=== PATIENT | male | born 1960 | race Caucasian/White ===

== ENCOUNTER 2018-09-22 10:39 | Emergency (ER) | payer OTHER, MEDICARE ==
[2018-09-22 11:05] VITALS: BP 87/53
--- NOTE | 2018-09-22 12:47 | EDM.PDOC ---
ED HPI GENERAL MEDICAL PROBLEM - General Chief Complaint: Cardiovascular Problem Stated Complaint: FROM CLINIC DIZZY;LOW BLOOD PRESSURE Time Seen by Provider: 09/22/18 11:20 Source of Information: Reports: Patient, Family History Limitations: Reports: No Limitations - History of Present Illness INITIAL COMMENTS - FREE TEXT/NARRATIVE: 58-year-old male with chronic lower extremity edema and progressive weakness presented to clinic for follow-up and was found to be hypotensive so was sent to the emergency room. He does feel dizzy and lightheaded, has no energy. No pain. Intermittent visual disturbance of the left eye which is chronic. Onset: Gradual Associated Symptoms: Reports: Malaise, Weakness. Denies: Confusion, Chest Pain , Cough, Diaphoresis, Fever/Chills, Nausea/Vomiting Lower Back Pain Score (Numeric/FACES): 6 - Related Data Allergies Allergy/AdvReac Type Severity Reaction Status Date / Time amiodarone Allergy Burning Verified 09/22/18 11:03 insulin aspart [From Novolog] Allergy Rash Verified 09/22/18 11:03 tape Allergy Blisters Uncoded 04/15/16 16:24 Home Meds: Home Meds Nitroglycerin [Nitrostat] 0.4 mg SL ASDIRECTED 11/16/14 [History] Testosterone Cypionate 1.5 ml IM .[id number] 11/16/14 [History] Cyanocobalamin (Vitamin B12) [Vitamin B12] 1,000 mcg PO DAILY #100 tablet [Rx] Multivitamin [Multivitamins] 1 each PO BID #100 tab.chew 03/19/16 [Rx] Furosemide 1 tab PO DAILY 09/22/18 [History] Past Medical History Cardiovascular History: Reports: Angina, CAD, High Cholesterol, Hypertension, [place] , Stents Respiratory History: Reports: Sleep Apnea Gastrointestinal History: Reports: GERD Genitourinary History: Reports: Acute Renal Failure, Chronic Renal Insuffiency, Renal Disease Musculoskeletal History: Reports: Back Pain, Chronic, Fracture Endocrine/Metabolic History: Reports: Diabetes, Type II, IDDM, Obesity/BMI 30+ - Infectious Disease History Infectious Disease History: Reports: Chicken Pox, Measles, Mumps - Past Surgical History HEENT Surgical History: Reports: Adenoidectomy, Tonsillectomy Cardiovascular Surgical History: Reports: Coronary Artery Stent GI Surgical History: Reports: Bariatric Procedure, Cholecystectomy, Hernia Repair/Other Male Surgical History: Reports: Circumcision Musculoskeletal Surgical History: Reports: Other (See Below) Other Musculoskeletal Surgeries/Procedures:: kienbocks disease with wrist repair Social & Family History - Tobacco Use Smoking Status *Q: Heavy Tobacco Smoker Years of Tobacco use: 40 Packs/Tins Daily: 1 - Recreational Drug Use Recreational Drug Use: No ED ROS GENERAL - Review of Systems Review Of Systems: See Below Constitutional: Reports: Malaise. Denies: Fever, Chills HEENT: Reports: Vision Change (Some intermittent blurriness of the left eye) Respiratory: Denies: Shortness of Breath Cardiovascular: Reports: Other (Recent echocardiogram was reassuring). Denies: Chest Pain, Palpitations GI/Abdominal: Reports: No Symptoms Neurological: Reports: Weakness ED EXAM, GENERAL - Physical Exam Exam: See Below Exam Limited By: No Limitations General Appearance: Alert, No Apparent Distress Eye Exam: Bilateral Eye: EOMI, PERRL Respiratory/Chest: No Respiratory Distress, Lungs Clear Cardiovascular: Regular Rate, Rhythm. No: Extra Beats GI/Abdominal: Soft, Non-Tender Extremities: Other (Significant lower extremity edema proximal to the knees and distally. Bilaterally symmetric.) Psychiatric: Depressed Mood Skin Exam: Warm, Dry Course - Vital Signs Last Recorded V/S: Last Vital Signs Temp 92.8 F L 09/22/18 11:01 Pulse 61 09/22/18 11:01 Resp 14 09/22/18 11:01 BP 87/53 L 09/22/18 11:01 Pulse Ox 96 09/22/18 11:01 - Orders/Labs/Meds Labs: Laboratory Tests 09/22/18 09/22/18 09/22/18 Range/Units 11:40 11:40 12:25 WBC 6.1 (4.5-11.0) K/uL RBC 2.59 L (4.30-5.90) M/uL Hgb 9.2 L D (12.0-15.0) g/dL Hct 27.4 L (40.0-54.0) % MCV 106 H (80-98) fL MCH 36 H (27-31) pg MCHC 34 (32-36) % Plt Count 80 L (150-400) K/uL Neut % (Auto) 71 H (36-66) % Lymph % (Auto) 22 L (24-44) % [place] % (Auto) 7 H (2-6) % Eos % (Auto) 1 L (2-4) % Baso % (Auto) 0 (0-1) % Sodium 142 (140-148) mmol/L Potassium 3.9 (3.6-5.2) mmol/L Chloride 106 (100-108) mmol/L Carbon Dioxide 28 (21-32) mmol/L Anion Gap 7.6 (5.0-14.0) mmol/L BUN 41 H D (7-18) mg/dL Creatinine 1.3 (0.8-1.3) mg/dL Est Cr Clr Drug Dosing 48.36 mL/min Estimated GFR (MDRD) 57 L (>60) Glucose 60 L (74-106) mg/dL Calcium 8.6 (8.5-10.1) mg/dL Total Bilirubin 0.8 (0.2-1.0) mg/dL AST 57 H (15-37) U/L ALT 64 (12-78) U/L Alkaline Phosphatase 145 H D (46-116) U/L Total Protein 5.2 L (6.4-8.2) g/dL Albumin 2.6 L (3.4-5.0) g/dL Globulin 2.6 (2.3-3.5) g/dL Albumin/Globulin Ratio 1.0 L (1.2-2.2) Urine Color Yellow Urine Appearance Clear Urine pH 5.0 (4.5-8.0) Ur Specific [place] 1.010 (1.008-1.030) Urine Protein Trace (NEGATIVE) mg/dL Urine Glucose (UA) Normal (NEGATIVE) mg/dL Urine Ketones Negative (NEGATIVE) mg/dL Urine Occult Blood Negative (NEGATIVE) Urine Nitrite Negative (NEGAITVE) Urine Bilirubin Negative (NEGATIVE) Urine Urobilinogen Normal (NORMAL) mg/dL Ur Leukocyte Esterase Negative (NEGATIVE) Urine RBC Not seen (0-5) Urine WBC 0-5 (0-5) Ur Epithelial Cells Not seen Amorphous Sediment Moderate Urine Bacteria Not seen Urine Mucus Not seen - Re-Assessments/Exams Free Text/Narrative Re-Assessment/Exam: 09/22/18 12:46 CBC, CMP and UA were obtained. 09/22/18 13:03 CBC revealed a hemoglobin of 9.1, this is concerning as his hemoglobin was 11.8 in early July. The rest of his labs look relatively reassuring, his UA is negative and specific gravity is normal at 1.010. I don't think he is significantly dehydrated. His BUN is also elevated at 41 which is concerning for a GI bleed. I offered the patient hospitalization but he has an appointment with his primary doctor tomorrow and would like to discuss this with him. Departure - Departure Time of Disposition: 13:15 Disposition: Home, Self-Care 01 Condition: Fair Clinical Impression: Peripheral edema, Weakness Anemia Qualifiers: Anemia type: iron deficiency Iron deficiency anemia type: chronic blood loss Qualified Code(s): D50.0 - Iron deficiency anemia secondary to blood loss ( chronic) Instructions: Anemia Referrals: Sammy Vallejo MD [Primary Care Provider] - Forms: ED Department Discharge Care Plan Goals: Take lab results with to your appointment tomorrow, continue your medications as directed.
== END 2018-09-22 13:28 | disposition home or self-care (01) ==
LOC: JP.ED 10:39
DX: R60.0 Localized edema (principal); R53.1 Weakness; D50.0 Iron deficiency anemia secondary to blood loss (chronic); I12.9 Hypertensive chronic kidney disease with stage 1 through stage 4 chronic kidney disease, or unspecified chronic kidney disease; E11.22 Type 2 diabetes mellitus with diabetic chronic kidney disease; N18.9 Chronic kidney disease, unspecified; I25.10 Atherosclerotic heart disease of native coronary artery without angina pectoris; E78.00 Pure hypercholesterolemia, unspecified; I25.2 Old myocardial infarction; K21.9 Gastro-esophageal reflux disease without esophagitis; F17.210 Nicotine dependence, cigarettes, uncomplicated; Z88.8 Allergy status to other drugs, medicaments and biological substances; Z79.899 Other long term (current) drug therapy; Z95.5 Presence of coronary angioplasty implant and graft
CPT/HCPCS: 36415; 80053; 81001; 85025; 99283; 99284

== ENCOUNTER 2018-09-26 10:21 | Inpatient (IN) | payer OTHER, MEDICARE ==
[2018-09-26] MEDS ORDERED: Acetaminophen 650 MG Supp RECTAL PRN (11:11)
[2018-09-26] MEDS ORDERED: Dextrose 5%-Lactated Ringers 1,000 ML IV SCH (11:15)
[2018-09-26] MEDS: Furosemide 20 MG Tab PO SCH ×2 (14:04→14:08)
[2018-09-26] MEDS: Pantoprazole 40 MG Vial IV SCH ×2 (14:04→14:14)
[2018-09-26] MEDS ORDERED: Bisacodyl 5 MG Tab PO ONE ×2 (16:30→20:00)
[2018-09-26] MEDS ORDERED: Polyethylene Glycol 3350 Powder 238 GM Bot PO ONE (17:00)
[2018-09-26] MEDS: Dextrose 5%-Lactated Ringers 1,000 ML with MVI, Adult with Vitamin K 10 ML, Chromium/Co... IV SCH ×4 (21:47)
[2018-09-27] MEDS ORDERED: Propofol 200 MG/20 ML SDV ONE ×2 (07:06→09:04)
[2018-09-27] MEDS ORDERED: fentaNYL 100 MCG/2 ML SDV ONE (07:06)
[2018-09-27] MEDS ORDERED: Midazolam 1 MG/ML 2 ML SDV ONE (07:07)
[2018-09-27] MEDS ORDERED: Bupivacaine 0.5% 50 ML MDV ONE (07:24)
[2018-09-27] MEDS ORDERED: Lidocaine 1% with EPINEPHrine 1:100,000 50 ML MDV ONE (07:25)
[2018-09-27] MEDS ORDERED: Lactated Ringers 1,000 ML ONE (09:47)
[2018-09-27] MEDS: Dextrose 5%-Lactated Ringers 1,000 ML with MVI, Adult with Vitamin K 10 ML, Chromium/Co... IV SCH ×4 (11:43)
--- NOTE | 2018-09-27 12:14 | PCM.CONS ---
H&P History of Present Illness - General Date of Service: 09/27/18 Admit Problem/Dx: Admission Diagnosis/Problem Admission Diagnosis/Problem Hypotension Source of Information: Patient, Family, Provider History Limitations: Reports: Altered Mental Status (sleepy after anesthesia ) - History of Present Illness Initial Comments - Free Text/Narative: Galen was admitted to the hospital yesterday from the clinic with dehydration and malnourishment. I was asked to see him by Dr. Nicolas regarding newly diagnosed hypothyroidism. He is in the early recovery phase after having anesthesia for an EGD and colonoscopy and history is somewhat limited. He does report a downhill slide over the past couple of years but more impressively in the past couple of months. He has lost significant weight. Appetite has been good but anytime he eats he has significant diarrhea afterwards. He does not endorse abdominal pain. He has not had any fevers. He does not endorse shortness of breath or dyspnea with exertion. He does endorse significant fatigue and falls asleep multiple times per day. He thinks he's been sleeping much more than his normal. He fatigues quickly whenever he is trying to perform a task. He has not noticed any changes with his hair. He does have chronic lower extremity edema which is relatively stable. EGD this morning was fairly unremarkable and colonoscopy was incomplete as far as the prep was concerned but visualization was thought to be adequate and no acute findings were noted. He is receiving a unit of blood for hemoglobin of 8.5. He has multiple bottles of albumin ordered. TPN is going to be started through a Godfrey catheter that was placed today. Laboratory testing this morning revealed a TSH of nearly 40. He does not have a history of hypothyroidism. Buttock Pain Score (Numeric/FACES): 4 - Related Data Allergies/Adverse Reactions: Allergies Allergy/AdvReac Type Severity Reaction Status Date / Time amiodarone Allergy Burning Verified 09/22/18 11:03 insulin aspart [From Novolog] Allergy Rash Verified 09/22/18 11:03 tape Allergy Blisters Uncoded 04/15/16 16:24 Home Medications: Home Meds Nitroglycerin [Nitrostat] 0.4 mg SL ASDIRECTED 11/16/14 [History] Testosterone Cypionate 1.5 ml IM .[id number] 11/16/14 [History] Cyanocobalamin (Vitamin B12) [Vitamin B12] 1,000 mcg PO DAILY #100 tablet [Rx] Multivitamin [Multivitamins] 1 each PO BID #100 tab.chew 03/19/16 [Rx] Furosemide 0.5 tab PO DAILY 09/22/18 [History] Calcium Carbonate/Vitamin D3 [Calcium 500-Vit D3 600 Tablet] 1 tab PO BID [History] Folic Acid 1 mg PO DAILY 09/26/18 [History] Loperamide [Imodium] 2 mg PO QID 09/26/18 [History] Nitroglycerin [Nitrostat] 0.4 mg SL ASDIRECTED PRN 09/26/18 [History] Pantoprazole Sodium [Protonix] 40 mg PO DAILY 09/26/18 [History] Thiamine HCl [B-1] 100 mg PO DAILY 09/26/18 [History] Zinc Gluconate [Zinc] 15 mg PO DAILY 09/26/18 [History] Past Medical History Cardiovascular History: Reports: Angina, CAD, High Cholesterol, Hypertension, [place] , Stents Respiratory History: Reports: Sleep Apnea Other Respiratory History: sleep apnea resolved with weight loss Gastrointestinal History: Reports: GERD Other Gastrointestinal History: GERD resolved with bariatric surgery Genitourinary History: Reports: Acute Renal Failure, Chronic Renal Insuffiency, Renal Disease Musculoskeletal History: Reports: Back Pain, Chronic, Fracture Endocrine/Metabolic History: Reports: Diabetes, Type II, IDDM Other Endocrine/Metabolic History: diabetes resloved with bariatric surgery - Infectious Disease History Infectious Disease History: Reports: Chicken Pox, Measles, Mumps - Past Surgical History HEENT Surgical History: Reports: Adenoidectomy, Tonsillectomy Cardiovascular Surgical History: Reports: Coronary Artery Stent GI Surgical History: Reports: Bariatric Procedure, Cholecystectomy, Hernia Repair/Other Male Surgical History: Reports: Circumcision Musculoskeletal Surgical History: Reports: Other (See Below) Other Musculoskeletal Surgeries/Procedures:: 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 Social & Family History - Family History Family Medical History: Noncontributory - Tobacco Use Smoking Status *Q: Current Every Day Smoker Years of Tobacco use: 40 Packs/Tins Daily: 1 Used Tobacco, but Quit: No Second Hand Smoke Exposure: Yes - Caffeine Use Caffeine Use: Reports: Coffee, Energy Drinks, Soda, Tea - Alcohol Use Alcohol Use History: No - Recreational Drug Use Recreational Drug Use: No H&P Review of Systems - Review of Systems: Review Of Systems: See Below Free Text/Narrative: A complete 12 point review of systems was obtained. Pertinent positives and negatives are noted in the history of present illness. All other systems were reviewed and were negative except as noted. Exam - Exam Exam: See Below - Vital Signs Vital Signs: Last Vital Signs Temp 35.3 C 09/27/18 12:06 Pulse 50 L 09/27/18 12:06 Resp 22 H 09/27/18 12:06 BP 86/52 L 09/27/18 12:06 Pulse Ox 94 L 09/27/18 11:47 Weight: 55 kg - Exam Quality Assessment: Supplemental Oxygen General: Alert, Oriented, Cooperative, Lethargic HEENT: Conjunctiva Clear, Other (poor dentition ). No: Mucosa Moist & [place] (dry ), Scleral Icterus Neck: Supple, Trachea Midline. No: Lymphadenopathy Lungs: Clear to Auscultation, Normal Respiratory Effort Cardiovascular: Regular Rate, Regular Rhythm. No: Systolic Murmur GI/Abdominal Exam: Soft, Non-Tender, No Distention, Abnormal Bowel Sounds ( hypoactive) Extremities: Pedal Edema (pitting edema to midshin bilaterally ), Other (mild swelling both hands). No: Increased Warmth Skin: Warm, Dry Neuro Extensive - Mental Status: Alert, Slow Response to Commands Neuro Extensive - Motor, Sensory, Reflexes: CN II-XII Intact. No: Dysarthria, Tremor Psychiatric: Alert. No: Anxious - Patient Data Lab Results Last 24 hrs: Laboratory Results - last 24 hr 09/27/18 09/27/18 09/27/18 Range/Units 04:50 04:50 06:38 WBC 4.4 L (4.5-11.0) K/uL RBC 2.48 L (4.30-5.90) M/uL Hgb 8.7 L (12.0-15.0) g/dL Hct 26.2 L (40.0-54.0) % MCV 106 H (80-98) fL MCH 35 H (27-31) pg MCHC 33 (32-36) % Plt Count 57 L (150-400) K/uL Sodium 146 (140-148) mmol/L Potassium 3.6 (3.6-5.2) mmol/L Chloride 111 H (100-108) mmol/L Carbon Dioxide 30 (21-32) mmol/L Anion Gap 8.6 (5.0-14.0) mmol/L BUN 31 H (7-18) mg/dL Creatinine 1.0 (0.8-1.3) mg/dL Est Cr Clr Drug Dosing 62.64 mL/min Estimated GFR (MDRD) > 60 (>60) Glucose 76 (74-106) mg/dL Calcium 8.9 (8.5-10.1) mg/dL Phosphorus 2.5 (2.5-4.9) mg/dL Magnesium 1.9 (1.8-2.4) mg/dL Total Bilirubin 0.8 (0.2-1.0) mg/dL AST 44 H (15-37) U/L ALT 51 (12-78) U/L Alkaline Phosphatase 116 (46-116) U/L NT-Pro-B Natriuret Pep 276 H (5-125) pg/mL Total Protein 4.7 L (6.4-8.2) g/dL Albumin 2.5 L (3.4-5.0) g/dL Globulin 2.2 L (2.3-3.5) g/dL Albumin/Globulin Ratio 1.1 L (1.2-2.2) TSH, Ultra Sensitive 39.961 H (0.358-3.740) uIU/mL Blood Type Gel Antibody Screen Crossmatch 09/27/18 Range/Units 06:40 WBC (4.5-11.0) K/uL RBC (4.30-5.90) M/uL Hgb (12.0-15.0) g/dL Hct (40.0-54.0) % MCV (80-98) fL MCH (27-31) pg MCHC (32-36) % Plt Count (150-400) K/uL Sodium (140-148) mmol/L Potassium (3.6-5.2) mmol/L Chloride (100-108) mmol/L Carbon Dioxide (21-32) mmol/L Anion Gap (5.0-14.0) mmol/L BUN (7-18) mg/dL Creatinine (0.8-1.3) mg/dL Est Cr Clr Drug Dosing mL/min Estimated GFR (MDRD) (>60) Glucose (74-106) mg/dL Calcium (8.5-10.1) mg/dL Phosphorus (2.5-4.9) mg/dL Magnesium (1.8-2.4) mg/dL Total Bilirubin (0.2-1.0) mg/dL AST (15-37) U/L ALT (12-78) U/L Alkaline Phosphatase (46-116) U/L NT-Pro-B Natriuret Pep (5-125) pg/mL Total Protein (6.4-8.2) g/dL Albumin (3.4-5.0) g/dL Globulin (2.3-3.5) g/dL Albumin/Globulin Ratio (1.2-2.2) TSH, Ultra Sensitive (0.358-3.740) uIU/mL Blood Type O POSITIVE Gel Antibody Screen Negative Crossmatch See Detail Result Diagrams: 09/27/18 04:50 09/27/18 04:50 Imaging Impressions Last 24 hrs: CXR - images from Godfrey insertion personally reviewed - catheter tip appears to be in a good location. No obvious infiltrate. Consult PN Assessment/Plan POD#: 0 Procedures: Procedures ASSAY ALKALINE PHOSPHATASE (11/20/14) BILIRUBIN TOTAL (11/20/14) BLOOD TYPING SEROLOGIC ABO (09/26/15) BLOOD TYPING SEROLOGIC RH(D) (09/26/15) CHEST X-RAY 2VW FRONTAL&LATL (11/20/14) COMPLETE CBC AUTOMATED (11/20/14) COMPLETE CBC W/AUTO DIFF WBC (09/22/18) COMPREHEN METABOLIC PANEL (09/22/18) EMERGENCY DEPT VISIT (09/22/18) GLUCOSE BLOOD TEST (11/20/14) HYDRATION IV INFUSION INIT (04/15/16) LAP VENT/ABD HERNIA REPAIR (11/20/14) LAPAROSCOPIC CHOLECYSTECTOMY (11/20/14) POLYSOM ANY AGE 1-3> GISELLA (02/03/16) RBC ANTIBODY SCREEN (09/26/15) ROUTINE VENIPUNCTURE (09/22/18) THER/PROPH/DIAG IV INF ADDON (04/15/16) THER/PROPH/DIAG IV INF INIT (04/15/16) TTE W/DOPPLER COMPLETE (08/09/18) TX/PRO/DX INJ NEW DRUG ADDON (04/15/16) URINALYSIS AUTO W/SCOPE (09/22/18) (1) Acquired hypothyroidism SNOMED Code(s): 644789694 Code(s): E03.9 - HYPOTHYROIDISM, UNSPECIFIED Current Visit: Yes Problem List Initiated/Reviewed/Updated: Yes My Orders Last 24 Hours: My Active Orders 09/27/18 11:00 Levothyroxine [Synthroid] 100 mcg PO ACBREAKFAST 09/27/18 12:11 T4 FREE [CHEM] Routine 09/28/18 04:00 CRP [C-REACTIVE PROTEIN] [CHEM] Timed FERRITIN [CHEM] Timed VITAMIN B12 [CHEM] Timed Plan: ASSESSMENT AND PLAN - Acquired hypothyroidism - TSH is elevated at nearly 40 and T4 is low consistent with hypothyroid state. I think he would benefit from supplementation and will start at 1.6 mcg/kg which is roughly 100 g. -Initiate levothyroxine 100 mcg daily starting today -Recheck level in 4-6 weeks Dehydration and malnutrition - significant weight loss over the past couple of years. He does have a history of a duodenal switch. He has received IV fluids overnight. A Godfrey catheter has been placed to start TPN. Anemia is likely related to nutritional deficiencies. -Additional cares per surgical team Hypotension and bradycardia - still appears to have intravascular volume depletion. Probable contribution from his hypothyroidism. He is receiving albumin which will hopefully help his blood pressure and the blood transfusion should help as well. Stress dose steroids with hydrocortisone could be considered if he remains hypotensive and/or bradycardic. Kentrell Merino M.D. Requesting Provider: Dr Nicolas Date Consult Requested: 09/27/18 Reason for Consult: hypothyroidism Patient History Reviewed: Yes Admission H&P Reviewed: Yes Notified Requestor: No Time Spent (in minutes): 50
[2018-09-27] MEDS: Aspirin 81 MG Tab.EC PO SCH (12:24)
[2018-09-27] MEDS: Levothyroxine 100 MCG Tab PO SCH (12:26)
[2018-09-27] MEDS ORDERED: traMADol 50 MG Tab PO PRN (12:48)
[2018-09-27] MEDS: Pantoprazole 40 MG Vial IV SCH (13:00)
[2018-09-27] MEDS ORDERED: Acetaminophen 1,000 MG in Premix Bag 1 BAG IV ONE (13:00)
[2018-09-27] MEDS: Levofloxacin/Dextrose 5%-Water 500 MG in Premix Bag 1 BAG IV ONE ×2 (13:25→20:47)
[2018-09-27] MEDS: Clindamycin Phosphate 900 MG in Sodium Chloride 0.9% 100 ML IV ONE ×2 (13:26→20:47)
[2018-09-27] MEDS ORDERED: Sodium Chloride 0.9% 1,000 ML IV SCH (14:00)
[2018-09-27] MEDS: 1: AA 5%/Calcium/D15W/Lytes 1,000 ML with MVI, Adult with Vitamin K 10 ML, Chromium/Copp IV SCH ×3 (14:31)
[2018-09-27] MEDS: Furosemide 20 MG Tab PO SCH (15:03)
[2018-09-27] MEDS ORDERED: Benzocaine/Cetylpyridinium/Menthol Lozenge MUCMEM PRN (15:13)
[2018-09-27] MEDS ORDERED: Furosemide 20 MG/2 ML VIAL IV ONE (16:00)
[2018-09-27] MEDS ORDERED: Fat Emulsion 100 ML IV ONE (16:00)
[2018-09-27] MEDS ORDERED: Dextrose 5%-Lactated Ringers 1,000 ML IV SCH (17:15)
[2018-09-27] MEDS: Acetaminophen 325 MG Tab PO PRN ×2 (18:20→21:43)
[2018-09-27] MEDS: Clindamycin Phosphate 900 MG in Sodium Chloride 0.9% 100 ML IV SCH (21:44)
[2018-09-28] MEDS: 1: AA 5%/Calcium/D15W/Lytes 1,000 ML with MVI, Adult with Vitamin K 10 ML, Chromium/Copp IV SCH ×6 (03:13→15:06)
[2018-09-28] MEDS: Levothyroxine 100 MCG Tab PO SCH (07:28)
[2018-09-28] MEDS ORDERED: Levofloxacin/Dextrose 5%-Water 500 MG in Premix Bag 1 BAG IV SCH (08:00)
[2018-09-28] MEDS: Magnesium Sulfate/Water 2 GM in Premix Bag 1 BAG IV SCH ×3 (09:59→21:43)
[2018-09-28] MEDS: Aspirin 81 MG Tab.EC PO SCH (09:59)
--- NOTE | 2018-09-28 10:53 | PN ---
DATE OF SERVICE: 09/27/2018 The patient has been afebrile with stable vital signs. Overnight, heart rates running in the 40s to 50s, but with, otherwise, stable appearance. He underwent a colonoscopy and upper endoscopy today, which showed only some very mild redness in the medial prepyloric area related to some bile reflux from the pylorus, but otherwise gross exam was unremarkable. The patient did cough up some bile at the conclusion of the endoscopies, and he had aspirated somewhat, although it did not appear to be much. We did look in, with a gastroscope, the cavity of the stomach containing bile and could see the cords without any obvious bile into the area below the cords per se. We did start him on Levaquin and clindamycin empirically. Presently, in the recovery room, his O2 stats are in the 95% range. Basically, we had a difficult central line insertion due to his veins being quite small and tortuous, but we were able to eventually get a double-lumen Godfrey catheter via the right internal jugular vein approach and that should be a satisfactory access site. With hydration overnight, his hemoglobin did drop to 8.7, and we will give him 1 unit of packed RBCs today. Quite strikingly, his TSH was 39.96, so he is quite hypothyroid, which may explain a fair bit of what is going on here, and Dr. Merino will be consulted regarding that. Otherwise, we will begin some TPN today, give him 1 unit of packed RBCs and some additional albumin as well, and have Physical Therapy see the patient daily to help him with the rehabilitation phase. Eventually, the patient will likely need to have a revision of the duodenal switch to a more flexible configuration, but we will need him in a much more medically optimum position prior to that. Manfred Nicolas MD Job #: [id number]
--- NOTE | 2018-09-28 11:08 | PN ---
DATE OF SERVICE: 09/28/2018 The patient has been afebrile with stable vital signs. Heart rate is more up in the 70s today, which I think may be an effect of him overall improving in terms of his general status as well as possible thyroid status. He was started on Synthroid 100 mcg a day yesterday per Dr. Merino. Otherwise, oral intake remains fairly good. We will continue the TPN at 2 L a day and increase the amount of albumin as his serum albumin is 2.2 this morning. The magnesium is also low and that will be supplemented. His hemoglobin is 9.7. With his underlying cardiovascular status and general debility, we will give him 1 unit of packed RBCs as well. His electrolytes show a high chloride and CO2, so we will switch the normal saline to D5 half-normal saline, keep open, and make adjustments to the TPN and reduce the amount of acetate and chloride. Overall, at some point, the patient will likely need to have his duodenal switch revised to a more proximal status, but it would be much better to get him tuned up from a general medical and nutritional standpoint prior to that. Manfred Nicolas MD Job #: [id number]
[2018-09-28] MEDS: Dextrose 5%-0.45% NaCl 1,000 ML IV SCH (11:22)
[2018-09-28] MEDS: Clindamycin Phosphate 900 MG in Sodium Chloride 0.9% 100 ML IV SCH ×2 (11:23→21:42)
--- NOTE | 2018-09-28 11:51 | PCM.CONSN ---
- General Info Date of Service: 09/28/18 Subjective Update: no acute events overnight. He is still fairly lethargic today. Oral intake has not been great. He is waiting of pain all over. He continues to complain of feeling dizzy/woozy. Lower extremity edema is stable. Heart rate has improved today and is in the 60-70 range. Blood pressure has been in normal range today. Functional Status: Reports: Pain Controlled - Review of Systems General: Reports: Weakness, Fatigue HEENT: Reports: Sore Throat - Patient Data Vitals - Most Recent: Last Vital Signs Temp 37.5 C 09/28/18 11:21 Pulse 85 09/28/18 11:21 Resp 18 09/28/18 11:21 BP 137/78 09/28/18 11:21 Pulse Ox 89 L 09/28/18 11:21 Weight - Most Recent: 55 kg I&O - Last 24 Hours: Intake & Output 09/27/18 09/28/18 09/28/18 22:59 06:59 14:59 Intake Total 1383 1419 399 Output Total 2350 300 300 Balance -967 1119 99 Lab Results Last 24 Hours: Laboratory Results - last 24 hr 09/27/18 09/27/18 09/28/18 Range/Units 06:40 12:11 05:07 WBC 9.2 (4.5-11.0) K/uL RBC 2.97 L (4.30-5.90) M/uL Hgb 9.7 L (12.0-15.0) g/dL Hct 29.1 L (40.0-54.0) % MCV 98 (80-98) fL MCH 33 H (27-31) pg MCHC 33 (32-36) % Plt Count 49 L (150-400) K/uL Sodium (140-148) mmol/L Potassium (3.6-5.2) mmol/L Chloride (100-108) mmol/L Carbon Dioxide (21-32) mmol/L Anion Gap (5.0-14.0) mmol/L BUN (7-18) mg/dL Creatinine (0.8-1.3) mg/dL Est Cr Clr Drug Dosing mL/min Estimated GFR (MDRD) (>60) Glucose (74-106) mg/dL Calcium (8.5-10.1) mg/dL Phosphorus (2.5-4.9) mg/dL Magnesium (1.8-2.4) mg/dL Ferritin (8-388) ng/ml Total Bilirubin (0.2-1.0) mg/dL AST (15-37) U/L ALT (12-78) U/L Alkaline Phosphatase (46-116) U/L C-Reactive Protein (0.0-0.3) mg/dL NT-Pro-B Natriuret Pep (5-125) pg/mL Total Protein (6.4-8.2) g/dL Albumin (3.4-5.0) g/dL Globulin (2.3-3.5) g/dL Albumin/Globulin Ratio (1.2-2.2) Vitamin B12 (193-986) pg/ml Free T4 0.74 L (0.76-1.46) ng/dL Blood Type O POSITIVE Gel Antibody Screen Negative Crossmatch See Detail 09/28/18 Range/Units 05:07 WBC (4.5-11.0) K/uL RBC (4.30-5.90) M/uL Hgb (12.0-15.0) g/dL Hct (40.0-54.0) % MCV (80-98) fL MCH (27-31) pg MCHC (32-36) % Plt Count (150-400) K/uL Sodium 146 (140-148) mmol/L Potassium 3.9 (3.6-5.2) mmol/L Chloride 110 H (100-108) mmol/L Carbon Dioxide 33 H (21-32) mmol/L Anion Gap 6.9 (5.0-14.0) mmol/L BUN 23 H (7-18) mg/dL Creatinine 1.0 (0.8-1.3) mg/dL Est Cr Clr Drug Dosing 62.64 mL/min Estimated GFR (MDRD) > 60 (>60) Glucose 150 H (74-106) mg/dL Calcium 8.4 L (8.5-10.1) mg/dL Phosphorus 3.1 (2.5-4.9) mg/dL Magnesium 1.5 L (1.8-2.4) mg/dL Ferritin 792 H (8-388) ng/ml Total Bilirubin 0.8 (0.2-1.0) mg/dL AST 41 H (15-37) U/L ALT 39 (12-78) U/L Alkaline Phosphatase 104 (46-116) U/L C-Reactive Protein 2.48 H (0.0-0.3) mg/dL NT-Pro-B Natriuret Pep 205 H (5-125) pg/mL Total Protein 4.3 L (6.4-8.2) g/dL Albumin 2.2 L (3.4-5.0) g/dL Globulin 2.1 L (2.3-3.5) g/dL Albumin/Globulin Ratio 1.1 L (1.2-2.2) Vitamin B12 2419 H (193-986) pg/ml Free T4 (0.76-1.46) ng/dL Blood Type Gel Antibody Screen Crossmatch [place] Results Last 24 Hours: Microbiology 09/27/18 07:50 CLOtest - Final Stomach NEGATIVE CLOTEST Med Orders - Current: Current Medications Acetaminophen (Tylenol) 650 mg PO Q4H PRN PRN Reason: ANALGESIA/FEVER Last Admin: 09/27/18 21:43 Dose: 650 mg Acetaminophen (Tylenol) 650 mg RECTAL Q4H PRN PRN Reason: ANALGESIA/FEVER Aspirin (Halfprin) 81 mg PO DAILY [facility] Last Admin: 09/28/18 09:59 Dose: 81 mg Benzocaine/Menthol (Cepacol Sore Throat) 1 lozenge MUCMEM 6XDAY PRN PRN Reason: Sore Throat Last Admin: 09/27/18 15:32 Dose: 1 john Heparin Sodium (Porcine) (Heparin Lock Flush 100 Units/Ml) 250 units 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 Albumin Human (Albumin 25%) 25 gm in 100 mls @ 25 mls/hr IV Q24H [facility] Stop: 09/30/18 15:59 Last Admin: 09/27/18 12:26 Dose: 25 mls/hr Multivitamins/Minerals 10 ml/Chromium/Copper/Manganese/Seleni/Zn 1 ml/ Amino Ac/ Electrol/Dextrose/Calcium 1,011 mls @ 80 mls/hr IV .BY DURATION [facility] Stop: 09/28/18 14:59 Last Admin: 09/27/18 14:31 Dose: 80 mls/hr Amino Ac/Electrol/Dextrose/Calcium (Clinimix E 5/15) 1,000 mls @ 80 mls/hr IV .BY DURATION [facility] Stop: 09/28/18 14:59 Last Admin: 09/28/18 03:13 Dose: 80 mls/hr Sodium Chloride (Normal Saline) 1,000 mls @ 0 mls/hr IV ASDIRECTED [facility] Stop: 09/28/18 11:59 Last Admin: 09/27/18 16:36 Dose: 25 mls/hr Levofloxacin/Dextrose 500 mg/ (Premix) 100 mls @ 100 mls/hr IV Q24H [facility] Last Admin: 09/28/18 07:28 Dose: 100 mls/hr Clindamycin Phosphate 900 mg/ (Sodium Chloride) 106 mls @ 212 mls/hr IV Q12H [facility] Last Admin: 09/28/18 11:23 Dose: 212 mls/hr Dextrose/Sodium Chloride (Dextrose 5%-1/2 Ns) 1,000 mls @ 0 mls/hr IV ASDIRECTED [facility] Last Admin: 09/28/18 11:22 Dose: 25 mls/hr Magnesium Sulfate 2 gm/ Premix 50 mls @ 25 mls/hr IV Q6H [facility] Stop: 10/01/18 05:59 Last Admin: 09/28/18 09:59 Dose: 25 mls/hr Albumin Human (Albumin 25%) 25 gm in 100 mls @ 25 mls/hr IV Q24H [facility] Stop: 09/30/18 19:59 Multivitamins/Minerals 10 ml/Chromium/Copper/Manganese/Seleni/Zn 1 ml/ Amino Ac/ Electrol/Dextrose/Calcium 1,011 mls @ 80 mls/hr IV .BY DURATION [facility] Amino Ac/Electrol/Dextrose/Calcium (Clinimix E 5/15) 1,000 mls @ 80 mls/hr IV .BY DURATION [facility] Fat Emulsion Intravenous (Intralipid 20%) 100 mls @ 9 mls/hr IV ONETIME ONE Stop: 09/29/18 05:06 Levothyroxine Sodium (Synthroid) 100 mcg PO ACBREAKFAST [facility] Last Admin: 09/28/18 07:28 Dose: 100 mcg Pantoprazole Sodium (Protonix Iv) 40 mg IV Q24H [facility] Last Admin: 09/27/18 13:00 Dose: 40 mg Sodium Chloride (Saline Flush) 5 ml IV 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 Tramadol HCl (Ultram) 50 mg PO Q4H PRN PRN Reason: Pain Last Admin: 09/27/18 15:17 Dose: 50 mg Discontinued Medications Bupivacaine HCl (Marcaine 0.5%) Confirm Administered Dose 50 ml .ROUTE .STK-MED ONE Stop: 09/27/18 07:25 Last Admin: 09/27/18 09:39 Dose: 7 ml Fentanyl (Sublimaze) Confirm Administered Dose 100 mcg .ROUTE .STK-MED ONE Stop: 09/27/18 07:07 Furosemide (Lasix) 20 mg PO BIDDIURETIC ELYSE Last Admin: 09/27/18 15:03 Dose: Not Given Furosemide (Lasix) 20 mg IV ONETIME ONE Stop: 09/27/18 16:01 Last Admin: 09/27/18 15:08 Dose: 20 mg Heparin Sodium (Porcine) (Heparin Lock Flush 100 Units/Ml) Confirm Administered Dose 1,500 units .ROUTE .STK-MED ONE Stop: 09/27/18 07:26 Last Admin: 09/27/18 09:39 Dose: 1,500 units Dextrose/Lactated Ringer's (Dextrose 5%-Lactated Ringers) 1,000 mls @ 100 mls/ hr IV ASDIRECTED [facility] Stop: 09/26/18 20:59 Last Admin: 09/26/18 12:03 Dose: 100 mls/hr Albumin Human (Albumin 25%) 25 gm in 100 mls @ 25 mls/hr IV ONETIME ONE Stop: 09/26/18 20:59 Last Admin: 09/26/18 16:54 Dose: 25 mls/hr Multivitamins/Minerals 10 ml/Chromium/Copper/Manganese/Zinc 1 ml/ Thiamine HCl 100 mg/Dextrose/Lactated Ringer's 1,012 mls @ 100 mls/hr IV .Q10H8M [facility] Stop: 09/27/18 13:59 Last Admin: 09/27/18 11:43 Dose: 100 mls/hr Levofloxacin/Dextrose 500 mg/ (Premix) 100 mls @ 100 mls/hr IV ONETIME ONE Stop: 09/27/18 09:29 Last Admin: 09/27/18 20:47 Dose: Not Given Clindamycin Phosphate 900 mg/ (Sodium Chloride) 106 mls @ 212 mls/hr IV ONETIME ONE Stop: 09/27/18 09:59 Last Admin: 09/27/18 20:47 Dose: Not Given Lactated Ringer's (Ringers, Lactated) Confirm Administered Dose 1,000 mls @ as directed .ROUTE .STK-MED ONE Stop: 09/27/18 09:48 Fat Emulsion Intravenous (Intralipid 20%) 100 mls @ 8.3 mls/hr IV ONETIME ONE Stop: 09/28/18 04:02 Last Admin: 09/27/18 16:30 Dose: 8.3 mls/hr Acetaminophen 1,000 mg/ Premix 100 mls @ 400 mls/hr IV NOW ONE Stop: 09/27/18 13:14 Last Admin: 09/27/18 12:56 Dose: 400 mls/hr Lidocaine/Epinephrine (Xylocaine 1% With Epinephrine 1:100,000) Confirm Administered Dose 50 ml .ROUTE .STK-MED ONE Stop: 09/27/18 07:26 Last Admin: 09/27/18 09:40 Dose: 7 ml Midazolam HCl (Versed 1 Mg/Ml) Confirm Administered Dose 2 mg .ROUTE .STK-MED ONE Stop: 09/27/18 07:08 Polyethylene Glycol (Miralax) 238 gm PO ONETIME ONE Stop: 09/26/18 17:01 Last Admin: 09/26/18 16:54 Dose: 238 gram Propofol (Diprivan 20 Ml) Confirm Administered Dose 200 mg .ROUTE .STK-MED ONE Stop: 09/27/18 07:07 Propofol (Diprivan 20 Ml) Confirm Administered Dose 200 mg .ROUTE .STK-MED ONE Stop: 09/27/18 09:05 - Exam Quality Assessment: No: Supplemental Oxygen General: Alert, Oriented, Cooperative, No Acute Distress, Lethargic HEENT: Pupils Equal Neck: Supple Lungs: Clear to Auscultation, Normal Respiratory Effort Cardiovascular: Regular Rate, Regular Rhythm, No Murmurs GI/Abdominal Exam: Normal Bowel Sounds, Soft, Non-Tender, No Distention Extremities: Pedal Edema, Increased Warmth (both hands) Skin: Warm, Dry Psy/Mental Status: Alert, Normal Affect Consult PN Assessment/Plan POD#: 1 Procedures: Procedures ASSAY ALKALINE PHOSPHATASE (11/20/14) BILIRUBIN TOTAL (11/20/14) BLOOD TYPING SEROLOGIC ABO (09/26/15) BLOOD TYPING SEROLOGIC RH(D) (09/26/15) C DIFF AMPLIFIED PROBE (09/23/18) CHEST X-RAY 2VW FRONTAL&LATL (11/20/14) COMPLETE CBC AUTOMATED (11/20/14) COMPLETE CBC W/AUTO DIFF WBC (09/22/18) COMPREHEN METABOLIC PANEL (09/22/18) EMERGENCY DEPT VISIT (09/22/18) GLUCOSE BLOOD TEST (11/20/14) HYDRATION IV INFUSION INIT (04/15/16) LAP VENT/ABD HERNIA REPAIR (11/20/14) LAPAROSCOPIC CHOLECYSTECTOMY (11/20/14) OVA AND PARASITES SMEARS (09/23/18) POLYSOM ANY AGE 1-3> GISELLA (02/03/16) RBC ANTIBODY SCREEN (09/26/15) ROUTINE VENIPUNCTURE (09/22/18) SMEAR COMPLEX STAIN (09/23/18) THER/PROPH/DIAG IV INF ADDON (04/15/16) THER/PROPH/DIAG IV INF INIT (04/15/16) TTE W/DOPPLER COMPLETE (08/09/18) TX/PRO/DX INJ NEW DRUG ADDON (04/15/16) URINALYSIS AUTO W/SCOPE (09/22/18) (1) Acquired hypothyroidism SNOMED Code(s): 619324704 Code(s): E03.9 - HYPOTHYROIDISM, UNSPECIFIED Current Visit: Yes Problem List Initiated/Reviewed/Updated: Yes My Orders Last 24 Hours: My Active Orders 09/27/18 11:00 Levothyroxine [Synthroid] 100 mcg PO ACBREAKFAST Plan: ASSESSMENT AND PLAN - Acquired hypothyroidism - TSH is elevated at nearly 40 and T4 is low consistent with hypothyroid state. I think he would benefit from supplementation and will start at 1.6 mcg/kg which is roughly 100 g. -continue levothyroxin -Recheck level in 4-6 weeks Dizziness/wooziness - patient has decreased level of consciousness and has been significantly fatigued. He did have a prolonged period of hypotension. -Head CT Dehydration and malnutrition - significant weight loss over the past couple of years. He does have a history of a duodenal switch. He has received IV fluids overnight. A Whitney catheter has been placed to start TPN. Anemia is likely related to nutritional deficiencies. -Additional cares per surgical team Hypotension and bradycardia - blood pressure and heart rate have improved with cares provided in the hospital. Kentrell Merino M.D.
[2018-09-28] MEDS: Pantoprazole 40 MG Vial IV SCH (15:06)
[2018-09-28] MEDS ORDERED: Fat Emulsion 100 ML IV ONE (18:00)
[2018-09-28] MEDS: Acetaminophen 325 MG Tab PO PRN (18:39)
[2018-09-29] MEDS: 1: AA 5%/Calcium/D15W/Lytes 1,000 ML with MVI, Adult with Vitamin K 10 ML, Chromium/Copp IV SCH ×6 (03:37→16:05)
[2018-09-29] MEDS: Magnesium Sulfate/Water 2 GM in Premix Bag 1 BAG IV SCH ×4 (03:38→23:05)
[2018-09-29] MEDS ORDERED: Central Total Parenteral Nutrition Bag SCH (07:30)
[2018-09-29] MEDS: Albuterol/Ipratropium 3.0-0.5 MG/3 ML Neb Soln NEB SCH ×3 (07:37→19:53)
[2018-09-29] MEDS: Levothyroxine 100 MCG Tab PO SCH (07:48)
--- NOTE | 2018-09-29 07:59 | PN ---
DATE OF SERVICE: 09/29/2018 SUBJECTIVE: Oral intake was 530. Urine output 2525. Vital signs have been stable. REVIEW OF SYSTEMS: GENERAL: Continues to report weakness. Dizziness is about the same, maybe a little bit improved, he states. HEENT: Negative. NECK: Negative. HEART: No chest pain. LUNGS: He does have a cough. Occasionally states his room is as dry as safari. ABDOMEN: Bowel movement yesterday. Denies any pain. EXTREMITIES: Left nonedematous. NEUROLOGIC: Intact. Full range of motion. SKIN: Without rash. Remainder of review of systems negative for any pertinent positives and negatives. OBJECTIVE: GENERAL: Shun Griffith is a 58-year-old male. He is weak. VITAL SIGNS: TPR is 96.5, pulse 84, blood pressure 125/91, respirations 16. Some of these vital signs are from 09/28/2018 at 2154 and 09/29/2018 at 3:36. HEENT: Negative. NECK: Supple. HEART: Regular rate and rhythm. LUNGS: Revealed wheezing in the right middle lobe. He has fair air exchange in bases and rhonchi with coughing. ABDOMEN: Soft, nontender. EXTREMITIES: There is less peripheral edema noted. ASSESSMENT: 1. Hypothyroidism. 2. Dehydration. 3. Malnutrition, requiring TPN therapy. 4. Hypotension. 5. Bradycardia. 6. SP duodenal switch. 7. Unspecified surgical malabsorption. 8. Chronic diarrhea. 9. Vitamin B deficiency. 10.Vitamin D deficiency. 11.Chronic kidney disease. 12.Coronary artery disease. 13.Mixed hyperlipidemia. PLAN: 1. Stop clindamycin and Levaquin. 2. DuoNebs q.i.d. and p.r.n. 3. Continue same TPN rate and content. 4. Check CBC, CMP, and phos in a.m. 5. Good pulmonary toilet. 6. We will evaluate p.r.n. or in a.m. Kelly Parham PA-C /[id number]
--- NOTE | 2018-09-29 09:32 | CR ---
CHEST: Portable CLINICAL HISTORY:SOB COMPARISON:2006 FINDINGS: Portable technique limits resolution. Heart size is normal. There is some pulmonary vascular cephalization. This may be positional There is a right jugular central venous line in place in the superior vena cava. There is no evidence of pneumothorax. There is a 2 cm nodular density in the left the perihilar region.. There is blunting of the left costophrenic angle . Impression: Limited portable chest. Right jugular catheter is in the superior vena cava. There is no evidence of pneumothorax Vascular cephalization may be due to position or some pulmonary venous hypertension 2 cm nodular density in the left perihilar region. Pulmonary masses not excluded. 2 view chest is recommended when patient's condition allows
[2018-09-29] MEDS: Aspirin 81 MG Tab.EC PO SCH (09:51)
[2018-09-29] MEDS: Acetaminophen 325 MG Tab PO PRN ×2 (09:51→16:47)
[2018-09-29] MEDS: Pantoprazole 40 MG Vial IV SCH (14:31)
--- NOTE | 2018-09-29 17:36 | PCM.CONSN ---
- General Info Date of Service: 09/29/18 Subjective Update: There were no acute events overnight. Patient is feeling better today with less dizziness and improved energy. Appetite is better today. Strength is better today. No fevers overnight. Functional Status: Reports: Pain Controlled, Tolerating Diet - Review of Systems General: Reports: Weakness - Patient Data Vitals - Most Recent: Last Vital Signs Temp 35.8 C 09/29/18 16:00 Pulse 86 09/29/18 16:00 Resp 16 09/29/18 16:00 BP 142/71 H 09/29/18 16:00 Pulse Ox 88 L 09/29/18 16:00 Weight - Most Recent: 55 kg I&O - Last 24 Hours: Intake & Output 09/29/18 09/29/18 09/29/18 06:59 14:59 22:59 Intake Total 1242 870 Output Total 1250 700 Balance -8 170 Lab Results Last 24 Hours: Laboratory Results - last 24 hr 09/27/18 09/29/18 09/29/18 Range/Units 06:40 04:00 04:00 WBC 4.4 L (4.5-11.0) K/uL RBC 3.32 L (4.30-5.90) M/uL Hgb 10.5 L (12.0-15.0) g/dL Hct 31.4 L (40.0-54.0) % MCV 95 (80-98) fL MCH 32 H (27-31) pg MCHC 33 (32-36) % Plt Count 40 L (150-400) K/uL Sodium 144 (140-148) mmol/L Potassium 3.8 (3.6-5.2) mmol/L Chloride 107 (100-108) mmol/L Carbon Dioxide 34 H (21-32) mmol/L Anion Gap 6.8 (5.0-14.0) mmol/L BUN 21 H (7-18) mg/dL Creatinine 0.9 (0.8-1.3) mg/dL Est Cr Clr Drug Dosing 69.60 mL/min Estimated GFR (MDRD) > 60 (>60) Glucose 128 H (74-106) mg/dL Calcium 8.4 L (8.5-10.1) mg/dL Phosphorus 2.7 (2.5-4.9) mg/dL Magnesium 2.7 H (1.8-2.4) mg/dL Total Bilirubin 1.2 H (0.2-1.0) mg/dL AST 46 H (15-37) U/L ALT 35 (12-78) U/L Alkaline Phosphatase 100 (46-116) U/L NT-Pro-B Natriuret Pep 489 H (5-125) pg/mL Total Protein 4.5 L (6.4-8.2) g/dL Albumin 2.5 L (3.4-5.0) g/dL Globulin 2.0 L (2.3-3.5) g/dL Albumin/Globulin Ratio 1.3 (1.2-2.2) Crossmatch See Detail Med Orders - Current: Current Medications Acetaminophen (Tylenol) 650 mg PO Q4H PRN PRN Reason: ANALGESIA/FEVER Last Admin: 09/29/18 16:47 Dose: 650 mg Acetaminophen (Tylenol) 650 mg RECTAL Q4H PRN PRN Reason: ANALGESIA/FEVER Albuterol/Ipratropium (Duoneb 3.0-0.5 Mg/3 Ml) 3 ml NEB Q6H REPLACED BY [facility] Last Admin: 09/29/18 13:50 Dose: 3 ml Aspirin (Halfprin) 81 mg PO DAILY REPLACED BY [facility] Last Admin: 09/29/18 09:51 Dose: Not Given Benzocaine/Menthol (Cepacol Sore Throat) 1 lozenge MUCMEM 6XDAY PRN PRN Reason: Sore Throat Last Admin: 09/27/18 15:32 Dose: 1 john Heparin Sodium (Porcine) (Heparin Lock Flush 100 Units/Ml) 250 units 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 Albumin Human (Albumin 25%) 25 gm in 100 mls @ 25 mls/hr IV Q24H REPLACED BY [facility] Stop: 09/30/18 15:59 Last Admin: 09/29/18 12:22 Dose: 25 mls/hr Dextrose/Sodium Chloride (Dextrose 5%-1/2 Ns) 1,000 mls @ 0 mls/hr IV ASDIRECTED [facility] Last Admin: 09/28/18 11:22 Dose: 25 mls/hr Magnesium Sulfate 2 gm/ Premix 50 mls @ 25 mls/hr IV Q6H REPLACED BY [facility] Stop: 10/01/18 05:59 Last Admin: 09/29/18 16:05 Dose: 25 mls/hr Albumin Human (Albumin 25%) 25 gm in 100 mls @ 25 mls/hr IV Q24H REPLACED BY [facility] Stop: 09/30/18 19:59 Last Admin: 09/29/18 16:04 Dose: 25 mls/hr Multivitamins/Minerals 10 ml/Chromium/Copper/Manganese/Seleni/Zn 1 ml/ Amino Ac/ Electrol/Dextrose/Calcium 1,011 mls @ 80 mls/hr IV .BY DURATION REPLACED BY [facility] Last Admin: 09/29/18 16:05 Dose: 80 mls/hr Amino Ac/Electrol/Dextrose/Calcium (Clinimix E 5/15) 1,000 mls @ 80 mls/hr IV .BY DURATION REPLACED BY [facility] Last Admin: 09/29/18 03:37 Dose: 80 mls/hr Levothyroxine Sodium (Synthroid) 100 mcg PO ACBREAKFAST REPLACED BY [facility] Last Admin: 09/29/18 07:48 Dose: 100 mcg Pantoprazole Sodium (Protonix Iv) 40 mg IV Q24H REPLACED BY [facility] Last Admin: 09/29/18 14:31 Dose: 40 mg Sodium Chloride (Saline Flush) 5 ml IV 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 Tramadol HCl (Ultram) 50 mg PO Q4H PRN PRN Reason: Pain Last Admin: 09/27/18 15:17 Dose: 50 mg Discontinued Medications Bupivacaine HCl (Marcaine 0.5%) Confirm Administered Dose 50 ml .ROUTE .STK-MED ONE Stop: 09/27/18 07:25 Last Admin: 09/27/18 09:39 Dose: 7 ml Fentanyl (Sublimaze) Confirm Administered Dose 100 mcg .ROUTE .STK-MED ONE Stop: 09/27/18 07:07 Furosemide (Lasix) 20 mg PO BIDDIURETIC REPLACED BY [facility] Last Admin: 09/27/18 15:03 Dose: Not Given Furosemide (Lasix) 20 mg IV ONETIME ONE Stop: 09/27/18 16:01 Last Admin: 09/27/18 15:08 Dose: 20 mg Heparin Sodium (Porcine) (Heparin Lock Flush 100 Units/Ml) Confirm Administered Dose 1,500 units .ROUTE .STK-MED ONE Stop: 09/27/18 07:26 Last Admin: 09/27/18 09:39 Dose: 1,500 units Dextrose/Lactated Ringer's (Dextrose 5%-Lactated Ringers) 1,000 mls @ 100 mls/ hr IV ASDIRECTED REPLACED BY [facility] Stop: 09/26/18 20:59 Last Admin: 09/26/18 12:03 Dose: 100 mls/hr Albumin Human (Albumin 25%) 25 gm in 100 mls @ 25 mls/hr IV ONETIME ONE Stop: 09/26/18 20:59 Last Admin: 09/26/18 16:54 Dose: 25 mls/hr Multivitamins/Minerals 10 ml/Chromium/Copper/Manganese/Zinc 1 ml/ Thiamine HCl 100 mg/Dextrose/Lactated Ringer's 1,012 mls @ 100 mls/hr IV .Q10H8M REPLACED BY [facility] Stop: 09/27/18 13:59 Last Admin: 09/27/18 11:43 Dose: 100 mls/hr Levofloxacin/Dextrose 500 mg/ (Premix) 100 mls @ 100 mls/hr IV ONETIME ONE Stop: 09/27/18 09:29 Last Admin: 09/27/18 20:47 Dose: Not Given Clindamycin Phosphate 900 mg/ (Sodium Chloride) 106 mls @ 212 mls/hr IV ONETIME ONE Stop: 09/27/18 09:59 Last Admin: 09/27/18 20:47 Dose: Not Given Lactated Ringer's (Ringers, Lactated) Confirm Administered Dose 1,000 mls @ as directed .ROUTE .STK-MED ONE Stop: 09/27/18 09:48 Multivitamins/Minerals 10 ml/Chromium/Copper/Manganese/Seleni/Zn 1 ml/ Amino Ac/ Electrol/Dextrose/Calcium 1,011 mls @ 80 mls/hr IV .BY DURATION REPLACED BY [facility] Stop: 09/28/18 14:59 Last Admin: 09/27/18 14:31 Dose: 80 mls/hr Amino Ac/Electrol/Dextrose/Calcium (Clinimix E 5/15) 1,000 mls @ 80 mls/hr IV .BY DURATION REPLACED BY [facility] Stop: 09/28/18 14:59 Last Admin: 09/28/18 03:13 Dose: 80 mls/hr Fat Emulsion Intravenous (Intralipid 20%) 100 mls @ 8.3 mls/hr IV ONETIME ONE Stop: 09/28/18 04:02 Last Admin: 09/27/18 16:30 Dose: 8.3 mls/hr Sodium Chloride (Normal Saline) 1,000 mls @ 0 mls/hr IV ASDIRECTED REPLACED BY [facility] Stop: 09/28/18 11:59 Last Admin: 09/27/18 16:36 Dose: 25 mls/hr Acetaminophen 1,000 mg/ Premix 100 mls @ 400 mls/hr IV NOW ONE Stop: 09/27/18 13:14 Last Admin: 09/27/18 12:56 Dose: 400 mls/hr Levofloxacin/Dextrose 500 mg/ (Premix) 100 mls @ 100 mls/hr IV Q24H REPLACED BY [facility] Last Admin: 09/28/18 07:28 Dose: 100 mls/hr Clindamycin Phosphate 900 mg/ (Sodium Chloride) 106 mls @ 212 mls/hr IV Q12H REPLACED BY [facility] Last Admin: 09/28/18 21:42 Dose: 212 mls/hr Fat Emulsion Intravenous (Intralipid 20%) 100 mls @ 9 mls/hr IV ONETIME ONE Stop: 09/29/18 05:06 Last Admin: 09/28/18 17:39 Dose: 9 mls/hr Lidocaine/Epinephrine (Xylocaine 1% With Epinephrine 1:100,000) Confirm Administered Dose 50 ml .ROUTE .STK-MED ONE Stop: 09/27/18 07:26 Last Admin: 09/27/18 09:40 Dose: 7 ml Midazolam HCl (Versed 1 Mg/Ml) Confirm Administered Dose 2 mg .ROUTE .STK-MED ONE Stop: 09/27/18 07:08 Non-Formulary Medication (Total Parenteral Nutrition, Central) 1,000 ml .XX .Continue Order REPLACED BY [facility] Stop: 09/29/18 12:00 Polyethylene Glycol (Miralax) 238 gm PO ONETIME ONE Stop: 09/26/18 17:01 Last Admin: 09/26/18 16:54 Dose: 238 gram Propofol (Diprivan 20 Ml) Confirm Administered Dose 200 mg .ROUTE .STK-MED ONE Stop: 09/27/18 07:07 Propofol (Diprivan 20 Ml) Confirm Administered Dose 200 mg .ROUTE .STK-MED ONE Stop: 09/27/18 09:05 - Exam Quality Assessment: No: Supplemental Oxygen General: Alert, Oriented, Cooperative, No Acute Distress Lungs: Normal Respiratory Effort Cardiovascular: Regular Rate, Regular Rhythm GI/Abdominal Exam: Soft, No Distention Extremities: Other (Purplish discoloration on the face and arms) Skin: Warm, Dry Psy/Mental Status: Alert, Normal Affect Consult PN Assessment/Plan Procedures: Procedures ASSAY ALKALINE PHOSPHATASE (11/20/14) BILIRUBIN TOTAL (11/20/14) BLOOD TYPING SEROLOGIC ABO (09/26/15) BLOOD TYPING SEROLOGIC RH(D) (09/26/15) C DIFF AMPLIFIED PROBE (09/23/18) CHEST X-RAY 2VW FRONTAL&LATL (11/20/14) COMPLETE CBC AUTOMATED (11/20/14) COMPLETE CBC W/AUTO DIFF WBC (09/22/18) COMPREHEN METABOLIC PANEL (09/22/18) EMERGENCY DEPT VISIT (09/22/18) GLUCOSE BLOOD TEST (11/20/14) HYDRATION IV INFUSION INIT (04/15/16) LAP VENT/ABD HERNIA REPAIR (11/20/14) LAPAROSCOPIC CHOLECYSTECTOMY (11/20/14) OVA AND PARASITES SMEARS (09/23/18) POLYSOM ANY AGE 1-3> GISELLA (02/03/16) RBC ANTIBODY SCREEN (09/26/15) ROUTINE VENIPUNCTURE (09/22/18) SMEAR COMPLEX STAIN (09/23/18) THER/PROPH/DIAG IV INF ADDON (04/15/16) THER/PROPH/DIAG IV INF INIT (04/15/16) TTE W/DOPPLER COMPLETE (08/09/18) TX/PRO/DX INJ NEW DRUG ADDON (04/15/16) URINALYSIS AUTO W/SCOPE (09/22/18) (1) Acquired hypothyroidism SNOMED Code(s): 960982736 Code(s): E03.9 - HYPOTHYROIDISM, UNSPECIFIED Current Visit: Yes Problem List Initiated/Reviewed/Updated: Yes My Orders Last 24 Hours: My Active Orders 09/29/18 09:27 HEMATOPATH CONSULTATION, SMEAR Routine 09/29/18 11:29 SUDARSHAN Thompson [Antiembolic Hose] [OM.PC] Routine Plan: ASSESSMENT AND PLAN - Acquired hypothyroidism - TSH is elevated at nearly 40 and T4 is low consistent with hypothyroid state. I think he would benefit from supplementation and will start at 1.6 mcg/kg which is roughly 100 g. 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 Dizziness was acute on chronic and seems to be slowly getting better. -Physical therapy Thrombocytopenia - significant decline in platelets down to 40,000 today. No obvious cause at this time but may be dilution from all the IV fluids. Peripheral smear will be collected and sent for pathologist evaluation. No concerning medications on his list. May be contribution from nutritional deficiency as well. Dehydration and malnutrition - significant weight loss over the past couple of years. He does have a history of a duodenal switch. He has received IV fluids overnight. A Whitney catheter has been placed to start TPN. Anemia is likely related to nutritional deficiencies. -Additional cares per surgical team Hypotension and bradycardia - resolved. Kentrell Merino M.D.
[2018-09-29] MEDS ORDERED: Furosemide 40 MG/4 ML VIAL IVPUSH ONE (22:45)
[2018-09-29] MEDS: Albuterol/Ipratropium 3.0-0.5 MG/3 ML Neb Soln NEB PRN (23:03)
[2018-09-30] MEDS: Dextrose 5%-0.45% NaCl 1,000 ML IV SCH (02:01)
[2018-09-30] MEDS: Magnesium Sulfate/Water 2 GM in Premix Bag 1 BAG IV SCH ×4 (03:11→22:06)
[2018-09-30] MEDS: 1: AA 5%/Calcium/D15W/Lytes 1,000 ML with MVI, Adult with Vitamin K 10 ML, Chromium/Copp IV SCH ×6 (05:54→19:31)
[2018-09-30] MEDS: Albuterol/Ipratropium 3.0-0.5 MG/3 ML Neb Soln NEB SCH ×4 (07:31→22:06)
[2018-09-30] MEDS ORDERED: Central Total Parenteral Nutrition Bag SCH (07:45)
[2018-09-30] MEDS: Levothyroxine 100 MCG Tab PO SCH (07:56)
[2018-09-30] MEDS: Aspirin 81 MG Tab.EC PO SCH (08:05)
[2018-09-30] MEDS ORDERED: Furosemide 40 MG/4 ML VIAL IVPUSH ONE (08:10)
[2018-09-30] MEDS: Loperamide 2 MG Cap PO SCH ×3 (09:34→22:06)
[2018-09-30] MEDS: Acetaminophen 325 MG Tab PO PRN (09:48)
[2018-09-30] MEDS: Potassium Phosphates 15 MMOLE in Sodium Chloride 0.9% 100 ML IV SCH ×3 (09:50→14:32)
--- NOTE | 2018-09-30 10:02 | PN ---
DATE OF SERVICE: 09/30/2018 SUBJECTIVE: Cucas TPN has been running without difficulty. He did have an episode of shortness of breath around 11:00 p.m., he was given a nebulizer treatment and 40 mg of Lasix. His symptoms did resolve. Potassium this morning was 3.4, bilirubin is 1.5. Intake 970, he had 4 bowel movements. Urine output 3775. Shun reports he feels "tired" and denies any other associated signs and symptoms. No new symptoms. OBJECTIVE: GENERAL: Shun Griffith is a 58-year-old male, color pale, and continues to appear weak. VITAL SIGNS: TPR is 97.5, 97, 16, blood pressure 134/79, O2 by pulse oximetry is 100% on 1.5 O2. HEENT: Negative. NECK: Supple. HEART: Regular rate and rhythm. LUNGS: Remain to have rales in the right middle and lower lobes. ABDOMEN: Negative. EXTREMITIES: There is very minimal peripheral edema. ASSESSMENT: Hypothyroidism, dehydration, malnutrition requiring TPN therapy, hypotension, bradycardia, SP duodenal switch, unspecified surgical malabsorption, chronic diarrhea, and vitamin B deficiency. PLAN: 1. Rx K-Phos 45 millimoles IV today with minimal IV fluids. 2. Lasix 40 mg IV one time now. 3. Lasix 20 mg p.o. b.i.d. to start tomorrow, 10/01/2018. 4. Continue TPN, same content, but decrease rate to 60 mL/h. 5. Imodium 2 mg every 6 hours p.r.n. diarrhea. 6. Good pulmonary toilet. 7. We will evaluate p.r.n. or in a.m. Kelly Parham PA-C /[id number]
[2018-09-30] MEDS: Pantoprazole 40 MG Tab.CR PO SCH (10:39)
[2018-10-01] MEDS: Magnesium Sulfate/Water 2 GM in Premix Bag 1 BAG IV SCH (03:28)
[2018-10-01] MEDS: Loperamide 2 MG Cap PO SCH ×4 (06:22→22:01)
[2018-10-01] MEDS: Albuterol/Ipratropium 3.0-0.5 MG/3 ML Neb Soln NEB SCH ×4 (07:15→20:38)
[2018-10-01] MEDS: Levothyroxine 100 MCG Tab PO SCH (07:39)
[2018-10-01] MEDS: Pantoprazole 40 MG Tab.CR PO SCH (07:39)
[2018-10-01] MEDS: Furosemide 20 MG Tab PO SCH ×2 (07:39→14:04)
[2018-10-01] MEDS: Aspirin 81 MG Tab.EC PO SCH (09:36)
[2018-10-01] MEDS ORDERED: Furosemide 20 MG/2 ML VIAL IV ONE (10:00)
[2018-10-01] MEDS: 1: AA 5%/Calcium/D15W/Lytes 1,000 ML with MVI, Adult with Vitamin K 10 ML, Chromium/Copp IV SCH ×3 (13:24)
[2018-10-01] MEDS: Dextrose 5%-0.45% NaCl 1,000 ML IV SCH (15:04)
[2018-10-01] MEDS: Albuterol/Ipratropium 3.0-0.5 MG/3 ML Neb Soln NEB PRN (17:31)
[2018-10-01] MEDS ORDERED: Fat Emulsion 250 ML IV ONE (18:00)
[2018-10-01] MEDS ORDERED: Furosemide 20 MG/2 ML VIAL IVPUSH ONE (18:27)
[2018-10-01] MEDS ORDERED: Furosemide 40 MG/4 ML VIAL IVPUSH ONE (21:44)
--- NOTE | 2018-10-01 21:50 | PCM.PN ---
- General Info Date of Service: 10/01/18 Subjective Update: I was asked to see can this evening by Dr. Nicolas regarding progressive hypoxia and shortness of breath. This morning he was requiring 1.5 L of supplemental oxygen but as the day went on his supplemental oxygen requirement has increased to the point that he's in the upper 80s even on 5 L via nasal cannula. He feels mildly short of breath. He has not been doing much coughing except after nebulizer treatments. No complaints of chest pain. He has not had any fevers. Up until today he had been feeling like he is making good progress. Strength and appetite have been improving. Albumin is up to 2.6. Functional Status: Reports: Pain Controlled, Tolerating Diet - Review of Systems General: Reports: Weakness Pulmonary: Reports: Shortness of Breath - Patient Data Vitals - Most Recent: Last Vital Signs Temp 35.3 C 10/01/18 20:07 Pulse 84 10/01/18 20:07 Resp 16 10/01/18 20:07 BP 119/70 10/01/18 20:07 Pulse Ox 84 L 10/01/18 20:07 Weight - Most Recent: 55.157 kg I&O - Last 24 Hours: Intake & Output 10/01/18 10/01/18 10/01/18 06:59 14:59 22:59 Intake Total 1442 1388 1093 Output Total 550 350 200 Balance 892 1038 893 Lab Results Last 24 Hours: Laboratory Results - last 24 hr 10/01/18 10/01/18 Range/Units 04:00 04:00 WBC 4.3 L (4.5-11.0) K/uL RBC 2.99 L (4.30-5.90) M/uL Hgb 9.4 L (12.0-15.0) g/dL Hct 28.1 L (40.0-54.0) % MCV 94 (80-98) fL MCH 31 (27-31) pg MCHC 34 (32-36) % Plt Count 39 L (150-400) K/uL Sodium 144 (140-148) mmol/L Potassium 3.7 (3.6-5.2) mmol/L Chloride 105 (100-108) mmol/L Carbon Dioxide 34 H (21-32) mmol/L Anion Gap 8.7 (5.0-14.0) mmol/L BUN 26 H (7-18) mg/dL Creatinine 0.8 (0.8-1.3) mg/dL Est Cr Clr Drug Dosing 78.13 mL/min Estimated GFR (MDRD) > 60 (>60) Glucose 135 H (74-106) mg/dL Calcium 8.5 (8.5-10.1) mg/dL Phosphorus 4.3 (2.5-4.9) mg/dL Magnesium 3.3 H (1.8-2.4) mg/dL Total Bilirubin 1.4 H (0.2-1.0) mg/dL AST 60 H (15-37) U/L ALT 36 (12-78) U/L Alkaline Phosphatase 90 (46-116) U/L NT-Pro-B Natriuret Pep 700 H (5-125) pg/mL Total Protein 4.6 L (6.4-8.2) g/dL Albumin 2.6 L (3.4-5.0) g/dL Globulin 2.0 L (2.3-3.5) g/dL Albumin/Globulin Ratio 1.3 (1.2-2.2) Med Orders - Current: Current Medications Acetaminophen (Tylenol) 650 mg PO Q4H PRN PRN Reason: ANALGESIA/FEVER Last Admin: 09/30/18 09:48 Dose: 650 mg Acetaminophen (Tylenol) 650 mg RECTAL Q4H PRN PRN Reason: ANALGESIA/FEVER Albuterol/Ipratropium (Duoneb 3.0-0.5 Mg/3 Ml) 3 ml NEB Q2H PRN PRN Reason: shortness of breath Last Admin: 10/01/18 17:31 Dose: 3 ml Albuterol/Ipratropium (Duoneb 3.0-0.5 Mg/3 Ml) 3 ml NEB QIDRT [facility] Last Admin: 10/01/18 20:38 Dose: 3 ml Aspirin (Halfprin) 81 mg PO DAILY [facility] Last Admin: 10/01/18 09:36 Dose: 81 mg Benzocaine/Menthol (Cepacol Sore Throat) 1 lozenge MUCMEM 6XDAY PRN PRN Reason: Sore Throat Last Admin: 09/27/18 15:32 Dose: 1 john Furosemide (Lasix) 20 mg PO BIDDIURETIC [facility] Last Admin: 10/01/18 14:04 Dose: 20 mg Furosemide (Lasix) 40 mg IVPUSH ONETIME ONE Stop: 10/01/18 21:45 Heparin Sodium (Porcine) (Heparin Lock Flush 100 Units/Ml) 250 units 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 Last Admin: 10/01/18 13:24 Dose: 250 units Dextrose/Sodium Chloride (Dextrose 5%-1/2 Ns) 1,000 mls @ 0 mls/hr IV ASDIRECTED [facility] Last Admin: 10/01/18 15:04 Dose: 25 mls/hr Multivitamins/Minerals 10 ml/Chromium/Copper/Manganese/Seleni/Zn 1 ml/ Amino Ac/ Electrol/Dextrose/Calcium 1,011 mls @ 60 mls/hr IV .BY DURATION [facility] Last Admin: 09/30/18 19:31 Dose: 60 mls/hr Amino Ac/Electrol/Dextrose/Calcium (Clinimix E 5/15) 1,000 mls @ 60 mls/hr IV .BY DURATION [facility] Last Admin: 10/01/18 13:24 Dose: 60 mls/hr Albumin Human (Albumin 25%) 25 gm in 100 mls @ 25 mls/hr IV Q24H [facility] Stop: 10/03/18 15:59 Last Admin: 10/01/18 12:18 Dose: 25 mls/hr Albumin Human (Albumin 25%) 25 gm in 100 mls @ 25 mls/hr IV Q24H [facility] Stop: 10/03/18 19:59 Last Admin: 10/01/18 16:38 Dose: 25 mls/hr Fat Emulsion Intravenous (Intralipid 20%) 250 mls @ 21 mls/hr IV ONETIME ONE Stop: 10/02/18 05:54 Last Admin: 10/01/18 17:31 Dose: 21 mls/hr Fat Emulsion Intravenous (Intralipid 20%) 250 mls @ 21 mls/hr IV Q24H [facility] Levothyroxine Sodium (Synthroid) 100 mcg PO ACBREAKFAST [facility] Last Admin: 10/01/18 07:39 Dose: 100 mcg Loperamide HCl (Imodium) 2 mg PO QID [facility] Last Admin: 10/01/18 15:04 Dose: 2 mg Pantoprazole Sodium (Protonix) 40 mg PO ACBREAKFAST [facility] Last Admin: 10/01/18 07:39 Dose: 40 mg Sodium Chloride (Saline Flush) 5 ml IV 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 Tramadol HCl (Ultram) 50 mg PO Q4H PRN PRN Reason: Pain Last Admin: 09/27/18 15:17 Dose: 50 mg Discontinued Medications Albuterol/Ipratropium (Duoneb 3.0-0.5 Mg/3 Ml) 3 ml NEB Q6H [facility] Last Admin: 09/29/18 19:53 Dose: 3 ml Bupivacaine HCl (Marcaine 0.5%) Confirm Administered Dose 50 ml .ROUTE .STK-MED ONE Stop: 09/27/18 07:25 Last Admin: 09/27/18 09:39 Dose: 7 ml Fentanyl (Sublimaze) Confirm Administered Dose 100 mcg .ROUTE .STK-MED ONE Stop: 09/27/18 07:07 Furosemide (Lasix) 20 mg PO BIDDIURETIC [facility] Last Admin: 09/27/18 15:03 Dose: Not Given Furosemide (Lasix) 20 mg IV ONETIME ONE Stop: 09/27/18 16:01 Last Admin: 09/27/18 15:08 Dose: 20 mg Furosemide (Lasix) 40 mg IVPUSH ONETIME ONE Stop: 09/29/18 22:46 Last Admin: 09/29/18 23:04 Dose: 40 mg Furosemide (Lasix) 40 mg IVPUSH ONETIME ONE Stop: 09/30/18 08:11 Last Admin: 09/30/18 08:03 Dose: 40 mg Furosemide (Lasix) 20 mg IV ONETIME ONE Stop: 10/01/18 10:01 Last Admin: 10/01/18 09:36 Dose: 20 mg Furosemide (Lasix) 20 mg IVPUSH ONETIME ONE Stop: 10/01/18 18:28 Last Admin: 10/01/18 18:34 Dose: 20 mg Heparin Sodium (Porcine) (Heparin Lock Flush 100 Units/Ml) Confirm Administered Dose 1,500 units .ROUTE .STK-MED ONE Stop: 09/27/18 07:26 Last Admin: 09/27/18 09:39 Dose: 1,500 units Dextrose/Lactated Ringer's (Dextrose 5%-Lactated Ringers) 1,000 mls @ 100 mls/ hr IV ASDIRECTED [facility] Stop: 09/26/18 20:59 Last Admin: 09/26/18 12:03 Dose: 100 mls/hr Albumin Human (Albumin 25%) 25 gm in 100 mls @ 25 mls/hr IV ONETIME ONE Stop: 09/26/18 20:59 Last Admin: 09/26/18 16:54 Dose: 25 mls/hr Multivitamins/Minerals 10 ml/Chromium/Copper/Manganese/Zinc 1 ml/ Thiamine HCl 100 mg/Dextrose/Lactated Ringer's 1,012 mls @ 100 mls/hr IV .Q10H8M [facility] Stop: 09/27/18 13:59 Last Admin: 09/27/18 11:43 Dose: 100 mls/hr Levofloxacin/Dextrose 500 mg/ (Premix) 100 mls @ 100 mls/hr IV ONETIME ONE Stop: 09/27/18 09:29 Last Admin: 09/27/18 20:47 Dose: Not Given Clindamycin Phosphate 900 mg/ (Sodium Chloride) 106 mls @ 212 mls/hr IV ONETIME ONE Stop: 09/27/18 09:59 Last Admin: 09/27/18 20:47 Dose: Not Given Lactated Ringer's (Ringers, Lactated) Confirm Administered Dose 1,000 mls @ as directed .ROUTE .STK-MED ONE Stop: 09/27/18 09:48 Albumin Human (Albumin 25%) 25 gm in 100 mls @ 25 mls/hr IV Q24H [facility] Stop: 09/30/18 15:59 Last Admin: 09/30/18 12:10 Dose: 25 mls/hr Multivitamins/Minerals 10 ml/Chromium/Copper/Manganese/Seleni/Zn 1 ml/ Amino Ac/ Electrol/Dextrose/Calcium 1,011 mls @ 80 mls/hr IV .BY DURATION [facility] Stop: 09/28/18 14:59 Last Admin: 09/27/18 14:31 Dose: 80 mls/hr Amino Ac/Electrol/Dextrose/Calcium (Clinimix E 01/11) 1,000 mls @ 80 mls/hr IV .BY DURATION [facility] Stop: 09/28/18 14:59 Last Admin: 09/28/18 03:13 Dose: 80 mls/hr Fat Emulsion Intravenous (Intralipid 20%) 100 mls @ 8.3 mls/hr IV ONETIME ONE Stop: 09/28/18 04:02 Last Admin: 09/27/18 16:30 Dose: 8.3 mls/hr Sodium Chloride (Normal Saline) 1,000 mls @ 0 mls/hr IV ASDIRECTED [facility] Stop: 09/28/18 11:59 Last Admin: 09/27/18 16:36 Dose: 25 mls/hr Acetaminophen 1,000 mg/ Premix 100 mls @ 400 mls/hr IV NOW ONE Stop: 09/27/18 13:14 Last Admin: 09/27/18 12:56 Dose: 400 mls/hr Levofloxacin/Dextrose 500 mg/ (Premix) 100 mls @ 100 mls/hr IV Q24H [facility] Last Admin: 09/28/18 07:28 Dose: 100 mls/hr Clindamycin Phosphate 900 mg/ (Sodium Chloride) 106 mls @ 212 mls/hr IV Q12H [facility] Last Admin: 09/28/18 21:42 Dose: 212 mls/hr Magnesium Sulfate 2 gm/ Premix 50 mls @ 25 mls/hr IV Q6H [facility] Stop: 10/01/18 05:59 Last Admin: 10/01/18 03:28 Dose: 25 mls/hr Albumin Human (Albumin 25%) 25 gm in 100 mls @ 25 mls/hr IV Q24H [facility] Stop: 09/30/18 19:59 Last Admin: 09/30/18 16:39 Dose: 25 mls/hr Multivitamins/Minerals 10 ml/Chromium/Copper/Manganese/Seleni/Zn 1 ml/ Amino Ac/ Electrol/Dextrose/Calcium 1,011 mls @ 80 mls/hr IV .BY DURATION [facility] Stop: 09/30/18 17:15 Last Admin: 09/29/18 16:05 Dose: 80 mls/hr Amino Ac/Electrol/Dextrose/Calcium (Clinimix E 01/11) 1,000 mls @ 80 mls/hr IV .BY DURATION [facility] Stop: 09/30/18 17:15 Last Admin: 09/30/18 05:54 Dose: 80 mls/hr Fat Emulsion Intravenous (Intralipid 20%) 100 mls @ 9 mls/hr IV ONETIME ONE Stop: 09/29/18 05:06 Last Admin: 09/28/18 17:39 Dose: 9 mls/hr Potassium Phosphate 15 mmole/ (Sodium Chloride) 105 mls @ 50 mls/hr IV Q2H [facility] Stop: 09/30/18 15:59 Last Admin: 09/30/18 14:32 Dose: 50 mls/hr Lidocaine/Epinephrine (Xylocaine 1% With Epinephrine 1:100,000) Confirm Administered Dose 50 ml .ROUTE .STK-MED ONE Stop: 09/27/18 07:26 Last Admin: 09/27/18 09:40 Dose: 7 ml Midazolam HCl (Versed 1 Mg/Ml) Confirm Administered Dose 2 mg .ROUTE .STK-MED ONE Stop: 09/27/18 07:08 Non-Formulary Medication (Total Parenteral Nutrition, Central) 1,000 ml .XX .Continue Order [facility] Stop: 09/29/18 12:00 Non-Formulary Medication (Total Parenteral Nutrition, Central) 1,000 ml .XX .Continue Order [facility] Stop: 09/30/18 09:00 Pantoprazole Sodium (Protonix Iv) 40 mg IV Q24H [facility] Last Admin: 09/29/18 14:31 Dose: 40 mg Polyethylene Glycol (Miralax) 238 gm PO ONETIME ONE Stop: 09/26/18 17:01 Last Admin: 09/26/18 16:54 Dose: 238 gram Propofol (Diprivan 20 Ml) Confirm Administered Dose 200 mg .ROUTE .STK-MED ONE Stop: 09/27/18 07:07 Propofol (Diprivan 20 Ml) Confirm Administered Dose 200 mg .ROUTE .[facility]-MED ONE Stop: 09/27/18 09:05 - Exam Quality Assessment: Supplemental Oxygen General: Alert, Oriented, Cooperative, Mild Distress Neck: Supple, JVD (to the angle of the jaw at 45) Lungs: Crackles (diffuse especially mid lung zones posteriorly and upper lung zones anteriorly). No: Normal Respiratory Effort (increased work of breathing) , Wheezing Cardiovascular: Regular Rate, Regular Rhythm GI/Abdominal Exam: Soft, No Distention Extremities: Pedal Edema (pitting edema to just above the ankle bilaterally as well as mild dependent edema of both legs in the posterior thigh area). No: Increased Warmth Skin: Warm, Dry Psy/Mental Status: Alert, Normal Affect - Problem List & Annotations (1) Acquired hypothyroidism SNOMED Code(s): 576191107 Code(s): E03.9 - HYPOTHYROIDISM, UNSPECIFIED Status: Acute Current Visit : Yes - Problem List Review Problem List Initiated/Reviewed/Updated: Yes - My Orders Last 24 Hours: My Active Orders 10/01/18 21:04 Chest 2V [CR] Stat 10/01/18 21:44 Furosemide [Lasix] 40 mg IVPUSH ONETIME ONE 10/01/18 21:45 Insert Gibbons Catheter [Insert Urinary Catheter] [OM.PC] Q24H Urinary Catheter Assessment [RC] ASDIRECTED 10/02/18 05:00 Furosemide [Lasix] 40 mg IVPUSH ONETIME ONE - Plan Plan:: ASSESSMENT AND PLAN - Acute respiratory failure with hypoxia - symptoms include shortness of breath. Patient is currently requiring 5 L of supplemental oxygen. Chest x-ray suggested pulmonary edema with diffuse bilateral interstitial infiltrates. I suspect that with his medical improvement and improving albumin is vascular spaces reclaiming of fluid from the tissue space leading to congestion in the lungs. He has not had any fevers and he is not coughing so I don't believe this is pneumonia. -insert Gibbons catheter -Furosemide 40 mg now and again in 7 hours -minimize fluid intake beyond TPN Kentrell Merino MD
[2018-10-01] MEDS ORDERED: Lidocaine 2% Jelly 10 ML Urojet MUCMEM ONE (21:55)
[2018-10-01] MEDS: Acetaminophen 325 MG Tab PO PRN (22:01)
[2018-10-02] MEDS ORDERED: Morphine 4 MG/ML Syringe IVPUSH PRN (03:08)
[2018-10-02] MEDS ORDERED: Albuterol 0.083% 2.5 MG/3 ML Neb Soln NEB PRN (03:09)
[2018-10-02] MEDS: Sodium Chloride 0.9% 10 ML Syringe IV PRN ×2 (03:12→18:57)
--- NOTE | 2018-10-02 03:14 | PCM.SN ---
- Free Text/Narrative Note: 10/02 309 Since 10:00 last night when can was started on furosemide to help manage suspect pulmonary edema he has had a decline. Oxygen saturations have decreased in supplemental oxygen requirements have increased over the past few hours. He has experienced increased work of breathing. Arterial blood gases were obtained and showed significant hypoxia. He is being transferred to the intensive care unit and will be started on noninvasive ventilation. He remains alert and interactive despite the hypoxia. Once noninvasive ventilation is initiated we will reassess the situation and decide if intubation is necessary or not. 10/02 329 Sats now in the mid-90's with NIPPV. Pt resting comfortably. K+ low at 2.6. Potassium ordered. Next furosemide dose planned for 0500. Kentrell Merino MD
[2018-10-02] MEDS ORDERED: Potassium Chloride 20 MEQ, Lidocaine 1% 2 ML in Sodium Chloride 0.9% 100 ML IV SCH (03:30)
[2018-10-02] MEDS ORDERED: Potassium Chloride Riders 40 MEQ in Premix Bag 1 BAG IV ONE (03:31)
[2018-10-02] MEDS ORDERED: Potassium Chloride Riders 100 ML ONE (03:49)
[2018-10-02] MEDS ORDERED: Furosemide 40 MG/4 ML VIAL IVPUSH ONE (05:00)
[2018-10-02] MEDS: Loperamide 2 MG Cap PO SCH (05:13)
[2018-10-02] MEDS: 1: AA 5%/Calcium/D15W/Lytes 1,000 ML with MVI, Adult with Vitamin K 10 ML, Chromium/Copp IV SCH ×9 (06:34→22:48)
[2018-10-02] MEDS: Albuterol/Ipratropium 3.0-0.5 MG/3 ML Neb Soln NEB SCH ×4 (07:08→20:47)
[2018-10-02] MEDS: Levothyroxine 100 MCG Tab PO SCH (08:08)
[2018-10-02] MEDS: Pantoprazole 40 MG Tab.CR PO SCH (09:09)
[2018-10-02] MEDS: Aspirin 81 MG Tab.EC PO SCH (09:09)
--- NOTE | 2018-10-02 09:30 | PCM.CONSN ---
- General Info Date of Service: 10/02/18 Subjective Update: Galen was transferred to the intensive care unit last night and started on noninvasive ventilation after he had significant hypoxic respiratory failure that did not respond to nasal cannula or facemask. Oxygen saturations have been good with the noninvasive ventilation. Blood gases did not show any evidence for CO2 retention. Good response to diuresis but unfortunately we still are neutral with fluid balance because of significant IV fluid administration. He feels less short of breath today. Edema is a little better today. No complaints of chest pain or abdominal pain. Functional Status: Reports: Pain Controlled, Tolerating Diet - Review of Systems General: Reports: Weakness Pulmonary: Reports: Shortness of Breath - Patient Data Vitals - Most Recent: Last Vital Signs Temp 36.3 C 10/02/18 07:00 Pulse 89 10/02/18 07:08 Resp 25 H 10/02/18 07:00 BP 149/79 H 10/02/18 07:00 Pulse Ox 94 L 10/02/18 07:00 Weight - Most Recent: 52.345 kg I&O - Last 24 Hours: Intake & Output 10/01/18 10/02/18 10/02/18 22:59 06:59 14:59 Intake Total 1093 1451 Output Total 950 2150 Balance 143 -699 Lab Results Last 24 Hours: Laboratory Results - last 24 hr 10/02/18 10/02/18 10/02/18 Range/Units 02:30 02:40 02:40 WBC 4.9 (4.5-11.0) K/uL RBC 2.68 L (4.30-5.90) M/uL Hgb 8.6 L (12.0-15.0) g/dL Hct 25.4 L (40.0-54.0) % MCV 95 (80-98) fL MCH 32 H (27-31) pg MCHC 34 (32-36) % Plt Count 38 L (150-400) K/uL Puncture Site R brachial ABG pH 7.498 H (7.350-7.450) ABG pCO2 38.0 (35.0-42.0) mmHg ABG pO2 34.5 L* (75.0-100.0) mmHg ABG HCO3 29.3 H (22.0-26.0) mmol/L ABG Total CO2 27.4 H (23.0-27.0) mmol/L ABG O2 Saturation 61.5 L (95.0-98.0) % ABG O2 Content 7.3 L (15.0-23.0) %vol ABG Base Excess 5.9 mm/L ABG Hemoglobin 8.7 L (13.5-18.0) g/dL ABG Oxyhemoglobin 59.2 % ABG Carboxyhemoglobin 0.6 (0.0-1.6) % ABG Methemoglobin 3.2 % O2 Delivery Device Simple mask Oxygen Flow Rate 8 L Sodium 142 (140-148) mmol/L Potassium 2.6 L* (3.6-5.2) mmol/L Chloride 103 (100-108) mmol/L Carbon Dioxide 30 (21-32) mmol/L Anion Gap 11.6 (5.0-14.0) mmol/L BUN 30 H (7-18) mg/dL Creatinine 0.9 (0.8-1.3) mg/dL Est Cr Clr Drug Dosing 69.80 mL/min Estimated GFR (MDRD) > 60 (>60) Glucose 187 H (74-106) mg/dL Calcium 8.6 (8.5-10.1) mg/dL Phosphorus 4.0 (2.5-4.9) mg/dL Magnesium 2.4 (1.8-2.4) mg/dL Total Bilirubin 1.5 H (0.2-1.0) mg/dL AST 72 H (15-37) U/L ALT 37 (12-78) U/L Alkaline Phosphatase 84 (46-116) U/L NT-Pro-B Natriuret Pep 806 H (5-125) pg/mL Total Protein 4.9 L (6.4-8.2) g/dL Albumin 2.9 L (3.4-5.0) g/dL Globulin 2.0 L (2.3-3.5) g/dL Albumin/Globulin Ratio 1.5 (1.2-2.2) Blood Type Gel Antibody Screen Crossmatch 10/02/18 Range/Units 02:40 WBC (4.5-11.0) K/uL RBC (4.30-5.90) M/uL Hgb (12.0-15.0) g/dL Hct (40.0-54.0) % MCV (80-98) fL MCH (27-31) pg MCHC (32-36) % Plt Count (150-400) K/uL Puncture Site ABG pH (7.350-7.450) ABG pCO2 (35.0-42.0) mmHg ABG pO2 (75.0-100.0) mmHg ABG HCO3 (22.0-26.0) mmol/L ABG Total CO2 (23.0-27.0) mmol/L ABG O2 Saturation (95.0-98.0) % ABG O2 Content (15.0-23.0) %vol ABG Base Excess mm/L ABG Hemoglobin (13.5-18.0) g/dL ABG Oxyhemoglobin % ABG Carboxyhemoglobin (0.0-1.6) % ABG Methemoglobin % O2 Delivery Device Oxygen Flow Rate L Sodium (140-148) mmol/L Potassium (3.6-5.2) mmol/L Chloride (100-108) mmol/L Carbon Dioxide (21-32) mmol/L Anion Gap (5.0-14.0) mmol/L BUN (7-18) mg/dL Creatinine (0.8-1.3) mg/dL Est Cr Clr Drug Dosing mL/min Estimated GFR (MDRD) (>60) Glucose (74-106) mg/dL Calcium (8.5-10.1) mg/dL Phosphorus (2.5-4.9) mg/dL Magnesium (1.8-2.4) mg/dL Total Bilirubin (0.2-1.0) mg/dL AST (15-37) U/L ALT (12-78) U/L Alkaline Phosphatase (46-116) U/L NT-Pro-B Natriuret Pep (5-125) pg/mL Total Protein (6.4-8.2) g/dL Albumin (3.4-5.0) g/dL Globulin (2.3-3.5) g/dL Albumin/Globulin Ratio (1.2-2.2) Blood Type O POSITIVE Gel Antibody Screen Negative Crossmatch See Detail Med Orders - Current: Current Medications Acetaminophen (Tylenol) 650 mg PO Q4H PRN PRN Reason: ANALGESIA/FEVER Last Admin: 10/01/18 22:01 Dose: 650 mg Acetaminophen (Tylenol) 650 mg RECTAL Q4H PRN PRN Reason: ANALGESIA/FEVER Albuterol (Proventil Neb Soln) 2.5 mg NEB Q2H PRN PRN Reason: Shortness of Breath Albuterol/Ipratropium (Duoneb 3.0-0.5 Mg/3 Ml) 3 ml NEB QIDRT [facility] Last Admin: 10/02/18 07:08 Dose: 3 ml Aspirin (Halfprin) 81 mg PO DAILY [facility] Last Admin: 10/02/18 09:09 Dose: 81 mg Benzocaine/Menthol (Cepacol Sore Throat) 1 lozenge MUCMEM 6XDAY PRN PRN Reason: Sore Throat Last Admin: 09/27/18 15:32 Dose: 1 john Furosemide 20 mg/ Furosemide (40 mg) 60 mg IV Q8H [facility] Heparin Sodium (Porcine) (Heparin Lock Flush 100 Units/Ml) 250 units 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 Last Admin: 10/02/18 03:12 Dose: 250 units Multivitamins/Minerals 10 ml/Chromium/Copper/Manganese/Seleni/Zn 1 ml/ Amino Ac/ Electrol/Dextrose/Calcium 1,011 mls @ 60 mls/hr IV .BY DURATION [facility] Last Admin: 10/02/18 06:42 Dose: 60 mls/hr Amino Ac/Electrol/Dextrose/Calcium (Clinimix E 5/15) 1,000 mls @ 60 mls/hr IV .BY DURATION [facility] Last Admin: 10/01/18 13:24 Dose: 60 mls/hr Potassium Phosphate 22.5 mmole (/ Sodium Chloride) 107.5 mls @ 26 mls/hr IV Q4H [facility] Stop: 10/02/18 18:29 Levothyroxine Sodium (Synthroid) 100 mcg PO ACBREAKFAST [facility] Last Admin: 10/02/18 08:08 Dose: 100 mcg Loperamide HCl (Imodium) 2 mg PO QID PRN PRN Reason: DIARRHEA Lorazepam (Ativan) 0.5 mg IVPUSH Q4H PRN PRN Reason: Anxiety Morphine Sulfate (Morphine) 4 mg IVPUSH Q2H PRN PRN Reason: air hunger/chest tightness Pantoprazole Sodium (Protonix) 40 mg PO ACBREAKFAST ELYSE Last Admin: 10/02/18 09:09 Dose: 40 mg Sodium Chloride (Saline Flush) 5 ml IV 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 Last Admin: 10/02/18 03:12 Dose: 5 ml Tramadol HCl (Ultram) 50 mg PO Q4H PRN PRN Reason: Pain Last Admin: 09/27/18 15:17 Dose: 50 mg Discontinued Medications Albuterol/Ipratropium (Duoneb 3.0-0.5 Mg/3 Ml) 3 ml NEB Q6H ELYSE Last Admin: 09/29/18 19:53 Dose: 3 ml Albuterol/Ipratropium (Duoneb 3.0-0.5 Mg/3 Ml) 3 ml NEB Q2H PRN PRN Reason: shortness of breath Last Admin: 10/01/18 17:31 Dose: 3 ml Bupivacaine HCl (Marcaine 0.5%) Confirm Administered Dose 50 ml .ROUTE .STK-MED ONE Stop: 09/27/18 07:25 Last Admin: 09/27/18 09:39 Dose: 7 ml Fentanyl (Sublimaze) Confirm Administered Dose 100 mcg .ROUTE .STK-MED ONE Stop: 09/27/18 07:07 Furosemide (Lasix) 20 mg PO BIDDIURETIC ELYSE Last Admin: 09/27/18 15:03 Dose: Not Given Furosemide (Lasix) 20 mg IV ONETIME ONE Stop: 09/27/18 16:01 Last Admin: 09/27/18 15:08 Dose: 20 mg Furosemide (Lasix) 40 mg IVPUSH ONETIME ONE Stop: 09/29/18 22:46 Last Admin: 09/29/18 23:04 Dose: 40 mg Furosemide (Lasix) 40 mg IVPUSH ONETIME ONE Stop: 09/30/18 08:11 Last Admin: 09/30/18 08:03 Dose: 40 mg Furosemide (Lasix) 20 mg PO BIDDIURETIC ELYSE Last Admin: 10/01/18 14:04 Dose: 20 mg Furosemide (Lasix) 20 mg IV ONETIME ONE Stop: 10/01/18 10:01 Last Admin: 10/01/18 09:36 Dose: 20 mg Furosemide (Lasix) 20 mg IVPUSH ONETIME ONE Stop: 10/01/18 18:28 Last Admin: 10/01/18 18:34 Dose: 20 mg Furosemide (Lasix) 40 mg IVPUSH ONETIME ONE Stop: 10/01/18 21:45 Last Admin: 10/01/18 22:21 Dose: 40 mg Furosemide (Lasix) 40 mg IVPUSH ONETIME ONE Stop: 10/02/18 05:01 Last Admin: 10/02/18 05:13 Dose: 40 mg Heparin Sodium (Porcine) (Heparin Lock Flush 100 Units/Ml) Confirm Administered Dose 1,500 units .ROUTE .[facility] ONE Stop: 09/27/18 07:26 Last Admin: 09/27/18 09:39 Dose: 1,500 units Dextrose/Lactated Ringer's (Dextrose 5%-Lactated Ringers) 1,000 mls @ 100 mls/ hr IV ASDIRECTED [facility] Stop: 09/26/18 20:59 Last Admin: 09/26/18 12:03 Dose: 100 mls/hr Albumin Human (Albumin 25%) 25 gm in 100 mls @ 25 mls/hr IV ONETIME ONE Stop: 09/26/18 20:59 Last Admin: 09/26/18 16:54 Dose: 25 mls/hr Multivitamins/Minerals 10 ml/Chromium/Copper/Manganese/Zinc 1 ml/ Thiamine HCl 100 mg/Dextrose/Lactated Ringer's 1,012 mls @ 100 mls/hr IV .Q10H8M [facility] Stop: 09/27/18 13:59 Last Admin: 09/27/18 11:43 Dose: 100 mls/hr Levofloxacin/Dextrose 500 mg/ (Premix) 100 mls @ 100 mls/hr IV ONETIME ONE Stop: 09/27/18 09:29 Last Admin: 09/27/18 20:47 Dose: Not Given Clindamycin Phosphate 900 mg/ (Sodium Chloride) 106 mls @ 212 mls/hr IV ONETIME ONE Stop: 09/27/18 09:59 Last Admin: 09/27/18 20:47 Dose: Not Given Lactated Ringer's (Ringers, Lactated) Confirm Administered Dose 1,000 mls @ as directed .ROUTE .STK-MED ONE Stop: 09/27/18 09:48 Albumin Human (Albumin 25%) 25 gm in 100 mls @ 25 mls/hr IV Q24H [facility] Stop: 09/30/18 15:59 Last Admin: 09/30/18 12:10 Dose: 25 mls/hr Multivitamins/Minerals 10 ml/Chromium/Copper/Manganese/Seleni/Zn 1 ml/ Amino Ac/ Electrol/Dextrose/Calcium 1,011 mls @ 80 mls/hr IV .BY DURATION [facility] Stop: 09/28/18 14:59 Last Admin: 09/27/18 14:31 Dose: 80 mls/hr Amino Ac/Electrol/Dextrose/Calcium (Clinimix E 5/15) 1,000 mls @ 80 mls/hr IV .BY DURATION [facility] Stop: 09/28/18 14:59 Last Admin: 09/28/18 03:13 Dose: 80 mls/hr Fat Emulsion Intravenous (Intralipid 20%) 100 mls @ 8.3 mls/hr IV ONETIME ONE Stop: 09/28/18 04:02 Last Admin: 09/27/18 16:30 Dose: 8.3 mls/hr Sodium Chloride (Normal Saline) 1,000 mls @ 0 mls/hr IV ASDIRECTED [facility] Stop: 09/28/18 11:59 Last Admin: 09/27/18 16:36 Dose: 25 mls/hr Acetaminophen 1,000 mg/ Premix 100 mls @ 400 mls/hr IV NOW ONE Stop: 09/27/18 13:14 Last Admin: 09/27/18 12:56 Dose: 400 mls/hr Levofloxacin/Dextrose 500 mg/ (Premix) 100 mls @ 100 mls/hr IV Q24H [facility] Last Admin: 09/28/18 07:28 Dose: 100 mls/hr Clindamycin Phosphate 900 mg/ (Sodium Chloride) 106 mls @ 212 mls/hr IV Q12H [facility] Last Admin: 09/28/18 21:42 Dose: 212 mls/hr Dextrose/Sodium Chloride (Dextrose 5%-1/2 Ns) 1,000 mls @ 0 mls/hr IV ASDIRECTED [facility] Last Admin: 10/01/18 15:04 Dose: 25 mls/hr Magnesium Sulfate 2 gm/ Premix 50 mls @ 25 mls/hr IV Q6H [facility] Stop: 10/01/18 05:59 Last Admin: 10/01/18 03:28 Dose: 25 mls/hr Albumin Human (Albumin 25%) 25 gm in 100 mls @ 25 mls/hr IV Q24H [facility] Stop: 09/30/18 19:59 Last Admin: 09/30/18 16:39 Dose: 25 mls/hr Multivitamins/Minerals 10 ml/Chromium/Copper/Manganese/Seleni/Zn 1 ml/ Amino Ac/ Electrol/Dextrose/Calcium 1,011 mls @ 80 mls/hr IV .BY DURATION [facility] Stop: 09/30/18 17:15 Last Admin: 09/29/18 16:05 Dose: 80 mls/hr Amino Ac/Electrol/Dextrose/Calcium (Clinimix E 01/11) 1,000 mls @ 80 mls/hr IV .BY DURATION [facility] Stop: 09/30/18 17:15 Last Admin: 09/30/18 05:54 Dose: 80 mls/hr Fat Emulsion Intravenous (Intralipid 20%) 100 mls @ 9 mls/hr IV ONETIME ONE Stop: 09/29/18 05:06 Last Admin: 09/28/18 17:39 Dose: 9 mls/hr Potassium Phosphate 15 mmole/ (Sodium Chloride) 105 mls @ 50 mls/hr IV Q2H [facility] Stop: 09/30/18 15:59 Last Admin: 09/30/18 14:32 Dose: 50 mls/hr Albumin Human (Albumin 25%) 25 gm in 100 mls @ 25 mls/hr IV Q24H [facility] Stop: 10/03/18 15:59 Last Admin: 10/01/18 12:18 Dose: 25 mls/hr Albumin Human (Albumin 25%) 25 gm in 100 mls @ 25 mls/hr IV Q24H [facility] Stop: 10/03/18 19:59 Last Admin: 10/01/18 16:38 Dose: 25 mls/hr Fat Emulsion Intravenous (Intralipid 20%) 250 mls @ 21 mls/hr IV ONETIME ONE Stop: 10/02/18 05:54 Last Admin: 10/01/18 17:31 Dose: 21 mls/hr Fat Emulsion Intravenous (Intralipid 20%) 250 mls @ 21 mls/hr IV Q24H [facility] Potassium Chloride 20 meq/Lidocaine HCl 2 ml/ Sodium Chloride 112 mls @ 50 mls/ hr IV Q2H [facility] Stop: 10/02/18 07:29 Last Admin: 10/02/18 06:32 Dose: Not Given Potassium Chloride 40 meq/ (Premix) 100 mls @ 25 mls/hr IV ONETIME ONE Stop: 10/02/18 07:30 Last Admin: 10/02/18 03:50 Dose: 25 mls/hr Potassium Chloride (Kcl 40 Meq In Water 100 Ml) Confirm Administered Dose 100 mls @ as directed .ROUTE .STK-MED ONE Stop: 10/02/18 03:50 Last Admin: 10/02/18 04:03 Dose: Not Given Lidocaine HCl (Xylocaine 2% Jelly) 10 ml MUCMEM ONETIME ONE Stop: 10/01/18 21:56 Last Admin: 10/01/18 22:04 Dose: 10 ml Lidocaine/Epinephrine (Xylocaine 1% With Epinephrine 1:100,000) Confirm Administered Dose 50 ml .ROUTE .STK-MED ONE Stop: 09/27/18 07:26 Last Admin: 09/27/18 09:40 Dose: 7 ml Loperamide HCl (Imodium) 2 mg PO QID [facility] Last Admin: 10/02/18 05:13 Dose: 2 mg Midazolam HCl (Versed 1 Mg/Ml) Confirm Administered Dose 2 mg .ROUTE .STK-MED ONE Stop: 09/27/18 07:08 Non-Formulary Medication (Total Parenteral Nutrition, Central) 1,000 ml .XX .Continue Order [facility] Stop: 09/29/18 12:00 Non-Formulary Medication (Total Parenteral Nutrition, Central) 1,000 ml .XX .Continue Order [facility] Stop: 09/30/18 09:00 Pantoprazole Sodium (Protonix Iv) 40 mg IV Q24H [facility] Last Admin: 09/29/18 14:31 Dose: 40 mg Polyethylene Glycol (Miralax) 238 gm PO ONETIME ONE Stop: 09/26/18 17:01 Last Admin: 09/26/18 16:54 Dose: 238 gram Propofol (Diprivan 20 Ml) Confirm Administered Dose 200 mg .ROUTE .STK-MED ONE Stop: 09/27/18 07:07 Propofol (Diprivan 20 Ml) Confirm Administered Dose 200 mg .ROUTE .[facility] Stop: 09/27/18 09:05 - Exam Quality Assessment: Supplemental Oxygen, Urine Catheter General: Alert, Oriented, Cooperative, No Acute Distress, Other (has NIPPV mask on ) Neck: JVD Lungs: Crackles (diffuse gisselle lower half of lung zones). No: Normal Respiratory Effort (mild increased work of breathing ), Wheezing Cardiovascular: Regular Rate, Regular Rhythm GI/Abdominal Exam: Soft, No Distention Extremities: Pedal Edema (both feet to above the ankle). No: Increased Warmth Skin: Warm, Dry Psy/Mental Status: Alert, Normal Affect Consult PN Assessment/Plan Procedures: Procedures ASSAY ALKALINE PHOSPHATASE (11/20/14) BILIRUBIN TOTAL (11/20/14) BLOOD TYPING SEROLOGIC ABO (09/26/15) BLOOD TYPING SEROLOGIC RH(D) (09/26/15) C DIFF AMPLIFIED PROBE (09/23/18) CHEST X-RAY 2VW FRONTAL&LATL (11/20/14) COMPLETE CBC AUTOMATED (11/20/14) COMPLETE CBC W/AUTO DIFF WBC (09/22/18) COMPREHEN METABOLIC PANEL (09/22/18) EMERGENCY DEPT VISIT (09/22/18) GLUCOSE BLOOD TEST (11/20/14) HYDRATION IV INFUSION INIT (04/15/16) LAP VENT/ABD HERNIA REPAIR (11/20/14) LAPAROSCOPIC CHOLECYSTECTOMY (11/20/14) OVA AND PARASITES SMEARS (09/23/18) POLYSOM ANY AGE 1-3> GISELLA (02/03/16) RBC ANTIBODY SCREEN (09/26/15) ROUTINE VENIPUNCTURE (09/22/18) SMEAR COMPLEX STAIN (09/23/18) THER/PROPH/DIAG IV INF ADDON (04/15/16) THER/PROPH/DIAG IV INF INIT (04/15/16) TTE W/DOPPLER COMPLETE (08/09/18) TX/PRO/DX INJ NEW DRUG ADDON (04/15/16) URINALYSIS AUTO W/SCOPE (09/22/18) (1) Acquired hypothyroidism SNOMED Code(s): 085588118 Code(s): E03.9 - HYPOTHYROIDISM, UNSPECIFIED Current Visit: Yes Problem List Initiated/Reviewed/Updated: Yes My Orders Last 24 Hours: My Active Orders 10/01/18 21:04 Chest 2V [CR] Stat 10/01/18 21:45 Insert Gibbons Catheter [Insert Urinary Catheter] [OM.PC] Q24H Urinary Catheter Assessment [RC] ASDIRECTED 10/02/18 03:00 Transfer Patient (Change bed) [ADT] Routine BIPAP Adult [RT BiPAP/CPAP] [RC] ASDIRECTED 10/02/18 03:08 LORazepam [Ativan] 0.5 mg IVPUSH Q4H PRN Morphine 4 mg IVPUSH Q2H PRN 10/02/18 03:09 Albuterol [Proventil Neb Soln] 2.5 mg NEB Q2H PRN 10/02/18 03:10 RT Aerosol Therapy [RC] ASDIRECTED 10/02/18 03:15 Cardiac Monitoring [RC] Q6H Pulse Oximetry [RC] ASDIRECTED 10/02/18 07:00 Chest wo Cont [CT] Routine 10/02/18 15:00 Furosemide [Lasix] 60 mg IV Q8H 10/02/18 19:00 POTASSIUM,K [CHEM] Timed Plan: ASSESSMENT AND PLAN - Acute respiratory failure with hypoxia - appears to be secondary to volume overload with pulmonary edema. I suspect that his vascular space reclaimed fluids that had leaked into the tissues as his nutritional status and overall status have improved. Good response to diuresis but net neutral fluid balance with significant fluid administration. -Minimize IV fluids -Furosemide 60 mg every 8 hours -Gibbons catheter placed for intake and output monitoring -Daily labs Hypokalemia - significant hypokalemia noted this morning. He is receiving some supplementation and will be receiving additional throughout the day. -Recheck potassium tonight and in the morning -Continue supplementation as ordered Acquired hypothyroidism - TSH is elevated at nearly 40 and T4 is low consistent with hypothyroid state. He has been started on supplementation. 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 Dizziness was acute on chronic and seems to be slowly getting better. -Physical therapy Thrombocytopenia - significant decline in platelets down to around 40,000. No obvious cause at this time but may be dilution from all the IV fluids. Peripheral smear will be collected and sent for pathologist evaluation. No concerning medications on his list. May be contribution from nutritional deficiency as well. -Peripheral smear pending Dehydration and malnutrition - significant weight loss over the past couple of years. He does have a history of a duodenal switch. He has received IV fluids overnight. A Whitney catheter has been placed and he has been receiving TPN. Anemia is likely related to nutritional deficiencies. Diet has been improving steadily. -Additional cares per surgical team Hypotension and bradycardia - resolved. Kentrell Merino M.D.
[2018-10-02] MEDS: Potassium Phosphates 22.5 MMOLE in Sodium Chloride 0.9% 100 ML IV SCH ×2 (10:15→14:34)
[2018-10-02] MEDS: Furosemide 20 MG Tab PO SCH (10:25)
[2018-10-02] MEDS ORDERED: Furosemide 40 MG/4 ML VIAL IVPUSH SCH (15:00)
[2018-10-02] MEDS ORDERED: Fat Emulsion 250 ML IV SCH (18:00)
[2018-10-03] MEDS: 1: AA 5%/Calcium/D15W/Lytes 1,000 ML with MVI, Adult with Vitamin K 10 ML, Chromium/Copp IV SCH ×3 (05:34)
[2018-10-03] MEDS: Albuterol/Ipratropium 3.0-0.5 MG/3 ML Neb Soln NEB SCH ×4 (07:20→20:56)
[2018-10-03] MEDS: Linezolid 600 MG in Premix Bag 1 BAG IV SCH ×2 (08:07→20:56)
[2018-10-03] MEDS ORDERED: Potassium Chloride Riders 40 MEQ in Premix Bag 1 BAG IV ONE (09:00)
[2018-10-03] MEDS: Aspirin 81 MG Tab.EC PO SCH ×2 (09:11→09:21)
[2018-10-03] MEDS: Levothyroxine 100 MCG Tab PO SCH (09:11)
[2018-10-03] MEDS: Pantoprazole 40 MG Tab.CR PO SCH (09:11)
--- NOTE | 2018-10-03 09:17 | PN ---
DATE OF SERVICE: 10/01/2018 The patient has been afebrile with stable vital signs. Oral intake has been around a liter, and he has had 3 bowel movements which have become a little bit more formed. We will continue the TPN today at 60 mL/h to up the amount of fat he is getting as well. Hemoglobin is 9.4 this morning, so we will type and cross and potentially transfuse the patient tomorrow, depending on what his hemoglobin looks like at that time. His BNP is up a little bit today, and we will give him some additional IV Lasix today as well and then continue the albumin 50 grams a day. Getting the albumin level up will be helpful with regard to his absorption of water and nutrients via the small bowel. Manfred Nicolas MD Job #: [id number]
--- NOTE | 2018-10-03 10:21 | PCM.PN ---
- General Info Date of Service: 10/03/18 Subjective Update: Mr. Griffith is a 58-year-old gentleman who was admitted for malnutrition and to initiate TPN. His developed some fluid overload with hypoxia and has been treated with noninvasive positive pressure ventilation over the past few days as well as diuretic therapy. He is diuresed well, and feels less short of breath. Continues to require supplemental oxygen and use of noninvasive positive pressure ventilation. Functional Status: Reports: Pain Controlled - Review of Systems General: Reports: Weakness. Denies: Fever, Chills Pulmonary: Reports: Shortness of Breath. Denies: Pleuritic Chest Pain, Cough, Sputum, Hemoptysis, Wheezing Cardiovascular: Reports: Dyspnea on Exertion. Denies: Chest Pain, Palpitations , Edema Gastrointestinal: Reports: No Symptoms - Patient Data Vitals - Most Recent: Last Vital Signs Temp 97.4 F 10/03/18 07:00 Pulse 78 10/03/18 09:00 Resp 21 H 10/03/18 09:00 BP 145/75 H 10/03/18 09:00 Pulse Ox 95 10/03/18 09:00 Weight - Most Recent: 115 lb 6.4 oz I&O - Last 24 Hours: Intake & Output 10/02/18 10/03/18 10/03/18 22:59 06:59 14:59 Intake Total 607 993 Output Total 1000 2425 Balance -393 -1432 Lab Results Last 24 Hours: Laboratory Results - last 24 hr 10/02/18 10/03/18 10/03/18 Range/Units 18:58 04:19 04:19 WBC 3.8 L (4.5-11.0) K/uL RBC 3.08 L (4.30-5.90) M/uL Hgb 9.5 L (12.0-15.0) g/dL Hct 28.6 L (40.0-54.0) % MCV 93 (80-98) fL MCH 31 (27-31) pg MCHC 33 (32-36) % Plt Count 56 L (150-400) K/uL Puncture Site ABG pH (7.350-7.450) ABG pCO2 (35.0-42.0) mmHg ABG pO2 (75.0-100.0) mmHg ABG HCO3 (22.0-26.0) mmol/L ABG Total CO2 (23.0-27.0) mmol/L ABG O2 Saturation (95.0-98.0) % ABG O2 Content (15.0-23.0) %vol ABG Base Excess mm/L ABG Hemoglobin (13.5-18.0) g/dL ABG Oxyhemoglobin % ABG Carboxyhemoglobin (0.0-1.6) % ABG Methemoglobin % O2 Delivery Device Oxygen Flow Rate L Sodium 143 (140-148) mmol/L Potassium 3.8 3.5 L (3.6-5.2) mmol/L Chloride 102 (100-108) mmol/L Carbon Dioxide 33 H (21-32) mmol/L Anion Gap 11.5 (5.0-14.0) mmol/L BUN 35 H (7-18) mg/dL Creatinine 1.0 (0.8-1.3) mg/dL Est Cr Clr Drug Dosing 59.61 mL/min Estimated GFR (MDRD) > 60 (>60) Glucose 115 H (74-106) mg/dL Calcium 8.4 L (8.5-10.1) mg/dL Phosphorus 4.9 (2.5-4.9) mg/dL Magnesium 1.8 D (1.8-2.4) mg/dL Total Bilirubin 2.0 H (0.2-1.0) mg/dL AST 140 H D (15-37) U/L ALT 57 (12-78) U/L Alkaline Phosphatase 107 (46-116) U/L NT-Pro-B Natriuret Pep 1215 H (5-125) pg/mL Total Protein 5.1 L (6.4-8.2) g/dL Albumin 2.7 L (3.4-5.0) g/dL Globulin 2.4 (2.3-3.5) g/dL Albumin/Globulin Ratio 1.1 L (1.2-2.2) 10/03/18 Range/Units 04:19 WBC (4.5-11.0) K/uL RBC (4.30-5.90) M/uL Hgb (12.0-15.0) g/dL Hct (40.0-54.0) % MCV (80-98) fL MCH (27-31) pg MCHC (32-36) % Plt Count (150-400) K/uL Puncture Site R brachial ABG pH 7.521 H (7.350-7.450) ABG pCO2 39.9 (35.0-42.0) mmHg ABG pO2 98.0 (75.0-100.0) mmHg ABG HCO3 32.4 H (22.0-26.0) mmol/L ABG Total CO2 29.6 H (23.0-27.0) mmol/L ABG O2 Saturation 94.2 L (95.0-98.0) % ABG O2 Content 12.6 L (15.0-23.0) %vol ABG Base Excess 8.9 mm/L ABG Hemoglobin 9.9 L (13.5-18.0) g/dL ABG Oxyhemoglobin 90.1 % ABG Carboxyhemoglobin 0.1 (0.0-1.6) % ABG Methemoglobin 4.2 % O2 Delivery Device Bipap Oxygen Flow Rate L Sodium (140-148) mmol/L Potassium (3.6-5.2) mmol/L Chloride (100-108) mmol/L Carbon Dioxide (21-32) mmol/L Anion Gap (5.0-14.0) mmol/L BUN (7-18) mg/dL Creatinine (0.8-1.3) mg/dL Est Cr Clr Drug Dosing mL/min Estimated GFR (MDRD) (>60) Glucose (74-106) mg/dL Calcium (8.5-10.1) mg/dL Phosphorus (2.5-4.9) mg/dL Magnesium (1.8-2.4) mg/dL Total Bilirubin (0.2-1.0) mg/dL AST (15-37) U/L ALT (12-78) U/L Alkaline Phosphatase (46-116) U/L NT-Pro-B Natriuret Pep (5-125) pg/mL Total Protein (6.4-8.2) g/dL Albumin (3.4-5.0) g/dL Globulin (2.3-3.5) g/dL Albumin/Globulin Ratio (1.2-2.2) [place] Results Last 24 Hours: Microbiology 10/03/18 04:10 Gram Stain - Final Sputum - Expectorated Med Orders - Current: Current Medications Acetaminophen (Tylenol) 650 mg PO Q4H PRN PRN Reason: ANALGESIA/FEVER Last Admin: 10/01/18 22:01 Dose: 650 mg Acetaminophen (Tylenol) 650 mg RECTAL Q4H PRN PRN Reason: ANALGESIA/FEVER Albuterol (Proventil Neb Soln) 2.5 mg NEB Q2H PRN PRN Reason: Shortness of Breath Albuterol/Ipratropium (Duoneb 3.0-0.5 Mg/3 Ml) 3 ml NEB QIDRT [facility] Last Admin: 10/03/18 07:20 Dose: 3 ml Aspirin (Halfprin) 81 mg PO DAILY [facility] Last Admin: 10/03/18 09:21 Dose: Not Given Benzocaine/Menthol (Cepacol Sore Throat) 1 lozenge MUCMEM 6XDAY PRN PRN Reason: Sore Throat Last Admin: 09/27/18 15:32 Dose: 1 john Furosemide 20 mg/ Furosemide (40 mg) 60 mg IV Q8H [facility] Last Admin: 10/03/18 09:11 Dose: 60 mg Heparin Sodium (Porcine) (Heparin Lock Flush 100 Units/Ml) 250 units 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 Last Admin: 10/02/18 14:24 Dose: 250 units Multivitamins/Minerals 10 ml/Chromium/Copper/Manganese/Seleni/Zn 1 ml/ Amino Ac/ Electrol/Dextrose/Calcium 1,011 mls @ 40 mls/hr IV .BY DURATION [facility] Stop: 10/03/18 23:30 Last Admin: 10/03/18 05:34 Dose: 40 mls/hr Amino Ac/Electrol/Dextrose/Calcium (Clinimix E 15) 1,000 mls @ 40 mls/hr IV .BY DURATION [facility] Stop: 10/03/18 23:30 Potassium Chloride 40 meq/ (Premix) 100 mls @ 25 mls/hr IV ONETIME ONE Stop: 10/03/18 12:59 Last Admin: 10/03/18 08:20 Dose: 25 mls/hr Linezolid 600 mg/ Premix 300 mls @ 300 mls/hr IV Q12H [facility] Last Admin: 10/03/18 08:07 Dose: 300 mls/hr Multivitamins/Minerals 10 ml/Chromium/Copper/Manganese/Seleni/Zn 1 ml/ Amino Ac/ Electrol/Dextrose/Calcium 1,011 mls @ 40 mls/hr IV .BY DURATION [facility] Amino Ac/Electrol/Dextrose/Calcium (Clinimix E 01/11) 1,000 mls @ 40 mls/hr IV .BY DURATION [facility] Levothyroxine Sodium (Synthroid) 100 mcg PO ACBREAKFAST [facility] Last Admin: 10/03/18 09:11 Dose: 100 mcg Loperamide HCl (Imodium) 2 mg PO QID PRN PRN Reason: DIARRHEA Lorazepam (Ativan) 0.5 mg IVPUSH Q4H PRN PRN Reason: Anxiety Morphine Sulfate (Morphine) 4 mg IVPUSH Q2H PRN PRN Reason: air hunger/chest tightness Pantoprazole Sodium (Protonix) 40 mg PO ACBREAKFAST [facility] Last Admin: 10/03/18 09:11 Dose: 40 mg Sodium Chloride (Saline Flush) 5 ml IV 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 Last Admin: 10/02/18 18:57 Dose: 5 ml Tramadol HCl (Ultram) 50 mg PO Q4H PRN PRN Reason: Pain Last Admin: 09/27/18 15:17 Dose: 50 mg Discontinued Medications Albuterol/Ipratropium (Duoneb 3.0-0.5 Mg/3 Ml) 3 ml NEB Q6H [facility] Last Admin: 09/29/18 19:53 Dose: 3 ml Albuterol/Ipratropium (Duoneb 3.0-0.5 Mg/3 Ml) 3 ml NEB Q2H PRN PRN Reason: shortness of breath Last Admin: 10/01/18 17:31 Dose: 3 ml Bupivacaine HCl (Marcaine 0.5%) Confirm Administered Dose 50 ml .ROUTE .STK-MED ONE Stop: 09/27/18 07:25 Last Admin: 09/27/18 09:39 Dose: 7 ml Fentanyl (Sublimaze) Confirm Administered Dose 100 mcg .ROUTE .STK-MED ONE Stop: 09/27/18 07:07 Furosemide (Lasix) 20 mg PO BIDDIURETIC [facility] Last Admin: 09/27/18 15:03 Dose: Not Given Furosemide (Lasix) 20 mg IV ONETIME ONE Stop: 09/27/18 16:01 Last Admin: 09/27/18 15:08 Dose: 20 mg Furosemide (Lasix) 40 mg IVPUSH ONETIME ONE Stop: 09/29/18 22:46 Last Admin: 09/29/18 23:04 Dose: 40 mg Furosemide (Lasix) 40 mg IVPUSH ONETIME ONE Stop: 09/30/18 08:11 Last Admin: 09/30/18 08:03 Dose: 40 mg Furosemide (Lasix) 20 mg PO BIDDIURETIC [facility] Last Admin: 10/02/18 10:25 Dose: Not Given Furosemide (Lasix) 20 mg IV ONETIME ONE Stop: 10/01/18 10:01 Last Admin: 10/01/18 09:36 Dose: 20 mg Furosemide (Lasix) 20 mg IVPUSH ONETIME ONE Stop: 10/01/18 18:28 Last Admin: 10/01/18 18:34 Dose: 20 mg Furosemide (Lasix) 40 mg IVPUSH ONETIME ONE Stop: 10/01/18 21:45 Last Admin: 10/01/18 22:21 Dose: 40 mg Furosemide (Lasix) 40 mg IVPUSH ONETIME ONE Stop: 10/02/18 05:01 Last Admin: 10/02/18 05:13 Dose: 40 mg Heparin Sodium (Porcine) (Heparin Lock Flush 100 Units/Ml) Confirm Administered Dose 1,500 units .ROUTE .STK-MED ONE Stop: 09/27/18 07:26 Last Admin: 09/27/18 09:39 Dose: 1,500 units Dextrose/Lactated Ringer's (Dextrose 5%-Lactated Ringers) 1,000 mls @ 100 mls/ hr IV ASDIRECTED [facility] Stop: 09/26/18 20:59 Last Admin: 09/26/18 12:03 Dose: 100 mls/hr Albumin Human (Albumin 25%) 25 gm in 100 mls @ 25 mls/hr IV ONETIME ONE Stop: 09/26/18 20:59 Last Admin: 09/26/18 16:54 Dose: 25 mls/hr Multivitamins/Minerals 10 ml/Chromium/Copper/Manganese/Zinc 1 ml/ Thiamine HCl 100 mg/Dextrose/Lactated Ringer's 1,012 mls @ 100 mls/hr IV .Q10H8M [facility] Stop: 09/27/18 13:59 Last Admin: 09/27/18 11:43 Dose: 100 mls/hr Levofloxacin/Dextrose 500 mg/ (Premix) 100 mls @ 100 mls/hr IV ONETIME ONE Stop: 09/27/18 09:29 Last Admin: 09/27/18 20:47 Dose: Not Given Clindamycin Phosphate 900 mg/ (Sodium Chloride) 106 mls @ 212 mls/hr IV ONETIME ONE Stop: 09/27/18 09:59 Last Admin: 09/27/18 20:47 Dose: Not Given Lactated Ringer's (Ringers, Lactated) Confirm Administered Dose 1,000 mls @ as directed .ROUTE .STK-MED ONE Stop: 09/27/18 09:48 Albumin Human (Albumin 25%) 25 gm in 100 mls @ 25 mls/hr IV Q24H [facility] Stop: 09/30/18 15:59 Last Admin: 09/30/18 12:10 Dose: 25 mls/hr Multivitamins/Minerals 10 ml/Chromium/Copper/Manganese/Seleni/Zn 1 ml/ Amino Ac/ Electrol/Dextrose/Calcium 1,011 mls @ 80 mls/hr IV .BY DURATION [facility] Stop: 09/28/18 14:59 Last Admin: 09/27/18 14:31 Dose: 80 mls/hr Amino Ac/Electrol/Dextrose/Calcium (Clinimix E 5/15) 1,000 mls @ 80 mls/hr IV .BY DURATION [facility] Stop: 09/28/18 14:59 Last Admin: 09/28/18 03:13 Dose: 80 mls/hr Fat Emulsion Intravenous (Intralipid 20%) 100 mls @ 8.3 mls/hr IV ONETIME ONE Stop: 09/28/18 04:02 Last Admin: 09/27/18 16:30 Dose: 8.3 mls/hr Sodium Chloride (Normal Saline) 1,000 mls @ 0 mls/hr IV ASDIRECTED [facility] Stop: 09/28/18 11:59 Last Admin: 09/27/18 16:36 Dose: 25 mls/hr Acetaminophen 1,000 mg/ Premix 100 mls @ 400 mls/hr IV NOW ONE Stop: 09/27/18 13:14 Last Admin: 09/27/18 12:56 Dose: 400 mls/hr Levofloxacin/Dextrose 500 mg/ (Premix) 100 mls @ 100 mls/hr IV Q24H [facility] Last Admin: 09/28/18 07:28 Dose: 100 mls/hr Clindamycin Phosphate 900 mg/ (Sodium Chloride) 106 mls @ 212 mls/hr IV Q12H [facility] Last Admin: 09/28/18 21:42 Dose: 212 mls/hr Dextrose/Sodium Chloride (Dextrose 5%-1/2 Ns) 1,000 mls @ 0 mls/hr IV ASDIRECTED [facility] Last Admin: 10/01/18 15:04 Dose: 25 mls/hr Magnesium Sulfate 2 gm/ Premix 50 mls @ 25 mls/hr IV Q6H [facility] Stop: 10/01/18 05:59 Last Admin: 10/01/18 03:28 Dose: 25 mls/hr Albumin Human (Albumin 25%) 25 gm in 100 mls @ 25 mls/hr IV Q24H [facility] Stop: 09/30/18 19:59 Last Admin: 09/30/18 16:39 Dose: 25 mls/hr Multivitamins/Minerals 10 ml/Chromium/Copper/Manganese/Seleni/Zn 1 ml/ Amino Ac/ Electrol/Dextrose/Calcium 1,011 mls @ 80 mls/hr IV .BY DURATION [facility] Stop: 09/30/18 17:15 Last Admin: 09/29/18 16:05 Dose: 80 mls/hr Amino Ac/Electrol/Dextrose/Calcium (Clinimix E 5/15) 1,000 mls @ 80 mls/hr IV .BY DURATION [facility] Stop: 09/30/18 17:15 Last Admin: 09/30/18 05:54 Dose: 80 mls/hr Fat Emulsion Intravenous (Intralipid 20%) 100 mls @ 9 mls/hr IV ONETIME ONE Stop: 09/29/18 05:06 Last Admin: 09/28/18 17:39 Dose: 9 mls/hr Potassium Phosphate 15 mmole/ (Sodium Chloride) 105 mls @ 50 mls/hr IV Q2H [facility] Stop: 09/30/18 15:59 Last Admin: 09/30/18 14:32 Dose: 50 mls/hr Multivitamins/Minerals 10 ml/Chromium/Copper/Manganese/Seleni/Zn 1 ml/ Amino Ac/ Electrol/Dextrose/Calcium 1,011 mls @ 60 mls/hr IV .BY DURATION [facility] Stop: 10/02/18 20:00 Last Infusion: 10/02/18 09:00 Dose: 40 mls/hr Amino Ac/Electrol/Dextrose/Calcium (Clinimix E 01/11) 1,000 mls @ 60 mls/hr IV .BY DURATION [facility] Stop: 10/02/18 20:00 Last Admin: 10/01/18 13:24 Dose: 60 mls/hr Albumin Human (Albumin 25%) 25 gm in 100 mls @ 25 mls/hr IV Q24H [facility] Stop: 10/03/18 15:59 Last Admin: 10/01/18 12:18 Dose: 25 mls/hr Albumin Human (Albumin 25%) 25 gm in 100 mls @ 25 mls/hr IV Q24H [facility] Stop: 10/03/18 19:59 Last Admin: 10/01/18 16:38 Dose: 25 mls/hr Fat Emulsion Intravenous (Intralipid 20%) 250 mls @ 21 mls/hr IV ONETIME ONE Stop: 10/02/18 05:54 Last Admin: 10/01/18 17:31 Dose: 21 mls/hr Fat Emulsion Intravenous (Intralipid 20%) 250 mls @ 21 mls/hr IV Q24H [facility] Potassium Chloride 20 meq/Lidocaine HCl 2 ml/ Sodium Chloride 112 mls @ 50 mls/ hr IV Q2H [facility] Stop: 10/02/18 07:29 Last Admin: 10/02/18 06:32 Dose: Not Given Potassium Chloride 40 meq/ (Premix) 100 mls @ 25 mls/hr IV ONETIME ONE Stop: 10/02/18 07:30 Last Admin: 10/02/18 03:50 Dose: 25 mls/hr Potassium Chloride (Kcl 40 Meq In Water 100 Ml) Confirm Administered Dose 100 mls @ as directed .ROUTE .STK-MED ONE Stop: 10/02/18 03:50 Last Admin: 10/02/18 04:03 Dose: Not Given Potassium Phosphate 22.5 mmole (/ Sodium Chloride) 107.5 mls @ 26 mls/hr IV Q4H [facility] Stop: 10/02/18 18:29 Last Admin: 10/02/18 14:34 Dose: 26 mls/hr Lidocaine HCl (Xylocaine 2% Jelly) 10 ml MUCMEM ONETIME ONE Stop: 10/01/18 21:56 Last Admin: 10/01/18 22:04 Dose: 10 ml Lidocaine/Epinephrine (Xylocaine 1% With Epinephrine 1:100,000) Confirm Administered Dose 50 ml .ROUTE .STK-MED ONE Stop: 09/27/18 07:26 Last Admin: 09/27/18 09:40 Dose: 7 ml Loperamide HCl (Imodium) 2 mg PO QID [facility] Last Admin: 10/02/18 05:13 Dose: 2 mg Midazolam HCl (Versed 1 Mg/Ml) Confirm Administered Dose 2 mg .ROUTE .STK-MED ONE Stop: 09/27/18 07:08 Non-Formulary Medication (Total Parenteral Nutrition, Central) 1,000 ml .XX .Continue Order [facility] Stop: 09/29/18 12:00 Non-Formulary Medication (Total Parenteral Nutrition, Central) 1,000 ml .XX .Continue Order [facility] Stop: 09/30/18 09:00 Pantoprazole Sodium (Protonix Iv) 40 mg IV Q24H [facility] Last Admin: 09/29/18 14:31 Dose: 40 mg Polyethylene Glycol (Miralax) 238 gm PO ONETIME ONE Stop: 09/26/18 17:01 Last Admin: 09/26/18 16:54 Dose: 238 gram Propofol (Diprivan 20 Ml) Confirm Administered Dose 200 mg .ROUTE .STK-MED ONE Stop: 09/27/18 07:07 Propofol (Diprivan 20 Ml) Confirm Administered Dose 200 mg .ROUTE .K-MED ONE Stop: 09/27/18 09:05 - Exam Quality Assessment: Supplemental Oxygen, Urine Catheter, DVT Prophylaxis General: Alert, Oriented, Cooperative, Mild Distress Lungs: Decreased Breath Sounds, Rales. No: Rhonchi, Wheezing Cardiovascular: Regular Rate, Regular Rhythm, No Murmurs GI/Abdominal Exam: Soft, Non-Tender, No Organomegaly, No Distention Extremities: Non-Tender - Problem List Review Problem List Initiated/Reviewed/Updated: Yes - My Orders Last 24 Hours: My Active Orders 10/03/18 10:13 Echo Comp wo Cont [US] Urgent 10/04/18 05:00 Chest 1V Frontal [CR] Timed - Plan Plan:: ASSESSMENT AND PLAN - Acute respiratory failure with hypoxia - grossly improved since yesterday, subjectively less short of breath but continues to require supplemental oxygen and noninvasive positive pressure ventilation. -Echocardiogram to assess left ventricular function -insert Gibbons catheter -Furosemide 60 mg q8hr -minimize fluid intake beyond TPN
--- NOTE | 2018-10-03 11:26 | OR ---
DATE OF PROCEDURE: 09/27/2018 PREOPERATIVE DIAGNOSES: 1. Anemia. 2. Indication for central venous access. POSTOPERATIVE DIAGNOSES: 1. Anemia associated with. a. Minimal bowel gastritis in prepyloric area. b. Normal colonoscopic examination. 2. Indication for central venous access. OPERATIVE PROCEDURES: 1. Esophagogastroduodenoscopy with antral biopsies for CLOtest (43683). 2. Flexible colonoscopy (39681). 3. Insertion of double-lumen Godfrey catheter via right internal jugular vein approach (66342). ANESTHESIA: Local plus IV sedation. INDICATION FOR PROCEDURE: This 58-year-old male is presenting with fairly profound malnutrition with indications for central venous access to begin administering TPN. He was also noted to be somewhat anemic and is to undergo an upper and lower endoscopy to rule out a GI bleeding source. Potential risks of the procedure including bleeding, infection, aspiration of GI content, pneumohemothorax, or vascular injury with insertion of the Godfrey catheter were all reviewed, and the patient wishes to proceed. DETAILS OF PROCEDURE: The patient was taken to the operating room and placed in a left lateral decubitus position. IV sedation was administered, after which the upper GI endoscope was passed orally through the length of the esophagus, into the stomach, from there through the pyloric sphincter and stomach through the duodenal ileostomy with the patient being status post previous duodenal switch. The only abnormality noted here was some very mild redness within the prepyloric area related to some bile reflux. There was no blood or bleeding site seen on the upper GI examination of the anastomosis. The duodenal ileostomies were widely patent, and the overall dimensions of the sleeve gastrectomy portion of the duodenal switch remained satisfactory. Biopsies were obtained from the prepyloric area and sent for CLOtest for H. pylori. Minimal bleeding from the biopsy site was seen and upper GI endoscope removed. Of note, the scope was reinserted after the colonoscopy as the patient, at that point, had coughed up some bile, and we wanted to empty the stomach more completely prior to placing the Godfrey catheter. The patient did not appear to have any aspiration episodes in terms of the food getting into lung however. The colonoscope was then inserted after initial digital rectal exam was performed, which was unremarkable. The colonoscope was passed to the level of the cecum. The prep was quite good with there only being a small amount of liquid stool present. No abnormalities were noted on the colonoscopy, the scope was withdrawn and the above findings were reconfirmed. The patient, after having the gastroscope once again reinserted to empty out the stomach, was placed in a supine position. The upper chest and neck areas were prepped and draped sequentially. Then, the left and right subclavian veins were accessed after those areas were anesthetized with 1% lidocaine. In each case, a guidewire could be passed into the subclavian vein, but could not be passed beyond what would be the subclavian-jugular junction on the right side and the subclavian-innominate vein junction on the left side. Attention was taken to the left internal jugular vein, which was visualized by ultrasound. This was quite tiny and, while the vein was unable to cannulate, we were unable to pass a guidewire through that location either. Following then, the right internal jugular vein was identified and cannulated, and a wire was then able to be passed through that vein and into the superior vena cava. Some additional local was then injected along the course of the Godfrey catheter insertion site, which would be roughly four fingerbreadths below the clavicle on the right side, and the jugular vein puncture site on that side. Godfrey catheter was then tunneled between those two areas, and the catheter then deployed over introducer and peel-away catheter, leaving the double-lumen Godfrey catheter tip in the area of the superior vena cava and right atrial junction. At that point, the skin puncture site was closed with a 4-0 Vicryl subdermal stitch and a Steri-Strip, and the Godfrey catheter itself affixed to the skin with 3-0 nylon stitch. The area was radiologically examined and no complications were noted. The patient was taken to the recovery room in a satisfactory condition. Manfred Nicolas MD Job #: [id number]
--- NOTE | 2018-10-03 13:47 | PN ---
DATE OF SERVICE: 10/02/2018 Overnight, the patient developed quite a bit in the way of respiratory distress and diffuse infiltrative pattern, which may be some fluid overload versus more of an ARDS-type picture. It is unclear what is underlying the change in his status, and we will have Dr. Merino continue to try to sort that out. At any rate, he is presently on BiPAP with 100% FiO2 and does have O2 sats now in the 94% range. He does drop quite rapidly when he takes off the BiPAP, however. CT scan of his chest will probably need to be held off until we are able to improve the respiratory status, i.e., getting off the BiPAP. At any rate, the patient's potassium is fairly low as one would expect following the active diuresis over the last 24 hours. He did get some KCl earlier. We will give him some additional K-Phos today. Otherwise, continue the TPN. I think we will hold the albumin and lipids for now and then try to check his sputum Gram stain, C and S. The patient presently is not on antibiotics. We will leave that issue up to Dr. Merino. Manfred Nicolas MD Job #: [id number]
--- NOTE | 2018-10-03 13:48 | PN ---
DATE OF SERVICE: 10/03/2018 The patient has been afebrile with stable vital signs. He still remains on BiPAP, range drops into the 60% range when he goes off that quite quickly. He did have a net diuresis of 3400 mL over the last 24 hours, but the BNP continues to be somewhat higher. We were able to get a sputum Gram stain, which showed some gram-positive cocci. We will get him on some Zyvox pending [employer] reports on that. Otherwise, continue the TPN and minimal IV fluid. His potassium is marginally low, we will supplement that today. As discussed with Dr. Merino, we will try to minimize the amount of IV piggyback volumes, which should be able to be accommodated by means of the central line. Otherwise, continue to manage the patient with the assistance of the hospitalist. Manfred Nicolas MD /[id number]
[2018-10-03] MEDS: Piperacillin/Tazobactam/Dext 3.375 GM in Premix Bag 1 BAG IV SCH ×2 (16:36→22:20)
[2018-10-03] MEDS: Lactobacillus Rhamnosus GG (Probiotic) Cap PO SCH ×2 (16:37→20:56)
[2018-10-03] MEDS: Levofloxacin/Dextrose 5%-Water 750 MG in Premix Bag 1 BAG IV SCH (16:41)
[2018-10-03 20:07] LABS: BANDS 4 % (Not Estab.); BASO (ABSOLUTE) 0.1 x10E3/uL (0.0-0.2); BASOS 2 % (Not Estab.); COMMENTS/RECOMMENDATIONS Note: (.); EOS 0 % (Not Estab.); HEMATOCRIT 29.6 % (37.5-51.0); HEMOGLOBIN 10.7 g/dL (13.0-17.7); IMMATURE CELLS Note (.); LYMPHS 14 % (Not Estab.); LYMPHS (ABSOLUTE) 0.6 x10E3/uL (0.7-3.1); MCH 32.5 pg (26.6-33.0); MCHC 36.1 g/dL (31.5-35.7); MCV 90 fL (79-97); MONOCYTES 0 % (Not Estab.); NEUTROPHILS 80 % (Not Estab.); NEUTROPHILS (ABSOLUTE) 3.8 x10E3/uL (1.4-7.0); NRBC 1 % (0 - 0); PLATELETS 31 x10E3/uL (150-379); PLTS Note: (.); RBC 3.29 x10E6/uL (4.14-5.80); RBC Note: (.); RDW 22.7 % (12.3-15.4); WBC 4.5 x10E3/uL (3.4-10.8); WBC Note: (.)
[2018-10-03] MEDS: Furosemide 40 MG/4 ML VIAL IV SCH (20:56)
[2018-10-04] MEDS: Piperacillin/Tazobactam/Dext 3.375 GM in Premix Bag 1 BAG IV SCH ×4 (03:07→21:16)
[2018-10-04] MEDS: Furosemide 40 MG/4 ML VIAL IV SCH ×3 (04:56→20:22)
[2018-10-04] MEDS ORDERED: 1: AA 5%/Calcium/D15W/Lytes 1,000 ML with MVI, Adult with Vitamin K 10 ML, Chromium/Copp IV SCH ×3 (05:00)
[2018-10-04] MEDS: Linezolid 600 MG in Premix Bag 1 BAG IV SCH ×2 (07:51→19:39)
[2018-10-04] MEDS: Albuterol/Ipratropium 3.0-0.5 MG/3 ML Neb Soln NEB SCH ×4 (08:12→20:22)
[2018-10-04] MEDS: Levothyroxine 100 MCG Tab PO SCH (09:28)
[2018-10-04] MEDS: Pantoprazole 40 MG Tab.CR PO SCH (09:28)
[2018-10-04] MEDS: Lactobacillus Rhamnosus GG (Probiotic) Cap PO SCH ×2 (09:28→20:22)
[2018-10-04] MEDS: Potassium Phosphates 22.5 MMOLE in Sodium Chloride 0.9% 100 ML IV SCH ×2 (10:20→13:34)
[2018-10-04] MEDS: Aspirin 81 MG Tab.EC PO SCH (10:20)
--- NOTE | 2018-10-04 10:20 | PCM.PN ---
- General Info Date of Service: 10/04/18 Subjective Update: Mr. Nacho Mccabe he feels modestly improved today was slightly decreased level of dyspnea. Continues to require noninvasive positive pressure ventilation to maintain adequate oxygenation. Saturations dropped quickly if he goes off of the BiPAP but improved fairly quickly when he goes back on. Vital signs have been stable and he is remained afebrile. Chest x-ray continues to show bilateral patchy infiltrates. - Review of Systems General: Reports: Weakness. Denies: Fever, Chills Pulmonary: Reports: Shortness of Breath. Denies: Pleuritic Chest Pain, Cough, Sputum, Hemoptysis, Wheezing Cardiovascular: Reports: Dyspnea on Exertion. Denies: Chest Pain, Palpitations , Orthopnea, PND, Edema Gastrointestinal: Reports: No Symptoms - Patient Data Vitals - Most Recent: Last Vital Signs Temp 96.9 F 10/04/18 05:00 Pulse 73 10/04/18 09:00 Resp 20 10/04/18 09:00 BP 144/71 H 10/04/18 09:00 Pulse Ox 100 10/04/18 09:00 Weight - Most Recent: 106 lb I&O - Last 24 Hours: Intake & Output 10/03/18 10/04/18 10/04/18 22:59 06:59 14:59 Intake Total 1440 1620 Output Total 1075 1825 Balance 365 -205 Lab Results Last 24 Hours: Laboratory Results - last 24 hr 09/29/18 10/04/18 10/04/18 Range/Units 09:27 04:25 04:25 WBC 3.4 L (4.5-11.0) K/uL WBC (Send Out) 4.5 (3.4-10.8) x10E3/uL RBC 2.94 L (4.30-5.90) M/uL RBC (Send Out) 3.29 L (4.14-5.80) x10E6/uL Hgb 9.3 L (12.0-15.0) g/dL Hgb (Send Out) 10.7 L (13.0-17.7) g/dL Hct 27.2 L (40.0-54.0) % Hct (Send Out) 29.6 L (37.5-51.0) % MCV 93 (80-98) fL MCV (Send Out) 90 (79-97) fL MCH 32 H (27-31) pg MCH (Send Out) 32.5 (26.6-33.0) pg MCHC 34 (32-36) % MCHC (Send Out) 36.1 H (31.5-35.7) g/dL Red Cell Dist (Send Out) 22.7 H (12.3-15.4) % Plt Count 60 L (150-400) K/uL Plt Count (Send Out) 31 L (150-379) x10E3/uL Diff Scan Note: (.) Immature Gran % TNP Neutrophils % Send Out 80 (Not Estab.) % Band Neutrophils % 4 (Not Estab.) % Lymphocytes % (Send Out) 14 (Not Estab.) % Monocytes % (Send Out) 0 (Not Estab.) % Eosinophils % Send Out 0 (Not Estab.) % Basophils % (Send Out) 2 (Not Estab.) % Metamyelocytes % TNP Myelocytes % TNP Promyelocytes % TNP Blast Cells % TNP Megakaryocytes % TNP Other Cells % TNP Immature Gran # TNP Neutrophils # (Send Out) 3.8 (1.4-7.0) x10E3/uL Lymphocytes # (Send Out) 0.6 L (0.7-3.1) x10E3/uL Monocytes #(Send Out) 0.0 L (0.1-0.9) x10E3/uL Eosinophils # Send Out 0.0 (0.0-0.4) x10E3/uL Basophils # (Send Out) 0.1 (0.0-0.2) x10E3/uL Nucleated RBCs Send Out 1 H (0 - 0) % Immature Cells Send Out Note (.) Platelet Morphology Note: (.) RBC Morphology Note: (.) Peripher Smr Path Cons Note: (.) Smear Path Review Comment (.) Hematology Comments TNP Puncture Site R brachial ABG pH 7.513 H (7.350-7.450) ABG pCO2 41.9 (35.0-42.0) mmHg ABG pO2 51.9 L (75.0-100.0) mmHg ABG HCO3 33.4 H (22.0-26.0) mmol/L ABG Total CO2 30.6 H (23.0-27.0) mmol/L ABG O2 Saturation 83.5 L (95.0-98.0) % ABG O2 Content 11.1 L (15.0-23.0) %vol ABG Base Excess 9.7 mm/L ABG Hemoglobin 9.8 L (13.5-18.0) g/dL ABG Oxyhemoglobin 80.7 % ABG Carboxyhemoglobin -0.3 L (0.0-1.6) % ABG Methemoglobin 3.7 % O2 Delivery Device Bipap Oxygen Flow Rate L Sodium (140-148) mmol/L Potassium (3.6-5.2) mmol/L Chloride (100-108) mmol/L Carbon Dioxide (21-32) mmol/L Anion Gap (5.0-14.0) mmol/L BUN (7-18) mg/dL Creatinine (0.8-1.3) mg/dL Est Cr Clr Drug Dosing mL/min Estimated GFR (MDRD) (>60) Glucose (74-106) mg/dL Calcium (8.5-10.1) mg/dL Phosphorus (2.5-4.9) mg/dL Magnesium (1.8-2.4) mg/dL Total Bilirubin (0.2-1.0) mg/dL AST (15-37) U/L ALT (12-78) U/L Alkaline Phosphatase (46-116) U/L NT-Pro-B Natriuret Pep (5-125) pg/mL Total Protein (6.4-8.2) g/dL Albumin (3.4-5.0) g/dL Globulin (2.3-3.5) g/dL Albumin/Globulin Ratio (1.2-2.2) 10/04/18 Range/Units 04:25 WBC (4.5-11.0) K/uL WBC (Send Out) (3.4-10.8) x10E3/uL RBC (4.30-5.90) M/uL RBC (Send Out) (4.14-5.80) x10E6/uL Hgb (12.0-15.0) g/dL Hgb (Send Out) (13.0-17.7) g/dL Hct (40.0-54.0) % Hct (Send Out) (37.5-51.0) % MCV (80-98) fL MCV (Send Out) (79-97) fL MCH (27-31) pg MCH (Send Out) (26.6-33.0) pg MCHC (32-36) % MCHC (Send Out) (31.5-35.7) g/dL Red Cell Dist (Send Out) (12.3-15.4) % Plt Count (150-400) K/uL Plt Count (Send Out) (150-379) x10E3/uL Diff Scan (.) Immature Gran % Neutrophils % Send Out (Not Estab.) % Band Neutrophils % (Not Estab.) % Lymphocytes % (Send Out) (Not Estab.) % Monocytes % (Send Out) (Not Estab.) % Eosinophils % Send Out (Not Estab.) % Basophils % (Send Out) (Not Estab.) % Metamyelocytes % Myelocytes % Promyelocytes % Blast Cells % Megakaryocytes % Other Cells % Immature Gran # Neutrophils # (Send Out) (1.4-7.0) x10E3/uL Lymphocytes # (Send Out) (0.7-3.1) x10E3/uL Monocytes #(Send Out) (0.1-0.9) x10E3/uL Eosinophils # Send Out (0.0-0.4) x10E3/uL Basophils # (Send Out) (0.0-0.2) x10E3/uL Nucleated RBCs Send Out (0 - 0) % Immature Cells Send Out (.) Platelet Morphology (.) RBC Morphology (.) Peripher Smr Path Cons (.) Smear Path Review (.) Hematology Comments Puncture Site ABG pH (7.350-7.450) ABG pCO2 (35.0-42.0) mmHg ABG pO2 (75.0-100.0) mmHg ABG HCO3 (22.0-26.0) mmol/L ABG Total CO2 (23.0-27.0) mmol/L ABG O2 Saturation (95.0-98.0) % ABG O2 Content (15.0-23.0) %vol ABG Base Excess mm/L ABG Hemoglobin (13.5-18.0) g/dL ABG Oxyhemoglobin % ABG Carboxyhemoglobin (0.0-1.6) % ABG Methemoglobin % O2 Delivery Device Oxygen Flow Rate L Sodium 140 (140-148) mmol/L Potassium 3.1 L (3.6-5.2) mmol/L Chloride 101 (100-108) mmol/L Carbon Dioxide 32 (21-32) mmol/L Anion Gap 10.1 (5.0-14.0) mmol/L BUN 38 H (7-18) mg/dL Creatinine 1.0 (0.8-1.3) mg/dL Est Cr Clr Drug Dosing 59.61 mL/min Estimated GFR (MDRD) > 60 (>60) Glucose 120 H (74-106) mg/dL Calcium 9.5 (8.5-10.1) mg/dL Phosphorus 3.5 (2.5-4.9) mg/dL Magnesium 1.9 (1.8-2.4) mg/dL Total Bilirubin 2.7 H (0.2-1.0) mg/dL AST 173 H (15-37) U/L ALT 63 (12-78) U/L Alkaline Phosphatase 106 (46-116) U/L NT-Pro-B Natriuret Pep 759 H (5-125) pg/mL Total Protein 5.1 L (6.4-8.2) g/dL Albumin 2.5 L (3.4-5.0) g/dL Globulin 2.6 (2.3-3.5) g/dL Albumin/Globulin Ratio 1.0 L (1.2-2.2) [place] Results Last 24 Hours: Microbiology 10/03/18 04:10 Gram Stain - Final Sputum - Expectorated Respiratory Culture - Preliminary Med Orders - Current: Current Medications Acetaminophen (Tylenol) 650 mg PO Q4H PRN PRN Reason: ANALGESIA/FEVER Last Admin: 10/01/18 22:01 Dose: 650 mg Acetaminophen (Tylenol) 650 mg RECTAL Q4H PRN PRN Reason: ANALGESIA/FEVER Albuterol (Proventil Neb Soln) 2.5 mg NEB Q2H PRN PRN Reason: Shortness of Breath Albuterol/Ipratropium (Duoneb 3.0-0.5 Mg/3 Ml) 3 ml NEB QIDRT [facility] Last Admin: 10/04/18 08:12 Dose: 3 ml Aspirin (Halfprin) 81 mg PO DAILY [facility] Last Admin: 10/03/18 09:21 Dose: Not Given Benzocaine/Menthol (Cepacol Sore Throat) 1 lozenge MUCMEM 6XDAY PRN PRN Reason: Sore Throat Last Admin: 09/27/18 15:32 Dose: 1 john Furosemide (Lasix) 40 mg IV Q8H [facility] Last Admin: 10/04/18 04:56 Dose: 40 mg Heparin Sodium (Porcine) (Heparin Lock Flush 100 Units/Ml) 250 units 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 Last Admin: 10/02/18 14:24 Dose: 250 units Linezolid 600 mg/ Premix 300 mls @ 300 mls/hr IV Q12H [facility] Last Admin: 10/04/18 07:51 Dose: 300 mls/hr Multivitamins/Minerals 10 ml/Chromium/Copper/Manganese/Seleni/Zn 1 ml/ Amino Ac/ Electrol/Dextrose/Calcium 1,011 mls @ 40 mls/hr IV .BY DURATION [facility] Last Admin: 10/04/18 04:56 Dose: 40 mls/hr Amino Ac/Electrol/Dextrose/Calcium (Clinimix E /15) 1,000 mls @ 40 mls/hr IV .BY DURATION [facility] Piperacillin/Tazobactam/ (Dextrose 3.375 gm/ Premix) 50 mls @ 100 mls/hr IV Q6H [facility] Last Admin: 10/04/18 09:30 Dose: 100 mls/hr Levofloxacin/Dextrose 750 mg/ (Premix) 150 mls @ 100 mls/hr IV Q24H [facility] Last Admin: 10/03/18 16:41 Dose: 100 mls/hr Potassium Phosphate 22.5 mmole (/ Sodium Chloride) 107.5 mls @ 27 mls/hr IV Q4H [facility] Stop: 10/04/18 17:59 Lactobacillus Rhamnosus (Culturelle) 1 cap PO BID [facility] Last Admin: 10/04/18 09:28 Dose: 1 cap Levothyroxine Sodium (Synthroid) 100 mcg PO ACBREAKFAST [facility] Last Admin: 10/04/18 09:28 Dose: 100 mcg Loperamide HCl (Imodium) 2 mg PO QID PRN PRN Reason: DIARRHEA Lorazepam (Ativan) 0.5 mg IVPUSH Q4H PRN PRN Reason: Anxiety Morphine Sulfate (Morphine) 4 mg IVPUSH Q2H PRN PRN Reason: air hunger/chest tightness Pantoprazole Sodium (Protonix) 40 mg PO ACBREAKFAST [facility] Last Admin: 10/04/18 09:28 Dose: 40 mg Sodium Chloride (Saline Flush) 5 ml IV 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 Last Admin: 10/02/18 18:57 Dose: 5 ml Tramadol HCl (Ultram) 50 mg PO Q4H PRN PRN Reason: Pain Last Admin: 09/27/18 15:17 Dose: 50 mg Discontinued Medications Albuterol/Ipratropium (Duoneb 3.0-0.5 Mg/3 Ml) 3 ml NEB Q6H [facility] Last Admin: 09/29/18 19:53 Dose: 3 ml Albuterol/Ipratropium (Duoneb 3.0-0.5 Mg/3 Ml) 3 ml NEB Q2H PRN PRN Reason: shortness of breath Last Admin: 10/01/18 17:31 Dose: 3 ml Bupivacaine HCl (Marcaine 0.5%) Confirm Administered Dose 50 ml .ROUTE .STK-MED ONE Stop: 09/27/18 07:25 Last Admin: 09/27/18 09:39 Dose: 7 ml Fentanyl (Sublimaze) Confirm Administered Dose 100 mcg .ROUTE .STK-MED ONE Stop: 09/27/18 07:07 Furosemide (Lasix) 20 mg PO BIDDIURETIC [facility] Last Admin: 09/27/18 15:03 Dose: Not Given Furosemide (Lasix) 20 mg IV ONETIME ONE Stop: 09/27/18 16:01 Last Admin: 09/27/18 15:08 Dose: 20 mg Furosemide (Lasix) 40 mg IVPUSH ONETIME ONE Stop: 09/29/18 22:46 Last Admin: 09/29/18 23:04 Dose: 40 mg Furosemide (Lasix) 40 mg IVPUSH ONETIME ONE Stop: 09/30/18 08:11 Last Admin: 09/30/18 08:03 Dose: 40 mg Furosemide (Lasix) 20 mg PO BIDDIURETIC [facility] Last Admin: 10/02/18 10:25 Dose: Not Given Furosemide (Lasix) 20 mg IV ONETIME ONE Stop: 10/01/18 10:01 Last Admin: 10/01/18 09:36 Dose: 20 mg Furosemide (Lasix) 20 mg IVPUSH ONETIME ONE Stop: 10/01/18 18:28 Last Admin: 10/01/18 18:34 Dose: 20 mg Furosemide (Lasix) 40 mg IVPUSH ONETIME ONE Stop: 10/01/18 21:45 Last Admin: 10/01/18 22:21 Dose: 40 mg Furosemide (Lasix) 40 mg IVPUSH ONETIME ONE Stop: 10/02/18 05:01 Last Admin: 10/02/18 05:13 Dose: 40 mg Furosemide 20 mg/ Furosemide (40 mg) 60 mg IV Q8H [facility] Last Admin: 10/03/18 09:11 Dose: 60 mg Heparin Sodium (Porcine) (Heparin Lock Flush 100 Units/Ml) Confirm Administered Dose 1,500 units .ROUTE .STK-MED ONE Stop: 09/27/18 07:26 Last Admin: 09/27/18 09:39 Dose: 1,500 units Dextrose/Lactated Ringer's (Dextrose 5%-Lactated Ringers) 1,000 mls @ 100 mls/ hr IV ASDIRECTED [facility] Stop: 09/26/18 20:59 Last Admin: 09/26/18 12:03 Dose: 100 mls/hr Albumin Human (Albumin 25%) 25 gm in 100 mls @ 25 mls/hr IV ONETIME ONE Stop: 09/26/18 20:59 Last Admin: 09/26/18 16:54 Dose: 25 mls/hr Multivitamins/Minerals 10 ml/Chromium/Copper/Manganese/Zinc 1 ml/ Thiamine HCl 100 mg/Dextrose/Lactated Ringer's 1,012 mls @ 100 mls/hr IV .Q10H8M [facility] Stop: 09/27/18 13:59 Last Admin: 09/27/18 11:43 Dose: 100 mls/hr Levofloxacin/Dextrose 500 mg/ (Premix) 100 mls @ 100 mls/hr IV ONETIME ONE Stop: 09/27/18 09:29 Last Admin: 09/27/18 20:47 Dose: Not Given Clindamycin Phosphate 900 mg/ (Sodium Chloride) 106 mls @ 212 mls/hr IV ONETIME ONE Stop: 09/27/18 09:59 Last Admin: 09/27/18 20:47 Dose: Not Given Lactated Ringer's (Ringers, Lactated) Confirm Administered Dose 1,000 mls @ as directed .ROUTE .STK-MED ONE Stop: 09/27/18 09:48 Albumin Human (Albumin 25%) 25 gm in 100 mls @ 25 mls/hr IV Q24H [facility] Stop: 09/30/18 15:59 Last Admin: 09/30/18 12:10 Dose: 25 mls/hr Multivitamins/Minerals 10 ml/Chromium/Copper/Manganese/Seleni/Zn 1 ml/ Amino Ac/ Electrol/Dextrose/Calcium 1,011 mls @ 80 mls/hr IV .BY DURATION [facility] Stop: 09/28/18 14:59 Last Admin: 09/27/18 14:31 Dose: 80 mls/hr Amino Ac/Electrol/Dextrose/Calcium (Clinimix E 5/15) 1,000 mls @ 80 mls/hr IV .BY DURATION [facility] Stop: 09/28/18 14:59 Last Admin: 09/28/18 03:13 Dose: 80 mls/hr Fat Emulsion Intravenous (Intralipid 20%) 100 mls @ 8.3 mls/hr IV ONETIME ONE Stop: 09/28/18 04:02 Last Admin: 09/27/18 16:30 Dose: 8.3 mls/hr Sodium Chloride (Normal Saline) 1,000 mls @ 0 mls/hr IV ASDIRECTED [facility] Stop: 09/28/18 11:59 Last Admin: 09/27/18 16:36 Dose: 25 mls/hr Acetaminophen 1,000 mg/ Premix 100 mls @ 400 mls/hr IV NOW ONE Stop: 09/27/18 13:14 Last Admin: 09/27/18 12:56 Dose: 400 mls/hr Levofloxacin/Dextrose 500 mg/ (Premix) 100 mls @ 100 mls/hr IV Q24H [facility] Last Admin: 09/28/18 07:28 Dose: 100 mls/hr Clindamycin Phosphate 900 mg/ (Sodium Chloride) 106 mls @ 212 mls/hr IV Q12H [facility] Last Admin: 09/28/18 21:42 Dose: 212 mls/hr Dextrose/Sodium Chloride (Dextrose 5%-1/2 Ns) 1,000 mls @ 0 mls/hr IV ASDIRECTED [facility] Last Admin: 10/01/18 15:04 Dose: 25 mls/hr Magnesium Sulfate 2 gm/ Premix 50 mls @ 25 mls/hr IV Q6H [facility] Stop: 10/01/18 05:59 Last Admin: 10/01/18 03:28 Dose: 25 mls/hr Albumin Human (Albumin 25%) 25 gm in 100 mls @ 25 mls/hr IV Q24H [facility] Stop: 09/30/18 19:59 Last Admin: 09/30/18 16:39 Dose: 25 mls/hr Multivitamins/Minerals 10 ml/Chromium/Copper/Manganese/Seleni/Zn 1 ml/ Amino Ac/ Electrol/Dextrose/Calcium 1,011 mls @ 80 mls/hr IV .BY DURATION [facility] Stop: 09/30/18 17:15 Last Admin: 09/29/18 16:05 Dose: 80 mls/hr Amino Ac/Electrol/Dextrose/Calcium (Clinimix E 5/15) 1,000 mls @ 80 mls/hr IV .BY DURATION [facility] Stop: 09/30/18 17:15 Last Admin: 09/30/18 05:54 Dose: 80 mls/hr Fat Emulsion Intravenous (Intralipid 20%) 100 mls @ 9 mls/hr IV ONETIME ONE Stop: 09/29/18 05:06 Last Admin: 09/28/18 17:39 Dose: 9 mls/hr Potassium Phosphate 15 mmole/ (Sodium Chloride) 105 mls @ 50 mls/hr IV Q2H [facility] Stop: 09/30/18 15:59 Last Admin: 09/30/18 14:32 Dose: 50 mls/hr Multivitamins/Minerals 10 ml/Chromium/Copper/Manganese/Seleni/Zn 1 ml/ Amino Ac/ Electrol/Dextrose/Calcium 1,011 mls @ 60 mls/hr IV .BY DURATION [facility] Stop: 10/02/18 20:00 Last Infusion: 10/02/18 09:00 Dose: 40 mls/hr Amino Ac/Electrol/Dextrose/Calcium (Clinimix E 5/15) 1,000 mls @ 60 mls/hr IV .BY DURATION [facility] Stop: 10/02/18 20:00 Last Admin: 10/01/18 13:24 Dose: 60 mls/hr Albumin Human (Albumin 25%) 25 gm in 100 mls @ 25 mls/hr IV Q24H [facility] Stop: 10/03/18 15:59 Last Admin: 10/01/18 12:18 Dose: 25 mls/hr Albumin Human (Albumin 25%) 25 gm in 100 mls @ 25 mls/hr IV Q24H [facility] Stop: 10/03/18 19:59 Last Admin: 10/01/18 16:38 Dose: 25 mls/hr Fat Emulsion Intravenous (Intralipid 20%) 250 mls @ 21 mls/hr IV ONETIME ONE Stop: 10/02/18 05:54 Last Admin: 10/01/18 17:31 Dose: 21 mls/hr Fat Emulsion Intravenous (Intralipid 20%) 250 mls @ 21 mls/hr IV Q24H [facility] Potassium Chloride 20 meq/Lidocaine HCl 2 ml/ Sodium Chloride 112 mls @ 50 mls/ hr IV Q2H [facility] Stop: 10/02/18 07:29 Last Admin: 10/02/18 06:32 Dose: Not Given Potassium Chloride 40 meq/ (Premix) 100 mls @ 25 mls/hr IV ONETIME ONE Stop: 10/02/18 07:30 Last Admin: 10/02/18 03:50 Dose: 25 mls/hr Potassium Chloride (Kcl 40 Meq In Water 100 Ml) Confirm Administered Dose 100 mls @ as directed .ROUTE .STK-MED ONE Stop: 10/02/18 03:50 Last Admin: 10/02/18 04:03 Dose: Not Given Potassium Phosphate 22.5 mmole (/ Sodium Chloride) 107.5 mls @ 26 mls/hr IV Q4H [facility] Stop: 10/02/18 18:29 Last Admin: 10/02/18 14:34 Dose: 26 mls/hr Multivitamins/Minerals 10 ml/Chromium/Copper/Manganese/Seleni/Zn 1 ml/ Amino Ac/ Electrol/Dextrose/Calcium 1,011 mls @ 40 mls/hr IV .BY DURATION [facility] Stop: 10/03/18 23:30 Last Admin: 10/03/18 05:34 Dose: 40 mls/hr Amino Ac/Electrol/Dextrose/Calcium (Clinimix E 5/15) 1,000 mls @ 40 mls/hr IV .BY DURATION [facility] Stop: 10/03/18 23:30 Potassium Chloride 40 meq/ (Premix) 100 mls @ 25 mls/hr IV ONETIME ONE Stop: 10/03/18 12:59 Last Admin: 10/03/18 08:20 Dose: 25 mls/hr Lidocaine HCl (Xylocaine 2% Jelly) 10 ml MUCMEM ONETIME ONE Stop: 10/01/18 21:56 Last Admin: 10/01/18 22:04 Dose: 10 ml Lidocaine/Epinephrine (Xylocaine 1% With Epinephrine 1:100,000) Confirm Administered Dose 50 ml .ROUTE .STK-MED ONE Stop: 09/27/18 07:26 Last Admin: 09/27/18 09:40 Dose: 7 ml Loperamide HCl (Imodium) 2 mg PO QID [facility] Last Admin: 10/02/18 05:13 Dose: 2 mg Midazolam HCl (Versed 1 Mg/Ml) Confirm Administered Dose 2 mg .ROUTE .STK-MED ONE Stop: 09/27/18 07:08 Non-Formulary Medication (Total Parenteral Nutrition, Central) 1,000 ml .XX .Continue Order [facility] Stop: 09/29/18 12:00 Non-Formulary Medication (Total Parenteral Nutrition, Central) 1,000 ml .XX .Continue Order [facility] Stop: 09/30/18 09:00 Pantoprazole Sodium (Protonix Iv) 40 mg IV Q24H [facility] Last Admin: 09/29/18 14:31 Dose: 40 mg Polyethylene Glycol (Miralax) 238 gm PO ONETIME ONE Stop: 09/26/18 17:01 Last Admin: 09/26/18 16:54 Dose: 238 gram Propofol (Diprivan 20 Ml) Confirm Administered Dose 200 mg .ROUTE .STK-MED ONE Stop: 09/27/18 07:07 Propofol (Diprivan 20 Ml) Confirm Administered Dose 200 mg .ROUTE .STK-MED ONE Stop: 09/27/18 09:05 - Exam Quality Assessment: Supplemental Oxygen (Noninvasive positive pressure ventilation), Central Line/PICC, Urine Catheter, DVT Prophylaxis General: Alert, Oriented, Cooperative, Mild Distress Lungs: Decreased Breath Sounds, Rales. No: Rhonchi, Wheezing Cardiovascular: Regular Rate, Regular Rhythm, No Murmurs GI/Abdominal Exam: Soft, Non-Tender, No Organomegaly, No Distention Back Exam: Normal Inspection, Full Range of Motion Extremities: Non-Tender, No Pedal Edema Skin: Warm, Dry - Problem List Review Problem List Initiated/Reviewed/Updated: Yes - My Orders Last 24 Hours: My Active Orders 10/03/18 10:13 Echo Comp wo Cont [US] Urgent 10/03/18 15:00 Lactobacillus Rhamnosus GG [Culturelle] 1 cap PO BID Levofloxacin/Dextrose 5%-Water [Levaquin in D5W 750 MG/150 ML] 750 mg Premix Bag 1 bag IV Q24H 10/03/18 16:00 Piperacillin/Tazobactam/Dext [Zosyn in Dextrose Iso-Osmotic 3.375 GM] 3.375 gm Premix Bag 1 bag IV Q6H 10/03/18 21:00 Furosemide [Lasix] 40 mg IV Q8H - Plan Plan:: ASSESSMENT AND PLAN - ARDS/Acute respiratory failure with hypoxia - grossly improved since yesterday, subjectively less short of breath but continues to require supplemental oxygen and noninvasive positive pressure ventilation. Echocardiogram showed adequate left ventricular function and moderate mitral regurgitation. -insert Gibbons catheter -Furosemide 40 mg daily -Noninvasive positive pressure ventilation -Continue broad-spectrum antibiotic coverage with Zyvox, Zosyn, and levofloxacin pending culture results -minimize fluid intake beyond TPN
[2018-10-04] MEDS: Levofloxacin/Dextrose 5%-Water 750 MG in Premix Bag 1 BAG IV SCH (15:22)
[2018-10-05] MEDS: Piperacillin/Tazobactam/Dext 3.375 GM in Premix Bag 1 BAG IV SCH ×4 (04:02→22:14)
[2018-10-05] MEDS: Furosemide 40 MG/4 ML VIAL IV SCH (04:02)
[2018-10-05] MEDS ORDERED: 1: AA 5%/Calcium/D15W/Lytes 1,000 ML with MVI, Adult with Vitamin K 10 ML, Chromium/Copp IV SCH ×6 (05:00→22:00)
[2018-10-05] MEDS: Albuterol/Ipratropium 3.0-0.5 MG/3 ML Neb Soln NEB SCH ×4 (07:35→21:01)
[2018-10-05] MEDS: Levothyroxine 100 MCG Tab PO SCH (07:58)
[2018-10-05] MEDS: Pantoprazole 40 MG Tab.CR PO SCH (07:58)
[2018-10-05] MEDS ORDERED: Potassium Chloride 20 MEQ in Premix Bag 1 BAG IV ONE (08:00)
[2018-10-05] MEDS: Linezolid 600 MG in Premix Bag 1 BAG IV SCH ×2 (08:08→20:05)
[2018-10-05] MEDS: Lactobacillus Rhamnosus GG (Probiotic) Cap PO SCH ×2 (09:39→21:01)
[2018-10-05] MEDS: Aspirin 81 MG Tab.EC PO SCH (09:39)
[2018-10-05] MEDS: Loratadine 10 MG Tab.DIS PO SCH (09:39)
[2018-10-05] MEDS ORDERED: Potassium Chloride Riders 40 MEQ in Premix Bag 1 BAG IV ONE ×2 (10:00→20:00)
--- NOTE | 2018-10-05 10:15 | PCM.PN ---
- General Info Date of Service: 10/05/18 Subjective Update: Mr. Griffith is continued to slowly improve and reports less symptoms of shortness of breath today compared to yesterday. He is otherwise been stable over the last 24 hours with no significant temperature elevation and good vital signs. Chest x-ray this morning does show modest clearing of the bilateral infiltrates. Functional Status: Reports: Urinating - Review of Systems General: Reports: Weakness. Denies: Fever, Chills Pulmonary: Reports: Shortness of Breath. Denies: Pleuritic Chest Pain, Cough, Sputum, Hemoptysis, Wheezing Cardiovascular: Reports: Dyspnea on Exertion. Denies: Chest Pain, Palpitations , Orthopnea, PND, Edema Gastrointestinal: Reports: No Symptoms - Patient Data Vitals - Most Recent: Last Vital Signs Temp 97 F 10/05/18 08:00 Pulse 80 10/05/18 08:00 Resp 16 10/05/18 08:00 BP 112/55 L 10/05/18 08:00 Pulse Ox 95 10/05/18 08:00 Weight - Most Recent: 106 lb I&O - Last 24 Hours: Intake & Output 10/04/18 10/05/18 10/05/18 22:59 06:59 14:59 Intake Total 1484 1002 350 Output Total 2125 1300 530 Balance -641 298 180 Lab Results Last 24 Hours: Laboratory Results - last 24 hr 10/05/18 10/05/18 10/05/18 Range/Units 03:35 03:36 03:36 WBC 2.5 L (4.5-11.0) K/uL RBC 3.01 L (4.30-5.90) M/uL Hgb 9.0 L (12.0-15.0) g/dL Hct 27.7 L (40.0-54.0) % MCV 92 (80-98) fL MCH 30 (27-31) pg MCHC 33 (32-36) % Plt Count 65 L (150-400) K/uL Puncture Site Rt radial ABG pH 7.602 H* (7.350-7.450) ABG pCO2 34.2 L (35.0-42.0) mmHg ABG pO2 104.0 H (75.0-100.0) mmHg ABG HCO3 33.9 H (22.0-26.0) mmol/L ABG Total CO2 30.8 H (23.0-27.0) mmol/L ABG O2 Saturation 95.4 (95.0-98.0) % ABG O2 Content 12.1 L (15.0-23.0) %vol ABG Base Excess 11.3 mm/L ABG Hemoglobin 9.3 L (13.5-18.0) g/dL ABG Oxyhemoglobin 90.7 % ABG Carboxyhemoglobin 1.1 (0.0-1.6) % ABG Methemoglobin 3.8 % Bob Test Pass O2 Delivery Device Bipap Oxygen Flow Rate L Sodium 139 L (140-148) mmol/L Potassium 2.8 L* (3.6-5.2) mmol/L Chloride 98 L (100-108) mmol/L Carbon Dioxide 37 H (21-32) mmol/L Anion Gap 6.8 (5.0-14.0) mmol/L BUN 35 H (7-18) mg/dL Creatinine 1.0 (0.8-1.3) mg/dL Est Cr Clr Drug Dosing 54.76 mL/min Estimated GFR (MDRD) > 60 (>60) Glucose 92 (74-106) mg/dL Calcium 8.6 (8.5-10.1) mg/dL Phosphorus 4.0 (2.5-4.9) mg/dL Magnesium 1.7 L (1.8-2.4) mg/dL Total Bilirubin 2.4 H (0.2-1.0) mg/dL AST 160 H (15-37) U/L ALT 57 (12-78) U/L Alkaline Phosphatase 108 (46-116) U/L NT-Pro-B Natriuret Pep 515 H (5-125) pg/mL Total Protein 4.8 L (6.4-8.2) g/dL Albumin 2.2 L (3.4-5.0) g/dL Globulin 2.6 (2.3-3.5) g/dL Albumin/Globulin Ratio 0.9 L (1.2-2.2) [place] Results Last 24 Hours: Microbiology 10/03/18 04:10 Gram Stain - Final Sputum - Expectorated Respiratory Culture - Preliminary NORMAL RESPIRATORY LEIDA 1 DAY Med Orders - Current: Current Medications Acetaminophen (Tylenol) 650 mg PO Q4H PRN PRN Reason: ANALGESIA/FEVER Last Admin: 10/01/18 22:01 Dose: 650 mg Acetaminophen (Tylenol) 650 mg RECTAL Q4H PRN PRN Reason: ANALGESIA/FEVER Acetazolamide (Diamox) 250 mg IVPUSH Q6H [facility] Stop: 10/05/18 22:01 Albuterol (Proventil Neb Soln) 2.5 mg NEB Q2H PRN PRN Reason: Shortness of Breath Albuterol/Ipratropium (Duoneb 3.0-0.5 Mg/3 Ml) 3 ml NEB QIDRT [facility] Last Admin: 10/05/18 07:35 Dose: 3 ml Aspirin (Halfprin) 81 mg PO DAILY [facility] Last Admin: 10/05/18 09:39 Dose: 81 mg Benzocaine/Menthol (Cepacol Sore Throat) 1 lozenge MUCMEM 6XDAY PRN PRN Reason: Sore Throat Last Admin: 09/27/18 15:32 Dose: 1 john Furosemide (Lasix) 40 mg IV DAILY [facility] Heparin Sodium (Porcine) (Heparin Lock Flush 100 Units/Ml) 250 units 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 Last Admin: 10/02/18 14:24 Dose: 250 units Linezolid 600 mg/ Premix 300 mls @ 300 mls/hr IV Q12H [facility] Last Admin: 10/05/18 08:08 Dose: 300 mls/hr Piperacillin/Tazobactam/ (Dextrose 3.375 gm/ Premix) 50 mls @ 100 mls/hr IV Q6H [facility] Last Admin: 10/05/18 09:45 Dose: 100 mls/hr Levofloxacin/Dextrose 750 mg/ (Premix) 150 mls @ 100 mls/hr IV Q24H [facility] Last Admin: 10/04/18 15:22 Dose: 100 mls/hr Multivitamins/Minerals 10 ml/Chromium/Copper/Manganese/Seleni/Zn 1 ml/ Amino Ac/ Electrol/Dextrose/Calcium 1,011 mls @ 40 mls/hr IV .BY DURATION [facility] Stop: 10/05/18 21:59 Last Admin: 10/05/18 04:44 Dose: 40 mls/hr Amino Ac/Electrol/Dextrose/Calcium (Clinimix E 5/15) 1,000 mls @ 40 mls/hr IV .BY DURATION [facility] Stop: 10/05/18 21:59 Potassium Chloride 40 meq/ (Premix) 100 mls @ 25 mls/hr IV ONETIME ONE Stop: 10/05/18 13:59 Magnesium Sulfate 2 gm/ Premix 50 mls @ 25 mls/hr IV Q6H [facility] Stop: 10/07/18 05:59 Multivitamins/Minerals 10 ml/Chromium/Copper/Manganese/Seleni/Zn 1 ml/ Amino Ac/ Electrol/Dextrose/Calcium 1,011 mls @ 60 mls/hr IV .BY DURATION [facility] Amino Ac/Electrol/Dextrose/Calcium (Clinimix E 5/15) 1,000 mls @ 60 mls/hr IV .BY DURATION [facility] Potassium Chloride 40 meq/ (Premix) 100 mls @ 25 mls/hr IV ONETIME ONE Stop: 10/05/18 23:59 Lactobacillus Rhamnosus (Culturelle) 1 cap PO BID [facility] Last Admin: 10/05/18 09:39 Dose: 1 cap Levothyroxine Sodium (Synthroid) 100 mcg PO ACBREAKFAST [facility] Last Admin: 10/05/18 07:58 Dose: 100 mcg Loperamide HCl (Imodium) 2 mg PO QID PRN PRN Reason: DIARRHEA Loratadine (Claritin Reditabs) 10 mg PO DAILY [facility] Last Admin: 10/05/18 09:39 Dose: 10 mg Lorazepam (Ativan) 0.5 mg IVPUSH Q4H PRN PRN Reason: Anxiety Morphine Sulfate (Morphine) 4 mg IVPUSH Q2H PRN PRN Reason: air hunger/chest tightness Pantoprazole Sodium (Protonix) 40 mg PO ACBREAKFAST [facility] Last Admin: 10/05/18 07:58 Dose: 40 mg Sodium Chloride (Saline Flush) 5 ml IV 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 Last Admin: 10/02/18 18:57 Dose: 5 ml Tramadol HCl (Ultram) 50 mg PO Q4H PRN PRN Reason: Pain Last Admin: 09/27/18 15:17 Dose: 50 mg Discontinued Medications Albuterol/Ipratropium (Duoneb 3.0-0.5 Mg/3 Ml) 3 ml NEB Q6H [facility] Last Admin: 09/29/18 19:53 Dose: 3 ml Albuterol/Ipratropium (Duoneb 3.0-0.5 Mg/3 Ml) 3 ml NEB Q2H PRN PRN Reason: shortness of breath Last Admin: 10/01/18 17:31 Dose: 3 ml Bupivacaine HCl (Marcaine 0.5%) Confirm Administered Dose 50 ml .ROUTE .STK-MED ONE Stop: 09/27/18 07:25 Last Admin: 09/27/18 09:39 Dose: 7 ml Fentanyl (Sublimaze) Confirm Administered Dose 100 mcg .ROUTE .STK-MED ONE Stop: 09/27/18 07:07 Furosemide (Lasix) 20 mg PO BIDDIURETIC [facility] Last Admin: 09/27/18 15:03 Dose: Not Given Furosemide (Lasix) 20 mg IV ONETIME ONE Stop: 09/27/18 16:01 Last Admin: 09/27/18 15:08 Dose: 20 mg Furosemide (Lasix) 40 mg IVPUSH ONETIME ONE Stop: 09/29/18 22:46 Last Admin: 09/29/18 23:04 Dose: 40 mg Furosemide (Lasix) 40 mg IVPUSH ONETIME ONE Stop: 09/30/18 08:11 Last Admin: 09/30/18 08:03 Dose: 40 mg Furosemide (Lasix) 20 mg PO BIDDIURETIC [facility] Last Admin: 10/02/18 10:25 Dose: Not Given Furosemide (Lasix) 20 mg IV ONETIME ONE Stop: 10/01/18 10:01 Last Admin: 10/01/18 09:36 Dose: 20 mg Furosemide (Lasix) 20 mg IVPUSH ONETIME ONE Stop: 10/01/18 18:28 Last Admin: 10/01/18 18:34 Dose: 20 mg Furosemide (Lasix) 40 mg IVPUSH ONETIME ONE Stop: 10/01/18 21:45 Last Admin: 10/01/18 22:21 Dose: 40 mg Furosemide (Lasix) 40 mg IVPUSH ONETIME ONE Stop: 10/02/18 05:01 Last Admin: 10/02/18 05:13 Dose: 40 mg Furosemide 20 mg/ Furosemide (40 mg) 60 mg IV Q8H [facility] Last Admin: 10/03/18 09:11 Dose: 60 mg Furosemide (Lasix) 40 mg IV Q8H [facility] Last Admin: 10/05/18 04:02 Dose: 40 mg Heparin Sodium (Porcine) (Heparin Lock Flush 100 Units/Ml) Confirm Administered Dose 1,500 units .ROUTE .[facility] ONE Stop: 09/27/18 07:26 Last Admin: 09/27/18 09:39 Dose: 1,500 units Dextrose/Lactated Ringer's (Dextrose 5%-Lactated Ringers) 1,000 mls @ 100 mls/ hr IV ASDIRECTED [facility] Stop: 09/26/18 20:59 Last Admin: 09/26/18 12:03 Dose: 100 mls/hr Albumin Human (Albumin 25%) 25 gm in 100 mls @ 25 mls/hr IV ONETIME ONE Stop: 09/26/18 20:59 Last Admin: 09/26/18 16:54 Dose: 25 mls/hr Multivitamins/Minerals 10 ml/Chromium/Copper/Manganese/Zinc 1 ml/ Thiamine HCl 100 mg/Dextrose/Lactated Ringer's 1,012 mls @ 100 mls/hr IV .Q10H8M [facility] Stop: 09/27/18 13:59 Last Admin: 09/27/18 11:43 Dose: 100 mls/hr Levofloxacin/Dextrose 500 mg/ (Premix) 100 mls @ 100 mls/hr IV ONETIME ONE Stop: 09/27/18 09:29 Last Admin: 09/27/18 20:47 Dose: Not Given Clindamycin Phosphate 900 mg/ (Sodium Chloride) 106 mls @ 212 mls/hr IV ONETIME ONE Stop: 09/27/18 09:59 Last Admin: 09/27/18 20:47 Dose: Not Given Lactated Ringer's (Ringers, Lactated) Confirm Administered Dose 1,000 mls @ as directed .ROUTE .[facility] ONE Stop: 09/27/18 09:48 Albumin Human (Albumin 25%) 25 gm in 100 mls @ 25 mls/hr IV Q24H [facility] Stop: 09/30/18 15:59 Last Admin: 09/30/18 12:10 Dose: 25 mls/hr Multivitamins/Minerals 10 ml/Chromium/Copper/Manganese/Seleni/Zn 1 ml/ Amino Ac/ Electrol/Dextrose/Calcium 1,011 mls @ 80 mls/hr IV .BY DURATION [facility] Stop: 09/28/18 14:59 Last Admin: 09/27/18 14:31 Dose: 80 mls/hr Amino Ac/Electrol/Dextrose/Calcium (Clinimix E 5/15) 1,000 mls @ 80 mls/hr IV .BY DURATION [facility] Stop: 09/28/18 14:59 Last Admin: 09/28/18 03:13 Dose: 80 mls/hr Fat Emulsion Intravenous (Intralipid 20%) 100 mls @ 8.3 mls/hr IV ONETIME ONE Stop: 09/28/18 04:02 Last Admin: 09/27/18 16:30 Dose: 8.3 mls/hr Sodium Chloride (Normal Saline) 1,000 mls @ 0 mls/hr IV ASDIRECTED [facility] Stop: 09/28/18 11:59 Last Admin: 09/27/18 16:36 Dose: 25 mls/hr Acetaminophen 1,000 mg/ Premix 100 mls @ 400 mls/hr IV NOW ONE Stop: 09/27/18 13:14 Last Admin: 09/27/18 12:56 Dose: 400 mls/hr Levofloxacin/Dextrose 500 mg/ (Premix) 100 mls @ 100 mls/hr IV Q24H [facility] Last Admin: 09/28/18 07:28 Dose: 100 mls/hr Clindamycin Phosphate 900 mg/ (Sodium Chloride) 106 mls @ 212 mls/hr IV Q12H [facility] Last Admin: 09/28/18 21:42 Dose: 212 mls/hr Dextrose/Sodium Chloride (Dextrose 5%-1/2 Ns) 1,000 mls @ 0 mls/hr IV ASDIRECTED [facility] Last Admin: 10/01/18 15:04 Dose: 25 mls/hr Magnesium Sulfate 2 gm/ Premix 50 mls @ 25 mls/hr IV Q6H [facility] Stop: 10/01/18 05:59 Last Admin: 10/01/18 03:28 Dose: 25 mls/hr Albumin Human (Albumin 25%) 25 gm in 100 mls @ 25 mls/hr IV Q24H [facility] Stop: 09/30/18 19:59 Last Admin: 09/30/18 16:39 Dose: 25 mls/hr Multivitamins/Minerals 10 ml/Chromium/Copper/Manganese/Seleni/Zn 1 ml/ Amino Ac/ Electrol/Dextrose/Calcium 1,011 mls @ 80 mls/hr IV .BY DURATION [facility] Stop: 09/30/18 17:15 Last Admin: 09/29/18 16:05 Dose: 80 mls/hr Amino Ac/Electrol/Dextrose/Calcium (Clinimix E 5/15) 1,000 mls @ 80 mls/hr IV .BY DURATION [facility] Stop: 09/30/18 17:15 Last Admin: 09/30/18 05:54 Dose: 80 mls/hr Fat Emulsion Intravenous (Intralipid 20%) 100 mls @ 9 mls/hr IV ONETIME ONE Stop: 09/29/18 05:06 Last Admin: 09/28/18 17:39 Dose: 9 mls/hr Potassium Phosphate 15 mmole/ (Sodium Chloride) 105 mls @ 50 mls/hr IV Q2H [facility] Stop: 09/30/18 15:59 Last Admin: 09/30/18 14:32 Dose: 50 mls/hr Multivitamins/Minerals 10 ml/Chromium/Copper/Manganese/Seleni/Zn 1 ml/ Amino Ac/ Electrol/Dextrose/Calcium 1,011 mls @ 60 mls/hr IV .BY DURATION [facility] Stop: 10/02/18 20:00 Last Infusion: 10/02/18 09:00 Dose: 40 mls/hr Amino Ac/Electrol/Dextrose/Calcium (Clinimix E 5/15) 1,000 mls @ 60 mls/hr IV .BY DURATION [facility] Stop: 10/02/18 20:00 Last Admin: 10/01/18 13:24 Dose: 60 mls/hr Albumin Human (Albumin 25%) 25 gm in 100 mls @ 25 mls/hr IV Q24H [facility] Stop: 10/03/18 15:59 Last Admin: 10/01/18 12:18 Dose: 25 mls/hr Albumin Human (Albumin 25%) 25 gm in 100 mls @ 25 mls/hr IV Q24H [facility] Stop: 10/03/18 19:59 Last Admin: 10/01/18 16:38 Dose: 25 mls/hr Fat Emulsion Intravenous (Intralipid 20%) 250 mls @ 21 mls/hr IV ONETIME ONE Stop: 10/02/18 05:54 Last Admin: 10/01/18 17:31 Dose: 21 mls/hr Fat Emulsion Intravenous (Intralipid 20%) 250 mls @ 21 mls/hr IV Q24H [facility] Potassium Chloride 20 meq/Lidocaine HCl 2 ml/ Sodium Chloride 112 mls @ 50 mls/ hr IV Q2H [facility] Stop: 10/02/18 07:29 Last Admin: 10/02/18 06:32 Dose: Not Given Potassium Chloride 40 meq/ (Premix) 100 mls @ 25 mls/hr IV ONETIME ONE Stop: 10/02/18 07:30 Last Admin: 10/02/18 03:50 Dose: 25 mls/hr Potassium Chloride (Kcl 40 Meq In Water 100 Ml) Confirm Administered Dose 100 mls @ as directed .ROUTE .STK-MED ONE Stop: 10/02/18 03:50 Last Admin: 10/02/18 04:03 Dose: Not Given Potassium Phosphate 22.5 mmole (/ Sodium Chloride) 107.5 mls @ 26 mls/hr IV Q4H [facility] Stop: 10/02/18 18:29 Last Admin: 10/02/18 14:34 Dose: 26 mls/hr Multivitamins/Minerals 10 ml/Chromium/Copper/Manganese/Seleni/Zn 1 ml/ Amino Ac/ Electrol/Dextrose/Calcium 1,011 mls @ 40 mls/hr IV .BY DURATION [facility] Stop: 10/03/18 23:30 Last Admin: 10/03/18 05:34 Dose: 40 mls/hr Amino Ac/Electrol/Dextrose/Calcium (Clinimix E 5/15) 1,000 mls @ 40 mls/hr IV .BY DURATION [facility] Stop: 10/03/18 23:30 Potassium Chloride 40 meq/ (Premix) 100 mls @ 25 mls/hr IV ONETIME ONE Stop: 10/03/18 12:59 Last Admin: 10/03/18 08:20 Dose: 25 mls/hr Multivitamins/Minerals 10 ml/Chromium/Copper/Manganese/Seleni/Zn 1 ml/ Amino Ac/ Electrol/Dextrose/Calcium 1,011 mls @ 40 mls/hr IV .BY DURATION [facility] Last Admin: 10/04/18 04:56 Dose: 40 mls/hr Amino Ac/Electrol/Dextrose/Calcium (Clinimix E 5/15) 1,000 mls @ 40 mls/hr IV .BY DURATION [facility] Potassium Phosphate 22.5 mmole (/ Sodium Chloride) 107.5 mls @ 27 mls/hr IV Q4H [facility] Stop: 10/04/18 17:59 Last Admin: 10/04/18 13:34 Dose: 27 mls/hr Potassium Chloride 20 meq/ (Premix) 100 mls @ 50 mls/hr IV ONETIME ONE Stop: 10/05/18 09:59 Last Admin: 10/05/18 08:01 Dose: 50 mls/hr Lidocaine HCl (Xylocaine 2% Jelly) 10 ml MUCMEM ONETIME ONE Stop: 10/01/18 21:56 Last Admin: 10/01/18 22:04 Dose: 10 ml Lidocaine/Epinephrine (Xylocaine 1% With Epinephrine 1:100,000) Confirm Administered Dose 50 ml .ROUTE .STK-MED ONE Stop: 09/27/18 07:26 Last Admin: 09/27/18 09:40 Dose: 7 ml Loperamide HCl (Imodium) 2 mg PO QID [facility] Last Admin: 10/02/18 05:13 Dose: 2 mg Midazolam HCl (Versed 1 Mg/Ml) Confirm Administered Dose 2 mg .ROUTE .STK-MED ONE Stop: 09/27/18 07:08 Non-Formulary Medication (Total Parenteral Nutrition, Central) 1,000 ml .XX .Continue Order [facility] Stop: 09/29/18 12:00 Non-Formulary Medication (Total Parenteral Nutrition, Central) 1,000 ml .XX .Continue Order [facility] Stop: 09/30/18 09:00 Pantoprazole Sodium (Protonix Iv) 40 mg IV Q24H [facility] Last Admin: 09/29/18 14:31 Dose: 40 mg Polyethylene Glycol (Miralax) 238 gm PO ONETIME ONE Stop: 09/26/18 17:01 Last Admin: 09/26/18 16:54 Dose: 238 gram Propofol (Diprivan 20 Ml) Confirm Administered Dose 200 mg .ROUTE .STK-MED ONE Stop: 09/27/18 07:07 Propofol (Diprivan 20 Ml) Confirm Administered Dose 200 mg .ROUTE .STK-MED ONE Stop: 09/27/18 09:05 - Exam Quality Assessment: Supplemental Oxygen (Noninvasive positive pressure ventilation), Urine Catheter, DVT Prophylaxis General: Alert, Oriented, Cooperative, Mild Distress Lungs: Clear to Auscultation, Normal Respiratory Effort, Decreased Breath Sounds. No: Wheezing Cardiovascular: Regular Rate, Regular Rhythm, No Murmurs GI/Abdominal Exam: Soft, Non-Tender, No Organomegaly, No Distention Back Exam: Normal Inspection, Full Range of Motion Extremities: Non-Tender, No Pedal Edema - Problem List Review Problem List Initiated/Reviewed/Updated: Yes - My Orders Last 24 Hours: My Active Orders 10/05/18 10:00 acetaZOLAMIDE [Diamox] 250 mg IVPUSH Q6H 10/05/18 20:00 Potassium Chloride Riders [KCL 40 MEQ in Water 100 ML] 40 meq Premix Bag 1 bag IV ONETIME 10/06/18 09:00 Furosemide [Lasix] 40 mg IV DAILY - Plan Plan:: ASSESSMENT AND PLAN - ARDS/Acute respiratory failure with hypoxia - further modest improvement in shortness of breath over the last 24 hours. Chest x-ray also shows improvement -insert Gibbons catheter -Furosemide 40 mg daily -Noninvasive positive pressure ventilation -Continue broad-spectrum antibiotic coverage with Zyvox, Zosyn, and levofloxacin pending culture results -minimize fluid intake beyond TPN
[2018-10-05] MEDS: Magnesium Sulfate/Water 2 GM in Premix Bag 1 BAG IV SCH ×3 (10:16→22:14)
[2018-10-05] MEDS: acetaZOLAMIDE 500 MG Vial IVPUSH SCH ×3 (10:16→22:12)
[2018-10-05] MEDS: Fluticasone Propionate Nasal Spray 16 GM Bottle NASBOTH SCH (11:12)
[2018-10-05] MEDS: Levofloxacin/Dextrose 5%-Water 750 MG in Premix Bag 1 BAG IV SCH (14:47)
[2018-10-06] MEDS: Piperacillin/Tazobactam/Dext 3.375 GM in Premix Bag 1 BAG IV SCH ×4 (03:22→22:11)
[2018-10-06] MEDS: Magnesium Sulfate/Water 2 GM in Premix Bag 1 BAG IV SCH ×4 (03:22→21:43)
--- NOTE | 2018-10-06 04:51 | CRLCR ---
HISTORY: Respiratory failure. COMPARISON: From yesterday FINDINGS: A portable erect AP view of the chest was obtained at 0406 hours. There is no change in moderate diffuse interstitial pulmonary edema, CHF versus ARDS. There is increased patchy density in the left lung base, with new blurring of the left hemidiaphragm, atelectasis versus pneumonia. Again seen is a right internal jugular central line with its tip in satisfactory position in the superior vena cava. There is no sign of pneumothorax on the right. The heart remains normal in size. The mediastinum is normal in appearance. The osseous structures are normal in appearance for the patient`s age. IMPRESSION: Stable moderate interstitial pulmonary edema, CHF versus ARDS. Increasing mild patchy left basilar infiltrate, atelectasis versus pneumonia. Dictated by William Alarcon MD @ Oct 06 2018 4:47AM Signed by Dr. William Alarcon @ Oct 06 2018 4:49AM
[2018-10-06] MEDS: Albuterol/Ipratropium 3.0-0.5 MG/3 ML Neb Soln NEB SCH ×4 (07:24→21:43)
[2018-10-06] MEDS: Potassium Phosphates 20 MMOLE in Sodium Chloride 0.9% 100 ML IV SCH ×3 (07:53→15:19)
[2018-10-06] MEDS: Pantoprazole 40 MG Tab.CR PO SCH (07:54)
[2018-10-06] MEDS: Linezolid 600 MG in Premix Bag 1 BAG IV SCH ×2 (07:54→21:43)
[2018-10-06] MEDS: Levothyroxine 100 MCG Tab PO SCH (07:54)
[2018-10-06] MEDS: Aspirin 81 MG Tab.EC PO SCH (08:06)
[2018-10-06] MEDS: Loratadine 10 MG Tab.DIS PO SCH (08:06)
[2018-10-06] MEDS: Lactobacillus Rhamnosus GG (Probiotic) Cap PO SCH ×2 (08:06→21:46)
[2018-10-06] MEDS: Fluticasone Propionate Nasal Spray 16 GM Bottle NASBOTH SCH (08:06)
[2018-10-06] MEDS ORDERED: Furosemide 40 MG/4 ML VIAL IV SCH (09:00)
[2018-10-06] MEDS: acetaZOLAMIDE 500 MG Vial IVPUSH SCH ×2 (09:55→21:46)
[2018-10-06] MEDS ORDERED: Potassium Chloride 20 MEQ Tab.ER PO ONE ×3 (10:00→21:00)
--- NOTE | 2018-10-06 11:01 | PCM.PN ---
- General Info Date of Service: 10/06/18 Subjective Update: Mr. Griffith is noted further improvement in his shortness of breath over the last 24 hours. Chest x-ray again today show some modest clearing of bilateral infiltrates/fluid. He has remained hemodynamically stable with no significant temperature elevations. FiO2 is been tapered further, continues to require use of noninvasive positive pressure ventilation. Functional Status: Reports: Pain Controlled - Review of Systems General: Reports: Weakness. Denies: Fever, Chills Pulmonary: Reports: No Symptoms Cardiovascular: Reports: No Symptoms Gastrointestinal: Reports: No Symptoms - Patient Data Vitals - Most Recent: Last Vital Signs Temp 98.4 F 10/06/18 08:00 Pulse 64 10/06/18 10:38 Resp 21 H 10/06/18 09:46 BP 90/44 L 10/06/18 09:46 Pulse Ox 94 L 10/06/18 10:38 Weight - Most Recent: 104 lb 11.2 oz I&O - Last 24 Hours: Intake & Output 10/05/18 10/06/18 10/06/18 22:59 06:59 14:59 Intake Total 1305 1561 Output Total 565 1425 Balance 740 136 Lab Results Last 24 Hours: Laboratory Results - last 24 hr 10/02/18 10/06/18 10/06/18 Range/Units 02:40 04:50 04:50 WBC 3.3 L (4.5-11.0) K/uL RBC 2.76 L (4.30-5.90) M/uL Hgb 8.4 L (12.0-15.0) g/dL Hct 26.0 L (40.0-54.0) % MCV 94 (80-98) fL MCH 30 (27-31) pg MCHC 32 (32-36) % Plt Count 62 L (150-400) K/uL Sodium 139 L (140-148) mmol/L Potassium 2.9 L* (3.6-5.2) mmol/L Chloride 102 (100-108) mmol/L Carbon Dioxide 31 (21-32) mmol/L Anion Gap 8.9 (5.0-14.0) mmol/L BUN 38 H (7-18) mg/dL Creatinine 1.0 (0.8-1.3) mg/dL Est Cr Clr Drug Dosing TNP Estimated GFR (MDRD) > 60 (>60) Glucose 98 (74-106) mg/dL Calcium 8.4 L (8.5-10.1) mg/dL Phosphorus 3.4 (2.5-4.9) mg/dL Total Bilirubin 1.7 H (0.2-1.0) mg/dL AST 149 H (15-37) U/L ALT 53 (12-78) U/L Alkaline Phosphatase 134 H (46-116) U/L NT-Pro-B Natriuret Pep 238 H (5-125) pg/mL Total Protein 4.4 L (6.4-8.2) g/dL Albumin 2.0 L (3.4-5.0) g/dL Globulin 2.4 (2.3-3.5) g/dL Albumin/Globulin Ratio 0.8 L (1.2-2.2) Crossmatch See Detail [facility] Results Last 24 Hours: Microbiology 10/03/18 04:10 Gram Stain - Final Sputum - Expectorated Respiratory Culture - Preliminary NORMAL RESPIRATORY LEIDA 1 DAY Med Orders - Current: Current Medications Acetaminophen (Tylenol) 650 mg PO Q4H PRN PRN Reason: ANALGESIA/FEVER Last Admin: 10/01/18 22:01 Dose: 650 mg Acetaminophen (Tylenol) 650 mg RECTAL Q4H PRN PRN Reason: ANALGESIA/FEVER Acetazolamide (Diamox) 250 mg IVPUSH Q12H [facility] Stop: 10/06/18 22:01 Last Admin: 10/06/18 09:55 Dose: 250 mg Albuterol (Proventil Neb Soln) 2.5 mg NEB Q2H PRN PRN Reason: Shortness of Breath Albuterol/Ipratropium (Duoneb 3.0-0.5 Mg/3 Ml) 3 ml NEB QIDRT [facility] Last Admin: 10/06/18 10:36 Dose: 3 ml Aspirin (Halfprin) 81 mg PO DAILY [facility] Last Admin: 10/06/18 08:06 Dose: 81 mg Benzocaine/Menthol (Cepacol Sore Throat) 1 lozenge MUCMEM 6XDAY PRN PRN Reason: Sore Throat Last Admin: 09/27/18 15:32 Dose: 1 john Fluticasone Propionate (Flonase) 0 gm NASBOTH DAILY [facility] Last Admin: 10/06/18 08:06 Dose: 1 spray Furosemide (Lasix) 40 mg IV DAILY [facility] Last Admin: 10/06/18 09:37 Dose: 40 mg Heparin Sodium (Porcine) (Heparin Lock Flush 100 Units/Ml) 250 units 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 Last Admin: 10/02/18 14:24 Dose: 250 units Linezolid 600 mg/ Premix 300 mls @ 300 mls/hr IV Q12H [facility] Last Admin: 10/06/18 07:54 Dose: 300 mls/hr Piperacillin/Tazobactam/ (Dextrose 3.375 gm/ Premix) 50 mls @ 100 mls/hr IV Q6H [facility] Last Admin: 10/06/18 09:22 Dose: 100 mls/hr Levofloxacin/Dextrose 750 mg/ (Premix) 150 mls @ 100 mls/hr IV Q24H [facility] Last Admin: 10/05/18 14:47 Dose: 100 mls/hr Magnesium Sulfate 2 gm/ Premix 50 mls @ 25 mls/hr IV Q6H [facility] Stop: 10/07/18 05:59 Last Admin: 10/06/18 09:23 Dose: 25 mls/hr Multivitamins/Minerals 10 ml/Chromium/Copper/Manganese/Seleni/Zn 1 ml/ Amino Ac/ Electrol/Dextrose/Calcium 1,011 mls @ 60 mls/hr IV .BY DURATION [facility] Stop: 10/06/18 13:55 Amino Ac/Electrol/Dextrose/Calcium (Clinimix E 5/15) 1,000 mls @ 60 mls/hr IV .BY DURATION [facility] Stop: 10/06/18 13:55 Last Admin: 10/06/18 00:34 Dose: 60 mls/hr Potassium Phosphate 20 mmole/ (Sodium Chloride) 106.6667 mls @ 35 mls/hr IV Q3H [facility] Stop: 10/06/18 16:59 Last Admin: 10/06/18 07:53 Dose: 35 mls/hr Multivitamins/Minerals 10 ml/Chromium/Copper/Manganese/Seleni/Zn 1 ml/ Amino Ac/ Electrol/Dextrose/Calcium 1,011 mls @ 60 mls/hr IV .BY DURATION [facility] Amino Ac/Electrol/Dextrose/Calcium (Clinimix E 5/15) 1,000 mls @ 60 mls/hr IV .BY DURATION [facility] Lactobacillus Rhamnosus (Culturelle) 1 cap PO BID [facility] Last Admin: 10/06/18 08:06 Dose: 1 cap Levothyroxine Sodium (Synthroid) 100 mcg PO ACBREAKFAST [facility] Last Admin: 10/06/18 07:54 Dose: 100 mcg Loperamide HCl (Imodium) 2 mg PO QID PRN PRN Reason: DIARRHEA Loratadine (Claritin Reditabs) 10 mg PO DAILY [facility] Last Admin: 10/06/18 08:06 Dose: 10 mg Lorazepam (Ativan) 0.5 mg IVPUSH Q4H PRN PRN Reason: Anxiety Morphine Sulfate (Morphine) 4 mg IVPUSH Q2H PRN PRN Reason: air hunger/chest tightness Pantoprazole Sodium (Protonix) 40 mg PO ACBREAKFAST [facility] Last Admin: 10/06/18 07:54 Dose: 40 mg Sodium Chloride (Saline Flush) 5 ml IV 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 Last Admin: 10/02/18 18:57 Dose: 5 ml Tramadol HCl (Ultram) 50 mg PO Q4H PRN PRN Reason: Pain Last Admin: 09/27/18 15:17 Dose: 50 mg Discontinued Medications Acetazolamide (Diamox) 250 mg IVPUSH Q6H [facility] Stop: 10/05/18 22:01 Last Admin: 10/05/18 22:12 Dose: 250 mg Albuterol/Ipratropium (Duoneb 3.0-0.5 Mg/3 Ml) 3 ml NEB Q6H [facility] Last Admin: 09/29/18 19:53 Dose: 3 ml Albuterol/Ipratropium (Duoneb 3.0-0.5 Mg/3 Ml) 3 ml NEB Q2H PRN PRN Reason: shortness of breath Last Admin: 10/01/18 17:31 Dose: 3 ml Bupivacaine HCl (Marcaine 0.5%) Confirm Administered Dose 50 ml .ROUTE .STK-MED ONE Stop: 09/27/18 07:25 Last Admin: 09/27/18 09:39 Dose: 7 ml Fentanyl (Sublimaze) Confirm Administered Dose 100 mcg .ROUTE .STK-MED ONE Stop: 09/27/18 07:07 Furosemide (Lasix) 20 mg PO BIDDIURETIC [facility] Last Admin: 09/27/18 15:03 Dose: Not Given Furosemide (Lasix) 20 mg IV ONETIME ONE Stop: 09/27/18 16:01 Last Admin: 09/27/18 15:08 Dose: 20 mg Furosemide (Lasix) 40 mg IVPUSH ONETIME ONE Stop: 09/29/18 22:46 Last Admin: 09/29/18 23:04 Dose: 40 mg Furosemide (Lasix) 40 mg IVPUSH ONETIME ONE Stop: 09/30/18 08:11 Last Admin: 09/30/18 08:03 Dose: 40 mg Furosemide (Lasix) 20 mg PO BIDDIURETIC ELYSE Last Admin: 10/02/18 10:25 Dose: Not Given Furosemide (Lasix) 20 mg IV ONETIME ONE Stop: 10/01/18 10:01 Last Admin: 10/01/18 09:36 Dose: 20 mg Furosemide (Lasix) 20 mg IVPUSH ONETIME ONE Stop: 10/01/18 18:28 Last Admin: 10/01/18 18:34 Dose: 20 mg Furosemide (Lasix) 40 mg IVPUSH ONETIME ONE Stop: 10/01/18 21:45 Last Admin: 10/01/18 22:21 Dose: 40 mg Furosemide (Lasix) 40 mg IVPUSH ONETIME ONE Stop: 10/02/18 05:01 Last Admin: 10/02/18 05:13 Dose: 40 mg Furosemide 20 mg/ Furosemide (40 mg) 60 mg IV Q8H [facility] Last Admin: 10/03/18 09:11 Dose: 60 mg Furosemide (Lasix) 40 mg IV Q8H [facility] Last Admin: 10/05/18 04:02 Dose: 40 mg Heparin Sodium (Porcine) (Heparin Lock Flush 100 Units/Ml) Confirm Administered Dose 1,500 units .ROUTE .STK-MED ONE Stop: 09/27/18 07:26 Last Admin: 09/27/18 09:39 Dose: 1,500 units Dextrose/Lactated Ringer's (Dextrose 5%-Lactated Ringers) 1,000 mls @ 100 mls/ hr IV ASDIRECTED [facility] Stop: 09/26/18 20:59 Last Admin: 09/26/18 12:03 Dose: 100 mls/hr Albumin Human (Albumin 25%) 25 gm in 100 mls @ 25 mls/hr IV ONETIME ONE Stop: 09/26/18 20:59 Last Admin: 09/26/18 16:54 Dose: 25 mls/hr Multivitamins/Minerals 10 ml/Chromium/Copper/Manganese/Zinc 1 ml/ Thiamine HCl 100 mg/Dextrose/Lactated Ringer's 1,012 mls @ 100 mls/hr IV .Q10H8M [facility] Stop: 09/27/18 13:59 Last Admin: 09/27/18 11:43 Dose: 100 mls/hr Levofloxacin/Dextrose 500 mg/ (Premix) 100 mls @ 100 mls/hr IV ONETIME ONE Stop: 09/27/18 09:29 Last Admin: 09/27/18 20:47 Dose: Not Given Clindamycin Phosphate 900 mg/ (Sodium Chloride) 106 mls @ 212 mls/hr IV ONETIME ONE Stop: 09/27/18 09:59 Last Admin: 09/27/18 20:47 Dose: Not Given Lactated Ringer's (Ringers, Lactated) Confirm Administered Dose 1,000 mls @ as directed .ROUTE .[facility]-MED ONE Stop: 09/27/18 09:48 Albumin Human (Albumin 25%) 25 gm in 100 mls @ 25 mls/hr IV Q24H [facility] Stop: 09/30/18 15:59 Last Admin: 09/30/18 12:10 Dose: 25 mls/hr Multivitamins/Minerals 10 ml/Chromium/Copper/Manganese/Seleni/Zn 1 ml/ Amino Ac/ Electrol/Dextrose/Calcium 1,011 mls @ 80 mls/hr IV .BY DURATION [facility] Stop: 09/28/18 14:59 Last Admin: 09/27/18 14:31 Dose: 80 mls/hr Amino Ac/Electrol/Dextrose/Calcium (Clinimix E 5/15) 1,000 mls @ 80 mls/hr IV .BY DURATION [facility] Stop: 09/28/18 14:59 Last Admin: 09/28/18 03:13 Dose: 80 mls/hr Fat Emulsion Intravenous (Intralipid 20%) 100 mls @ 8.3 mls/hr IV ONETIME ONE Stop: 09/28/18 04:02 Last Admin: 09/27/18 16:30 Dose: 8.3 mls/hr Sodium Chloride (Normal Saline) 1,000 mls @ 0 mls/hr IV ASDIRECTED [facility] Stop: 09/28/18 11:59 Last Admin: 09/27/18 16:36 Dose: 25 mls/hr Acetaminophen 1,000 mg/ Premix 100 mls @ 400 mls/hr IV NOW ONE Stop: 09/27/18 13:14 Last Admin: 09/27/18 12:56 Dose: 400 mls/hr Levofloxacin/Dextrose 500 mg/ (Premix) 100 mls @ 100 mls/hr IV Q24H [facility] Last Admin: 09/28/18 07:28 Dose: 100 mls/hr Clindamycin Phosphate 900 mg/ (Sodium Chloride) 106 mls @ 212 mls/hr IV Q12H [facility] Last Admin: 09/28/18 21:42 Dose: 212 mls/hr Dextrose/Sodium Chloride (Dextrose 5%-1/2 Ns) 1,000 mls @ 0 mls/hr IV ASDIRECTED [facility] Last Admin: 10/01/18 15:04 Dose: 25 mls/hr Magnesium Sulfate 2 gm/ Premix 50 mls @ 25 mls/hr IV Q6H [facility] Stop: 10/01/18 05:59 Last Admin: 10/01/18 03:28 Dose: 25 mls/hr Albumin Human (Albumin 25%) 25 gm in 100 mls @ 25 mls/hr IV Q24H [facility] Stop: 09/30/18 19:59 Last Admin: 09/30/18 16:39 Dose: 25 mls/hr Multivitamins/Minerals 10 ml/Chromium/Copper/Manganese/Seleni/Zn 1 ml/ Amino Ac/ Electrol/Dextrose/Calcium 1,011 mls @ 80 mls/hr IV .BY DURATION [facility] Stop: 09/30/18 17:15 Last Admin: 09/29/18 16:05 Dose: 80 mls/hr Amino Ac/Electrol/Dextrose/Calcium (Clinimix E 5/15) 1,000 mls @ 80 mls/hr IV .BY DURATION [facility] Stop: 09/30/18 17:15 Last Admin: 09/30/18 05:54 Dose: 80 mls/hr Fat Emulsion Intravenous (Intralipid 20%) 100 mls @ 9 mls/hr IV ONETIME ONE Stop: 09/29/18 05:06 Last Admin: 09/28/18 17:39 Dose: 9 mls/hr Potassium Phosphate 15 mmole/ (Sodium Chloride) 105 mls @ 50 mls/hr IV Q2H [facility] Stop: 09/30/18 15:59 Last Admin: 09/30/18 14:32 Dose: 50 mls/hr Multivitamins/Minerals 10 ml/Chromium/Copper/Manganese/Seleni/Zn 1 ml/ Amino Ac/ Electrol/Dextrose/Calcium 1,011 mls @ 60 mls/hr IV .BY DURATION [facility] Stop: 10/02/18 20:00 Last Infusion: 10/02/18 09:00 Dose: 40 mls/hr Amino Ac/Electrol/Dextrose/Calcium (Clinimix E 01/11) 1,000 mls @ 60 mls/hr IV .BY DURATION [facility] Stop: 10/02/18 20:00 Last Admin: 10/01/18 13:24 Dose: 60 mls/hr Albumin Human (Albumin 25%) 25 gm in 100 mls @ 25 mls/hr IV Q24H [facility] Stop: 10/03/18 15:59 Last Admin: 10/01/18 12:18 Dose: 25 mls/hr Albumin Human (Albumin 25%) 25 gm in 100 mls @ 25 mls/hr IV Q24H [facility] Stop: 10/03/18 19:59 Last Admin: 10/01/18 16:38 Dose: 25 mls/hr Fat Emulsion Intravenous (Intralipid 20%) 250 mls @ 21 mls/hr IV ONETIME ONE Stop: 10/02/18 05:54 Last Admin: 10/01/18 17:31 Dose: 21 mls/hr Fat Emulsion Intravenous (Intralipid 20%) 250 mls @ 21 mls/hr IV Q24H [facility] Potassium Chloride 20 meq/Lidocaine HCl 2 ml/ Sodium Chloride 112 mls @ 50 mls/ hr IV Q2H [facility] Stop: 10/02/18 07:29 Last Admin: 10/02/18 06:32 Dose: Not Given Potassium Chloride 40 meq/ (Premix) 100 mls @ 25 mls/hr IV ONETIME ONE Stop: 10/02/18 07:30 Last Admin: 10/02/18 03:50 Dose: 25 mls/hr Potassium Chloride (Kcl 40 Meq In Water 100 Ml) Confirm Administered Dose 100 mls @ as directed .ROUTE .STK-MED ONE Stop: 10/02/18 03:50 Last Admin: 10/02/18 04:03 Dose: Not Given Potassium Phosphate 22.5 mmole (/ Sodium Chloride) 107.5 mls @ 26 mls/hr IV Q4H [facility] Stop: 10/02/18 18:29 Last Admin: 10/02/18 14:34 Dose: 26 mls/hr Multivitamins/Minerals 10 ml/Chromium/Copper/Manganese/Seleni/Zn 1 ml/ Amino Ac/ Electrol/Dextrose/Calcium 1,011 mls @ 40 mls/hr IV .BY DURATION [facility] Stop: 10/03/18 23:30 Last Admin: 10/03/18 05:34 Dose: 40 mls/hr Amino Ac/Electrol/Dextrose/Calcium (Clinimix E 5/15) 1,000 mls @ 40 mls/hr IV .BY DURATION [facility] Stop: 10/03/18 23:30 Potassium Chloride 40 meq/ (Premix) 100 mls @ 25 mls/hr IV ONETIME ONE Stop: 10/03/18 12:59 Last Admin: 10/03/18 08:20 Dose: 25 mls/hr Multivitamins/Minerals 10 ml/Chromium/Copper/Manganese/Seleni/Zn 1 ml/ Amino Ac/ Electrol/Dextrose/Calcium 1,011 mls @ 40 mls/hr IV .BY DURATION [facility] Last Admin: 10/04/18 04:56 Dose: 40 mls/hr Amino Ac/Electrol/Dextrose/Calcium (Clinimix E 5/15) 1,000 mls @ 40 mls/hr IV .BY DURATION [facility] Potassium Phosphate 22.5 mmole (/ Sodium Chloride) 107.5 mls @ 27 mls/hr IV Q4H [facility] Stop: 10/04/18 17:59 Last Admin: 10/04/18 13:34 Dose: 27 mls/hr Multivitamins/Minerals 10 ml/Chromium/Copper/Manganese/Seleni/Zn 1 ml/ Amino Ac/ Electrol/Dextrose/Calcium 1,011 mls @ 40 mls/hr IV .BY DURATION [facility] Stop: 10/05/18 21:59 Last Admin: 10/05/18 04:44 Dose: 40 mls/hr Amino Ac/Electrol/Dextrose/Calcium (Clinimix E /15) 1,000 mls @ 40 mls/hr IV .BY DURATION [facility] Stop: 10/05/18 21:59 Potassium Chloride 20 meq/ (Premix) 100 mls @ 50 mls/hr IV ONETIME ONE Stop: 10/05/18 09:59 Last Admin: 10/05/18 08:01 Dose: 50 mls/hr Potassium Chloride 40 meq/ (Premix) 100 mls @ 25 mls/hr IV ONETIME ONE Stop: 10/05/18 13:59 Last Admin: 10/05/18 10:16 Dose: 25 mls/hr Potassium Chloride 40 meq/ (Premix) 100 mls @ 25 mls/hr IV ONETIME ONE Stop: 10/05/18 23:59 Last Admin: 10/05/18 20:05 Dose: 25 mls/hr Lidocaine HCl (Xylocaine 2% Jelly) 10 ml MUCMEM ONETIME ONE Stop: 10/01/18 21:56 Last Admin: 10/01/18 22:04 Dose: 10 ml Lidocaine/Epinephrine (Xylocaine 1% With Epinephrine 1:100,000) Confirm Administered Dose 50 ml .ROUTE .STK-MED ONE Stop: 09/27/18 07:26 Last Admin: 09/27/18 09:40 Dose: 7 ml Loperamide HCl (Imodium) 2 mg PO QID [facility] Last Admin: 10/02/18 05:13 Dose: 2 mg Midazolam HCl (Versed 1 Mg/Ml) Confirm Administered Dose 2 mg .ROUTE .STK-MED ONE Stop: 09/27/18 07:08 Non-Formulary Medication (Total Parenteral Nutrition, Central) 1,000 ml .XX .Continue Order [facility] Stop: 09/29/18 12:00 Non-Formulary Medication (Total Parenteral Nutrition, Central) 1,000 ml .XX .Continue Order [facility] Stop: 09/30/18 09:00 Pantoprazole Sodium (Protonix Iv) 40 mg IV Q24H [facility] Last Admin: 09/29/18 14:31 Dose: 40 mg Polyethylene Glycol (Miralax) 238 gm PO ONETIME ONE Stop: 09/26/18 17:01 Last Admin: 09/26/18 16:54 Dose: 238 gram Potassium Chloride (Klor-Con M20) 40 meq PO ONETIME ONE Stop: 10/06/18 10:01 Last Admin: 10/06/18 09:55 Dose: 40 meq Propofol (Diprivan 20 Ml) Confirm Administered Dose 200 mg .ROUTE .STK-MED ONE Stop: 09/27/18 07:07 Propofol (Diprivan 20 Ml) Confirm Administered Dose 200 mg .ROUTE .STK-MED ONE Stop: 09/27/18 09:05 - Exam Quality Assessment: Supplemental Oxygen (Noninvasive positive pressure ventilation), Urine Catheter, DVT Prophylaxis General: Alert, Oriented, Cooperative, Mild Distress Lungs: Clear to Auscultation, Normal Respiratory Effort, Decreased Breath Sounds. No: Wheezing Cardiovascular: Regular Rate, Regular Rhythm, No Murmurs GI/Abdominal Exam: Soft, Non-Tender, No Organomegaly, No Distention Extremities: Non-Tender, No Pedal Edema - Problem List Review Problem List Initiated/Reviewed/Updated: Yes - My Orders Last 24 Hours: My Active Orders 10/05/18 10:30 Fluticasone Propionate [Flonase] See Dose Instructions NASBOTH DAILY 10/06/18 09:00 Furosemide [Lasix] 40 mg IV DAILY 10/06/18 10:00 acetaZOLAMIDE [Diamox] 250 mg IVPUSH Q12H 10/06/18 17:00 POTASSIUM,K [CHEM] Stat - Plan Plan:: ASSESSMENT AND PLAN - ARDS/Acute respiratory failure with hypoxia - further modest improvement in shortness of breath over the last 24 hours. Chest x-ray also shows improvement -Discontinue Gibbons catheter -Furosemide 20 mg daily -Noninvasive positive pressure ventilation -Continue broad-spectrum antibiotic coverage with Zyvox, Zosyn, and levofloxacin pending culture results -minimize fluid intake beyond TPN
[2018-10-06] MEDS: Levofloxacin/Dextrose 5%-Water 750 MG in Premix Bag 1 BAG IV SCH (15:19)
[2018-10-06] MEDS: 1: AA 5%/Calcium/D15W/Lytes 1,000 ML with MVI, Adult with Vitamin K 10 ML, Chromium/Copp IV SCH ×3 (16:55)
[2018-10-06] MEDS: LORazepam 2 MG/ML SDV IVPUSH PRN (21:53)
[2018-10-06] MEDS: Loperamide 2 MG Cap PO PRN (21:53)
[2018-10-07] MEDS: Piperacillin/Tazobactam/Dext 3.375 GM in Premix Bag 1 BAG IV SCH (04:13)
[2018-10-07] MEDS: LORazepam 2 MG/ML SDV IVPUSH PRN (04:13)
[2018-10-07] MEDS: Magnesium Sulfate/Water 2 GM in Premix Bag 1 BAG IV SCH (04:14)
[2018-10-07] MEDS: Albuterol/Ipratropium 3.0-0.5 MG/3 ML Neb Soln NEB SCH ×4 (07:14→21:25)
[2018-10-07] MEDS: Potassium Phosphates 20 MMOLE in Sodium Chloride 0.9% 100 ML IV SCH ×3 (07:59→14:29)
[2018-10-07] MEDS: Linezolid 600 MG in Premix Bag 1 BAG IV SCH (08:06)
[2018-10-07] MEDS: Pantoprazole 40 MG Tab.CR PO SCH (08:09)
[2018-10-07] MEDS: Aspirin 81 MG Tab.EC PO SCH (08:09)
[2018-10-07] MEDS: Lactobacillus Rhamnosus GG (Probiotic) Cap PO SCH ×3 (08:09→22:37)
[2018-10-07] MEDS: Levothyroxine 100 MCG Tab PO SCH (08:09)
[2018-10-07] MEDS: Loratadine 10 MG Tab.DIS PO SCH (08:09)
[2018-10-07] MEDS ORDERED: Potassium Chloride 20 MEQ Tab.ER PO ONE ×2 (08:45→12:00)
[2018-10-07] MEDS ORDERED: Furosemide 20 MG/2 ML VIAL IV SCH (09:00)
[2018-10-07] MEDS: 1: AA 5%/Calcium/D15W/Lytes 1,000 ML with MVI, Adult with Vitamin K 10 ML, Chromium/Copp IV SCH ×3 (10:18)
[2018-10-07] MEDS ORDERED: Haloperidol Lactate 5 MG/ML SDV IVPUSH PRN (10:47)
--- NOTE | 2018-10-07 10:55 | PCM.PN ---
- General Info Date of Service: 10/07/18 Subjective Update: Mr. Griffith has been stable from a respiratory standpoint since yesterday. During the night he has developed an agitated delirium with increased confusion and mild agitation. Because of confusion and he is unable to provide information concerning symptoms or review systems this morning. Vital signs have been stable and he has remained afebrile. Tolerating slow decrease in FiO2 with noninvasive positive pressure ventilation. - Patient Data Vitals - Most Recent: Last Vital Signs Temp 96.9 F 10/07/18 08:00 Pulse 56 L 10/07/18 10:45 Resp 15 10/07/18 10:00 BP 116/63 10/07/18 10:00 Pulse Ox 99 10/07/18 10:00 Weight - Most Recent: 107 lb 14.4 oz I&O - Last 24 Hours: Intake & Output 10/06/18 10/07/18 10/07/18 22:59 06:59 14:59 Intake Total 800 1620 Output Total 900 600 Balance -100 -600 1620 Lab Results Last 24 Hours: Laboratory Results - last 24 hr 10/06/18 10/07/18 10/07/18 Range/Units 16:50 04:20 04:20 WBC 3.1 L (4.5-11.0) K/uL RBC 2.71 L (4.30-5.90) M/uL Hgb 8.2 L (12.0-15.0) g/dL Hct 25.7 L (40.0-54.0) % MCV 95 (80-98) fL MCH 30 (27-31) pg MCHC 32 (32-36) % Plt Count 52 L (150-400) K/uL Sodium 141 (140-148) mmol/L Potassium 3.4 L 3.0 L (3.6-5.2) mmol/L Chloride 106 (100-108) mmol/L Carbon Dioxide 29 (21-32) mmol/L Anion Gap 9.0 (5.0-14.0) mmol/L BUN 39 H (7-18) mg/dL Creatinine 0.9 (0.8-1.3) mg/dL Est Cr Clr Drug Dosing 60.10 mL/min Estimated GFR (MDRD) > 60 (>60) Glucose 124 H (74-106) mg/dL Calcium 8.0 L (8.5-10.1) mg/dL Phosphorus 5.1 H (2.5-4.9) mg/dL Magnesium 3.6 H (1.8-2.4) mg/dL Total Bilirubin 1.2 H (0.2-1.0) mg/dL AST 126 H (15-37) U/L ALT 57 (12-78) U/L Alkaline Phosphatase 165 H (46-116) U/L Total Protein 4.5 L (6.4-8.2) g/dL Albumin 2.0 L (3.4-5.0) g/dL Globulin 2.5 (2.3-3.5) g/dL Albumin/Globulin Ratio 0.8 L (1.2-2.2) Blood Type Gel Antibody Screen Crossmatch 10/07/18 Range/Units 06:28 WBC (4.5-11.0) K/uL RBC (4.30-5.90) M/uL Hgb (12.0-15.0) g/dL Hct (40.0-54.0) % MCV (80-98) fL MCH (27-31) pg MCHC (32-36) % Plt Count (150-400) K/uL Sodium (140-148) mmol/L Potassium (3.6-5.2) mmol/L Chloride (100-108) mmol/L Carbon Dioxide (21-32) mmol/L Anion Gap (5.0-14.0) mmol/L BUN (7-18) mg/dL Creatinine (0.8-1.3) mg/dL Est Cr Clr Drug Dosing mL/min Estimated GFR (MDRD) (>60) Glucose (74-106) mg/dL Calcium (8.5-10.1) mg/dL Phosphorus (2.5-4.9) mg/dL Magnesium (1.8-2.4) mg/dL Total Bilirubin (0.2-1.0) mg/dL AST (15-37) U/L ALT (12-78) U/L Alkaline Phosphatase (46-116) U/L Total Protein (6.4-8.2) g/dL Albumin (3.4-5.0) g/dL Globulin (2.3-3.5) g/dL Albumin/Globulin Ratio (1.2-2.2) Blood Type O POSITIVE Gel Antibody Screen Negative Crossmatch See Detail [facility] Results Last 24 Hours: Microbiology 10/03/18 04:10 Gram Stain - Final Sputum - Expectorated Respiratory Culture - Final NORMAL RESPIRATORY LEIDA 2 DAYS Med Orders - Current: Current Medications Acetaminophen (Tylenol) 650 mg PO Q4H PRN PRN Reason: ANALGESIA/FEVER Last Admin: 10/01/18 22:01 Dose: 650 mg Acetaminophen (Tylenol) 650 mg RECTAL Q4H PRN PRN Reason: ANALGESIA/FEVER Albuterol (Proventil Neb Soln) 2.5 mg NEB Q2H PRN PRN Reason: Shortness of Breath Albuterol/Ipratropium (Duoneb 3.0-0.5 Mg/3 Ml) 3 ml NEB QIDRT [facility] Last Admin: 10/07/18 10:45 Dose: 3 ml Aspirin (Halfprin) 81 mg PO DAILY [facility] Last Admin: 10/07/18 08:09 Dose: 81 mg Benzocaine/Menthol (Cepacol Sore Throat) 1 lozenge MUCMEM 6XDAY PRN PRN Reason: Sore Throat Last Admin: 09/27/18 15:32 Dose: 1 john Divalproex Sodium (Divalproex Sodium) 250 mg PO BIDMEALS [facility] Fluticasone Propionate (Flonase) 0 gm NASBOTH DAILY [facility] Last Admin: 10/06/18 08:06 Dose: 1 spray Haloperidol Lactate (Haldol) 1 mg IVPUSH Q2H PRN PRN Reason: Agitation Heparin Sodium (Porcine) (Heparin Lock Flush 100 Units/Ml) 250 units 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 Last Admin: 10/02/18 14:24 Dose: 250 units Levofloxacin/Dextrose 750 mg/ (Premix) 150 mls @ 100 mls/hr IV Q24H [facility] Last Admin: 10/06/18 15:19 Dose: 100 mls/hr Multivitamins/Minerals 10 ml/Chromium/Copper/Manganese/Seleni/Zn 1 ml/ Amino Ac/ Electrol/Dextrose/Calcium 1,011 mls @ 60 mls/hr IV .BY DURATION [facility] Last Admin: 10/06/18 16:55 Dose: 60 mls/hr Amino Ac/Electrol/Dextrose/Calcium (Clinimix E 01/11) 1,000 mls @ 60 mls/hr IV .BY DURATION [facility] Last Admin: 10/07/18 10:18 Dose: 60 mls/hr Potassium Phosphate 20 mmole/ (Sodium Chloride) 106.6667 mls @ 36 mls/hr IV Q3H [facility] Stop: 10/07/18 17:58 Last Admin: 10/07/18 07:59 Dose: 36 mls/hr Lactobacillus Rhamnosus (Culturelle) 1 cap PO BID [facility] Last Admin: 10/07/18 08:09 Dose: 1 cap Levothyroxine Sodium (Synthroid) 100 mcg PO ACBREAKFAST [facility] Last Admin: 10/07/18 08:09 Dose: 100 mcg Loperamide HCl (Imodium) 2 mg PO QID PRN PRN Reason: DIARRHEA Last Admin: 10/06/18 21:53 Dose: 2 mg Loratadine (Claritin Reditabs) 10 mg PO DAILY [facility] Last Admin: 10/07/18 08:09 Dose: 10 mg Melatonin (Melatonin) 9 mg PO BEDTIME [facility] Morphine Sulfate (Morphine) 4 mg IVPUSH Q2H PRN PRN Reason: air hunger/chest tightness Pantoprazole Sodium (Protonix) 40 mg PO ACBREAKFAST [facility] Last Admin: 10/07/18 08:09 Dose: 40 mg Potassium Chloride (Klor-Con M20) 40 meq PO ONETIME ONE Stop: 10/07/18 12:01 Sodium Chloride (Saline Flush) 5 ml IV 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 Last Admin: 10/02/18 18:57 Dose: 5 ml Tramadol HCl (Ultram) 50 mg PO Q4H PRN PRN Reason: Pain Last Admin: 09/27/18 15:17 Dose: 50 mg Discontinued Medications Acetazolamide (Diamox) 250 mg IVPUSH Q6H [facility] Stop: 10/05/18 22:01 Last Admin: 10/05/18 22:12 Dose: 250 mg Acetazolamide (Diamox) 250 mg IVPUSH Q12H [facility] Stop: 10/06/18 22:01 Last Admin: 10/06/18 21:46 Dose: 250 mg Albuterol/Ipratropium (Duoneb 3.0-0.5 Mg/3 Ml) 3 ml NEB Q6H [facility] Last Admin: 09/29/18 19:53 Dose: 3 ml Albuterol/Ipratropium (Duoneb 3.0-0.5 Mg/3 Ml) 3 ml NEB Q2H PRN PRN Reason: shortness of breath Last Admin: 10/01/18 17:31 Dose: 3 ml Bupivacaine HCl (Marcaine 0.5%) Confirm Administered Dose 50 ml .ROUTE .STK-MED ONE Stop: 09/27/18 07:25 Last Admin: 09/27/18 09:39 Dose: 7 ml Fentanyl (Sublimaze) Confirm Administered Dose 100 mcg .ROUTE .STK-MED ONE Stop: 09/27/18 07:07 Furosemide (Lasix) 20 mg PO BIDDIURETIC [facility] Last Admin: 09/27/18 15:03 Dose: Not Given Furosemide (Lasix) 20 mg IV ONETIME ONE Stop: 09/27/18 16:01 Last Admin: 09/27/18 15:08 Dose: 20 mg Furosemide (Lasix) 40 mg IVPUSH ONETIME ONE Stop: 09/29/18 22:46 Last Admin: 09/29/18 23:04 Dose: 40 mg Furosemide (Lasix) 40 mg IVPUSH ONETIME ONE Stop: 09/30/18 08:11 Last Admin: 09/30/18 08:03 Dose: 40 mg Furosemide (Lasix) 20 mg PO BIDDIURETIC [facility] Last Admin: 10/02/18 10:25 Dose: Not Given Furosemide (Lasix) 20 mg IV ONETIME ONE Stop: 10/01/18 10:01 Last Admin: 10/01/18 09:36 Dose: 20 mg Furosemide (Lasix) 20 mg IVPUSH ONETIME ONE Stop: 10/01/18 18:28 Last Admin: 10/01/18 18:34 Dose: 20 mg Furosemide (Lasix) 40 mg IVPUSH ONETIME ONE Stop: 10/01/18 21:45 Last Admin: 10/01/18 22:21 Dose: 40 mg Furosemide (Lasix) 40 mg IVPUSH ONETIME ONE Stop: 10/02/18 05:01 Last Admin: 10/02/18 05:13 Dose: 40 mg Furosemide 20 mg/ Furosemide (40 mg) 60 mg IV Q8H [facility] Last Admin: 10/03/18 09:11 Dose: 60 mg Furosemide (Lasix) 40 mg IV Q8H [facility] Last Admin: 10/05/18 04:02 Dose: 40 mg Furosemide (Lasix) 40 mg IV DAILY [facility] Last Admin: 10/06/18 09:37 Dose: 40 mg Furosemide (Lasix) 20 mg IV DAILY [facility] Heparin Sodium (Porcine) (Heparin Lock Flush 100 Units/Ml) Confirm Administered Dose 1,500 units .ROUTE .STK-MED ONE Stop: 09/27/18 07:26 Last Admin: 09/27/18 09:39 Dose: 1,500 units Dextrose/Lactated Ringer's (Dextrose 5%-Lactated Ringers) 1,000 mls @ 100 mls/ hr IV ASDIRECTED [facility] Stop: 09/26/18 20:59 Last Admin: 09/26/18 12:03 Dose: 100 mls/hr Albumin Human (Albumin 25%) 25 gm in 100 mls @ 25 mls/hr IV ONETIME ONE Stop: 09/26/18 20:59 Last Admin: 09/26/18 16:54 Dose: 25 mls/hr Multivitamins/Minerals 10 ml/Chromium/Copper/Manganese/Zinc 1 ml/ Thiamine HCl 100 mg/Dextrose/Lactated Ringer's 1,012 mls @ 100 mls/hr IV .Q10H8M [facility] Stop: 09/27/18 13:59 Last Admin: 09/27/18 11:43 Dose: 100 mls/hr Levofloxacin/Dextrose 500 mg/ (Premix) 100 mls @ 100 mls/hr IV ONETIME ONE Stop: 09/27/18 09:29 Last Admin: 09/27/18 20:47 Dose: Not Given Clindamycin Phosphate 900 mg/ (Sodium Chloride) 106 mls @ 212 mls/hr IV ONETIME ONE Stop: 09/27/18 09:59 Last Admin: 09/27/18 20:47 Dose: Not Given Lactated Ringer's (Ringers, Lactated) Confirm Administered Dose 1,000 mls @ as directed .ROUTE .ST-MED ONE Stop: 09/27/18 09:48 Albumin Human (Albumin 25%) 25 gm in 100 mls @ 25 mls/hr IV Q24H [facility] Stop: 09/30/18 15:59 Last Admin: 09/30/18 12:10 Dose: 25 mls/hr Multivitamins/Minerals 10 ml/Chromium/Copper/Manganese/Seleni/Zn 1 ml/ Amino Ac/ Electrol/Dextrose/Calcium 1,011 mls @ 80 mls/hr IV .BY DURATION [facility] Stop: 09/28/18 14:59 Last Admin: 09/27/18 14:31 Dose: 80 mls/hr Amino Ac/Electrol/Dextrose/Calcium (Clinimix E 5/15) 1,000 mls @ 80 mls/hr IV .BY DURATION [facility] Stop: 09/28/18 14:59 Last Admin: 09/28/18 03:13 Dose: 80 mls/hr Fat Emulsion Intravenous (Intralipid 20%) 100 mls @ 8.3 mls/hr IV ONETIME ONE Stop: 09/28/18 04:02 Last Admin: 09/27/18 16:30 Dose: 8.3 mls/hr Sodium Chloride (Normal Saline) 1,000 mls @ 0 mls/hr IV ASDIRECTED [facility] Stop: 09/28/18 11:59 Last Admin: 09/27/18 16:36 Dose: 25 mls/hr Acetaminophen 1,000 mg/ Premix 100 mls @ 400 mls/hr IV NOW ONE Stop: 09/27/18 13:14 Last Admin: 09/27/18 12:56 Dose: 400 mls/hr Levofloxacin/Dextrose 500 mg/ (Premix) 100 mls @ 100 mls/hr IV Q24H [facility] Last Admin: 09/28/18 07:28 Dose: 100 mls/hr Clindamycin Phosphate 900 mg/ (Sodium Chloride) 106 mls @ 212 mls/hr IV Q12H [facility] Last Admin: 09/28/18 21:42 Dose: 212 mls/hr Dextrose/Sodium Chloride (Dextrose 5%-1/2 Ns) 1,000 mls @ 0 mls/hr IV ASDIRECTED [facility] Last Admin: 10/01/18 15:04 Dose: 25 mls/hr Magnesium Sulfate 2 gm/ Premix 50 mls @ 25 mls/hr IV Q6H [facility] Stop: 10/01/18 05:59 Last Admin: 10/01/18 03:28 Dose: 25 mls/hr Albumin Human (Albumin 25%) 25 gm in 100 mls @ 25 mls/hr IV Q24H [facility] Stop: 09/30/18 19:59 Last Admin: 09/30/18 16:39 Dose: 25 mls/hr Multivitamins/Minerals 10 ml/Chromium/Copper/Manganese/Seleni/Zn 1 ml/ Amino Ac/ Electrol/Dextrose/Calcium 1,011 mls @ 80 mls/hr IV .BY DURATION [facility] Stop: 09/30/18 17:15 Last Admin: 09/29/18 16:05 Dose: 80 mls/hr Amino Ac/Electrol/Dextrose/Calcium (Clinimix E 5/15) 1,000 mls @ 80 mls/hr IV .BY DURATION [facility] Stop: 09/30/18 17:15 Last Admin: 09/30/18 05:54 Dose: 80 mls/hr Fat Emulsion Intravenous (Intralipid 20%) 100 mls @ 9 mls/hr IV ONETIME ONE Stop: 09/29/18 05:06 Last Admin: 09/28/18 17:39 Dose: 9 mls/hr Potassium Phosphate 15 mmole/ (Sodium Chloride) 105 mls @ 50 mls/hr IV Q2H [facility] Stop: 09/30/18 15:59 Last Admin: 09/30/18 14:32 Dose: 50 mls/hr Multivitamins/Minerals 10 ml/Chromium/Copper/Manganese/Seleni/Zn 1 ml/ Amino Ac/ Electrol/Dextrose/Calcium 1,011 mls @ 60 mls/hr IV .BY DURATION [facility] Stop: 10/02/18 20:00 Last Infusion: 10/02/18 09:00 Dose: 40 mls/hr Amino Ac/Electrol/Dextrose/Calcium (Clinimix E 5/15) 1,000 mls @ 60 mls/hr IV .BY DURATION [facility] Stop: 10/02/18 20:00 Last Admin: 10/01/18 13:24 Dose: 60 mls/hr Albumin Human (Albumin 25%) 25 gm in 100 mls @ 25 mls/hr IV Q24H [facility] Stop: 10/03/18 15:59 Last Admin: 10/01/18 12:18 Dose: 25 mls/hr Albumin Human (Albumin 25%) 25 gm in 100 mls @ 25 mls/hr IV Q24H [facility] Stop: 10/03/18 19:59 Last Admin: 10/01/18 16:38 Dose: 25 mls/hr Fat Emulsion Intravenous (Intralipid 20%) 250 mls @ 21 mls/hr IV ONETIME ONE Stop: 10/02/18 05:54 Last Admin: 10/01/18 17:31 Dose: 21 mls/hr Fat Emulsion Intravenous (Intralipid 20%) 250 mls @ 21 mls/hr IV Q24H [facility] Potassium Chloride 20 meq/Lidocaine HCl 2 ml/ Sodium Chloride 112 mls @ 50 mls/ hr IV Q2H [facility] Stop: 10/02/18 07:29 Last Admin: 10/02/18 06:32 Dose: Not Given Potassium Chloride 40 meq/ (Premix) 100 mls @ 25 mls/hr IV ONETIME ONE Stop: 10/02/18 07:30 Last Admin: 10/02/18 03:50 Dose: 25 mls/hr Potassium Chloride (Kcl 40 Meq In Water 100 Ml) Confirm Administered Dose 100 mls @ as directed .ROUTE .STK-MED ONE Stop: 10/02/18 03:50 Last Admin: 10/02/18 04:03 Dose: Not Given Potassium Phosphate 22.5 mmole (/ Sodium Chloride) 107.5 mls @ 26 mls/hr IV Q4H [facility] Stop: 10/02/18 18:29 Last Admin: 10/02/18 14:34 Dose: 26 mls/hr Multivitamins/Minerals 10 ml/Chromium/Copper/Manganese/Seleni/Zn 1 ml/ Amino Ac/ Electrol/Dextrose/Calcium 1,011 mls @ 40 mls/hr IV .BY DURATION [facility] Stop: 10/03/18 23:30 Last Admin: 10/03/18 05:34 Dose: 40 mls/hr Amino Ac/Electrol/Dextrose/Calcium (Clinimix E 01/11) 1,000 mls @ 40 mls/hr IV .BY DURATION [facility] Stop: 10/03/18 23:30 Potassium Chloride 40 meq/ (Premix) 100 mls @ 25 mls/hr IV ONETIME ONE Stop: 10/03/18 12:59 Last Admin: 10/03/18 08:20 Dose: 25 mls/hr Linezolid 600 mg/ Premix 300 mls @ 300 mls/hr IV Q12H [facility] Last Admin: 10/07/18 08:06 Dose: 300 mls/hr Multivitamins/Minerals 10 ml/Chromium/Copper/Manganese/Seleni/Zn 1 ml/ Amino Ac/ Electrol/Dextrose/Calcium 1,011 mls @ 40 mls/hr IV .BY DURATION [facility] Last Admin: 10/04/18 04:56 Dose: 40 mls/hr Amino Ac/Electrol/Dextrose/Calcium (Clinimix E 5/15) 1,000 mls @ 40 mls/hr IV .BY DURATION [facility] Piperacillin/Tazobactam/ (Dextrose 3.375 gm/ Premix) 50 mls @ 100 mls/hr IV Q6H [facility] Last Admin: 10/07/18 04:13 Dose: 100 mls/hr Potassium Phosphate 22.5 mmole (/ Sodium Chloride) 107.5 mls @ 27 mls/hr IV Q4H [facility] Stop: 10/04/18 17:59 Last Admin: 10/04/18 13:34 Dose: 27 mls/hr Multivitamins/Minerals 10 ml/Chromium/Copper/Manganese/Seleni/Zn 1 ml/ Amino Ac/ Electrol/Dextrose/Calcium 1,011 mls @ 40 mls/hr IV .BY DURATION [facility] Stop: 10/05/18 21:59 Last Admin: 10/05/18 04:44 Dose: 40 mls/hr Amino Ac/Electrol/Dextrose/Calcium (Clinimix E 01/11) 1,000 mls @ 40 mls/hr IV .BY DURATION [facility] Stop: 10/05/18 21:59 Potassium Chloride 20 meq/ (Premix) 100 mls @ 50 mls/hr IV ONETIME ONE Stop: 10/05/18 09:59 Last Admin: 10/05/18 08:01 Dose: 50 mls/hr Potassium Chloride 40 meq/ (Premix) 100 mls @ 25 mls/hr IV ONETIME ONE Stop: 10/05/18 13:59 Last Admin: 10/05/18 10:16 Dose: 25 mls/hr Magnesium Sulfate 2 gm/ Premix 50 mls @ 25 mls/hr IV Q6H [facility] Stop: 10/07/18 05:59 Last Admin: 10/07/18 04:14 Dose: 25 mls/hr Multivitamins/Minerals 10 ml/Chromium/Copper/Manganese/Seleni/Zn 1 ml/ Amino Ac/ Electrol/Dextrose/Calcium 1,011 mls @ 60 mls/hr IV .BY DURATION [facility] Stop: 10/06/18 13:55 Amino Ac/Electrol/Dextrose/Calcium (Clinimix E 01/11) 1,000 mls @ 60 mls/hr IV .BY DURATION [facility] Stop: 10/06/18 13:55 Last Admin: 10/06/18 00:34 Dose: 60 mls/hr Potassium Chloride 40 meq/ (Premix) 100 mls @ 25 mls/hr IV ONETIME ONE Stop: 10/05/18 23:59 Last Admin: 10/05/18 20:05 Dose: 25 mls/hr Potassium Phosphate 20 mmole/ (Sodium Chloride) 106.6667 mls @ 35 mls/hr IV Q3H [facility] Stop: 10/06/18 16:59 Last Admin: 10/06/18 15:19 Dose: 35 mls/hr Lidocaine HCl (Xylocaine 2% Jelly) 10 ml MUCMEM ONETIME ONE Stop: 10/01/18 21:56 Last Admin: 10/01/18 22:04 Dose: 10 ml Lidocaine/Epinephrine (Xylocaine 1% With Epinephrine 1:100,000) Confirm Administered Dose 50 ml .ROUTE .STK-MED ONE Stop: 09/27/18 07:26 Last Admin: 09/27/18 09:40 Dose: 7 ml Loperamide HCl (Imodium) 2 mg PO QID [facility] Last Admin: 10/02/18 05:13 Dose: 2 mg Lorazepam (Ativan) 0.5 mg IVPUSH Q4H PRN PRN Reason: Anxiety Last Admin: 10/07/18 04:13 Dose: 0.5 mg Midazolam HCl (Versed 1 Mg/Ml) Confirm Administered Dose 2 mg .ROUTE .STK-MED ONE Stop: 09/27/18 07:08 Non-Formulary Medication (Total Parenteral Nutrition, Central) 1,000 ml .XX .Continue Order [facility] Stop: 09/29/18 12:00 Non-Formulary Medication (Total Parenteral Nutrition, Central) 1,000 ml .XX .Continue Order [facility] Stop: 09/30/18 09:00 Pantoprazole Sodium (Protonix Iv) 40 mg IV Q24H [facility] Last Admin: 09/29/18 14:31 Dose: 40 mg Polyethylene Glycol (Miralax) 238 gm PO ONETIME ONE Stop: 09/26/18 17:01 Last Admin: 09/26/18 16:54 Dose: 238 gram Potassium Chloride (Klor-Con M20) 40 meq PO ONETIME ONE Stop: 10/06/18 10:01 Last Admin: 10/06/18 09:55 Dose: 40 meq Potassium Chloride (Klor-Con M20) 40 meq PO ONETIME ONE Stop: 10/06/18 17:46 Last Admin: 10/06/18 21:46 Dose: Not Given Potassium Chloride (Klor-Con M20) 40 meq PO ONETIME ONE Stop: 10/06/18 21:01 Last Admin: 10/06/18 21:46 Dose: 40 meq Potassium Chloride (Klor-Con M20) 40 meq PO ONETIME ONE Stop: 10/07/18 08:46 Last Admin: 10/07/18 09:00 Dose: 40 meq Propofol (Diprivan 20 Ml) Confirm Administered Dose 200 mg .ROUTE .STK-MED ONE Stop: 09/27/18 07:07 Propofol (Diprivan 20 Ml) Confirm Administered Dose 200 mg .ROUTE .STK-MED ONE Stop: 09/27/18 09:05 - Exam Quality Assessment: Supplemental Oxygen (BiPAP), Central Line/PICC, Urine Catheter, DVT Prophylaxis General: Alert, Oriented, Cooperative, Moderate Distress Lungs: Normal Respiratory Effort, Decreased Breath Sounds, Rales. No: Crackles , Rhonchi Cardiovascular: Regular Rate, Regular Rhythm, No Murmurs GI/Abdominal Exam: Soft, Non-Tender, No Organomegaly, No Distention Extremities: Non-Tender, No Pedal Edema - Problem List Review Problem List Initiated/Reviewed/Updated: Yes - My Orders Last 24 Hours: My Active Orders 10/06/18 11:05 Consult to Physical Therapy [PT Evaluation and Treatment] [CONS] Routine 10/07/18 10:47 Haloperidol Lactate [Haldol] 1 mg IVPUSH Q2H PRN 10/07/18 10:48 Chest 1V Frontal [CR] Urgent 10/07/18 12:00 Potassium Chloride [Klor-Con M20] 40 meq PO ONETIME ONE 10/07/18 17:00 POTASSIUM,K [CHEM] Stat Divalproex Sodium 250 mg PO BIDMEALS 10/07/18 21:00 Melatonin 9 mg PO BEDTIME 10/08/18 05:00 Chest 1V Frontal [CR] Timed - Plan Plan:: ASSESSMENT AND PLAN - ARDS/Acute respiratory failure with hypoxia - further modest improvement in shortness of breath over the last 24 hours, will tapering down on FiO2 with further improvement in breathing -Hold furosemide -Noninvasive positive pressure ventilation -Continue broad-spectrum antibiotic coverage with Zyvox, Zosyn, and levofloxacin pending culture results -minimize fluid intake beyond TPN Urinary retention-unable to tolerate removal of Gibbons catheter with significant urinary retention -Replace Gibbons catheter -Flomax 0.4 mg by mouth daily Delirium with mild agitation-likely component of ICU psychosis and sleep deprivation -Discontinue lorazepam -Melatonin 9 mg by mouth daily at bedtime -Depakote 250 mg by mouth twice a day -Haldol 1 mg IV every 2 hours as needed for agitation
[2018-10-07] MEDS ORDERED: Lidocaine 2% Jelly 10 ML Urojet MUCMEM ONE (11:30)
[2018-10-07] MEDS: Tamsulosin 0.4 MG Cap.ER PO SCH (11:48)
--- NOTE | 2018-10-07 12:05 | CRLCR ---
Indication: Respiratory failure Technique: Chest 1 view Comparison: October 06, 2008 Findings/Impression: Cardiovascular and mediastinum: Central line is unchanged. Heart size remains normal. Lungs and pleural space: Persistent ARDS pattern with prominent bilateral ill-defined infiltrates. These appear unchanged in the left lung and slightly worsened in the right lung. No effusion and no pneumothorax. Bones and soft tissues: No acute findings. Dictated by Brett Werner MD @ Oct 07 2018 12:02PM Signed by Dr. Brett Werner @ Oct 07 2018 12:03PM
[2018-10-07] MEDS: Fluticasone Propionate Nasal Spray 16 GM Bottle NASBOTH SCH (13:48)
[2018-10-07] MEDS: Levofloxacin/Dextrose 5%-Water 750 MG in Premix Bag 1 BAG IV SCH (14:29)
[2018-10-07] MEDS: Divalproex Sodium Delayed-Release 250 MG Tab.CR PO SCH (17:20)
[2018-10-07] MEDS: Sodium Chloride 0.9% 10 ML Syringe IV PRN (21:02)
[2018-10-07] MEDS: Acetaminophen 325 MG Tab PO PRN (21:25)
[2018-10-07] MEDS: Melatonin 3 MG Tab PO SCH ×2 (21:26→22:37)
[2018-10-08] MEDS: Melatonin 3 MG Tab PO SCH ×2 (00:25→22:32)
[2018-10-08] MEDS: 1: AA 5%/Calcium/D15W/Lytes 1,000 ML with MVI, Adult with Vitamin K 10 ML, Chromium/Copp IV SCH ×6 (03:02→19:49)
--- NOTE | 2018-10-08 05:29 | CRLCR ---
HISTORY: Follow up ARDS. COMPARISON: From yesterday FINDINGS: A portable erect AP view of the chest was obtained at 0502 hours. There is increasing moderate interstitial infiltrate in the left upper lobe which is probably due worsening of ARDS, although pneumonia cannot be excluded. There has been no change in moderate interstitial pulmonary edema throughout the rest of the chest, consistent with ARDS. There is no change in mild consolidation of the left lung base consistent with atelectasis. There appears to be a new small left pleural effusion. Again seen is a right internal jugular central line with its tip in satisfactory position in the superior vena cava. There is no sign of pneumothorax on the right. The heart remains normal in size. The mediastinum is normal in appearance. The osseous structures are normal in appearance for the patient`s age. IMPRESSION: Worsening moderate interstitial infiltrate in the left upper lobe, probably worsening ARDS, although cannot exclude pneumonia. No change in moderate interstitial pulmonary edema throughout the rest of the chest from ARDS. No change in mild patchy left basilar consolidation, consistent with atelectasis. New small left pleural effusion. Dictated by William Alarcon MD @ Oct 08 2018 5:24AM Signed by Dr. William Alarcon @ Oct 08 2018 5:27AM
[2018-10-08] MEDS: Sodium Chloride 0.9% 10 ML Syringe IV PRN (05:46)
[2018-10-08] MEDS: Albuterol/Ipratropium 3.0-0.5 MG/3 ML Neb Soln NEB SCH ×4 (07:21→22:32)
[2018-10-08] MEDS: Tamsulosin 0.4 MG Cap.ER PO SCH (09:10)
[2018-10-08] MEDS: Lactobacillus Rhamnosus GG (Probiotic) Cap PO SCH ×2 (09:11→22:21)
[2018-10-08] MEDS: Levothyroxine 100 MCG Tab PO SCH (09:11)
[2018-10-08] MEDS: Divalproex Sodium Delayed-Release 250 MG Tab.CR PO SCH (09:11)
[2018-10-08] MEDS: Aspirin 81 MG Tab.EC PO SCH (09:14)
[2018-10-08] MEDS: Loratadine 10 MG Tab.DIS PO SCH (09:14)
[2018-10-08] MEDS: Pantoprazole 40 MG Tab.CR PO SCH (09:14)
[2018-10-08] MEDS: Fluticasone Propionate Nasal Spray 16 GM Bottle NASBOTH SCH (09:15)
[2018-10-08] MEDS ORDERED: Sodium Chloride 0.9% 10 ML Syringe FLUSH ONE (09:50)
[2018-10-08] MEDS ORDERED: Sodium Chloride 0.9% 80 ML IV ONE (09:50)
[2018-10-08] MEDS ORDERED: Iopamidol 755 Mg/ML 100 ML Bottle IV SCH (10:00)
[2018-10-08] MEDS ORDERED: Furosemide 20 MG/2 ML VIAL IVPUSH ONE (10:09)
--- NOTE | 2018-10-08 10:18 | PCM.PN ---
- General Info Date of Service: 10/08/18 Subjective Update: Mr. Griffith has shown further modest improvement over last 24 hours with decrease in his FiO2 to 45%. Continues to require noninvasive positive pressure ventilation to maintain adequate oxygenation. He is more clear mentally with no further delirium or agitation. Chest x-ray shows stable ARDS pattern, increased infiltrate left lung. Functional Status: Reports: Pain Controlled - Review of Systems General: Reports: Weakness. Denies: Fever, Chills Pulmonary: Reports: Shortness of Breath. Denies: Pleuritic Chest Pain, Cough, Sputum, Hemoptysis, Wheezing Cardiovascular: Reports: Dyspnea on Exertion. Denies: Chest Pain, Palpitations , Orthopnea, PND, Edema Gastrointestinal: Reports: No Symptoms Neurological: Reports: Weakness. Denies: Confusion - Patient Data Vitals - Most Recent: Last Vital Signs Temp 97.6 F 10/08/18 02:00 Pulse 70 10/08/18 07:22 Resp 14 10/08/18 04:00 BP 99/55 L 10/08/18 04:00 Pulse Ox 95 10/08/18 07:22 Weight - Most Recent: 107 lb 14.4 oz I&O - Last 24 Hours: Intake & Output 10/07/18 10/08/18 10/08/18 22:59 06:59 14:59 Intake Total 1342 634 Output Total 425 750 Balance 917 -116 Lab Results Last 24 Hours: Laboratory Results - last 24 hr 10/07/18 10/08/18 10/08/18 Range/Units 17:30 05:50 05:50 WBC 3.4 L (4.5-11.0) K/uL RBC 2.59 L (4.30-5.90) M/uL Hgb 7.7 L (12.0-15.0) g/dL Hct 24.0 L (40.0-54.0) % MCV 93 (80-98) fL MCH 30 (27-31) pg MCHC 32 (32-36) % Plt Count 60 L (150-400) K/uL Sodium 145 (140-148) mmol/L Potassium 4.0 3.6 (3.6-5.2) mmol/L Chloride 112 H (100-108) mmol/L Carbon Dioxide 26 (21-32) mmol/L Anion Gap 10.6 (5.0-14.0) mmol/L BUN 40 H (7-18) mg/dL Creatinine 0.9 (0.8-1.3) mg/dL Est Cr Clr Drug Dosing 61.93 mL/min Estimated GFR (MDRD) > 60 (>60) Glucose 86 (74-106) mg/dL Calcium 8.0 L (8.5-10.1) mg/dL Phosphorus 4.9 (2.5-4.9) mg/dL Magnesium 3.0 H (1.8-2.4) mg/dL Total Bilirubin 1.0 (0.2-1.0) mg/dL AST 92 H (15-37) U/L ALT 44 (12-78) U/L Alkaline Phosphatase 174 H (46-116) U/L Total Protein 4.3 L (6.4-8.2) g/dL Albumin 1.8 L (3.4-5.0) g/dL Globulin 2.5 (2.3-3.5) g/dL Albumin/Globulin Ratio 0.7 L (1.2-2.2) [place] Results Last 24 Hours: Microbiology 10/03/18 04:10 Gram Stain - Final Sputum - Expectorated Respiratory Culture - Final NORMAL RESPIRATORY LEIDA 2 DAYS Med Orders - Current: Current Medications Acetaminophen (Tylenol) 650 mg PO Q4H PRN PRN Reason: ANALGESIA/FEVER Last Admin: 10/07/18 21:25 Dose: 650 mg Acetaminophen (Tylenol) 650 mg RECTAL Q4H PRN PRN Reason: ANALGESIA/FEVER Albuterol (Proventil Neb Soln) 2.5 mg NEB Q2H PRN PRN Reason: Shortness of Breath Albuterol/Ipratropium (Duoneb 3.0-0.5 Mg/3 Ml) 3 ml NEB QIDRT [facility] Last Admin: 10/08/18 07:21 Dose: 3 ml Aspirin (Halfprin) 81 mg PO DAILY [facility] Last Admin: 10/08/18 09:14 Dose: 81 mg Benzocaine/Menthol (Cepacol Sore Throat) 1 lozenge MUCMEM 6XDAY PRN PRN Reason: Sore Throat Last Admin: 09/27/18 15:32 Dose: 1 john Fluticasone Propionate (Flonase) 0 gm NASBOTH DAILY [facility] Last Admin: 10/08/18 09:15 Dose: 2 spray Furosemide (Lasix) 20 mg IVPUSH NOW ONE Stop: 10/08/18 10:10 Haloperidol Lactate (Haldol) 1 mg IVPUSH Q2H PRN PRN Reason: Agitation Heparin Sodium (Porcine) (Heparin Lock Flush 100 Units/Ml) 250 units 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 Last Admin: 10/08/18 05:46 Dose: 250 units Levofloxacin/Dextrose 750 mg/ (Premix) 150 mls @ 100 mls/hr IV Q24H [facility] Last Admin: 10/07/18 14:29 Dose: 100 mls/hr Multivitamins/Minerals 10 ml/Chromium/Copper/Manganese/Seleni/Zn 1 ml/ Amino Ac/ Electrol/Dextrose/Calcium 1,011 mls @ 60 mls/hr IV .BY DURATION [facility] Last Admin: 10/08/18 03:02 Dose: 60 mls/hr Amino Ac/Electrol/Dextrose/Calcium (Clinimix E 5/15) 1,000 mls @ 60 mls/hr IV .BY DURATION [facility] Last Admin: 10/07/18 10:18 Dose: 60 mls/hr Linezolid 600 mg/ Premix 300 mls @ 300 mls/hr IV Q12H [facility] Meropenem 1 gm/ Sodium (Chloride) 100 mls @ 200 mls/hr IV Q8H [facility] Iopamidol (Isovue-370 (76%)) 52 ml IV . DIRECTED [facility] Stop: 10/08/18 11:00 Lactobacillus Rhamnosus (Culturelle) 1 cap PO BID [facility] Last Admin: 10/08/18 09:11 Dose: 1 cap Levothyroxine Sodium (Synthroid) 100 mcg PO ACBREAKFAST [facility] Last Admin: 10/08/18 09:11 Dose: 100 mcg Loperamide HCl (Imodium) 2 mg PO QID PRN PRN Reason: DIARRHEA Last Admin: 10/06/18 21:53 Dose: 2 mg Loratadine (Claritin Reditabs) 10 mg PO DAILY [facility] Last Admin: 10/08/18 09:14 Dose: 10 mg Melatonin (Melatonin) 9 mg PO BEDTIME [facility] Last Admin: 10/08/18 00:25 Dose: 9 mg Morphine Sulfate (Morphine) 4 mg IVPUSH Q2H PRN PRN Reason: air hunger/chest tightness Pantoprazole Sodium (Protonix) 40 mg PO ACBREAKFAST [facility] Last Admin: 10/08/18 09:14 Dose: 40 mg Sodium Chloride (Saline Flush) 5 ml IV 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 Last Admin: 10/08/18 05:46 Dose: 5 ml Tamsulosin HCl (Flomax) 0.4 mg PO DAILY [facility] Last Admin: 10/08/18 09:10 Dose: 0.4 mg Discontinued Medications Acetazolamide (Diamox) 250 mg IVPUSH Q6H [facility] Stop: 10/05/18 22:01 Last Admin: 10/05/18 22:12 Dose: 250 mg Acetazolamide (Diamox) 250 mg IVPUSH Q12H [facility] Stop: 10/06/18 22:01 Last Admin: 10/06/18 21:46 Dose: 250 mg Albuterol/Ipratropium (Duoneb 3.0-0.5 Mg/3 Ml) 3 ml NEB Q6H [facility] Last Admin: 09/29/18 19:53 Dose: 3 ml Albuterol/Ipratropium (Duoneb 3.0-0.5 Mg/3 Ml) 3 ml NEB Q2H PRN PRN Reason: shortness of breath Last Admin: 10/01/18 17:31 Dose: 3 ml Bupivacaine HCl (Marcaine 0.5%) Confirm Administered Dose 50 ml .ROUTE .STK-MED ONE Stop: 09/27/18 07:25 Last Admin: 09/27/18 09:39 Dose: 7 ml Divalproex Sodium (Divalproex Sodium) 250 mg PO BIDMEALS [facility] Last Admin: 10/08/18 09:11 Dose: 250 mg Fentanyl (Sublimaze) Confirm Administered Dose 100 mcg .ROUTE .STK-MED ONE Stop: 09/27/18 07:07 Furosemide (Lasix) 20 mg PO BIDDIURETIC [facility] Last Admin: 09/27/18 15:03 Dose: Not Given Furosemide (Lasix) 20 mg IV ONETIME ONE Stop: 09/27/18 16:01 Last Admin: 09/27/18 15:08 Dose: 20 mg Furosemide (Lasix) 40 mg IVPUSH ONETIME ONE Stop: 09/29/18 22:46 Last Admin: 09/29/18 23:04 Dose: 40 mg Furosemide (Lasix) 40 mg IVPUSH ONETIME ONE Stop: 09/30/18 08:11 Last Admin: 09/30/18 08:03 Dose: 40 mg Furosemide (Lasix) 20 mg PO BIDDIURETIC [facility] Last Admin: 10/02/18 10:25 Dose: Not Given Furosemide (Lasix) 20 mg IV ONETIME ONE Stop: 10/01/18 10:01 Last Admin: 10/01/18 09:36 Dose: 20 mg Furosemide (Lasix) 20 mg IVPUSH ONETIME ONE Stop: 10/01/18 18:28 Last Admin: 10/01/18 18:34 Dose: 20 mg Furosemide (Lasix) 40 mg IVPUSH ONETIME ONE Stop: 10/01/18 21:45 Last Admin: 10/01/18 22:21 Dose: 40 mg Furosemide (Lasix) 40 mg IVPUSH ONETIME ONE Stop: 10/02/18 05:01 Last Admin: 10/02/18 05:13 Dose: 40 mg Furosemide 20 mg/ Furosemide (40 mg) 60 mg IV Q8H [facility] Last Admin: 10/03/18 09:11 Dose: 60 mg Furosemide (Lasix) 40 mg IV Q8H [facility] Last Admin: 10/05/18 04:02 Dose: 40 mg Furosemide (Lasix) 40 mg IV DAILY [facility] Last Admin: 10/06/18 09:37 Dose: 40 mg Furosemide (Lasix) 20 mg IV DAILY [facility] Heparin Sodium (Porcine) (Heparin Lock Flush 100 Units/Ml) Confirm Administered Dose 1,500 units .ROUTE .STK-MED ONE Stop: 09/27/18 07:26 Last Admin: 09/27/18 09:39 Dose: 1,500 units Dextrose/Lactated Ringer's (Dextrose 5%-Lactated Ringers) 1,000 mls @ 100 mls/ hr IV ASDIRECTED [facility] Stop: 09/26/18 20:59 Last Admin: 09/26/18 12:03 Dose: 100 mls/hr Albumin Human (Albumin 25%) 25 gm in 100 mls @ 25 mls/hr IV ONETIME ONE Stop: 09/26/18 20:59 Last Admin: 09/26/18 16:54 Dose: 25 mls/hr Multivitamins/Minerals 10 ml/Chromium/Copper/Manganese/Zinc 1 ml/ Thiamine HCl 100 mg/Dextrose/Lactated Ringer's 1,012 mls @ 100 mls/hr IV .Q10H8M [facility] Stop: 09/27/18 13:59 Last Admin: 09/27/18 11:43 Dose: 100 mls/hr Levofloxacin/Dextrose 500 mg/ (Premix) 100 mls @ 100 mls/hr IV ONETIME ONE Stop: 09/27/18 09:29 Last Admin: 09/27/18 20:47 Dose: Not Given Clindamycin Phosphate 900 mg/ (Sodium Chloride) 106 mls @ 212 mls/hr IV ONETIME ONE Stop: 09/27/18 09:59 Last Admin: 09/27/18 20:47 Dose: Not Given Lactated Ringer's (Ringers, Lactated) Confirm Administered Dose 1,000 mls @ as directed .ROUTE .STK-MED ONE Stop: 09/27/18 09:48 Albumin Human (Albumin 25%) 25 gm in 100 mls @ 25 mls/hr IV Q24H [facility] Stop: 09/30/18 15:59 Last Admin: 09/30/18 12:10 Dose: 25 mls/hr Multivitamins/Minerals 10 ml/Chromium/Copper/Manganese/Seleni/Zn 1 ml/ Amino Ac/ Electrol/Dextrose/Calcium 1,011 mls @ 80 mls/hr IV .BY DURATION [facility] Stop: 09/28/18 14:59 Last Admin: 09/27/18 14:31 Dose: 80 mls/hr Amino Ac/Electrol/Dextrose/Calcium (Clinimix E 5/15) 1,000 mls @ 80 mls/hr IV .BY DURATION [facility] Stop: 09/28/18 14:59 Last Admin: 09/28/18 03:13 Dose: 80 mls/hr Fat Emulsion Intravenous (Intralipid 20%) 100 mls @ 8.3 mls/hr IV ONETIME ONE Stop: 09/28/18 04:02 Last Admin: 09/27/18 16:30 Dose: 8.3 mls/hr Sodium Chloride (Normal Saline) 1,000 mls @ 0 mls/hr IV ASDIRECTED [facility] Stop: 09/28/18 11:59 Last Admin: 09/27/18 16:36 Dose: 25 mls/hr Acetaminophen 1,000 mg/ Premix 100 mls @ 400 mls/hr IV NOW ONE Stop: 09/27/18 13:14 Last Admin: 09/27/18 12:56 Dose: 400 mls/hr Levofloxacin/Dextrose 500 mg/ (Premix) 100 mls @ 100 mls/hr IV Q24H [facility] Last Admin: 09/28/18 07:28 Dose: 100 mls/hr Clindamycin Phosphate 900 mg/ (Sodium Chloride) 106 mls @ 212 mls/hr IV Q12H [facility] Last Admin: 09/28/18 21:42 Dose: 212 mls/hr Dextrose/Sodium Chloride (Dextrose 5%-1/2 Ns) 1,000 mls @ 0 mls/hr IV ASDIRECTED [facility] Last Admin: 10/01/18 15:04 Dose: 25 mls/hr Magnesium Sulfate 2 gm/ Premix 50 mls @ 25 mls/hr IV Q6H [facility] Stop: 10/01/18 05:59 Last Admin: 10/01/18 03:28 Dose: 25 mls/hr Albumin Human (Albumin 25%) 25 gm in 100 mls @ 25 mls/hr IV Q24H [facility] Stop: 09/30/18 19:59 Last Admin: 09/30/18 16:39 Dose: 25 mls/hr Multivitamins/Minerals 10 ml/Chromium/Copper/Manganese/Seleni/Zn 1 ml/ Amino Ac/ Electrol/Dextrose/Calcium 1,011 mls @ 80 mls/hr IV .BY DURATION [facility] Stop: 09/30/18 17:15 Last Admin: 09/29/18 16:05 Dose: 80 mls/hr Amino Ac/Electrol/Dextrose/Calcium (Clinimix E 515) 1,000 mls @ 80 mls/hr IV .BY DURATION [facility] Stop: 09/30/18 17:15 Last Admin: 09/30/18 05:54 Dose: 80 mls/hr Fat Emulsion Intravenous (Intralipid 20%) 100 mls @ 9 mls/hr IV ONETIME ONE Stop: 09/29/18 05:06 Last Admin: 09/28/18 17:39 Dose: 9 mls/hr Potassium Phosphate 15 mmole/ (Sodium Chloride) 105 mls @ 50 mls/hr IV Q2H [facility] Stop: 09/30/18 15:59 Last Admin: 09/30/18 14:32 Dose: 50 mls/hr Multivitamins/Minerals 10 ml/Chromium/Copper/Manganese/Seleni/Zn 1 ml/ Amino Ac/ Electrol/Dextrose/Calcium 1,011 mls @ 60 mls/hr IV .BY DURATION [facility] Stop: 10/02/18 20:00 Last Infusion: 10/02/18 09:00 Dose: 40 mls/hr Amino Ac/Electrol/Dextrose/Calcium (Clinimix E 15) 1,000 mls @ 60 mls/hr IV .BY DURATION [facility] Stop: 10/02/18 20:00 Last Admin: 10/01/18 13:24 Dose: 60 mls/hr Albumin Human (Albumin 25%) 25 gm in 100 mls @ 25 mls/hr IV Q24H [facility] Stop: 10/03/18 15:59 Last Admin: 10/01/18 12:18 Dose: 25 mls/hr Albumin Human (Albumin 25%) 25 gm in 100 mls @ 25 mls/hr IV Q24H [facility] Stop: 10/03/18 19:59 Last Admin: 10/01/18 16:38 Dose: 25 mls/hr Fat Emulsion Intravenous (Intralipid 20%) 250 mls @ 21 mls/hr IV ONETIME ONE Stop: 10/02/18 05:54 Last Admin: 10/01/18 17:31 Dose: 21 mls/hr Fat Emulsion Intravenous (Intralipid 20%) 250 mls @ 21 mls/hr IV Q24H [facility] Potassium Chloride 20 meq/Lidocaine HCl 2 ml/ Sodium Chloride 112 mls @ 50 mls/ hr IV Q2H [facility] Stop: 10/02/18 07:29 Last Admin: 10/02/18 06:32 Dose: Not Given Potassium Chloride 40 meq/ (Premix) 100 mls @ 25 mls/hr IV ONETIME ONE Stop: 10/02/18 07:30 Last Admin: 10/02/18 03:50 Dose: 25 mls/hr Potassium Chloride (Kcl 40 Meq In Water 100 Ml) Confirm Administered Dose 100 mls @ as directed .ROUTE .STK-MED ONE Stop: 10/02/18 03:50 Last Admin: 10/02/18 04:03 Dose: Not Given Potassium Phosphate 22.5 mmole (/ Sodium Chloride) 107.5 mls @ 26 mls/hr IV Q4H [facility] Stop: 10/02/18 18:29 Last Admin: 10/02/18 14:34 Dose: 26 mls/hr Multivitamins/Minerals 10 ml/Chromium/Copper/Manganese/Seleni/Zn 1 ml/ Amino Ac/ Electrol/Dextrose/Calcium 1,011 mls @ 40 mls/hr IV .BY DURATION [facility] Stop: 10/03/18 23:30 Last Admin: 10/03/18 05:34 Dose: 40 mls/hr Amino Ac/Electrol/Dextrose/Calcium (Clinimix E 5/15) 1,000 mls @ 40 mls/hr IV .BY DURATION [facility] Stop: 10/03/18 23:30 Potassium Chloride 40 meq/ (Premix) 100 mls @ 25 mls/hr IV ONETIME ONE Stop: 10/03/18 12:59 Last Admin: 10/03/18 08:20 Dose: 25 mls/hr Linezolid 600 mg/ Premix 300 mls @ 300 mls/hr IV Q12H [facility] Last Admin: 10/07/18 08:06 Dose: 300 mls/hr Multivitamins/Minerals 10 ml/Chromium/Copper/Manganese/Seleni/Zn 1 ml/ Amino Ac/ Electrol/Dextrose/Calcium 1,011 mls @ 40 mls/hr IV .BY DURATION [facility] Last Admin: 10/04/18 04:56 Dose: 40 mls/hr Amino Ac/Electrol/Dextrose/Calcium (Clinimix E 5/15) 1,000 mls @ 40 mls/hr IV .BY DURATION [facility] Piperacillin/Tazobactam/ (Dextrose 3.375 gm/ Premix) 50 mls @ 100 mls/hr IV Q6H [facility] Last Admin: 10/07/18 04:13 Dose: 100 mls/hr Potassium Phosphate 22.5 mmole (/ Sodium Chloride) 107.5 mls @ 27 mls/hr IV Q4H [facility] Stop: 10/04/18 17:59 Last Admin: 10/04/18 13:34 Dose: 27 mls/hr Multivitamins/Minerals 10 ml/Chromium/Copper/Manganese/Seleni/Zn 1 ml/ Amino Ac/ Electrol/Dextrose/Calcium 1,011 mls @ 40 mls/hr IV .BY DURATION [facility] Stop: 10/05/18 21:59 Last Admin: 10/05/18 04:44 Dose: 40 mls/hr Amino Ac/Electrol/Dextrose/Calcium (Clinimix E 5/15) 1,000 mls @ 40 mls/hr IV .BY DURATION [facility] Stop: 10/05/18 21:59 Potassium Chloride 20 meq/ (Premix) 100 mls @ 50 mls/hr IV ONETIME ONE Stop: 10/05/18 09:59 Last Admin: 10/05/18 08:01 Dose: 50 mls/hr Potassium Chloride 40 meq/ (Premix) 100 mls @ 25 mls/hr IV ONETIME ONE Stop: 10/05/18 13:59 Last Admin: 10/05/18 10:16 Dose: 25 mls/hr Magnesium Sulfate 2 gm/ Premix 50 mls @ 25 mls/hr IV Q6H [facility] Stop: 10/07/18 05:59 Last Admin: 10/07/18 04:14 Dose: 25 mls/hr Multivitamins/Minerals 10 ml/Chromium/Copper/Manganese/Seleni/Zn 1 ml/ Amino Ac/ Electrol/Dextrose/Calcium 1,011 mls @ 60 mls/hr IV .BY DURATION [facility] Stop: 10/06/18 13:55 Amino Ac/Electrol/Dextrose/Calcium (Clinimix E 5/15) 1,000 mls @ 60 mls/hr IV .BY DURATION [facility] Stop: 10/06/18 13:55 Last Admin: 10/06/18 00:34 Dose: 60 mls/hr Potassium Chloride 40 meq/ (Premix) 100 mls @ 25 mls/hr IV ONETIME ONE Stop: 10/05/18 23:59 Last Admin: 10/05/18 20:05 Dose: 25 mls/hr Potassium Phosphate 20 mmole/ (Sodium Chloride) 106.6667 mls @ 35 mls/hr IV Q3H [facility] Stop: 10/06/18 16:59 Last Admin: 10/06/18 15:19 Dose: 35 mls/hr Potassium Phosphate 20 mmole/ (Sodium Chloride) 106.6667 mls @ 36 mls/hr IV Q3H [facility] Stop: 10/07/18 17:58 Last Admin: 10/07/18 14:29 Dose: 36 mls/hr Sodium Chloride (Normal Saline) 80 mls @ 3.5 mls/sec IV ONETIME ONE Stop: 10/08/18 09:51 Lidocaine HCl (Xylocaine 2% Jelly) 10 ml MUCMEM ONETIME ONE Stop: 10/01/18 21:56 Last Admin: 10/01/18 22:04 Dose: 10 ml Lidocaine HCl (Xylocaine 2% Jelly) 10 ml MUCMEM ONETIME ONE Stop: 10/07/18 11:31 Last Admin: 10/07/18 13:49 Dose: 10 ml Lidocaine/Epinephrine (Xylocaine 1% With Epinephrine 1:100,000) Confirm Administered Dose 50 ml .ROUTE .STK-MED ONE Stop: 09/27/18 07:26 Last Admin: 09/27/18 09:40 Dose: 7 ml Loperamide HCl (Imodium) 2 mg PO QID [facility] Last Admin: 10/02/18 05:13 Dose: 2 mg Lorazepam (Ativan) 0.5 mg IVPUSH Q4H PRN PRN Reason: Anxiety Last Admin: 10/07/18 04:13 Dose: 0.5 mg Midazolam HCl (Versed 1 Mg/Ml) Confirm Administered Dose 2 mg .ROUTE .STK-MED ONE Stop: 09/27/18 07:08 Non-Formulary Medication (Total Parenteral Nutrition, Central) 1,000 ml .XX .Continue Order [facility] Stop: 09/29/18 12:00 Non-Formulary Medication (Total Parenteral Nutrition, Central) 1,000 ml .XX .Continue Order [facility] Stop: 09/30/18 09:00 Pantoprazole Sodium (Protonix Iv) 40 mg IV Q24H [facility] Last Admin: 09/29/18 14:31 Dose: 40 mg Polyethylene Glycol (Miralax) 238 gm PO ONETIME ONE Stop: 09/26/18 17:01 Last Admin: 09/26/18 16:54 Dose: 238 gram Potassium Chloride (Klor-Con M20) 40 meq PO ONETIME ONE Stop: 10/06/18 10:01 Last Admin: 10/06/18 09:55 Dose: 40 meq Potassium Chloride (Klor-Con M20) 40 meq PO ONETIME ONE Stop: 10/06/18 17:46 Last Admin: 10/06/18 21:46 Dose: Not Given Potassium Chloride (Klor-Con M20) 40 meq PO ONETIME ONE Stop: 10/06/18 21:01 Last Admin: 10/06/18 21:46 Dose: 40 meq Potassium Chloride (Klor-Con M20) 40 meq PO ONETIME ONE Stop: 10/07/18 08:46 Last Admin: 10/07/18 09:00 Dose: 40 meq Potassium Chloride (Klor-Con M20) 40 meq PO ONETIME ONE Stop: 10/07/18 12:01 Last Admin: 10/07/18 11:48 Dose: 40 meq Propofol (Diprivan 20 Ml) Confirm Administered Dose 200 mg .ROUTE .STK-MED ONE Stop: 09/27/18 07:07 Propofol (Diprivan 20 Ml) Confirm Administered Dose 200 mg .ROUTE .STK-MED ONE Stop: 09/27/18 09:05 Sodium Chloride (Saline Flush) 10 ml FLUSH ONETIME ONE Stop: 10/08/18 09:51 Tramadol HCl (Ultram) 50 mg PO Q4H PRN PRN Reason: Pain Last Admin: 09/27/18 15:17 Dose: 50 mg - Exam Quality Assessment: Supplemental Oxygen (Noninvasive positive pressure ventilation), Central Line/PICC, Urine Catheter, DVT Prophylaxis General: Alert, Oriented, Cooperative, Moderate Distress Lungs: Decreased Breath Sounds, Rales Cardiovascular: Regular Rate, Regular Rhythm, No Murmurs GI/Abdominal Exam: Soft, Non-Tender, No Organomegaly, No Distention Extremities: Non-Tender, No Pedal Edema Skin: Warm, Dry, Intact - Problem List Review Problem List Initiated/Reviewed/Updated: Yes - My Orders Last 24 Hours: My Active Orders 10/07/18 10:47 Haloperidol Lactate [Haldol] 1 mg IVPUSH Q2H PRN 10/07/18 11:00 Tamsulosin [Flomax] 0.4 mg PO DAILY 10/07/18 11:45 Insert Gibbons Catheter [Insert Urinary Catheter] [OM.PC] Q24H 10/07/18 21:00 Melatonin 9 mg PO BEDTIME 10/08/18 09:31 Ang Chest [CT] Stat 10/08/18 09:45 Linezolid [Zyvox] 600 mg Premix Bag 1 bag IV Q12H Meropenem [Merrem] 1 gm Sodium Chloride 0.9% [Normal Saline] 100 ml IV Q8H 10/08/18 10:09 Furosemide [Lasix] 20 mg IVPUSH NOW ONE Transfuse Red Blood Cells [COMM] Urgent 10/09/18 05:00 Chest 1V Frontal [CR] Timed - Plan Plan:: ASSESSMENT AND PLAN - ARDS/Acute respiratory failure with hypoxia - FiO2 has been decreased down to 45 % over the last 24 hours. He remains very compromised and continues to require noninvasive positive pressure ventilation. Chest x-ray shows stable pattern of ARDS/fluid in the lungs. Increased density left lung infiltrate. Sputum culture remains negative -Furosemide-20 mg IV today -Noninvasive positive pressure ventilation -Continue broad-spectrum antibiotic coverage with Zyvox, meropenum, and levofloxacin pending culture results -minimize fluid intake beyond TPN Urinary retention-unable to tolerate removal of Gibbons catheter, with significant urinary retention -Replace Gibbons catheter -Flomax 0.4 mg by mouth daily Delirium with mild agitation-l resolved -Discontinue lorazepam -Melatonin 9 mg by mouth daily at bedtime -Haldol 1 mg IV every 2 hours as needed for agitation Pancytopenia-white blood cell count and platelet counts remained low but stable , hemoglobin down to 7.7 -Transfuse 1 unit of red blood cells -Recheck hemoglobin later today and again in a.m.
[2018-10-08] MEDS: Meropenem 1 GM in Sodium Chloride 0.9% 100 ML IV SCH ×2 (10:29→19:05)
[2018-10-08] MEDS: Linezolid 600 MG in Premix Bag 1 BAG IV SCH ×2 (10:29→22:32)
--- NOTE | 2018-10-08 11:06 | CRLCT ---
INDICATION: Hypoxia and ARDS. TECHNIQUE : CT scan of the chest. CTA PE protocol. IV contrast. FINDINGS: Pulmonary arteries:No pulmonary artery filling defects. Heart/mediastinum:No adenopathy. The aorta is normal in caliber. Coronary calcifications. Small pericardial effusion at the base of the pericardium. Lungs and pleura:Septal thickening and alveolar opacities. Bilateral symmetric moderate to large pleural effusions. Patchy areas of more dense airspace disease or consolidation with air bronchograms left upper and lower lobes. Some background centrilobular emphysema in the upper lobes. No discrete pulmonary mass lesion. 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 IMPRESSION: 1. No signs for acute pulmonary embolus. 2. Extensive pleural effusions septal thickening suggesting fluid overload. This could be from capillary leak syndrome 3rd space fluid as well as congestive heart failure or renal insufficiency. 3. Emphysema. Focal areas of airspace disease could represent superimposed pneumonia. 4. Small pericardial effusion. 5. No pneumothorax. Please note that all CT scans at this facility use dose modulation, iterative reconstruction, and/or weight-based dosing when appropriate to reduce radiation dose to as low as reasonably achievable. Dictated by Dragan Gil MD @ Oct 08 2018 10:59AM Signed by Dr. Dragan Gil @ Oct 08 2018 11:05AM
[2018-10-08] MEDS: Levofloxacin/Dextrose 5%-Water 750 MG in Premix Bag 1 BAG IV SCH (16:08)
[2018-10-08] MEDS: Furosemide 40 MG/4 ML VIAL IVPUSH SCH (17:43)
[2018-10-08] MEDS: Acetaminophen 325 MG Tab PO PRN (22:32)
[2018-10-09] MEDS: Meropenem 1 GM in Sodium Chloride 0.9% 100 ML IV SCH (02:33)
[2018-10-09] MEDS: Furosemide 40 MG/4 ML VIAL IVPUSH SCH ×3 (02:33→17:51)
--- NOTE | 2018-10-09 05:54 | CRLCR ---
HISTORY: Follow-up ARDS and infiltrate. COMPARISON: CT of the chest from yesterday and plain film of the chest from yesterday. FINDINGS: A portable supine AP view of the chest was obtained at 0513 hours. The previously seen mild left pleural effusion is no longer evident in the left lung base. There is slight worsening of moderate interstitial infiltrate in the right midlung with decreased prominence of the interstitial infiltrate in the left mid and upper lungs, consistent with shifting atelectasis versus pulmonary edema. There is new rounded density in the left mid-inferior chest which may represent a fissural pseudotumor. There continues to be moderate diffuse interstitial pulmonary edema and moderate vascular engorgement, consistent with CHF versus ARDS. Again seen is a right internal jugular central line with its tip in satisfactory position in the superior vena cava. There is no sign of pneumothorax on the right. The heart remains normal in size. The mediastinum is normal in appearance. The osseous structures are normal in appearance for the patient`s age. IMPRESSION: Resolution of previously seen left basilar pleural effusion, with new rounded density in the left mid-lower lung, possibly a fissural pseudotumor from effusion. Shifting of infiltrates, becoming slightly worsen the right midlung and improved in the left mid and upper lungs., Shifting atelectasis versus pulmonary edema. No change in moderate diffuse interstitial pulmonary edema consistent with CHF versus ARDS. Dictated by William Alarcon MD @ Oct 09 2018 5:49AM Signed by Dr. William Alarcon @ Oct 09 2018 5:54AM
[2018-10-09] MEDS: Albuterol/Ipratropium 3.0-0.5 MG/3 ML Neb Soln NEB SCH ×4 (07:14→21:33)
[2018-10-09] MEDS: Levothyroxine 100 MCG Tab PO SCH (08:38)
[2018-10-09] MEDS: Pantoprazole 40 MG Tab.CR PO SCH (08:38)
[2018-10-09] MEDS: Loratadine 10 MG Tab.DIS PO SCH (08:38)
[2018-10-09] MEDS: Tamsulosin 0.4 MG Cap.ER PO SCH (08:38)
[2018-10-09] MEDS: Lactobacillus Rhamnosus GG (Probiotic) Cap PO SCH ×2 (08:43→21:33)
[2018-10-09] MEDS: Fluticasone Propionate Nasal Spray 16 GM Bottle NASBOTH SCH (08:43)
[2018-10-09] MEDS: Aspirin 81 MG Tab.EC PO SCH (08:44)
[2018-10-09] MEDS ORDERED: Potassium Chloride 20 MEQ Tab.ER PO ONE ×3 (09:00→17:00)
[2018-10-09] MEDS ORDERED: Potassium Chloride Riders 40 MEQ in Premix Bag 1 BAG IV ONE (09:30)
--- NOTE | 2018-10-09 09:51 | PCM.PN ---
- General Info Date of Service: 10/09/18 Subjective Update: Mr. Griffith is shown significant improvement in his respiratory status over the last 24 hours with more aggressive diuresis. He had become somewhat intolerant abuse of BiPAP and even mask with nonrebreather. He has been on nasal cannula 6 L/m via nasal cannula and maintaining adequate saturations. He agrees to try the BiPAP again while sleeping. Chest x-ray did not show significant improvement despite his medical improvement. Vital signs have remained stable and he has been afebrile. Functional Status: Reports: Tolerating Diet - Review of Systems General: Reports: Weakness. Denies: Fever, Chills Pulmonary: Reports: Shortness of Breath. Denies: Pleuritic Chest Pain, Cough, Sputum, Hemoptysis, Wheezing Cardiovascular: Reports: Dyspnea on Exertion. Denies: Chest Pain, Palpitations , Orthopnea, PND, Edema Gastrointestinal: Reports: No Symptoms - Patient Data Vitals - Most Recent: Last Vital Signs Temp 97.2 F 10/09/18 02:00 Pulse 75 10/09/18 08:00 Resp 20 10/09/18 08:00 BP 131/71 10/09/18 08:00 Pulse Ox 90 L 10/09/18 08:00 Weight - Most Recent: 107 lb 14.4 oz I&O - Last 24 Hours: Intake & Output 10/08/18 10/09/18 10/09/18 22:59 06:59 14:59 Intake Total 1280 1055 Output Total 2150 1550 Balance -870 -495 Lab Results Last 24 Hours: Laboratory Results - last 24 hr 10/07/18 10/08/18 10/08/18 Range/Units 06:28 14:44 16:59 WBC (4.5-11.0) K/uL RBC (4.30-5.90) M/uL Hgb 9.6 L (12.0-15.0) g/dL Hct (40.0-54.0) % MCV (80-98) fL MCH (27-31) pg MCHC (32-36) % Plt Count (150-400) K/uL Puncture Site Lt radial ABG pH 7.397 (7.350-7.450) ABG pCO2 35.5 (35.0-42.0) mmHg ABG pO2 72.0 L (75.0-100.0) mmHg ABG HCO3 21.4 L (22.0-26.0) mmol/L ABG Total CO2 20.1 L (23.0-27.0) mmol/L ABG O2 Saturation 91.0 L (95.0-98.0) % ABG O2 Content 11.7 L (15.0-23.0) %vol ABG Base Excess -2.5 mm/L ABG Hemoglobin 9.4 L (13.5-18.0) g/dL ABG Oxyhemoglobin 88.2 % ABG Carboxyhemoglobin -0.2 L (0.0-1.6) % ABG Methemoglobin 3.3 % Bob Test Pass O2 Delivery Device Non rebr mask Oxygen Flow Rate 7 L Sodium (140-148) mmol/L Potassium (3.6-5.2) mmol/L Chloride (100-108) mmol/L Carbon Dioxide (21-32) mmol/L Anion Gap (5.0-14.0) mmol/L BUN (7-18) mg/dL Creatinine (0.8-1.3) mg/dL Est Cr Clr Drug Dosing mL/min Estimated GFR (MDRD) (>60) Glucose (74-106) mg/dL Calcium (8.5-10.1) mg/dL Phosphorus (2.5-4.9) mg/dL Magnesium (1.8-2.4) mg/dL Total Bilirubin (0.2-1.0) mg/dL AST (15-37) U/L ALT (12-78) U/L Alkaline Phosphatase (46-116) U/L Total Protein (6.4-8.2) g/dL Albumin (3.4-5.0) g/dL Globulin (2.3-3.5) g/dL Albumin/Globulin Ratio (1.2-2.2) Blood Type O POSITIVE Gel Antibody Screen Negative Crossmatch See Detail 10/09/18 10/09/18 Range/Units 04:00 04:00 WBC 3.2 L (4.5-11.0) K/uL RBC 3.26 L (4.30-5.90) M/uL Hgb 9.8 L (12.0-15.0) g/dL Hct 28.9 L (40.0-54.0) % MCV 89 (80-98) fL MCH 30 (27-31) pg MCHC 34 (32-36) % Plt Count 69 L (150-400) K/uL Puncture Site ABG pH (7.350-7.450) ABG pCO2 (35.0-42.0) mmHg ABG pO2 (75.0-100.0) mmHg ABG HCO3 (22.0-26.0) mmol/L ABG Total CO2 (23.0-27.0) mmol/L ABG O2 Saturation (95.0-98.0) % ABG O2 Content (15.0-23.0) %vol ABG Base Excess mm/L ABG Hemoglobin (13.5-18.0) g/dL ABG Oxyhemoglobin % ABG Carboxyhemoglobin (0.0-1.6) % ABG Methemoglobin % Bob Test O2 Delivery Device Oxygen Flow Rate L Sodium 144 (140-148) mmol/L Potassium 3.1 L (3.6-5.2) mmol/L Chloride 110 H (100-108) mmol/L Carbon Dioxide 27 (21-32) mmol/L Anion Gap 10.1 (5.0-14.0) mmol/L BUN 40 H (7-18) mg/dL Creatinine 1.0 (0.8-1.3) mg/dL Est Cr Clr Drug Dosing 55.74 mL/min Estimated GFR (MDRD) > 60 (>60) Glucose 134 H (74-106) mg/dL Calcium 8.3 L (8.5-10.1) mg/dL Phosphorus 4.3 (2.5-4.9) mg/dL Magnesium 2.1 (1.8-2.4) mg/dL Total Bilirubin 1.2 H (0.2-1.0) mg/dL AST 85 H (15-37) U/L ALT 46 (12-78) U/L Alkaline Phosphatase 228 H (46-116) U/L Total Protein 4.8 L (6.4-8.2) g/dL Albumin 1.8 L (3.4-5.0) g/dL Globulin 3.0 (2.3-3.5) g/dL Albumin/Globulin Ratio 0.6 L (1.2-2.2) Blood Type Gel Antibody Screen Crossmatch Med Orders - Current: Current Medications Acetaminophen (Tylenol) 650 mg PO Q4H PRN PRN Reason: ANALGESIA/FEVER Last Admin: 10/08/18 22:32 Dose: 650 mg Acetaminophen (Tylenol) 650 mg RECTAL Q4H PRN PRN Reason: ANALGESIA/FEVER Albuterol (Proventil Neb Soln) 2.5 mg NEB Q2H PRN PRN Reason: Shortness of Breath Albuterol/Ipratropium (Duoneb 3.0-0.5 Mg/3 Ml) 3 ml NEB QIDRT [facility] Last Admin: 10/09/18 07:14 Dose: 3 ml Aspirin (Halfprin) 81 mg PO DAILY [facility] Last Admin: 10/09/18 08:44 Dose: 81 mg Benzocaine/Menthol (Cepacol Sore Throat) 1 lozenge MUCMEM 6XDAY PRN PRN Reason: Sore Throat Last Admin: 09/27/18 15:32 Dose: 1 john Fluticasone Propionate (Flonase) 0 gm NASBOTH DAILY [facility] Last Admin: 10/09/18 08:43 Dose: 2 spray Furosemide (Lasix) 40 mg IVPUSH Q8H [facility] Last Admin: 10/09/18 02:33 Dose: 40 mg Haloperidol Lactate (Haldol) 1 mg IVPUSH Q2H PRN PRN Reason: Agitation Heparin Sodium (Porcine) (Heparin Lock Flush 100 Units/Ml) 250 units 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 Last Admin: 10/08/18 17:46 Dose: 250 units Levofloxacin/Dextrose 750 mg/ (Premix) 150 mls @ 100 mls/hr IV Q24H [facility] Last Admin: 10/08/18 16:08 Dose: 100 mls/hr Multivitamins/Minerals 10 ml/Chromium/Copper/Manganese/Seleni/Zn 1 ml/ Amino Ac/ Electrol/Dextrose/Calcium 1,011 mls @ 60 mls/hr IV .BY DURATION [facility] Last Admin: 10/08/18 03:02 Dose: 60 mls/hr Amino Ac/Electrol/Dextrose/Calcium (Clinimix E 5/15) 1,000 mls @ 60 mls/hr IV .BY DURATION [facility] Last Admin: 10/08/18 19:49 Dose: 60 mls/hr Linezolid 600 mg/ Premix 300 mls @ 300 mls/hr IV Q12H [facility] Last Admin: 10/08/18 22:32 Dose: 300 mls/hr Meropenem 1 gm/ Sodium (Chloride) 50 mls @ 100 mls/hr IV Q8H [facility] Potassium Chloride 40 meq/ (Premix) 100 mls @ 25 mls/hr IV ONETIME ONE Stop: 10/09/18 13:29 Lactobacillus Rhamnosus (Culturelle) 1 cap PO BID [facility] Last Admin: 10/09/18 08:43 Dose: Not Given Levothyroxine Sodium (Synthroid) 100 mcg PO ACBREAKFAST [facility] Last Admin: 10/09/18 08:38 Dose: 100 mcg Loperamide HCl (Imodium) 2 mg PO QID PRN PRN Reason: DIARRHEA Last Admin: 10/06/18 21:53 Dose: 2 mg Loratadine (Claritin Reditabs) 10 mg PO DAILY [facility] Last Admin: 10/09/18 08:38 Dose: 10 mg Melatonin (Melatonin) 9 mg PO BEDTIME [facility] Last Admin: 10/08/18 22:32 Dose: 9 mg Morphine Sulfate (Morphine) 4 mg IVPUSH Q2H PRN PRN Reason: air hunger/chest tightness Pantoprazole Sodium (Protonix) 40 mg PO ACBREAKFAST [facility] Last Admin: 10/09/18 08:38 Dose: 40 mg Potassium Chloride (Klor-Con M20) 40 meq PO ONETIME ONE Stop: 10/09/18 12:01 Potassium Chloride (Klor-Con M20) 40 meq PO ONETIME ONE Stop: 10/09/18 17:01 Sodium Chloride (Saline Flush) 5 ml IV 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 Last Admin: 10/08/18 05:46 Dose: 5 ml Tamsulosin HCl (Flomax) 0.4 mg PO DAILY [facility] Last Admin: 10/09/18 08:38 Dose: 0.4 mg Discontinued Medications Acetazolamide (Diamox) 250 mg IVPUSH Q6H [facility] Stop: 10/05/18 22:01 Last Admin: 10/05/18 22:12 Dose: 250 mg Acetazolamide (Diamox) 250 mg IVPUSH Q12H [facility] Stop: 10/06/18 22:01 Last Admin: 10/06/18 21:46 Dose: 250 mg Albuterol/Ipratropium (Duoneb 3.0-0.5 Mg/3 Ml) 3 ml NEB Q6H [facility] Last Admin: 09/29/18 19:53 Dose: 3 ml Albuterol/Ipratropium (Duoneb 3.0-0.5 Mg/3 Ml) 3 ml NEB Q2H PRN PRN Reason: shortness of breath Last Admin: 10/01/18 17:31 Dose: 3 ml Bupivacaine HCl (Marcaine 0.5%) Confirm Administered Dose 50 ml .ROUTE .STK-MED ONE Stop: 09/27/18 07:25 Last Admin: 09/27/18 09:39 Dose: 7 ml Divalproex Sodium (Divalproex Sodium) 250 mg PO BIDMEALS [facility] Last Admin: 10/08/18 09:11 Dose: 250 mg Fentanyl (Sublimaze) Confirm Administered Dose 100 mcg .ROUTE .STK-MED ONE Stop: 09/27/18 07:07 Furosemide (Lasix) 20 mg PO BIDDIURETIC [facility] Last Admin: 09/27/18 15:03 Dose: Not Given Furosemide (Lasix) 20 mg IV ONETIME ONE Stop: 09/27/18 16:01 Last Admin: 09/27/18 15:08 Dose: 20 mg Furosemide (Lasix) 40 mg IVPUSH ONETIME ONE Stop: 09/29/18 22:46 Last Admin: 09/29/18 23:04 Dose: 40 mg Furosemide (Lasix) 40 mg IVPUSH ONETIME ONE Stop: 09/30/18 08:11 Last Admin: 09/30/18 08:03 Dose: 40 mg Furosemide (Lasix) 20 mg PO BIDDIURETIC [facility] Last Admin: 10/02/18 10:25 Dose: Not Given Furosemide (Lasix) 20 mg IV ONETIME ONE Stop: 10/01/18 10:01 Last Admin: 10/01/18 09:36 Dose: 20 mg Furosemide (Lasix) 20 mg IVPUSH ONETIME ONE Stop: 10/01/18 18:28 Last Admin: 10/01/18 18:34 Dose: 20 mg Furosemide (Lasix) 40 mg IVPUSH ONETIME ONE Stop: 10/01/18 21:45 Last Admin: 10/01/18 22:21 Dose: 40 mg Furosemide (Lasix) 40 mg IVPUSH ONETIME ONE Stop: 10/02/18 05:01 Last Admin: 10/02/18 05:13 Dose: 40 mg Furosemide 20 mg/ Furosemide (40 mg) 60 mg IV Q8H [facility] Last Admin: 10/03/18 09:11 Dose: 60 mg Furosemide (Lasix) 40 mg IV Q8H [facility] Last Admin: 10/05/18 04:02 Dose: 40 mg Furosemide (Lasix) 40 mg IV DAILY [facility] Last Admin: 10/06/18 09:37 Dose: 40 mg Furosemide (Lasix) 20 mg IV DAILY [facility] Furosemide (Lasix) 20 mg IVPUSH NOW ONE Stop: 10/08/18 10:10 Last Admin: 10/08/18 10:40 Dose: 20 mg Heparin Sodium (Porcine) (Heparin Lock Flush 100 Units/Ml) Confirm Administered Dose 1,500 units .ROUTE .STK-MED ONE Stop: 09/27/18 07:26 Last Admin: 09/27/18 09:39 Dose: 1,500 units Dextrose/Lactated Ringer's (Dextrose 5%-Lactated Ringers) 1,000 mls @ 100 mls/ hr IV ASDIRECTED [facility] Stop: 09/26/18 20:59 Last Admin: 09/26/18 12:03 Dose: 100 mls/hr Albumin Human (Albumin 25%) 25 gm in 100 mls @ 25 mls/hr IV ONETIME ONE Stop: 09/26/18 20:59 Last Admin: 09/26/18 16:54 Dose: 25 mls/hr Multivitamins/Minerals 10 ml/Chromium/Copper/Manganese/Zinc 1 ml/ Thiamine HCl 100 mg/Dextrose/Lactated Ringer's 1,012 mls @ 100 mls/hr IV .Q10H8M [facility] Stop: 09/27/18 13:59 Last Admin: 09/27/18 11:43 Dose: 100 mls/hr Levofloxacin/Dextrose 500 mg/ (Premix) 100 mls @ 100 mls/hr IV ONETIME ONE Stop: 09/27/18 09:29 Last Admin: 09/27/18 20:47 Dose: Not Given Clindamycin Phosphate 900 mg/ (Sodium Chloride) 106 mls @ 212 mls/hr IV ONETIME ONE Stop: 09/27/18 09:59 Last Admin: 09/27/18 20:47 Dose: Not Given Lactated Ringer's (Ringers, Lactated) Confirm Administered Dose 1,000 mls @ as directed .ROUTE .STK-MED ONE Stop: 09/27/18 09:48 Albumin Human (Albumin 25%) 25 gm in 100 mls @ 25 mls/hr IV Q24H [facility] Stop: 09/30/18 15:59 Last Admin: 09/30/18 12:10 Dose: 25 mls/hr Multivitamins/Minerals 10 ml/Chromium/Copper/Manganese/Seleni/Zn 1 ml/ Amino Ac/ Electrol/Dextrose/Calcium 1,011 mls @ 80 mls/hr IV .BY DURATION [facility] Stop: 09/28/18 14:59 Last Admin: 09/27/18 14:31 Dose: 80 mls/hr Amino Ac/Electrol/Dextrose/Calcium (Clinimix E 5/15) 1,000 mls @ 80 mls/hr IV .BY DURATION [facility] Stop: 09/28/18 14:59 Last Admin: 09/28/18 03:13 Dose: 80 mls/hr Fat Emulsion Intravenous (Intralipid 20%) 100 mls @ 8.3 mls/hr IV ONETIME ONE Stop: 09/28/18 04:02 Last Admin: 09/27/18 16:30 Dose: 8.3 mls/hr Sodium Chloride (Normal Saline) 1,000 mls @ 0 mls/hr IV ASDIRECTED [facility] Stop: 09/28/18 11:59 Last Admin: 09/27/18 16:36 Dose: 25 mls/hr Acetaminophen 1,000 mg/ Premix 100 mls @ 400 mls/hr IV NOW ONE Stop: 09/27/18 13:14 Last Admin: 09/27/18 12:56 Dose: 400 mls/hr Levofloxacin/Dextrose 500 mg/ (Premix) 100 mls @ 100 mls/hr IV Q24H [facility] Last Admin: 09/28/18 07:28 Dose: 100 mls/hr Clindamycin Phosphate 900 mg/ (Sodium Chloride) 106 mls @ 212 mls/hr IV Q12H [facility] Last Admin: 09/28/18 21:42 Dose: 212 mls/hr Dextrose/Sodium Chloride (Dextrose 5%-1/2 Ns) 1,000 mls @ 0 mls/hr IV ASDIRECTED [facility] Last Admin: 10/01/18 15:04 Dose: 25 mls/hr Magnesium Sulfate 2 gm/ Premix 50 mls @ 25 mls/hr IV Q6H [facility] Stop: 10/01/18 05:59 Last Admin: 10/01/18 03:28 Dose: 25 mls/hr Albumin Human (Albumin 25%) 25 gm in 100 mls @ 25 mls/hr IV Q24H [facility] Stop: 09/30/18 19:59 Last Admin: 09/30/18 16:39 Dose: 25 mls/hr Multivitamins/Minerals 10 ml/Chromium/Copper/Manganese/Seleni/Zn 1 ml/ Amino Ac/ Electrol/Dextrose/Calcium 1,011 mls @ 80 mls/hr IV .BY DURATION [facility] Stop: 09/30/18 17:15 Last Admin: 09/29/18 16:05 Dose: 80 mls/hr Amino Ac/Electrol/Dextrose/Calcium (Clinimix E 5/15) 1,000 mls @ 80 mls/hr IV .BY DURATION [facility] Stop: 09/30/18 17:15 Last Admin: 09/30/18 05:54 Dose: 80 mls/hr Fat Emulsion Intravenous (Intralipid 20%) 100 mls @ 9 mls/hr IV ONETIME ONE Stop: 09/29/18 05:06 Last Admin: 09/28/18 17:39 Dose: 9 mls/hr Potassium Phosphate 15 mmole/ (Sodium Chloride) 105 mls @ 50 mls/hr IV Q2H [facility] Stop: 09/30/18 15:59 Last Admin: 09/30/18 14:32 Dose: 50 mls/hr Multivitamins/Minerals 10 ml/Chromium/Copper/Manganese/Seleni/Zn 1 ml/ Amino Ac/ Electrol/Dextrose/Calcium 1,011 mls @ 60 mls/hr IV .BY DURATION [facility] Stop: 10/02/18 20:00 Last Infusion: 10/02/18 09:00 Dose: 40 mls/hr Amino Ac/Electrol/Dextrose/Calcium (Clinimix E 5/15) 1,000 mls @ 60 mls/hr IV .BY DURATION [facility] Stop: 10/02/18 20:00 Last Admin: 10/01/18 13:24 Dose: 60 mls/hr Albumin Human (Albumin 25%) 25 gm in 100 mls @ 25 mls/hr IV Q24H [facility] Stop: 10/03/18 15:59 Last Admin: 10/01/18 12:18 Dose: 25 mls/hr Albumin Human (Albumin 25%) 25 gm in 100 mls @ 25 mls/hr IV Q24H [facility] Stop: 10/03/18 19:59 Last Admin: 10/01/18 16:38 Dose: 25 mls/hr Fat Emulsion Intravenous (Intralipid 20%) 250 mls @ 21 mls/hr IV ONETIME ONE Stop: 10/02/18 05:54 Last Admin: 10/01/18 17:31 Dose: 21 mls/hr Fat Emulsion Intravenous (Intralipid 20%) 250 mls @ 21 mls/hr IV Q24H [facility] Potassium Chloride 20 meq/Lidocaine HCl 2 ml/ Sodium Chloride 112 mls @ 50 mls/ hr IV Q2H [facility] Stop: 10/02/18 07:29 Last Admin: 10/02/18 06:32 Dose: Not Given Potassium Chloride 40 meq/ (Premix) 100 mls @ 25 mls/hr IV ONETIME ONE Stop: 10/02/18 07:30 Last Admin: 10/02/18 03:50 Dose: 25 mls/hr Potassium Chloride (Kcl 40 Meq In Water 100 Ml) Confirm Administered Dose 100 mls @ as directed .ROUTE .STK-MED ONE Stop: 10/02/18 03:50 Last Admin: 10/02/18 04:03 Dose: Not Given Potassium Phosphate 22.5 mmole (/ Sodium Chloride) 107.5 mls @ 26 mls/hr IV Q4H [facility] Stop: 10/02/18 18:29 Last Admin: 10/02/18 14:34 Dose: 26 mls/hr Multivitamins/Minerals 10 ml/Chromium/Copper/Manganese/Seleni/Zn 1 ml/ Amino Ac/ Electrol/Dextrose/Calcium 1,011 mls @ 40 mls/hr IV .BY DURATION [facility] Stop: 10/03/18 23:30 Last Admin: 10/03/18 05:34 Dose: 40 mls/hr Amino Ac/Electrol/Dextrose/Calcium (Clinimix E 15) 1,000 mls @ 40 mls/hr IV .BY DURATION [facility] Stop: 10/03/18 23:30 Potassium Chloride 40 meq/ (Premix) 100 mls @ 25 mls/hr IV ONETIME ONE Stop: 10/03/18 12:59 Last Admin: 10/03/18 08:20 Dose: 25 mls/hr Linezolid 600 mg/ Premix 300 mls @ 300 mls/hr IV Q12H [facility] Last Admin: 10/07/18 08:06 Dose: 300 mls/hr Multivitamins/Minerals 10 ml/Chromium/Copper/Manganese/Seleni/Zn 1 ml/ Amino Ac/ Electrol/Dextrose/Calcium 1,011 mls @ 40 mls/hr IV .BY DURATION [facility] Last Admin: 10/04/18 04:56 Dose: 40 mls/hr Amino Ac/Electrol/Dextrose/Calcium (Clinimix E 5/15) 1,000 mls @ 40 mls/hr IV .BY DURATION [facility] Piperacillin/Tazobactam/ (Dextrose 3.375 gm/ Premix) 50 mls @ 100 mls/hr IV Q6H [facility] Last Admin: 10/07/18 04:13 Dose: 100 mls/hr Potassium Phosphate 22.5 mmole (/ Sodium Chloride) 107.5 mls @ 27 mls/hr IV Q4H [facility] Stop: 10/04/18 17:59 Last Admin: 10/04/18 13:34 Dose: 27 mls/hr Multivitamins/Minerals 10 ml/Chromium/Copper/Manganese/Seleni/Zn 1 ml/ Amino Ac/ Electrol/Dextrose/Calcium 1,011 mls @ 40 mls/hr IV .BY DURATION [facility] Stop: 10/05/18 21:59 Last Admin: 10/05/18 04:44 Dose: 40 mls/hr Amino Ac/Electrol/Dextrose/Calcium (Clinimix E 5/15) 1,000 mls @ 40 mls/hr IV .BY DURATION [facility] Stop: 10/05/18 21:59 Potassium Chloride 20 meq/ (Premix) 100 mls @ 50 mls/hr IV ONETIME ONE Stop: 10/05/18 09:59 Last Admin: 10/05/18 08:01 Dose: 50 mls/hr Potassium Chloride 40 meq/ (Premix) 100 mls @ 25 mls/hr IV ONETIME ONE Stop: 10/05/18 13:59 Last Admin: 10/05/18 10:16 Dose: 25 mls/hr Magnesium Sulfate 2 gm/ Premix 50 mls @ 25 mls/hr IV Q6H [facility] Stop: 10/07/18 05:59 Last Admin: 10/07/18 04:14 Dose: 25 mls/hr Multivitamins/Minerals 10 ml/Chromium/Copper/Manganese/Seleni/Zn 1 ml/ Amino Ac/ Electrol/Dextrose/Calcium 1,011 mls @ 60 mls/hr IV .BY DURATION [facility] Stop: 10/06/18 13:55 Amino Ac/Electrol/Dextrose/Calcium (Clinimix E 01/11) 1,000 mls @ 60 mls/hr IV .BY DURATION [facility] Stop: 10/06/18 13:55 Last Admin: 10/06/18 00:34 Dose: 60 mls/hr Potassium Chloride 40 meq/ (Premix) 100 mls @ 25 mls/hr IV ONETIME ONE Stop: 10/05/18 23:59 Last Admin: 10/05/18 20:05 Dose: 25 mls/hr Potassium Phosphate 20 mmole/ (Sodium Chloride) 106.6667 mls @ 35 mls/hr IV Q3H [facility] Stop: 10/06/18 16:59 Last Admin: 10/06/18 15:19 Dose: 35 mls/hr Potassium Phosphate 20 mmole/ (Sodium Chloride) 106.6667 mls @ 36 mls/hr IV Q3H [facility] Stop: 10/07/18 17:58 Last Admin: 10/07/18 14:29 Dose: 36 mls/hr Meropenem 1 gm/ Sodium (Chloride) 100 mls @ 200 mls/hr IV Q8H [facility] Last Admin: 10/09/18 02:33 Dose: 200 mls/hr Sodium Chloride (Normal Saline) 80 mls @ 3.5 mls/sec IV ONETIME ONE Stop: 10/08/18 09:51 Last Admin: 10/08/18 10:43 Dose: 4 mls/sec Iopamidol (Isovue-370 (76%)) 52 ml IV . DIRECTED [facility] Stop: 10/08/18 11:00 Last Admin: 10/08/18 10:44 Dose: 52 ml Lidocaine HCl (Xylocaine 2% Jelly) 10 ml MUCMEM ONETIME ONE Stop: 10/01/18 21:56 Last Admin: 10/01/18 22:04 Dose: 10 ml Lidocaine HCl (Xylocaine 2% Jelly) 10 ml MUCMEM ONETIME ONE Stop: 10/07/18 11:31 Last Admin: 10/07/18 13:49 Dose: 10 ml Lidocaine/Epinephrine (Xylocaine 1% With Epinephrine 1:100,000) Confirm Administered Dose 50 ml .ROUTE .STK-MED ONE Stop: 09/27/18 07:26 Last Admin: 09/27/18 09:40 Dose: 7 ml Loperamide HCl (Imodium) 2 mg PO QID [facility] Last Admin: 10/02/18 05:13 Dose: 2 mg Lorazepam (Ativan) 0.5 mg IVPUSH Q4H PRN PRN Reason: Anxiety Last Admin: 10/07/18 04:13 Dose: 0.5 mg Midazolam HCl (Versed 1 Mg/Ml) Confirm Administered Dose 2 mg .ROUTE .STK-MED ONE Stop: 09/27/18 07:08 Non-Formulary Medication (Total Parenteral Nutrition, Central) 1,000 ml .XX .Continue Order [facility] Stop: 09/29/18 12:00 Non-Formulary Medication (Total Parenteral Nutrition, Central) 1,000 ml .XX .Continue Order [facility] Stop: 09/30/18 09:00 Pantoprazole Sodium (Protonix Iv) 40 mg IV Q24H [facility] Last Admin: 09/29/18 14:31 Dose: 40 mg Polyethylene Glycol (Miralax) 238 gm PO ONETIME ONE Stop: 09/26/18 17:01 Last Admin: 09/26/18 16:54 Dose: 238 gram Potassium Chloride (Klor-Con M20) 40 meq PO ONETIME ONE Stop: 10/06/18 10:01 Last Admin: 10/06/18 09:55 Dose: 40 meq Potassium Chloride (Klor-Con M20) 40 meq PO ONETIME ONE Stop: 10/06/18 17:46 Last Admin: 10/06/18 21:46 Dose: Not Given Potassium Chloride (Klor-Con M20) 40 meq PO ONETIME ONE Stop: 10/06/18 21:01 Last Admin: 10/06/18 21:46 Dose: 40 meq Potassium Chloride (Klor-Con M20) 40 meq PO ONETIME ONE Stop: 10/07/18 08:46 Last Admin: 10/07/18 09:00 Dose: 40 meq Potassium Chloride (Klor-Con M20) 40 meq PO ONETIME ONE Stop: 10/07/18 12:01 Last Admin: 10/07/18 11:48 Dose: 40 meq Potassium Chloride (Klor-Con M20) 40 meq PO ONETIME ONE Stop: 10/09/18 09:01 Last Admin: 10/09/18 09:07 Dose: 40 meq Propofol (Diprivan 20 Ml) Confirm Administered Dose 200 mg .ROUTE .STK-MED ONE Stop: 09/27/18 07:07 Propofol (Diprivan 20 Ml) Confirm Administered Dose 200 mg .ROUTE .STK-MED ONE Stop: 09/27/18 09:05 Sodium Chloride (Saline Flush) 10 ml FLUSH ONETIME ONE Stop: 10/08/18 09:51 Last Admin: 10/08/18 10:44 Dose: 10 ml Tramadol HCl (Ultram) 50 mg PO Q4H PRN PRN Reason: Pain Last Admin: 09/27/18 15:17 Dose: 50 mg - Exam Quality Assessment: Supplemental Oxygen, Central Line/PICC, Urine Catheter, DVT Prophylaxis General: Alert, Oriented, Cooperative, Mild Distress Lungs: Clear to Auscultation, Normal Respiratory Effort Cardiovascular: Regular Rate, Regular Rhythm, No Murmurs GI/Abdominal Exam: Soft, Non-Tender, No Organomegaly, No Distention Extremities: Non-Tender, No Pedal Edema - Problem List Review Problem List Initiated/Reviewed/Updated: Yes - My Orders Last 24 Hours: My Active Orders 10/08/18 10:00 Linezolid [Zyvox] 600 mg Premix Bag 1 bag IV Q12H 10/08/18 10:09 Transfuse Red Blood Cells [COMM] Urgent 10/08/18 18:00 Furosemide [Lasix] 40 mg IVPUSH Q8H 10/09/18 09:30 Potassium Chloride Riders [KCL 40 MEQ in Water 100 ML] 40 meq Premix Bag 1 bag IV ONETIME 10/09/18 11:00 Meropenem [Merrem] 1 gm Sodium Chloride 0.9% [Normal Saline] 50 ml IV Q8H 10/09/18 12:00 Potassium Chloride [Klor-Con M20] 40 meq PO ONETIME ONE 10/09/18 17:00 Potassium Chloride [Klor-Con M20] 40 meq PO ONETIME ONE - Plan Plan:: ASSESSMENT AND PLAN - ARDS/Acute respiratory failure with hypoxia -respiratory status has significantly improved over the past 24 hours, this morning has tolerated nasal cannula at 6 L/m and was able to eat a full breakfast -Furosemide-40 mg IV q8hrs, reassess in a.m. -Noninvasive positive pressure ventilation, continue to use while sleeping -Discontinue antibiotic therapy -minimize fluid intake beyond TPN Urinary retention-unable to tolerate removal of Gibbons catheter, with significant urinary retention -We attempt to remove Gibbons catheter in the next day or 2 -Flomax 0.4 mg by mouth daily Delirium with mild agitation- resolved -Melatonin 9 mg by mouth daily at bedtime -Haldol 1 mg IV every 2 hours as needed for agitation Pancytopenia-white blood cell count and platelet counts remained low but stable , hemoglobin improve following transfusion of one unit of red blood cells. Peripheral smear obtained on 26 September shows evidence of pancytopenia but no specific cause. May be nutritional in nature or underlying bone marrow pathology. -Consider bone marrow biopsy for further evaluation, when he becomes more stable.
--- NOTE | 2018-10-09 10:01 | PN ---
DATE OF SERVICE: 10/09/2018 The patient has been afebrile with stable vital signs. The mentation is roughly status quo. He did receive 1 unit of packed RBCs yesterday and hemoglobin this morning is 9.6. Otherwise, he is presently on FiO2 of 45%. CT scan was obtained, which showed a pattern consistent with ARDS, and we will continue the TPN and supportive therapy along with Dr. Chou . Manfred Nicolas MD /[id number]
--- NOTE | 2018-10-09 11:00 | PN ---
DATE OF SERVICE: 10/04/2018 The patient is clinically gradually improving a little bit from a Pulmonary standpoint. He still desats into the 70s when he is off the BiPAP, but does recover more quickly and is requiring not quite as much in the way of FiO2. Levaquin was added to the antibiotic mix yesterday. The C and S report on the sputum is still pending, and we will continue the Zyvox until we see what is going on with the gram-positive cocci in terms of sensitivity. Otherwise, we will continue the TPN at 1 L a day rate and continue to work with pulmonary toilet. We may need to bump the TPN up a little bit higher if oral intake does not resume in the next day or so. Manfred Nicolas MD /[id number]
--- NOTE | 2018-10-09 11:36 | PN ---
DATE OF SERVICE: 10/05/2018 The patient has remained afebrile with stable vital signs. He is quite with his pCO2 being low likely related to his ongoing ARDS. On examination, he is a little bit better. Oral intake remains relatively minimal, and we will bump his TPN up to 60 mL/h. Otherwise, potassium and magnesium are marginally low. Those will be supplemented with minimal IV fluid, and otherwise we will continue with the present antibiotics and ongoing care with the assistance of Dr. Chou. Manfred Nicolas MD /[id number]
[2018-10-09] MEDS ORDERED: Potassium Phosphates 15 MMOLE in Sodium Chloride 0.9% 100 ML IV SCH (14:00)
[2018-10-09] MEDS: 1: AA 5%/Calcium/D15W/Lytes 1,000 ML with MVI, Adult with Vitamin K 10 ML, Chromium/Copp IV SCH ×3 (15:06)
[2018-10-09] MEDS: Melatonin 3 MG Tab PO SCH (21:33)
[2018-10-10] MEDS: Furosemide 40 MG/4 ML VIAL IVPUSH SCH ×3 (02:08→17:36)
--- NOTE | 2018-10-10 02:45 | CRLCR ---
HISTORY: Follow up edema/ARDS COMPARISON: From yesterday FINDINGS: A portable erect AP view of the chest was obtained at 0226 hours. There is no change in moderate interstitial pulmonary edema with a decrease in moderate vascular engorgement, findings of improvement in CHF versus ARDS. The previously seen mild linear density in the right lung base has resolved. Again seen is a right internal jugular central line with its tip in satisfactory position in the superior vena cava. There is no sign of pneumothorax on the right. The heart remains normal in size. The mediastinum is normal in appearance. The osseous structures are normal in appearance for the patient`s age. IMPRESSION: Stable moderate interstitial pulmonary edema with improvement in moderate vascular engorgement, consistent with improvement in moderate CHF versus ARDS. Resolution of mild linear left basilar atelectasis. Dictated by William Alarcon MD @ Oct 10 2018 2:42AM Signed by Dr. William Alarcon @ Oct 10 2018 2:45AM
[2018-10-10] MEDS: Albuterol/Ipratropium 3.0-0.5 MG/3 ML Neb Soln NEB SCH ×4 (07:11→21:34)
[2018-10-10] MEDS: Pantoprazole 40 MG Tab.CR PO SCH (08:17)
[2018-10-10] MEDS: Levothyroxine 100 MCG Tab PO SCH (08:17)
[2018-10-10] MEDS: 1: AA 5%/Calcium/D15W/Lytes 1,000 ML with MVI, Adult with Vitamin K 10 ML, Chromium/Copp IV SCH ×3 (08:18)
[2018-10-10] MEDS: Aspirin 81 MG Tab.EC PO SCH (10:03)
[2018-10-10] MEDS: Lactobacillus Rhamnosus GG (Probiotic) Cap PO SCH ×2 (10:04→21:34)
[2018-10-10] MEDS: Fluticasone Propionate Nasal Spray 16 GM Bottle NASBOTH SCH (10:04)
[2018-10-10] MEDS: Loratadine 10 MG Tab.DIS PO SCH (10:04)
[2018-10-10] MEDS: Tamsulosin 0.4 MG Cap.ER PO SCH (10:04)
[2018-10-10] MEDS ORDERED: Sodium Chloride 0.65% Nasal Spray 45 ML Bottle NAS PRN (10:06)
--- NOTE | 2018-10-10 10:06 | PCM.PN ---
- General Info Date of Service: 10/10/18 Subjective Update: There were no acute events overnight. Patient did use the noninvasive ventilation while he was sleeping. He continues to be very sleepy. He seems inattentive. He has been constantly blinking/squinting his eyes. He does okay with yes or no questions but has difficulty responding to more complex questions. He has had very little to eat or drink since yesterday morning. Thyroid testing this morning showed significant improvement in his TSH with supplementation. Head CT showed left posterior parietal stroke. Functional Status: Reports: Pain Controlled - Review of Systems General: Reports: Weakness. Denies: Fever Neurological: Reports: Confusion - Patient Data Vitals - Most Recent: Last Vital Signs Temp 37.4 C 10/10/18 08:00 Pulse 83 10/10/18 08:00 Resp 12 10/10/18 08:00 BP 124/70 10/10/18 08:00 Pulse Ox 100 10/10/18 08:00 Weight - Most Recent: 45.677 kg I&O - Last 24 Hours: Intake & Output 10/09/18 10/10/18 10/10/18 22:59 06:59 14:59 Intake Total 624 690 Output Total 1120 1100 Balance -496 -410 Lab Results Last 24 Hours: Laboratory Results - last 24 hr 10/10/18 10/10/18 Range/Units 04:35 04:35 WBC 3.2 L (4.5-11.0) K/uL RBC 3.41 L (4.30-5.90) M/uL Hgb 10.3 L (12.0-15.0) g/dL Hct 30.6 L (40.0-54.0) % MCV 90 (80-98) fL MCH 30 (27-31) pg MCHC 34 (32-36) % Plt Count 97 L (150-400) K/uL Sodium 148 (140-148) mmol/L Potassium 3.6 (3.6-5.2) mmol/L Chloride 114 H (100-108) mmol/L Carbon Dioxide 27 (21-32) mmol/L Anion Gap 10.6 (5.0-14.0) mmol/L BUN 49 H (7-18) mg/dL Creatinine 0.9 (0.8-1.3) mg/dL Est Cr Clr Drug Dosing 57.80 mL/min Estimated GFR (MDRD) > 60 (>60) Glucose 152 H (74-106) mg/dL Calcium 8.7 (8.5-10.1) mg/dL Phosphorus 3.7 (2.5-4.9) mg/dL Magnesium 2.0 (1.8-2.4) mg/dL Total Bilirubin 1.4 H (0.2-1.0) mg/dL AST 88 H (15-37) U/L ALT 58 (12-78) U/L Alkaline Phosphatase 236 H (46-116) U/L NT-Pro-B Natriuret Pep 187 H (5-125) pg/mL Total Protein 5.3 L (6.4-8.2) g/dL Albumin 2.0 L (3.4-5.0) g/dL Globulin 3.3 (2.3-3.5) g/dL Albumin/Globulin Ratio 0.6 L (1.2-2.2) Med Orders - Current: Current Medications Acetaminophen (Tylenol) 650 mg PO Q4H PRN PRN Reason: ANALGESIA/FEVER Last Admin: 10/08/18 22:32 Dose: 650 mg Acetaminophen (Tylenol) 650 mg RECTAL Q4H PRN PRN Reason: ANALGESIA/FEVER Albuterol (Proventil Neb Soln) 2.5 mg NEB Q2H PRN PRN Reason: Shortness of Breath Last Admin: 10/10/18 00:10 Dose: 2.5 mg Albuterol/Ipratropium (Duoneb 3.0-0.5 Mg/3 Ml) 3 ml NEB QIDRT [facility] Last Admin: 10/10/18 07:11 Dose: 3 ml Aspirin (Halfprin) 81 mg PO DAILY [facility] Last Admin: 10/10/18 10:03 Dose: 81 mg Benzocaine/Menthol (Cepacol Sore Throat) 1 lozenge MUCMEM 6XDAY PRN PRN Reason: Sore Throat Last Admin: 09/27/18 15:32 Dose: 1 john Fluticasone Propionate (Flonase) 0 gm NASBOTH DAILY [facility] Last Admin: 10/10/18 10:04 Dose: 2 spray Furosemide (Lasix) 40 mg IVPUSH Q8H [facility] Last Admin: 10/10/18 10:05 Dose: 40 mg Haloperidol Lactate (Haldol) 1 mg IVPUSH Q2H PRN PRN Reason: Agitation Heparin Sodium (Porcine) (Heparin Lock Flush 100 Units/Ml) 250 units 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 Last Admin: 10/09/18 10:20 Dose: 250 units Multivitamins/Minerals 10 ml/Chromium/Copper/Manganese/Seleni/Zn 1 ml/ Amino Ac/ Electrol/Dextrose/Calcium 1,011 mls @ 60 mls/hr IV .BY DURATION [facility] Stop: 10/10/18 19:00 Last Admin: 10/09/18 15:06 Dose: 60 mls/hr Amino Ac/Electrol/Dextrose/Calcium (Clinimix E 5/15) 1,000 mls @ 60 mls/hr IV .BY DURATION [facility] Stop: 10/10/18 19:00 Last Admin: 10/10/18 08:18 Dose: 60 mls/hr Potassium Phosphate 22.5 mmole (/ Sodium Chloride) 107.5 mls @ 26 mls/hr IV Q4H [facility] Stop: 10/10/18 17:29 Multivitamins/Minerals 10 ml/Chromium/Copper/Manganese/Seleni/Zn 1 ml/ Amino Ac/ Electrol/Dextrose/Calcium 1,011 mls @ 60 mls/hr IV .BY DURATION [facility] Amino Ac/Electrol/Dextrose/Calcium (Clinimix E 5/15) 1,000 mls @ 60 mls/hr IV .BY DURATION [facility] Lactobacillus Rhamnosus (Culturelle) 1 cap PO BID [facility] Last Admin: 10/10/18 10:04 Dose: 1 cap Levothyroxine Sodium (Synthroid) 100 mcg PO ACBREAKFAST [facility] Last Admin: 10/10/18 08:17 Dose: 100 mcg Loperamide HCl (Imodium) 2 mg PO QID PRN PRN Reason: DIARRHEA Last Admin: 10/06/18 21:53 Dose: 2 mg Loratadine (Claritin Reditabs) 10 mg PO DAILY [facility] Last Admin: 10/10/18 10:04 Dose: 10 mg Morphine Sulfate (Morphine) 4 mg IVPUSH Q2H PRN PRN Reason: air hunger/chest tightness Pantoprazole Sodium (Protonix) 40 mg PO ACBREAKFAST [facility] Last Admin: 10/10/18 08:17 Dose: 40 mg Sodium Chloride (Saline Flush) 5 ml IV 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 Last Admin: 10/08/18 05:46 Dose: 5 ml Tamsulosin HCl (Flomax) 0.4 mg PO DAILY [facility] Last Admin: 10/10/18 10:04 Dose: 0.4 mg Discontinued Medications Acetazolamide (Diamox) 250 mg IVPUSH Q6H [facility] Stop: 10/05/18 22:01 Last Admin: 10/05/18 22:12 Dose: 250 mg Acetazolamide (Diamox) 250 mg IVPUSH Q12H [facility] Stop: 10/06/18 22:01 Last Admin: 10/06/18 21:46 Dose: 250 mg Albuterol/Ipratropium (Duoneb 3.0-0.5 Mg/3 Ml) 3 ml NEB Q6H [facility] Last Admin: 09/29/18 19:53 Dose: 3 ml Albuterol/Ipratropium (Duoneb 3.0-0.5 Mg/3 Ml) 3 ml NEB Q2H PRN PRN Reason: shortness of breath Last Admin: 10/01/18 17:31 Dose: 3 ml Bupivacaine HCl (Marcaine 0.5%) Confirm Administered Dose 50 ml .ROUTE .STK-MED ONE Stop: 09/27/18 07:25 Last Admin: 09/27/18 09:39 Dose: 7 ml Divalproex Sodium (Divalproex Sodium) 250 mg PO BIDMEALS [facility] Last Admin: 10/08/18 09:11 Dose: 250 mg Fentanyl (Sublimaze) Confirm Administered Dose 100 mcg .ROUTE .STK-MED ONE Stop: 09/27/18 07:07 Furosemide (Lasix) 20 mg PO BIDDIURETIC [facility] Last Admin: 09/27/18 15:03 Dose: Not Given Furosemide (Lasix) 20 mg IV ONETIME ONE Stop: 09/27/18 16:01 Last Admin: 09/27/18 15:08 Dose: 20 mg Furosemide (Lasix) 40 mg IVPUSH ONETIME ONE Stop: 09/29/18 22:46 Last Admin: 09/29/18 23:04 Dose: 40 mg Furosemide (Lasix) 40 mg IVPUSH ONETIME ONE Stop: 09/30/18 08:11 Last Admin: 09/30/18 08:03 Dose: 40 mg Furosemide (Lasix) 20 mg PO BIDDIURETIC [facility] Last Admin: 10/02/18 10:25 Dose: Not Given Furosemide (Lasix) 20 mg IV ONETIME ONE Stop: 10/01/18 10:01 Last Admin: 10/01/18 09:36 Dose: 20 mg Furosemide (Lasix) 20 mg IVPUSH ONETIME ONE Stop: 10/01/18 18:28 Last Admin: 10/01/18 18:34 Dose: 20 mg Furosemide (Lasix) 40 mg IVPUSH ONETIME ONE Stop: 10/01/18 21:45 Last Admin: 10/01/18 22:21 Dose: 40 mg Furosemide (Lasix) 40 mg IVPUSH ONETIME ONE Stop: 10/02/18 05:01 Last Admin: 10/02/18 05:13 Dose: 40 mg Furosemide 20 mg/ Furosemide (40 mg) 60 mg IV Q8H [facility] Last Admin: 10/03/18 09:11 Dose: 60 mg Furosemide (Lasix) 40 mg IV Q8H [facility] Last Admin: 10/05/18 04:02 Dose: 40 mg Furosemide (Lasix) 40 mg IV DAILY [facility] Last Admin: 10/06/18 09:37 Dose: 40 mg Furosemide (Lasix) 20 mg IV DAILY [facility] Furosemide (Lasix) 20 mg IVPUSH NOW ONE Stop: 10/08/18 10:10 Last Admin: 10/08/18 10:40 Dose: 20 mg Heparin Sodium (Porcine) (Heparin Lock Flush 100 Units/Ml) Confirm Administered Dose 1,500 units .ROUTE .STK-MED ONE Stop: 09/27/18 07:26 Last Admin: 09/27/18 09:39 Dose: 1,500 units Dextrose/Lactated Ringer's (Dextrose 5%-Lactated Ringers) 1,000 mls @ 100 mls/ hr IV ASDIRECTED [facility] Stop: 09/26/18 20:59 Last Admin: 09/26/18 12:03 Dose: 100 mls/hr Albumin Human (Albumin 25%) 25 gm in 100 mls @ 25 mls/hr IV ONETIME ONE Stop: 09/26/18 20:59 Last Admin: 09/26/18 16:54 Dose: 25 mls/hr Multivitamins/Minerals 10 ml/Chromium/Copper/Manganese/Zinc 1 ml/ Thiamine HCl 100 mg/Dextrose/Lactated Ringer's 1,012 mls @ 100 mls/hr IV .Q10H8M [facility] Stop: 09/27/18 13:59 Last Admin: 09/27/18 11:43 Dose: 100 mls/hr Levofloxacin/Dextrose 500 mg/ (Premix) 100 mls @ 100 mls/hr IV ONETIME ONE Stop: 09/27/18 09:29 Last Admin: 09/27/18 20:47 Dose: Not Given Clindamycin Phosphate 900 mg/ (Sodium Chloride) 106 mls @ 212 mls/hr IV ONETIME ONE Stop: 09/27/18 09:59 Last Admin: 09/27/18 20:47 Dose: Not Given Lactated Ringer's (Ringers, Lactated) Confirm Administered Dose 1,000 mls @ as directed .ROUTE .STK-MED ONE Stop: 09/27/18 09:48 Albumin Human (Albumin 25%) 25 gm in 100 mls @ 25 mls/hr IV Q24H [facility] Stop: 09/30/18 15:59 Last Admin: 09/30/18 12:10 Dose: 25 mls/hr Multivitamins/Minerals 10 ml/Chromium/Copper/Manganese/Seleni/Zn 1 ml/ Amino Ac/ Electrol/Dextrose/Calcium 1,011 mls @ 80 mls/hr IV .BY DURATION [facility] Stop: 09/28/18 14:59 Last Admin: 09/27/18 14:31 Dose: 80 mls/hr Amino Ac/Electrol/Dextrose/Calcium (Clinimix E 5/15) 1,000 mls @ 80 mls/hr IV .BY DURATION [facility] Stop: 09/28/18 14:59 Last Admin: 09/28/18 03:13 Dose: 80 mls/hr Fat Emulsion Intravenous (Intralipid 20%) 100 mls @ 8.3 mls/hr IV ONETIME ONE Stop: 09/28/18 04:02 Last Admin: 09/27/18 16:30 Dose: 8.3 mls/hr Sodium Chloride (Normal Saline) 1,000 mls @ 0 mls/hr IV ASDIRECTED [facility] Stop: 09/28/18 11:59 Last Admin: 09/27/18 16:36 Dose: 25 mls/hr Acetaminophen 1,000 mg/ Premix 100 mls @ 400 mls/hr IV NOW ONE Stop: 09/27/18 13:14 Last Admin: 09/27/18 12:56 Dose: 400 mls/hr Levofloxacin/Dextrose 500 mg/ (Premix) 100 mls @ 100 mls/hr IV Q24H [facility] Last Admin: 09/28/18 07:28 Dose: 100 mls/hr Clindamycin Phosphate 900 mg/ (Sodium Chloride) 106 mls @ 212 mls/hr IV Q12H [facility] Last Admin: 09/28/18 21:42 Dose: 212 mls/hr Dextrose/Sodium Chloride (Dextrose 5%-1/2 Ns) 1,000 mls @ 0 mls/hr IV ASDIRECTED [facility] Last Admin: 10/01/18 15:04 Dose: 25 mls/hr Magnesium Sulfate 2 gm/ Premix 50 mls @ 25 mls/hr IV Q6H [facility] Stop: 10/01/18 05:59 Last Admin: 10/01/18 03:28 Dose: 25 mls/hr Albumin Human (Albumin 25%) 25 gm in 100 mls @ 25 mls/hr IV Q24H [facility] Stop: 09/30/18 19:59 Last Admin: 09/30/18 16:39 Dose: 25 mls/hr Multivitamins/Minerals 10 ml/Chromium/Copper/Manganese/Seleni/Zn 1 ml/ Amino Ac/ Electrol/Dextrose/Calcium 1,011 mls @ 80 mls/hr IV .BY DURATION [facility] Stop: 09/30/18 17:15 Last Admin: 09/29/18 16:05 Dose: 80 mls/hr Amino Ac/Electrol/Dextrose/Calcium (Clinimix E 515) 1,000 mls @ 80 mls/hr IV .BY DURATION [facility] Stop: 09/30/18 17:15 Last Admin: 09/30/18 05:54 Dose: 80 mls/hr Fat Emulsion Intravenous (Intralipid 20%) 100 mls @ 9 mls/hr IV ONETIME ONE Stop: 09/29/18 05:06 Last Admin: 09/28/18 17:39 Dose: 9 mls/hr Potassium Phosphate 15 mmole/ (Sodium Chloride) 105 mls @ 50 mls/hr IV Q2H [facility] Stop: 09/30/18 15:59 Last Admin: 09/30/18 14:32 Dose: 50 mls/hr Multivitamins/Minerals 10 ml/Chromium/Copper/Manganese/Seleni/Zn 1 ml/ Amino Ac/ Electrol/Dextrose/Calcium 1,011 mls @ 60 mls/hr IV .BY DURATION [facility] Stop: 10/02/18 20:00 Last Infusion: 10/02/18 09:00 Dose: 40 mls/hr Amino Ac/Electrol/Dextrose/Calcium (Clinimix E 15) 1,000 mls @ 60 mls/hr IV .BY DURATION [facility] Stop: 10/02/18 20:00 Last Admin: 10/01/18 13:24 Dose: 60 mls/hr Albumin Human (Albumin 25%) 25 gm in 100 mls @ 25 mls/hr IV Q24H [facility] Stop: 10/03/18 15:59 Last Admin: 10/01/18 12:18 Dose: 25 mls/hr Albumin Human (Albumin 25%) 25 gm in 100 mls @ 25 mls/hr IV Q24H [facility] Stop: 10/03/18 19:59 Last Admin: 10/01/18 16:38 Dose: 25 mls/hr Fat Emulsion Intravenous (Intralipid 20%) 250 mls @ 21 mls/hr IV ONETIME ONE Stop: 10/02/18 05:54 Last Admin: 10/01/18 17:31 Dose: 21 mls/hr Fat Emulsion Intravenous (Intralipid 20%) 250 mls @ 21 mls/hr IV Q24H [facility] Potassium Chloride 20 meq/Lidocaine HCl 2 ml/ Sodium Chloride 112 mls @ 50 mls/ hr IV Q2H [facility] Stop: 10/02/18 07:29 Last Admin: 10/02/18 06:32 Dose: Not Given Potassium Chloride 40 meq/ (Premix) 100 mls @ 25 mls/hr IV ONETIME ONE Stop: 10/02/18 07:30 Last Admin: 10/02/18 03:50 Dose: 25 mls/hr Potassium Chloride (Kcl 40 Meq In Water 100 Ml) Confirm Administered Dose 100 mls @ as directed .ROUTE .STK-MED ONE Stop: 10/02/18 03:50 Last Admin: 10/02/18 04:03 Dose: Not Given Potassium Phosphate 22.5 mmole (/ Sodium Chloride) 107.5 mls @ 26 mls/hr IV Q4H [facility] Stop: 10/02/18 18:29 Last Admin: 10/02/18 14:34 Dose: 26 mls/hr Multivitamins/Minerals 10 ml/Chromium/Copper/Manganese/Seleni/Zn 1 ml/ Amino Ac/ Electrol/Dextrose/Calcium 1,011 mls @ 40 mls/hr IV .BY DURATION [facility] Stop: 10/03/18 23:30 Last Admin: 10/03/18 05:34 Dose: 40 mls/hr Amino Ac/Electrol/Dextrose/Calcium (Clinimix E 5/15) 1,000 mls @ 40 mls/hr IV .BY DURATION [facility] Stop: 10/03/18 23:30 Potassium Chloride 40 meq/ (Premix) 100 mls @ 25 mls/hr IV ONETIME ONE Stop: 10/03/18 12:59 Last Admin: 10/03/18 08:20 Dose: 25 mls/hr Linezolid 600 mg/ Premix 300 mls @ 300 mls/hr IV Q12H [facility] Last Admin: 10/07/18 08:06 Dose: 300 mls/hr Multivitamins/Minerals 10 ml/Chromium/Copper/Manganese/Seleni/Zn 1 ml/ Amino Ac/ Electrol/Dextrose/Calcium 1,011 mls @ 40 mls/hr IV .BY DURATION [facility] Last Admin: 10/04/18 04:56 Dose: 40 mls/hr Amino Ac/Electrol/Dextrose/Calcium (Clinimix E 5/15) 1,000 mls @ 40 mls/hr IV .BY DURATION [facility] Piperacillin/Tazobactam/ (Dextrose 3.375 gm/ Premix) 50 mls @ 100 mls/hr IV Q6H [facility] Last Admin: 10/07/18 04:13 Dose: 100 mls/hr Levofloxacin/Dextrose 750 mg/ (Premix) 150 mls @ 100 mls/hr IV Q24H [facility] Last Admin: 10/08/18 16:08 Dose: 100 mls/hr Potassium Phosphate 22.5 mmole (/ Sodium Chloride) 107.5 mls @ 27 mls/hr IV Q4H [facility] Stop: 10/04/18 17:59 Last Admin: 10/04/18 13:34 Dose: 27 mls/hr Multivitamins/Minerals 10 ml/Chromium/Copper/Manganese/Seleni/Zn 1 ml/ Amino Ac/ Electrol/Dextrose/Calcium 1,011 mls @ 40 mls/hr IV .BY DURATION [facility] Stop: 10/05/18 21:59 Last Admin: 10/05/18 04:44 Dose: 40 mls/hr Amino Ac/Electrol/Dextrose/Calcium (Clinimix E 5/15) 1,000 mls @ 40 mls/hr IV .BY DURATION [facility] Stop: 10/05/18 21:59 Potassium Chloride 20 meq/ (Premix) 100 mls @ 50 mls/hr IV ONETIME ONE Stop: 10/05/18 09:59 Last Admin: 10/05/18 08:01 Dose: 50 mls/hr Potassium Chloride 40 meq/ (Premix) 100 mls @ 25 mls/hr IV ONETIME ONE Stop: 10/05/18 13:59 Last Admin: 10/05/18 10:16 Dose: 25 mls/hr Magnesium Sulfate 2 gm/ Premix 50 mls @ 25 mls/hr IV Q6H [facility] Stop: 10/07/18 05:59 Last Admin: 10/07/18 04:14 Dose: 25 mls/hr Multivitamins/Minerals 10 ml/Chromium/Copper/Manganese/Seleni/Zn 1 ml/ Amino Ac/ Electrol/Dextrose/Calcium 1,011 mls @ 60 mls/hr IV .BY DURATION [facility] Stop: 10/06/18 13:55 Amino Ac/Electrol/Dextrose/Calcium (Clinimix E 5/15) 1,000 mls @ 60 mls/hr IV .BY DURATION [facility] Stop: 10/06/18 13:55 Last Admin: 10/06/18 00:34 Dose: 60 mls/hr Potassium Chloride 40 meq/ (Premix) 100 mls @ 25 mls/hr IV ONETIME ONE Stop: 10/05/18 23:59 Last Admin: 10/05/18 20:05 Dose: 25 mls/hr Potassium Phosphate 20 mmole/ (Sodium Chloride) 106.6667 mls @ 35 mls/hr IV Q3H [facility] Stop: 10/06/18 16:59 Last Admin: 10/06/18 15:19 Dose: 35 mls/hr Potassium Phosphate 20 mmole/ (Sodium Chloride) 106.6667 mls @ 36 mls/hr IV Q3H [facility] Stop: 10/07/18 17:58 Last Admin: 10/07/18 14:29 Dose: 36 mls/hr Linezolid 600 mg/ Premix 300 mls @ 300 mls/hr IV Q12H [facility] Last Admin: 10/08/18 22:32 Dose: 300 mls/hr Meropenem 1 gm/ Sodium (Chloride) 100 mls @ 200 mls/hr IV Q8H [facility] Last Admin: 10/09/18 02:33 Dose: 200 mls/hr Sodium Chloride (Normal Saline) 80 mls @ 3.5 mls/sec IV ONETIME ONE Stop: 10/08/18 09:51 Last Admin: 10/08/18 10:43 Dose: 4 mls/sec Meropenem 1 gm/ Sodium (Chloride) 50 mls @ 100 mls/hr IV Q8H [facility] Potassium Chloride 40 meq/ (Premix) 100 mls @ 25 mls/hr IV ONETIME ONE Stop: 10/09/18 13:29 Last Admin: 10/09/18 10:08 Dose: 25 mls/hr Iopamidol (Isovue-370 (76%)) 52 ml IV . DIRECTED [facility] Stop: 10/08/18 11:00 Last Admin: 10/08/18 10:44 Dose: 52 ml Lidocaine HCl (Xylocaine 2% Jelly) 10 ml MUCMEM ONETIME ONE Stop: 10/01/18 21:56 Last Admin: 10/01/18 22:04 Dose: 10 ml Lidocaine HCl (Xylocaine 2% Jelly) 10 ml MUCMEM ONETIME ONE Stop: 10/07/18 11:31 Last Admin: 10/07/18 13:49 Dose: 10 ml Lidocaine/Epinephrine (Xylocaine 1% With Epinephrine 1:100,000) Confirm Administered Dose 50 ml .ROUTE .STK-MED ONE Stop: 09/27/18 07:26 Last Admin: 09/27/18 09:40 Dose: 7 ml Loperamide HCl (Imodium) 2 mg PO QID [facility] Last Admin: 10/02/18 05:13 Dose: 2 mg Lorazepam (Ativan) 0.5 mg IVPUSH Q4H PRN PRN Reason: Anxiety Last Admin: 10/07/18 04:13 Dose: 0.5 mg Melatonin (Melatonin) 9 mg PO BEDTIME [facility] Last Admin: 10/09/18 21:33 Dose: Not Given Midazolam HCl (Versed 1 Mg/Ml) Confirm Administered Dose 2 mg .ROUTE .STK-MED ONE Stop: 09/27/18 07:08 Non-Formulary Medication (Total Parenteral Nutrition, Central) 1,000 ml .XX .Continue Order [facility] Stop: 09/29/18 12:00 Non-Formulary Medication (Total Parenteral Nutrition, Central) 1,000 ml .XX .Continue Order [facility] Stop: 09/30/18 09:00 Pantoprazole Sodium (Protonix Iv) 40 mg IV Q24H [facility] Last Admin: 09/29/18 14:31 Dose: 40 mg Polyethylene Glycol (Miralax) 238 gm PO ONETIME ONE Stop: 09/26/18 17:01 Last Admin: 09/26/18 16:54 Dose: 238 gram Potassium Chloride (Klor-Con M20) 40 meq PO ONETIME ONE Stop: 10/06/18 10:01 Last Admin: 10/06/18 09:55 Dose: 40 meq Potassium Chloride (Klor-Con M20) 40 meq PO ONETIME ONE Stop: 10/06/18 17:46 Last Admin: 10/06/18 21:46 Dose: Not Given Potassium Chloride (Klor-Con M20) 40 meq PO ONETIME ONE Stop: 10/06/18 21:01 Last Admin: 10/06/18 21:46 Dose: 40 meq Potassium Chloride (Klor-Con M20) 40 meq PO ONETIME ONE Stop: 10/07/18 08:46 Last Admin: 10/07/18 09:00 Dose: 40 meq Potassium Chloride (Klor-Con M20) 40 meq PO ONETIME ONE Stop: 10/07/18 12:01 Last Admin: 10/07/18 11:48 Dose: 40 meq Potassium Chloride (Klor-Con M20) 40 meq PO ONETIME ONE Stop: 10/09/18 09:01 Last Admin: 10/09/18 09:07 Dose: 40 meq Potassium Chloride (Klor-Con M20) 40 meq PO ONETIME ONE Stop: 10/09/18 12:01 Last Admin: 10/09/18 12:54 Dose: 40 meq Potassium Chloride (Klor-Con M20) 40 meq PO ONETIME ONE Stop: 10/09/18 17:01 Last Admin: 10/09/18 19:34 Dose: Not Given Propofol (Diprivan 20 Ml) Confirm Administered Dose 200 mg .ROUTE .STK-MED ONE Stop: 09/27/18 07:07 Propofol (Diprivan 20 Ml) Confirm Administered Dose 200 mg .ROUTE .STK-MED ONE Stop: 09/27/18 09:05 Sodium Chloride (Saline Flush) 10 ml FLUSH ONETIME ONE Stop: 10/08/18 09:51 Last Admin: 10/08/18 10:44 Dose: 10 ml Tramadol HCl (Ultram) 50 mg PO Q4H PRN PRN Reason: Pain Last Admin: 09/27/18 15:17 Dose: 50 mg - Exam Quality Assessment: Supplemental Oxygen General: Alert, Cooperative, No Acute Distress HEENT: Pupils Equal Neck: Supple, Trachea Midline. No: Lymphadenopathy Lungs: Normal Respiratory Effort, Crackles (few mid lung zone anteriorly ) Cardiovascular: Regular Rate, Regular Rhythm, No Murmurs GI/Abdominal Exam: Normal Bowel Sounds, Soft, Non-Tender, No Distention Extremities: No Pedal Edema. No: Increased Warmth Skin: Warm, Dry Psy/Mental Status: Alert. No: Anxious, Agitated - Problem List & Annotations (1) Acquired hypothyroidism SNOMED Code(s): 341967618 Code(s): E03.9 - HYPOTHYROIDISM, UNSPECIFIED Status: Acute Current Visit : Yes - Problem List Review Problem List Initiated/Reviewed/Updated: Yes - My Orders Last 24 Hours: My Active Orders 10/10/18 09:27 PT Evaluation and Treatment [CONS] Routine 10/10/18 10:02 CULTURE RESPIRATORY + SMEAR [RM] Routine UA W/MICROSCOPIC [URIN] Routine 10/10/18 10:03 T4 FREE [CHEM] Routine TSH ULTRASENSITIVE [CHEM] Urgent 10/10/18 10:04 Head wo Cont [CT] Routine 10/11/18 04:00 C-REACTIVE PROTEIN [CHEM] Timed ESR [SEDIMENTATION RATE MANUAL] [HEME] Timed - Plan Plan:: ASSESSMENT AND PLAN - ARDS/Acute respiratory failure with hypoxia -slow but steady improvement in respiratory status. Still significant hypoxia without supplemental oxygen. Utilizing NIPPV at night. Kidney function tolerating the diuresis well. -Furosemide-40 mg IV q8hrs, reassess in a.m. -Noninvasive positive pressure ventilation, continue to use while sleeping -minimize fluid intake beyond TPN Acute left parietal stroke - exact timing of the stroke is not clear but likely in the last few days. This could explain his apparent visual difficulties as well as his inattentiveness and apathy. I suspect this is thrombotic. There has been no evidence for atrial fibrillation making embolic much lower on the list. -MRI and MRA -Continue aspirin, and clopidogrel -Start statin -Occupational therapy Urinary retention - unable to tolerate removal of Gibbons catheter because of urinary retention. -We attempt to remove Gibbons catheter in the next day or 2 -Flomax 0.4 mg by mouth daily Hypoactive Delirium with mild agitation - no evidence for infection. I suspect this is related to his CVA. -Melatonin 9 mg by mouth daily at bedtime -Haldol 1 mg IV every 2 hours as needed for agitation Pancytopenia - white blood cell count and platelet counts remained low but stable, hemoglobin did improve following transfusion of one unit of red blood cells. Peripheral smear obtained on 26 September shows evidence of pancytopenia but no specific cause. May be nutritional in nature or underlying bone marrow pathology. -Consider bone marrow biopsy for further evaluation, when he becomes more stable Kentrell Merino M.D.
[2018-10-10] MEDS: Potassium Phosphates 22.5 MMOLE in Sodium Chloride 0.9% 100 ML IV SCH ×2 (10:10→14:30)
--- NOTE | 2018-10-10 10:59 | CT ---
Head wo Cont CLINICAL HISTORY: Confusion COMPARISON: 09/28/2018 TECHNIQUE: Transverse scans were obtained from the base of the skull through the vertex without IV contrast on a multislice, multidetector CT scanner. Auto dosage reduction and iterative reconstruction techniques employed. FINDINGS: There is a 2.0 x 2.6 cm hypodense focus in the left posterior parietal region crossing the phillips-white matter junction. There is no evidence to suggest hemorrhage. There is no mass effect or extra-axial collection IMPRESSION: Hypodense focus in the left posterior parietal lobe most suggestive of acute or subacute ischemic infarct. No evidence of hemorrhage or mass effect Atrophic changes
[2018-10-10] MEDS ORDERED: Clopidogrel 75 MG Tab PO ONE (15:12)
[2018-10-10] MEDS: atorvaSTATin 20 MG Tab PO SCH (21:34)
[2018-10-11] MEDS ORDERED: 1: AA 5%/Calcium/D15W/Lytes 1,000 ML with MVI, Adult with Vitamin K 10 ML, Chromium/Copp IV SCH ×3 (00:30)
[2018-10-11] MEDS: Furosemide 40 MG/4 ML VIAL IVPUSH SCH (03:33)
[2018-10-11] MEDS: Albuterol/Ipratropium 3.0-0.5 MG/3 ML Neb Soln NEB SCH ×4 (07:36→21:41)
--- NOTE | 2018-10-11 08:04 | PN ---
DATE OF SERVICE: 10/10/2018 The patient has been afebrile with stable vital signs. For most of the last 36 hours, he has been on nasal cannula oxygen, rather than BiPAP. He was on a BiPAP for part of the night. Overnight, he has been little bit more depressed and not accepting care to any extent. We will have Dr. Merino address that today. Otherwise, his potassium and phosphate are marginally low, and these will be supplemented, continue with the TPN, and otherwise care to go along with the hospitalist. Manfred Nicolas MD /[id number]
[2018-10-11] MEDS ORDERED: [UNRECOGNIZED DRUG - OTHER] IV SCH ×3 (08:30)
[2018-10-11] MEDS ORDERED: MVI IV SCH ×3 (08:30)
[2018-10-11] MEDS ORDERED: AMINO ACIDS IV SCH ×3 (08:30)
[2018-10-11] MEDS ORDERED: DEXTROSE 15% IV SCH ×3 (08:30)
[2018-10-11] MEDS ORDERED: CHROMIUM IV SCH ×3 (08:30)
[2018-10-11] MEDS ORDERED: VITAMIN K IV SCH ×3 (08:30)
--- NOTE | 2018-10-11 08:55 | PCM.PN ---
- General Info Date of Service: 10/11/18 Subjective Update: There were no acute events overnight and the patient was doing fairly well when I saw him this morning. Vision difficulties from yesterday were improving but not resolved. Speech was significantly improved. Appetite had been improving. He was off supplemental oxygen at the time that I saw him. He did not complain of any abdominal pain. Later in the morning he had an episode where he was trying to get out of bed and suddenly became very rigid and looked to the left. He quit breathing and his oxygen saturations quickly dropped. He was helped back into bed and started on a nonrebreather facemask. He was connected back to the telemetry monitoring and noted to be in either a coarse atrial fibrillation or an atrial flutter. The rigid portion of the episode lasted about 40 seconds and after that he seemed to relax. He has slowly woke up following the event but is confused. Chest x-ray was clear, blood gases were normal and EKG showed a sinus rhythm with no ischemia. Functional Status: Reports: Pain Controlled, Tolerating Diet - Review of Systems General: Reports: Weakness. Denies: Fever HEENT: Reports: Visual Changes - Patient Data Vitals - Most Recent: Last Vital Signs Temp 37.0 C 10/11/18 07:22 Pulse 79 10/11/18 07:36 Resp 16 10/11/18 07:22 BP 145/76 H 10/11/18 07:22 Pulse Ox 96 10/11/18 07:36 Weight - Most Recent: 45.677 kg I&O - Last 24 Hours: Intake & Output 10/10/18 10/11/18 10/11/18 22:59 06:59 14:59 Intake Total 1064 770 Output Total 1350 1650 Balance -286 -880 Lab Results Last 24 Hours: Laboratory Results - last 24 hr 10/07/18 10/10/18 10/10/18 Range/Units 06:28 10:03 11:34 WBC (4.5-11.0) K/uL RBC (4.30-5.90) M/uL Hgb (12.0-15.0) g/dL Hct (40.0-54.0) % MCV (80-98) fL MCH (27-31) pg MCHC (32-36) % Plt Count (150-400) K/uL ESR (0-20) mm/hr Sodium (140-148) mmol/L Potassium (3.6-5.2) mmol/L Chloride (100-108) mmol/L Carbon Dioxide (21-32) mmol/L Anion Gap (5.0-14.0) mmol/L BUN (7-18) mg/dL Creatinine (0.8-1.3) mg/dL Est Cr Clr Drug Dosing mL/min Estimated GFR (MDRD) (>60) Glucose (74-106) mg/dL Calcium (8.5-10.1) mg/dL Magnesium (1.8-2.4) mg/dL Total Bilirubin (0.2-1.0) mg/dL AST (15-37) U/L ALT (12-78) U/L Alkaline Phosphatase (46-116) U/L C-Reactive Protein (0.0-0.3) mg/dL NT-Pro-B Natriuret Pep (5-125) pg/mL Total Protein (6.4-8.2) g/dL Albumin (3.4-5.0) g/dL Globulin (2.3-3.5) g/dL Albumin/Globulin Ratio (1.2-2.2) Free T4 1.04 (0.76-1.46) ng/dL TSH, Ultra Sensitive 5.787 H (0.358-3.740) uIU/mL Urine Color Yellow Urine Appearance Clear Urine pH 6.0 (4.5-8.0) Ur Specific [place] 1.010 (1.008-1.030) Urine Protein Trace (NEGATIVE) mg/dL Urine Glucose (UA) Normal (NEGATIVE) mg/dL Urine Ketones Negative (NEGATIVE) mg/dL Urine Occult Blood Trace (NEGATIVE) Urine Nitrite Negative (NEGAITVE) Urine Bilirubin Negative (NEGATIVE) Urine Urobilinogen Normal (NORMAL) mg/dL Ur Leukocyte Esterase Negative (NEGATIVE) Urine RBC 0-5 (0-5) Urine WBC 0-5 (0-5) Ur Epithelial Cells Few Amorphous Sediment Not seen Urine Bacteria Few Urine Mucus Not seen Crossmatch See Detail 10/11/18 10/11/18 Range/Units 03:25 03:25 WBC 3.0 L (4.5-11.0) K/uL RBC 3.29 L (4.30-5.90) M/uL Hgb 9.7 L (12.0-15.0) g/dL Hct 29.4 L (40.0-54.0) % MCV 89 (80-98) fL MCH 30 (27-31) pg MCHC 33 (32-36) % Plt Count 125 L (150-400) K/uL ESR 48 H (0-20) mm/hr Sodium 152 H (140-148) mmol/L Potassium 3.6 (3.6-5.2) mmol/L Chloride 115 H (100-108) mmol/L Carbon Dioxide 28 (21-32) mmol/L Anion Gap 12.6 (5.0-14.0) mmol/L BUN 48 H (7-18) mg/dL Creatinine 0.9 (0.8-1.3) mg/dL Est Cr Clr Drug Dosing 57.80 mL/min Estimated GFR (MDRD) > 60 (>60) Glucose 151 H (74-106) mg/dL Calcium 8.5 (8.5-10.1) mg/dL Magnesium 2.2 (1.8-2.4) mg/dL Total Bilirubin 1.5 H (0.2-1.0) mg/dL AST 104 H (15-37) U/L ALT 78 (12-78) U/L Alkaline Phosphatase 221 H (46-116) U/L C-Reactive Protein 7.93 H (0.0-0.3) mg/dL NT-Pro-B Natriuret Pep 233 H (5-125) pg/mL Total Protein 5.2 L (6.4-8.2) g/dL Albumin 1.9 L (3.4-5.0) g/dL Globulin 3.3 (2.3-3.5) g/dL Albumin/Globulin Ratio 0.6 L (1.2-2.2) Free T4 (0.76-1.46) ng/dL TSH, Ultra Sensitive (0.358-3.740) uIU/mL Urine Color Urine Appearance Urine pH (4.5-8.0) Ur Specific [place] (1.008-1.030) Urine Protein (NEGATIVE) mg/dL Urine Glucose (UA) (NEGATIVE) mg/dL Urine Ketones (NEGATIVE) mg/dL Urine Occult Blood (NEGATIVE) Urine Nitrite (NEGAITVE) Urine Bilirubin (NEGATIVE) Urine Urobilinogen (NORMAL) mg/dL Ur Leukocyte Esterase (NEGATIVE) Urine RBC (0-5) Urine WBC (0-5) Ur Epithelial Cells Amorphous Sediment Urine Bacteria Urine Mucus Crossmatch Med Orders - Current: Current Medications Acetaminophen (Tylenol) 650 mg PO Q4H PRN PRN Reason: ANALGESIA/FEVER Last Admin: 10/08/18 22:32 Dose: 650 mg Acetaminophen (Tylenol) 650 mg RECTAL Q4H PRN PRN Reason: ANALGESIA/FEVER Albuterol (Proventil Neb Soln) 2.5 mg NEB Q2H PRN PRN Reason: Shortness of Breath Last Admin: 10/10/18 00:10 Dose: 2.5 mg Albuterol/Ipratropium (Duoneb 3.0-0.5 Mg/3 Ml) 3 ml NEB QIDRT [facility] Last Admin: 10/11/18 07:36 Dose: 3 ml Aspirin (Halfprin) 81 mg PO DAILY [facility] Last Admin: 10/10/18 10:03 Dose: 81 mg Atorvastatin Calcium (Lipitor) 20 mg PO BEDTIME [facility] Last Admin: 10/10/18 21:34 Dose: 20 mg Benzocaine/Menthol (Cepacol Sore Throat) 1 lozenge MUCMEM 6XDAY PRN PRN Reason: Sore Throat Last Admin: 09/27/18 15:32 Dose: 1 john Clopidogrel Bisulfate (Plavix) 75 mg PO DAILY [facility] Fluticasone Propionate (Flonase) 0 gm NASBOTH DAILY [facility] Last Admin: 10/10/18 10:04 Dose: 2 spray Furosemide (Lasix) 40 mg IVPUSH Q8H [facility] Last Admin: 10/11/18 03:33 Dose: 40 mg Haloperidol Lactate (Haldol) 1 mg IVPUSH Q2H PRN PRN Reason: Agitation Heparin Sodium (Porcine) (Heparin Lock Flush 100 Units/Ml) 250 units 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 Last Admin: 10/11/18 03:43 Dose: 250 units Multivitamins/Minerals 10 ml/Chromium/Copper/Manganese/Seleni/Zn 1 ml/ Amino Acids/Dextrose 2,011 mls @ 82 mls/hr IV .BY DURATION [facility] Last Admin: 10/11/18 08:19 Dose: 82 mls/hr Amino Acids/Dextrose (Clinimix 5/15) 2,000 mls @ 100 mls/hr IV .BY DURATION [facility] Fat Emulsion Intravenous (Intralipid 20%) 100 mls @ 8.3 mls/hr IV ONETIME ONE Stop: 10/12/18 04:02 Lactobacillus Rhamnosus (Culturelle) 1 cap PO BID [facility] Last Admin: 10/10/18 21:34 Dose: 1 cap Levothyroxine Sodium (Synthroid) 100 mcg PO ACBREAKFAST [facility] Last Admin: 10/10/18 08:17 Dose: 100 mcg Loperamide HCl (Imodium) 2 mg PO QID PRN PRN Reason: DIARRHEA Last Admin: 10/06/18 21:53 Dose: 2 mg Loratadine (Claritin Reditabs) 10 mg PO DAILY [facility] Last Admin: 10/10/18 10:04 Dose: 10 mg Morphine Sulfate (Morphine) 4 mg IVPUSH Q2H PRN PRN Reason: air hunger/chest tightness Pantoprazole Sodium (Protonix) 40 mg PO ACBREAKFAST [facility] Last Admin: 10/10/18 08:17 Dose: 40 mg Sodium Chloride (Saline Flush) 5 ml IV 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 Last Admin: 10/08/18 05:46 Dose: 5 ml Sodium Chloride ([place] Nasal [place]) 0 ml ARABELLA Q2H PRN PRN Reason: nasal congestion Tamsulosin HCl (Flomax) 0.4 mg PO DAILY [facility] Last Admin: 10/10/18 10:04 Dose: 0.4 mg Discontinued Medications Acetazolamide (Diamox) 250 mg IVPUSH Q6H [facility] Stop: 10/05/18 22:01 Last Admin: 10/05/18 22:12 Dose: 250 mg Acetazolamide (Diamox) 250 mg IVPUSH Q12H [facility] Stop: 10/06/18 22:01 Last Admin: 10/06/18 21:46 Dose: 250 mg Albuterol/Ipratropium (Duoneb 3.0-0.5 Mg/3 Ml) 3 ml NEB Q6H [facility] Last Admin: 09/29/18 19:53 Dose: 3 ml Albuterol/Ipratropium (Duoneb 3.0-0.5 Mg/3 Ml) 3 ml NEB Q2H PRN PRN Reason: shortness of breath Last Admin: 10/01/18 17:31 Dose: 3 ml Bupivacaine HCl (Marcaine 0.5%) Confirm Administered Dose 50 ml .ROUTE .STK-MED ONE Stop: 09/27/18 07:25 Last Admin: 09/27/18 09:39 Dose: 7 ml Clopidogrel Bisulfate (Plavix) 75 mg PO ONETIME ONE Stop: 10/10/18 15:13 Last Admin: 10/10/18 15:58 Dose: 75 mg Divalproex Sodium (Divalproex Sodium) 250 mg PO BIDMEALS [facility] Last Admin: 10/08/18 09:11 Dose: 250 mg Fentanyl (Sublimaze) Confirm Administered Dose 100 mcg .ROUTE .STK-MED ONE Stop: 09/27/18 07:07 Furosemide (Lasix) 20 mg PO BIDDIURETIC [facility] Last Admin: 09/27/18 15:03 Dose: Not Given Furosemide (Lasix) 20 mg IV ONETIME ONE Stop: 09/27/18 16:01 Last Admin: 09/27/18 15:08 Dose: 20 mg Furosemide (Lasix) 40 mg IVPUSH ONETIME ONE Stop: 09/29/18 22:46 Last Admin: 09/29/18 23:04 Dose: 40 mg Furosemide (Lasix) 40 mg IVPUSH ONETIME ONE Stop: 09/30/18 08:11 Last Admin: 09/30/18 08:03 Dose: 40 mg Furosemide (Lasix) 20 mg PO BIDDIURETIC [facility]SE Last Admin: 10/02/18 10:25 Dose: Not Given Furosemide (Lasix) 20 mg IV ONETIME ONE Stop: 10/01/18 10:01 Last Admin: 10/01/18 09:36 Dose: 20 mg Furosemide (Lasix) 20 mg IVPUSH ONETIME ONE Stop: 10/01/18 18:28 Last Admin: 10/01/18 18:34 Dose: 20 mg Furosemide (Lasix) 40 mg IVPUSH ONETIME ONE Stop: 10/01/18 21:45 Last Admin: 10/01/18 22:21 Dose: 40 mg Furosemide (Lasix) 40 mg IVPUSH ONETIME ONE Stop: 10/02/18 05:01 Last Admin: 10/02/18 05:13 Dose: 40 mg Furosemide 20 mg/ Furosemide (40 mg) 60 mg IV Q8H [facility] Last Admin: 10/03/18 09:11 Dose: 60 mg Furosemide (Lasix) 40 mg IV Q8H [facility] Last Admin: 10/05/18 04:02 Dose: 40 mg Furosemide (Lasix) 40 mg IV DAILY [facility] Last Admin: 10/06/18 09:37 Dose: 40 mg Furosemide (Lasix) 20 mg IV DAILY [facility] Furosemide (Lasix) 20 mg IVPUSH NOW ONE Stop: 10/08/18 10:10 Last Admin: 10/08/18 10:40 Dose: 20 mg Heparin Sodium (Porcine) (Heparin Lock Flush 100 Units/Ml) Confirm Administered Dose 1,500 units .ROUTE .STK-MED ONE Stop: 09/27/18 07:26 Last Admin: 09/27/18 09:39 Dose: 1,500 units Dextrose/Lactated Ringer's (Dextrose 5%-Lactated Ringers) 1,000 mls @ 100 mls/ hr IV ASDIRECTED [facility] Stop: 09/26/18 20:59 Last Admin: 09/26/18 12:03 Dose: 100 mls/hr Albumin Human (Albumin 25%) 25 gm in 100 mls @ 25 mls/hr IV ONETIME ONE Stop: 09/26/18 20:59 Last Admin: 09/26/18 16:54 Dose: 25 mls/hr Multivitamins/Minerals 10 ml/Chromium/Copper/Manganese/Zinc 1 ml/ Thiamine HCl 100 mg/Dextrose/Lactated Ringer's 1,012 mls @ 100 mls/hr IV .Q10H8M [facility] Stop: 09/27/18 13:59 Last Admin: 09/27/18 11:43 Dose: 100 mls/hr Levofloxacin/Dextrose 500 mg/ (Premix) 100 mls @ 100 mls/hr IV ONETIME ONE Stop: 09/27/18 09:29 Last Admin: 09/27/18 20:47 Dose: Not Given Clindamycin Phosphate 900 mg/ (Sodium Chloride) 106 mls @ 212 mls/hr IV ONETIME ONE Stop: 09/27/18 09:59 Last Admin: 09/27/18 20:47 Dose: Not Given Lactated Ringer's (Ringers, Lactated) Confirm Administered Dose 1,000 mls @ as directed .ROUTE .STK-MED ONE Stop: 09/27/18 09:48 Albumin Human (Albumin 25%) 25 gm in 100 mls @ 25 mls/hr IV Q24H [facility] Stop: 09/30/18 15:59 Last Admin: 09/30/18 12:10 Dose: 25 mls/hr Multivitamins/Minerals 10 ml/Chromium/Copper/Manganese/Seleni/Zn 1 ml/ Amino Ac/ Electrol/Dextrose/Calcium 1,011 mls @ 80 mls/hr IV .BY DURATION [facility] Stop: 09/28/18 14:59 Last Admin: 09/27/18 14:31 Dose: 80 mls/hr Amino Ac/Electrol/Dextrose/Calcium (Clinimix E 5/15) 1,000 mls @ 80 mls/hr IV .BY DURATION [facility] Stop: 09/28/18 14:59 Last Admin: 09/28/18 03:13 Dose: 80 mls/hr Fat Emulsion Intravenous (Intralipid 20%) 100 mls @ 8.3 mls/hr IV ONETIME ONE Stop: 09/28/18 04:02 Last Admin: 09/27/18 16:30 Dose: 8.3 mls/hr Sodium Chloride (Normal Saline) 1,000 mls @ 0 mls/hr IV ASDIRECTED [facility] Stop: 09/28/18 11:59 Last Admin: 09/27/18 16:36 Dose: 25 mls/hr Acetaminophen 1,000 mg/ Premix 100 mls @ 400 mls/hr IV NOW ONE Stop: 09/27/18 13:14 Last Admin: 09/27/18 12:56 Dose: 400 mls/hr Levofloxacin/Dextrose 500 mg/ (Premix) 100 mls @ 100 mls/hr IV Q24H [facility] Last Admin: 09/28/18 07:28 Dose: 100 mls/hr Clindamycin Phosphate 900 mg/ (Sodium Chloride) 106 mls @ 212 mls/hr IV Q12H [facility] Last Admin: 09/28/18 21:42 Dose: 212 mls/hr Dextrose/Sodium Chloride (Dextrose 5%-1/2 Ns) 1,000 mls @ 0 mls/hr IV ASDIRECTED [facility] Last Admin: 10/01/18 15:04 Dose: 25 mls/hr Magnesium Sulfate 2 gm/ Premix 50 mls @ 25 mls/hr IV Q6H [facility] Stop: 10/01/18 05:59 Last Admin: 10/01/18 03:28 Dose: 25 mls/hr Albumin Human (Albumin 25%) 25 gm in 100 mls @ 25 mls/hr IV Q24H [facility] Stop: 09/30/18 19:59 Last Admin: 09/30/18 16:39 Dose: 25 mls/hr Multivitamins/Minerals 10 ml/Chromium/Copper/Manganese/Seleni/Zn 1 ml/ Amino Ac/ Electrol/Dextrose/Calcium 1,011 mls @ 80 mls/hr IV .BY DURATION [facility] Stop: 09/30/18 17:15 Last Admin: 09/29/18 16:05 Dose: 80 mls/hr Amino Ac/Electrol/Dextrose/Calcium (Clinimix E 5/15) 1,000 mls @ 80 mls/hr IV .BY DURATION [facility] Stop: 09/30/18 17:15 Last Admin: 09/30/18 05:54 Dose: 80 mls/hr Fat Emulsion Intravenous (Intralipid 20%) 100 mls @ 9 mls/hr IV ONETIME ONE Stop: 09/29/18 05:06 Last Admin: 09/28/18 17:39 Dose: 9 mls/hr Potassium Phosphate 15 mmole/ (Sodium Chloride) 105 mls @ 50 mls/hr IV Q2H [facility] Stop: 09/30/18 15:59 Last Admin: 09/30/18 14:32 Dose: 50 mls/hr Multivitamins/Minerals 10 ml/Chromium/Copper/Manganese/Seleni/Zn 1 ml/ Amino Ac/ Electrol/Dextrose/Calcium 1,011 mls @ 60 mls/hr IV .BY DURATION [facility] Stop: 10/02/18 20:00 Last Infusion: 10/02/18 09:00 Dose: 40 mls/hr Amino Ac/Electrol/Dextrose/Calcium (Clinimix E 5/15) 1,000 mls @ 60 mls/hr IV .BY DURATION [facility] Stop: 10/02/18 20:00 Last Admin: 10/01/18 13:24 Dose: 60 mls/hr Albumin Human (Albumin 25%) 25 gm in 100 mls @ 25 mls/hr IV Q24H [facility] Stop: 10/03/18 15:59 Last Admin: 10/01/18 12:18 Dose: 25 mls/hr Albumin Human (Albumin 25%) 25 gm in 100 mls @ 25 mls/hr IV Q24H [facility] Stop: 10/03/18 19:59 Last Admin: 10/01/18 16:38 Dose: 25 mls/hr Fat Emulsion Intravenous (Intralipid 20%) 250 mls @ 21 mls/hr IV ONETIME ONE Stop: 10/02/18 05:54 Last Admin: 10/01/18 17:31 Dose: 21 mls/hr Fat Emulsion Intravenous (Intralipid 20%) 250 mls @ 21 mls/hr IV Q24H [facility] Potassium Chloride 20 meq/Lidocaine HCl 2 ml/ Sodium Chloride 112 mls @ 50 mls/ hr IV Q2H [facility] Stop: 10/02/18 07:29 Last Admin: 10/02/18 06:32 Dose: Not Given Potassium Chloride 40 meq/ (Premix) 100 mls @ 25 mls/hr IV ONETIME ONE Stop: 10/02/18 07:30 Last Admin: 10/02/18 03:50 Dose: 25 mls/hr Potassium Chloride (Kcl 40 Meq In Water 100 Ml) Confirm Administered Dose 100 mls @ as directed .ROUTE .STK-MED ONE Stop: 10/02/18 03:50 Last Admin: 10/02/18 04:03 Dose: Not Given Potassium Phosphate 22.5 mmole (/ Sodium Chloride) 107.5 mls @ 26 mls/hr IV Q4H [facility] Stop: 10/02/18 18:29 Last Admin: 10/02/18 14:34 Dose: 26 mls/hr Multivitamins/Minerals 10 ml/Chromium/Copper/Manganese/Seleni/Zn 1 ml/ Amino Ac/ Electrol/Dextrose/Calcium 1,011 mls @ 40 mls/hr IV .BY DURATION [facility] Stop: 10/03/18 23:30 Last Admin: 10/03/18 05:34 Dose: 40 mls/hr Amino Ac/Electrol/Dextrose/Calcium (Clinimix E 01/11) 1,000 mls @ 40 mls/hr IV .BY DURATION [facility] Stop: 10/03/18 23:30 Potassium Chloride 40 meq/ (Premix) 100 mls @ 25 mls/hr IV ONETIME ONE Stop: 10/03/18 12:59 Last Admin: 10/03/18 08:20 Dose: 25 mls/hr Linezolid 600 mg/ Premix 300 mls @ 300 mls/hr IV Q12H [facility] Last Admin: 10/07/18 08:06 Dose: 300 mls/hr Multivitamins/Minerals 10 ml/Chromium/Copper/Manganese/Seleni/Zn 1 ml/ Amino Ac/ Electrol/Dextrose/Calcium 1,011 mls @ 40 mls/hr IV .BY DURATION [facility] Last Admin: 10/04/18 04:56 Dose: 40 mls/hr Amino Ac/Electrol/Dextrose/Calcium (Clinimix E 5/15) 1,000 mls @ 40 mls/hr IV .BY DURATION [facility] Piperacillin/Tazobactam/ (Dextrose 3.375 gm/ Premix) 50 mls @ 100 mls/hr IV Q6H [facility] Last Admin: 10/07/18 04:13 Dose: 100 mls/hr Levofloxacin/Dextrose 750 mg/ (Premix) 150 mls @ 100 mls/hr IV Q24H [facility] Last Admin: 10/08/18 16:08 Dose: 100 mls/hr Potassium Phosphate 22.5 mmole (/ Sodium Chloride) 107.5 mls @ 27 mls/hr IV Q4H [facility] Stop: 10/04/18 17:59 Last Admin: 10/04/18 13:34 Dose: 27 mls/hr Multivitamins/Minerals 10 ml/Chromium/Copper/Manganese/Seleni/Zn 1 ml/ Amino Ac/ Electrol/Dextrose/Calcium 1,011 mls @ 40 mls/hr IV .BY DURATION [facility] Stop: 10/05/18 21:59 Last Admin: 10/05/18 04:44 Dose: 40 mls/hr Amino Ac/Electrol/Dextrose/Calcium (Clinimix E 5/15) 1,000 mls @ 40 mls/hr IV .BY DURATION [facility] Stop: 10/05/18 21:59 Potassium Chloride 20 meq/ (Premix) 100 mls @ 50 mls/hr IV ONETIME ONE Stop: 10/05/18 09:59 Last Admin: 10/05/18 08:01 Dose: 50 mls/hr Potassium Chloride 40 meq/ (Premix) 100 mls @ 25 mls/hr IV ONETIME ONE Stop: 10/05/18 13:59 Last Admin: 02/06/19 10:16 Dose: 25 mls/hr Magnesium Sulfate 2 gm/ Premix 50 mls @ 25 mls/hr IV Q6H [facility] Stop: 10/07/18 05:59 Last Admin: 10/07/18 04:14 Dose: 25 mls/hr Multivitamins/Minerals 10 ml/Chromium/Copper/Manganese/Seleni/Zn 1 ml/ Amino Ac/ Electrol/Dextrose/Calcium 1,011 mls @ 60 mls/hr IV .BY DURATION [facility] Stop: 10/06/18 13:55 Amino Ac/Electrol/Dextrose/Calcium (Clinimix E 5/15) 1,000 mls @ 60 mls/hr IV .BY DURATION [facility] Stop: 10/06/18 13:55 Last Admin: 10/06/18 00:34 Dose: 60 mls/hr Potassium Chloride 40 meq/ (Premix) 100 mls @ 25 mls/hr IV ONETIME ONE Stop: 10/05/18 23:59 Last Admin: 10/05/18 20:05 Dose: 25 mls/hr Potassium Phosphate 20 mmole/ (Sodium Chloride) 106.6667 mls @ 35 mls/hr IV Q3H [facility] Stop: 10/06/18 16:59 Last Admin: 10/06/18 15:19 Dose: 35 mls/hr Multivitamins/Minerals 10 ml/Chromium/Copper/Manganese/Seleni/Zn 1 ml/ Amino Ac/ Electrol/Dextrose/Calcium 1,011 mls @ 60 mls/hr IV .BY DURATION [facility] Stop: 10/10/18 19:00 Last Admin: 10/09/18 15:06 Dose: 60 mls/hr Amino Ac/Electrol/Dextrose/Calcium (Clinimix E 5/15) 1,000 mls @ 60 mls/hr IV .BY DURATION [facility] Stop: 10/10/18 19:00 Last Admin: 10/10/18 08:18 Dose: 60 mls/hr Potassium Phosphate 20 mmole/ (Sodium Chloride) 106.6667 mls @ 36 mls/hr IV Q3H [facility] Stop: 10/07/18 17:58 Last Admin: 10/07/18 14:29 Dose: 36 mls/hr Linezolid 600 mg/ Premix 300 mls @ 300 mls/hr IV Q12H [facility] Last Admin: 10/08/18 22:32 Dose: 300 mls/hr Meropenem 1 gm/ Sodium (Chloride) 100 mls @ 200 mls/hr IV Q8H [facility] Last Admin: 10/09/18 02:33 Dose: 200 mls/hr Sodium Chloride (Normal Saline) 80 mls @ 3.5 mls/sec IV ONETIME ONE Stop: 10/08/18 09:51 Last Admin: 10/08/18 10:43 Dose: 4 mls/sec Meropenem 1 gm/ Sodium (Chloride) 50 mls @ 100 mls/hr IV Q8H [facility] Potassium Chloride 40 meq/ (Premix) 100 mls @ 25 mls/hr IV ONETIME ONE Stop: 10/09/18 13:29 Last Admin: 10/09/18 10:08 Dose: 25 mls/hr Potassium Phosphate 22.5 mmole (/ Sodium Chloride) 107.5 mls @ 26 mls/hr IV Q4H [facility] Stop: 10/10/18 17:29 Last Admin: 10/10/18 14:30 Dose: 26 mls/hr Multivitamins/Minerals 10 ml/Chromium/Copper/Manganese/Seleni/Zn 1 ml/ Amino Ac/ Electrol/Dextrose/Calcium 1,011 mls @ 60 mls/hr IV .BY DURATION [facility] Last Admin: 10/11/18 02:07 Dose: 60 mls/hr Amino Ac/Electrol/Dextrose/Calcium (Clinimix E 5/15) 1,000 mls @ 60 mls/hr IV .BY DURATION [facility] Iopamidol (Isovue-370 (76%)) 52 ml IV . DIRECTED [facility] Stop: 10/08/18 11:00 Last Admin: 10/08/18 10:44 Dose: 52 ml Lidocaine HCl (Xylocaine 2% Jelly) 10 ml MUCMEM ONETIME ONE Stop: 10/01/18 21:56 Last Admin: 10/01/18 22:04 Dose: 10 ml Lidocaine HCl (Xylocaine 2% Jelly) 10 ml MUCM[facility] ONETIME ONE Stop: 10/07/18 11:31 Last Admin: 10/07/18 13:49 Dose: 10 ml Lidocaine/Epinephrine (Xylocaine 1% With Epinephrine 1:100,000) Confirm Administered Dose 50 ml .ROUTE .STK-MED ONE Stop: 09/27/18 07:26 Last Admin: 09/27/18 09:40 Dose: 7 ml Loperamide HCl (Imodium) 2 mg PO QID [facility] Last Admin: 10/02/18 05:13 Dose: 2 mg Lorazepam (Ativan) 0.5 mg IVPUSH Q4H PRN PRN Reason: Anxiety Last Admin: 10/07/18 04:13 Dose: 0.5 mg Melatonin (Melatonin) 9 mg PO BEDTIME [facility] Last Admin: 10/09/18 21:33 Dose: Not Given Midazolam HCl (Versed 1 Mg/Ml) Confirm Administered Dose 2 mg .ROUTE .STK-MED ONE Stop: 09/27/18 07:08 Non-Formulary Medication (Total Parenteral Nutrition, Central) 1,000 ml .XX .Continue Order [facility] Stop: 09/29/18 12:00 Non-Formulary Medication (Total Parenteral Nutrition, Central) 1,000 ml .XX .Continue Order [facility] Stop: 09/30/18 09:00 Pantoprazole Sodium (Protonix Iv) 40 mg IV Q24H [facility] Last Admin: 09/29/18 14:31 Dose: 40 mg Polyethylene Glycol (Miralax) 238 gm PO ONETIME ONE Stop: 09/26/18 17:01 Last Admin: 09/26/18 16:54 Dose: 238 gram Potassium Chloride (Klor-Con M20) 40 meq PO ONETIME ONE Stop: 10/06/18 10:01 Last Admin: 10/06/18 09:55 Dose: 40 meq Potassium Chloride (Klor-Con M20) 40 meq PO ONETIME ONE Stop: 10/06/18 17:46 Last Admin: 10/06/18 21:46 Dose: Not Given Potassium Chloride (Klor-Con M20) 40 meq PO ONETIME ONE Stop: 10/06/18 21:01 Last Admin: 10/06/18 21:46 Dose: 40 meq Potassium Chloride (Klor-Con M20) 40 meq PO ONETIME ONE Stop: 10/07/18 08:46 Last Admin: 10/07/18 09:00 Dose: 40 meq Potassium Chloride (Klor-Con M20) 40 meq PO ONETIME ONE Stop: 10/07/18 12:01 Last Admin: 10/07/18 11:48 Dose: 40 meq Potassium Chloride (Klor-Con M20) 40 meq PO ONETIME ONE Stop: 10/09/18 09:01 Last Admin: 10/09/18 09:07 Dose: 40 meq Potassium Chloride (Klor-Con M20) 40 meq PO ONETIME ONE Stop: 10/09/18 12:01 Last Admin: 10/09/18 12:54 Dose: 40 meq Potassium Chloride (Klor-Con M20) 40 meq PO ONETIME ONE Stop: 10/09/18 17:01 Last Admin: 10/09/18 19:34 Dose: Not Given Propofol (Diprivan 20 Ml) Confirm Administered Dose 200 mg .ROUTE .STK-MED ONE Stop: 09/27/18 07:07 Propofol (Diprivan 20 Ml) Confirm Administered Dose 200 mg .ROUTE .STK-MED ONE Stop: 09/27/18 09:05 Sodium Chloride (Saline Flush) 10 ml FLUSH ONETIME ONE Stop: 10/08/18 09:51 Last Admin: 10/08/18 10:44 Dose: 10 ml Tramadol HCl (Ultram) 50 mg PO Q4H PRN PRN Reason: Pain Last Admin: 09/27/18 15:17 Dose: 50 mg - Exam Quality Assessment: No: Supplemental Oxygen General: Alert, Oriented, Cooperative, No Acute Distress HEENT: Pupils Reactive. No: Scleral Icterus Neck: Supple Lungs: Normal Respiratory Effort, Crackles (few both bases) Cardiovascular: Regular Rate, Regular Rhythm GI/Abdominal Exam: Soft, No Distention Extremities: No Pedal Edema. No: Increased Warmth Skin: Warm, Dry Psy/Mental Status: Alert, Normal Affect - Problem List & Annotations (1) Acquired hypothyroidism SNOMED Code(s): 401158796 Code(s): E03.9 - HYPOTHYROIDISM, UNSPECIFIED Status: Acute Current Visit : Yes (2) Seizure as late effect of cerebrovascular accident (CVA) SNOMED Code(s): 532784346327753 Code(s): I69.398 - OTHER SEQUELAE OF CEREBRAL INFARCTION; R56.9 - UNSPECIFIED CONVULSIONS Status: Suspected Current Visit: Yes (3) Cerebrovascular accident (CVA) involving left cerebral hemisphere SNOMED Code(s): 166367113 Code(s): I63.9 - CEREBRAL INFARCTION, UNSPECIFIED Status: Acute Current Visit: Yes - Problem List Review Problem List Initiated/Reviewed/Updated: Yes - My Orders Last 24 Hours: My Active Orders 10/10/18 09:27 PT Evaluation and Treatment [CONS] Routine 10/10/18 10:06 Sodium Chloride 0.65% [[place] Nasal [place]] 0 ml ARABELLA Q2H PRN 10/10/18 21:00 atorvaSTATin [Lipitor] 20 mg PO BEDTIME 10/11/18 07:00 Ang Head wo Cont [MR] Routine Brain wo Cont [MR] Routine 10/11/18 09:00 Clopidogrel [Plavix] 75 mg PO DAILY - Plan Plan:: ASSESSMENT AND PLAN - ARDS/Acute respiratory failure with hypoxia -slow but steady improvement in respiratory status and he is off supplemental oxygen as as of this morning but now back on after his unresponsive episode. Chest x-ray is nearly clear at this point. -Discontinue diuresis, reassessed daily -Supplement oxygen as needed -Noninvasive positive pressure ventilation, continue to use while sleeping -minimize fluid intake beyond TPN Acute left parietal stroke - exact timing of the stroke is not clear but likely in the last few days. This could explain his apparent visual difficulties as well as his inattentiveness and apathy. I suspect this is thrombotic. We were unable to complete an MRI today because of his unresponsive episode. -MRI and MRA -Continue aspirin, and clopidogrel -Start statin -Occupational therapy Probable seizure - episode of rigidity and unresponsiveness with what appears to be a postictal period. Likely related to recent CVA. -Start IV Keppra Urinary retention - unable to tolerate removal of Gibbons catheter because of urinary retention. -We attempt to remove Gibbons catheter in the next day or 2 -Flomax 0.4 mg by mouth daily Hypoactive Delirium with mild agitation - no evidence for infection. I suspect this is related to his CVA and he was doing much better this morning prior to his probable seizure. -Melatonin 9 mg by mouth daily at bedtime Pancytopenia - white blood cell count and platelet counts remained low but stable, hemoglobin did improve following transfusion of one unit of red blood cells. Peripheral smear obtained on 26 September shows evidence of pancytopenia but no specific cause. May be nutritional in nature or underlying bone marrow pathology. -Consider bone marrow biopsy for further evaluation, when he becomes more stable Kentrell Merino M.D.
[2018-10-11] MEDS: Tamsulosin 0.4 MG Cap.ER PO SCH (09:35)
[2018-10-11] MEDS: Pantoprazole 40 MG Tab.CR PO SCH (09:35)
[2018-10-11] MEDS: Loratadine 10 MG Tab.DIS PO SCH (09:35)
[2018-10-11] MEDS: Aspirin 81 MG Tab.EC PO SCH (09:35)
[2018-10-11] MEDS: Clopidogrel 75 MG Tab PO SCH (09:35)
[2018-10-11] MEDS: Lactobacillus Rhamnosus GG (Probiotic) Cap PO SCH ×2 (09:35→21:41)
[2018-10-11] MEDS: Levothyroxine 100 MCG Tab PO SCH (09:36)
[2018-10-11] MEDS: Loperamide 2 MG Cap PO PRN (09:46)
--- NOTE | 2018-10-11 12:23 | CRLCR ---
INDICATION: Hypoxia. COMPARISON: Portable chest dated 10/10/2018. TECHNIQUE: Portable AP erect chest performed at 11:45 a.m. FINDINGS: As compared to yesterday`s exam there has been an a slight decrease in the pulmonary vascular congestion. There are still residual central peribronchial ground-glass opacities. The heart currently is within the upper range of normal. The internal venous jugular catheter remains in stable position. There is no evidence of pneumothorax. IMPRESSION: Partial clearance of interstitial pulmonary edema. Dictated by Jason Jacobo MD @ 10/11/2018 12:22:43 PM Dictated by: Jason Jacobo MD @ 10/11/2018 12:23:05 (Electronically Signed)
[2018-10-11] MEDS: levETIRAcetam 500 MG in Sodium Chloride 0.9% 100 ML IV SCH (12:30)
[2018-10-11] MEDS: Fluticasone Propionate Nasal Spray 16 GM Bottle NASBOTH SCH (14:34)
[2018-10-11] MEDS ORDERED: Fat Emulsion 100 ML IV ONE (16:00)
[2018-10-11] MEDS: atorvaSTATin 20 MG Tab PO SCH (21:41)
[2018-10-12] MEDS: levETIRAcetam 500 MG in Sodium Chloride 0.9% 100 ML IV SCH ×2 (00:29→11:14)
[2018-10-12] MEDS: Haloperidol Lactate 5 MG/ML SDV IVPUSH PRN (03:34)
[2018-10-12] MEDS: Albuterol/Ipratropium 3.0-0.5 MG/3 ML Neb Soln NEB SCH ×4 (07:02→21:15)
[2018-10-12] MEDS: Levothyroxine 100 MCG Tab PO SCH (07:47)
[2018-10-12] MEDS: Pantoprazole 40 MG Tab.CR PO SCH (07:48)
[2018-10-12] MEDS: WATER IV SCH ×6 (08:43→16:36)
[2018-10-12] MEDS: POTASSIUM PHOSPHATES IV SCH ×6 (08:43→16:36)
[2018-10-12] MEDS: DEXTROSE IV SCH ×6 (08:43→16:36)
[2018-10-12] MEDS: Lactobacillus Rhamnosus GG (Probiotic) Cap PO SCH ×2 (08:43→21:14)
[2018-10-12] MEDS: Clopidogrel 75 MG Tab PO SCH (08:44)
[2018-10-12] MEDS: Tamsulosin 0.4 MG Cap.ER PO SCH (08:44)
[2018-10-12] MEDS: Loratadine 10 MG Tab.DIS PO SCH (08:44)
[2018-10-12] MEDS: Aspirin 81 MG Tab.EC PO SCH (08:44)
--- NOTE | 2018-10-12 08:58 | PCM.PN ---
- General Info Date of Service: 10/12/18 Subjective Update: There were no acute changes overnight. The patient did have some agitation which responded very well to 1 small dose of Haldol. Respiratory status has improved and he is off supplemental oxygen this morning. He is much more alert and interactive and doing well like yesterday morning before the presumed seizure. He is not complaining of abdominal pain. He has not had breakfast yet but does feel hungry and did drink some chocolate milk. No fevers. Functional Status: Reports: Pain Controlled, Tolerating Diet - Review of Systems General: Reports: Weakness Psychiatric: Reports: Agitation - Patient Data Vitals - Most Recent: Last Vital Signs Temp 36.1 C 10/12/18 08:00 Pulse 70 10/12/18 08:00 Resp 17 10/12/18 08:00 BP 146/75 H 10/12/18 08:00 Pulse Ox 91 L 10/12/18 08:00 Weight - Most Recent: 45.677 kg I&O - Last 24 Hours: Intake & Output 10/11/18 10/12/18 10/12/18 22:59 06:59 14:59 Intake Total 738 1055 340 Output Total 550 800 Balance 188 255 340 Lab Results Last 24 Hours: Laboratory Results - last 24 hr 10/11/18 10/12/18 10/12/18 Range/Units 11:40 04:36 04:36 WBC 4.1 L (4.5-11.0) K/uL RBC 3.17 L (4.30-5.90) M/uL Hgb 9.6 L (12.0-15.0) g/dL Hct 29.2 L (40.0-54.0) % MCV 92 (80-98) fL MCH 30 (27-31) pg MCHC 33 (32-36) % Plt Count 138 L (150-400) K/uL Puncture Site Lt brachial ABG pH 7.409 (7.350-7.450) ABG pCO2 40.6 (35.0-42.0) mmHg ABG pO2 160.0 H (75.0-100.0) mmHg ABG HCO3 25.1 (22.0-26.0) mmol/L ABG Total CO2 23.2 (23.0-27.0) mmol/L ABG O2 Saturation 96.8 (95.0-98.0) % ABG O2 Content 14.1 L (15.0-23.0) %vol ABG Base Excess 1.0 mm/L ABG Hemoglobin 10.4 L (13.5-18.0) g/dL ABG Oxyhemoglobin 94.3 % ABG Carboxyhemoglobin 0.1 (0.0-1.6) % ABG Methemoglobin 2.5 % Bob Test Not performed O2 Delivery Device Bipap Oxygen Flow Rate L Sodium 153 H (140-148) mmol/L Potassium 3.7 (3.6-5.2) mmol/L Chloride 117 H (100-108) mmol/L Carbon Dioxide 31 (21-32) mmol/L Anion Gap 8.7 (5.0-14.0) mmol/L BUN 46 H (7-18) mg/dL Creatinine 0.8 (0.8-1.3) mg/dL Est Cr Clr Drug Dosing 65.03 mL/min Estimated GFR (MDRD) > 60 (>60) Glucose 178 H (74-106) mg/dL Calcium 8.7 (8.5-10.1) mg/dL Phosphorus 1.9 L (2.5-4.9) mg/dL Magnesium 2.0 (1.8-2.4) mg/dL Total Bilirubin 1.3 H (0.2-1.0) mg/dL AST 79 H (15-37) U/L ALT 82 H (12-78) U/L Alkaline Phosphatase 214 H (46-116) U/L NT-Pro-B Natriuret Pep 165 H (5-125) pg/mL Total Protein 5.1 L (6.4-8.2) g/dL Albumin 2.1 L (3.4-5.0) g/dL Globulin 3.0 (2.3-3.5) g/dL Albumin/Globulin Ratio 0.7 L (1.2-2.2) TSH, Ultra Sensitive (0.358-3.740) uIU/mL 10/12/18 Range/Units 05:00 WBC (4.5-11.0) K/uL RBC (4.30-5.90) M/uL Hgb (12.0-15.0) g/dL Hct (40.0-54.0) % MCV (80-98) fL MCH (27-31) pg MCHC (32-36) % Plt Count (150-400) K/uL Puncture Site ABG pH (7.350-7.450) ABG pCO2 (35.0-42.0) mmHg ABG pO2 (75.0-100.0) mmHg ABG HCO3 (22.0-26.0) mmol/L ABG Total CO2 (23.0-27.0) mmol/L ABG O2 Saturation (95.0-98.0) % ABG O2 Content (15.0-23.0) %vol ABG Base Excess mm/L ABG Hemoglobin (13.5-18.0) g/dL ABG Oxyhemoglobin % ABG Carboxyhemoglobin (0.0-1.6) % ABG Methemoglobin % Bob Test O2 Delivery Device Oxygen Flow Rate L Sodium (140-148) mmol/L Potassium (3.6-5.2) mmol/L Chloride (100-108) mmol/L Carbon Dioxide (21-32) mmol/L Anion Gap (5.0-14.0) mmol/L BUN (7-18) mg/dL Creatinine (0.8-1.3) mg/dL Est Cr Clr Drug Dosing mL/min Estimated GFR (MDRD) (>60) Glucose (74-106) mg/dL Calcium (8.5-10.1) mg/dL Phosphorus (2.5-4.9) mg/dL Magnesium (1.8-2.4) mg/dL Total Bilirubin (0.2-1.0) mg/dL AST (15-37) U/L ALT (12-78) U/L Alkaline Phosphatase (46-116) U/L NT-Pro-B Natriuret Pep (5-125) pg/mL Total Protein (6.4-8.2) g/dL Albumin (3.4-5.0) g/dL Globulin (2.3-3.5) g/dL Albumin/Globulin Ratio (1.2-2.2) TSH, Ultra Sensitive 4.842 H (0.358-3.740) uIU/mL Med Orders - Current: Current Medications Acetaminophen (Tylenol) 650 mg PO Q4H PRN PRN Reason: ANALGESIA/FEVER Last Admin: 10/08/18 22:32 Dose: 650 mg Acetaminophen (Tylenol) 650 mg RECTAL Q4H PRN PRN Reason: ANALGESIA/FEVER Albuterol (Proventil Neb Soln) 2.5 mg NEB Q2H PRN PRN Reason: Shortness of Breath Last Admin: 10/10/18 00:10 Dose: 2.5 mg Albuterol/Ipratropium (Duoneb 3.0-0.5 Mg/3 Ml) 3 ml NEB QIDRT [facility] Last Admin: 10/12/18 07:02 Dose: 3 ml Aspirin (Halfprin) 81 mg PO DAILY [facility] Last Admin: 10/12/18 08:44 Dose: 81 mg Atorvastatin Calcium (Lipitor) 20 mg PO BEDTIME [facility] Last Admin: 10/11/18 21:41 Dose: 20 mg Benzocaine/Menthol (Cepacol Sore Throat) 1 lozenge MUCMEM 6XDAY PRN PRN Reason: Sore Throat Last Admin: 09/27/18 15:32 Dose: 1 john Clopidogrel Bisulfate (Plavix) 75 mg PO DAILY [facility] Last Admin: 10/12/18 08:44 Dose: 75 mg Fluticasone Propionate (Flonase) 0 gm NASBOTH DAILY [facility] Last Admin: 10/11/18 14:34 Dose: Not Given Haloperidol Lactate (Haldol) 1 mg IVPUSH Q2H PRN PRN Reason: Agitation Last Admin: 10/12/18 03:34 Dose: 1 mg Heparin Sodium (Porcine) (Heparin Lock Flush 100 Units/Ml) 250 units 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 Last Admin: 10/11/18 14:57 Dose: 250 units Levetiracetam 500 mg/ Sodium (Chloride) 105 mls @ 400 mls/hr IV Q12H [facility] Stop: 10/12/18 14:00 Last Admin: 10/12/18 00:29 Dose: 400 mls/hr Multivitamins/Minerals 10 ml/Chromium/Copper/Manganese/Seleni/Zn 1 ml/ Amino Acids/Dextrose 2,011 mls @ 82 mls/hr IV .BY DURATION [facility] Amino Acids/Dextrose (Clinimix 5/15) 2,000 mls @ 80 mls/hr IV .BY DURATION [facility] Potassium Phosphate 20 mmole/ (Dextrose/Water) 106.6667 mls @ 35 mls/hr IV Q3H [facility] Stop: 10/12/18 17:59 Last Admin: 10/12/18 08:43 Dose: 35 mls/hr Lactobacillus Rhamnosus (Culturelle) 1 cap PO BID [facility] Last Admin: 10/12/18 08:43 Dose: 1 cap Levothyroxine Sodium (Synthroid) 100 mcg PO ACBREAKFAST [facility] Last Admin: 10/12/18 07:47 Dose: 100 mcg Loperamide HCl (Imodium) 2 mg PO QID PRN PRN Reason: DIARRHEA Last Admin: 10/11/18 09:46 Dose: 2 mg Loratadine (Claritin Reditabs) 10 mg PO DAILY [facility] Last Admin: 10/12/18 08:44 Dose: 10 mg Morphine Sulfate (Morphine) 4 mg IVPUSH Q2H PRN PRN Reason: air hunger/chest tightness Pantoprazole Sodium (Protonix) 40 mg PO ACBREAKFAST [facility] Last Admin: 10/12/18 07:48 Dose: 40 mg Sodium Chloride (Saline Flush) 5 ml IV 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0-0.5 Mg/3 Ml) 3 ml NEB Q6H [facility] Last Admin: 09/29/18 19:53 Dose: 3 ml Albuterol/Ipratropium (Duoneb 3.0-0.5 Mg/3 Ml) 3 ml NEB Q2H PRN PRN Reason: shortness of breath Last Admin: 10/01/18 17:31 Dose: 3 ml Bupivacaine HCl (Marcaine 0.5%) Confirm Administered Dose 50 ml .ROUTE .STK-MED ONE Stop: 09/27/18 07:25 Last Admin: 09/27/18 09:39 Dose: 7 ml Clopidogrel Bisulfate (Plavix) 75 mg PO ONETIME ONE Stop: 10/10/18 15:13 Last Admin: 10/10/18 15:58 Dose: 75 mg Divalproex Sodium (Divalproex Sodium) 250 mg PO BIDMEALS [facility] Last Admin: 10/08/18 09:11 Dose: 250 mg Fentanyl (Sublimaze) Confirm Administered Dose 100 mcg .ROUTE .STK-MED ONE Stop: 09/27/18 07:07 Furosemide (Lasix) 20 mg PO BIDDIURETIC [facility] Last Admin: 09/27/18 15:03 Dose: Not Given Furosemide (Lasix) 20 mg IV ONETIME ONE Stop: 09/27/18 16:01 Last Admin: 09/27/18 15:08 Dose: 20 mg Furosemide (Lasix) 40 mg IVPUSH ONETIME ONE Stop: 09/29/18 22:46 Last Admin: 09/29/18 23:04 Dose: 40 mg Furosemide (Lasix) 40 mg IVPUSH ONETIME ONE Stop: 09/30/18 08:11 Last Admin: 09/30/18 08:03 Dose: 40 mg Furosemide (Lasix) 20 mg PO BIDDIURETIC [facility] Last Admin: 10/02/18 10:25 Dose: Not Given Furosemide (Lasix) 20 mg IV ONETIME ONE Stop: 10/01/18 10:01 Last Admin: 10/01/18 09:36 Dose: 20 mg Furosemide (Lasix) 20 mg IVPUSH ONETIME ONE Stop: 10/01/18 18:28 Last Admin: 10/01/18 18:34 Dose: 20 mg Furosemide (Lasix) 40 mg IVPUSH ONETIME ONE Stop: 10/01/18 21:45 Last Admin: 10/01/18 22:21 Dose: 40 mg Furosemide (Lasix) 40 mg IVPUSH ONETIME ONE Stop: 10/02/18 05:01 Last Admin: 10/02/18 05:13 Dose: 40 mg Furosemide 20 mg/ Furosemide (40 mg) 60 mg IV Q8H [facility] Last Admin: 10/03/18 09:11 Dose: 60 mg Furosemide (Lasix) 40 mg IV Q8H [facility] Last Admin: 10/05/18 04:02 Dose: 40 mg Furosemide (Lasix) 40 mg IV DAILY [facility] Last Admin: 10/06/18 09:37 Dose: 40 mg Furosemide (Lasix) 20 mg IV DAILY [facility] Furosemide (Lasix) 20 mg IVPUSH NOW ONE Stop: 10/08/18 10:10 Last Admin: 10/08/18 10:40 Dose: 20 mg Furosemide (Lasix) 40 mg IVPUSH Q8H [facility] Last Admin: 10/11/18 03:33 Dose: 40 mg Haloperidol Lactate (Haldol) 1 mg IVPUSH Q2H PRN PRN Reason: Agitation Heparin Sodium (Porcine) (Heparin Lock Flush 100 Units/Ml) Confirm Administered Dose 1,500 units .ROUTE .STK-MED ONE Stop: 09/27/18 07:26 Last Admin: 09/27/18 09:39 Dose: 1,500 units Dextrose/Lactated Ringer's (Dextrose 5%-Lactated Ringers) 1,000 mls @ 100 mls/ hr IV ASDIRECTED [facility] Stop: 09/26/18 20:59 Last Admin: 09/26/18 12:03 Dose: 100 mls/hr Albumin Human (Albumin 25%) 25 gm in 100 mls @ 25 mls/hr IV ONETIME ONE Stop: 09/26/18 20:59 Last Admin: 09/26/18 16:54 Dose: 25 mls/hr Multivitamins/Minerals 10 ml/Chromium/Copper/Manganese/Zinc 1 ml/ Thiamine HCl 100 mg/Dextrose/Lactated Ringer's 1,012 mls @ 100 mls/hr IV .Q10H8M [facility] Stop: 09/27/18 13:59 Last Admin: 09/27/18 11:43 Dose: 100 mls/hr Levofloxacin/Dextrose 500 mg/ (Premix) 100 mls @ 100 mls/hr IV ONETIME ONE Stop: 09/27/18 09:29 Last Admin: 09/27/18 20:47 Dose: Not Given Clindamycin Phosphate 900 mg/ (Sodium Chloride) 106 mls @ 212 mls/hr IV ONETIME ONE Stop: 09/27/18 09:59 Last Admin: 09/27/18 20:47 Dose: Not Given Lactated Ringer's (Ringers, Lactated) Confirm Administered Dose 1,000 mls @ as directed .ROUTE .STK-MED ONE Stop: 09/27/18 09:48 Albumin Human (Albumin 25%) 25 gm in 100 mls @ 25 mls/hr IV Q24H [facility] Stop: 09/30/18 15:59 Last Admin: 09/30/18 12:10 Dose: 25 mls/hr Multivitamins/Minerals 10 ml/Chromium/Copper/Manganese/Seleni/Zn 1 ml/ Amino Ac/ Electrol/Dextrose/Calcium 1,011 mls @ 80 mls/hr IV .BY DURATION [facility] Stop: 09/28/18 14:59 Last Admin: 09/27/18 14:31 Dose: 80 mls/hr Amino Ac/Electrol/Dextrose/Calcium (Clinimix E 5/15) 1,000 mls @ 80 mls/hr IV .BY DURATION [facility] Stop: 09/28/18 14:59 Last Admin: 09/28/18 03:13 Dose: 80 mls/hr Fat Emulsion Intravenous (Intralipid 20%) 100 mls @ 8.3 mls/hr IV ONETIME ONE Stop: 09/28/18 04:02 Last Admin: 09/27/18 16:30 Dose: 8.3 mls/hr Sodium Chloride (Normal Saline) 1,000 mls @ 0 mls/hr IV ASDIRECTED [facility] Stop: 09/28/18 11:59 Last Admin: 09/27/18 16:36 Dose: 25 mls/hr Acetaminophen 1,000 mg/ Premix 100 mls @ 400 mls/hr IV NOW ONE Stop: 09/27/18 13:14 Last Admin: 09/27/18 12:56 Dose: 400 mls/hr Levofloxacin/Dextrose 500 mg/ (Premix) 100 mls @ 100 mls/hr IV Q24H [facility] Last Admin: 09/28/18 07:28 Dose: 100 mls/hr Clindamycin Phosphate 900 mg/ (Sodium Chloride) 106 mls @ 212 mls/hr IV Q12H [facility] Last Admin: 09/28/18 21:42 Dose: 212 mls/hr Dextrose/Sodium Chloride (Dextrose 5%-1/2 Ns) 1,000 mls @ 0 mls/hr IV ASDIRECTED [facility] Last Admin: 10/01/18 15:04 Dose: 25 mls/hr Magnesium Sulfate 2 gm/ Premix 50 mls @ 25 mls/hr IV Q6H [facility] Stop: 10/01/18 05:59 Last Admin: 10/01/18 03:28 Dose: 25 mls/hr Albumin Human (Albumin 25%) 25 gm in 100 mls @ 25 mls/hr IV Q24H [facility] Stop: 09/30/18 19:59 Last Admin: 09/30/18 16:39 Dose: 25 mls/hr Multivitamins/Minerals 10 ml/Chromium/Copper/Manganese/Seleni/Zn 1 ml/ Amino Ac/ Electrol/Dextrose/Calcium 1,011 mls @ 80 mls/hr IV .BY DURATION [facility] Stop: 09/30/18 17:15 Last Admin: 09/29/18 16:05 Dose: 80 mls/hr Amino Ac/Electrol/Dextrose/Calcium (Clinimix E 5/15) 1,000 mls @ 80 mls/hr IV .BY DURATION [facility] Stop: 09/30/18 17:15 Last Admin: 09/30/18 05:54 Dose: 80 mls/hr Fat Emulsion Intravenous (Intralipid 20%) 100 mls @ 9 mls/hr IV ONETIME ONE Stop: 09/29/18 05:06 Last Admin: 09/28/18 17:39 Dose: 9 mls/hr Potassium Phosphate 15 mmole/ (Sodium Chloride) 105 mls @ 50 mls/hr IV Q2H [facility] Stop: 09/30/18 15:59 Last Admin: 09/30/18 14:32 Dose: 50 mls/hr Multivitamins/Minerals 10 ml/Chromium/Copper/Manganese/Seleni/Zn 1 ml/ Amino Ac/ Electrol/Dextrose/Calcium 1,011 mls @ 60 mls/hr IV .BY DURATION [facility] Stop: 10/02/18 20:00 Last Infusion: 10/02/18 09:00 Dose: 40 mls/hr Amino Ac/Electrol/Dextrose/Calcium (Clinimix E 5/15) 1,000 mls @ 60 mls/hr IV .BY DURATION [facility] Stop: 10/02/18 20:00 Last Admin: 10/01/18 13:24 Dose: 60 mls/hr Albumin Human (Albumin 25%) 25 gm in 100 mls @ 25 mls/hr IV Q24H [facility] Stop: 10/03/18 15:59 Last Admin: 10/01/18 12:18 Dose: 25 mls/hr Albumin Human (Albumin 25%) 25 gm in 100 mls @ 25 mls/hr IV Q24H [facility] Stop: 10/03/18 19:59 Last Admin: 10/01/18 16:38 Dose: 25 mls/hr Fat Emulsion Intravenous (Intralipid 20%) 250 mls @ 21 mls/hr IV ONETIME ONE Stop: 10/02/18 05:54 Last Admin: 10/01/18 17:31 Dose: 21 mls/hr Fat Emulsion Intravenous (Intralipid 20%) 250 mls @ 21 mls/hr IV Q24H [facility] Potassium Chloride 20 meq/Lidocaine HCl 2 ml/ Sodium Chloride 112 mls @ 50 mls/ hr IV Q2H [facility] Stop: 10/02/18 07:29 Last Admin: 10/02/18 06:32 Dose: Not Given Potassium Chloride 40 meq/ (Premix) 100 mls @ 25 mls/hr IV ONETIME ONE Stop: 10/02/18 07:30 Last Admin: 10/02/18 03:50 Dose: 25 mls/hr Potassium Chloride (Kcl 40 Meq In Water 100 Ml) Confirm Administered Dose 100 mls @ as directed .ROUTE .STK-MED ONE Stop: 10/02/18 03:50 Last Admin: 10/02/18 04:03 Dose: Not Given Potassium Phosphate 22.5 mmole (/ Sodium Chloride) 107.5 mls @ 26 mls/hr IV Q4H [facility] Stop: 10/02/18 18:29 Last Admin: 10/02/18 14:34 Dose: 26 mls/hr Multivitamins/Minerals 10 ml/Chromium/Copper/Manganese/Seleni/Zn 1 ml/ Amino Ac/ Electrol/Dextrose/Calcium 1,011 mls @ 40 mls/hr IV .BY DURATION [facility] Stop: 10/03/18 23:30 Last Admin: 10/03/18 05:34 Dose: 40 mls/hr Amino Ac/Electrol/Dextrose/Calcium (Clinimix E 15) 1,000 mls @ 40 mls/hr IV .BY DURATION [facility] Stop: 10/03/18 23:30 Potassium Chloride 40 meq/ (Premix) 100 mls @ 25 mls/hr IV ONETIME ONE Stop: 10/03/18 12:59 Last Admin: 10/03/18 08:20 Dose: 25 mls/hr Linezolid 600 mg/ Premix 300 mls @ 300 mls/hr IV Q12H [facility] Last Admin: 10/07/18 08:06 Dose: 300 mls/hr Multivitamins/Minerals 10 ml/Chromium/Copper/Manganese/Seleni/Zn 1 ml/ Amino Ac/ Electrol/Dextrose/Calcium 1,011 mls @ 40 mls/hr IV .BY DURATION [facility] Last Admin: 10/04/18 04:56 Dose: 40 mls/hr Amino Ac/Electrol/Dextrose/Calcium (Clinimix E 5/15) 1,000 mls @ 40 mls/hr IV .BY DURATION [facility] Piperacillin/Tazobactam/ (Dextrose 3.375 gm/ Premix) 50 mls @ 100 mls/hr IV Q6H [facility] Last Admin: 10/07/18 04:13 Dose: 100 mls/hr Levofloxacin/Dextrose 750 mg/ (Premix) 150 mls @ 100 mls/hr IV Q24H [facility] Last Admin: 10/08/18 16:08 Dose: 100 mls/hr Potassium Phosphate 22.5 mmole (/ Sodium Chloride) 107.5 mls @ 27 mls/hr IV Q4H [facility] Stop: 10/04/18 17:59 Last Admin: 10/04/18 13:34 Dose: 27 mls/hr Multivitamins/Minerals 10 ml/Chromium/Copper/Manganese/Seleni/Zn 1 ml/ Amino Ac/ Electrol/Dextrose/Calcium 1,011 mls @ 40 mls/hr IV .BY DURATION [facility] Stop: 10/05/18 21:59 Last Admin: 10/05/18 04:44 Dose: 40 mls/hr Amino Ac/Electrol/Dextrose/Calcium (Clinimix E 5/15) 1,000 mls @ 40 mls/hr IV .BY DURATION [facility] Stop: 10/05/18 21:59 Potassium Chloride 20 meq/ (Premix) 100 mls @ 50 mls/hr IV ONETIME ONE Stop: 10/05/18 09:59 Last Admin: 10/05/18 08:01 Dose: 50 mls/hr Potassium Chloride 40 meq/ (Premix) 100 mls @ 25 mls/hr IV ONETIME ONE Stop: 10/05/18 13:59 Last Admin: 10/05/18 10:16 Dose: 25 mls/hr Magnesium Sulfate 2 gm/ Premix 50 mls @ 25 mls/hr IV Q6H [facility] Stop: 10/07/18 05:59 Last Admin: 10/07/18 04:14 Dose: 25 mls/hr Multivitamins/Minerals 10 ml/Chromium/Copper/Manganese/Seleni/Zn 1 ml/ Amino Ac/ Electrol/Dextrose/Calcium 1,011 mls @ 60 mls/hr IV .BY DURATION [facility] Stop: 10/06/18 13:55 Amino Ac/Electrol/Dextrose/Calcium (Clinimix E 5/15) 1,000 mls @ 60 mls/hr IV .BY DURATION [facility] Stop: 10/06/18 13:55 Last Admin: 10/06/18 00:34 Dose: 60 mls/hr Potassium Chloride 40 meq/ (Premix) 100 mls @ 25 mls/hr IV ONETIME ONE Stop: 10/05/18 23:59 Last Admin: 10/05/18 20:05 Dose: 25 mls/hr Potassium Phosphate 20 mmole/ (Sodium Chloride) 106.6667 mls @ 35 mls/hr IV Q3H [facility] Stop: 10/06/18 16:59 Last Admin: 10/06/18 15:19 Dose: 35 mls/hr Multivitamins/Minerals 10 ml/Chromium/Copper/Manganese/Seleni/Zn 1 ml/ Amino Ac/ Electrol/Dextrose/Calcium 1,011 mls @ 60 mls/hr IV .BY DURATION [facility] Stop: 10/10/18 19:00 Last Admin: 10/09/18 15:06 Dose: 60 mls/hr Amino Ac/Electrol/Dextrose/Calcium (Clinimix E 5/15) 1,000 mls @ 60 mls/hr IV .BY DURATION [facility] Stop: 10/10/18 19:00 Last Admin: 10/10/18 08:18 Dose: 60 mls/hr Potassium Phosphate 20 mmole/ (Sodium Chloride) 106.6667 mls @ 36 mls/hr IV Q3H [facility] Stop: 10/07/18 17:58 Last Admin: 10/07/18 14:29 Dose: 36 mls/hr Linezolid 600 mg/ Premix 300 mls @ 300 mls/hr IV Q12H [facility] Last Admin: 10/08/18 22:32 Dose: 300 mls/hr Meropenem 1 gm/ Sodium (Chloride) 100 mls @ 200 mls/hr IV Q8H [facility] Last Admin: 10/09/18 02:33 Dose: 200 mls/hr Sodium Chloride (Normal Saline) 80 mls @ 3.5 mls/sec IV ONETIME ONE Stop: 10/08/18 09:51 Last Admin: 10/08/18 10:43 Dose: 4 mls/sec Meropenem 1 gm/ Sodium (Chloride) 50 mls @ 100 mls/hr IV Q8H [facility] Potassium Chloride 40 meq/ (Premix) 100 mls @ 25 mls/hr IV ONETIME ONE Stop: 10/09/18 13:29 Last Admin: 10/09/18 10:08 Dose: 25 mls/hr Potassium Phosphate 22.5 mmole (/ Sodium Chloride) 107.5 mls @ 26 mls/hr IV Q4H [facility] Stop: 10/10/18 17:29 Last Admin: 10/10/18 14:30 Dose: 26 mls/hr Multivitamins/Minerals 10 ml/Chromium/Copper/Manganese/Seleni/Zn 1 ml/ Amino Ac/ Electrol/Dextrose/Calcium 1,011 mls @ 60 mls/hr IV .BY DURATION [facility] Last Admin: 10/11/18 02:07 Dose: 60 mls/hr Amino Ac/Electrol/Dextrose/Calcium (Clinimix E 5/15) 1,000 mls @ 60 mls/hr IV .BY DURATION [facility] Multivitamins/Minerals 10 ml/Chromium/Copper/Manganese/Seleni/Zn 1 ml/ Amino Acids/Dextrose 2,011 mls @ 82 mls/hr IV .BY DURATION [facility] Last Admin: 10/11/18 08:19 Dose: 82 mls/hr Amino Acids/Dextrose (Clinimix 5/15) 2,000 mls @ 100 mls/hr IV .BY DURATION [facility] Fat Emulsion Intravenous (Intralipid 20%) 100 mls @ 8.3 mls/hr IV ONETIME ONE Stop: 10/12/18 04:02 Last Admin: 10/11/18 15:15 Dose: 8.3 mls/hr Iopamidol (Isovue-370 (76%)) 52 ml IV . DIRECTED [facility] Stop: 10/08/18 11:00 Last Admin: 10/08/18 10:44 Dose: 52 ml Lidocaine HCl (Xylocaine 2% Jelly) 10 ml MUCMEM ONETIME ONE Stop: 10/01/18 21:56 Last Admin: 10/01/18 22:04 Dose: 10 ml Lidocaine HCl (Xylocaine 2% Jelly) 10 ml MUCMEM ONETIME ONE Stop: 10/07/18 11:31 Last Admin: 10/07/18 13:49 Dose: 10 ml Lidocaine/Epinephrine (Xylocaine 1% With Epinephrine 1:100,000) Confirm Administered Dose 50 ml .ROUTE .STK-MED ONE Stop: 09/27/18 07:26 Last Admin: 09/27/18 09:40 Dose: 7 ml Loperamide HCl (Imodium) 2 mg PO QID [facility] Last Admin: 10/02/18 05:13 Dose: 2 mg Lorazepam (Ativan) 0.5 mg IVPUSH Q4H PRN PRN Reason: Anxiety Last Admin: 10/07/18 04:13 Dose: 0.5 mg Melatonin (Melatonin) 9 mg PO BEDTIME [facility] Last Admin: 10/09/18 21:33 Dose: Not Given Midazolam HCl (Versed 1 Mg/Ml) Confirm Administered Dose 2 mg .ROUTE .STK-MED ONE Stop: 09/27/18 07:08 Non-Formulary Medication (Total Parenteral Nutrition, Central) 1,000 ml .XX .Continue Order [facility] Stop: 09/29/18 12:00 Non-Formulary Medication (Total Parenteral Nutrition, Central) 1,000 ml .XX .Continue Order [facility] Stop: 09/30/18 09:00 Pantoprazole Sodium (Protonix Iv) 40 mg IV Q24H [facility] Last Admin: 09/29/18 14:31 Dose: 40 mg Polyethylene Glycol (Miralax) 238 gm PO ONETIME ONE Stop: 09/26/18 17:01 Last Admin: 09/26/18 16:54 Dose: 238 gram Potassium Chloride (Klor-Con M20) 40 meq PO ONETIME ONE Stop: 10/06/18 10:01 Last Admin: 10/06/18 09:55 Dose: 40 meq Potassium Chloride (Klor-Con M20) 40 meq PO ONETIME ONE Stop: 10/06/18 17:46 Last Admin: 10/06/18 21:46 Dose: Not Given Potassium Chloride (Klor-Con M20) 40 meq PO ONETIME ONE Stop: 10/06/18 21:01 Last Admin: 10/06/18 21:46 Dose: 40 meq Potassium Chloride (Klor-Con M20) 40 meq PO ONETIME ONE Stop: 10/07/18 08:46 Last Admin: 10/07/18 09:00 Dose: 40 meq Potassium Chloride (Klor-Con M20) 40 meq PO ONETIME ONE Stop: 10/07/18 12:01 Last Admin: 10/07/18 11:48 Dose: 40 meq Potassium Chloride (Klor-Con M20) 40 meq PO ONETIME ONE Stop: 10/09/18 09:01 Last Admin: 10/09/18 09:07 Dose: 40 meq Potassium Chloride (Klor-Con M20) 40 meq PO ONETIME ONE Stop: 10/09/18 12:01 Last Admin: 10/09/18 12:54 Dose: 40 meq Potassium Chloride (Klor-Con M20) 40 meq PO ONETIME ONE Stop: 10/09/18 17:01 Last Admin: 10/09/18 19:34 Dose: Not Given Propofol (Diprivan 20 Ml) Confirm Administered Dose 200 mg .ROUTE .STK-MED ONE Stop: 09/27/18 07:07 Propofol (Diprivan 20 Ml) Confirm Administered Dose 200 mg .ROUTE .STK-MED ONE Stop: 09/27/18 09:05 Sodium Chloride (Saline Flush) 10 ml FLUSH ONETIME ONE Stop: 10/08/18 09:51 Last Admin: 10/08/18 10:44 Dose: 10 ml Tramadol HCl (Ultram) 50 mg PO Q4H PRN PRN Reason: Pain Last Admin: 09/27/18 15:17 Dose: 50 mg - Exam Quality Assessment: No: Supplemental Oxygen General: Alert, Oriented, Cooperative, No Acute Distress HEENT: Pupils Equal Lungs: Normal Respiratory Effort, Crackles (few right lower lung ) Cardiovascular: Regular Rate, Regular Rhythm GI/Abdominal Exam: Soft, No Distention Extremities: No Pedal Edema. No: Increased Warmth Skin: Warm, Dry Psy/Mental Status: Alert, Normal Affect - Problem List & Annotations (1) Acquired hypothyroidism SNOMED Code(s): 527047627 Code(s): E03.9 - HYPOTHYROIDISM, UNSPECIFIED Status: Acute Current Visit : Yes (2) Seizure as late effect of cerebrovascular accident (CVA) SNOMED Code(s): 615178020648602 Code(s): I69.398 - OTHER SEQUELAE OF CEREBRAL INFARCTION; R56.9 - UNSPECIFIED CONVULSIONS Status: Suspected Current Visit: Yes (3) Cerebrovascular accident (CVA) involving left cerebral hemisphere SNOMED Code(s): 247178997 Code(s): I63.9 - CEREBRAL INFARCTION, UNSPECIFIED Status: Acute Current Visit: Yes - Problem List Review Problem List Initiated/Reviewed/Updated: Yes - My Orders Last 24 Hours: My Active Orders 10/11/18 09:00 Clopidogrel [Plavix] 75 mg PO DAILY 10/11/18 10:26 OT Evaluation and Treatment [CONS] Routine 10/11/18 11:41 EKG Documentation Completion [RC] ASDIRECTED EKG 12 Lead [EK] Urgent 10/11/18 12:00 levETIRAcetam [Keppra] 500 mg Sodium Chloride 0.9% [Normal Saline] 100 ml IV Q12H 10/11/18 14:00 Resuscitation Status Routine 10/12/18 03:24 Haloperidol Lactate [Haldol] 1 mg IVPUSH Q2H PRN 10/12/18 10:00 Ang Head wo Cont [MR] Routine Brain wo Cont [MR] Routine 10/12/18 21:00 levETIRAcetam [Keppra] 500 mg PO BID - Plan Plan:: ASSESSMENT AND PLAN - ARDS/Acute respiratory failure with hypoxia - slow but steady improvement in respiratory status though he did decline yesterday afternoon at the time of the presumed seizure. He is off supplemental oxygen again this morning. -Discontinue diuresis, reassessed daily -Supplement oxygen as needed -minimize fluid intake beyond TPN Acute left parietal stroke - exact timing of the stroke is not clear but likely in the last few days. This could explain his apparent visual difficulties as well as his inattentiveness and apathy. I suspect this is thrombotic. We will attempt MRI and MRA again today. -MRI and MRA -Continue aspirin, and clopidogrel -Continue statin -Occupational therapy Probable seizure - episode of rigidity and unresponsiveness 10/11. Tolerated initiation of Keppra and seems to be doing well today. -Continue Keppra, transition to oral Urinary retention - unable to tolerate removal of Gibbons catheter because of urinary retention. -We attempt to remove Gibbons catheter after he has been stable for 24 hours or more hopefully tomorrow -Flomax 0.4 mg by mouth daily Hypoactive Delirium with mild agitation - no evidence for infection. I suspect this is related to his CVA and he was doing better again today. -Melatonin 9 mg by mouth daily at bedtime Pancytopenia - white blood cell count and platelet counts remained low but stable, hemoglobin did improve following transfusion of one unit of red blood cells. Peripheral smear obtained on 26 September shows evidence of pancytopenia but no specific cause. May be nutritional in nature or underlying bone marrow pathology. -Consider bone marrow biopsy for further evaluation, when he becomes more stable Kentrell Merino M.D.
[2018-10-12] MEDS: Fluticasone Propionate Nasal Spray 16 GM Bottle NASBOTH SCH (09:18)
[2018-10-12] MEDS: CHROMIUM IV SCH ×3 (09:35)
[2018-10-12] MEDS: AMINO ACIDS IV SCH ×3 (09:35)
[2018-10-12] MEDS: DEXTROSE 15% IV SCH ×3 (09:35)
[2018-10-12] MEDS: VITAMIN K IV SCH ×3 (09:35)
[2018-10-12] MEDS: [UNRECOGNIZED DRUG - OTHER] IV SCH ×3 (09:35)
[2018-10-12] MEDS: MVI IV SCH ×3 (09:35)
[2018-10-12] MEDS: Loperamide 2 MG Cap PO PRN ×2 (14:07→17:51)
--- NOTE | 2018-10-12 14:39 | CRLMR ---
Indication: Parietal stroke. Technique: MRI Head: Performed without IV contrast MRA Head: Performed without IV contrast. Comparison: CT head 10/10/2018. Findings: MRI Head: There is a 45 mm band of restricted cortical diffusion, T2 signal change and mild mass effect is noted in the left posterior temporoparietal region, corresponding to the low-attenuation lesion noted in this area on 10/10/2018. Numerous smaller foci of restricted diffusion are seen in the cortex and white matter of the left cerebral hemisphere. These are all compatible with recent infarcts in the left MCA distribution. A moderately large chronic cortical infarct is present in the left cerebellum. No evidence for acute infarction involving the right cerebral hemisphere or the infratentorial brain. No evidence for recent or remote hemorrhage. No global mass effect. No ventricular obstruction. Baseline mild small vessel ischemic changes. Grossly normal flow voids are maintained in the directly imaged intracranial vascular structures. The craniovertebral junction is unremarkable, with a patent foramen magnum. Extensive fluid or membrane thickening in both petrous temporal bones. There is slight membrane thickening in the ethmoid paranasal sinuses. MRA Head: There is a paucity of patent left MCA branches relative to the right. No other occlusion/filling defect or acquired arterial stenosis identified. The right posterior cerebral artery receives this time of blood supply from the right internal carotid artery across a patent posterior communicating artery, a congenital variation. No aneurysm or vascular malformation seen. Impression: MRI Head: 1. Multiple recent infarcts in the left MCA distribution, including a 45 mm infarct in the left posterior temporal parietal region. 2. Moderate-sized chronic infarct in the left cerebellum. 3. Background minimal small vessel ischemic changes. MRA Head: 1. Reduced visualization of patent branches in the left MCA distribution. 2. 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 Dictated by Carlos Alberto Ruano MD @ Oct 12 2018 2:36PM Signed by Dr. Carlos Alberto Ruano @ Oct 12 2018 2:37PM
--- NOTE | 2018-10-12 14:39 | CRLMR ---
Indication: Parietal stroke. Technique: MRI Head: Performed without IV contrast MRA Head: Performed without IV contrast. Comparison: CT head 10/10/2018. Findings: MRI Head: There is a 45 mm band of restricted cortical diffusion, T2 signal change and mild mass effect is noted in the left posterior temporoparietal region, corresponding to the low-attenuation lesion noted in this area on 10/10/2018. Numerous smaller foci of restricted diffusion are seen in the cortex and white matter of the left cerebral hemisphere. These are all compatible with recent infarcts in the left MCA distribution. A moderately large chronic cortical infarct is present in the left cerebellum. No evidence for acute infarction involving the right cerebral hemisphere or the infratentorial brain. No evidence for recent or remote hemorrhage. No global mass effect. No ventricular obstruction. Baseline mild small vessel ischemic changes. Grossly normal flow voids are maintained in the directly imaged intracranial vascular structures. The craniovertebral junction is unremarkable, with a patent foramen magnum. Extensive fluid or membrane thickening in both petrous temporal bones. There is slight membrane thickening in the ethmoid paranasal sinuses. MRA Head: There is a paucity of patent left MCA branches relative to the right. No other occlusion/filling defect or acquired arterial stenosis identified. The right posterior cerebral artery receives this time of blood supply from the right internal carotid artery across a patent posterior communicating artery, a congenital variation. No aneurysm or vascular malformation seen. Impression: MRI Head: 1. Multiple recent infarcts in the left MCA distribution, including a 45 mm infarct in the left posterior temporal parietal region. 2. Moderate-sized chronic infarct in the left cerebellum. 3. Background minimal small vessel ischemic changes. MRA Head: 1. Reduced visualization of patent branches in the left MCA distribution. 2. 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 Dictated by Carlos Alberto Ruano MD @ Oct 12 2018 2:17PM Signed by Dr. Carlos Alberto Ruano @ Oct 12 2018 2:36PM
[2018-10-12] MEDS: Fat Emulsion 100 ML IV SCH (15:54)
[2018-10-12] MEDS: levETIRAcetam 250 MG Tab PO SCH (21:13)
[2018-10-12] MEDS: atorvaSTATin 20 MG Tab PO SCH (21:14)
[2018-10-13] MEDS: Haloperidol Lactate 5 MG/ML SDV IVPUSH PRN (03:38)
[2018-10-13] MEDS: Albuterol/Ipratropium 3.0-0.5 MG/3 ML Neb Soln NEB SCH ×4 (07:15→21:09)
[2018-10-13] MEDS: Pantoprazole 40 MG Tab.CR PO SCH (08:17)
[2018-10-13] MEDS: Levothyroxine 100 MCG Tab PO SCH (08:17)
[2018-10-13] MEDS: POTASSIUM PHOSPHATES IV SCH ×6 (08:44→14:24)
[2018-10-13] MEDS: DEXTROSE IV SCH ×6 (08:44→14:24)
[2018-10-13] MEDS: WATER IV SCH ×6 (08:44→14:24)
[2018-10-13] MEDS: Clopidogrel 75 MG Tab PO SCH (08:47)
[2018-10-13] MEDS: Loratadine 10 MG Tab.DIS PO SCH (08:49)
[2018-10-13] MEDS: Lactobacillus Rhamnosus GG (Probiotic) Cap PO SCH ×2 (08:49→21:08)
[2018-10-13] MEDS: Fluticasone Propionate Nasal Spray 16 GM Bottle NASBOTH SCH (08:50)
[2018-10-13] MEDS: Tamsulosin 0.4 MG Cap.ER PO SCH (08:50)
[2018-10-13] MEDS: levETIRAcetam 250 MG Tab PO SCH ×2 (08:51→21:08)
[2018-10-13] MEDS: Aspirin 81 MG Tab.EC PO SCH (08:51)
--- NOTE | 2018-10-13 08:59 | PCM.PN ---
- General Info Date of Service: 10/13/18 Subjective Update: There were no acute events overnight. Patient did not have any recurrence of seizure activity and did not have any difficulties with agitation. He was able to walk approximately 100 feet this morning but was short of breath and slightly hypoxic after his return. He does not report any abdominal pain. There has been no melena or hematochezia. Hemoglobin down to 8.9 today and 1 unit of packed red blood cells has been ordered by the surgical team. Appetite seems to be slowly picking up. Functional Status: Reports: Pain Controlled, Tolerating Diet - Review of Systems General: Reports: Weakness Psychiatric: Denies: Agitation - Patient Data Vitals - Most Recent: Last Vital Signs Temp 36.1 C 10/13/18 08:30 Pulse 91 10/13/18 08:30 Resp 15 10/13/18 08:30 BP 116/64 10/13/18 08:30 Pulse Ox 95 10/13/18 08:00 Weight - Most Recent: 45.178 kg I&O - Last 24 Hours: Intake & Output 10/12/18 10/13/18 10/13/18 22:59 06:59 14:59 Intake Total 1137 1120 0 Output Total 125 800 Balance 1012 320 0 Lab Results Last 24 Hours: Laboratory Results - last 24 hr 10/13/18 10/13/18 10/13/18 Range/Units 04:00 04:00 04:00 WBC 3.9 L (4.5-11.0) K/uL RBC 2.99 L (4.30-5.90) M/uL Hgb 8.9 L (12.0-15.0) g/dL Hct 27.7 L (40.0-54.0) % MCV 93 (80-98) fL MCH 30 (27-31) pg MCHC 32 (32-36) % Plt Count 143 L (150-400) K/uL Add Manual Diff Yes Neutrophils % (Manual) 66 (36-66) % Band Neutrophils % 8 (5-11) % Lymphocytes % (Manual) 15 L (24-44) % Monocytes % (Manual) 10 H (2-6) % Eosinophils % (Manual) 1 L (2-4) % Sodium 151 H (140-148) mmol/L Potassium 4.2 (3.6-5.2) mmol/L Chloride 112 H (100-108) mmol/L Carbon Dioxide 27 (21-32) mmol/L Anion Gap 16.2 H (5.0-14.0) mmol/L BUN 37 H (7-18) mg/dL Creatinine 0.7 L (0.8-1.3) mg/dL Est Cr Clr Drug Dosing 74.32 mL/min Estimated GFR (MDRD) > 60 (>60) Glucose 209 H (74-106) mg/dL Calcium 8.6 (8.5-10.1) mg/dL Phosphorus 2.9 (2.5-4.9) mg/dL Magnesium 1.8 (1.8-2.4) mg/dL Total Bilirubin 1.1 H (0.2-1.0) mg/dL AST 86 H (15-37) U/L ALT 88 H (12-78) U/L Alkaline Phosphatase 214 H (46-116) U/L Total Protein 4.9 L (6.4-8.2) g/dL Albumin 2.0 L (3.4-5.0) g/dL Globulin 2.9 (2.3-3.5) g/dL Albumin/Globulin Ratio 0.7 L (1.2-2.2) Blood Type O POSITIVE Gel Antibody Screen Negative Crossmatch See Detail Med Orders - Current: Current Medications Acetaminophen (Tylenol) 650 mg PO Q4H PRN PRN Reason: ANALGESIA/FEVER Last Admin: 10/08/18 22:32 Dose: 650 mg Acetaminophen (Tylenol) 650 mg RECTAL Q4H PRN PRN Reason: ANALGESIA/FEVER Albuterol (Proventil Neb Soln) 2.5 mg NEB Q2H PRN PRN Reason: Shortness of Breath Last Admin: 10/10/18 00:10 Dose: 2.5 mg Albuterol/Ipratropium (Duoneb 3.0-0.5 Mg/3 Ml) 3 ml NEB QIDRT [facility] Last Admin: 10/13/18 07:15 Dose: 3 ml Aspirin (Halfprin) 81 mg PO DAILY [facility] Last Admin: 10/13/18 08:51 Dose: 81 mg Atorvastatin Calcium (Lipitor) 20 mg PO BEDTIME [facility] Last Admin: 10/12/18 21:14 Dose: 20 mg Benzocaine/Menthol (Cepacol Sore Throat) 1 lozenge MUCMEM 6XDAY PRN PRN Reason: Sore Throat Last Admin: 09/27/18 15:32 Dose: 1 john Clopidogrel Bisulfate (Plavix) 75 mg PO DAILY [facility] Last Admin: 10/13/18 08:47 Dose: 75 mg Fluticasone Propionate (Flonase) 0 gm NASBOTH DAILY [facility] Last Admin: 10/13/18 08:50 Dose: Not Given Haloperidol Lactate (Haldol) 1 mg IVPUSH Q2H PRN PRN Reason: Agitation Last Admin: 10/13/18 03:38 Dose: 1 mg Heparin Sodium (Porcine) (Heparin Lock Flush 100 Units/Ml) 250 units 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 Last Admin: 10/13/18 04:03 Dose: 250 units Multivitamins/Minerals 10 ml/Chromium/Copper/Manganese/Seleni/Zn 1 ml/ Amino Acids/Dextrose 2,011 mls @ 82 mls/hr IV .BY DURATION [facility] Last Admin: 10/12/18 09:35 Dose: 82 mls/hr Amino Acids/Dextrose (Clinimix 5/15) 2,000 mls @ 82 mls/hr IV .BY DURATION [facility] Fat Emulsion Intravenous (Intralipid 20%) 100 mls @ 8.3 mls/hr IV Q24H [facility] Last Admin: 10/12/18 15:54 Dose: 8.3 mls/hr Potassium Phosphate 15 mmole/ (Dextrose/Water) 105 mls @ 35 mls/hr IV Q3H [facility] Stop: 10/13/18 16:59 Last Admin: 10/13/18 08:44 Dose: 35 mls/hr Lactobacillus Rhamnosus (Culturelle) 1 cap PO BID [facility] Last Admin: 10/13/18 08:49 Dose: 1 cap Levetiracetam (Keppra) 500 mg PO BID [facility] Last Admin: 10/13/18 08:51 Dose: 500 mg Levothyroxine Sodium (Synthroid) 100 mcg PO ACBREAKFAST [facility] Last Admin: 10/13/18 08:17 Dose: 100 mcg Loperamide HCl (Imodium) 2 mg PO QID PRN PRN Reason: DIARRHEA Last Admin: 10/12/18 17:51 Dose: 2 mg Loratadine (Claritin Reditabs) 10 mg PO DAILY [facility] Last Admin: 10/13/18 08:49 Dose: 10 mg Morphine Sulfate (Morphine) 4 mg IVPUSH Q2H PRN PRN Reason: air hunger/chest tightness Pantoprazole Sodium (Protonix) 40 mg PO ACBREAKFAST [facility] Last Admin: 10/13/18 08:17 Dose: 40 mg Sodium Chloride (Saline Flush) 5 ml IV 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 Last Admin: 10/08/18 05:46 Dose: 5 ml Sodium Chloride ([place] Nasal Hersey) 0 ml ARABELLA Q2H PRN PRN Reason: nasal congestion Tamsulosin HCl (Flomax) 0.4 mg PO DAILY [facility] Last Admin: 10/13/18 08:50 Dose: 0.4 mg Discontinued Medications Acetazolamide (Diamox) 250 mg IVPUSH Q6H [facility] Stop: 10/05/18 22:01 Last Admin: 10/05/18 22:12 Dose: 250 mg Acetazolamide (Diamox) 250 mg IVPUSH Q12H [facility] Stop: 10/06/18 22:01 Last Admin: 10/06/18 21:46 Dose: 250 mg Albuterol/Ipratropium (Duoneb 3.0-0.5 Mg/3 Ml) 3 ml NEB Q6H [facility] Last Admin: 09/29/18 19:53 Dose: 3 ml Albuterol/Ipratropium (Duoneb 3.0-0.5 Mg/3 Ml) 3 ml NEB Q2H PRN PRN Reason: shortness of breath Last Admin: 10/01/18 17:31 Dose: 3 ml Bupivacaine HCl (Marcaine 0.5%) Confirm Administered Dose 50 ml .ROUTE .STK-MED ONE Stop: 09/27/18 07:25 Last Admin: 09/27/18 09:39 Dose: 7 ml Clopidogrel Bisulfate (Plavix) 75 mg PO ONETIME ONE Stop: 10/10/18 15:13 Last Admin: 10/10/18 15:58 Dose: 75 mg Divalproex Sodium (Divalproex Sodium) 250 mg PO BIDMEALS [facility] Last Admin: 10/08/18 09:11 Dose: 250 mg Fentanyl (Sublimaze) Confirm Administered Dose 100 mcg .ROUTE .STK-MED ONE Stop: 09/27/18 07:07 Furosemide (Lasix) 20 mg PO BIDDIURETIC [facility] Last Admin: 09/27/18 15:03 Dose: Not Given Furosemide (Lasix) 20 mg IV ONETIME ONE Stop: 09/27/18 16:01 Last Admin: 09/27/18 15:08 Dose: 20 mg Furosemide (Lasix) 40 mg IVPUSH ONETIME ONE Stop: 09/29/18 22:46 Last Admin: 09/29/18 23:04 Dose: 40 mg Furosemide (Lasix) 40 mg IVPUSH ONETIME ONE Stop: 09/30/18 08:11 Last Admin: 09/30/18 08:03 Dose: 40 mg Furosemide (Lasix) 20 mg PO BIDDIURETIC ELYSE Last Admin: 10/02/18 10:25 Dose: Not Given Furosemide (Lasix) 20 mg IV ONETIME ONE Stop: 10/01/18 10:01 Last Admin: 10/01/18 09:36 Dose: 20 mg Furosemide (Lasix) 20 mg IVPUSH ONETIME ONE Stop: 10/01/18 18:28 Last Admin: 10/01/18 18:34 Dose: 20 mg Furosemide (Lasix) 40 mg IVPUSH ONETIME ONE Stop: 10/01/18 21:45 Last Admin: 10/01/18 22:21 Dose: 40 mg Furosemide (Lasix) 40 mg IVPUSH ONETIME ONE Stop: 10/02/18 05:01 Last Admin: 10/02/18 05:13 Dose: 40 mg Furosemide 20 mg/ Furosemide (40 mg) 60 mg IV Q8H [facility] Last Admin: 10/03/18 09:11 Dose: 60 mg Furosemide (Lasix) 40 mg IV Q8H [facility] Last Admin: 10/05/18 04:02 Dose: 40 mg Furosemide (Lasix) 40 mg IV DAILY [facility] Last Admin: 10/06/18 09:37 Dose: 40 mg Furosemide (Lasix) 20 mg IV DAILY [facility] Furosemide (Lasix) 20 mg IVPUSH NOW ONE Stop: 10/08/18 10:10 Last Admin: 10/08/18 10:40 Dose: 20 mg Furosemide (Lasix) 40 mg IVPUSH Q8H [facility] Last Admin: 10/11/18 03:33 Dose: 40 mg Furosemide (Lasix) 20 mg IVPUSH ONETIME ONE Stop: 10/13/18 11:01 Haloperidol Lactate (Haldol) 1 mg IVPUSH Q2H PRN PRN Reason: Agitation Heparin Sodium (Porcine) (Heparin Lock Flush 100 Units/Ml) Confirm Administered Dose 1,500 units .ROUTE .[facility]-MED ONE Stop: 09/27/18 07:26 Last Admin: 09/27/18 09:39 Dose: 1,500 units Dextrose/Lactated Ringer's (Dextrose 5%-Lactated Ringers) 1,000 mls @ 100 mls/ hr IV ASDIRECTED [facility] Stop: 09/26/18 20:59 Last Admin: 09/26/18 12:03 Dose: 100 mls/hr Albumin Human (Albumin 25%) 25 gm in 100 mls @ 25 mls/hr IV ONETIME ONE Stop: 09/26/18 20:59 Last Admin: 09/26/18 16:54 Dose: 25 mls/hr Multivitamins/Minerals 10 ml/Chromium/Copper/Manganese/Zinc 1 ml/ Thiamine HCl 100 mg/Dextrose/Lactated Ringer's 1,012 mls @ 100 mls/hr IV .Q10H8M [facility] Stop: 09/27/18 13:59 Last Admin: 09/27/18 11:43 Dose: 100 mls/hr Levofloxacin/Dextrose 500 mg/ (Premix) 100 mls @ 100 mls/hr IV ONETIME ONE Stop: 09/27/18 09:29 Last Admin: 09/27/18 20:47 Dose: Not Given Clindamycin Phosphate 900 mg/ (Sodium Chloride) 106 mls @ 212 mls/hr IV ONETIME ONE Stop: 09/27/18 09:59 Last Admin: 09/27/18 20:47 Dose: Not Given Lactated Ringer's (Ringers, Lactated) Confirm Administered Dose 1,000 mls @ as directed .ROUTE .ST-MED ONE Stop: 09/27/18 09:48 Albumin Human (Albumin 25%) 25 gm in 100 mls @ 25 mls/hr IV Q24H [facility] Stop: 09/30/18 15:59 Last Admin: 09/30/18 12:10 Dose: 25 mls/hr Multivitamins/Minerals 10 ml/Chromium/Copper/Manganese/Seleni/Zn 1 ml/ Amino Ac/ Electrol/Dextrose/Calcium 1,011 mls @ 80 mls/hr IV .BY DURATION [facility] Stop: 09/28/18 14:59 Last Admin: 09/27/18 14:31 Dose: 80 mls/hr Amino Ac/Electrol/Dextrose/Calcium (Clinimix E 5/15) 1,000 mls @ 80 mls/hr IV .BY DURATION [facility] Stop: 09/28/18 14:59 Last Admin: 09/28/18 03:13 Dose: 80 mls/hr Fat Emulsion Intravenous (Intralipid 20%) 100 mls @ 8.3 mls/hr IV ONETIME ONE Stop: 09/28/18 04:02 Last Admin: 09/27/18 16:30 Dose: 8.3 mls/hr Sodium Chloride (Normal Saline) 1,000 mls @ 0 mls/hr IV ASDIRECTED [facility] Stop: 09/28/18 11:59 Last Admin: 09/27/18 16:36 Dose: 25 mls/hr Acetaminophen 1,000 mg/ Premix 100 mls @ 400 mls/hr IV NOW ONE Stop: 09/27/18 13:14 Last Admin: 09/27/18 12:56 Dose: 400 mls/hr Levofloxacin/Dextrose 500 mg/ (Premix) 100 mls @ 100 mls/hr IV Q24H [facility] Last Admin: 09/28/18 07:28 Dose: 100 mls/hr Clindamycin Phosphate 900 mg/ (Sodium Chloride) 106 mls @ 212 mls/hr IV Q12H [facility] Last Admin: 09/28/18 21:42 Dose: 212 mls/hr Dextrose/Sodium Chloride (Dextrose 5%-1/2 Ns) 1,000 mls @ 0 mls/hr IV ASDIRECTED [facility] Last Admin: 10/01/18 15:04 Dose: 25 mls/hr Magnesium Sulfate 2 gm/ Premix 50 mls @ 25 mls/hr IV Q6H [facility] Stop: 10/01/18 05:59 Last Admin: 10/01/18 03:28 Dose: 25 mls/hr Albumin Human (Albumin 25%) 25 gm in 100 mls @ 25 mls/hr IV Q24H [facility] Stop: 09/30/18 19:59 Last Admin: 09/30/18 16:39 Dose: 25 mls/hr Multivitamins/Minerals 10 ml/Chromium/Copper/Manganese/Seleni/Zn 1 ml/ Amino Ac/ Electrol/Dextrose/Calcium 1,011 mls @ 80 mls/hr IV .BY DURATION [facility] Stop: 09/30/18 17:15 Last Admin: 09/29/18 16:05 Dose: 80 mls/hr Amino Ac/Electrol/Dextrose/Calcium (Clinimix E 5/15) 1,000 mls @ 80 mls/hr IV .BY DURATION [facility] Stop: 09/30/18 17:15 Last Admin: 09/30/18 05:54 Dose: 80 mls/hr Fat Emulsion Intravenous (Intralipid 20%) 100 mls @ 9 mls/hr IV ONETIME ONE Stop: 09/29/18 05:06 Last Admin: 09/28/18 17:39 Dose: 9 mls/hr Potassium Phosphate 15 mmole/ (Sodium Chloride) 105 mls @ 50 mls/hr IV Q2H [facility] Stop: 09/30/18 15:59 Last Admin: 09/30/18 14:32 Dose: 50 mls/hr Multivitamins/Minerals 10 ml/Chromium/Copper/Manganese/Seleni/Zn 1 ml/ Amino Ac/ Electrol/Dextrose/Calcium 1,011 mls @ 60 mls/hr IV .BY DURATION [facility] Stop: 10/02/18 20:00 Last Infusion: 10/02/18 09:00 Dose: 40 mls/hr Amino Ac/Electrol/Dextrose/Calcium (Clinimix E 5/15) 1,000 mls @ 60 mls/hr IV .BY DURATION [facility] Stop: 10/02/18 20:00 Last Admin: 10/01/18 13:24 Dose: 60 mls/hr Albumin Human (Albumin 25%) 25 gm in 100 mls @ 25 mls/hr IV Q24H [facility] Stop: 10/03/18 15:59 Last Admin: 10/01/18 12:18 Dose: 25 mls/hr Albumin Human (Albumin 25%) 25 gm in 100 mls @ 25 mls/hr IV Q24H [facility] Stop: 10/03/18 19:59 Last Admin: 10/01/18 16:38 Dose: 25 mls/hr Fat Emulsion Intravenous (Intralipid 20%) 250 mls @ 21 mls/hr IV ONETIME ONE Stop: 10/02/18 05:54 Last Admin: 10/01/18 17:31 Dose: 21 mls/hr Fat Emulsion Intravenous (Intralipid 20%) 250 mls @ 21 mls/hr IV Q24H [facility] Potassium Chloride 20 meq/Lidocaine HCl 2 ml/ Sodium Chloride 112 mls @ 50 mls/ hr IV Q2H [facility] Stop: 10/02/18 07:29 Last Admin: 10/02/18 06:32 Dose: Not Given Potassium Chloride 40 meq/ (Premix) 100 mls @ 25 mls/hr IV ONETIME ONE Stop: 10/02/18 07:30 Last Admin: 10/02/18 03:50 Dose: 25 mls/hr Potassium Chloride (Kcl 40 Meq In Water 100 Ml) Confirm Administered Dose 100 mls @ as directed .ROUTE .STK-MED ONE Stop: 10/02/18 03:50 Last Admin: 10/02/18 04:03 Dose: Not Given Potassium Phosphate 22.5 mmole (/ Sodium Chloride) 107.5 mls @ 26 mls/hr IV Q4H [facility] Stop: 10/02/18 18:29 Last Admin: 10/02/18 14:34 Dose: 26 mls/hr Multivitamins/Minerals 10 ml/Chromium/Copper/Manganese/Seleni/Zn 1 ml/ Amino Ac/ Electrol/Dextrose/Calcium 1,011 mls @ 40 mls/hr IV .BY DURATION [facility] Stop: 10/03/18 23:30 Last Admin: 10/03/18 05:34 Dose: 40 mls/hr Amino Ac/Electrol/Dextrose/Calcium (Clinimix E 5/15) 1,000 mls @ 40 mls/hr IV .BY DURATION [facility] Stop: 10/03/18 23:30 Potassium Chloride 40 meq/ (Premix) 100 mls @ 25 mls/hr IV ONETIME ONE Stop: 10/03/18 12:59 Last Admin: 10/03/18 08:20 Dose: 25 mls/hr Linezolid 600 mg/ Premix 300 mls @ 300 mls/hr IV Q12H [facility] Last Admin: 10/07/18 08:06 Dose: 300 mls/hr Multivitamins/Minerals 10 ml/Chromium/Copper/Manganese/Seleni/Zn 1 ml/ Amino Ac/ Electrol/Dextrose/Calcium 1,011 mls @ 40 mls/hr IV .BY DURATION [facility] Last Admin: 10/04/18 04:56 Dose: 40 mls/hr Amino Ac/Electrol/Dextrose/Calcium (Clinimix E 5/15) 1,000 mls @ 40 mls/hr IV .BY DURATION [facility] Piperacillin/Tazobactam/ (Dextrose 3.375 gm/ Premix) 50 mls @ 100 mls/hr IV Q6H [facility] Last Admin: 10/07/18 04:13 Dose: 100 mls/hr Levofloxacin/Dextrose 750 mg/ (Premix) 150 mls @ 100 mls/hr IV Q24H [facility] Last Admin: 10/08/18 16:08 Dose: 100 mls/hr Potassium Phosphate 22.5 mmole (/ Sodium Chloride) 107.5 mls @ 27 mls/hr IV Q4H [facility] Stop: 10/04/18 17:59 Last Admin: 10/04/18 13:34 Dose: 27 mls/hr Multivitamins/Minerals 10 ml/Chromium/Copper/Manganese/Seleni/Zn 1 ml/ Amino Ac/ Electrol/Dextrose/Calcium 1,011 mls @ 40 mls/hr IV .BY DURATION [facility] Stop: 10/05/18 21:59 Last Admin: 10/05/18 04:44 Dose: 40 mls/hr Amino Ac/Electrol/Dextrose/Calcium (Clinimix E 5/15) 1,000 mls @ 40 mls/hr IV .BY DURATION [facility] Stop: 10/05/18 21:59 Potassium Chloride 20 meq/ (Premix) 100 mls @ 50 mls/hr IV ONETIME ONE Stop: 10/05/18 09:59 Last Admin: 10/05/18 08:01 Dose: 50 mls/hr Potassium Chloride 40 meq/ (Premix) 100 mls @ 25 mls/hr IV ONETIME ONE Stop: 10/05/18 13:59 Last Admin: 10/05/18 10:16 Dose: 25 mls/hr Magnesium Sulfate 2 gm/ Premix 50 mls @ 25 mls/hr IV Q6H [facility] Stop: 10/07/18 05:59 Last Admin: 10/07/18 04:14 Dose: 25 mls/hr Multivitamins/Minerals 10 ml/Chromium/Copper/Manganese/Seleni/Zn 1 ml/ Amino Ac/ Electrol/Dextrose/Calcium 1,011 mls @ 60 mls/hr IV .BY DURATION [facility] Stop: 10/06/18 13:55 Amino Ac/Electrol/Dextrose/Calcium (Clinimix E 5/15) 1,000 mls @ 60 mls/hr IV .BY DURATION [facility] Stop: 10/06/18 13:55 Last Admin: 10/06/18 00:34 Dose: 60 mls/hr Potassium Chloride 40 meq/ (Premix) 100 mls @ 25 mls/hr IV ONETIME ONE Stop: 10/05/18 23:59 Last Admin: 10/05/18 20:05 Dose: 25 mls/hr Potassium Phosphate 20 mmole/ (Sodium Chloride) 106.6667 mls @ 35 mls/hr IV Q3H [facility] Stop: 10/06/18 16:59 Last Admin: 10/06/18 15:19 Dose: 35 mls/hr Multivitamins/Minerals 10 ml/Chromium/Copper/Manganese/Seleni/Zn 1 ml/ Amino Ac/ Electrol/Dextrose/Calcium 1,011 mls @ 60 mls/hr IV .BY DURATION [facility] Stop: 10/10/18 19:00 Last Admin: 10/09/18 15:06 Dose: 60 mls/hr Amino Ac/Electrol/Dextrose/Calcium (Clinimix E 5/15) 1,000 mls @ 60 mls/hr IV .BY DURATION [facility] Stop: 10/10/18 19:00 Last Admin: 10/10/18 08:18 Dose: 60 mls/hr Potassium Phosphate 20 mmole/ (Sodium Chloride) 106.6667 mls @ 36 mls/hr IV Q3H [facility] Stop: 10/07/18 17:58 Last Admin: 10/07/18 14:29 Dose: 36 mls/hr Linezolid 600 mg/ Premix 300 mls @ 300 mls/hr IV Q12H [facility] Last Admin: 10/08/18 22:32 Dose: 300 mls/hr Meropenem 1 gm/ Sodium (Chloride) 100 mls @ 200 mls/hr IV Q8H [facility] Last Admin: 10/09/18 02:33 Dose: 200 mls/hr Sodium Chloride (Normal Saline) 80 mls @ 3.5 mls/sec IV ONETIME ONE Stop: 10/08/18 09:51 Last Admin: 10/08/18 10:43 Dose: 4 mls/sec Meropenem 1 gm/ Sodium (Chloride) 50 mls @ 100 mls/hr IV Q8H [facility] Potassium Chloride 40 meq/ (Premix) 100 mls @ 25 mls/hr IV ONETIME ONE Stop: 10/09/18 13:29 Last Admin: 10/09/18 10:08 Dose: 25 mls/hr Potassium Phosphate 22.5 mmole (/ Sodium Chloride) 107.5 mls @ 26 mls/hr IV Q4H [facility] Stop: 10/10/18 17:29 Last Admin: 10/10/18 14:30 Dose: 26 mls/hr Multivitamins/Minerals 10 ml/Chromium/Copper/Manganese/Seleni/Zn 1 ml/ Amino Ac/ Electrol/Dextrose/Calcium 1,011 mls @ 60 mls/hr IV .BY DURATION [facility] Last Admin: 10/11/18 02:07 Dose: 60 mls/hr Amino Ac/Electrol/Dextrose/Calcium (Clinimix E 5/15) 1,000 mls @ 60 mls/hr IV .BY DURATION [facility] Multivitamins/Minerals 10 ml/Chromium/Copper/Manganese/Seleni/Zn 1 ml/ Amino Acids/Dextrose 2,011 mls @ 82 mls/hr IV .BY DURATION [facility] Last Admin: 10/11/18 08:19 Dose: 82 mls/hr Amino Acids/Dextrose (Clinimix 5/15) 2,000 mls @ 100 mls/hr IV .BY DURATION [facility] Fat Emulsion Intravenous (Intralipid 20%) 100 mls @ 8.3 mls/hr IV ONETIME ONE Stop: 10/12/18 04:02 Last Admin: 10/11/18 15:15 Dose: 8.3 mls/hr Levetiracetam 500 mg/ Sodium (Chloride) 105 mls @ 400 mls/hr IV Q12H [facility] Stop: 10/12/18 14:00 Last Admin: 10/12/18 11:14 Dose: 400 mls/hr Potassium Phosphate 20 mmole/ (Dextrose/Water) 106.6667 mls @ 35 mls/hr IV Q3H [facility] Stop: 10/12/18 17:59 Last Admin: 10/12/18 16:36 Dose: 35 mls/hr Iopamidol (Isovue-370 (76%)) 52 ml IV . DIRECTED [facility] Stop: 10/08/18 11:00 Last Admin: 10/08/18 10:44 Dose: 52 ml Lidocaine HCl (Xylocaine 2% Jelly) 10 ml MUCMEM ONETIME ONE Stop: 10/01/18 21:56 Last Admin: 10/01/18 22:04 Dose: 10 ml Lidocaine HCl (Xylocaine 2% Jelly) 10 ml MUCMEM ONETIME ONE Stop: 10/07/18 11:31 Last Admin: 10/07/18 13:49 Dose: 10 ml Lidocaine/Epinephrine (Xylocaine 1% With Epinephrine 1:100,000) Confirm Administered Dose 50 ml .ROUTE .STK-MED ONE Stop: 09/27/18 07:26 Last Admin: 09/27/18 09:40 Dose: 7 ml Loperamide HCl (Imodium) 2 mg PO QID [facility] Last Admin: 10/02/18 05:13 Dose: 2 mg Lorazepam (Ativan) 0.5 mg IVPUSH Q4H PRN PRN Reason: Anxiety Last Admin: 10/07/18 04:13 Dose: 0.5 mg Melatonin (Melatonin) 9 mg PO BEDTIME [facility] Last Admin: 10/09/18 21:33 Dose: Not Given Midazolam HCl (Versed 1 Mg/Ml) Confirm Administered Dose 2 mg .ROUTE .STK-MED ONE Stop: 09/27/18 07:08 Non-Formulary Medication (Total Parenteral Nutrition, Central) 1,000 ml .XX .Continue Order [facility] Stop: 09/29/18 12:00 Non-Formulary Medication (Total Parenteral Nutrition, Central) 1,000 ml .XX .Continue Order [facility] Stop: 09/30/18 09:00 Pantoprazole Sodium (Protonix Iv) 40 mg IV Q24H [facility] Last Admin: 09/29/18 14:31 Dose: 40 mg Polyethylene Glycol (Miralax) 238 gm PO ONETIME ONE Stop: 09/26/18 17:01 Last Admin: 09/26/18 16:54 Dose: 238 gram Potassium Chloride (Klor-Con M20) 40 meq PO ONETIME ONE Stop: 10/06/18 10:01 Last Admin: 10/06/18 09:55 Dose: 40 meq Potassium Chloride (Klor-Con M20) 40 meq PO ONETIME ONE Stop: 10/06/18 17:46 Last Admin: 10/06/18 21:46 Dose: Not Given Potassium Chloride (Klor-Con M20) 40 meq PO ONETIME ONE Stop: 10/06/18 21:01 Last Admin: 10/06/18 21:46 Dose: 40 meq Potassium Chloride (Klor-Con M20) 40 meq PO ONETIME ONE Stop: 10/07/18 08:46 Last Admin: 10/07/18 09:00 Dose: 40 meq Potassium Chloride (Klor-Con M20) 40 meq PO ONETIME ONE Stop: 10/07/18 12:01 Last Admin: 10/07/18 11:48 Dose: 40 meq Potassium Chloride (Klor-Con M20) 40 meq PO ONETIME ONE Stop: 10/09/18 09:01 Last Admin: 10/09/18 09:07 Dose: 40 meq Potassium Chloride (Klor-Con M20) 40 meq PO ONETIME ONE Stop: 10/09/18 12:01 Last Admin: 10/09/18 12:54 Dose: 40 meq Potassium Chloride (Klor-Con M20) 40 meq PO ONETIME ONE Stop: 10/09/18 17:01 Last Admin: 10/09/18 19:34 Dose: Not Given Propofol (Diprivan 20 Ml) Confirm Administered Dose 200 mg .ROUTE .STK-MED ONE Stop: 09/27/18 07:07 Propofol (Diprivan 20 Ml) Confirm Administered Dose 200 mg .ROUTE .STK-MED ONE Stop: 09/27/18 09:05 Sodium Chloride (Saline Flush) 10 ml FLUSH ONETIME ONE Stop: 10/08/18 09:51 Last Admin: 10/08/18 10:44 Dose: 10 ml Tramadol HCl (Ultram) 50 mg PO Q4H PRN PRN Reason: Pain Last Admin: 09/27/18 15:17 Dose: 50 mg - Exam Quality Assessment: No: Supplemental Oxygen General: Alert, Oriented, Cooperative, No Acute Distress HEENT: Pupils Equal Neck: Supple Lungs: Normal Respiratory Effort, Crackles (moderate both lower lungs) Cardiovascular: Regular Rate, Regular Rhythm GI/Abdominal Exam: Soft, No Distention Extremities: Pedal Edema (trace bilateral ankle edema ). No: Increased Warmth Skin: Warm, Dry Psy/Mental Status: Alert, Normal Affect - Problem List & Annotations (1) Acquired hypothyroidism SNOMED Code(s): 448071124 Code(s): E03.9 - HYPOTHYROIDISM, UNSPECIFIED Status: Acute Current Visit : Yes (2) Seizure as late effect of cerebrovascular accident (CVA) SNOMED Code(s): 587183648142734 Code(s): I69.398 - OTHER SEQUELAE OF CEREBRAL INFARCTION; R56.9 - UNSPECIFIED CONVULSIONS Status: Suspected Current Visit: Yes (3) Cerebrovascular accident (CVA) involving left cerebral hemisphere SNOMED Code(s): 203099756 Code(s): I63.9 - CEREBRAL INFARCTION, UNSPECIFIED Status: Acute Current Visit: Yes - Problem List Review Problem List Initiated/Reviewed/Updated: Yes - My Orders Last 24 Hours: My Active Orders 10/12/18 21:00 levETIRAcetam [Keppra] 500 mg PO BID 10/13/18 11:00 Furosemide [Lasix] 40 mg IVPUSH ONETIME ONE 10/13/18 19:00 Furosemide [Lasix] 40 mg IVPUSH ONETIME ONE - Plan Plan:: ASSESSMENT AND PLAN - ARDS/Acute respiratory failure with hypoxia - he has been off oxygen but his weight is now up about 3 pounds in the past 24 hours and he has increasing crackles on pulmonary examination. I'm concerned that he may be returning to volume overload status and will need aggressive diuresis. He is also receiving a unit of blood which will further expand his volume and could lead to worsening of his respiratory status -Furosemide 2 doses today and reassess in the morning -Supplement oxygen as needed -minimize fluid intake beyond TPN -I would recommend a goal level for transfusion of a hemoglobin less than 8 Acute left parietal stroke - exact timing of the stroke is not clear but likely in the last few days. This could explain his apparent visual difficulties as well as his inattentiveness and apathy. I suspect this is thrombotic based on imaging and discussion with the radiologist. -Continue aspirin, and clopidogrel -Continue statin -Occupational therapy Probable seizure - episode of rigidity and unresponsiveness 10/11. Tolerated initiation of Keppra and has not had a recurrent episode. -Continue Keppra, transitioned to oral Urinary retention - unable to tolerate removal of Gibbons catheter because of urinary retention. -We attempt to remove Gibbons catheter after he has been stable for 24 hours or more hopefully tomorrow -Flomax 0.4 mg by mouth daily Hypoactive Delirium with mild agitation - no evidence for infection. I suspect this is related to his CVA and he has done well for the past 2 days. -Melatonin 9 mg by mouth daily at bedtime Pancytopenia - white blood cell count and platelet counts remained low but stable, hemoglobin did improve following transfusion of one unit of red blood cells. Peripheral smear obtained on 26 September shows evidence of pancytopenia but no specific cause. May be nutritional in nature or underlying bone marrow pathology. -Consider bone marrow biopsy for further evaluation, when he becomes more stable Kentrell Merino M.D.
[2018-10-13] MEDS: [UNRECOGNIZED DRUG - OTHER] IV SCH ×3 (10:16)
[2018-10-13] MEDS: VITAMIN K IV SCH ×3 (10:16)
[2018-10-13] MEDS: CHROMIUM IV SCH ×3 (10:16)
[2018-10-13] MEDS: MVI IV SCH ×3 (10:16)
[2018-10-13] MEDS: DEXTROSE 15% IV SCH ×3 (10:16)
[2018-10-13] MEDS: AMINO ACIDS IV SCH ×3 (10:16)
[2018-10-13] MEDS ORDERED: Furosemide 20 MG/2 ML VIAL IVPUSH ONE ×2 (11:00)
[2018-10-13] MEDS: Fat Emulsion 100 ML IV SCH (16:36)
[2018-10-13] MEDS: Loperamide 2 MG Cap PO PRN (18:09)
[2018-10-13] MEDS ORDERED: Furosemide 40 MG/4 ML VIAL IVPUSH ONE (19:00)
[2018-10-13] MEDS: atorvaSTATin 20 MG Tab PO SCH (21:08)
[2018-10-14] MEDS: Albuterol/Ipratropium 3.0-0.5 MG/3 ML Neb Soln NEB SCH ×4 (07:11→20:20)
[2018-10-14] MEDS: Levothyroxine 100 MCG Tab PO SCH (07:40)
[2018-10-14] MEDS: Pantoprazole 40 MG Tab.CR PO SCH (07:40)
[2018-10-14] MEDS: Loperamide 2 MG Cap PO PRN ×3 (07:44→16:42)
[2018-10-14] MEDS: Loratadine 10 MG Tab.DIS PO SCH (08:17)
[2018-10-14] MEDS: Tamsulosin 0.4 MG Cap.ER PO SCH (08:18)
[2018-10-14] MEDS: Lactobacillus Rhamnosus GG (Probiotic) Cap PO SCH ×2 (08:18→20:19)
[2018-10-14] MEDS: Fluticasone Propionate Nasal Spray 16 GM Bottle NASBOTH SCH (08:18)
[2018-10-14] MEDS: levETIRAcetam 250 MG Tab PO SCH ×2 (08:19→20:19)
[2018-10-14] MEDS: Aspirin 81 MG Tab.EC PO SCH (08:19)
[2018-10-14] MEDS: Clopidogrel 75 MG Tab PO SCH (08:19)
[2018-10-14] MEDS: [UNRECOGNIZED DRUG - OTHER] IV SCH ×3 (09:48)
[2018-10-14] MEDS: AMINO ACIDS IV SCH ×3 (09:48)
[2018-10-14] MEDS: CHROMIUM IV SCH ×3 (09:48)
[2018-10-14] MEDS: DEXTROSE 15% IV SCH ×3 (09:48)
[2018-10-14] MEDS: MVI IV SCH ×3 (09:48)
[2018-10-14] MEDS: VITAMIN K IV SCH ×3 (09:48)
--- NOTE | 2018-10-14 10:13 | PCM.PN ---
- General Info Date of Service: 10/14/18 Subjective Update: Mr. Griffith has been stable since yesterday, starting to eat small amounts, still does have some loose stools. Activity level improving he is been able to walk short distances. Currently off of all supplemental oxygen. Functional Status: Reports: Ambulating, Urinating - Review of Systems General: Reports: Weakness. Denies: Fever, Chills Pulmonary: Reports: No Symptoms Cardiovascular: Reports: No Symptoms Gastrointestinal: Reports: Diarrhea. Denies: Abdominal Pain, Constipation, Difficulty Swallowing, Hematochezia, Melena, Nausea, Vomiting - Patient Data Vitals - Most Recent: Last Vital Signs Temp 98.6 F 10/14/18 07:41 Pulse 114 H 10/14/18 07:41 Resp 28 H 10/14/18 07:41 BP 123/60 10/14/18 07:41 Pulse Ox 91 L 10/14/18 07:41 Weight - Most Recent: 100 lb I&O - Last 24 Hours: Intake & Output 10/13/18 10/14/18 10/14/18 22:59 06:59 14:59 Intake Total 1657 1339 Output Total 401 1550 Balance 1256 -211 Lab Results Last 24 Hours: Laboratory Results - last 24 hr 10/13/18 10/14/18 10/14/18 Range/Units 04:00 04:33 04:33 WBC 4.7 (4.5-11.0) K/uL RBC 3.40 L (4.30-5.90) M/uL Hgb 10.0 L (12.0-15.0) g/dL Hct 30.7 L (40.0-54.0) % MCV 90 (80-98) fL MCH 29 (27-31) pg MCHC 33 (32-36) % Plt Count 154 (150-400) K/uL Add Manual Diff Yes Neutrophils % (Manual) 75 H (36-66) % Band Neutrophils % 2 L (5-11) % Lymphocytes % (Manual) 12 L (24-44) % Monocytes % (Manual) 7 H (2-6) % Eosinophils % (Manual) 4 (2-4) % Poikilocytosis Marked H Anisocytosis Marked H Sodium 142 (140-148) mmol/L Potassium 4.6 (3.6-5.2) mmol/L Chloride 110 H (100-108) mmol/L Carbon Dioxide 28 (21-32) mmol/L Anion Gap 8.6 (5.0-14.0) mmol/L BUN 38 H (7-18) mg/dL Creatinine 0.7 L (0.8-1.3) mg/dL Est Cr Clr Drug Dosing 73.50 mL/min Estimated GFR (MDRD) > 60 (>60) Glucose 246 H (74-106) mg/dL Calcium 8.1 L (8.5-10.1) mg/dL Phosphorus 3.5 (2.5-4.9) mg/dL Magnesium 1.8 (1.8-2.4) mg/dL Total Bilirubin 1.0 (0.2-1.0) mg/dL AST 108 H (15-37) U/L ALT 120 H (12-78) U/L Alkaline Phosphatase 228 H (46-116) U/L Total Protein 5.0 L (6.4-8.2) g/dL Albumin 1.9 L (3.4-5.0) g/dL Globulin 3.1 (2.3-3.5) g/dL Albumin/Globulin Ratio 0.6 L (1.2-2.2) Crossmatch See Detail Med Orders - Current: Current Medications Acetaminophen (Tylenol) 650 mg PO Q4H PRN PRN Reason: ANALGESIA/FEVER Last Admin: 10/08/18 22:32 Dose: 650 mg Acetaminophen (Tylenol) 650 mg RECTAL Q4H PRN PRN Reason: ANALGESIA/FEVER Albuterol (Proventil Neb Soln) 2.5 mg NEB Q2H PRN PRN Reason: Shortness of Breath Last Admin: 10/10/18 00:10 Dose: 2.5 mg Albuterol/Ipratropium (Duoneb 3.0-0.5 Mg/3 Ml) 3 ml NEB QIDRT [facility] Last Admin: 10/14/18 07:11 Dose: 3 ml Aspirin (Halfprin) 81 mg PO DAILY [facility] Last Admin: 10/14/18 08:19 Dose: 81 mg Atorvastatin Calcium (Lipitor) 20 mg PO BEDTIME [facility] Last Admin: 10/13/18 21:08 Dose: 20 mg Benzocaine/Menthol (Cepacol Sore Throat) 1 lozenge MUCMEM 6XDAY PRN PRN Reason: Sore Throat Last Admin: 09/27/18 15:32 Dose: 1 john Clopidogrel Bisulfate (Plavix) 75 mg PO DAILY [facility] Last Admin: 10/14/18 08:19 Dose: 75 mg Fluticasone Propionate (Flonase) 0 gm NASBOTH DAILY [facility] Last Admin: 10/14/18 08:18 Dose: 1 spray Haloperidol Lactate (Haldol) 1 mg IVPUSH Q2H PRN PRN Reason: Agitation Last Admin: 10/13/18 03:38 Dose: 1 mg Heparin Sodium (Porcine) (Heparin Lock Flush 100 Units/Ml) 250 units 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 Last Admin: 10/13/18 04:03 Dose: 250 units Multivitamins/Minerals 10 ml/Chromium/Copper/Manganese/Seleni/Zn 1 ml/ Amino Acids/Dextrose 2,011 mls @ 82 mls/hr IV .BY DURATION [facility] Last Admin: 10/14/18 09:48 Dose: 82 mls/hr Amino Acids/Dextrose (Clinimix 5/15) 2,000 mls @ 82 mls/hr IV .BY DURATION [facility] Fat Emulsion Intravenous (Intralipid 20%) 100 mls @ 8.3 mls/hr IV Q24H [facility] Last Admin: 10/13/18 16:36 Dose: 8.3 mls/hr Lactobacillus Rhamnosus (Culturelle) 1 cap PO BID [facility] Last Admin: 10/14/18 08:18 Dose: 1 cap Levetiracetam (Keppra) 500 mg PO BID [facility] Last Admin: 10/14/18 08:19 Dose: 500 mg Levothyroxine Sodium (Synthroid) 100 mcg PO ACBREAKFAST [facility] Last Admin: 10/14/18 07:40 Dose: 100 mcg Loperamide HCl (Imodium) 2 mg PO QID PRN PRN Reason: DIARRHEA Last Admin: 10/14/18 07:44 Dose: 2 mg Loratadine (Claritin Reditabs) 10 mg PO DAILY [facility] Last Admin: 10/14/18 08:17 Dose: 10 mg Melatonin (Melatonin) 9 mg PO BEDTIME [facility] Morphine Sulfate (Morphine) 4 mg IVPUSH Q2H PRN PRN Reason: air hunger/chest tightness Pantoprazole Sodium (Protonix) 40 mg PO ACBREAKFAST [facility] Last Admin: 10/14/18 07:40 Dose: 40 mg Sodium Chloride (Saline Flush) 5 ml IV 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 Last Admin: 10/08/18 05:46 Dose: 5 ml Sodium Chloride ([place] Nasal [place]) 0 ml ARABELLA Q2H PRN PRN Reason: nasal congestion Tamsulosin HCl (Flomax) 0.4 mg PO DAILY [facility] Last Admin: 10/14/18 08:18 Dose: 0.4 mg Discontinued Medications Acetazolamide (Diamox) 250 mg IVPUSH Q6H [facility] Stop: 10/05/18 22:01 Last Admin: 10/05/18 22:12 Dose: 250 mg Acetazolamide (Diamox) 250 mg IVPUSH Q12H [facility] Stop: 10/06/18 22:01 Last Admin: 10/06/18 21:46 Dose: 250 mg Albuterol/Ipratropium (Duoneb 3.0-0.5 Mg/3 Ml) 3 ml NEB Q6H [facility] Last Admin: 09/29/18 19:53 Dose: 3 ml Albuterol/Ipratropium (Duoneb 3.0-0.5 Mg/3 Ml) 3 ml NEB Q2H PRN PRN Reason: shortness of breath Last Admin: 10/01/18 17:31 Dose: 3 ml Bupivacaine HCl (Marcaine 0.5%) Confirm Administered Dose 50 ml .ROUTE .STK-MED ONE Stop: 09/27/18 07:25 Last Admin: 09/27/18 09:39 Dose: 7 ml Clopidogrel Bisulfate (Plavix) 75 mg PO ONETIME ONE Stop: 10/10/18 15:13 Last Admin: 10/10/18 15:58 Dose: 75 mg Divalproex Sodium (Divalproex Sodium) 250 mg PO BIDMEALS [facility] Last Admin: 10/08/18 09:11 Dose: 250 mg Fentanyl (Sublimaze) Confirm Administered Dose 100 mcg .ROUTE .STK-MED ONE Stop: 09/27/18 07:07 Furosemide (Lasix) 20 mg PO BIDDIURETIC [facility] Last Admin: 09/27/18 15:03 Dose: Not Given Furosemide (Lasix) 20 mg IV ONETIME ONE Stop: 09/27/18 16:01 Last Admin: 09/27/18 15:08 Dose: 20 mg Furosemide (Lasix) 40 mg IVPUSH ONETIME ONE Stop: 09/29/18 22:46 Last Admin: 09/29/18 23:04 Dose: 40 mg Furosemide (Lasix) 40 mg IVPUSH ONETIME ONE Stop: 09/30/18 08:11 Last Admin: 09/30/18 08:03 Dose: 40 mg Furosemide (Lasix) 20 mg PO BIDDIURETIC [facility] Last Admin: 10/02/18 10:25 Dose: Not Given Furosemide (Lasix) 20 mg IV ONETIME ONE Stop: 10/01/18 10:01 Last Admin: 10/01/18 09:36 Dose: 20 mg Furosemide (Lasix) 20 mg IVPUSH ONETIME ONE Stop: 10/01/18 18:28 Last Admin: 10/01/18 18:34 Dose: 20 mg Furosemide (Lasix) 40 mg IVPUSH ONETIME ONE Stop: 10/01/18 21:45 Last Admin: 10/01/18 22:21 Dose: 40 mg Furosemide (Lasix) 40 mg IVPUSH ONETIME ONE Stop: 10/02/18 05:01 Last Admin: 10/02/18 05:13 Dose: 40 mg Furosemide 20 mg/ Furosemide (40 mg) 60 mg IV Q8H [facility] Last Admin: 10/03/18 09:11 Dose: 60 mg Furosemide (Lasix) 40 mg IV Q8H [facility] Last Admin: 10/05/18 04:02 Dose: 40 mg Furosemide (Lasix) 40 mg IV DAILY [facility] Last Admin: 10/06/18 09:37 Dose: 40 mg Furosemide (Lasix) 20 mg IV DAILY [facility] Furosemide (Lasix) 20 mg IVPUSH NOW ONE Stop: 10/08/18 10:10 Last Admin: 10/08/18 10:40 Dose: 20 mg Furosemide (Lasix) 40 mg IVPUSH Q8H [facility] Last Admin: 10/11/18 03:33 Dose: 40 mg Furosemide (Lasix) 20 mg IVPUSH ONETIME ONE Stop: 10/13/18 11:01 Furosemide (Lasix) 40 mg IVPUSH ONETIME ONE Stop: 10/13/18 19:01 Last Admin: 10/13/18 18:27 Dose: 40 mg Furosemide (Lasix) 40 mg IVPUSH ONETIME ONE Stop: 10/13/18 11:01 Last Admin: 10/13/18 10:15 Dose: 40 mg Haloperidol Lactate (Haldol) 1 mg IVPUSH Q2H PRN PRN Reason: Agitation Heparin Sodium (Porcine) (Heparin Lock Flush 100 Units/Ml) Confirm Administered Dose 1,500 units .ROUTE .STK-MED ONE Stop: 09/27/18 07:26 Last Admin: 09/27/18 09:39 Dose: 1,500 units Dextrose/Lactated Ringer's (Dextrose 5%-Lactated Ringers) 1,000 mls @ 100 mls/ hr IV ASDIRECTED [facility] Stop: 09/26/18 20:59 Last Admin: 09/26/18 12:03 Dose: 100 mls/hr Albumin Human (Albumin 25%) 25 gm in 100 mls @ 25 mls/hr IV ONETIME ONE Stop: 09/26/18 20:59 Last Admin: 09/26/18 16:54 Dose: 25 mls/hr Multivitamins/Minerals 10 ml/Chromium/Copper/Manganese/Zinc 1 ml/ Thiamine HCl 100 mg/Dextrose/Lactated Ringer's 1,012 mls @ 100 mls/hr IV .Q10H8M [facility] Stop: 09/27/18 13:59 Last Admin: 09/27/18 11:43 Dose: 100 mls/hr Levofloxacin/Dextrose 500 mg/ (Premix) 100 mls @ 100 mls/hr IV ONETIME ONE Stop: 09/27/18 09:29 Last Admin: 09/27/18 20:47 Dose: Not Given Clindamycin Phosphate 900 mg/ (Sodium Chloride) 106 mls @ 212 mls/hr IV ONETIME ONE Stop: 09/27/18 09:59 Last Admin: 09/27/18 20:47 Dose: Not Given Lactated Ringer's (Ringers, Lactated) Confirm Administered Dose 1,000 mls @ as directed .ROUTE .ST-MED ONE Stop: 09/27/18 09:48 Albumin Human (Albumin 25%) 25 gm in 100 mls @ 25 mls/hr IV Q24H [facility] Stop: 09/30/18 15:59 Last Admin: 09/30/18 12:10 Dose: 25 mls/hr Multivitamins/Minerals 10 ml/Chromium/Copper/Manganese/Seleni/Zn 1 ml/ Amino Ac/ Electrol/Dextrose/Calcium 1,011 mls @ 80 mls/hr IV .BY DURATION [facility] Stop: 09/28/18 14:59 Last Admin: 09/27/18 14:31 Dose: 80 mls/hr Amino Ac/Electrol/Dextrose/Calcium (Clinimix E 5/15) 1,000 mls @ 80 mls/hr IV .BY DURATION [facility] Stop: 09/28/18 14:59 Last Admin: 09/28/18 03:13 Dose: 80 mls/hr Fat Emulsion Intravenous (Intralipid 20%) 100 mls @ 8.3 mls/hr IV ONETIME ONE Stop: 09/28/18 04:02 Last Admin: 09/27/18 16:30 Dose: 8.3 mls/hr Sodium Chloride (Normal Saline) 1,000 mls @ 0 mls/hr IV ASDIRECTED [facility] Stop: 09/28/18 11:59 Last Admin: 09/27/18 16:36 Dose: 25 mls/hr Acetaminophen 1,000 mg/ Premix 100 mls @ 400 mls/hr IV NOW ONE Stop: 09/27/18 13:14 Last Admin: 09/27/18 12:56 Dose: 400 mls/hr Levofloxacin/Dextrose 500 mg/ (Premix) 100 mls @ 100 mls/hr IV Q24H [facility] Last Admin: 09/28/18 07:28 Dose: 100 mls/hr Clindamycin Phosphate 900 mg/ (Sodium Chloride) 106 mls @ 212 mls/hr IV Q12H [facility] Last Admin: 09/28/18 21:42 Dose: 212 mls/hr Dextrose/Sodium Chloride (Dextrose 5%-1/2 Ns) 1,000 mls @ 0 mls/hr IV ASDIRECTED [facility] Last Admin: 10/01/18 15:04 Dose: 25 mls/hr Magnesium Sulfate 2 gm/ Premix 50 mls @ 25 mls/hr IV Q6H [facility] Stop: 10/01/18 05:59 Last Admin: 10/01/18 03:28 Dose: 25 mls/hr Albumin Human (Albumin 25%) 25 gm in 100 mls @ 25 mls/hr IV Q24H [facility] Stop: 09/30/18 19:59 Last Admin: 09/30/18 16:39 Dose: 25 mls/hr Multivitamins/Minerals 10 ml/Chromium/Copper/Manganese/Seleni/Zn 1 ml/ Amino Ac/ Electrol/Dextrose/Calcium 1,011 mls @ 80 mls/hr IV .BY DURATION [facility] Stop: 09/30/18 17:15 Last Admin: 09/29/18 16:05 Dose: 80 mls/hr Amino Ac/Electrol/Dextrose/Calcium (Clinimix E 5/15) 1,000 mls @ 80 mls/hr IV .BY DURATION [facility] Stop: 09/30/18 17:15 Last Admin: 09/30/18 05:54 Dose: 80 mls/hr Fat Emulsion Intravenous (Intralipid 20%) 100 mls @ 9 mls/hr IV ONETIME ONE Stop: 09/29/18 05:06 Last Admin: 09/28/18 17:39 Dose: 9 mls/hr Potassium Phosphate 15 mmole/ (Sodium Chloride) 105 mls @ 50 mls/hr IV Q2H [facility] Stop: 09/30/18 15:59 Last Admin: 09/30/18 14:32 Dose: 50 mls/hr Multivitamins/Minerals 10 ml/Chromium/Copper/Manganese/Seleni/Zn 1 ml/ Amino Ac/ Electrol/Dextrose/Calcium 1,011 mls @ 60 mls/hr IV .BY DURATION [facility] Stop: 10/02/18 20:00 Last Infusion: 10/02/18 09:00 Dose: 40 mls/hr Amino Ac/Electrol/Dextrose/Calcium (Clinimix E 5/15) 1,000 mls @ 60 mls/hr IV .BY DURATION [facility] Stop: 10/02/18 20:00 Last Admin: 10/01/18 13:24 Dose: 60 mls/hr Albumin Human (Albumin 25%) 25 gm in 100 mls @ 25 mls/hr IV Q24H [facility] Stop: 10/03/18 15:59 Last Admin: 10/01/18 12:18 Dose: 25 mls/hr Albumin Human (Albumin 25%) 25 gm in 100 mls @ 25 mls/hr IV Q24H [facility] Stop: 10/03/18 19:59 Last Admin: 10/01/18 16:38 Dose: 25 mls/hr Fat Emulsion Intravenous (Intralipid 20%) 250 mls @ 21 mls/hr IV ONETIME ONE Stop: 10/02/18 05:54 Last Admin: 10/01/18 17:31 Dose: 21 mls/hr Fat Emulsion Intravenous (Intralipid 20%) 250 mls @ 21 mls/hr IV Q24H [facility] Potassium Chloride 20 meq/Lidocaine HCl 2 ml/ Sodium Chloride 112 mls @ 50 mls/ hr IV Q2H [facility] Stop: 10/02/18 07:29 Last Admin: 10/02/18 06:32 Dose: Not Given Potassium Chloride 40 meq/ (Premix) 100 mls @ 25 mls/hr IV ONETIME ONE Stop: 10/02/18 07:30 Last Admin: 10/02/18 03:50 Dose: 25 mls/hr Potassium Chloride (Kcl 40 Meq In Water 100 Ml) Confirm Administered Dose 100 mls @ as directed .ROUTE .STK-MED ONE Stop: 10/02/18 03:50 Last Admin: 10/02/18 04:03 Dose: Not Given Potassium Phosphate 22.5 mmole (/ Sodium Chloride) 107.5 mls @ 26 mls/hr IV Q4H [facility] Stop: 10/02/18 18:29 Last Admin: 10/02/18 14:34 Dose: 26 mls/hr Multivitamins/Minerals 10 ml/Chromium/Copper/Manganese/Seleni/Zn 1 ml/ Amino Ac/ Electrol/Dextrose/Calcium 1,011 mls @ 40 mls/hr IV .BY DURATION [facility] Stop: 10/03/18 23:30 Last Admin: 10/03/18 05:34 Dose: 40 mls/hr Amino Ac/Electrol/Dextrose/Calcium (Clinimix E 5/15) 1,000 mls @ 40 mls/hr IV .BY DURATION [facility] Stop: 10/03/18 23:30 Potassium Chloride 40 meq/ (Premix) 100 mls @ 25 mls/hr IV ONETIME ONE Stop: 10/03/18 12:59 Last Admin: 10/03/18 08:20 Dose: 25 mls/hr Linezolid 600 mg/ Premix 300 mls @ 300 mls/hr IV Q12H [facility] Last Admin: 10/07/18 08:06 Dose: 300 mls/hr Multivitamins/Minerals 10 ml/Chromium/Copper/Manganese/Seleni/Zn 1 ml/ Amino Ac/ Electrol/Dextrose/Calcium 1,011 mls @ 40 mls/hr IV .BY DURATION [facility] Last Admin: 10/04/18 04:56 Dose: 40 mls/hr Amino Ac/Electrol/Dextrose/Calcium (Clinimix E 5/15) 1,000 mls @ 40 mls/hr IV .BY DURATION [facility] Piperacillin/Tazobactam/ (Dextrose 3.375 gm/ Premix) 50 mls @ 100 mls/hr IV Q6H [facility] Last Admin: 10/07/18 04:13 Dose: 100 mls/hr Levofloxacin/Dextrose 750 mg/ (Premix) 150 mls @ 100 mls/hr IV Q24H [facility] Last Admin: 10/08/18 16:08 Dose: 100 mls/hr Potassium Phosphate 22.5 mmole (/ Sodium Chloride) 107.5 mls @ 27 mls/hr IV Q4H [facility] Stop: 10/04/18 17:59 Last Admin: 10/04/18 13:34 Dose: 27 mls/hr Multivitamins/Minerals 10 ml/Chromium/Copper/Manganese/Seleni/Zn 1 ml/ Amino Ac/ Electrol/Dextrose/Calcium 1,011 mls @ 40 mls/hr IV .BY DURATION [facility] Stop: 10/05/18 21:59 Last Admin: 10/05/18 04:44 Dose: 40 mls/hr Amino Ac/Electrol/Dextrose/Calcium (Clinimix E 5/15) 1,000 mls @ 40 mls/hr IV .BY DURATION [facility] Stop: 10/05/18 21:59 Potassium Chloride 20 meq/ (Premix) 100 mls @ 50 mls/hr IV ONETIME ONE Stop: 10/05/18 09:59 Last Admin: 10/05/18 08:01 Dose: 50 mls/hr Potassium Chloride 40 meq/ (Premix) 100 mls @ 25 mls/hr IV ONETIME ONE Stop: 10/05/18 13:59 Last Admin: 10/05/18 10:16 Dose: 25 mls/hr Magnesium Sulfate 2 gm/ Premix 50 mls @ 25 mls/hr IV Q6H [facility] Stop: 10/07/18 05:59 Last Admin: 10/07/18 04:14 Dose: 25 mls/hr Multivitamins/Minerals 10 ml/Chromium/Copper/Manganese/Seleni/Zn 1 ml/ Amino Ac/ Electrol/Dextrose/Calcium 1,011 mls @ 60 mls/hr IV .BY DURATION [facility] Stop: 10/06/18 13:55 Amino Ac/Electrol/Dextrose/Calcium (Clinimix E 5/15) 1,000 mls @ 60 mls/hr IV .BY DURATION [facility] Stop: 10/06/18 13:55 Last Admin: 10/06/18 00:34 Dose: 60 mls/hr Potassium Chloride 40 meq/ (Premix) 100 mls @ 25 mls/hr IV ONETIME ONE Stop: 10/05/18 23:59 Last Admin: 10/05/18 20:05 Dose: 25 mls/hr Potassium Phosphate 20 mmole/ (Sodium Chloride) 106.6667 mls @ 35 mls/hr IV Q3H [facility] Stop: 10/06/18 16:59 Last Admin: 10/06/18 15:19 Dose: 35 mls/hr Multivitamins/Minerals 10 ml/Chromium/Copper/Manganese/Seleni/Zn 1 ml/ Amino Ac/ Electrol/Dextrose/Calcium 1,011 mls @ 60 mls/hr IV .BY DURATION [facility] Stop: 10/10/18 19:00 Last Admin: 10/09/18 15:06 Dose: 60 mls/hr Amino Ac/Electrol/Dextrose/Calcium (Clinimix E 5/15) 1,000 mls @ 60 mls/hr IV .BY DURATION [facility] Stop: 10/10/18 19:00 Last Admin: 10/10/18 08:18 Dose: 60 mls/hr Potassium Phosphate 20 mmole/ (Sodium Chloride) 106.6667 mls @ 36 mls/hr IV Q3H [facility] Stop: 10/07/18 17:58 Last Admin: 10/07/18 14:29 Dose: 36 mls/hr Linezolid 600 mg/ Premix 300 mls @ 300 mls/hr IV Q12H [facility] Last Admin: 10/08/18 22:32 Dose: 300 mls/hr Meropenem 1 gm/ Sodium (Chloride) 100 mls @ 200 mls/hr IV Q8H [facility] Last Admin: 10/09/18 02:33 Dose: 200 mls/hr Sodium Chloride (Normal Saline) 80 mls @ 3.5 mls/sec IV ONETIME ONE Stop: 10/08/18 09:51 Last Admin: 10/08/18 10:43 Dose: 4 mls/sec Meropenem 1 gm/ Sodium (Chloride) 50 mls @ 100 mls/hr IV Q8H [facility] Potassium Chloride 40 meq/ (Premix) 100 mls @ 25 mls/hr IV ONETIME ONE Stop: 10/09/18 13:29 Last Admin: 10/09/18 10:08 Dose: 25 mls/hr Potassium Phosphate 22.5 mmole (/ Sodium Chloride) 107.5 mls @ 26 mls/hr IV Q4H [facility] Stop: 10/10/18 17:29 Last Admin: 10/10/18 14:30 Dose: 26 mls/hr Multivitamins/Minerals 10 ml/Chromium/Copper/Manganese/Seleni/Zn 1 ml/ Amino Ac/ Electrol/Dextrose/Calcium 1,011 mls @ 60 mls/hr IV .BY DURATION [facility] Last Admin: 10/11/18 02:07 Dose: 60 mls/hr Amino Ac/Electrol/Dextrose/Calcium (Clinimix E 5/15) 1,000 mls @ 60 mls/hr IV .BY DURATION [facility] Multivitamins/Minerals 10 ml/Chromium/Copper/Manganese/Seleni/Zn 1 ml/ Amino Acids/Dextrose 2,011 mls @ 82 mls/hr IV .BY DURATION [facility] Last Admin: 10/11/18 08:19 Dose: 82 mls/hr Amino Acids/Dextrose (Clinimix 5/15) 2,000 mls @ 100 mls/hr IV .BY DURATION [facility] Fat Emulsion Intravenous (Intralipid 20%) 100 mls @ 8.3 mls/hr IV ONETIME ONE Stop: 10/12/18 04:02 Last Admin: 10/11/18 15:15 Dose: 8.3 mls/hr Levetiracetam 500 mg/ Sodium (Chloride) 105 mls @ 400 mls/hr IV Q12H [facility] Stop: 10/12/18 14:00 Last Admin: 10/12/18 11:14 Dose: 400 mls/hr Potassium Phosphate 20 mmole/ (Dextrose/Water) 106.6667 mls @ 35 mls/hr IV Q3H [facility] Stop: 10/12/18 17:59 Last Admin: 10/12/18 16:36 Dose: 35 mls/hr Potassium Phosphate 15 mmole/ (Dextrose/Water) 105 mls @ 35 mls/hr IV Q3H [facility] Stop: 10/13/18 16:59 Last Admin: 10/13/18 14:24 Dose: 35 mls/hr Iopamidol (Isovue-370 (76%)) 52 ml IV . DIRECTED [facility] Stop: 10/08/18 11:00 Last Admin: 10/08/18 10:44 Dose: 52 ml Lidocaine HCl (Xylocaine 2% Jelly) 10 ml MUCMEM ONETIME ONE Stop: 10/01/18 21:56 Last Admin: 10/01/18 22:04 Dose: 10 ml Lidocaine HCl (Xylocaine 2% Jelly) 10 ml MUCMEM ONETIME ONE Stop: 10/07/18 11:31 Last Admin: 10/07/18 13:49 Dose: 10 ml Lidocaine/Epinephrine (Xylocaine 1% With Epinephrine 1:100,000) Confirm Administered Dose 50 ml .ROUTE .STK-MED ONE Stop: 09/27/18 07:26 Last Admin: 09/27/18 09:40 Dose: 7 ml Loperamide HCl (Imodium) 2 mg PO QID [facility] Last Admin: 10/02/18 05:13 Dose: 2 mg Lorazepam (Ativan) 0.5 mg IVPUSH Q4H PRN PRN Reason: Anxiety Last Admin: 10/07/18 04:13 Dose: 0.5 mg Melatonin (Melatonin) 9 mg PO BEDTIME [facility] Last Admin: 10/09/18 21:33 Dose: Not Given Midazolam HCl (Versed 1 Mg/Ml) Confirm Administered Dose 2 mg .ROUTE .STK-MED ONE Stop: 09/27/18 07:08 Non-Formulary Medication (Total Parenteral Nutrition, Central) 1,000 ml .XX .Continue Order [facility] Stop: 09/29/18 12:00 Non-Formulary Medication (Total Parenteral Nutrition, Central) 1,000 ml .XX .Continue Order [facility] Stop: 09/30/18 09:00 Pantoprazole Sodium (Protonix Iv) 40 mg IV Q24H [facility] Last Admin: 09/29/18 14:31 Dose: 40 mg Polyethylene Glycol (Miralax) 238 gm PO ONETIME ONE Stop: 09/26/18 17:01 Last Admin: 09/26/18 16:54 Dose: 238 gram Potassium Chloride (Klor-Con M20) 40 meq PO ONETIME ONE Stop: 10/06/18 10:01 Last Admin: 10/06/18 09:55 Dose: 40 meq Potassium Chloride (Klor-Con M20) 40 meq PO ONETIME ONE Stop: 10/06/18 17:46 Last Admin: 10/06/18 21:46 Dose: Not Given Potassium Chloride (Klor-Con M20) 40 meq PO ONETIME ONE Stop: 10/06/18 21:01 Last Admin: 10/06/18 21:46 Dose: 40 meq Potassium Chloride (Klor-Con M20) 40 meq PO ONETIME ONE Stop: 10/07/18 08:46 Last Admin: 10/07/18 09:00 Dose: 40 meq Potassium Chloride (Klor-Con M20) 40 meq PO ONETIME ONE Stop: 10/07/18 12:01 Last Admin: 10/07/18 11:48 Dose: 40 meq Potassium Chloride (Klor-Con M20) 40 meq PO ONETIME ONE Stop: 10/09/18 09:01 Last Admin: 10/09/18 09:07 Dose: 40 meq Potassium Chloride (Klor-Con M20) 40 meq PO ONETIME ONE Stop: 10/09/18 12:01 Last Admin: 10/09/18 12:54 Dose: 40 meq Potassium Chloride (Klor-Con M20) 40 meq PO ONETIME ONE Stop: 10/09/18 17:01 Last Admin: 10/09/18 19:34 Dose: Not Given Propofol (Diprivan 20 Ml) Confirm Administered Dose 200 mg .ROUTE .STK-MED ONE Stop: 09/27/18 07:07 Propofol (Diprivan 20 Ml) Confirm Administered Dose 200 mg .ROUTE .STK-MED ONE Stop: 09/27/18 09:05 Sodium Chloride (Saline Flush) 10 ml FLUSH ONETIME ONE Stop: 10/08/18 09:51 Last Admin: 10/08/18 10:44 Dose: 10 ml Tramadol HCl (Ultram) 50 mg PO Q4H PRN PRN Reason: Pain Last Admin: 09/27/18 15:17 Dose: 50 mg - Exam Quality Assessment: Central Line/PICC, Urine Catheter, DVT Prophylaxis. No: Supplemental Oxygen General: Alert, Oriented, Cooperative, Mild Distress Lungs: Clear to Auscultation, Normal Respiratory Effort Cardiovascular: Regular Rate, Regular Rhythm, No Murmurs GI/Abdominal Exam: Soft, Non-Tender, No Organomegaly, No Distention Extremities: Non-Tender, No Pedal Edema - Problem List Review Problem List Initiated/Reviewed/Updated: Yes - My Orders Last 24 Hours: My Active Orders 10/14/18 21:00 Melatonin 9 mg PO BEDTIME 10/15/18 05:00 CBC WITH AUTO DIFF [HEME] Timed COMPREHENSIVE METABOLIC PN,CMP [CHEM] Timed MAGNESIUM [CHEM] Timed - Plan Plan:: ASSESSMENT AND PLAN - ARDS/Acute respiratory failure with hypoxia - respiratory status stable over the past 24 hours with diuresis -Furosemide 20 mg IV today -Supplement oxygen as needed -minimize fluid intake beyond TPN -I would recommend a goal level for transfusion of a hemoglobin less than 8 Acute left parietal stroke - minimal residual symptoms -Continue aspirin, and clopidogrel -Continue statin -Occupational therapy Probable seizure - episode of rigidity and unresponsiveness 10/11. Tolerated initiation of Keppra and has not had a recurrent episode. -Continue Keppra, transitioned to oral Urinary retention - unable to tolerate removal of Gibbons catheter because of urinary retention. -We attempt to remove Gibbons catheter after he has been stable for a bit longer -Flomax 0.4 mg by mouth daily Hypoactive Delirium with mild agitation - no evidence for infection. I suspect this is related to his CVA and he has done well for the past 2 days. -Melatonin 9 mg by mouth daily at bedtime Pancytopenia - white blood cell count and platelet counts remained low but stable, hemoglobin did improve following transfusion of one unit of red blood cells. Peripheral smear obtained on 26 September shows evidence of pancytopenia but no specific cause. May be nutritional in nature or underlying bone marrow pathology. -Consider bone marrow biopsy for further evaluation, when he becomes more stable
[2018-10-14] MEDS ORDERED: Furosemide 20 MG/2 ML VIAL IVPUSH ONE (10:30)
[2018-10-14] MEDS: Fat Emulsion 100 ML IV SCH (15:17)
[2018-10-14] MEDS: atorvaSTATin 20 MG Tab PO SCH (20:20)
[2018-10-14] MEDS: Melatonin 3 MG Tab PO SCH (20:20)
[2018-10-15] MEDS: Levothyroxine 100 MCG Tab PO SCH (07:13)
[2018-10-15] MEDS: Pantoprazole 40 MG Tab.CR PO SCH (07:13)
[2018-10-15] MEDS: Albuterol/Ipratropium 3.0-0.5 MG/3 ML Neb Soln NEB SCH ×4 (07:36→20:47)
[2018-10-15] MEDS ORDERED: Central Total Parenteral Nutrition Bag SCH (08:00)
[2018-10-15] MEDS: Lactobacillus Rhamnosus GG (Probiotic) Cap PO SCH ×2 (08:03→20:41)
[2018-10-15] MEDS: Clopidogrel 75 MG Tab PO SCH (08:03)
[2018-10-15] MEDS: levETIRAcetam 250 MG Tab PO SCH ×2 (08:03→20:41)
[2018-10-15] MEDS: Loratadine 10 MG Tab.DIS PO SCH (08:04)
[2018-10-15] MEDS: Fluticasone Propionate Nasal Spray 16 GM Bottle NASBOTH SCH (08:04)
[2018-10-15] MEDS: Aspirin 81 MG Tab.EC PO SCH (08:04)
[2018-10-15] MEDS: Tamsulosin 0.4 MG Cap.ER PO SCH (08:04)
[2018-10-15] MEDS: Loperamide 2 MG Cap PO PRN (08:38)
[2018-10-15] MEDS: AMINO ACIDS IV SCH ×3 (09:25)
[2018-10-15] MEDS: DEXTROSE 15% IV SCH ×3 (09:25)
[2018-10-15] MEDS: [UNRECOGNIZED DRUG - OTHER] IV SCH ×3 (09:25)
[2018-10-15] MEDS: MVI IV SCH ×3 (09:25)
[2018-10-15] MEDS: VITAMIN K IV SCH ×3 (09:25)
[2018-10-15] MEDS: CHROMIUM IV SCH ×3 (09:25)
[2018-10-15] MEDS ORDERED: Atropine/Diphenoxylate 0.025-2.5 MG Tab PO PRN (10:50)
--- NOTE | 2018-10-15 10:59 | PCM.PN ---
- General Info Date of Service: 10/15/18 Subjective Update: Mr. Griffith has been stable since yesterday, activity level slowly increasing. Continues to experience orthostatic hypotension with lower blood pressures on sitting or standing. Currently on no blood pressure lowering medications. He otherwise has been fairly stable from a respiratory standpoint and has remained afebrile. - Review of Systems General: Reports: Weakness. Denies: Fever, Chills Pulmonary: Reports: Shortness of Breath. Denies: Pleuritic Chest Pain, Cough, Sputum, Hemoptysis, Wheezing Cardiovascular: Reports: Dyspnea on Exertion. Denies: Chest Pain, Palpitations , Orthopnea, PND, Edema Gastrointestinal: Reports: No Symptoms - Patient Data Vitals - Most Recent: Last Vital Signs Temp 98.5 F 10/15/18 07:53 Pulse 69 10/15/18 10:00 Resp 18 10/15/18 10:00 BP 75/55 L 10/15/18 10:00 Pulse Ox 97 10/15/18 10:00 Weight - Most Recent: 100 lb I&O - Last 24 Hours: Intake & Output 10/14/18 10/15/18 10/15/18 22:59 06:59 14:59 Intake Total 990 1341 360 Output Total 250 450 Balance 740 891 360 Lab Results Last 24 Hours: Laboratory Results - last 24 hr 10/15/18 10/15/18 Range/Units 04:43 04:43 WBC 5.9 (4.5-11.0) K/uL RBC 3.28 L (4.30-5.90) M/uL Hgb 9.7 L (12.0-15.0) g/dL Hct 30.1 L (40.0-54.0) % MCV 92 (80-98) fL MCH 30 (27-31) pg MCHC 32 (32-36) % Plt Count 163 (150-400) K/uL Add Manual Diff Yes Neutrophils % (Manual) 83 H (36-66) % Band Neutrophils % 1 L (5-11) % Lymphocytes % (Manual) 12 L (24-44) % Monocytes % (Manual) 4 (2-6) % Poikilocytosis Marked H Anisocytosis Marked H Sodium 141 (140-148) mmol/L Potassium 4.8 (3.6-5.2) mmol/L Chloride 110 H (100-108) mmol/L Carbon Dioxide 25 (21-32) mmol/L Anion Gap 10.8 (5.0-14.0) mmol/L BUN 44 H (7-18) mg/dL Creatinine 0.7 L (0.8-1.3) mg/dL Est Cr Clr Drug Dosing 73.80 mL/min Estimated GFR (MDRD) > 60 (>60) Glucose 263 H (74-106) mg/dL Calcium 8.3 L (8.5-10.1) mg/dL Magnesium 1.9 (1.8-2.4) mg/dL Total Bilirubin 0.9 (0.2-1.0) mg/dL AST 92 H (15-37) U/L ALT 129 H (12-78) U/L Alkaline Phosphatase 224 H (46-116) U/L Total Protein 5.0 L (6.4-8.2) g/dL Albumin 1.9 L (3.4-5.0) g/dL Globulin 3.1 (2.3-3.5) g/dL Albumin/Globulin Ratio 0.6 L (1.2-2.2) Med Orders - Current: Current Medications Acetaminophen (Tylenol) 650 mg PO Q4H PRN PRN Reason: ANALGESIA/FEVER Last Admin: 10/08/18 22:32 Dose: 650 mg Acetaminophen (Tylenol) 650 mg RECTAL Q4H PRN PRN Reason: ANALGESIA/FEVER Albuterol (Proventil Neb Soln) 2.5 mg NEB Q2H PRN PRN Reason: Shortness of Breath Last Admin: 10/10/18 00:10 Dose: 2.5 mg Albuterol/Ipratropium (Duoneb 3.0-0.5 Mg/3 Ml) 3 ml NEB QIDRT [facility] Last Admin: 10/15/18 07:36 Dose: Not Given Aspirin (Halfprin) 81 mg PO DAILY [facility] Last Admin: 10/15/18 08:04 Dose: 81 mg Atorvastatin Calcium (Lipitor) 20 mg PO BEDTIME [facility] Last Admin: 10/14/18 20:20 Dose: 20 mg Benzocaine/Menthol (Cepacol Sore Throat) 1 lozenge MUCMEM 6XDAY PRN PRN Reason: Sore Throat Last Admin: 09/27/18 15:32 Dose: 1 john Clopidogrel Bisulfate (Plavix) 75 mg PO DAILY [facility] Last Admin: 10/15/18 08:03 Dose: 75 mg Diphenoxylate HCl/Atropine (Lomotil 0.025-2.5 Mg) 1 tab PO QID PRN PRN Reason: Diarrhea Fluticasone Propionate (Flonase) 0 gm NASBOTH DAILY [facility] Last Admin: 10/15/18 08:04 Dose: 1 spray Furosemide (Lasix) 40 mg IVPUSH NOW ONE Stop: 10/15/18 11:01 Haloperidol Lactate (Haldol) 1 mg IVPUSH Q2H PRN PRN Reason: Agitation Last Admin: 10/13/18 03:38 Dose: 1 mg Heparin Sodium (Porcine) (Heparin Lock Flush 100 Units/Ml) 250 units 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 Last Admin: 10/15/18 04:34 Dose: 250 units Multivitamins/Minerals 10 ml/Chromium/Copper/Manganese/Seleni/Zn 1 ml/ Amino Acids/Dextrose 2,011 mls @ 82 mls/hr IV .BY DURATION [facility] Last Admin: 10/15/18 09:25 Dose: 82 mls/hr Amino Acids/Dextrose (Clinimix 5/15) 2,000 mls @ 82 mls/hr IV .BY DURATION [facility] Fat Emulsion Intravenous (Intralipid 20%) 100 mls @ 8.3 mls/hr IV Q24H [facility] Last Admin: 10/14/18 15:17 Dose: 8.3 mls/hr Lactobacillus Rhamnosus (Culturelle) 1 cap PO BID [facility] Last Admin: 10/15/18 08:03 Dose: 1 cap Levetiracetam (Keppra) 500 mg PO BID [facility] Last Admin: 10/15/18 08:03 Dose: 500 mg Levothyroxine Sodium (Synthroid) 100 mcg PO ACBREAKFAST [facility] Last Admin: 10/15/18 07:13 Dose: 100 mcg Loratadine (Claritin Reditabs) 10 mg PO DAILY [facility] Last Admin: 10/15/18 08:04 Dose: 10 mg Melatonin (Melatonin) 9 mg PO BEDTIME [facility] Last Admin: 10/14/18 20:20 Dose: 9 mg Morphine Sulfate (Morphine) 4 mg IVPUSH Q2H PRN PRN Reason: air hunger/chest tightness Pantoprazole Sodium (Protonix) 40 mg PO ACBREAKFAST [facility] Last Admin: 10/15/18 07:13 Dose: 40 mg Sodium Chloride (Saline Flush) 5 ml IV 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 Last Admin: 10/08/18 05:46 Dose: 5 ml Sodium Chloride (Darke Nasal [place]) 0 ml ARABELLA Q2H PRN PRN Reason: nasal congestion Tamsulosin HCl (Flomax) 0.4 mg PO DAILY [facility] Last Admin: 10/15/18 08:04 Dose: 0.4 mg Discontinued Medications Acetazolamide (Diamox) 250 mg IVPUSH Q6H [facility] Stop: 10/05/18 22:01 Last Admin: 10/05/18 22:12 Dose: 250 mg Acetazolamide (Diamox) 250 mg IVPUSH Q12H [facility] Stop: 10/06/18 22:01 Last Admin: 10/06/18 21:46 Dose: 250 mg Albuterol/Ipratropium (Duoneb 3.0-0.5 Mg/3 Ml) 3 ml NEB Q6H [facility] Last Admin: 09/29/18 19:53 Dose: 3 ml Albuterol/Ipratropium (Duoneb 3.0-0.5 Mg/3 Ml) 3 ml NEB Q2H PRN PRN Reason: shortness of breath Last Admin: 10/01/18 17:31 Dose: 3 ml Bupivacaine HCl (Marcaine 0.5%) Confirm Administered Dose 50 ml .ROUTE .STK-MED ONE Stop: 09/27/18 07:25 Last Admin: 09/27/18 09:39 Dose: 7 ml Clopidogrel Bisulfate (Plavix) 75 mg PO ONETIME ONE Stop: 10/10/18 15:13 Last Admin: 10/10/18 15:58 Dose: 75 mg Divalproex Sodium (Divalproex Sodium) 250 mg PO BIDMEALS [facility] Last Admin: 10/08/18 09:11 Dose: 250 mg Fentanyl (Sublimaze) Confirm Administered Dose 100 mcg .ROUTE .STK-MED ONE Stop: 09/27/18 07:07 Furosemide (Lasix) 20 mg PO BIDDIURETIC [facility] Last Admin: 09/27/18 15:03 Dose: Not Given Furosemide (Lasix) 20 mg IV ONETIME ONE Stop: 09/27/18 16:01 Last Admin: 09/27/18 15:08 Dose: 20 mg Furosemide (Lasix) 40 mg IVPUSH ONETIME ONE Stop: 09/29/18 22:46 Last Admin: 09/29/18 23:04 Dose: 40 mg Furosemide (Lasix) 40 mg IVPUSH ONETIME ONE Stop: 09/30/18 08:11 Last Admin: 09/30/18 08:03 Dose: 40 mg Furosemide (Lasix) 20 mg PO BIDDIURETIC [facility] Last Admin: 10/02/18 10:25 Dose: Not Given Furosemide (Lasix) 20 mg IV ONETIME ONE Stop: 10/01/18 10:01 Last Admin: 10/01/18 09:36 Dose: 20 mg Furosemide (Lasix) 20 mg IVPUSH ONETIME ONE Stop: 10/01/18 18:28 Last Admin: 10/01/18 18:34 Dose: 20 mg Furosemide (Lasix) 40 mg IVPUSH ONETIME ONE Stop: 10/01/18 21:45 Last Admin: 10/01/18 22:21 Dose: 40 mg Furosemide (Lasix) 40 mg IVPUSH ONETIME ONE Stop: 10/02/18 05:01 Last Admin: 10/02/18 05:13 Dose: 40 mg Furosemide 20 mg/ Furosemide (40 mg) 60 mg IV Q8H [facility] Last Admin: 10/03/18 09:11 Dose: 60 mg Furosemide (Lasix) 40 mg IV Q8H [facility] Last Admin: 10/05/18 04:02 Dose: 40 mg Furosemide (Lasix) 40 mg IV DAILY [facility] Last Admin: 10/06/18 09:37 Dose: 40 mg Furosemide (Lasix) 20 mg IV DAILY [facility] Furosemide (Lasix) 20 mg IVPUSH NOW ONE Stop: 10/08/18 10:10 Last Admin: 10/08/18 10:40 Dose: 20 mg Furosemide (Lasix) 40 mg IVPUSH Q8H [facility] Last Admin: 10/11/18 03:33 Dose: 40 mg Furosemide (Lasix) 20 mg IVPUSH ONETIME ONE Stop: 10/13/18 11:01 Furosemide (Lasix) 40 mg IVPUSH ONETIME ONE Stop: 10/13/18 19:01 Last Admin: 10/13/18 18:27 Dose: 40 mg Furosemide (Lasix) 40 mg IVPUSH ONETIME ONE Stop: 10/13/18 11:01 Last Admin: 10/13/18 10:15 Dose: 40 mg Furosemide (Lasix) 20 mg IVPUSH NOW ONE Stop: 10/14/18 10:31 Last Admin: 10/14/18 10:20 Dose: 20 mg Haloperidol Lactate (Haldol) 1 mg IVPUSH Q2H PRN PRN Reason: Agitation Heparin Sodium (Porcine) (Heparin Lock Flush 100 Units/Ml) Confirm Administered Dose 1,500 units .ROUTE .STK-MED ONE Stop: 09/27/18 07:26 Last Admin: 09/27/18 09:39 Dose: 1,500 units Dextrose/Lactated Ringer's (Dextrose 5%-Lactated Ringers) 1,000 mls @ 100 mls/ hr IV ASDIRECTED [facility] Stop: 09/26/18 20:59 Last Admin: 09/26/18 12:03 Dose: 100 mls/hr Albumin Human (Albumin 25%) 25 gm in 100 mls @ 25 mls/hr IV ONETIME ONE Stop: 09/26/18 20:59 Last Admin: 09/26/18 16:54 Dose: 25 mls/hr Multivitamins/Minerals 10 ml/Chromium/Copper/Manganese/Zinc 1 ml/ Thiamine HCl 100 mg/Dextrose/Lactated Ringer's 1,012 mls @ 100 mls/hr IV .Q10H8M [facility] Stop: 09/27/18 13:59 Last Admin: 09/27/18 11:43 Dose: 100 mls/hr Levofloxacin/Dextrose 500 mg/ (Premix) 100 mls @ 100 mls/hr IV ONETIME ONE Stop: 09/27/18 09:29 Last Admin: 09/27/18 20:47 Dose: Not Given Clindamycin Phosphate 900 mg/ (Sodium Chloride) 106 mls @ 212 mls/hr IV ONETIME ONE Stop: 09/27/18 09:59 Last Admin: 09/27/18 20:47 Dose: Not Given Lactated Ringer's (Ringers, Lactated) Confirm Administered Dose 1,000 mls @ as directed .ROUTE .STK-MED ONE Stop: 09/27/18 09:48 Albumin Human (Albumin 25%) 25 gm in 100 mls @ 25 mls/hr IV Q24H [facility] Stop: 09/30/18 15:59 Last Admin: 09/30/18 12:10 Dose: 25 mls/hr Multivitamins/Minerals 10 ml/Chromium/Copper/Manganese/Seleni/Zn 1 ml/ Amino Ac/ Electrol/Dextrose/Calcium 1,011 mls @ 80 mls/hr IV .BY DURATION [facility] Stop: 09/28/18 14:59 Last Admin: 09/27/18 14:31 Dose: 80 mls/hr Amino Ac/Electrol/Dextrose/Calcium (Clinimix E 5/15) 1,000 mls @ 80 mls/hr IV .BY DURATION [facility] Stop: 09/28/18 14:59 Last Admin: 09/28/18 03:13 Dose: 80 mls/hr Fat Emulsion Intravenous (Intralipid 20%) 100 mls @ 8.3 mls/hr IV ONETIME ONE Stop: 09/28/18 04:02 Last Admin: 09/27/18 16:30 Dose: 8.3 mls/hr Sodium Chloride (Normal Saline) 1,000 mls @ 0 mls/hr IV ASDIRECTED [facility] Stop: 09/28/18 11:59 Last Admin: 09/27/18 16:36 Dose: 25 mls/hr Acetaminophen 1,000 mg/ Premix 100 mls @ 400 mls/hr IV NOW ONE Stop: 09/27/18 13:14 Last Admin: 09/27/18 12:56 Dose: 400 mls/hr Levofloxacin/Dextrose 500 mg/ (Premix) 100 mls @ 100 mls/hr IV Q24H [facility] Last Admin: 09/28/18 07:28 Dose: 100 mls/hr Clindamycin Phosphate 900 mg/ (Sodium Chloride) 106 mls @ 212 mls/hr IV Q12H [facility] Last Admin: 09/28/18 21:42 Dose: 212 mls/hr Dextrose/Sodium Chloride (Dextrose 5%-1/2 Ns) 1,000 mls @ 0 mls/hr IV ASDIRECTED [facility] Last Admin: 10/01/18 15:04 Dose: 25 mls/hr Magnesium Sulfate 2 gm/ Premix 50 mls @ 25 mls/hr IV Q6H [facility] Stop: 10/01/18 05:59 Last Admin: 10/01/18 03:28 Dose: 25 mls/hr Albumin Human (Albumin 25%) 25 gm in 100 mls @ 25 mls/hr IV Q24H [facility] Stop: 09/30/18 19:59 Last Admin: 09/30/18 16:39 Dose: 25 mls/hr Multivitamins/Minerals 10 ml/Chromium/Copper/Manganese/Seleni/Zn 1 ml/ Amino Ac/ Electrol/Dextrose/Calcium 1,011 mls @ 80 mls/hr IV .BY DURATION [facility] Stop: 09/30/18 17:15 Last Admin: 09/29/18 16:05 Dose: 80 mls/hr Amino Ac/Electrol/Dextrose/Calcium (Clinimix E 5/15) 1,000 mls @ 80 mls/hr IV .BY DURATION [facility] Stop: 09/30/18 17:15 Last Admin: 09/30/18 05:54 Dose: 80 mls/hr Fat Emulsion Intravenous (Intralipid 20%) 100 mls @ 9 mls/hr IV ONETIME ONE Stop: 09/29/18 05:06 Last Admin: 09/28/18 17:39 Dose: 9 mls/hr Potassium Phosphate 15 mmole/ (Sodium Chloride) 105 mls @ 50 mls/hr IV Q2H [facility] Stop: 09/30/18 15:59 Last Admin: 09/30/18 14:32 Dose: 50 mls/hr Multivitamins/Minerals 10 ml/Chromium/Copper/Manganese/Seleni/Zn 1 ml/ Amino Ac/ Electrol/Dextrose/Calcium 1,011 mls @ 60 mls/hr IV .BY DURATION [facility] Stop: 10/02/18 20:00 Last Infusion: 10/02/18 09:00 Dose: 40 mls/hr Amino Ac/Electrol/Dextrose/Calcium (Clinimix E 5/15) 1,000 mls @ 60 mls/hr IV .BY DURATION [facility] Stop: 10/02/18 20:00 Last Admin: 10/01/18 13:24 Dose: 60 mls/hr Albumin Human (Albumin 25%) 25 gm in 100 mls @ 25 mls/hr IV Q24H [facility] Stop: 10/03/18 15:59 Last Admin: 10/01/18 12:18 Dose: 25 mls/hr Albumin Human (Albumin 25%) 25 gm in 100 mls @ 25 mls/hr IV Q24H [facility] Stop: 10/03/18 19:59 Last Admin: 10/01/18 16:38 Dose: 25 mls/hr Fat Emulsion Intravenous (Intralipid 20%) 250 mls @ 21 mls/hr IV ONETIME ONE Stop: 10/02/18 05:54 Last Admin: 10/01/18 17:31 Dose: 21 mls/hr Fat Emulsion Intravenous (Intralipid 20%) 250 mls @ 21 mls/hr IV Q24H [facility] Potassium Chloride 20 meq/Lidocaine HCl 2 ml/ Sodium Chloride 112 mls @ 50 mls/ hr IV Q2H [facility] Stop: 10/02/18 07:29 Last Admin: 10/02/18 06:32 Dose: Not Given Potassium Chloride 40 meq/ (Premix) 100 mls @ 25 mls/hr IV ONETIME ONE Stop: 10/02/18 07:30 Last Admin: 10/02/18 03:50 Dose: 25 mls/hr Potassium Chloride (Kcl 40 Meq In Water 100 Ml) Confirm Administered Dose 100 mls @ as directed .ROUTE .STK-MED ONE Stop: 10/02/18 03:50 Last Admin: 10/02/18 04:03 Dose: Not Given Potassium Phosphate 22.5 mmole (/ Sodium Chloride) 107.5 mls @ 26 mls/hr IV Q4H [facility] Stop: 10/02/18 18:29 Last Admin: 10/02/18 14:34 Dose: 26 mls/hr Multivitamins/Minerals 10 ml/Chromium/Copper/Manganese/Seleni/Zn 1 ml/ Amino Ac/ Electrol/Dextrose/Calcium 1,011 mls @ 40 mls/hr IV .BY DURATION [facility] Stop: 10/03/18 23:30 Last Admin: 10/03/18 05:34 Dose: 40 mls/hr Amino Ac/Electrol/Dextrose/Calcium (Clinimix E 5/15) 1,000 mls @ 40 mls/hr IV .BY DURATION [facility] Stop: 10/03/18 23:30 Potassium Chloride 40 meq/ (Premix) 100 mls @ 25 mls/hr IV ONETIME ONE Stop: 10/03/18 12:59 Last Admin: 10/03/18 08:20 Dose: 25 mls/hr Linezolid 600 mg/ Premix 300 mls @ 300 mls/hr IV Q12H [facility] Last Admin: 10/07/18 08:06 Dose: 300 mls/hr Multivitamins/Minerals 10 ml/Chromium/Copper/Manganese/Seleni/Zn 1 ml/ Amino Ac/ Electrol/Dextrose/Calcium 1,011 mls @ 40 mls/hr IV .BY DURATION [facility] Last Admin: 10/04/18 04:56 Dose: 40 mls/hr Amino Ac/Electrol/Dextrose/Calcium (Clinimix E 5/15) 1,000 mls @ 40 mls/hr IV .BY DURATION [facility] Piperacillin/Tazobactam/ (Dextrose 3.375 gm/ Premix) 50 mls @ 100 mls/hr IV Q6H [facility] Last Admin: 10/07/18 04:13 Dose: 100 mls/hr Levofloxacin/Dextrose 750 mg/ (Premix) 150 mls @ 100 mls/hr IV Q24H [facility] Last Admin: 10/08/18 16:08 Dose: 100 mls/hr Potassium Phosphate 22.5 mmole (/ Sodium Chloride) 107.5 mls @ 27 mls/hr IV Q4H [facility] Stop: 10/04/18 17:59 Last Admin: 10/04/18 13:34 Dose: 27 mls/hr Multivitamins/Minerals 10 ml/Chromium/Copper/Manganese/Seleni/Zn 1 ml/ Amino Ac/ Electrol/Dextrose/Calcium 1,011 mls @ 40 mls/hr IV .BY DURATION [facility] Stop: 10/05/18 21:59 Last Admin: 10/05/18 04:44 Dose: 40 mls/hr Amino Ac/Electrol/Dextrose/Calcium (Clinimix E 5/15) 1,000 mls @ 40 mls/hr IV .BY DURATION [facility] Stop: 10/05/18 21:59 Potassium Chloride 20 meq/ (Premix) 100 mls @ 50 mls/hr IV ONETIME ONE Stop: 10/05/18 09:59 Last Admin: 10/05/18 08:01 Dose: 50 mls/hr Potassium Chloride 40 meq/ (Premix) 100 mls @ 25 mls/hr IV ONETIME ONE Stop: 10/05/18 13:59 Last Admin: 10/05/18 10:16 Dose: 25 mls/hr Magnesium Sulfate 2 gm/ Premix 50 mls @ 25 mls/hr IV Q6H [facility] Stop: 10/07/18 05:59 Last Admin: 10/07/18 04:14 Dose: 25 mls/hr Multivitamins/Minerals 10 ml/Chromium/Copper/Manganese/Seleni/Zn 1 ml/ Amino Ac/ Electrol/Dextrose/Calcium 1,011 mls @ 60 mls/hr IV .BY DURATION [facility] Stop: 10/06/18 13:55 Amino Ac/Electrol/Dextrose/Calcium (Clinimix E 5/15) 1,000 mls @ 60 mls/hr IV .BY DURATION [facility] Stop: 10/06/18 13:55 Last Admin: 10/06/18 00:34 Dose: 60 mls/hr Potassium Chloride 40 meq/ (Premix) 100 mls @ 25 mls/hr IV ONETIME ONE Stop: 10/05/18 23:59 Last Admin: 10/05/18 20:05 Dose: 25 mls/hr Potassium Phosphate 20 mmole/ (Sodium Chloride) 106.6667 mls @ 35 mls/hr IV Q3H [facility] Stop: 10/06/18 16:59 Last Admin: 10/06/18 15:19 Dose: 35 mls/hr Multivitamins/Minerals 10 ml/Chromium/Copper/Manganese/Seleni/Zn 1 ml/ Amino Ac/ Electrol/Dextrose/Calcium 1,011 mls @ 60 mls/hr IV .BY DURATION [facility] Stop: 10/10/18 19:00 Last Admin: 10/09/18 15:06 Dose: 60 mls/hr Amino Ac/Electrol/Dextrose/Calcium (Clinimix E 5/15) 1,000 mls @ 60 mls/hr IV .BY DURATION [facility] Stop: 10/10/18 19:00 Last Admin: 10/10/18 08:18 Dose: 60 mls/hr Potassium Phosphate 20 mmole/ (Sodium Chloride) 106.6667 mls @ 36 mls/hr IV Q3H [facility] Stop: 10/07/18 17:58 Last Admin: 10/07/18 14:29 Dose: 36 mls/hr Linezolid 600 mg/ Premix 300 mls @ 300 mls/hr IV Q12H [facility] Last Admin: 10/08/18 22:32 Dose: 300 mls/hr Meropenem 1 gm/ Sodium (Chloride) 100 mls @ 200 mls/hr IV Q8H [facility] Last Admin: 10/09/18 02:33 Dose: 200 mls/hr Sodium Chloride (Normal Saline) 80 mls @ 3.5 mls/sec IV ONETIME ONE Stop: 10/08/18 09:51 Last Admin: 10/08/18 10:43 Dose: 4 mls/sec Meropenem 1 gm/ Sodium (Chloride) 50 mls @ 100 mls/hr IV Q8H [facility] Potassium Chloride 40 meq/ (Premix) 100 mls @ 25 mls/hr IV ONETIME ONE Stop: 10/09/18 13:29 Last Admin: 10/09/18 10:08 Dose: 25 mls/hr Potassium Phosphate 22.5 mmole (/ Sodium Chloride) 107.5 mls @ 26 mls/hr IV Q4H [facility] Stop: 10/10/18 17:29 Last Admin: 10/10/18 14:30 Dose: 26 mls/hr Multivitamins/Minerals 10 ml/Chromium/Copper/Manganese/Seleni/Zn 1 ml/ Amino Ac/ Electrol/Dextrose/Calcium 1,011 mls @ 60 mls/hr IV .BY DURATION [facility] Last Admin: 10/11/18 02:07 Dose: 60 mls/hr Amino Ac/Electrol/Dextrose/Calcium (Clinimix E 5/15) 1,000 mls @ 60 mls/hr IV .BY DURATION [facility] Multivitamins/Minerals 10 ml/Chromium/Copper/Manganese/Seleni/Zn 1 ml/ Amino Acids/Dextrose 2,011 mls @ 82 mls/hr IV .BY DURATION [facility] Last Admin: 10/11/18 08:19 Dose: 82 mls/hr Amino Acids/Dextrose (Clinimix 5/15) 2,000 mls @ 100 mls/hr IV .BY DURATION [facility] Fat Emulsion Intravenous (Intralipid 20%) 100 mls @ 8.3 mls/hr IV ONETIME ONE Stop: 10/12/18 04:02 Last Admin: 10/11/18 15:15 Dose: 8.3 mls/hr Levetiracetam 500 mg/ Sodium (Chloride) 105 mls @ 400 mls/hr IV Q12H [facility] Stop: 10/12/18 14:00 Last Admin: 10/12/18 11:14 Dose: 400 mls/hr Potassium Phosphate 20 mmole/ (Dextrose/Water) 106.6667 mls @ 35 mls/hr IV Q3H [facility] Stop: 10/12/18 17:59 Last Admin: 10/12/18 16:36 Dose: 35 mls/hr Potassium Phosphate 15 mmole/ (Dextrose/Water) 105 mls @ 35 mls/hr IV Q3H [facility] Stop: 10/13/18 16:59 Last Admin: 10/13/18 14:24 Dose: 35 mls/hr Iopamidol (Isovue-370 (76%)) 52 ml IV . DIRECTED [facility] Stop: 10/08/18 11:00 Last Admin: 10/08/18 10:44 Dose: 52 ml Lidocaine HCl (Xylocaine 2% Jelly) 10 ml MUCMEM ONETIME ONE Stop: 10/01/18 21:56 Last Admin: 10/01/18 22:04 Dose: 10 ml Lidocaine HCl (Xylocaine 2% Jelly) 10 ml MUCMEM ONETIME ONE Stop: 10/07/18 11:31 Last Admin: 10/07/18 13:49 Dose: 10 ml Lidocaine/Epinephrine (Xylocaine 1% With Epinephrine 1:100,000) Confirm Administered Dose 50 ml .ROUTE .STK-MED ONE Stop: 09/27/18 07:26 Last Admin: 09/27/18 09:40 Dose: 7 ml Loperamide HCl (Imodium) 2 mg PO QID [facility] Last Admin: 10/02/18 05:13 Dose: 2 mg Loperamide HCl (Imodium) 2 mg PO QID PRN PRN Reason: DIARRHEA Last Admin: 10/15/18 08:38 Dose: 2 mg Lorazepam (Ativan) 0.5 mg IVPUSH Q4H PRN PRN Reason: Anxiety Last Admin: 10/07/18 04:13 Dose: 0.5 mg Melatonin (Melatonin) 9 mg PO BEDTIME [facility] Last Admin: 10/09/18 21:33 Dose: Not Given Midazolam HCl (Versed 1 Mg/Ml) Confirm Administered Dose 2 mg .ROUTE .STK-MED ONE Stop: 09/27/18 07:08 Non-Formulary Medication (Total Parenteral Nutrition, Central) 1,000 ml .XX .Continue Order [facility] Stop: 09/29/18 12:00 Non-Formulary Medication (Total Parenteral Nutrition, Central) 1,000 ml .XX .Continue Order [facility] Stop: 09/30/18 09:00 Non-Formulary Medication (Total Parenteral Nutrition, Central) 1,000 ml .XX .Continue Order [facility] Stop: 10/15/18 10:00 Pantoprazole Sodium (Protonix Iv) 40 mg IV Q24H [facility] Last Admin: 09/29/18 14:31 Dose: 40 mg Polyethylene Glycol (Miralax) 238 gm PO ONETIME ONE Stop: 09/26/18 17:01 Last Admin: 09/26/18 16:54 Dose: 238 gram Potassium Chloride (Klor-Con M20) 40 meq PO ONETIME ONE Stop: 10/06/18 10:01 Last Admin: 10/06/18 09:55 Dose: 40 meq Potassium Chloride (Klor-Con M20) 40 meq PO ONETIME ONE Stop: 10/06/18 17:46 Last Admin: 10/06/18 21:46 Dose: Not Given Potassium Chloride (Klor-Con M20) 40 meq PO ONETIME ONE Stop: 10/06/18 21:01 Last Admin: 10/06/18 21:46 Dose: 40 meq Potassium Chloride (Klor-Con M20) 40 meq PO ONETIME ONE Stop: 10/07/18 08:46 Last Admin: 10/07/18 09:00 Dose: 40 meq Potassium Chloride (Klor-Con M20) 40 meq PO ONETIME ONE Stop: 10/07/18 12:01 Last Admin: 10/07/18 11:48 Dose: 40 meq Potassium Chloride (Klor-Con M20) 40 meq PO ONETIME ONE Stop: 10/09/18 09:01 Last Admin: 10/09/18 09:07 Dose: 40 meq Potassium Chloride (Klor-Con M20) 40 meq PO ONETIME ONE Stop: 10/09/18 12:01 Last Admin: 10/09/18 12:54 Dose: 40 meq Potassium Chloride (Klor-Con M20) 40 meq PO ONETIME ONE Stop: 10/09/18 17:01 Last Admin: 10/09/18 19:34 Dose: Not Given Propofol (Diprivan 20 Ml) Confirm Administered Dose 200 mg .ROUTE .STK-MED ONE Stop: 09/27/18 07:07 Propofol (Diprivan 20 Ml) Confirm Administered Dose 200 mg .ROUTE .STK-MED ONE Stop: 09/27/18 09:05 Sodium Chloride (Saline Flush) 10 ml FLUSH ONETIME ONE Stop: 10/08/18 09:51 Last Admin: 10/08/18 10:44 Dose: 10 ml Tramadol HCl (Ultram) 50 mg PO Q4H PRN PRN Reason: Pain Last Admin: 09/27/18 15:17 Dose: 50 mg - Exam Quality Assessment: Central Line/PICC, Urine Catheter, DVT Prophylaxis General: Alert, Oriented, Cooperative, Mild Distress Lungs: Clear to Auscultation, Normal Respiratory Effort Cardiovascular: Regular Rate, Regular Rhythm, No Murmurs GI/Abdominal Exam: Soft, Non-Tender, No Organomegaly, No Distention Extremities: Non-Tender, No Pedal Edema - Problem List Review Problem List Initiated/Reviewed/Updated: Yes - My Orders Last 24 Hours: My Active Orders 10/14/18 21:00 Melatonin 9 mg PO BEDTIME 10/15/18 10:48 Patient Status [ADT] Routine Cardiac Monitoring [RC] .As Directed 10/15/18 10:49 Furosemide [Lasix] 40 mg IVPUSH NOW ONE 10/15/18 10:50 Atropine/Diphenoxylate [Lomotil 0.025-2.5 MG] 1 tab PO QID PRN 10/15/18 10:51 Communication Order [RC] ASDIRECTED - Plan Plan:: ASSESSMENT AND PLAN - ARDS/Acute respiratory failure with hypoxia - respiratory status stable over the past 24 hours with diuresis -Furosemide 40 mg IV today -Supplement oxygen as needed -minimize fluid intake beyond TPN -I would recommend a goal level for transfusion of a hemoglobin less than 8 Orthostatic hypotension-significant drop in blood pressure was sitting, more marked with standing. -High sodium diet -Head of bed elevated at 45 at all times -Thigh high support hose -Consider addition of medical therapy Acute left parietal stroke - minimal residual symptoms -Continue aspirin, and clopidogrel -Continue statin -Occupational therapy Probable seizure - episode of rigidity and unresponsiveness 10/11. Tolerated initiation of Keppra and has not had a recurrent episode. -Continue Keppra, transitioned to oral Urinary retention - unable to tolerate removal of Gibbons catheter because of urinary retention. -We attempt to remove Gibbons catheter after he has been stable for a bit longer -Flomax 0.4 mg by mouth daily -Proscar 5 mg by mouth daily Hypoactive Delirium with mild agitation - no evidence for infection. I suspect this is related to his CVA and he has done well for the past 2 days. -Melatonin 9 mg by mouth daily at bedtime Pancytopenia - white blood cell count and platelets are now within normal range , likely nutritional. Persistent anemia likely chronic related to underlying health problems.
[2018-10-15] MEDS ORDERED: Furosemide 40 MG/4 ML VIAL IVPUSH ONE (11:00)
[2018-10-15] MEDS: Finasteride 5 MG Tab PO SCH (11:34)
[2018-10-15] MEDS: Fat Emulsion 100 ML IV SCH (17:09)
[2018-10-15] MEDS: atorvaSTATin 20 MG Tab PO SCH (20:42)
[2018-10-15] MEDS: Melatonin 3 MG Tab PO SCH (20:42)
[2018-10-16] MEDS: Albuterol/Ipratropium 3.0-0.5 MG/3 ML Neb Soln NEB SCH ×4 (07:18→20:56)
[2018-10-16] MEDS ORDERED: Central Total Parenteral Nutrition Bag SCH (08:00)
[2018-10-16] MEDS: Levothyroxine 100 MCG Tab PO SCH (08:23)
[2018-10-16] MEDS: Pantoprazole 40 MG Tab.CR PO SCH (08:23)
[2018-10-16] MEDS: Lactobacillus Rhamnosus GG (Probiotic) Cap PO SCH ×2 (08:24→20:43)
[2018-10-16] MEDS: Loratadine 10 MG Tab.DIS PO SCH (08:24)
[2018-10-16] MEDS: Finasteride 5 MG Tab PO SCH (08:25)
[2018-10-16] MEDS: Aspirin 81 MG Tab.EC PO SCH (08:25)
[2018-10-16] MEDS: Tamsulosin 0.4 MG Cap.ER PO SCH (08:25)
[2018-10-16] MEDS: Clopidogrel 75 MG Tab PO SCH (08:25)
[2018-10-16] MEDS: Fluticasone Propionate Nasal Spray 16 GM Bottle NASBOTH SCH (08:25)
[2018-10-16] MEDS: levETIRAcetam 250 MG Tab PO SCH ×2 (08:25→20:43)
[2018-10-16] MEDS: MVI IV SCH ×3 (09:46)
[2018-10-16] MEDS: DEXTROSE 15% IV SCH ×3 (09:46)
[2018-10-16] MEDS: VITAMIN K IV SCH ×3 (09:46)
[2018-10-16] MEDS: CHROMIUM IV SCH ×3 (09:46)
[2018-10-16] MEDS: [UNRECOGNIZED DRUG - OTHER] IV SCH ×3 (09:46)
[2018-10-16] MEDS: AMINO ACIDS IV SCH ×3 (09:46)
--- NOTE | 2018-10-16 10:18 | PN ---
DATE OF SERVICE: 10/16/2018 HISTORY OF PRESENT ILLNESS: Shun states he remains to be weak, but is feeling better. Oral intake was 720. He is eating 20% to 50% of his meals. Gibbons catheter remains in, he had 2750 out. This will be addressed by hospitalist. He has no other questions or concerns today. OBJECTIVE: GENERAL: Keshav Griffith is a 58-year-old male. He appears weak, but quite talkative. VITAL SIGNS: TPR is 96.6, 62, 16, blood pressure 94/56. HEENT: Negative. NECK: Supple. HEART: Regular rate and rhythm. LUNGS: Revealed decreased breath sounds. ABDOMEN: Negative. EXTREMITIES: Peripheral edema, no change. SKIN: Multiple bruises are noted. ASSESSMENT: Malnutrition, TPN therapy, SP duodenal switch, unspecified surgical malabsorption, B12 deficiency, orthostatic hypotension. PLAN: 1. Continue same TPN rate and content. Check CBC, CMP, mag, phos, and BNP in a.m. 2. Good pulmonary toilet. 3. We will evaluate p.r.n. or in a.m. Kelly Parham PA-C /[id number]
--- NOTE | 2018-10-16 10:28 | PN ---
DATE OF SERVICE: 10/15/2018 SUBJECTIVE: Shun has been afebrile. Oral intake 1200. Yesterday, he ate no breakfast, lunch or dinner. He did eat a bedtime snack. TPN is running at 82 mL per hour and last bowel movement was on 10/14/2018. He states he is weak, but he is excited to move up to [address] and to get out of ICU. REVIEW OF SYSTEMS: Remainder of review of systems is negative for any pertinent positives and negatives. OBJECTIVE: GENERAL: Shun Griffith is a 58-year-old male. He is alert and orientated, remains to be weak. VITAL SIGNS: TPR is 98.5, 74, 17, blood pressure 105/58. HEENT: Negative. NECK: Supple. HEART: Regular rate and rhythm. LUNGS: Clear. ABDOMEN: Negative. EXTREMITIES: Negative. SKIN: Bruised. ASSESSMENT: Malnutrition, TPN therapy. PLAN: Continue same TPN rate and content. Check labs. We will evaluate p.r.n. or in a.m. Kelly Parham PA-C /[id number]
--- NOTE | 2018-10-16 11:08 | PCM.PN ---
- General Info Date of Service: 10/16/18 Subjective Update: Mr. Griffith has been stable since yesterday, no recurrent temperature elevations, blood pressures better with sitting and standing. Denies significant shortness of breath, oxygenation adequate on room air. Functional Status: Reports: Tolerating Diet, Ambulating, Urinating - Review of Systems General: Reports: Weakness. Denies: Fever, Chills Pulmonary: Reports: No Symptoms Cardiovascular: Reports: No Symptoms Gastrointestinal: Reports: Decreased Appetite, Diarrhea. Denies: Abdominal Pain , Difficulty Swallowing, Hematochezia, Melena, Nausea, Vomiting - Patient Data Vitals - Most Recent: Last Vital Signs Temp 96.6 F 10/16/18 07:39 Pulse 62 10/16/18 07:39 Resp 16 10/16/18 07:39 BP 94/56 L 10/16/18 07:39 Pulse Ox 97 10/16/18 07:39 Weight - Most Recent: 100 lb I&O - Last 24 Hours: Intake & Output 10/15/18 10/16/18 10/16/18 22:59 06:59 14:59 Intake Total 288 1175 Output Total 850 650 Balance -562 525 Lab Results Last 24 Hours: Laboratory Results - last 24 hr 10/16/18 10/16/18 Range/Units 04:53 04:53 WBC 5.9 (4.5-11.0) K/uL RBC 3.27 L (4.30-5.90) M/uL Hgb 9.7 L (12.0-15.0) g/dL Hct 29.9 L (40.0-54.0) % MCV 91 (80-98) fL MCH 30 (27-31) pg MCHC 32 (32-36) % Plt Count 177 (150-400) K/uL Sodium 136 L (140-148) mmol/L Potassium 5.0 (3.6-5.2) mmol/L Chloride 105 (100-108) mmol/L Carbon Dioxide 26 (21-32) mmol/L Anion Gap 10.0 (5.0-14.0) mmol/L BUN 43 H (7-18) mg/dL Creatinine 0.7 L (0.8-1.3) mg/dL Est Cr Clr Drug Dosing 73.80 mL/min Estimated GFR (MDRD) > 60 (>60) Glucose 278 H (74-106) mg/dL Calcium 8.4 L (8.5-10.1) mg/dL Phosphorus 3.1 (2.5-4.9) mg/dL Magnesium 1.8 (1.8-2.4) mg/dL Total Bilirubin 0.8 (0.2-1.0) mg/dL AST 149 H (15-37) U/L ALT 160 H (12-78) U/L Alkaline Phosphatase 239 H (46-116) U/L NT-Pro-B Natriuret Pep 71 (5-125) pg/mL Total Protein 4.8 L (6.4-8.2) g/dL Albumin 1.9 L (3.4-5.0) g/dL Globulin 2.9 (2.3-3.5) g/dL Albumin/Globulin Ratio 0.7 L (1.2-2.2) Med Orders - Current: Current Medications Acetaminophen (Tylenol) 650 mg PO Q4H PRN PRN Reason: ANALGESIA/FEVER Last Admin: 10/08/18 22:32 Dose: 650 mg Acetaminophen (Tylenol) 650 mg RECTAL Q4H PRN PRN Reason: ANALGESIA/FEVER Albuterol (Proventil Neb Soln) 2.5 mg NEB Q2H PRN PRN Reason: Shortness of Breath Last Admin: 10/10/18 00:10 Dose: 2.5 mg Albuterol/Ipratropium (Duoneb 3.0-0.5 Mg/3 Ml) 3 ml NEB QIDRT [facility] Last Admin: 10/16/18 07:18 Dose: 3 ml Aspirin (Halfprin) 81 mg PO DAILY [facility] Last Admin: 10/16/18 08:25 Dose: 81 mg Atorvastatin Calcium (Lipitor) 20 mg PO BEDTIME [facility] Last Admin: 10/15/18 20:42 Dose: 20 mg Benzocaine/Menthol (Cepacol Sore Throat) 1 lozenge MUCMEM 6XDAY PRN PRN Reason: Sore Throat Last Admin: 09/27/18 15:32 Dose: 1 john Clopidogrel Bisulfate (Plavix) 75 mg PO DAILY [facility] Last Admin: 10/16/18 08:25 Dose: 75 mg Diphenoxylate HCl/Atropine (Lomotil 0.025-2.5 Mg) 1 tab PO QID PRN PRN Reason: Diarrhea Last Admin: 10/15/18 20:53 Dose: 1 tab Finasteride (Proscar) 5 mg PO DAILY [facility] Last Admin: 10/16/18 08:25 Dose: 5 mg Fluticasone Propionate (Flonase) 0 gm NASBOTH DAILY [facility] Last Admin: 10/16/18 08:25 Dose: 1 spray Haloperidol Lactate (Haldol) 1 mg IVPUSH Q2H PRN PRN Reason: Agitation Last Admin: 10/13/18 03:38 Dose: 1 mg Heparin Sodium (Porcine) (Heparin Lock Flush 100 Units/Ml) 250 units 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 Last Admin: 10/16/18 04:49 Dose: 250 units Multivitamins/Minerals 10 ml/Chromium/Copper/Manganese/Seleni/Zn 1 ml/ Amino Acids/Dextrose 2,011 mls @ 82 mls/hr IV .BY DURATION [facility] Last Admin: 10/16/18 09:46 Dose: 82 mls/hr Amino Acids/Dextrose (Clinimix 5/15) 2,000 mls @ 82 mls/hr IV .BY DURATION [facility] Fat Emulsion Intravenous (Intralipid 20%) 100 mls @ 8.3 mls/hr IV Q24H [facility] Last Admin: 10/15/18 17:09 Dose: 8.3 mls/hr Lactobacillus Rhamnosus (Culturelle) 1 cap PO BID [facility] Last Admin: 10/16/18 08:24 Dose: 1 cap Levetiracetam (Keppra) 500 mg PO BID [facility] Last Admin: 10/16/18 08:25 Dose: 500 mg Levothyroxine Sodium (Synthroid) 100 mcg PO ACBREAKFAST [facility] Last Admin: 10/16/18 08:23 Dose: 100 mcg Loratadine (Claritin Reditabs) 10 mg PO DAILY [facility] Last Admin: 10/16/18 08:24 Dose: 10 mg Melatonin (Melatonin) 9 mg PO BEDTIME [facility] Last Admin: 10/15/18 20:42 Dose: 9 mg Morphine Sulfate (Morphine) 4 mg IVPUSH Q2H PRN PRN Reason: air hunger/chest tightness Non-Formulary Medication (Total Parenteral Nutrition, Central) 1,000 ml .XX .Continue Order [facility] Stop: 10/16/18 12:00 Pantoprazole Sodium (Protonix) 40 mg PO ACBREAKFAST [facility] Last Admin: 10/16/18 08:23 Dose: 40 mg Sodium Chloride (Saline Flush) 5 ml IV 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 Last Admin: 10/08/18 05:46 Dose: 5 ml Sodium Chloride ([place] Nasal [place]) 0 ml ARABELLA Q2H PRN PRN Reason: nasal congestion Tamsulosin HCl (Flomax) 0.4 mg PO DAILY [facility] Last Admin: 10/16/18 08:25 Dose: 0.4 mg Discontinued Medications Acetazolamide (Diamox) 250 mg IVPUSH Q6H [facility] Stop: 10/05/18 22:01 Last Admin: 10/05/18 22:12 Dose: 250 mg Acetazolamide (Diamox) 250 mg IVPUSH Q12H [facility] Stop: 10/06/18 22:01 Last Admin: 10/06/18 21:46 Dose: 250 mg Albuterol/Ipratropium (Duoneb 3.0-0.5 Mg/3 Ml) 3 ml NEB Q6H [facility] Last Admin: 09/29/18 19:53 Dose: 3 ml Albuterol/Ipratropium (Duoneb 3.0-0.5 Mg/3 Ml) 3 ml NEB Q2H PRN PRN Reason: shortness of breath Last Admin: 10/01/18 17:31 Dose: 3 ml Bupivacaine HCl (Marcaine 0.5%) Confirm Administered Dose 50 ml .ROUTE .STK-MED ONE Stop: 09/27/18 07:25 Last Admin: 09/27/18 09:39 Dose: 7 ml Clopidogrel Bisulfate (Plavix) 75 mg PO ONETIME ONE Stop: 10/10/18 15:13 Last Admin: 10/10/18 15:58 Dose: 75 mg Divalproex Sodium (Divalproex Sodium) 250 mg PO BIDMEALS [facility] Last Admin: 10/08/18 09:11 Dose: 250 mg Fentanyl (Sublimaze) Confirm Administered Dose 100 mcg .ROUTE .STK-MED ONE Stop: 09/27/18 07:07 Furosemide (Lasix) 20 mg PO BIDDIURETIC [facility] Last Admin: 09/27/18 15:03 Dose: Not Given Furosemide (Lasix) 20 mg IV ONETIME ONE Stop: 09/27/18 16:01 Last Admin: 09/27/18 15:08 Dose: 20 mg Furosemide (Lasix) 40 mg IVPUSH ONETIME ONE Stop: 09/29/18 22:46 Last Admin: 09/29/18 23:04 Dose: 40 mg Furosemide (Lasix) 40 mg IVPUSH ONETIME ONE Stop: 09/30/18 08:11 Last Admin: 09/30/18 08:03 Dose: 40 mg Furosemide (Lasix) 20 mg PO BIDDIURETIC [facility] Last Admin: 10/02/18 10:25 Dose: Not Given Furosemide (Lasix) 20 mg IV ONETIME ONE Stop: 10/01/18 10:01 Last Admin: 10/01/18 09:36 Dose: 20 mg Furosemide (Lasix) 20 mg IVPUSH ONETIME ONE Stop: 10/01/18 18:28 Last Admin: 10/01/18 18:34 Dose: 20 mg Furosemide (Lasix) 40 mg IVPUSH ONETIME ONE Stop: 10/01/18 21:45 Last Admin: 10/01/18 22:21 Dose: 40 mg Furosemide (Lasix) 40 mg IVPUSH ONETIME ONE Stop: 10/02/18 05:01 Last Admin: 10/02/18 05:13 Dose: 40 mg Furosemide 20 mg/ Furosemide (40 mg) 60 mg IV Q8H [facility] Last Admin: 10/03/18 09:11 Dose: 60 mg Furosemide (Lasix) 40 mg IV Q8H [facility] Last Admin: 10/05/18 04:02 Dose: 40 mg Furosemide (Lasix) 40 mg IV DAILY [facility] Last Admin: 10/06/18 09:37 Dose: 40 mg Furosemide (Lasix) 20 mg IV DAILY [facility] Furosemide (Lasix) 20 mg IVPUSH NOW ONE Stop: 10/08/18 10:10 Last Admin: 10/08/18 10:40 Dose: 20 mg Furosemide (Lasix) 40 mg IVPUSH Q8H [facility] Last Admin: 10/11/18 03:33 Dose: 40 mg Furosemide (Lasix) 20 mg IVPUSH ONETIME ONE Stop: 10/13/18 11:01 Furosemide (Lasix) 40 mg IVPUSH ONETIME ONE Stop: 10/13/18 19:01 Last Admin: 10/13/18 18:27 Dose: 40 mg Furosemide (Lasix) 40 mg IVPUSH ONETIME ONE Stop: 10/13/18 11:01 Last Admin: 10/13/18 10:15 Dose: 40 mg Furosemide (Lasix) 20 mg IVPUSH NOW ONE Stop: 10/14/18 10:31 Last Admin: 10/14/18 10:20 Dose: 20 mg Furosemide (Lasix) 40 mg IVPUSH NOW ONE Stop: 10/15/18 11:01 Last Admin: 10/15/18 11:34 Dose: 40 mg Haloperidol Lactate (Haldol) 1 mg IVPUSH Q2H PRN PRN Reason: Agitation Heparin Sodium (Porcine) (Heparin Lock Flush 100 Units/Ml) Confirm Administered Dose 1,500 units .ROUTE .STK-MED ONE Stop: 09/27/18 07:26 Last Admin: 09/27/18 09:39 Dose: 1,500 units Dextrose/Lactated Ringer's (Dextrose 5%-Lactated Ringers) 1,000 mls @ 100 mls/ hr IV ASDIRECTED [facility] Stop: 09/26/18 20:59 Last Admin: 09/26/18 12:03 Dose: 100 mls/hr Albumin Human (Albumin 25%) 25 gm in 100 mls @ 25 mls/hr IV ONETIME ONE Stop: 09/26/18 20:59 Last Admin: 09/26/18 16:54 Dose: 25 mls/hr Multivitamins/Minerals 10 ml/Chromium/Copper/Manganese/Zinc 1 ml/ Thiamine HCl 100 mg/Dextrose/Lactated Ringer's 1,012 mls @ 100 mls/hr IV .Q10H8M [facility] Stop: 09/27/18 13:59 Last Admin: 09/27/18 11:43 Dose: 100 mls/hr Levofloxacin/Dextrose 500 mg/ (Premix) 100 mls @ 100 mls/hr IV ONETIME ONE Stop: 09/27/18 09:29 Last Admin: 09/27/18 20:47 Dose: Not Given Clindamycin Phosphate 900 mg/ (Sodium Chloride) 106 mls @ 212 mls/hr IV ONETIME ONE Stop: 09/27/18 09:59 Last Admin: 09/27/18 20:47 Dose: Not Given Lactated Ringer's (Ringers, Lactated) Confirm Administered Dose 1,000 mls @ as directed .ROUTE .STK-MED ONE Stop: 09/27/18 09:48 Albumin Human (Albumin 25%) 25 gm in 100 mls @ 25 mls/hr IV Q24H [facility] Stop: 09/30/18 15:59 Last Admin: 09/30/18 12:10 Dose: 25 mls/hr Multivitamins/Minerals 10 ml/Chromium/Copper/Manganese/Seleni/Zn 1 ml/ Amino Ac/ Electrol/Dextrose/Calcium 1,011 mls @ 80 mls/hr IV .BY DURATION [facility] Stop: 09/28/18 14:59 Last Admin: 09/27/18 14:31 Dose: 80 mls/hr Amino Ac/Electrol/Dextrose/Calcium (Clinimix E 5/15) 1,000 mls @ 80 mls/hr IV .BY DURATION [facility] Stop: 09/28/18 14:59 Last Admin: 09/28/18 03:13 Dose: 80 mls/hr Fat Emulsion Intravenous (Intralipid 20%) 100 mls @ 8.3 mls/hr IV ONETIME ONE Stop: 09/28/18 04:02 Last Admin: 09/27/18 16:30 Dose: 8.3 mls/hr Sodium Chloride (Normal Saline) 1,000 mls @ 0 mls/hr IV ASDIRECTED [facility] Stop: 09/28/18 11:59 Last Admin: 09/27/18 16:36 Dose: 25 mls/hr Acetaminophen 1,000 mg/ Premix 100 mls @ 400 mls/hr IV NOW ONE Stop: 09/27/18 13:14 Last Admin: 09/27/18 12:56 Dose: 400 mls/hr Levofloxacin/Dextrose 500 mg/ (Premix) 100 mls @ 100 mls/hr IV Q24H [facility] Last Admin: 09/28/18 07:28 Dose: 100 mls/hr Clindamycin Phosphate 900 mg/ (Sodium Chloride) 106 mls @ 212 mls/hr IV Q12H [facility] Last Admin: 09/28/18 21:42 Dose: 212 mls/hr Dextrose/Sodium Chloride (Dextrose 5%-1/2 Ns) 1,000 mls @ 0 mls/hr IV ASDIRECTED [facility] Last Admin: 10/01/18 15:04 Dose: 25 mls/hr Magnesium Sulfate 2 gm/ Premix 50 mls @ 25 mls/hr IV Q6H [facility] Stop: 10/01/18 05:59 Last Admin: 10/01/18 03:28 Dose: 25 mls/hr Albumin Human (Albumin 25%) 25 gm in 100 mls @ 25 mls/hr IV Q24H [facility] Stop: 09/30/18 19:59 Last Admin: 09/30/18 16:39 Dose: 25 mls/hr Multivitamins/Minerals 10 ml/Chromium/Copper/Manganese/Seleni/Zn 1 ml/ Amino Ac/ Electrol/Dextrose/Calcium 1,011 mls @ 80 mls/hr IV .BY DURATION [facility] Stop: 09/30/18 17:15 Last Admin: 09/29/18 16:05 Dose: 80 mls/hr Amino Ac/Electrol/Dextrose/Calcium (Clinimix E 5/15) 1,000 mls @ 80 mls/hr IV .BY DURATION [facility] Stop: 09/30/18 17:15 Last Admin: 09/30/18 05:54 Dose: 80 mls/hr Fat Emulsion Intravenous (Intralipid 20%) 100 mls @ 9 mls/hr IV ONETIME ONE Stop: 09/29/18 05:06 Last Admin: 09/28/18 17:39 Dose: 9 mls/hr Potassium Phosphate 15 mmole/ (Sodium Chloride) 105 mls @ 50 mls/hr IV Q2H [facility] Stop: 09/30/18 15:59 Last Admin: 09/30/18 14:32 Dose: 50 mls/hr Multivitamins/Minerals 10 ml/Chromium/Copper/Manganese/Seleni/Zn 1 ml/ Amino Ac/ Electrol/Dextrose/Calcium 1,011 mls @ 60 mls/hr IV .BY DURATION [facility] Stop: 10/02/18 20:00 Last Infusion: 10/02/18 09:00 Dose: 40 mls/hr Amino Ac/Electrol/Dextrose/Calcium (Clinimix E 5/15) 1,000 mls @ 60 mls/hr IV .BY DURATION [facility] Stop: 10/02/18 20:00 Last Admin: 10/01/18 13:24 Dose: 60 mls/hr Albumin Human (Albumin 25%) 25 gm in 100 mls @ 25 mls/hr IV Q24H [facility] Stop: 10/03/18 15:59 Last Admin: 10/01/18 12:18 Dose: 25 mls/hr Albumin Human (Albumin 25%) 25 gm in 100 mls @ 25 mls/hr IV Q24H [facility] Stop: 10/03/18 19:59 Last Admin: 10/01/18 16:38 Dose: 25 mls/hr Fat Emulsion Intravenous (Intralipid 20%) 250 mls @ 21 mls/hr IV ONETIME ONE Stop: 10/02/18 05:54 Last Admin: 10/01/18 17:31 Dose: 21 mls/hr Fat Emulsion Intravenous (Intralipid 20%) 250 mls @ 21 mls/hr IV Q24H [facility] Potassium Chloride 20 meq/Lidocaine HCl 2 ml/ Sodium Chloride 112 mls @ 50 mls/ hr IV Q2H [facility] Stop: 10/02/18 07:29 Last Admin: 10/02/18 06:32 Dose: Not Given Potassium Chloride 40 meq/ (Premix) 100 mls @ 25 mls/hr IV ONETIME ONE Stop: 10/02/18 07:30 Last Admin: 10/02/18 03:50 Dose: 25 mls/hr Potassium Chloride (Kcl 40 Meq In Water 100 Ml) Confirm Administered Dose 100 mls @ as directed .ROUTE .STK-MED ONE Stop: 10/02/18 03:50 Last Admin: 10/02/18 04:03 Dose: Not Given Potassium Phosphate 22.5 mmole (/ Sodium Chloride) 107.5 mls @ 26 mls/hr IV Q4H [facility] Stop: 10/02/18 18:29 Last Admin: 10/02/18 14:34 Dose: 26 mls/hr Multivitamins/Minerals 10 ml/Chromium/Copper/Manganese/Seleni/Zn 1 ml/ Amino Ac/ Electrol/Dextrose/Calcium 1,011 mls @ 40 mls/hr IV .BY DURATION [facility] Stop: 10/03/18 23:30 Last Admin: 10/03/18 05:34 Dose: 40 mls/hr Amino Ac/Electrol/Dextrose/Calcium (Clinimix E 01/11) 1,000 mls @ 40 mls/hr IV .BY DURATION [facility] Stop: 10/03/18 23:30 Potassium Chloride 40 meq/ (Premix) 100 mls @ 25 mls/hr IV ONETIME ONE Stop: 10/03/18 12:59 Last Admin: 10/03/18 08:20 Dose: 25 mls/hr Linezolid 600 mg/ Premix 300 mls @ 300 mls/hr IV Q12H [facility] Last Admin: 10/07/18 08:06 Dose: 300 mls/hr Multivitamins/Minerals 10 ml/Chromium/Copper/Manganese/Seleni/Zn 1 ml/ Amino Ac/ Electrol/Dextrose/Calcium 1,011 mls @ 40 mls/hr IV .BY DURATION [facility] Last Admin: 10/04/18 04:56 Dose: 40 mls/hr Amino Ac/Electrol/Dextrose/Calcium (Clinimix E 5/15) 1,000 mls @ 40 mls/hr IV .BY DURATION [facility] Piperacillin/Tazobactam/ (Dextrose 3.375 gm/ Premix) 50 mls @ 100 mls/hr IV Q6H [facility] Last Admin: 10/07/18 04:13 Dose: 100 mls/hr Levofloxacin/Dextrose 750 mg/ (Premix) 150 mls @ 100 mls/hr IV Q24H [facility] Last Admin: 10/08/18 16:08 Dose: 100 mls/hr Potassium Phosphate 22.5 mmole (/ Sodium Chloride) 107.5 mls @ 27 mls/hr IV Q4H [facility] Stop: 10/04/18 17:59 Last Admin: 10/04/18 13:34 Dose: 27 mls/hr Multivitamins/Minerals 10 ml/Chromium/Copper/Manganese/Seleni/Zn 1 ml/ Amino Ac/ Electrol/Dextrose/Calcium 1,011 mls @ 40 mls/hr IV .BY DURATION [facility] Stop: 10/05/18 21:59 Last Admin: 10/05/18 04:44 Dose: 40 mls/hr Amino Ac/Electrol/Dextrose/Calcium (Clinimix E 5/15) 1,000 mls @ 40 mls/hr IV .BY DURATION [facility] Stop: 10/05/18 21:59 Potassium Chloride 20 meq/ (Premix) 100 mls @ 50 mls/hr IV ONETIME ONE Stop: 10/05/18 09:59 Last Admin: 10/05/18 08:01 Dose: 50 mls/hr Potassium Chloride 40 meq/ (Premix) 100 mls @ 25 mls/hr IV ONETIME ONE Stop: 10/05/18 13:59 Last Admin: 10/05/18 10:16 Dose: 25 mls/hr Magnesium Sulfate 2 gm/ Premix 50 mls @ 25 mls/hr IV Q6H [facility] Stop: 10/07/18 05:59 Last Admin: 10/07/18 04:14 Dose: 25 mls/hr Multivitamins/Minerals 10 ml/Chromium/Copper/Manganese/Seleni/Zn 1 ml/ Amino Ac/ Electrol/Dextrose/Calcium 1,011 mls @ 60 mls/hr IV .BY DURATION [facility] Stop: 10/06/18 13:55 Amino Ac/Electrol/Dextrose/Calcium (Clinimix E 5/15) 1,000 mls @ 60 mls/hr IV .BY DURATION [facility] Stop: 10/06/18 13:55 Last Admin: 10/06/18 00:34 Dose: 60 mls/hr Potassium Chloride 40 meq/ (Premix) 100 mls @ 25 mls/hr IV ONETIME ONE Stop: 10/05/18 23:59 Last Admin: 10/05/18 20:05 Dose: 25 mls/hr Potassium Phosphate 20 mmole/ (Sodium Chloride) 106.6667 mls @ 35 mls/hr IV Q3H [facility] Stop: 10/06/18 16:59 Last Admin: 10/06/18 15:19 Dose: 35 mls/hr Multivitamins/Minerals 10 ml/Chromium/Copper/Manganese/Seleni/Zn 1 ml/ Amino Ac/ Electrol/Dextrose/Calcium 1,011 mls @ 60 mls/hr IV .BY DURATION [facility] Stop: 10/10/18 19:00 Last Admin: 10/09/18 15:06 Dose: 60 mls/hr Amino Ac/Electrol/Dextrose/Calcium (Clinimix E 5/15) 1,000 mls @ 60 mls/hr IV .BY DURATION [facility] Stop: 10/10/18 19:00 Last Admin: 10/10/18 08:18 Dose: 60 mls/hr Potassium Phosphate 20 mmole/ (Sodium Chloride) 106.6667 mls @ 36 mls/hr IV Q3H [facility] Stop: 10/07/18 17:58 Last Admin: 10/07/18 14:29 Dose: 36 mls/hr Linezolid 600 mg/ Premix 300 mls @ 300 mls/hr IV Q12H [facility] Last Admin: 10/08/18 22:32 Dose: 300 mls/hr Meropenem 1 gm/ Sodium (Chloride) 100 mls @ 200 mls/hr IV Q8H [facility] Last Admin: 10/09/18 02:33 Dose: 200 mls/hr Sodium Chloride (Normal Saline) 80 mls @ 3.5 mls/sec IV ONETIME ONE Stop: 10/08/18 09:51 Last Admin: 10/08/18 10:43 Dose: 4 mls/sec Meropenem 1 gm/ Sodium (Chloride) 50 mls @ 100 mls/hr IV Q8H [facility] Potassium Chloride 40 meq/ (Premix) 100 mls @ 25 mls/hr IV ONETIME ONE Stop: 10/09/18 13:29 Last Admin: 10/09/18 10:08 Dose: 25 mls/hr Potassium Phosphate 22.5 mmole (/ Sodium Chloride) 107.5 mls @ 26 mls/hr IV Q4H [facility] Stop: 10/10/18 17:29 Last Admin: 10/10/18 14:30 Dose: 26 mls/hr Multivitamins/Minerals 10 ml/Chromium/Copper/Manganese/Seleni/Zn 1 ml/ Amino Ac/ Electrol/Dextrose/Calcium 1,011 mls @ 60 mls/hr IV .BY DURATION [facility] Last Admin: 10/11/18 02:07 Dose: 60 mls/hr Amino Ac/Electrol/Dextrose/Calcium (Clinimix E 5/15) 1,000 mls @ 60 mls/hr IV .BY DURATION [facility] Multivitamins/Minerals 10 ml/Chromium/Copper/Manganese/Seleni/Zn 1 ml/ Amino Acids/Dextrose 2,011 mls @ 82 mls/hr IV .BY DURATION [facility] Last Admin: 10/11/18 08:19 Dose: 82 mls/hr Amino Acids/Dextrose (Clinimix 5/15) 2,000 mls @ 100 mls/hr IV .BY DURATION [facility] Fat Emulsion Intravenous (Intralipid 20%) 100 mls @ 8.3 mls/hr IV ONETIME ONE Stop: 10/12/18 04:02 Last Admin: 10/11/18 15:15 Dose: 8.3 mls/hr Levetiracetam 500 mg/ Sodium (Chloride) 105 mls @ 400 mls/hr IV Q12H [facility] Stop: 10/12/18 14:00 Last Admin: 10/12/18 11:14 Dose: 400 mls/hr Potassium Phosphate 20 mmole/ (Dextrose/Water) 106.6667 mls @ 35 mls/hr IV Q3H [facility] Stop: 10/12/18 17:59 Last Admin: 10/12/18 16:36 Dose: 35 mls/hr Potassium Phosphate 15 mmole/ (Dextrose/Water) 105 mls @ 35 mls/hr IV Q3H [facility] Stop: 10/13/18 16:59 Last Admin: 10/13/18 14:24 Dose: 35 mls/hr Iopamidol (Isovue-370 (76%)) 52 ml IV . DIRECTED [facility] Stop: 10/08/18 11:00 Last Admin: 10/08/18 10:44 Dose: 52 ml Lidocaine HCl (Xylocaine 2% Jelly) 10 ml MUCMEM ONETIME ONE Stop: 10/01/18 21:56 Last Admin: 10/01/18 22:04 Dose: 10 ml Lidocaine HCl (Xylocaine 2% Jelly) 10 ml MUCMEM ONETIME ONE Stop: 10/07/18 11:31 Last Admin: 10/07/18 13:49 Dose: 10 ml Lidocaine/Epinephrine (Xylocaine 1% With Epinephrine 1:100,000) Confirm Administered Dose 50 ml .ROUTE .STK-MED ONE Stop: 09/27/18 07:26 Last Admin: 09/27/18 09:40 Dose: 7 ml Loperamide HCl (Imodium) 2 mg PO QID [facility] Last Admin: 10/02/18 05:13 Dose: 2 mg Loperamide HCl (Imodium) 2 mg PO QID PRN PRN Reason: DIARRHEA Last Admin: 10/15/18 08:38 Dose: 2 mg Lorazepam (Ativan) 0.5 mg IVPUSH Q4H PRN PRN Reason: Anxiety Last Admin: 10/07/18 04:13 Dose: 0.5 mg Melatonin (Melatonin) 9 mg PO BEDTIME [facility] Last Admin: 10/09/18 21:33 Dose: Not Given Midazolam HCl (Versed 1 Mg/Ml) Confirm Administered Dose 2 mg .ROUTE .STK-MED ONE Stop: 09/27/18 07:08 Non-Formulary Medication (Total Parenteral Nutrition, Central) 1,000 ml .XX .Continue Order [facility] Stop: 09/29/18 12:00 Non-Formulary Medication (Total Parenteral Nutrition, Central) 1,000 ml .XX .Continue Order [facility] Stop: 09/30/18 09:00 Non-Formulary Medication (Total Parenteral Nutrition, Central) 1,000 ml .XX .Continue Order [facility] Stop: 10/15/18 10:00 Pantoprazole Sodium (Protonix Iv) 40 mg IV Q24H [facility] Last Admin: 09/29/18 14:31 Dose: 40 mg Polyethylene Glycol (Miralax) 238 gm PO ONETIME ONE Stop: 09/26/18 17:01 Last Admin: 09/26/18 16:54 Dose: 238 gram Potassium Chloride (Klor-Con M20) 40 meq PO ONETIME ONE Stop: 10/06/18 10:01 Last Admin: 10/06/18 09:55 Dose: 40 meq Potassium Chloride (Klor-Con M20) 40 meq PO ONETIME ONE Stop: 10/06/18 17:46 Last Admin: 10/06/18 21:46 Dose: Not Given Potassium Chloride (Klor-Con M20) 40 meq PO ONETIME ONE Stop: 10/06/18 21:01 Last Admin: 10/06/18 21:46 Dose: 40 meq Potassium Chloride (Klor-Con M20) 40 meq PO ONETIME ONE Stop: 10/07/18 08:46 Last Admin: 10/07/18 09:00 Dose: 40 meq Potassium Chloride (Klor-Con M20) 40 meq PO ONETIME ONE Stop: 10/07/18 12:01 Last Admin: 10/07/18 11:48 Dose: 40 meq Potassium Chloride (Klor-Con M20) 40 meq PO ONETIME ONE Stop: 10/09/18 09:01 Last Admin: 10/09/18 09:07 Dose: 40 meq Potassium Chloride (Klor-Con M20) 40 meq PO ONETIME ONE Stop: 10/09/18 12:01 Last Admin: 10/09/18 12:54 Dose: 40 meq Potassium Chloride (Klor-Con M20) 40 meq PO ONETIME ONE Stop: 10/09/18 17:01 Last Admin: 10/09/18 19:34 Dose: Not Given Propofol (Diprivan 20 Ml) Confirm Administered Dose 200 mg .ROUTE .STK-MED ONE Stop: 09/27/18 07:07 Propofol (Diprivan 20 Ml) Confirm Administered Dose 200 mg .ROUTE .STK-MED ONE Stop: 09/27/18 09:05 Sodium Chloride (Saline Flush) 10 ml FLUSH ONETIME ONE Stop: 10/08/18 09:51 Last Admin: 10/08/18 10:44 Dose: 10 ml Tramadol HCl (Ultram) 50 mg PO Q4H PRN PRN Reason: Pain Last Admin: 09/27/18 15:17 Dose: 50 mg - Exam Quality Assessment: Central Line/PICC, Urine Catheter, DVT Prophylaxis. No: Supplemental Oxygen General: Alert, Oriented, Cooperative, No Acute Distress Lungs: Clear to Auscultation, Normal Respiratory Effort Cardiovascular: Regular Rate, Regular Rhythm, No Murmurs GI/Abdominal Exam: Soft, Non-Tender, No Organomegaly, No Distention Extremities: Non-Tender, No Pedal Edema - Problem List Review Problem List Initiated/Reviewed/Updated: Yes - My Orders Last 24 Hours: My Active Orders 10/15/18 10:48 Patient Status [ADT] Routine 10/15/18 10:50 Atropine/Diphenoxylate [Lomotil 0.025-2.5 MG] 1 tab PO QID PRN 10/15/18 10:51 Communication Order [RC] ASDIRECTED 10/15/18 11:00 Finasteride [Proscar] 5 mg PO DAILY 10/16/18 11:03 Remove Gibbons Catheter [Urinary Catheter Removal] [RC] Per Unit Routine 10/16/18 11:04 Discontinue Telemetry Monitoring [Cardiac Monitoring Discontinue] [RC] Click to Edit - Plan Plan:: ASSESSMENT AND PLAN - ARDS/Acute respiratory failure with hypoxia - respiratory status stable, early on room air -Hold furosemide today -Supplement oxygen as needed -minimize fluid intake beyond TPN -goal level for transfusion of a hemoglobin less than 8 Orthostatic hypotension-blood pressures improved over the last 24 hours -High sodium diet -Head of bed elevated at 45 at all times -Thigh high support hose -Consider addition of medical therapy Acute left parietal stroke - minimal residual symptoms -Continue aspirin, and clopidogrel -Continue statin -Occupational therapy Probable seizure - episode of rigidity and unresponsiveness 10/11. Tolerated initiation of Keppra and has not had a recurrent episode. -Continue Keppra, transitioned to oral Urinary retention -Trial of catheter removal today -Flomax 0.4 mg by mouth daily -Proscar 5 mg by mouth daily Hypoactive Delirium with mild agitation - no evidence for infection. I suspect this is related to his CVA and he has done well for the past 2 days. -Melatonin 9 mg by mouth daily at bedtime Pancytopenia - white blood cell count and platelets are now within normal range , likely nutritional. Persistent anemia likely chronic related to underlying health problems.
[2018-10-16] MEDS: Fat Emulsion 100 ML IV SCH (17:00)
[2018-10-16] MEDS: Acetaminophen 325 MG Tab PO PRN (20:18)
[2018-10-16] MEDS: Melatonin 3 MG Tab PO SCH (20:44)
[2018-10-16] MEDS: atorvaSTATin 20 MG Tab PO SCH (20:45)
[2018-10-17] MEDS: Albuterol/Ipratropium 3.0-0.5 MG/3 ML Neb Soln NEB SCH ×4 (07:18→21:38)
[2018-10-17] MEDS: Levothyroxine 100 MCG Tab PO SCH (07:35)
[2018-10-17] MEDS: Pantoprazole 40 MG Tab.CR PO SCH (07:36)
[2018-10-17] MEDS ORDERED: Central Total Parenteral Nutrition Bag SCH (07:45)
[2018-10-17] MEDS: Tamsulosin 0.4 MG Cap.ER PO SCH (08:43)
[2018-10-17] MEDS: Clopidogrel 75 MG Tab PO SCH (08:43)
[2018-10-17] MEDS: Aspirin 81 MG Tab.EC PO SCH (08:43)
[2018-10-17] MEDS: Loratadine 10 MG Tab.DIS PO SCH (08:43)
[2018-10-17] MEDS: Magnesium Sulfate/Water 2 GM in Premix Bag 1 BAG IV SCH ×3 (08:43→21:16)
[2018-10-17] MEDS: Finasteride 5 MG Tab PO SCH (08:43)
[2018-10-17] MEDS: levETIRAcetam 250 MG Tab PO SCH ×2 (08:43→21:32)
[2018-10-17] MEDS: Acetaminophen 325 MG Tab PO PRN (08:43)
[2018-10-17] MEDS: Lactobacillus Rhamnosus GG (Probiotic) Cap PO SCH ×2 (08:43→21:33)
[2018-10-17] MEDS: Fluticasone Propionate Nasal Spray 16 GM Bottle NASBOTH SCH (08:46)
[2018-10-17] MEDS ORDERED: MVI IV SCH ×9 (09:30→09:45)
[2018-10-17] MEDS ORDERED: [UNRECOGNIZED DRUG - OTHER] IV SCH ×9 (09:30→09:45)
[2018-10-17] MEDS ORDERED: VITAMIN K IV SCH ×9 (09:30→09:45)
[2018-10-17] MEDS ORDERED: DEXTROSE 15% IV SCH ×9 (09:30→09:45)
[2018-10-17] MEDS ORDERED: AMINO ACIDS IV SCH ×9 (09:30→09:45)
[2018-10-17] MEDS ORDERED: CHROMIUM IV SCH ×9 (09:30→09:45)
[2018-10-17] MEDS ORDERED: Atropine/Diphenoxylate 0.025-2.5 MG Tab PO PRN (09:58)
[2018-10-17] MEDS ORDERED: Furosemide 40 MG/4 ML VIAL IVPUSH ONE (10:15)
--- NOTE | 2018-10-17 10:30 | PCM.PN ---
- General Info Date of Service: 10/17/18 Subjective Update: Mr. Griffith has been stable since yesterday, slow increase in strength and activity. Slowly improving as far as oral intake, diarrhea has improved with use of Lomotil. Functional Status: Reports: Tolerating Diet, Ambulating, Urinating - Review of Systems General: Reports: Weakness. Denies: Fever, Chills Pulmonary: Reports: No Symptoms Cardiovascular: Reports: No Symptoms Gastrointestinal: Reports: Decreased Appetite, Diarrhea. Denies: Abdominal Pain , Difficulty Swallowing, Hematochezia, Melena, Nausea, Vomiting - Patient Data Vitals - Most Recent: Last Vital Signs Temp 92.5 F L 10/17/18 07:00 Pulse 62 10/17/18 07:16 Resp 18 10/17/18 07:00 BP 93/57 L 10/17/18 07:00 Pulse Ox 97 10/17/18 07:00 Weight - Most Recent: 98 lb 12.8 oz I&O - Last 24 Hours: Intake & Output 10/16/18 10/17/18 10/17/18 22:59 06:59 14:59 Intake Total 240 2050 160 Output Total 400 300 600 Balance -160 1750 -440 Lab Results Last 24 Hours: Laboratory Results - last 24 hr 10/13/18 10/17/18 10/17/18 Range/Units 04:00 04:36 04:36 WBC 7.2 (4.5-11.0) K/uL RBC 3.29 L (4.30-5.90) M/uL Hgb 9.7 L (12.0-15.0) g/dL Hct 30.3 L (40.0-54.0) % MCV 92 (80-98) fL MCH 30 (27-31) pg MCHC 32 (32-36) % Plt Count 193 (150-400) K/uL Sodium 135 L (140-148) mmol/L Potassium 5.3 H (3.6-5.2) mmol/L Chloride 106 (100-108) mmol/L Carbon Dioxide 25 (21-32) mmol/L Anion Gap 9.3 (5.0-14.0) mmol/L BUN 43 H (7-18) mg/dL Creatinine 0.7 L (0.8-1.3) mg/dL Est Cr Clr Drug Dosing 72.91 mL/min Estimated GFR (MDRD) > 60 (>60) Glucose 288 H (74-106) mg/dL Calcium 8.4 L (8.5-10.1) mg/dL Phosphorus 3.3 (2.5-4.9) mg/dL Magnesium 1.6 L (1.8-2.4) mg/dL Total Bilirubin 0.7 (0.2-1.0) mg/dL AST 71 H (15-37) U/L ALT 142 H (12-78) U/L Alkaline Phosphatase 235 H (46-116) U/L NT-Pro-B Natriuret Pep 69 (5-125) pg/mL Total Protein 4.9 L (6.4-8.2) g/dL Albumin 1.8 L (3.4-5.0) g/dL Globulin 3.1 (2.3-3.5) g/dL Albumin/Globulin Ratio 0.6 L (1.2-2.2) Crossmatch See Detail Med Orders - Current: Current Medications Acetaminophen (Tylenol) 650 mg PO Q4H PRN PRN Reason: ANALGESIA/FEVER Last Admin: 10/17/18 08:43 Dose: 650 mg Acetaminophen (Tylenol) 650 mg RECTAL Q4H PRN PRN Reason: ANALGESIA/FEVER Albuterol (Proventil Neb Soln) 2.5 mg NEB Q2H PRN PRN Reason: Shortness of Breath Last Admin: 10/10/18 00:10 Dose: 2.5 mg Albuterol/Ipratropium (Duoneb 3.0-0.5 Mg/3 Ml) 3 ml NEB QIDRT [facility] Last Admin: 10/17/18 07:18 Dose: 3 ml Aspirin (Halfprin) 81 mg PO DAILY [facility] Last Admin: 10/17/18 08:43 Dose: 81 mg Atorvastatin Calcium (Lipitor) 20 mg PO BEDTIME [facility] Last Admin: 10/16/18 20:45 Dose: 20 mg Benzocaine/Menthol (Cepacol Sore Throat) 1 lozenge MUCMEM 6XDAY PRN PRN Reason: Sore Throat Last Admin: 09/27/18 15:32 Dose: 1 john Clopidogrel Bisulfate (Plavix) 75 mg PO DAILY [facility] Last Admin: 10/17/18 08:43 Dose: 75 mg Diphenoxylate HCl/Atropine (Lomotil 0.025-2.5 Mg) 1 tab PO BID [facility] Diphenoxylate HCl/Atropine (Lomotil 0.025-2.5 Mg) 1 tab PO Q6H PRN PRN Reason: Diarrhea Finasteride (Proscar) 5 mg PO DAILY [facility] Last Admin: 10/17/18 08:43 Dose: 5 mg Fluticasone Propionate (Flonase) 0 gm NASBOTH DAILY [facility] Last Admin: 10/17/18 08:46 Dose: 2 spray Haloperidol Lactate (Haldol) 1 mg IVPUSH Q2H PRN PRN Reason: Agitation Last Admin: 10/13/18 03:38 Dose: 1 mg Heparin Sodium (Porcine) (Heparin Lock Flush 100 Units/Ml) 250 units 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 Last Admin: 10/16/18 04:49 Dose: 250 units Fat Emulsion Intravenous (Intralipid 20%) 100 mls @ 8.3 mls/hr IV Q24H [facility] Last Admin: 10/16/18 17:00 Dose: 8.3 mls/hr Magnesium Sulfate 2 gm/ Premix 50 mls @ 25 mls/hr IV Q6H [facility] Stop: 10/20/18 03:59 Last Admin: 10/17/18 08:43 Dose: 25 mls/hr Multivitamins/Minerals 10 ml/Chromium/Copper/Manganese/Seleni/Zn 1 ml/ Amino Acids/Dextrose 1,011 mls @ 40 mls/hr IV .BY DURATION [facility] Amino Acids/Dextrose (Clinimix 5/15) 1,000 mls @ 40 mls/hr IV .BY DURATION [facility] Lactobacillus Rhamnosus (Culturelle) 1 cap PO BID [facility] Last Admin: 10/17/18 08:43 Dose: 1 cap Levetiracetam (Keppra) 500 mg PO BID [facility] Last Admin: 10/17/18 08:43 Dose: 500 mg Levothyroxine Sodium (Synthroid) 100 mcg PO ACBREAKFAST [facility] Last Admin: 10/17/18 07:35 Dose: 100 mcg Loratadine (Claritin Reditabs) 10 mg PO DAILY [facility] Last Admin: 10/17/18 08:43 Dose: 10 mg Melatonin (Melatonin) 9 mg PO BEDTIME [facility] Last Admin: 10/16/18 20:44 Dose: 9 mg Morphine Sulfate (Morphine) 4 mg IVPUSH Q2H PRN PRN Reason: air hunger/chest tightness Non-Formulary Medication (Total Parenteral Nutrition, Central) 1,000 ml .XX .Continue Order [facility] Stop: 10/17/18 12:00 Pantoprazole Sodium (Protonix) 40 mg PO ACBREAKFAST [facility] Last Admin: 10/17/18 07:36 Dose: 40 mg Sodium Chloride (Saline Flush) 5 ml IV 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 Last Admin: 10/08/18 05:46 Dose: 5 ml Sodium Chloride ([place] Nasal [place]) 0 ml ARABELLA Q2H PRN PRN Reason: nasal congestion Tamsulosin HCl (Flomax) 0.4 mg PO DAILY [facility] Last Admin: 10/17/18 08:43 Dose: 0.4 mg Discontinued Medications Acetazolamide (Diamox) 250 mg IVPUSH Q6H [facility] Stop: 10/05/18 22:01 Last Admin: 10/05/18 22:12 Dose: 250 mg Acetazolamide (Diamox) 250 mg IVPUSH Q12H [facility] Stop: 10/06/18 22:01 Last Admin: 10/06/18 21:46 Dose: 250 mg Albuterol/Ipratropium (Duoneb 3.0-0.5 Mg/3 Ml) 3 ml NEB Q6H [facility] Last Admin: 09/29/18 19:53 Dose: 3 ml Albuterol/Ipratropium (Duoneb 3.0-0.5 Mg/3 Ml) 3 ml NEB Q2H PRN PRN Reason: shortness of breath Last Admin: 10/01/18 17:31 Dose: 3 ml Bupivacaine HCl (Marcaine 0.5%) Confirm Administered Dose 50 ml .ROUTE .STK-MED ONE Stop: 09/27/18 07:25 Last Admin: 09/27/18 09:39 Dose: 7 ml Clopidogrel Bisulfate (Plavix) 75 mg PO ONETIME ONE Stop: 10/10/18 15:13 Last Admin: 10/10/18 15:58 Dose: 75 mg Diphenoxylate HCl/Atropine (Lomotil 0.025-2.5 Mg) 1 tab PO QID PRN PRN Reason: Diarrhea Last Admin: 10/15/18 20:53 Dose: 1 tab Divalproex Sodium (Divalproex Sodium) 250 mg PO BIDMEALS [facility]SE Last Admin: 10/08/18 09:11 Dose: 250 mg Fentanyl (Sublimaze) Confirm Administered Dose 100 mcg .ROUTE .STK-MED ONE Stop: 09/27/18 07:07 Furosemide (Lasix) 20 mg PO BIDDIURETIC [facility]YSE Last Admin: 09/27/18 15:03 Dose: Not Given Furosemide (Lasix) 20 mg IV ONETIME ONE Stop: 09/27/18 16:01 Last Admin: 09/27/18 15:08 Dose: 20 mg Furosemide (Lasix) 40 mg IVPUSH ONETIME ONE Stop: 09/29/18 22:46 Last Admin: 09/29/18 23:04 Dose: 40 mg Furosemide (Lasix) 40 mg IVPUSH ONETIME ONE Stop: 09/30/18 08:11 Last Admin: 09/30/18 08:03 Dose: 40 mg Furosemide (Lasix) 20 mg PO BIDDIURETIC ELYSE Last Admin: 10/02/18 10:25 Dose: Not Given Furosemide (Lasix) 20 mg IV ONETIME ONE Stop: 10/01/18 10:01 Last Admin: 10/01/18 09:36 Dose: 20 mg Furosemide (Lasix) 20 mg IVPUSH ONETIME ONE Stop: 10/01/18 18:28 Last Admin: 10/01/18 18:34 Dose: 20 mg Furosemide (Lasix) 40 mg IVPUSH ONETIME ONE Stop: 10/01/18 21:45 Last Admin: 10/01/18 22:21 Dose: 40 mg Furosemide (Lasix) 40 mg IVPUSH ONETIME ONE Stop: 10/02/18 05:01 Last Admin: 10/02/18 05:13 Dose: 40 mg Furosemide 20 mg/ Furosemide (40 mg) 60 mg IV Q8H [facility]YSE Last Admin: 10/03/18 09:11 Dose: 60 mg Furosemide (Lasix) 40 mg IV Q8H [facility]YSE Last Admin: 10/05/18 04:02 Dose: 40 mg Furosemide (Lasix) 40 mg IV DAILY [facility] Last Admin: 10/06/18 09:37 Dose: 40 mg Furosemide (Lasix) 20 mg IV DAILY [facility] Furosemide (Lasix) 20 mg IVPUSH NOW ONE Stop: 10/08/18 10:10 Last Admin: 10/08/18 10:40 Dose: 20 mg Furosemide (Lasix) 40 mg IVPUSH Q8H [facility] Last Admin: 10/11/18 03:33 Dose: 40 mg Furosemide (Lasix) 20 mg IVPUSH ONETIME ONE Stop: 10/13/18 11:01 Furosemide (Lasix) 40 mg IVPUSH ONETIME ONE Stop: 10/13/18 19:01 Last Admin: 10/13/18 18:27 Dose: 40 mg Furosemide (Lasix) 40 mg IVPUSH ONETIME ONE Stop: 10/13/18 11:01 Last Admin: 10/13/18 10:15 Dose: 40 mg Furosemide (Lasix) 20 mg IVPUSH NOW ONE Stop: 10/14/18 10:31 Last Admin: 10/14/18 10:20 Dose: 20 mg Furosemide (Lasix) 40 mg IVPUSH NOW ONE Stop: 10/15/18 11:01 Last Admin: 10/15/18 11:34 Dose: 40 mg Furosemide (Lasix) 40 mg IVPUSH NOW ONE Stop: 10/17/18 10:16 Last Admin: 10/17/18 10:17 Dose: 40 mg Haloperidol Lactate (Haldol) 1 mg IVPUSH Q2H PRN PRN Reason: Agitation Heparin Sodium (Porcine) (Heparin Lock Flush 100 Units/Ml) Confirm Administered Dose 1,500 units .ROUTE .STK-MED ONE Stop: 09/27/18 07:26 Last Admin: 09/27/18 09:39 Dose: 1,500 units Dextrose/Lactated Ringer's (Dextrose 5%-Lactated Ringers) 1,000 mls @ 100 mls/ hr IV ASDIRECTED [facility] Stop: 09/26/18 20:59 Last Admin: 09/26/18 12:03 Dose: 100 mls/hr Albumin Human (Albumin 25%) 25 gm in 100 mls @ 25 mls/hr IV ONETIME ONE Stop: 09/26/18 20:59 Last Admin: 09/26/18 16:54 Dose: 25 mls/hr Multivitamins/Minerals 10 ml/Chromium/Copper/Manganese/Zinc 1 ml/ Thiamine HCl 100 mg/Dextrose/Lactated Ringer's 1,012 mls @ 100 mls/hr IV .Q10H8M [facility] Stop: 09/27/18 13:59 Last Admin: 09/27/18 11:43 Dose: 100 mls/hr Levofloxacin/Dextrose 500 mg/ (Premix) 100 mls @ 100 mls/hr IV ONETIME ONE Stop: 09/27/18 09:29 Last Admin: 09/27/18 20:47 Dose: Not Given Clindamycin Phosphate 900 mg/ (Sodium Chloride) 106 mls @ 212 mls/hr IV ONETIME ONE Stop: 09/27/18 09:59 Last Admin: 09/27/18 20:47 Dose: Not Given Lactated Ringer's (Ringers, Lactated) Confirm Administered Dose 1,000 mls @ as directed .ROUTE .STK-MED ONE Stop: 09/27/18 09:48 Albumin Human (Albumin 25%) 25 gm in 100 mls @ 25 mls/hr IV Q24H [facility] Stop: 09/30/18 15:59 Last Admin: 09/30/18 12:10 Dose: 25 mls/hr Multivitamins/Minerals 10 ml/Chromium/Copper/Manganese/Seleni/Zn 1 ml/ Amino Ac/ Electrol/Dextrose/Calcium 1,011 mls @ 80 mls/hr IV .BY DURATION [facility] Stop: 09/28/18 14:59 Last Admin: 09/27/18 14:31 Dose: 80 mls/hr Amino Ac/Electrol/Dextrose/Calcium (Clinimix E 5/15) 1,000 mls @ 80 mls/hr IV .BY DURATION [facility] Stop: 09/28/18 14:59 Last Admin: 09/28/18 03:13 Dose: 80 mls/hr Fat Emulsion Intravenous (Intralipid 20%) 100 mls @ 8.3 mls/hr IV ONETIME ONE Stop: 09/28/18 04:02 Last Admin: 09/27/18 16:30 Dose: 8.3 mls/hr Sodium Chloride (Normal Saline) 1,000 mls @ 0 mls/hr IV ASDIRECTED [facility] Stop: 09/28/18 11:59 Last Admin: 09/27/18 16:36 Dose: 25 mls/hr Acetaminophen 1,000 mg/ Premix 100 mls @ 400 mls/hr IV NOW ONE Stop: 09/27/18 13:14 Last Admin: 09/27/18 12:56 Dose: 400 mls/hr Levofloxacin/Dextrose 500 mg/ (Premix) 100 mls @ 100 mls/hr IV Q24H [facility] Last Admin: 09/28/18 07:28 Dose: 100 mls/hr Clindamycin Phosphate 900 mg/ (Sodium Chloride) 106 mls @ 212 mls/hr IV Q12H [facility] Last Admin: 09/28/18 21:42 Dose: 212 mls/hr Dextrose/Sodium Chloride (Dextrose 5%-1/2 Ns) 1,000 mls @ 0 mls/hr IV ASDIRECTED [facility] Last Admin: 10/01/18 15:04 Dose: 25 mls/hr Magnesium Sulfate 2 gm/ Premix 50 mls @ 25 mls/hr IV Q6H [facility] Stop: 10/01/18 05:59 Last Admin: 10/01/18 03:28 Dose: 25 mls/hr Albumin Human (Albumin 25%) 25 gm in 100 mls @ 25 mls/hr IV Q24H [facility] Stop: 09/30/18 19:59 Last Admin: 09/30/18 16:39 Dose: 25 mls/hr Multivitamins/Minerals 10 ml/Chromium/Copper/Manganese/Seleni/Zn 1 ml/ Amino Ac/ Electrol/Dextrose/Calcium 1,011 mls @ 80 mls/hr IV .BY DURATION [facility] Stop: 09/30/18 17:15 Last Admin: 09/29/18 16:05 Dose: 80 mls/hr Amino Ac/Electrol/Dextrose/Calcium (Clinimix E 5/15) 1,000 mls @ 80 mls/hr IV .BY DURATION [facility] Stop: 09/30/18 17:15 Last Admin: 09/30/18 05:54 Dose: 80 mls/hr Fat Emulsion Intravenous (Intralipid 20%) 100 mls @ 9 mls/hr IV ONETIME ONE Stop: 09/29/18 05:06 Last Admin: 09/28/18 17:39 Dose: 9 mls/hr Potassium Phosphate 15 mmole/ (Sodium Chloride) 105 mls @ 50 mls/hr IV Q2H [facility] Stop: 09/30/18 15:59 Last Admin: 09/30/18 14:32 Dose: 50 mls/hr Multivitamins/Minerals 10 ml/Chromium/Copper/Manganese/Seleni/Zn 1 ml/ Amino Ac/ Electrol/Dextrose/Calcium 1,011 mls @ 60 mls/hr IV .BY DURATION [facility] Stop: 10/02/18 20:00 Last Infusion: 10/02/18 09:00 Dose: 40 mls/hr Amino Ac/Electrol/Dextrose/Calcium (Clinimix E 01/11) 1,000 mls @ 60 mls/hr IV .BY DURATION [facility] Stop: 10/02/18 20:00 Last Admin: 10/01/18 13:24 Dose: 60 mls/hr Albumin Human (Albumin 25%) 25 gm in 100 mls @ 25 mls/hr IV Q24H [facility] Stop: 10/03/18 15:59 Last Admin: 10/01/18 12:18 Dose: 25 mls/hr Albumin Human (Albumin 25%) 25 gm in 100 mls @ 25 mls/hr IV Q24H [facility] Stop: 10/03/18 19:59 Last Admin: 10/01/18 16:38 Dose: 25 mls/hr Fat Emulsion Intravenous (Intralipid 20%) 250 mls @ 21 mls/hr IV ONETIME ONE Stop: 10/02/18 05:54 Last Admin: 10/01/18 17:31 Dose: 21 mls/hr Fat Emulsion Intravenous (Intralipid 20%) 250 mls @ 21 mls/hr IV Q24H [facility] Potassium Chloride 20 meq/Lidocaine HCl 2 ml/ Sodium Chloride 112 mls @ 50 mls/ hr IV Q2H [facility] Stop: 10/02/18 07:29 Last Admin: 10/02/18 06:32 Dose: Not Given Potassium Chloride 40 meq/ (Premix) 100 mls @ 25 mls/hr IV ONETIME ONE Stop: 10/02/18 07:30 Last Admin: 10/02/18 03:50 Dose: 25 mls/hr Potassium Chloride (Kcl 40 Meq In Water 100 Ml) Confirm Administered Dose 100 mls @ as directed .ROUTE .STK-MED ONE Stop: 10/02/18 03:50 Last Admin: 10/02/18 04:03 Dose: Not Given Potassium Phosphate 22.5 mmole (/ Sodium Chloride) 107.5 mls @ 26 mls/hr IV Q4H [facility] Stop: 10/02/18 18:29 Last Admin: 10/02/18 14:34 Dose: 26 mls/hr Multivitamins/Minerals 10 ml/Chromium/Copper/Manganese/Seleni/Zn 1 ml/ Amino Ac/ Electrol/Dextrose/Calcium 1,011 mls @ 40 mls/hr IV .BY DURATION [facility] Stop: 10/03/18 23:30 Last Admin: 10/03/18 05:34 Dose: 40 mls/hr Amino Ac/Electrol/Dextrose/Calcium (Clinimix E 5/15) 1,000 mls @ 40 mls/hr IV .BY DURATION [facility] Stop: 10/03/18 23:30 Potassium Chloride 40 meq/ (Premix) 100 mls @ 25 mls/hr IV ONETIME ONE Stop: 10/03/18 12:59 Last Admin: 10/03/18 08:20 Dose: 25 mls/hr Linezolid 600 mg/ Premix 300 mls @ 300 mls/hr IV Q12H [facility] Last Admin: 10/07/18 08:06 Dose: 300 mls/hr Multivitamins/Minerals 10 ml/Chromium/Copper/Manganese/Seleni/Zn 1 ml/ Amino Ac/ Electrol/Dextrose/Calcium 1,011 mls @ 40 mls/hr IV .BY DURATION [facility] Last Admin: 10/04/18 04:56 Dose: 40 mls/hr Amino Ac/Electrol/Dextrose/Calcium (Clinimix E 5/15) 1,000 mls @ 40 mls/hr IV .BY DURATION [facility] Piperacillin/Tazobactam/ (Dextrose 3.375 gm/ Premix) 50 mls @ 100 mls/hr IV Q6H [facility] Last Admin: 10/07/18 04:13 Dose: 100 mls/hr Levofloxacin/Dextrose 750 mg/ (Premix) 150 mls @ 100 mls/hr IV Q24H [facility] Last Admin: 10/08/18 16:08 Dose: 100 mls/hr Potassium Phosphate 22.5 mmole (/ Sodium Chloride) 107.5 mls @ 27 mls/hr IV Q4H [facility] Stop: 10/04/18 17:59 Last Admin: 10/04/18 13:34 Dose: 27 mls/hr Multivitamins/Minerals 10 ml/Chromium/Copper/Manganese/Seleni/Zn 1 ml/ Amino Ac/ Electrol/Dextrose/Calcium 1,011 mls @ 40 mls/hr IV .BY DURATION [facility] Stop: 10/05/18 21:59 Last Admin: 10/05/18 04:44 Dose: 40 mls/hr Amino Ac/Electrol/Dextrose/Calcium (Clinimix E 5/15) 1,000 mls @ 40 mls/hr IV .BY DURATION [facility] Stop: 10/05/18 21:59 Potassium Chloride 20 meq/ (Premix) 100 mls @ 50 mls/hr IV ONETIME ONE Stop: 10/05/18 09:59 Last Admin: 10/05/18 08:01 Dose: 50 mls/hr Potassium Chloride 40 meq/ (Premix) 100 mls @ 25 mls/hr IV ONETIME ONE Stop: 10/05/18 13:59 Last Admin: 10/05/18 10:16 Dose: 25 mls/hr Magnesium Sulfate 2 gm/ Premix 50 mls @ 25 mls/hr IV Q6H [facility] Stop: 10/07/18 05:59 Last Admin: 10/07/18 04:14 Dose: 25 mls/hr Multivitamins/Minerals 10 ml/Chromium/Copper/Manganese/Seleni/Zn 1 ml/ Amino Ac/ Electrol/Dextrose/Calcium 1,011 mls @ 60 mls/hr IV .BY DURATION [facility] Stop: 10/06/18 13:55 Amino Ac/Electrol/Dextrose/Calcium (Clinimix E 5/15) 1,000 mls @ 60 mls/hr IV .BY DURATION [facility] Stop: 10/06/18 13:55 Last Admin: 10/06/18 00:34 Dose: 60 mls/hr Potassium Chloride 40 meq/ (Premix) 100 mls @ 25 mls/hr IV ONETIME ONE Stop: 10/05/18 23:59 Last Admin: 10/05/18 20:05 Dose: 25 mls/hr Potassium Phosphate 20 mmole/ (Sodium Chloride) 106.6667 mls @ 35 mls/hr IV Q3H [facility] Stop: 10/06/18 16:59 Last Admin: 10/06/18 15:19 Dose: 35 mls/hr Multivitamins/Minerals 10 ml/Chromium/Copper/Manganese/Seleni/Zn 1 ml/ Amino Ac/ Electrol/Dextrose/Calcium 1,011 mls @ 60 mls/hr IV .BY DURATION [facility] Stop: 10/10/18 19:00 Last Admin: 02/10/19 15:06 Dose: 60 mls/hr Amino Ac/Electrol/Dextrose/Calcium (Clinimix E 5/15) 1,000 mls @ 60 mls/hr IV .BY DURATION [facility] Stop: 10/10/18 19:00 Last Admin: 10/10/18 08:18 Dose: 60 mls/hr Potassium Phosphate 20 mmole/ (Sodium Chloride) 106.6667 mls @ 36 mls/hr IV Q3H [facility] Stop: 10/07/18 17:58 Last Admin: 10/07/18 14:29 Dose: 36 mls/hr Linezolid 600 mg/ Premix 300 mls @ 300 mls/hr IV Q12H [facility] Last Admin: 10/08/18 22:32 Dose: 300 mls/hr Meropenem 1 gm/ Sodium (Chloride) 100 mls @ 200 mls/hr IV Q8H [facility] Last Admin: 10/09/18 02:33 Dose: 200 mls/hr Sodium Chloride (Normal Saline) 80 mls @ 3.5 mls/sec IV ONETIME ONE Stop: 10/08/18 09:51 Last Admin: 10/08/18 10:43 Dose: 4 mls/sec Meropenem 1 gm/ Sodium (Chloride) 50 mls @ 100 mls/hr IV Q8H [facility] Potassium Chloride 40 meq/ (Premix) 100 mls @ 25 mls/hr IV ONETIME ONE Stop: 10/09/18 13:29 Last Admin: 10/09/18 10:08 Dose: 25 mls/hr Potassium Phosphate 22.5 mmole (/ Sodium Chloride) 107.5 mls @ 26 mls/hr IV Q4H [facility] Stop: 10/10/18 17:29 Last Admin: 10/10/18 14:30 Dose: 26 mls/hr Multivitamins/Minerals 10 ml/Chromium/Copper/Manganese/Seleni/Zn 1 ml/ Amino Ac/ Electrol/Dextrose/Calcium 1,011 mls @ 60 mls/hr IV .BY DURATION [facility] Last Admin: 10/11/18 02:07 Dose: 60 mls/hr Amino Ac/Electrol/Dextrose/Calcium (Clinimix E 5/15) 1,000 mls @ 60 mls/hr IV .BY DURATION [facility] Multivitamins/Minerals 10 ml/Chromium/Copper/Manganese/Seleni/Zn 1 ml/ Amino Acids/Dextrose 2,011 mls @ 82 mls/hr IV .BY DURATION [facility] Last Admin: 10/11/18 08:19 Dose: 82 mls/hr Amino Acids/Dextrose (Clinimix 5/15) 2,000 mls @ 100 mls/hr IV .BY DURATION [facility] Fat Emulsion Intravenous (Intralipid 20%) 100 mls @ 8.3 mls/hr IV ONETIME ONE Stop: 10/12/18 04:02 Last Admin: 10/11/18 15:15 Dose: 8.3 mls/hr Levetiracetam 500 mg/ Sodium (Chloride) 105 mls @ 400 mls/hr IV Q12H [facility] Stop: 10/12/18 14:00 Last Admin: 10/12/18 11:14 Dose: 400 mls/hr Multivitamins/Minerals 10 ml/Chromium/Copper/Manganese/Seleni/Zn 1 ml/ Amino Acids/Dextrose 2,011 mls @ 82 mls/hr IV .BY DURATION [facility] Last Admin: 10/16/18 09:46 Dose: 82 mls/hr Amino Acids/Dextrose (Clinimix 5/15) 2,000 mls @ 82 mls/hr IV .BY DURATION [facility] Potassium Phosphate 20 mmole/ (Dextrose/Water) 106.6667 mls @ 35 mls/hr IV Q3H [facility] Stop: 10/12/18 17:59 Last Admin: 10/12/18 16:36 Dose: 35 mls/hr Potassium Phosphate 15 mmole/ (Dextrose/Water) 105 mls @ 35 mls/hr IV Q3H [facility] Stop: 10/13/18 16:59 Last Admin: 10/13/18 14:24 Dose: 35 mls/hr Iopamidol (Isovue-370 (76%)) 52 ml IV . DIRECTED [facility] Stop: 10/08/18 11:00 Last Admin: 10/08/18 10:44 Dose: 52 ml Lidocaine HCl (Xylocaine 2% Jelly) 10 ml MUCMEM ONETIME ONE Stop: 10/01/18 21:56 Last Admin: 10/01/18 22:04 Dose: 10 ml Lidocaine HCl (Xylocaine 2% Jelly) 10 ml MUCMEM ONETIME ONE Stop: 10/07/18 11:31 Last Admin: 10/07/18 13:49 Dose: 10 ml Lidocaine/Epinephrine (Xylocaine 1% With Epinephrine 1:100,000) Confirm Administered Dose 50 ml .ROUTE .K-MED ONE Stop: 09/27/18 07:26 Last Admin: 09/27/18 09:40 Dose: 7 ml Loperamide HCl (Imodium) 2 mg PO QID ELYSE Last Admin: 10/02/18 05:13 Dose: 2 mg Loperamide HCl (Imodium) 2 mg PO QID PRN PRN Reason: DIARRHEA Last Admin: 10/15/18 08:38 Dose: 2 mg Lorazepam (Ativan) 0.5 mg IVPUSH Q4H PRN PRN Reason: Anxiety Last Admin: 10/07/18 04:13 Dose: 0.5 mg Melatonin (Melatonin) 9 mg PO BEDTIME [facility] Last Admin: 10/09/18 21:33 Dose: Not Given Midazolam HCl (Versed 1 Mg/Ml) Confirm Administered Dose 2 mg .ROUTE .[facility]-MED ONE Stop: 09/27/18 07:08 Non-Formulary Medication (Total Parenteral Nutrition, Central) 1,000 ml .XX .Continue Order [facility] Stop: 09/29/18 12:00 Non-Formulary Medication (Total Parenteral Nutrition, Central) 1,000 ml .XX .Continue Order [facility] Stop: 09/30/18 09:00 Non-Formulary Medication (Total Parenteral Nutrition, Central) 1,000 ml .XX .Continue Order [facility], [facility] Stop: 10/15/18 10:00 Non-Formulary Medication (Total Parenteral Nutrition, Central) 1,000 ml .XX .Continue Order [facility] Stop: 10/16/18 12:00 Pantoprazole Sodium (Protonix Iv) 40 mg IV Q24H [facility] Last Admin: 09/29/18 14:31 Dose: 40 mg Polyethylene Glycol (Miralax) 238 gm PO ONETIME ONE Stop: 09/26/18 17:01 Last Admin: 09/26/18 16:54 Dose: 238 gram Potassium Chloride (Klor-Con M20) 40 meq PO ONETIME ONE Stop: 10/06/18 10:01 Last Admin: 10/06/18 09:55 Dose: 40 meq Potassium Chloride (Klor-Con M20) 40 meq PO ONETIME ONE Stop: 10/06/18 17:46 Last Admin: 10/06/18 21:46 Dose: Not Given Potassium Chloride (Klor-Con M20) 40 meq PO ONETIME ONE Stop: 10/06/18 21:01 Last Admin: 10/06/18 21:46 Dose: 40 meq Potassium Chloride (Klor-Con M20) 40 meq PO ONETIME ONE Stop: 10/07/18 08:46 Last Admin: 10/07/18 09:00 Dose: 40 meq Potassium Chloride (Klor-Con M20) 40 meq PO ONETIME ONE Stop: 10/07/18 12:01 Last Admin: 10/07/18 11:48 Dose: 40 meq Potassium Chloride (Klor-Con M20) 40 meq PO ONETIME ONE Stop: 10/09/18 09:01 Last Admin: 10/09/18 09:07 Dose: 40 meq Potassium Chloride (Klor-Con M20) 40 meq PO ONETIME ONE Stop: 10/09/18 12:01 Last Admin: 10/09/18 12:54 Dose: 40 meq Potassium Chloride (Klor-Con M20) 40 meq PO ONETIME ONE Stop: 10/09/18 17:01 Last Admin: 10/09/18 19:34 Dose: Not Given Propofol (Diprivan 20 Ml) Confirm Administered Dose 200 mg .ROUTE .STK-MED ONE Stop: 09/27/18 07:07 Propofol (Diprivan 20 Ml) Confirm Administered Dose 200 mg .ROUTE .STK-MED ONE Stop: 09/27/18 09:05 Sodium Chloride (Saline Flush) 10 ml FLUSH ONETIME ONE Stop: 10/08/18 09:51 Last Admin: 10/08/18 10:44 Dose: 10 ml Tramadol HCl (Ultram) 50 mg PO Q4H PRN PRN Reason: Pain Last Admin: 09/27/18 15:17 Dose: 50 mg - Exam Quality Assessment: Central Line/PICC, DVT Prophylaxis. No: Urine Catheter General: Alert, Oriented, Cooperative, Mild Distress Lungs: Clear to Auscultation, Normal Respiratory Effort Cardiovascular: Regular Rate, Regular Rhythm, No Murmurs GI/Abdominal Exam: Soft, Non-Tender, No Organomegaly, No Distention Extremities: Non-Tender, No Pedal Edema - Problem List Review Problem List Initiated/Reviewed/Updated: Yes - My Orders Last 24 Hours: My Active Orders 10/17/18 09:58 Atropine/Diphenoxylate [Lomotil 0.025-2.5 MG] 1 tab PO Q6H PRN 10/17/18 10:05 Atropine/Diphenoxylate [Lomotil 0.025-2.5 MG] 1 tab PO BID - Plan Plan:: ASSESSMENT AND PLAN - ARDS/Acute respiratory failure with hypoxia - respiratory status stable, currently on room air -Furosemide 40 mg IV today -Supplement oxygen as needed -minimize fluid intake beyond TPN -goal level for transfusion of a hemoglobin less than 8 Orthostatic hypotension-blood pressures intermittently low with standing and sitting -High sodium diet -Head of bed elevated at 45 at all times -Thigh high support hose -Consider addition of medical therapy Acute left parietal stroke - minimal residual symptoms -Continue aspirin, and clopidogrel -Continue statin -Occupational therapy Probable seizure - episode of rigidity and unresponsiveness 10/11. Tolerated initiation of Keppra and has not had a recurrent episode. -Continue Keppra, transitioned to oral Urinary retention-catheter successfully removed yesterday -Flomax 0.4 mg by mouth daily -Proscar 5 mg by mouth daily Hypoactive Delirium with mild agitation - no evidence for infection. I suspect this is related to his CVA and he has done well for the past 2 days. -Melatonin 9 mg by mouth daily at bedtime Pancytopenia - white blood cell count and platelets are now within normal range , likely nutritional. Persistent anemia likely chronic related to underlying health problems.
--- NOTE | 2018-10-17 10:46 | PN ---
DATE OF SERVICE: 10/17/2018 SUBJECTIVE: Shun states he is feeling better. He continues with his TPN. Labs were reviewed today. He did eat 50% of breakfast, 100% of lunch, and 50-75% of supper. There is no oral intake reported on chart. Vital signs have been stable. He has been up ambulating. He feels like his strength is improving a little bit. REVIEW OF SYSTEMS: HEENT: Negative. NECK: Negative. CHEST: No chest pain, shortness of breath, or fast or irregular heart beat. LUNGS: Little bit shortness of breath when up moving around. ABDOMEN: He had 3 stools that were recorded and he states that they are getting a little bit more firm. EXTREMITIES: Trace peripheral edema remains. OBJECTIVE: GENERAL: Shun Griffith is a 58-year-old male. He is alert, orientated. VITAL SIGNS: TPR in , 66, and 18; blood pressure 93/57. HEENT: Negative. NECK: Supple. HEART: Regular rate and rhythm. LUNGS: Clear. ABDOMEN: Negative. EXTREMITIES: Trace peripheral edema. ASSESSMENT: 1. Malnutrition. 2. Hypothyroidism. 3. Total parenteral nutrition therapy. 4. SP duodenal switch. 5. Unspecified surgical malabsorption. 6. B12 deficiency. 7. Orthostatic hypotension. PLAN: 1. Decrease TPN to 40 mL per hour, same content. 2. Accurate intake and output. 3. Magnesium 2 g IV q.72 hours. Check CBC, CMP, magnesium, phos, and TSH in a.m. 4. Dietary consult in regard to replacing soda with protein water. 5. We will evaluate p.r.n. or in a.m. Kelly Parham PA-C /[id number]
[2018-10-17] MEDS: Atropine/Diphenoxylate 0.025-2.5 MG Tab PO SCH ×2 (11:34→21:38)
[2018-10-17] MEDS ORDERED: Sodium Chloride 0.9% 500 ML IV ONE (12:53)
--- NOTE | 2018-10-17 13:59 | PN ---
DATE OF SERVICE: 10/13/2018 The patient is normothermic, heart rates in the 80s, last blood pressure 144/77, and O2 saturations are in the mid 90s, and respiratory status appears to remain quite good at this point. The MRI of the head did show multiple areas of recent infarcts in the left posterior parietal region. Further workup on this would be undertaken per Dr. Merino. Otherwise, oral intake was a little bit better at 480 mL, and he is alert and relatively quiet night. Labs show hemoglobin down somewhat at 8.9. We will give him 1 unit of packed RBCs. Today, H and H seem to be better on the weekend when that is given. He continues to be pancytopenic with platelet count of 143, creeping somewhat up; white count is 3.9. Otherwise, chemistries show an improvement in sodium at 151 as well as a decrease in the chloride at 112, and phosphate is 2.9. We will give him some K-Phos today. Bilirubin has also come down to 1.1. Rechecked a TSH yesterday, and it is 4.8, it is gradually coming down from 5.78 on 10/10/2018. Overall, there is a gradual improvement. We will have physical therapy see the patient daily and transfuse 1 unit of packed RBCs today. Continue the TPN and have Dietary see the patient regarding encouraging increased oral intake. Manfred Nicolas MD /[id number]
[2018-10-17] MEDS: Fat Emulsion 100 ML IV SCH (17:16)
[2018-10-17] MEDS: Melatonin 3 MG Tab PO SCH (21:32)
[2018-10-17] MEDS: atorvaSTATin 20 MG Tab PO SCH (21:32)
[2018-10-18] MEDS: Magnesium Sulfate/Water 2 GM in Premix Bag 1 BAG IV SCH ×4 (02:40→20:20)
[2018-10-18] MEDS: Albuterol/Ipratropium 3.0-0.5 MG/3 ML Neb Soln NEB SCH ×4 (07:10→20:16)
[2018-10-18] MEDS: Levothyroxine 100 MCG Tab PO SCH (07:37)
[2018-10-18] MEDS: Pantoprazole 40 MG Tab.CR PO SCH (07:38)
--- NOTE | 2018-10-18 07:45 | PN ---
DATE OF SERVICE: 10/12/2018 The patient has been clinically stable. He remains relatively non-cooperative and taking little in the way of oral intake. MRI is planned today to further clarify his [facility] status with regard to probable recent stroke. The patient's hypernatremia is a little bit higher once again, but the TPN was switched over to having zero sodium in it, and I will expect this coming down today. His potassium and phosphate are marginally low. These will be supplemented with some D5 water today. Otherwise, continue the supportive care per Dr. Merino. The patient's pulmonary status at this point appears to be fairly good. Manfred Nicolas MD /[id number]
[2018-10-18] MEDS ORDERED: Levothyroxine 25 MCG Tab PO ONE (08:00)
[2018-10-18] MEDS: Tamsulosin 0.4 MG Cap.ER PO SCH (09:28)
[2018-10-18] MEDS: Lactobacillus Rhamnosus GG (Probiotic) Cap PO SCH ×2 (09:28→20:22)
[2018-10-18] MEDS: Loratadine 10 MG Tab.DIS PO SCH (09:28)
[2018-10-18] MEDS: Clopidogrel 75 MG Tab PO SCH (09:29)
[2018-10-18] MEDS: Finasteride 5 MG Tab PO SCH (09:29)
[2018-10-18] MEDS: Aspirin 81 MG Tab.EC PO SCH (09:29)
[2018-10-18] MEDS: levETIRAcetam 250 MG Tab PO SCH ×2 (09:29→20:24)
[2018-10-18] MEDS: Fluticasone Propionate Nasal Spray 16 GM Bottle NASBOTH SCH (09:30)
[2018-10-18] MEDS: Atropine/Diphenoxylate 0.025-2.5 MG Tab PO SCH ×2 (09:33→20:24)
[2018-10-18] MEDS ORDERED: DEXTROSE 15% IV SCH ×6 (09:45→10:00)
[2018-10-18] MEDS ORDERED: CHROMIUM IV SCH ×6 (09:45→10:00)
[2018-10-18] MEDS ORDERED: VITAMIN K IV SCH ×6 (09:45→10:00)
[2018-10-18] MEDS ORDERED: AMINO ACIDS IV SCH ×6 (09:45→10:00)
[2018-10-18] MEDS ORDERED: [UNRECOGNIZED DRUG - OTHER] IV SCH ×6 (09:45→10:00)
[2018-10-18] MEDS ORDERED: MVI IV SCH ×6 (09:45→10:00)
--- NOTE | 2018-10-18 14:09 | PN ---
DATE OF SERVICE: 10/18/2018 The patient has been normothermic with stable vital signs. Does reportedly gets a little bit dizzy when he is sitting up, and he is encouraged to maximize the amount of time that he is up in the chair as well as standing and walking over the next few days. Otherwise, oral intake from trial standpoint was quite good yesterday at around 900 mL of liquids in. We will, therefore, continue the TPN at 40 mL an hour rate. We are still playing catch-up nutritionally, and he will need to be given more than baseline calories for a period of time here. Bowel movement included 4 episodes that nursing and patient both reported were loose, but semiformed. The labs does show white count of 6000 and stable, hemoglobin of 9.6. Electrolytes continued to look improved. The TSH was rechecked today and it was 5.4. This went down only slightly from last week, and I think we will bump up his Synthroid dose to 125 mcg a day at this point as well. Over the next few days, we will need to consider getting the patient to a rehab facility. It would be nice to have this in a location where he can get some nighttime TPN, perhaps a liter a day, as well as lipids while the rehab process is ongoing. Manfred Nicolas MD /[id number]
--- NOTE | 2018-10-18 15:16 | PCM.PN ---
- General Info Date of Service: 10/18/18 Subjective Update: Mr. Griffith continues to experience symptoms of lightheadedness when sitting and standing, he has documented orthostatic hypotension. Conservative measures have been in place over the past few days including keeping the head of the bed elevated 45, liberalized sodium diet, and thigh high support hose. He appears to be adequately diuresed at this point and diuretic therapy may have been contributing to his orthostatic hypotension. We discussed medical therapy including Pauline, he would like to hold on further medications at the present time and see how he does over the next few days. Vital signs have otherwise been stable and he has remained afebrile. - Review of Systems General: Reports: Weakness, Fatigue. Denies: Fever, Chills Pulmonary: Reports: No Symptoms Cardiovascular: Reports: Lightheadedness. Denies: Chest Pain, Palpitations, Dyspnea on Exertion, Orthopnea, PND, Edema Gastrointestinal: Reports: No Symptoms Musculoskeletal: Reports: No Symptoms - Patient Data Vitals - Most Recent: Last Vital Signs Temp 95.6 F 10/18/18 14:03 Pulse 62 10/18/18 14:03 Resp 16 10/18/18 14:03 BP 88/55 L 10/18/18 14:03 Pulse Ox 100 10/18/18 14:03 Weight - Most Recent: 99 lb 3.2 oz I&O - Last 24 Hours: Intake & Output 10/18/18 10/18/18 10/18/18 06:59 14:59 22:59 Intake Total 422 60 Output Total 250 200 Balance 172 -140 Lab Results Last 24 Hours: Laboratory Results - last 24 hr 10/18/18 10/18/18 Range/Units 04:29 04:29 WBC 6.0 (4.5-11.0) K/uL RBC 3.25 L (4.30-5.90) M/uL Hgb 9.6 L (12.0-15.0) g/dL Hct 30.0 L (40.0-54.0) % MCV 92 (80-98) fL MCH 30 (27-31) pg MCHC 32 (32-36) % Plt Count 203 (150-400) K/uL Sodium 138 L (140-148) mmol/L Potassium 4.8 (3.6-5.2) mmol/L Chloride 107 (100-108) mmol/L Carbon Dioxide 26 (21-32) mmol/L Anion Gap 9.8 (5.0-14.0) mmol/L BUN 35 H (7-18) mg/dL Creatinine 0.6 L (0.8-1.3) mg/dL Est Cr Clr Drug Dosing 85.41 mL/min Estimated GFR (MDRD) > 60 (>60) Glucose 140 H (74-106) mg/dL Calcium 8.3 L (8.5-10.1) mg/dL Phosphorus 3.6 (2.5-4.9) mg/dL Total Bilirubin 0.6 (0.2-1.0) mg/dL AST 63 H (15-37) U/L ALT 122 H (12-78) U/L Alkaline Phosphatase 235 H (46-116) U/L NT-Pro-B Natriuret Pep 68 (5-125) pg/mL Total Protein 5.0 L (6.4-8.2) g/dL Albumin 1.9 L (3.4-5.0) g/dL Globulin 3.1 (2.3-3.5) g/dL Albumin/Globulin Ratio 0.6 L (1.2-2.2) TSH, Ultra Sensitive 5.424 H (0.358-3.740) uIU/mL Med Orders - Current: Current Medications Acetaminophen (Tylenol) 650 mg PO Q4H PRN PRN Reason: ANALGESIA/FEVER Last Admin: 10/17/18 08:43 Dose: 650 mg Acetaminophen (Tylenol) 650 mg RECTAL Q4H PRN PRN Reason: ANALGESIA/FEVER Albuterol (Proventil Neb Soln) 2.5 mg NEB Q2H PRN PRN Reason: Shortness of Breath Last Admin: 10/10/18 00:10 Dose: 2.5 mg Albuterol/Ipratropium (Duoneb 3.0-0.5 Mg/3 Ml) [address] [facility] Last Admin: 10/18/18 14:30 Dose: 3 ml Aspirin (Halfprin) [address] [facility] Last Admin: 10/18/18 09:29 Dose: 81 mg Atorvastatin Calcium (Lipitor) [address] [facility] Last Admin: 10/17/18 21:32 Dose: 20 mg Benzocaine/Menthol (Cepacol Sore Throat) 1 lozenge MUCMEM 6XDAY PRN PRN Reason: Sore Throat Last Admin: 09/27/18 15:32 Dose: 1 john Clopidogrel Bisulfate (Plavix) [address] [facility] Last Admin: 10/18/18 09:29 Dose: 75 mg Diphenoxylate HCl/Atropine (Lomotil 0.025-2.5 Mg) [address] [facility] Last Admin: 10/18/18 09:33 Dose: 1 tab Diphenoxylate HCl/Atropine (Lomotil 0.025-2.5 Mg) 1 tab PO Q6H PRN PRN Reason: Diarrhea Last Admin: 10/17/18 18:30 Dose: 1 tab Finasteride (Proscar) [address] [facility] Last Admin: 10/18/18 09:29 Dose: 5 mg Fluticasone Propionate (Flonase) [address] 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 Last Admin: 10/17/18 17:16 Dose: 8.3 mls/hr Magnesium Sulfate 2 gm/ Premix 50 mls @ 25 mls/hr IV Q6H [facility] Stop: 10/20/18 03:59 Last Admin: 10/18/18 13:27 Dose: 25 mls/hr Multivitamins/Minerals 10 ml/Chromium/Copper/Manganese/Seleni/Zn 1 ml/ Amino Acids/Dextrose 1,011 mls @ 40 mls/hr IV .BY DURATION [facility] Last Admin: 10/18/18 11:29 Dose: 40 mls/hr Amino Acids/Dextrose (Clinimix 5/15) 1,000 mls @ 40 mls/hr IV .BY DURATION [facility] Lactobacillus Rhamnosus (Culturelle) [address] [facility] Last Admin: 10/18/18 09:28 Dose: 1 cap Levetiracetam (Keppra) [address] [facility] Last Admin: 10/18/18 09:29 Dose: 500 mg Levothyroxine Sodium 100 mcg/ (Levothyroxine Sodium 25 mcg) 125 mcg PO DAILY@ 0730 [facility] Loratadine (Claritin Reditabs) [address] [facility] Last Admin: 10/18/18 09:28 Dose: 10 mg Melatonin (Melatonin) [address] [facility] Last Admin: 10/17/18 21:32 Dose: 9 mg Morphine Sulfate (Morphine) 4 mg IVPUSH Q2H PRN PRN Reason: air hunger/chest tightness Pantoprazole Sodium (Protonix) [address] 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 Last Admin: 10/18/18 09:28 Dose: 0.4 mg Discontinued Medications Acetazolamide (Diamox) [address] [facility] Stop: 10/05/18 22:01 Last Admin: 10/05/18 22:12 Dose: 250 mg Acetazolamide (Diamox) [address] [facility] Stop: 10/06/18 22:01 Last Admin: 10/06/18 21:46 Dose: 250 mg Albuterol/Ipratropium (Duoneb 3.0-0.5 Mg/3 Ml) [address] [facility] Last Admin: 09/29/18 19:53 Dose: 3 ml Albuterol/Ipratropium (Duoneb 3.0-0.5 Mg/3 Ml) 3 ml NEB Q2H PRN PRN Reason: shortness of breath Last Admin: 10/01/18 17:31 Dose: 3 ml Bupivacaine HCl (Marcaine 0.5%) Confirm Administered Dose 50 ml .ROUTE .STK-MED ONE Stop: 09/27/18 07:25 Last Admin: 09/27/18 09:39 Dose: 7 ml Clopidogrel Bisulfate (Plavix) 75 mg PO ONETIME ONE Stop: 10/10/18 15:13 Last Admin: 10/10/18 15:58 Dose: 75 mg Diphenoxylate HCl/Atropine (Lomotil 0.025-2.5 Mg) 1 tab PO QID PRN PRN Reason: Diarrhea Last Admin: 10/15/18 20:53 Dose: 1 tab Divalproex Sodium (Divalproex Sodium) 250 mg PO BIDMEALS [facility] Last Admin: 10/08/18 09:11 Dose: 250 mg Fentanyl (Sublimaze) Confirm Administered Dose 100 mcg .ROUTE .STK-MED ONE Stop: 09/27/18 07:07 Furosemide (Lasix) 20 mg PO BIDDIURETIC [facility] Last Admin: 09/27/18 15:03 Dose: Not Given Furosemide (Lasix) 20 mg IV ONETIME ONE Stop: 09/27/18 16:01 Last Admin: 09/27/18 15:08 Dose: 20 mg Furosemide (Lasix) 40 mg IVPUSH ONETIME ONE Stop: 09/29/18 22:46 Last Admin: 09/29/18 23:04 Dose: 40 mg Furosemide (Lasix) 40 mg IVPUSH ONETIME ONE Stop: 09/30/18 08:11 Last Admin: 09/30/18 08:03 Dose: 40 mg Furosemide (Lasix) 20 mg PO BIDDIURETIC [facility] Last Admin: 10/02/18 10:25 Dose: Not Given Furosemide (Lasix) 20 mg IV ONETIME ONE Stop: 10/01/18 10:01 Last Admin: 10/01/18 09:36 Dose: 20 mg Furosemide (Lasix) 20 mg IVPUSH ONETIME ONE Stop: 10/01/18 18:28 Last Admin: 10/01/18 18:34 Dose: 20 mg Furosemide (Lasix) 40 mg IVPUSH ONETIME ONE Stop: 10/01/18 21:45 Last Admin: 10/01/18 22:21 Dose: 40 mg Furosemide (Lasix) 40 mg IVPUSH ONETIME ONE Stop: 10/02/18 05:01 Last Admin: 10/02/18 05:13 Dose: 40 mg Furosemide 20 mg/ Furosemide (40 mg) 60 mg IV Q8H [facility] Last Admin: 10/03/18 09:11 Dose: 60 mg Furosemide (Lasix) [address] [facility] Last Admin: 10/05/18 04:02 Dose: 40 mg Furosemide (Lasix) [address] [facility] Last Admin: 10/06/18 09:37 Dose: 40 mg Furosemide (Lasix) [address] [facility] Furosemide (Lasix) 20 mg IVPUSH NOW ONE Stop: 10/08/18 10:10 Last Admin: 10/08/18 10:40 Dose: 20 mg Furosemide (Lasix) [address] [facility] Last Admin: 10/11/18 03:33 Dose: 40 mg Furosemide (Lasix) 20 mg IVPUSH ONETIME ONE Stop: 10/13/18 11:01 Furosemide (Lasix) 40 mg IVPUSH ONETIME ONE Stop: 10/13/18 19:01 Last Admin: 10/13/18 18:27 Dose: 40 mg Furosemide (Lasix) 40 mg IVPUSH ONETIME ONE Stop: 10/13/18 11:01 Last Admin: 10/13/18 10:15 Dose: 40 mg Furosemide (Lasix) 20 mg IVPUSH NOW ONE Stop: 10/14/18 10:31 Last Admin: 10/14/18 10:20 Dose: 20 mg Furosemide (Lasix) 40 mg IVPUSH NOW ONE Stop: 10/15/18 11:01 Last Admin: 10/15/18 11:34 Dose: 40 mg Furosemide (Lasix) 40 mg IVPUSH NOW ONE Stop: 10/17/18 10:16 Last Admin: 10/17/18 10:17 Dose: 40 mg Haloperidol Lactate (Haldol) 1 mg IVPUSH Q2H PRN PRN Reason: Agitation Heparin Sodium (Porcine) (Heparin Lock Flush 100 Units/Ml) Confirm Administered Dose 1,500 units .ROUTE .STK-MED ONE Stop: 09/27/18 07:26 Last Admin: 09/27/18 09:39 Dose: 1,500 units Dextrose/Lactated Ringer's (Dextrose 5%-Lactated Ringers) 1,000 mls @ 100 mls/ hr IV ASDIRECTED [facility] Stop: 09/26/18 20:59 Last Admin: 09/26/18 12:03 Dose: 100 mls/hr Albumin Human (Albumin 25%) 25 gm in 100 mls @ 25 mls/hr IV ONETIME ONE Stop: 09/26/18 20:59 Last Admin: 09/26/18 16:54 Dose: 25 mls/hr Multivitamins/Minerals 10 ml/Chromium/Copper/Manganese/Zinc 1 ml/ Thiamine HCl 100 mg/Dextrose/Lactated Ringer's 1,012 mls @ 100 mls/hr IV .Q10H8M [facility] Stop: 09/27/18 13:59 Last Admin: 09/27/18 11:43 Dose: 100 mls/hr Levofloxacin/Dextrose 500 mg/ (Premix) 100 mls @ 100 mls/hr IV ONETIME ONE Stop: 09/27/18 09:29 Last Admin: 09/27/18 20:47 Dose: Not Given Clindamycin Phosphate 900 mg/ (Sodium Chloride) 106 mls @ 212 mls/hr IV ONETIME ONE Stop: 09/27/18 09:59 Last Admin: 09/27/18 20:47 Dose: Not Given Lactated Ringer's (Ringers, Lactated) Confirm Administered Dose 1,000 mls @ as directed .ROUTE .STK-MED ONE Stop: 09/27/18 09:48 Albumin Human (Albumin 25%) 25 gm in 100 mls @ 25 mls/hr IV Q24H [facility] Stop: 09/30/18 15:59 Last Admin: 09/30/18 12:10 Dose: 25 mls/hr Multivitamins/Minerals 10 ml/Chromium/Copper/Manganese/Seleni/Zn 1 ml/ Amino Ac/ Electrol/Dextrose/Calcium 1,011 mls @ 80 mls/hr IV .BY DURATION [facility] Stop: 09/28/18 14:59 Last Admin: 09/27/18 14:31 Dose: 80 mls/hr Amino Ac/Electrol/Dextrose/Calcium (Clinimix E 5/15) 1,000 mls @ 80 mls/hr IV .BY DURATION [facility] Stop: 09/28/18 14:59 Last Admin: 09/28/18 03:13 Dose: 80 mls/hr Fat Emulsion Intravenous (Intralipid 20%) 100 mls @ 8.3 mls/hr IV ONETIME ONE Stop: 09/28/18 04:02 Last Admin: 09/27/18 16:30 Dose: 8.3 mls/hr Sodium Chloride (Normal Saline) 1,000 mls @ 0 mls/hr IV ASDIRECTED [facility] Stop: 09/28/18 11:59 Last Admin: 09/27/18 16:36 Dose: 25 mls/hr Acetaminophen 1,000 mg/ Premix 100 mls @ 400 mls/hr IV NOW ONE Stop: 09/27/18 13:14 Last Admin: 09/27/18 12:56 Dose: 400 mls/hr Levofloxacin/Dextrose 500 mg/ (Premix) 100 mls @ 100 mls/hr IV Q24H [facility] Last Admin: 09/28/18 07:28 Dose: 100 mls/hr Clindamycin Phosphate 900 mg/ (Sodium Chloride) 106 mls @ 212 mls/hr IV Q12H [facility] Last Admin: 09/28/18 21:42 Dose: 212 mls/hr Dextrose/Sodium Chloride (Dextrose 5%-1/2 Ns) 1,000 mls @ 0 mls/hr IV ASDIRECTED [facility] Last Admin: 10/01/18 15:04 Dose: 25 mls/hr Magnesium Sulfate 2 gm/ Premix 50 mls @ 25 mls/hr IV Q6H [facility] Stop: 10/01/18 05:59 Last Admin: 10/01/18 03:28 Dose: 25 mls/hr Albumin Human (Albumin 25%) 25 gm in 100 mls @ 25 mls/hr IV Q24H [facility] Stop: 09/30/18 19:59 Last Admin: 09/30/18 16:39 Dose: 25 mls/hr Multivitamins/Minerals 10 ml/Chromium/Copper/Manganese/Seleni/Zn 1 ml/ Amino Ac/ Electrol/Dextrose/Calcium 1,011 mls @ 80 mls/hr IV .BY DURATION [facility] Stop: 09/30/18 17:15 Last Admin: 09/29/18 16:05 Dose: 80 mls/hr Amino Ac/Electrol/Dextrose/Calcium (Clinimix E 5/15) 1,000 mls @ 80 mls/hr IV .BY DURATION [facility] Stop: 09/30/18 17:15 Last Admin: 09/30/18 05:54 Dose: 80 mls/hr Fat Emulsion Intravenous (Intralipid 20%) 100 mls @ 9 mls/hr IV ONETIME ONE Stop: 09/29/18 05:06 Last Admin: 09/28/18 17:39 Dose: 9 mls/hr Potassium Phosphate 15 mmole/ (Sodium Chloride) 105 mls @ 50 mls/hr IV Q2H [facility] Stop: 09/30/18 15:59 Last Admin: 09/30/18 14:32 Dose: 50 mls/hr Multivitamins/Minerals 10 ml/Chromium/Copper/Manganese/Seleni/Zn 1 ml/ Amino Ac/ Electrol/Dextrose/Calcium 1,011 mls @ 60 mls/hr IV .BY DURATION [facility] Stop: 10/02/18 20:00 Last Infusion: 10/02/18 09:00 Dose: 40 mls/hr Amino Ac/Electrol/Dextrose/Calcium (Clinimix E /15) 1,000 mls @ 60 mls/hr IV .BY DURATION [facility] Stop: 10/02/18 20:00 Last Admin: 10/01/18 13:24 Dose: 60 mls/hr Albumin Human (Albumin 25%) 25 gm in 100 mls @ 25 mls/hr IV Q24H [facility] Stop: 10/03/18 15:59 Last Admin: 10/01/18 12:18 Dose: 25 mls/hr Albumin Human (Albumin 25%) 25 gm in 100 mls @ 25 mls/hr IV Q24H [facility] Stop: 10/03/18 19:59 Last Admin: 10/01/18 16:38 Dose: 25 mls/hr Fat Emulsion Intravenous (Intralipid 20%) 250 mls @ 21 mls/hr IV ONETIME ONE Stop: 10/02/18 05:54 Last Admin: 10/01/18 17:31 Dose: 21 mls/hr Fat Emulsion Intravenous (Intralipid 20%) 250 mls @ 21 mls/hr IV Q24H [facility] Potassium Chloride 20 meq/Lidocaine HCl 2 ml/ Sodium Chloride 112 mls @ 50 mls/ hr IV Q2H [facility] Stop: 10/02/18 07:29 Last Admin: 10/02/18 06:32 Dose: Not Given Potassium Chloride 40 meq/ (Premix) 100 mls @ 25 mls/hr IV ONETIME ONE Stop: 10/02/18 07:30 Last Admin: 10/02/18 03:50 Dose: 25 mls/hr Potassium Chloride (Kcl 40 Meq In Water 100 Ml) Confirm Administered Dose 100 mls @ as directed .ROUTE .STK-MED ONE Stop: 10/02/18 03:50 Last Admin: 10/02/18 04:03 Dose: Not Given Potassium Phosphate 22.5 mmole (/ Sodium Chloride) 107.5 mls @ 26 mls/hr IV Q4H [facility] Stop: 10/02/18 18:29 Last Admin: 10/02/18 14:34 Dose: 26 mls/hr Multivitamins/Minerals 10 ml/Chromium/Copper/Manganese/Seleni/Zn 1 ml/ Amino Ac/ Electrol/Dextrose/Calcium 1,011 mls @ 40 mls/hr IV .BY DURATION [facility] Stop: 10/03/18 23:30 Last Admin: 10/03/18 05:34 Dose: 40 mls/hr Amino Ac/Electrol/Dextrose/Calcium (Clinimix E 5/15) 1,000 mls @ 40 mls/hr IV .BY DURATION [facility] Stop: 10/03/18 23:30 Potassium Chloride 40 meq/ (Premix) 100 mls @ 25 mls/hr IV ONETIME ONE Stop: 10/03/18 12:59 Last Admin: 10/03/18 08:20 Dose: 25 mls/hr Linezolid 600 mg/ Premix 300 mls @ 300 mls/hr IV Q12H [facility] Last Admin: 10/07/18 08:06 Dose: 300 mls/hr Multivitamins/Minerals 10 ml/Chromium/Copper/Manganese/Seleni/Zn 1 ml/ Amino Ac/ Electrol/Dextrose/Calcium 1,011 mls @ 40 mls/hr IV .BY DURATION [facility] Last Admin: 10/04/18 04:56 Dose: 40 mls/hr Amino Ac/Electrol/Dextrose/Calcium (Clinimix E 5/15) 1,000 mls @ 40 mls/hr IV .BY DURATION [facility] Piperacillin/Tazobactam/ (Dextrose 3.375 gm/ Premix) 50 mls @ 100 mls/hr IV Q6H [facility] Last Admin: 10/07/18 04:13 Dose: 100 mls/hr Levofloxacin/Dextrose 750 mg/ (Premix) 150 mls @ 100 mls/hr IV Q24H [facility] Last Admin: 10/08/18 16:08 Dose: 100 mls/hr Potassium Phosphate 22.5 mmole (/ Sodium Chloride) 107.5 mls @ 27 mls/hr IV Q4H [facility] Stop: 10/04/18 17:59 Last Admin: 10/04/18 13:34 Dose: 27 mls/hr Multivitamins/Minerals 10 ml/Chromium/Copper/Manganese/Seleni/Zn 1 ml/ Amino Ac/ Electrol/Dextrose/Calcium 1,011 mls @ 40 mls/hr IV .BY DURATION [facility] Stop: 10/05/18 21:59 Last Admin: 10/05/18 04:44 Dose: 40 mls/hr Amino Ac/Electrol/Dextrose/Calcium (Clinimix E 5/15) 1,000 mls @ 40 mls/hr IV .BY DURATION [facility] Stop: 10/05/18 21:59 Potassium Chloride 20 meq/ (Premix) 100 mls @ 50 mls/hr IV ONETIME ONE Stop: 10/05/18 09:59 Last Admin: 10/05/18 08:01 Dose: 50 mls/hr Potassium Chloride 40 meq/ (Premix) 100 mls @ 25 mls/hr IV ONETIME ONE Stop: 10/05/18 13:59 Last Admin: 10/05/18 10:16 Dose: 25 mls/hr Magnesium Sulfate 2 gm/ Premix 50 mls @ 25 mls/hr IV Q6H [facility] Stop: 10/07/18 05:59 Last Admin: 10/07/18 04:14 Dose: 25 mls/hr Multivitamins/Minerals 10 ml/Chromium/Copper/Manganese/Seleni/Zn 1 ml/ Amino Ac/ Electrol/Dextrose/Calcium 1,011 mls @ 60 mls/hr IV .BY DURATION [facility] Stop: 10/06/18 13:55 Amino Ac/Electrol/Dextrose/Calcium (Clinimix E 5/15) 1,000 mls @ 60 mls/hr IV .BY DURATION [facility] Stop: 10/06/18 13:55 Last Admin: 10/06/18 00:34 Dose: 60 mls/hr Potassium Chloride 40 meq/ (Premix) 100 mls @ 25 mls/hr IV ONETIME ONE Stop: 10/05/18 23:59 Last Admin: 10/05/18 20:05 Dose: 25 mls/hr Potassium Phosphate 20 mmole/ (Sodium Chloride) 106.6667 mls @ 35 mls/hr IV Q3H [facility] Stop: 10/06/18 16:59 Last Admin: 10/06/18 15:19 Dose: 35 mls/hr Multivitamins/Minerals 10 ml/Chromium/Copper/Manganese/Seleni/Zn 1 ml/ Amino Ac/ Electrol/Dextrose/Calcium 1,011 mls @ 60 mls/hr IV .BY DURATION [facility] Stop: 10/10/18 19:00 Last Admin: 10/09/18 15:06 Dose: 60 mls/hr Amino Ac/Electrol/Dextrose/Calcium (Clinimix E 01/11) 1,000 mls @ 60 mls/hr IV .BY DURATION [facility] Stop: 10/10/18 19:00 Last Admin: 10/10/18 08:18 Dose: 60 mls/hr Potassium Phosphate 20 mmole/ (Sodium Chloride) 106.6667 mls @ 36 mls/hr IV Q3H [facility] Stop: 10/07/18 17:58 Last Admin: 10/07/18 14:29 Dose: 36 mls/hr Linezolid 600 mg/ Premix 300 mls @ 300 mls/hr IV Q12H [facility] Last Admin: 10/08/18 22:32 Dose: 300 mls/hr Meropenem 1 gm/ Sodium (Chloride) 100 mls @ 200 mls/hr IV Q8H [facility] Last Admin: 10/09/18 02:33 Dose: 200 mls/hr Sodium Chloride (Normal Saline) 80 mls @ 3.5 mls/sec IV ONETIME ONE Stop: 10/08/18 09:51 Last Admin: 10/08/18 10:43 Dose: 4 mls/sec Meropenem 1 gm/ Sodium (Chloride) 50 mls @ 100 mls/hr IV Q8H [facility] Potassium Chloride 40 meq/ (Premix) 100 mls @ 25 mls/hr IV ONETIME ONE Stop: 10/09/18 13:29 Last Admin: 10/09/18 10:08 Dose: 25 mls/hr Potassium Phosphate 22.5 mmole (/ Sodium Chloride) 107.5 mls @ 26 mls/hr IV Q4H [facility] Stop: 10/10/18 17:29 Last Admin: 10/10/18 14:30 Dose: 26 mls/hr Multivitamins/Minerals 10 ml/Chromium/Copper/Manganese/Seleni/Zn 1 ml/ Amino Ac/ Electrol/Dextrose/Calcium 1,011 mls @ 60 mls/hr IV .BY DURATION [facility] Last Admin: 10/11/18 02:07 Dose: 60 mls/hr Amino Ac/Electrol/Dextrose/Calcium (Clinimix E 5/15) 1,000 mls @ 60 mls/hr IV .BY DURATION [facility] Multivitamins/Minerals 10 ml/Chromium/Copper/Manganese/Seleni/Zn 1 ml/ Amino Acids/Dextrose 2,011 mls @ 82 mls/hr IV .BY DURATION [facility] Last Admin: 10/11/18 08:19 Dose: 82 mls/hr Amino Acids/Dextrose (Clinimix 5/15) 2,000 mls @ 100 mls/hr IV .BY DURATION [facility] Fat Emulsion Intravenous (Intralipid 20%) 100 mls @ 8.3 mls/hr IV ONETIME ONE Stop: 10/12/18 04:02 Last Admin: 10/11/18 15:15 Dose: 8.3 mls/hr Levetiracetam 500 mg/ Sodium (Chloride) 105 mls @ 400 mls/hr IV Q12H [facility] Stop: 10/12/18 14:00 Last Admin: 10/12/18 11:14 Dose: 400 mls/hr Multivitamins/Minerals 10 ml/Chromium/Copper/Manganese/Seleni/Zn 1 ml/ Amino Acids/Dextrose 2,011 mls @ 82 mls/hr IV .BY DURATION [facility] Last Admin: 10/16/18 09:46 Dose: 82 mls/hr Amino Acids/Dextrose (Clinimix 5/15) 2,000 mls @ 82 mls/hr IV .BY DURATION [facility] Potassium Phosphate 20 mmole/ (Dextrose/Water) 106.6667 mls @ 35 mls/hr IV Q3H [facility] Stop: 10/12/18 17:59 Last Admin: 10/12/18 16:36 Dose: 35 mls/hr Potassium Phosphate 15 mmole/ (Dextrose/Water) 105 mls @ 35 mls/hr IV Q3H [facility] Stop: 10/13/18 16:59 Last Admin: 10/13/18 14:24 Dose: 35 mls/hr Multivitamins/Minerals 10 ml/Chromium/Copper/Manganese/Seleni/Zn 1 ml/ Amino Acids/Dextrose 1,011 mls @ 40 mls/hr IV .BY DURATION [facility] Stop: 10/18/18 09:43 Last Admin: 10/17/18 11:23 Dose: 40 mls/hr Amino Acids/Dextrose (Clinimix 5/15) 1,000 mls @ 40 mls/hr IV .BY DURATION [facility] Stop: 10/18/18 09:43 Sodium Chloride (Normal Saline) 500 mls @ 500 mls/hr IV .BOLUS ONE Stop: 10/17/18 13:52 Last Admin: 10/17/18 12:55 Dose: 500 mls/hr Iopamidol (Isovue-370 (76%)) 52 ml IV . DIRECTED [facility] Stop: 10/08/18 11:00 Last Admin: 10/08/18 10:44 Dose: 52 ml Levothyroxine Sodium (Synthroid) [address] [facility] Last Admin: 10/18/18 07:37 Dose: 100 mcg Levothyroxine Sodium (Levothyroxine) 25 mcg PO ONETIME ONE Stop: 10/18/18 08:01 Last Admin: 10/18/18 09:27 Dose: 25 mcg Lidocaine HCl (Xylocaine 2% Jelly) 10 ml MUCMEM ONETIME ONE Stop: 10/01/18 21:56 Last Admin: 10/01/18 22:04 Dose: 10 ml Lidocaine HCl (Xylocaine 2% Jelly) 10 ml MUCMEM ONETIME ONE Stop: 10/07/18 11:31 Last Admin: 10/07/18 13:49 Dose: 10 ml Lidocaine/Epinephrine (Xylocaine 1% With Epinephrine 1:100,000) Confirm Administered Dose 50 ml .ROUTE .STK-MED ONE Stop: 09/27/18 07:26 Last Admin: 09/27/18 09:40 Dose: 7 ml Loperamide HCl (Imodium) [address] [facility] Last Admin: 10/02/18 05:13 Dose: 2 mg Loperamide HCl (Imodium) 2 mg PO QID PRN PRN Reason: DIARRHEA Last Admin: 10/15/18 08:38 Dose: 2 mg Lorazepam (Ativan) 0.5 mg IVPUSH Q4H PRN PRN Reason: Anxiety Last Admin: 10/07/18 04:13 Dose: 0.5 mg Melatonin (Melatonin) [address] [facility] Last Admin: 10/09/18 21:33 Dose: Not Given Midazolam HCl (Versed 1 Mg/Ml) Confirm Administered Dose 2 mg .ROUTE .STK-MED ONE Stop: 09/27/18 07:08 Non-Formulary Medication (Total Parenteral Nutrition, Central) 1,000 ml .XX .Continue Order [facility] Stop: 09/29/18 12:00 Non-Formulary Medication (Total Parenteral Nutrition, Central) 1,000 ml .XX .Continue Order [facility] Stop: 09/30/18 09:00 Non-Formulary Medication (Total Parenteral Nutrition, Central) 1,000 ml .XX .Continue Order [facility] Stop: 10/15/18 10:00 Non-Formulary Medication (Total Parenteral Nutrition, Central) 1,000 ml .XX .Continue Order [facility] Stop: 10/16/18 12:00 Non-Formulary Medication (Total Parenteral Nutrition, Central) 1,000 ml .XX .Continue Order [facility] Stop: 10/17/18 12:00 Pantoprazole Sodium (Protonix Iv) [address] [facility] Last Admin: 09/29/18 14:31 Dose: 40 mg Polyethylene Glycol (Miralax) 238 gm PO ONETIME ONE Stop: 09/26/18 17:01 Last Admin: 09/26/18 16:54 Dose: 238 gram Potassium Chloride (Klor-Con M20) 40 meq PO ONETIME ONE Stop: 10/06/18 10:01 Last Admin: 10/06/18 09:55 Dose: 40 meq Potassium Chloride (Klor-Con M20) 40 meq PO ONETIME ONE Stop: 10/06/18 17:46 Last Admin: 10/06/18 21:46 Dose: Not Given Potassium Chloride (Klor-Con M20) 40 meq PO ONETIME ONE Stop: 10/06/18 21:01 Last Admin: 10/06/18 21:46 Dose: 40 meq Potassium Chloride (Klor-Con M20) 40 meq PO ONETIME ONE Stop: 10/07/18 08:46 Last Admin: 10/07/18 09:00 Dose: 40 meq Potassium Chloride (Klor-Con M20) 40 meq PO ONETIME ONE Stop: 10/07/18 12:01 Last Admin: 10/07/18 11:48 Dose: 40 meq Potassium Chloride (Klor-Con M20) 40 meq PO ONETIME ONE Stop: 10/09/18 09:01 Last Admin: 10/09/18 09:07 Dose: 40 meq Potassium Chloride (Klor-Con M20) 40 meq PO ONETIME ONE Stop: 10/09/18 12:01 Last Admin: 10/09/18 12:54 Dose: 40 meq Potassium Chloride (Klor-Con M20) 40 meq PO ONETIME ONE Stop: 10/09/18 17:01 Last Admin: 10/09/18 19:34 Dose: Not Given Propofol (Diprivan 20 Ml) Confirm Administered Dose 200 mg .ROUTE .STK-MED ONE Stop: 09/27/18 07:07 Propofol (Diprivan 20 Ml) Confirm Administered Dose 200 mg .ROUTE .STK-MED ONE Stop: 09/27/18 09:05 Sodium Chloride (Saline Flush) 10 ml FLUSH ONETIME ONE Stop: 10/08/18 09:51 Last Admin: 10/08/18 10:44 Dose: 10 ml Tramadol HCl (Ultram) 50 mg PO Q4H PRN PRN Reason: Pain Last Admin: 09/27/18 15:17 Dose: 50 mg - Exam Quality Assessment: Central Line/PICC, DVT Prophylaxis General: Alert, Oriented, Cooperative, No Acute Distress Lungs: Clear to Auscultation, Normal Respiratory Effort Cardiovascular: Regular Rate, Regular Rhythm, No Murmurs GI/Abdominal Exam: Soft, Non-Tender, No Organomegaly, No Distention Extremities: Non-Tender, No Pedal Edema - Problem List Review Problem List Initiated/Reviewed/Updated: Yes - Plan Plan:: ASSESSMENT AND PLAN - ARDS/Acute respiratory failure with hypoxia - respiratory status stable, currently on room air -Supplement oxygen as needed -minimize fluid intake beyond TPN -goal level for transfusion of a hemoglobin less than 8 Orthostatic hypotension-blood pressures intermittently low with standing and sitting. We discussed medical therapy today, he would like to hold on this over the next few days. -High sodium diet -Head of bed elevated at 45 at all times -Thigh high support hose -Consider addition of medical therapy Acute left parietal stroke - minimal residual symptoms -Continue aspirin, and clopidogrel -Continue statin -Occupational therapy Probable seizure - episode of rigidity and unresponsiveness 10/11. Tolerated initiation of Keppra and has not had a recurrent episode. -Continue Keppra, transitioned to oral Urinary retention-catheter successfully removed yesterday -Flomax 0.4 mg by mouth daily -Proscar 5 mg by mouth daily Hypoactive Delirium with mild agitation - no evidence for infection. I suspect this is related to his CVA and he has done well for the past several days. -Melatonin 9 mg by mouth daily at bedtime Pancytopenia - white blood cell count and platelets are now within normal range , likely nutritional. Persistent anemia likely chronic related to underlying health problems.
[2018-10-18] MEDS: Fat Emulsion 100 ML IV SCH (17:24)
[2018-10-18] MEDS: atorvaSTATin 20 MG Tab PO SCH (20:24)
[2018-10-18] MEDS: Melatonin 3 MG Tab PO SCH (20:24)
[2018-10-19] MEDS: Magnesium Sulfate/Water 2 GM in Premix Bag 1 BAG IV SCH ×2 (02:35→07:20)
[2018-10-19] MEDS: Pantoprazole 40 MG Tab.CR PO SCH (07:20)
[2018-10-19] MEDS: Albuterol/Ipratropium 3.0-0.5 MG/3 ML Neb Soln NEB SCH ×2 (07:23→10:56)
[2018-10-19] MEDS ORDERED: Levothyroxine 100 MCG, Levothyroxine 25 MCG PO SCH ×2 (07:30)
[2018-10-19] MEDS ORDERED: Loratadine 10 MG Tab.DIS PO PRN (07:38)
[2018-10-19] MEDS ORDERED: Central Total Parenteral Nutrition Bag SCH (08:00)
[2018-10-19] MEDS: Lactobacillus Rhamnosus GG (Probiotic) Cap PO SCH (08:56)
[2018-10-19] MEDS: Tamsulosin 0.4 MG Cap.ER PO SCH (08:56)
[2018-10-19] MEDS: levETIRAcetam 250 MG Tab PO SCH (08:57)
[2018-10-19] MEDS: Finasteride 5 MG Tab PO SCH (08:57)
[2018-10-19] MEDS: Aspirin 81 MG Tab.EC PO SCH (08:57)
[2018-10-19] MEDS: Clopidogrel 75 MG Tab PO SCH (08:57)
[2018-10-19] MEDS: Fluticasone Propionate Nasal Spray 16 GM Bottle NASBOTH SCH (08:58)
[2018-10-19] MEDS: Atropine/Diphenoxylate 0.025-2.5 MG Tab PO SCH (09:01)
--- NOTE | 2018-10-19 09:25 | PN ---
DATE OF SERVICE: 10/19/2018 SUBJECTIVE: Shun Griffith states that he is feeling 90% better. He was not able to urinate last evening. He did have a bladder scan with 700 mL in his bladder. Declined at that time to have a straight cath. He did urinate 250. Oral intake was recorded at 210. He states he did drink more than that. TPN continues to run. Vital signs have been good. He has been afebrile. Meals recorded: Zero breakfast, 65% lunch, and 50% dinner. Bowel movements 5, but he states they are more firmed. REVIEW OF SYSTEMS: Remainder of review of systems negative for any pertinent positives and negatives. OBJECTIVE: GENERAL: Shun Griffith is a 58-year-old male. He is alert, orientated, quite talkative. VITAL SIGNS: TPR is 93.2, 64, 16, blood pressure 90/48. Prior temperatures were 96.5 to 96.9. HEENT: Negative. NECK: Supple. HEART: Regular rate and rhythm. LUNGS: Clear. ABDOMEN: Negative. EXTREMITIES: Trace peripheral edema. SKIN: Bruised from previous IVs. Triple lumen intact. ASSESSMENT: 1. Malnutrition, TPN therapy, nutritional therapy. 2. Acute respiratory failure with hypoxia. Respiratory status stable. 3. Orthostatic hypotension. 4. Acute left parietal stroke. Minimal residual symptoms. 5. Probable seizure. 6. Urinary retention. 7. Hypoactive delirium with mild agitation, resolved. 8. , resolved. 9. SP duodenal switch. 10.Unspecified surgical malabsorption. 11.Vitamin B deficiency. 12.Vitamin D deficiency. PLAN: 1. Discontinue current TPN at 0800. 2. Discontinue TPN and lipids to run 1 L from 6:00 p.m. until 6:00 a.m. with the last hour of TPN to be 40 mL/h. He should receive a total of 1 L TPN/lipids every 24 hours. 3. Check CBC, CMP, phos, BNP in a.m. 4. Saline lock IV. 5. Good pulmonary toilet. 6. We will evaluate p.r.n. or in a.m. Kelly Parham PA-C /[id number]
--- NOTE | 2018-10-19 11:24 | PCM.DCSUM1 ---
Discharge Summary - Hospital Course Brief History: Mr. Griffith is a 58-year-old gentleman who was admitted by Dr. Nicolas for further evaluation and management of malnutrition and associated diarrhea. - Discharge Data Discharge Date: 10/19/18 Discharge Disposition: DC/Tfer to Inpt Rehab Fac 62 Condition: Fair - Discharge Diagnosis/Problem(s) (1) ARDS (adult respiratory distress syndrome) SNOMED Code(s): 92754135 ICD Code: J80 - ACUTE RESPIRATORY DISTRESS SYNDROME Status: Acute Current Visit: Yes (2) Acute respiratory failure with hypoxia SNOMED Code(s): 28128988, 325280630 ICD Code: J96.01 - ACUTE RESPIRATORY FAILURE WITH HYPOXIA Status: Acute Current Visit: Yes (3) Anemia SNOMED Code(s): 197200574 ICD Code: D64.9 - ANEMIA, UNSPECIFIED Status: Acute Current Visit: No Qualifiers: Anemia type: iron deficiency Iron deficiency anemia type: chronic blood loss Qualified Code(s): D50.0 - Iron deficiency anemia secondary to blood loss (chronic) (4) Acquired hypothyroidism SNOMED Code(s): 235112169 ICD Code: E03.9 - HYPOTHYROIDISM, UNSPECIFIED Status: Acute Current Visit : Yes (5) Seizure as late effect of cerebrovascular accident (CVA) SNOMED Code(s): 556099128886256 ICD Code: I69.398 - OTHER SEQUELAE OF CEREBRAL INFARCTION; R56.9 - UNSPECIFIED CONVULSIONS Status: Suspected Current Visit: Yes (6) Cerebrovascular accident (CVA) involving left cerebral hemisphere SNOMED Code(s): 175897539 ICD Code: I63.9 - CEREBRAL INFARCTION, UNSPECIFIED Status: Acute Current Visit: Yes (7) Urinary retention due to benign prostatic hyperplasia SNOMED Code(s): 259348290 ICD Code: N40.1 - BENIGN PROSTATIC HYPERPLASIA WITH LOWER URINARY TRACT SYMP ; R33.8 - OTHER RETENTION OF URINE Status: Acute Current Visit: Yes (8) Persistent hypoactive delirium due to another medical condition SNOMED Code(s): 2455357, 67599868 ICD Code: F05 - DELIRIUM DUE TO KNOWN PHYSIOLOGICAL CONDITION Status: Acute Current Visit: Yes (9) Pancytopenia SNOMED Code(s): 364372460 ICD Code: D61.818 - OTHER PANCYTOPENIA Status: Acute Current Visit: Yes (10) Orthostatic hypotension SNOMED Code(s): 07307520 ICD Code: I95.1 - ORTHOSTATIC HYPOTENSION Status: Acute Current Visit: Yes - Patient Summary/Data Consults: Consultations 09/27/18 11:32 Consult to Respiratory Therapy [Respiratory Care Assess and Treatment] [CONS] Routine Comment: Physician Instructions: Reason for Consult: RT to see patient tid to assist with pulmonary toileting. Person Notified: [place] Date Notified: 09/27/18 Time Notified: 11:34 09/27/18 11:40 Consult to Physician [CONS] Urgent Consulting Provider: Kentrell Merino Call Completed to Consulting Physician: Yes Reason for Consult: Hypothyroidism. Date Notified: 09/27/18 Time Notified: 10:45 10/06/18 11:05 Consult to Physical Therapy [PT Evaluation and Treatment] [CONS] Routine Please Evaluate and Treat. PT Reason for Consult: Weakness This query below is only for informational purposes and is not editable. Admission Diagnosis/Problem: Hypotension 10/10/18 07:22 Consult to Physician [CONS] Routine Consulting Provider: Kentrell Merino Call Completed to Consulting Physician: No: message relayed when in to see patient, already following Reason for Consult: address psych status. Refusing cares, etc. Date Notified: 10/10/18 10/10/18 09:27 PT Evaluation and Treatment [CONS] Routine Please Evaluate and Treat. PT Reason for Consult: Strengthening Pending Discharge: Yes Special Instructions: range of motion exercise This query below is only for informational purposes and is not editable. Admission Diagnosis/Problem: Hypotension 10/11/18 10:26 OT Evaluation and Treatment [CONS] Routine Please Evaluate and Treat. OT Reason for Consult: ADL's Special Instructions: left parietal stroke, visual difficulties This query below is only for informational purposes and is not editable. Admission Diagnosis/Problem: Hypotension 10/13/18 06:32 Consult to Dietary [Consult to Lead Ruby On Rails Developer] [CONS] Routine Comment: Physician Instructions: dietary to see pt.re:increase po intake Quantity: Reason for Consult: failure to thrive. recent pneumonia 10/13/18 06:55 Consult to Physical Therapy [PT Evaluation and Treatment] [CONS] Routine Please Evaluate and Treat. PT Reason for Consult: Strengthening Pending Discharge: No Special Instructions: P.T. to see daily re: general rehab This query below is only for informational purposes and is not editable. Admission Diagnosis/Problem: Hypotension 10/17/18 07:46 Consult to Lead Ruby On Rails Developer [CONS] Routine Comment: Physician Instructions: Quantity: Special Instructions: discuss changing pop intake to Protein water 10/18/18 07:15 Consult to Case Management/Process Manager [CONS] Routine Comment: Physician Instructions: Service(s) to be Consulted: Case Management Special Instructions: rehab facility that can do night time TPN/lipids possible DC Th/Wed Hospital Course: Galen was admitted to the hospital from the clinic with dehydration and malnourishment. He does report a downhill slide over the past couple of years but more impressively in the past couple of months. He has lost significant weight. Appetite has been good but anytime he eats he has significant diarrhea afterwards. He does not endorse abdominal pain. He has not had any fevers. He does not endorse shortness of breath or dyspnea with exertion. He does endorse significant fatigue and falls asleep multiple times per day. He thinks he's been sleeping much more than his normal. He fatigues quickly whenever he is trying to perform a task. He has not noticed any changes with his hair. He does have chronic lower extremity edema which is relatively stable. EGD this morning was fairly unremarkable and colonoscopy was incomplete as far as the prep was concerned but visualization was thought to be adequate and no acute findings were noted. He is receiving a unit of blood for hemoglobin of 8.5. He has multiple bottles of albumin ordered. TPN is going to be started through a Whitney catheter that was placed today. Laboratory testing this morning revealed a TSH of nearly 40. He does not have a history of hypothyroidism. He was started on thyroid replacement medication and initially seemed to be doing somewhat better. He then developed progressive respiratory compromise, this was initially felt to be secondary to pulmonary edema. He was transferred to the intensive care unit and placed on noninvasive positive pressure ventilation. Despite excellent diuresis his respiratory status did not improve and it became more apparent that the pulmonary edema was likely secondary to ARDS. There was some question of possible pneumonia and he initially was started on IV antibiotic therapy but this was later discontinued with no evidence of obvious infection. He continued to receive IV diuretics through most the hospital course for management of extra fluid and on admission he did have significant peripheral edema. He slowly improved from a respiratory standpoint and by the time of discharge was off of supplemental oxygen. He did experience initial episode of decreased level of consciousness, CT scan showed evidence of an old cerebellar infarct but no other new abnormalities. He improved from that episode but then again became more lethargic and confused with hypoactive delirium. MRI was obtained and showed evidence of an acute parietal infarct on the left side. Started on Plavix and aspirin and these will be continued on discharge in addition he was also started on statin therapy. MRA was obtained and showed no significant areas of blockage in the neck or head. Echocardiogram was obtained and showed adequate left ventricular function. A few days after diagnosis of the acute CVA he did have a generalized tonic-clonic seizure. He was started on Keppra 500 mg twice daily and there were no further episodes of seizure activity during the hospitalization. He experienced difficulty with urinary retention requiring placement of a Gibbons catheter. He was started on Flomax as well as pros card during the hospitalization and by the time of discharge the catheter had been removed and he was able to urinate. Blood counts were monitored throughout the hospitalization and during the early portion and midportion of hospitalization he was noted to have thrombocytopenia, leukopenia, and anemia. Peripheral smear was obtained which documented these findings but showed no obvious underlying cause. By the time of discharge leukopenia and thrombocytopenia had resolved. He continued to experience ongoing anemia which was felt to be nutritional, he did have EGD and colonoscopy performed at the time of admission showing no obvious sources of blood loss. He did receive intermittent transfusions throughout the hospital stay for management of his anemia. He gradually improved up until the time of discharge and had been walking short distances in the hallways without supplemental oxygen. He was eating and did experience some loose stools, but not at the frequency that he experienced prior to hospitalization. He was treated with Lomotil, scheduled twice daily and every 6 hours as needed. Also noted towards in the hospital stay was persistent difficulty with orthostatic hypotension. He was on no blood pressure lowering medications. This was managed conservatively by increasing sodium in diet, keeping the head of the bed elevated 45 at all times, and thigh-high support hose. We discussed possible use of medication for management of orthostatic hypotension but he preferred to continue conservative management at least in the short-term. Because of severe weakness he was evaluated for possible admission to the [facility] in [facility]. He has been accepted for admission will be transferred there by family. Activity will be as tolerated 10 units current diet. After completion of acute rehabilitation patient have scheduled follow-up appointments with Dr. Nicolas as well as primary care. TSH should be obtained in one month and he should also be scheduled for outpatient appointment with neurology for follow-up of his seizure and acute CVA. He will remain on TPN after discharge while at rehabilitation, this will be ordered by Dr. Nicolas. - Patient Instructions Diet: Regular Diet as Tolerated Activity: As Tolerated Other/Special Instructions: Mr. Griffith will be transferred to acute rehabilitation facility in [facility]. After discharge from rehabilitation he should have follow-up appointment scheduled with primary care provider as well as Dr. Nicolas. TSH should be obtained in one month for follow- up of hypothyroidism. - Discharge Plan *PRESCRIPTION DRUG MONITORING PROGRAM REVIEWED*: Not Applicable *COPY OF PRESCRIPTION DRUG MONITORING REPORT IN PATIENT [place]: Not Applicable Prescriptions/Med Rec: Finasteride [Proscar] 5 mg PO DAILY #30 tablet Levothyroxine 125 mcg PO DAILY #30 tablet Home Medications: Home Meds Nitroglycerin [Nitrostat] 0.4 mg SL ASDIRECTED 11/16/14 [History] Testosterone Cypionate 1.5 ml IM .[id number] 11/16/14 [History] Cyanocobalamin (Vitamin B12) [Vitamin B12] 1,000 mcg PO DAILY #100 tablet [Rx] Multivitamin [Multivitamins] 1 each PO BID #100 tab.chew 03/19/16 [Rx] Furosemide 0.5 tab PO DAILY 09/22/18 [History] Calcium Carbonate/Vitamin D3 [Calcium 500-Vit D3 600 Tablet] 1 tab PO BID [History] Folic Acid 1 mg PO DAILY 09/26/18 [History] Loperamide [Imodium] 2 mg PO QID 09/26/18 [History] Nitroglycerin [Nitrostat] 0.4 mg SL ASDIRECTED PRN 09/26/18 [History] Pantoprazole Sodium [Protonix] 40 mg PO DAILY 09/26/18 [History] Thiamine HCl [B-1] 100 mg PO DAILY 09/26/18 [History] Zinc Gluconate [Zinc] 15 mg PO DAILY 09/26/18 [History] Aspirin [Halfprin] 81 mg PO DAILY tab.ec 10/19/18 [Rx] Atropine/Diphenoxylate [Diphenoxylate-Atropine] 1 tab PO BID tablet 10/19/18 [ Rx] Atropine/Diphenoxylate [Diphenoxylate-Atropine] 1 tab PO Q6H PRN tablet [Rx] Clopidogrel [Plavix] 75 mg PO DAILY tablet 10/19/18 [Rx] Finasteride [Proscar] 5 mg PO DAILY #30 tablet 10/19/18 [Rx] Fluticasone Propionate [Flonase] 2 inh NASBOTH DAILY bottle 10/19/18 [Rx] Lactobacillus Rhamnosus GG [Culturelle] 1 cap PO BID cap 10/19/18 [Rx] Levothyroxine 125 mcg PO DAILY #30 tablet 10/19/18 [Rx] Tamsulosin [Flomax] 0.4 mg PO DAILY cap.er 10/19/18 [Rx] atorvaSTATin [Lipitor] 20 mg PO BEDTIME tablet 10/19/18 [Rx] levETIRAcetam [Keppra] 500 mg PO BID tablet 10/19/18 [Rx] - Discharge Summary/Plan Comment DC Time >30 min.: No - Patient Data Vitals - Most Recent: Last Vital Signs Temp 93.2 F L 10/19/18 07:17 Pulse 68 10/19/18 10:57 Resp 16 10/19/18 07:17 BP 90/48 L 10/19/18 07:17 Pulse Ox 94 L 10/19/18 07:17 Weight - Most Recent: 99 lb 3.2 oz I&O - Last 24 hours: Intake & Output 10/18/18 10/19/18 10/19/18 22:59 06:59 14:59 Intake Total 758 641 Output Total 900 250 Balance -142 391 Med Orders - Current: Current Medications Acetaminophen (Tylenol) 650 mg PO Q4H PRN PRN Reason: ANALGESIA/FEVER Last Admin: 10/17/18 08:43 Dose: 650 mg Acetaminophen (Tylenol) 650 mg RECTAL Q4H PRN PRN Reason: ANALGESIA/FEVER Albuterol (Proventil Neb Soln) 2.5 mg NEB Q2H PRN PRN Reason: Shortness of Breath Last Admin: 10/10/18 00:10 Dose: 2.5 mg Albuterol/Ipratropium (Duoneb 3.0-0.5 Mg/3 Ml) 3 ml NEB QIDRT [facility] Last Admin: 10/19/18 10:56 Dose: 3 ml Aspirin (Halfprin) 81 mg PO DAILY [facility] Last Admin: 10/19/18 08:57 Dose: 81 mg Atorvastatin Calcium (Lipitor) 20 mg PO BEDTIME [facility] Last Admin: 10/18/18 20:24 Dose: 20 mg Benzocaine/Menthol (Cepacol Sore Throat) 1 lozenge MUCMEM 6XDAY PRN PRN Reason: Sore Throat Last Admin: 09/27/18 15:32 Dose: 1 john Clopidogrel Bisulfate (Plavix) 75 mg PO DAILY [facility] Last Admin: 10/19/18 08:57 Dose: 75 mg Diphenoxylate HCl/Atropine (Lomotil 0.025-2.5 Mg) 1 tab PO BID [facility] Last Admin: 10/19/18 09:01 Dose: 1 tab Diphenoxylate HCl/Atropine (Lomotil 0.025-2.5 Mg) 1 tab PO Q6H PRN PRN Reason: Diarrhea Last Admin: 10/17/18 18:30 Dose: 1 tab Finasteride (Proscar) 5 mg PO DAILY [facility] Last Admin: 10/19/18 08:57 Dose: 5 mg Fluticasone Propionate (Flonase) 0 gm NASBOTH DAILY [facility] Last Admin: 10/19/18 08:58 Dose: Not Given Haloperidol Lactate (Haldol) 1 mg IVPUSH Q2H PRN PRN Reason: Agitation Last Admin: 10/13/18 03:38 Dose: 1 mg Heparin Sodium (Porcine) (Heparin Lock Flush 100 Units/Ml) 250 units 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 Last Admin: 10/17/18 14:16 Dose: 250 units Magnesium Sulfate 2 gm/ Premix 50 mls @ 25 mls/hr IV Q6H [facility] Stop: 10/20/18 03:59 Last Admin: 10/19/18 07:20 Dose: 25 mls/hr Multivitamins/Minerals 10 ml/Chromium/Copper/Manganese/Seleni/Zn 1 ml/ Amino Acids/Dextrose 1,011 mls @ 88 mls/hr IV DAILY@1800 [facility] Fat Emulsion Intravenous (Intralipid 20%) 100 mls @ 10 mls/hr IV Q24H [facility] Lactobacillus Rhamnosus (Culturelle) 1 cap PO BID [facility] Last Admin: 10/19/18 08:56 Dose: 1 cap Levetiracetam (Keppra) 500 mg PO BID [facility] Last Admin: 10/19/18 08:57 Dose: 500 mg Levothyroxine Sodium 100 mcg/ (Levothyroxine Sodium 25 mcg) 125 mcg PO DAILY@ 0730 [facility] Last Admin: 10/19/18 07:20 Dose: 125 mcg Loratadine (Claritin Reditabs) 10 mg PO DAILY PRN PRN Reason: Itching Melatonin (Melatonin) 9 mg PO BEDTIME [facility] Last Admin: 10/18/18 20:24 Dose: 9 mg Morphine Sulfate (Morphine) 4 mg IVPUSH Q2H PRN PRN Reason: air hunger/chest tightness Pantoprazole Sodium (Protonix) 40 mg PO ACBREAKFAST [facility] Last Admin: 10/19/18 07:20 Dose: 40 mg Sodium Chloride (Saline Flush) 5 ml IV 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 Last Admin: 10/08/18 05:46 Dose: 5 ml Sodium Chloride (Dunbar Nasal Frederica) 0 ml ARABELLA Q2H PRN PRN Reason: nasal congestion Tamsulosin HCl (Flomax) 0.4 mg PO DAILY [facility] Last Admin: 10/19/18 08:56 Dose: 0.4 mg Discontinued Medications Acetazolamide (Diamox) 250 mg IVPUSH Q6H [facility] Stop: 10/05/18 22:01 Last Admin: 10/05/18 22:12 Dose: 250 mg Acetazolamide (Diamox) 250 mg IVPUSH Q12H [facility] Stop: 10/06/18 22:01 Last Admin: 10/06/18 21:46 Dose: 250 mg Albuterol/Ipratropium (Duoneb 3.0-0.5 Mg/3 Ml) 3 ml NEB Q6H [facility] Last Admin: 09/29/18 19:53 Dose: 3 ml Albuterol/Ipratropium (Duoneb 3.0-0.5 Mg/3 Ml) 3 ml NEB Q2H PRN PRN Reason: shortness of breath Last Admin: 10/01/18 17:31 Dose: 3 ml Bupivacaine HCl (Marcaine 0.5%) Confirm Administered Dose 50 ml .ROUTE .STK-MED ONE Stop: 09/27/18 07:25 Last Admin: 09/27/18 09:39 Dose: 7 ml Clopidogrel Bisulfate (Plavix) 75 mg PO ONETIME ONE Stop: 10/10/18 15:13 Last Admin: 10/10/18 15:58 Dose: 75 mg Diphenoxylate HCl/Atropine (Lomotil 0.025-2.5 Mg) 1 tab PO QID PRN PRN Reason: Diarrhea Last Admin: 10/15/18 20:53 Dose: 1 tab Divalproex Sodium (Divalproex Sodium) 250 mg PO BIDMEALS ELYSE Last Admin: 10/08/18 09:11 Dose: 250 mg Fentanyl (Sublimaze) Confirm Administered Dose 100 mcg .ROUTE .[facility]-MED ONE Stop: 09/27/18 07:07 Furosemide (Lasix) 20 mg PO BIDDIURETIC ELYSE Last Admin: 09/27/18 15:03 Dose: Not Given Furosemide (Lasix) 20 mg IV ONETIME ONE Stop: 09/27/18 16:01 Last Admin: 09/27/18 15:08 Dose: 20 mg Furosemide (Lasix) 40 mg IVPUSH ONETIME ONE Stop: 09/29/18 22:46 Last Admin: 09/29/18 23:04 Dose: 40 mg Furosemide (Lasix) 40 mg IVPUSH ONETIME ONE Stop: 09/30/18 08:11 Last Admin: 09/30/18 08:03 Dose: 40 mg Furosemide (Lasix) 20 mg PO BIDDIURETIC ELYSE Last Admin: 10/02/18 10:25 Dose: Not Given Furosemide (Lasix) 20 mg IV ONETIME ONE Stop: 10/01/18 10:01 Last Admin: 10/01/18 09:36 Dose: 20 mg Furosemide (Lasix) 20 mg IVPUSH ONETIME ONE Stop: 10/01/18 18:28 Last Admin: 10/01/18 18:34 Dose: 20 mg Furosemide (Lasix) 40 mg IVPUSH ONETIME ONE Stop: 10/01/18 21:45 Last Admin: 10/01/18 22:21 Dose: 40 mg Furosemide (Lasix) 40 mg IVPUSH ONETIME ONE Stop: 10/02/18 05:01 Last Admin: 10/02/18 05:13 Dose: 40 mg Furosemide 20 mg/ Furosemide (40 mg) 60 mg IV Q8H [facility] Last Admin: 10/03/18 09:11 Dose: 60 mg Furosemide (Lasix) 40 mg IV Q8H [facility] Last Admin: 10/05/18 04:02 Dose: 40 mg Furosemide (Lasix) 40 mg IV DAILY [facility] Last Admin: 10/06/18 09:37 Dose: 40 mg Furosemide (Lasix) 20 mg IV DAILY [facility] Furosemide (Lasix) 20 mg IVPUSH NOW ONE Stop: 10/08/18 10:10 Last Admin: 10/08/18 10:40 Dose: 20 mg Furosemide (Lasix) 40 mg IVPUSH Q8H [facility] Last Admin: 10/11/18 03:33 Dose: 40 mg Furosemide (Lasix) 20 mg IVPUSH ONETIME ONE Stop: 10/13/18 11:01 Furosemide (Lasix) 40 mg IVPUSH ONETIME ONE Stop: 10/13/18 19:01 Last Admin: 10/13/18 18:27 Dose: 40 mg Furosemide (Lasix) 40 mg IVPUSH ONETIME ONE Stop: 10/13/18 11:01 Last Admin: 10/13/18 10:15 Dose: 40 mg Furosemide (Lasix) 20 mg IVPUSH NOW ONE Stop: 10/14/18 10:31 Last Admin: 10/14/18 10:20 Dose: 20 mg Furosemide (Lasix) 40 mg IVPUSH NOW ONE Stop: 10/15/18 11:01 Last Admin: 10/15/18 11:34 Dose: 40 mg Furosemide (Lasix) 40 mg IVPUSH NOW ONE Stop: 10/17/18 10:16 Last Admin: 10/17/18 10:17 Dose: 40 mg Haloperidol Lactate (Haldol) 1 mg IVPUSH Q2H PRN PRN Reason: Agitation Heparin Sodium (Porcine) (Heparin Lock Flush 100 Units/Ml) Confirm Administered Dose 1,500 units .ROUTE .STK-MED ONE Stop: 09/27/18 07:26 Last Admin: 09/27/18 09:39 Dose: 1,500 units Dextrose/Lactated Ringer's (Dextrose 5%-Lactated Ringers) 1,000 mls @ 100 mls/ hr IV ASDIRECTED [facility] Stop: 09/26/18 20:59 Last Admin: 09/26/18 12:03 Dose: 100 mls/hr Albumin Human (Albumin 25%) 25 gm in 100 mls @ 25 mls/hr IV ONETIME ONE Stop: 09/26/18 20:59 Last Admin: 09/26/18 16:54 Dose: 25 mls/hr Multivitamins/Minerals 10 ml/Chromium/Copper/Manganese/Zinc 1 ml/ Thiamine HCl 100 mg/Dextrose/Lactated Ringer's 1,012 mls @ 100 mls/hr IV .Q10H8M ELYSE Stop: 09/27/18 13:59 Last Admin: 09/27/18 11:43 Dose: 100 mls/hr Levofloxacin/Dextrose 500 mg/ (Premix) 100 mls @ 100 mls/hr IV ONETIME ONE Stop: 09/27/18 09:29 Last Admin: 09/27/18 20:47 Dose: Not Given Clindamycin Phosphate 900 mg/ (Sodium Chloride) 106 mls @ 212 mls/hr IV ONETIME ONE Stop: 09/27/18 09:59 Last Admin: 09/27/18 20:47 Dose: Not Given Lactated Ringer's (Ringers, Lactated) Confirm Administered Dose 1,000 mls @ as directed .ROUTE .STK-MED ONE Stop: 09/27/18 09:48 Albumin Human (Albumin 25%) 25 gm in 100 mls @ 25 mls/hr IV Q24H ELYSE Stop: 09/30/18 15:59 Last Admin: 09/30/18 12:10 Dose: 25 mls/hr Multivitamins/Minerals 10 ml/Chromium/Copper/Manganese/Seleni/Zn 1 ml/ Amino Ac/ Electrol/Dextrose/Calcium 1,011 mls @ 80 mls/hr IV .BY DURATION [facility] Stop: 09/28/18 14:59 Last Admin: 09/27/18 14:31 Dose: 80 mls/hr Amino Ac/Electrol/Dextrose/Calcium (Clinimix E 15) 1,000 mls @ 80 mls/hr IV .BY DURATION [facility] Stop: 09/28/18 14:59 Last Admin: 09/28/18 03:13 Dose: 80 mls/hr Fat Emulsion Intravenous (Intralipid 20%) 100 mls @ 8.3 mls/hr IV ONETIME ONE Stop: 09/28/18 04:02 Last Admin: 09/27/18 16:30 Dose: 8.3 mls/hr Sodium Chloride (Normal Saline) 1,000 mls @ 0 mls/hr IV ASDIRECTED [facility] Stop: 09/28/18 11:59 Last Admin: 09/27/18 16:36 Dose: 25 mls/hr Acetaminophen 1,000 mg/ Premix 100 mls @ 400 mls/hr IV NOW ONE Stop: 09/27/18 13:14 Last Admin: 09/27/18 12:56 Dose: 400 mls/hr Levofloxacin/Dextrose 500 mg/ (Premix) 100 mls @ 100 mls/hr IV Q24H [facility] Last Admin: 09/28/18 07:28 Dose: 100 mls/hr Clindamycin Phosphate 900 mg/ (Sodium Chloride) 106 mls @ 212 mls/hr IV Q12H [facility] Last Admin: 09/28/18 21:42 Dose: 212 mls/hr Dextrose/Sodium Chloride (Dextrose 5%-1/2 Ns) 1,000 mls @ 0 mls/hr IV ASDIRECTED [facility] Last Admin: 10/01/18 15:04 Dose: 25 mls/hr Magnesium Sulfate 2 gm/ Premix 50 mls @ 25 mls/hr IV Q6H [facility] Stop: 10/01/18 05:59 Last Admin: 10/01/18 03:28 Dose: 25 mls/hr Albumin Human (Albumin 25%) 25 gm in 100 mls @ 25 mls/hr IV Q24H [facility] Stop: 09/30/18 19:59 Last Admin: 09/30/18 16:39 Dose: 25 mls/hr Multivitamins/Minerals 10 ml/Chromium/Copper/Manganese/Seleni/Zn 1 ml/ Amino Ac/ Electrol/Dextrose/Calcium 1,011 mls @ 80 mls/hr IV .BY DURATION [facility] Stop: 09/30/18 17:15 Last Admin: 09/29/18 16:05 Dose: 80 mls/hr Amino Ac/Electrol/Dextrose/Calcium (Clinimix E 15) 1,000 mls @ 80 mls/hr IV .BY DURATION [facility] Stop: 09/30/18 17:15 Last Admin: 09/30/18 05:54 Dose: 80 mls/hr Fat Emulsion Intravenous (Intralipid 20%) 100 mls @ 9 mls/hr IV ONETIME ONE Stop: 09/29/18 05:06 Last Admin: 09/28/18 17:39 Dose: 9 mls/hr Potassium Phosphate 15 mmole/ (Sodium Chloride) 105 mls @ 50 mls/hr IV Q2H [facility] Stop: 09/30/18 15:59 Last Admin: 09/30/18 14:32 Dose: 50 mls/hr Multivitamins/Minerals 10 ml/Chromium/Copper/Manganese/Seleni/Zn 1 ml/ Amino Ac/ Electrol/Dextrose/Calcium 1,011 mls @ 60 mls/hr IV .BY DURATION [facility] Stop: 10/02/18 20:00 Last Infusion: 10/02/18 09:00 Dose: 40 mls/hr Amino Ac/Electrol/Dextrose/Calcium (Clinimix E 5/15) 1,000 mls @ 60 mls/hr IV .BY DURATION [facility] [place] Stop: 10/02/18 20:00 Last Admin: 10/01/18 13:24 Dose: 60 mls/hr Albumin Human (Albumin 25%) 25 gm in 100 mls @ 25 mls/hr IV Q24H [facility] [place] Stop: 10/03/18 15:59 Last Admin: 10/01/18 12:18 Dose: 25 mls/hr Albumin Human (Albumin 25%) 25 gm in 100 mls @ 25 mls/hr IV Q24H [facility] [place] Stop: 10/03/18 19:59 Last Admin: 10/01/18 16:38 Dose: 25 mls/hr Fat Emulsion Intravenous (Intralipid 20%) 250 mls @ 21 mls/hr IV ONETIME ONE Stop: 10/02/18 05:54 Last Admin: 10/01/18 17:31 Dose: 21 mls/hr Fat Emulsion Intravenous (Intralipid 20%) 250 mls @ 21 mls/hr IV Q24H [facility] [place] Potassium Chloride 20 meq/Lidocaine HCl 2 ml/ Sodium Chloride 112 mls @ 50 mls/ hr IV Q2H [facility] [place] Stop: 10/02/18 07:29 Last Admin: 10/02/18 06:32 Dose: Not Given Potassium Chloride 40 meq/ (Premix) 100 mls @ 25 mls/hr IV ONETIME ONE Stop: 10/02/18 07:30 Last Admin: 10/02/18 03:50 Dose: 25 mls/hr Potassium Chloride (Kcl 40 Meq In Water 100 Ml) Confirm Administered Dose 100 mls @ as directed .ROUTE .STK-MED ONE Stop: 10/02/18 03:50 Last Admin: 10/02/18 04:03 Dose: Not Given Potassium Phosphate 22.5 mmole (/ Sodium Chloride) 107.5 mls @ 26 mls/hr IV Q4H [facility] [place] Stop: 10/02/18 18:29 Last Admin: 10/02/18 14:34 Dose: 26 mls/hr Multivitamins/Minerals 10 ml/Chromium/Copper/Manganese/Seleni/Zn 1 ml/ Amino Ac/ Electrol/Dextrose/Calcium 1,011 mls @ 40 mls/hr IV .BY DURATION [facility] [place] Stop: 10/03/18 23:30 Last Admin: 10/03/18 05:34 Dose: 40 mls/hr Amino Ac/Electrol/Dextrose/Calcium (Clinimix E 5/15) 1,000 mls @ 40 mls/hr IV .BY DURATION [facility] [place] Stop: 10/03/18 23:30 Potassium Chloride 40 meq/ (Premix) 100 mls @ 25 mls/hr IV ONETIME ONE Stop: 10/03/18 12:59 Last Admin: 10/03/18 08:20 Dose: 25 mls/hr Linezolid 600 mg/ Premix 300 mls @ 300 mls/hr IV Q12H [facility] [place] Last Admin: 10/07/18 08:06 Dose: 300 mls/hr Multivitamins/Minerals 10 ml/Chromium/Copper/Manganese/Seleni/Zn 1 ml/ Amino Ac/ Electrol/Dextrose/Calcium 1,011 mls @ 40 mls/hr IV .BY DURATION [facility] [place] Last Admin: 10/04/18 04:56 Dose: 40 mls/hr Amino Ac/Electrol/Dextrose/Calcium (Clinimix E 5/15) 1,000 mls @ 40 mls/hr IV .BY DURATION [facility] [place] Piperacillin/Tazobactam/ (Dextrose 3.375 gm/ Premix) 50 mls @ 100 mls/hr IV Q6H [facility] [place] Last Admin: 10/07/18 04:13 Dose: 100 mls/hr Levofloxacin/Dextrose 750 mg/ (Premix) 150 mls @ 100 mls/hr IV Q24H [facility] [place] Last Admin: 10/08/18 16:08 Dose: 100 mls/hr Potassium Phosphate 22.5 mmole (/ Sodium Chloride) 107.5 mls @ 27 mls/hr IV Q4H [facility] Stop: 10/04/18 17:59 Last Admin: 10/04/18 13:34 Dose: 27 mls/hr Multivitamins/Minerals 10 ml/Chromium/Copper/Manganese/Seleni/Zn 1 ml/ Amino Ac/ Electrol/Dextrose/Calcium 1,011 mls @ 40 mls/hr IV .BY DURATION [facility] Stop: 10/05/18 21:59 Last Admin: 10/05/18 04:44 Dose: 40 mls/hr Amino Ac/Electrol/Dextrose/Calcium (Clinimix E 5/15) 1,000 mls @ 40 mls/hr IV .BY DURATION [facility] [place] Stop: 10/05/18 21:59 Potassium Chloride 20 meq/ (Premix) 100 mls @ 50 mls/hr IV ONETIME ONE Stop: 10/05/18 09:59 Last Admin: 10/05/18 08:01 Dose: 50 mls/hr Potassium Chloride 40 meq/ (Premix) 100 mls @ 25 mls/hr IV ONETIME ONE Stop: 10/05/18 13:59 Last Admin: 10/05/18 10:16 Dose: 25 mls/hr Magnesium Sulfate 2 gm/ Premix 50 mls @ 25 mls/hr IV Q6H [facility] Stop: 10/07/18 05:59 Last Admin: 10/07/18 04:14 Dose: 25 mls/hr Multivitamins/Minerals 10 ml/Chromium/Copper/Manganese/Seleni/Zn 1 ml/ Amino Ac/ Electrol/Dextrose/Calcium 1,011 mls @ 60 mls/hr IV .BY DURATION [facility] [place] Stop: 10/06/18 13:55 Amino Ac/Electrol/Dextrose/Calcium (Clinimix E 5/15) 1,000 mls @ 60 mls/hr IV .BY DURATION [facility] [place] Stop: 10/06/18 13:55 Last Admin: 10/06/18 00:34 Dose: 60 mls/hr Potassium Chloride 40 meq/ (Premix) 100 mls @ 25 mls/hr IV ONETIME ONE Stop: 10/05/18 23:59 Last Admin: 10/05/18 20:05 Dose: 25 mls/hr Potassium Phosphate 20 mmole/ (Sodium Chloride) 106.6667 mls @ 35 mls/hr IV Q3H [facility] [place] Stop: 10/06/18 16:59 Last Admin: 10/06/18 15:19 Dose: 35 mls/hr Multivitamins/Minerals 10 ml/Chromium/Copper/Manganese/Seleni/Zn 1 ml/ Amino Ac/ Electrol/Dextrose/Calcium 1,011 mls @ 60 mls/hr IV .BY DURATION [facility] [place] Stop: 10/10/18 19:00 Last Admin: 10/09/18 15:06 Dose: 60 mls/hr Amino Ac/Electrol/Dextrose/Calcium (Clinimix E 01/11) 1,000 mls @ 60 mls/hr IV .BY DURATION [facility] [place] Stop: 10/10/18 19:00 Last Admin: 10/10/18 08:18 Dose: 60 mls/hr Potassium Phosphate 20 mmole/ (Sodium Chloride) 106.6667 mls @ 36 mls/hr IV Q3H [facility] [place] Stop: 10/07/18 17:58 Last Admin: 10/07/18 14:29 Dose: 36 mls/hr Linezolid 600 mg/ Premix 300 mls @ 300 mls/hr IV Q12H [facility] [place] Last Admin: 10/08/18 22:32 Dose: 300 mls/hr Meropenem 1 gm/ Sodium (Chloride) 100 mls @ 200 mls/hr IV Q8H [facility] [place] Last Admin: 10/09/18 02:33 Dose: 200 mls/hr Sodium Chloride (Normal Saline) 80 mls @ 3.5 mls/sec IV ONETIME ONE Stop: 10/08/18 09:51 Last Admin: 10/08/18 10:43 Dose: 4 mls/sec Meropenem 1 gm/ Sodium (Chloride) 50 mls @ 100 mls/hr IV Q8H [facility] [place] Potassium Chloride 40 meq/ (Premix) 100 mls @ 25 mls/hr IV ONETIME ONE Stop: 10/09/18 13:29 Last Admin: 10/09/18 10:08 Dose: 25 mls/hr Potassium Phosphate 22.5 mmole (/ Sodium Chloride) 107.5 mls @ 26 mls/hr IV Q4H [facility] [place] Stop: 10/10/18 17:29 Last Admin: 10/10/18 14:30 Dose: 26 mls/hr Multivitamins/Minerals 10 ml/Chromium/Copper/Manganese/Seleni/Zn 1 ml/ Amino Ac/ Electrol/Dextrose/Calcium 1,011 mls @ 60 mls/hr IV .BY DURATION [facility] [place] Last Admin: 10/11/18 02:07 Dose: 60 mls/hr Amino Ac/Electrol/Dextrose/Calcium (Clinimix E 5/15) 1,000 mls @ 60 mls/hr IV .BY DURATION [facility] [place] Multivitamins/Minerals 10 ml/Chromium/Copper/Manganese/Seleni/Zn 1 ml/ Amino Acids/Dextrose 2,011 mls @ 82 mls/hr IV .BY DURATION [facility] [place] Last Admin: 10/11/18 08:19 Dose: 82 mls/hr Amino Acids/Dextrose (Clinimix 5/15) 2,000 mls @ 100 mls/hr IV .BY DURATION [facility] [place] Fat Emulsion Intravenous (Intralipid 20%) 100 mls @ 8.3 mls/hr IV ONETIME ONE Stop: 10/12/18 04:02 Last Admin: 10/11/18 15:15 Dose: 8.3 mls/hr Levetiracetam 500 mg/ Sodium (Chloride) 105 mls @ 400 mls/hr IV Q12H [facility] [place] Stop: 10/12/18 14:00 Last Admin: 10/12/18 11:14 Dose: 400 mls/hr Multivitamins/Minerals 10 ml/Chromium/Copper/Manganese/Seleni/Zn 1 ml/ Amino Acids/Dextrose 2,011 mls @ 82 mls/hr IV .BY DURATION [facility] [place] Last Admin: 10/16/18 09:46 Dose: 82 mls/hr Amino Acids/Dextrose (Clinimix 5/15) 2,000 mls @ 82 mls/hr IV .BY DURATION [facility] [place] Potassium Phosphate 20 mmole/ (Dextrose/Water) 106.6667 mls @ 35 mls/hr IV Q3H [facility] [place] Stop: 10/12/18 17:59 Last Admin: 10/12/18 16:36 Dose: 35 mls/hr Fat Emulsion Intravenous (Intralipid 20%) 100 mls @ 8.3 mls/hr IV Q24H [facility] [place] Last Admin: 10/18/18 17:24 Dose: 8.3 mls/hr Potassium Phosphate 15 mmole/ (Dextrose/Water) 105 mls @ 35 mls/hr IV Q3H [facility] Stop: 10/13/18 16:59 Last Admin: 10/13/18 14:24 Dose: 35 mls/hr Multivitamins/Minerals 10 ml/Chromium/Copper/Manganese/Seleni/Zn 1 ml/ Amino Acids/Dextrose 1,011 mls @ 40 mls/hr IV .BY DURATION [facility] Stop: 10/18/18 09:43 Last Admin: 10/17/18 11:23 Dose: 40 mls/hr Amino Acids/Dextrose (Clinimix 5/15) 1,000 mls @ 40 mls/hr IV .BY DURATION [facility] Stop: 10/18/18 09:43 Sodium Chloride (Normal Saline) 500 mls @ 500 mls/hr IV .BOLUS ONE Stop: 10/17/18 13:52 Last Admin: 10/17/18 12:55 Dose: 500 mls/hr Multivitamins/Minerals 10 ml/Chromium/Copper/Manganese/Seleni/Zn 1 ml/ Amino Acids/Dextrose 1,011 mls @ 40 mls/hr IV .BY DURATION [facility] Stop: 10/19/18 09:59 Last Admin: 10/18/18 11:29 Dose: 40 mls/hr Amino Acids/Dextrose (Clinimix 5/15) 1,000 mls @ 40 mls/hr IV .BY DURATION [facility] [place] Stop: 10/19/18 09:59 Iopamidol (Isovue-370 (76%)) 52 ml IV . DIRECTED [facility] Stop: 10/08/18 11:00 Last Admin: 10/08/18 10:44 Dose: 52 ml Levothyroxine Sodium (Synthroid) 100 mcg PO ACBREAKFAST [facility] [place] Last Admin: 10/18/18 07:37 Dose: 100 mcg Levothyroxine Sodium (Levothyroxine) 25 mcg PO ONETIME ONE Stop: 10/18/18 08:01 Last Admin: 10/18/18 09:27 Dose: 25 mcg Lidocaine HCl (Xylocaine 2% Jelly) 10 ml MUCMEM ONETIME ONE Stop: 10/01/18 21:56 Last Admin: 10/01/18 22:04 Dose: 10 ml Lidocaine HCl (Xylocaine 2% Jelly) 10 ml MUCMEM ONETIME ONE Stop: 10/07/18 11:31 Last Admin: 10/07/18 13:49 Dose: 10 ml Lidocaine/Epinephrine (Xylocaine 1% With Epinephrine 1:100,000) Confirm Administered Dose 50 ml .ROUTE .STK-MED ONE Stop: 09/27/18 07:26 Last Admin: 09/27/18 09:40 Dose: 7 ml Loperamide HCl (Imodium) 2 mg PO QID [facility] [place] Last Admin: 10/02/18 05:13 Dose: 2 mg Loperamide HCl (Imodium) 2 mg PO QID PRN PRN Reason: DIARRHEA Last Admin: 10/15/18 08:38 Dose: 2 mg Loratadine (Claritin Reditabs) 10 mg PO DAILY [facility] [place] Last Admin: 10/18/18 09:28 Dose: 10 mg Lorazepam (Ativan) 0.5 mg IVPUSH Q4H PRN PRN Reason: Anxiety Last Admin: 10/07/18 04:13 Dose: 0.5 mg Melatonin (Melatonin) 9 mg PO BEDTIME [facility] [place] Last Admin: 10/09/18 21:33 Dose: Not Given Midazolam HCl (Versed 1 Mg/Ml) Confirm Administered Dose 2 mg .ROUTE .STK-MED ONE Stop: 09/27/18 07:08 Non-Formulary Medication (Total Parenteral Nutrition, Central) 1,000 ml .XX .Continue Order [facility] Stop: 09/29/18 12:00 Non-Formulary Medication (Total Parenteral Nutrition, Central) 1,000 ml .XX .Continue Order [facility] Stop: 09/30/18 09:00 Non-Formulary Medication (Total Parenteral Nutrition, Central) 1,000 ml .XX .Continue Order [facility] Stop: 10/15/18 10:00 Non-Formulary Medication (Total Parenteral Nutrition, Central) 1,000 ml .XX .Continue Order [facility] Stop: 10/16/18 12:00 Non-Formulary Medication (Total Parenteral Nutrition, Central) 1,000 ml .XX .Continue Order [facility] [place] Stop: 10/17/18 12:00 Non-Formulary Medication (Total Parenteral Nutrition, Central) 1,000 ml .XX .Continue Order [facility] [place] Stop: 10/19/18 08:01 Pantoprazole Sodium (Protonix Iv) 40 mg IV Q24H [facility] [place] Last Admin: 09/29/18 14:31 Dose: 40 mg Polyethylene Glycol (Miralax) 238 gm PO ONETIME ONE Stop: 09/26/18 17:01 Last Admin: 09/26/18 16:54 Dose: 238 gram Potassium Chloride (Klor-Con M20) 40 meq PO ONETIME ONE Stop: 10/06/18 10:01 Last Admin: 10/06/18 09:55 Dose: 40 meq Potassium Chloride (Klor-Con M20) 40 meq PO ONETIME ONE Stop: 10/06/18 17:46 Last Admin: 10/06/18 21:46 Dose: Not Given Potassium Chloride (Klor-Con M20) 40 meq PO ONETIME ONE Stop: 10/06/18 21:01 Last Admin: 10/06/18 21:46 Dose: 40 meq Potassium Chloride (Klor-Con M20) 40 meq PO ONETIME ONE Stop: 10/07/18 08:46 Last Admin: 10/07/18 09:00 Dose: 40 meq Potassium Chloride (Klor-Con M20) 40 meq PO ONETIME ONE Stop: 10/07/18 12:01 Last Admin: 10/07/18 11:48 Dose: 40 meq Potassium Chloride (Klor-Con M20) 40 meq PO ONETIME ONE Stop: 10/09/18 09:01 Last Admin: 10/09/18 09:07 Dose: 40 meq Potassium Chloride (Klor-Con M20) 40 meq PO ONETIME ONE Stop: 10/09/18 12:01 Last Admin: 10/09/18 12:54 Dose: 40 meq Potassium Chloride (Klor-Con M20) 40 meq PO ONETIME ONE Stop: 10/09/18 17:01 Last Admin: 10/09/18 19:34 Dose: Not Given Propofol (Diprivan 20 Ml) Confirm Administered Dose 200 mg .ROUTE .STK-MED ONE Stop: 09/27/18 07:07 Propofol (Diprivan 20 Ml) Confirm Administered Dose 200 mg .ROUTE .STK-MED ONE Stop: 09/27/18 09:05 Sodium Chloride (Saline Flush) 10 ml FLUSH ONETIME ONE Stop: 10/08/18 09:51 Last Admin: 10/08/18 10:44 Dose: 10 ml Tramadol HCl (Ultram) 50 mg PO Q4H PRN PRN Reason: Pain Last Admin: 09/27/18 15:17 Dose: 50 mg - Exam General: Reports: Alert, Oriented, Cooperative, Mild Distress Lungs: Reports: Clear to Auscultation, Normal Respiratory Effort Cardiovascular: Reports: Regular Rate, Regular Rhythm, No Murmurs GI/Abdominal Exam: Soft, Non-Tender, No Organomegaly, No Distention Extremities: Non-Tender, No Pedal Edema
[2018-10-19 12:20] VITALS: BP 80/60
[2018-10-19] MEDS ORDERED: MVI IV SCH ×3 (18:00)
[2018-10-19] MEDS ORDERED: VITAMIN K IV SCH ×3 (18:00)
[2018-10-19] MEDS ORDERED: Fat Emulsion 100 ML IV SCH (18:00)
[2018-10-19] MEDS ORDERED: SELEN IV SCH ×3 (18:00)
[2018-10-19] MEDS ORDERED: CHROMIUM IV SCH ×3 (18:00)
[2018-10-19] MEDS ORDERED: COPPER IV SCH ×3 (18:00)
[2018-10-19] MEDS ORDERED: [UNRECOGNIZED DRUG - OTHER] IV SCH ×3 (18:00)
[2018-10-19] MEDS ORDERED: MANG IV SCH ×3 (18:00)
== END 2018-10-19 14:00 | DRG 640 ==
LOC: JP.2SS 10:21 → EEVIPCON 10:21 → JP.ICU 10-02 03:00 → JP.MS 10-15 14:00
PROVIDERS: ADMIT Surgery; ATTEND Surgery
PROC: 0DJD8ZZ Inspection of Lower Intestinal Tract, Via Natural or Artificial Opening Endoscopic (ICD-10-PCS; 2018-09-26)
PROC: 0DB78ZX Excision of Stomach, Pylorus, Via Natural or Artificial Opening Endoscopic, Diagnostic (ICD-10-PCS; principal; 2018-09-27)
PROC: 30233N1 Transfusion of Nonautologous Red Blood Cells into Peripheral Vein, Percutaneous Approach (ICD-10-PCS; 2018-09-27)
PROC: 02HV33Z Insertion of Infusion Device into Superior Vena Cava, Percutaneous Approach (ICD-10-PCS; 2018-09-27)
PROC: 0DJ68ZZ Inspection of Stomach, Via Natural or Artificial Opening Endoscopic (ICD-10-PCS; 2018-09-27)
PROC: 3E0436Z Introduction of Nutritional Substance into Central Vein, Percutaneous Approach (ICD-10-PCS; 2018-09-27)
PROC: 30233N1 Transfusion of Nonautologous Red Blood Cells into Peripheral Vein, Percutaneous Approach (ICD-10-PCS; 2018-09-28)
PROC: 5A09557 Assistance with Respiratory Ventilation, Greater than 96 Consecutive Hours, Continuous Positive Airway Pressure (ICD-10-PCS; 2018-10-02)
PROC: 30233N1 Transfusion of Nonautologous Red Blood Cells into Peripheral Vein, Percutaneous Approach (ICD-10-PCS; 2018-10-08)
PROC: 30233N1 Transfusion of Nonautologous Red Blood Cells into Peripheral Vein, Percutaneous Approach (ICD-10-PCS; 2018-10-13)
DX: E46 Unspecified protein-calorie malnutrition (principal); J96.01 Acute respiratory failure with hypoxia; I63.9 Cerebral infarction, unspecified; K91.2 Postsurgical malabsorption, not elsewhere classified; T17.810A Gastric contents in other parts of respiratory tract causing asphyxiation, initial encounter; D61.818 Other pancytopenia; F05 Delirium due to known physiological condition; I95.89 Other hypotension; E86.1 Hypovolemia; Z68.20 Body mass index [BMI] 20.0-20.9, adult; E86.0 Dehydration; D53.9 Nutritional anemia, unspecified; E53.8 Deficiency of other specified B group vitamins; E55.9 Vitamin D deficiency, unspecified; E50.9 Vitamin A deficiency, unspecified; E78.2 Mixed hyperlipidemia; Z98.84 Bariatric surgery status; I12.9 Hypertensive chronic kidney disease with stage 1 through stage 4 chronic kidney disease, or unspecified chronic kidney disease; N18.3 Chronic kidney disease, stage 3 (moderate); E03.9 Hypothyroidism, unspecified; R60.9 Edema, unspecified; I25.2 Old myocardial infarction; I25.119 Atherosclerotic heart disease of native coronary artery with unspecified angina pectoris; Z86.39 Personal history of other endocrine, nutritional and metabolic disease; F17.210 Nicotine dependence, cigarettes, uncomplicated; R00.1 Bradycardia, unspecified; G93.89 Other specified disorders of brain; K52.9 Noninfective gastroenteritis and colitis, unspecified; R42 Dizziness and giddiness; D69.6 Thrombocytopenia, unspecified; E87.6 Hypokalemia; E87.70 Fluid overload, unspecified; R33.9 Retention of urine, unspecified; F43.0 Acute stress reaction; R56.9 Unspecified convulsions; I95.1 Orthostatic hypotension; N40.1 Benign prostatic hyperplasia with lower urinary tract symptoms; R33.8 Other retention of urine; Z79.82 Long term (current) use of aspirin; Z88.8 Allergy status to other drugs, medicaments and biological substances; Z91.048 Other nonmedicinal substance allergy status; Z90.49 Acquired absence of other specified parts of digestive tract; E83.42 Hypomagnesemia
CPT/HCPCS: 36415; 36430; 36600; 51701; 51702; 51798; 70450; 70450-26; 70544; 70551; 71045; 71045-26; 71046; 71275; 80053; 81001; 82607; 82728; 82803; 83735; 83880; 84100; 84132; 84439; 84443; 85018; 85025; 85027; 85651; 86140; 86850; 86900; 86901; 86920; 86922; 87070; 87081; 87205; 93005; 93306; 94640; 94660; 94762; 97110-GP; 97161-GP; 97163-GP; 97165-GO; 97530-GP; 97535-GP; A9270-GY; C1776; C9113; J0131; J1120; J1630; J1642; J1940; J1953; J1956; J2020; J2060; J2185; J2250; J2543; J2704; J3010; J3411; J3475; J3480; J3490; J7030; J7040; J7042; J7060; J7120; J7620-GY; P9016; P9047; Q9967

== ENCOUNTER 2018-10-25 10:25 | Inpatient (IN) | payer OTHER, MEDICARE ==
[2018-10-25] MEDS ORDERED: Central Total Parenteral Nutrition Bag SCH (12:15)
[2018-10-25] MEDS ORDERED: Ondansetron 4 MG Tab.DIS PO PRN (12:16)
[2018-10-25] MEDS ORDERED: Midodrine 5 MG Tab PO PRN (13:30)
[2018-10-25] MEDS ORDERED: TESTOSTERONE CYPIONATE IM SCH (13:30)
[2018-10-25] MEDS ORDERED: Nitroglycerin 0.4 MG Tab.SL SL PRN (13:30)
[2018-10-25] MEDS: Pantoprazole 40 MG Vial IVPUSH SCH (13:51)
[2018-10-25] MEDS ORDERED: Fat Emulsion 250 ML IV ONE (16:00)
[2018-10-25] MEDS: VITAMIN K IV SCH ×4 (16:30)
[2018-10-25] MEDS: [UNRECOGNIZED DRUG - OTHER] IV SCH ×4 (16:30)
[2018-10-25] MEDS: DEXTROSE 15% IV SCH ×4 (16:30)
[2018-10-25] MEDS: MVI IV SCH ×4 (16:30)
[2018-10-25] MEDS: CHROMIUM IV SCH ×4 (16:30)
[2018-10-25] MEDS: Loperamide 2 MG Cap PO SCH ×2 (16:30→21:59)
[2018-10-25] MEDS: AMINO ACIDS IV SCH ×4 (16:30)
[2018-10-25] MEDS: Lactobacillus Rhamnosus GG (Probiotic) Cap PO SCH (20:23)
[2018-10-25] MEDS: levETIRAcetam 250 MG Tab PO SCH (20:23)
[2018-10-25] MEDS: Fluticasone Propionate Nasal Spray 16 GM Bottle NASBOTH SCH (20:24)
[2018-10-25] MEDS: Atropine/Diphenoxylate 0.025-2.5 MG Tab PO SCH (20:24)
[2018-10-25] MEDS: atorvaSTATin 20 MG Tab PO SCH (20:24)
[2018-10-26] MEDS: Pantoprazole 40 MG Vial IVPUSH SCH ×2 (02:00→13:31)
[2018-10-26] MEDS ORDERED: Central Total Parenteral Nutrition Bag SCH (07:45)
[2018-10-26] MEDS: Aspirin 81 MG Tab.EC PO SCH (08:27)
[2018-10-26] MEDS: levETIRAcetam 250 MG Tab PO SCH ×2 (08:27→20:54)
[2018-10-26] MEDS: Clopidogrel 75 MG Tab PO SCH (08:28)
[2018-10-26] MEDS: Loperamide 2 MG Cap PO SCH ×4 (08:28→21:01)
[2018-10-26] MEDS: Finasteride 5 MG Tab PO SCH (08:28)
[2018-10-26] MEDS: Tamsulosin 0.4 MG Cap.ER PO SCH (08:28)
[2018-10-26] MEDS: Lactobacillus Rhamnosus GG (Probiotic) Cap PO SCH ×2 (08:28→20:54)
[2018-10-26] MEDS: Fluticasone Propionate Nasal Spray 16 GM Bottle NASBOTH SCH ×2 (08:29→20:52)
[2018-10-26] MEDS: Levothyroxine 100 MCG, Levothyroxine 25 MCG PO SCH ×2 (08:29)
[2018-10-26] MEDS: Atropine/Diphenoxylate 0.025-2.5 MG Tab PO SCH ×2 (08:32→20:55)
[2018-10-26] MEDS ORDERED: Non-Formulary Medication 1 Each (Levothyroxine [Levothyroxine] 125 MCG) PO SCH (09:00)
[2018-10-26] MEDS: Magnesium Sulfate/Water 2 GM in Premix Bag 1 BAG IV SCH ×3 (10:27→21:01)
--- NOTE | 2018-10-26 11:10 | PN ---
DATE OF SERVICE: 10/26/2018 SUBJECTIVE: Shun is a 58-year-old male, who was admitted from [facility] yesterday. He is alert and talkative. Vital signs have been stable. Oral intake was 150 as recorded. He states he has eaten more and had more of that to drink. Denies any pain. No bowel movement. He has been up ambulating. REVIEW OF SYSTEMS: Remainder of review of systems negative for any pertinent positives and negatives. OBJECTIVE: GENERAL: Shun Griffith is a 58-year-old male. He is alert and orientated. VITAL SIGNS: TPR is 98.1, 63, 16, blood pressure is 97/57. HEENT: Negative. NECK: Supple. HEART: Regular rate and rhythm. LUNGS: Clear. ABDOMEN: Soft, nontender. EXTREMITIES: Without peripheral edema. SKIN: No change in the bruising secondary to IVs. ASSESSMENT: Malnutrition, weakness, reactive hypoglycemia, acquired hypothyroidism, TPN therapy. PLAN: Continue same TPN and lipid therapy to which pharmacy is checking into vitamin D injectable, albumin 50 g IV daily added for 6 days, magnesium 2 g IV q.6 hours x72 hours. Dietary consult, Physical therapy, and Occupational therapy to evaluate and treat. Regular diet to take Imodium 2 before each meal and Lomotil p.r.n. We will evaluate p.r.n. or in a.m. Stress the importance of accurate intake and output as well as a listing of actual food intake. Kelly Parham PA-C /[id number]
[2018-10-26] MEDS: MVI IV SCH ×4 (11:20)
[2018-10-26] MEDS: CHROMIUM IV SCH ×4 (11:20)
[2018-10-26] MEDS: AMINO ACIDS IV SCH ×4 (11:20)
[2018-10-26] MEDS: [UNRECOGNIZED DRUG - OTHER] IV SCH ×4 (11:20)
[2018-10-26] MEDS: VITAMIN K IV SCH ×4 (11:20)
[2018-10-26] MEDS: DEXTROSE 15% IV SCH ×4 (11:20)
--- NOTE | 2018-10-26 12:58 | HP ---
ADMISSION DIAGNOSES: 1. Severe malnutrition. 2. Anemia. 3. Weakness. 4. Acquired hypothyroidism. 5. 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 6. Recent acute respiratory distress syndrome. 7. Urinary retention due to benign prostatic hyperplasia. 8. Reactive hypoglycemia. 9. Episodes of hypotension. 10.SP duodenal switch. 11.Unspecified surgical malabsorption. 12.B12 deficiency. 13.Vitamin D deficiency. 14.Low albumin. 15.Hypertension. 16.High cholesterol. 17.History of myocardial infarction with stent placement and coronary artery disease, chronic. 18.Chronic renal insufficiency. 19.Chronic back pain. 20.History of diabetes type 2, resolved after duodenal switch. HISTORY OF PRESENT ILLNESS: Shun Griffith is a 58-year-old male who was discharged from [facility] last week and went to acute rehab in [place]. He was transferred back to [facility] for evaluation of possible jejunostomy tube for tube feeding. Shun got back to [place]. He felt that he did not need a feeding tube. He is feeling better. Diarrhea has been once a day and he would like to give himself more time to eat on his own. PAST SURGICAL HISTORY: Duodenal switch, adenoidectomy, tonsillectomy, coronary artery stent, cholecystectomy, hernia repair. See copy of list of surgery in electronic medical record. SOCIAL HISTORY: , currently disabled. Drinks coffee, energy drinks, soda, and tea. History of smoking, but recently quit. FAMILY HISTORY: Positive for diabetes, obesity, and heart disease. REVIEW OF SYSTEMS: CONSTITUTIONAL: Weight has been stable. Continues to be weak and tired, decreased appetite. HEENT: Negative. LUNGS: No shortness of breath, cough. CARDIOVASCULAR: No chest pain, shortness of breath, fast or irregular heart beat. GI: Has had no diarrhea stools recently. This has been managed with Lomotil and Imodium. : Negative. MUSCULOSKELETAL: Chronic back pain. SKIN: Negative. He does have several areas of bruising secondary to IVs. PSYCHIATRIC: Negative. Mood and affect normal. NEUROLOGIC: Negative. Did have a seizure approximately 2 weeks ago secondary to a CVA. Remainder of review of systems negative for any pertinent positives and negatives. PHYSICAL EXAMINATION: GENERAL: Shun Griffith is a 58-year-old male. VITAL SIGNS: Height is 5 feet 5 inches, weight is 105 pounds, BMI is 17. TPR is 98.1, 63, 16, blood pressure 97/57. HEENT: Negative. NECK: Supple. HEART: Regular rate and rhythm. LUNGS: Clear. ABDOMEN: Soft, nontender. EXTREMITIES: Without peripheral edema. SKIN: Healing bruises noted from recent IV. PSYCHIATRIC: Mood and affect appropriate. NEUROLOGIC: Intact. ASSESSMENT: 1. Weakness, malnutrition, requiring TPN therapy. 2. Acquired hypothyroidism. 3. SP duodenal switch. 4. Unspecified surgical malabsorption. 5. Vitamin B deficiency. 6. Vitamin D deficiency. 7. Orthostatic hypotension. 8. Reactive hypoglycemia. 9. Diarrhea due to malabsorption. 10.SP cerebrovascular accident, thought to cause seizure as a late effect of the cerebrovascular accident. 11.SP acute respiratory distress syndrome. PLAN: 1. Continue same TPN content. Continue lipids. 2. Pharmacy was contacted and consulted in regard to giving vitamin D injectable. 3. Albumin 50 g IV daily for 6 days. 4. Magnesium 2 g IV q.6 h. for 72 hours. 5. Dietary consult. 6. Occupational therapy. 7. Physical therapy. 8. Check CBC, CMP, phos, vitamin A, vitamin D in a.m. 9. Increase oral intake. 10.We will evaluate p.r.n. or in a.m. 11.Admit as inpatient. Length of stay greater than 3 days and 3 nights. Kelly Parham PA-C /[id number]
[2018-10-26] MEDS ORDERED: Fat Emulsion 250 ML IV ONE (16:00)
[2018-10-26] MEDS: atorvaSTATin 20 MG Tab PO SCH (20:55)
[2018-10-27] MEDS: Pantoprazole 40 MG Vial IVPUSH SCH ×2 (01:12→12:26)
[2018-10-27] MEDS: Magnesium Sulfate/Water 2 GM in Premix Bag 1 BAG IV SCH ×4 (04:34→22:58)
[2018-10-27] MEDS: [UNRECOGNIZED DRUG - OTHER] IV SCH ×4 (04:36)
[2018-10-27] MEDS: CHROMIUM IV SCH ×4 (04:36)
[2018-10-27] MEDS: AMINO ACIDS IV SCH ×4 (04:36)
[2018-10-27] MEDS: MVI IV SCH ×4 (04:36)
[2018-10-27] MEDS: DEXTROSE 15% IV SCH ×4 (04:36)
[2018-10-27] MEDS: VITAMIN K IV SCH ×4 (04:36)
[2018-10-27] MEDS: Loperamide 2 MG Cap PO SCH ×4 (06:49→23:01)
[2018-10-27] MEDS: Levothyroxine 100 MCG, Levothyroxine 25 MCG PO SCH ×2 (07:17)
[2018-10-27] MEDS: Acetaminophen 325 MG Tab PO PRN ×2 (07:51→17:59)
[2018-10-27] MEDS ORDERED: Central Total Parenteral Nutrition Bag SCH (08:15)
[2018-10-27] MEDS: Tamsulosin 0.4 MG Cap.ER PO SCH (10:06)
[2018-10-27] MEDS: Fluticasone Propionate Nasal Spray 16 GM Bottle NASBOTH SCH ×2 (10:06→20:21)
[2018-10-27] MEDS: Clopidogrel 75 MG Tab PO SCH (10:06)
[2018-10-27] MEDS: Aspirin 81 MG Tab.EC PO SCH (10:06)
[2018-10-27] MEDS: Lactobacillus Rhamnosus GG (Probiotic) Cap PO SCH ×2 (10:06→20:21)
[2018-10-27] MEDS: levETIRAcetam 250 MG Tab PO SCH ×2 (10:06→20:21)
[2018-10-27] MEDS: Finasteride 5 MG Tab PO SCH (10:14)
[2018-10-27] MEDS: Atropine/Diphenoxylate 0.025-2.5 MG Tab PO SCH ×2 (10:26→20:20)
[2018-10-27] MEDS ORDERED: Testosterone Cypionate 200 MG/ML MDV IM SCH (11:00)
--- NOTE | 2018-10-27 11:19 | PN ---
DATE OF SERVICE: 10/27/2018 SUBJECTIVE: Shun's vital signs have been stable. Weight today is 105, 12.8 ounces. Oral intake recorded was 450. Urine output 575. He has had 50% of breakfast, 75% of lunch, 75% of dinner, 2 bowel movements. He reports feeling about the same. He does have a new right hip pain he thinks from the bed being too hard. Labs this morning, hemoglobin 9.3 and stable, creatinine 0.7, AST 149, slightly elevated, ALT 189, slightly elevated, and alkaline phosphatase slightly elevated. BNP is 129. Total protein is 5.1 and albumin is 2.0, up from 1.8. REVIEW OF SYSTEMS: Remainder of review of systems negative for any pertinent positives and negatives. OBJECTIVE: GENERAL: Shun Griffith is a 58-year-old male. He is alert and orientated, rubbing his right hip. VITAL SIGNS: TPR is 97.2, 62, 16, blood pressure 81/50. HEENT: Negative. NECK: Supple. HEART: Regular rate and rhythm. LUNGS: Clear. ABDOMEN: Negative. EXTREMITIES: Negative. NEUROLOGIC: Intact. PSYCHIATRIC: Mood and affect appropriate. ASSESSMENT: 1. Malnutrition. 2. Weakness. 3. Reactive hypoglycemia. 4. Acquired hypothyroidism. 5. TPN therapy. PLAN: 1. Continue same TPN and lipid therapy. 2. Vitamin D dosing oral liquid per pharmacy. 3. Physical therapy to help with prevention of pressure sores and pain. He already has Gaymar mattress on. 4. Check CBC, CMP, phosphorus, and BNP in a.m. 5. Three communication order, three med cups per hour, record at bedside. Stress the importance of accurate recording of intake and output and exact amounts and kinds of food eaten. 6. We will evaluate p.r.n. or in a.m. Kelly Parham PA-C /[id number]
[2018-10-27] MEDS ORDERED: Fat Emulsion 250 ML IV ONE (16:00)
[2018-10-27] MEDS: atorvaSTATin 20 MG Tab PO SCH (20:22)
[2018-10-27] MEDS ORDERED: AMINO ACIDS IV SCH ×4 (23:00)
[2018-10-27] MEDS ORDERED: VITAMIN K IV SCH ×4 (23:00)
[2018-10-27] MEDS ORDERED: CHROMIUM IV SCH ×4 (23:00)
[2018-10-27] MEDS ORDERED: DEXTROSE 15% IV SCH ×4 (23:00)
[2018-10-27] MEDS ORDERED: MVI IV SCH ×4 (23:00)
[2018-10-27] MEDS ORDERED: [UNRECOGNIZED DRUG - OTHER] IV SCH ×4 (23:00)
[2018-10-28] MEDS: Pantoprazole 40 MG Vial IVPUSH SCH (01:03)
[2018-10-28] MEDS: Magnesium Sulfate/Water 2 GM in Premix Bag 1 BAG IV SCH ×4 (04:25→21:39)
[2018-10-28] MEDS: Loperamide 2 MG Cap PO SCH ×4 (05:43→21:34)
[2018-10-28] MEDS: Fluticasone Propionate Nasal Spray 16 GM Bottle NASBOTH SCH ×2 (08:32→21:32)
[2018-10-28] MEDS: Clopidogrel 75 MG Tab PO SCH (08:33)
[2018-10-28] MEDS: Finasteride 5 MG Tab PO SCH (08:33)
[2018-10-28] MEDS: Aspirin 81 MG Tab.EC PO SCH (08:33)
[2018-10-28] MEDS: Tamsulosin 0.4 MG Cap.ER PO SCH (08:33)
[2018-10-28] MEDS: levETIRAcetam 250 MG Tab PO SCH ×2 (08:33→21:34)
[2018-10-28] MEDS: Levothyroxine 100 MCG, Levothyroxine 25 MCG PO SCH ×2 (08:34)
[2018-10-28] MEDS: Lactobacillus Rhamnosus GG (Probiotic) Cap PO SCH ×2 (08:34→21:32)
[2018-10-28] MEDS: Atropine/Diphenoxylate 0.025-2.5 MG Tab PO SCH ×2 (08:48→21:38)
[2018-10-28] MEDS: Acetaminophen 325 MG Tab PO PRN (09:34)
--- NOTE | 2018-10-28 09:44 | PN ---
DATE OF SERVICE: 10/28/2018 SUBJECTIVE: Shun had an oral intake of 1493, urine output 850 + 3 voids, a total of 3 soft formed bowel movements. Oral intake; breakfast 75%, lunch 90%, and dinner 50% plus he has had some snacks. Reports continued right hip pain he states when he lays on the bed. He did have physical therapy ultrasound treatment on it yesterday. There are no areas of skin breakdown. REVIEW OF SYSTEMS: Remainder of review of systems negative for any pertinent positives and negatives. OBJECTIVE: GENERAL: Shun Griffith is a 58-year-old male. VITAL SIGNS: Weight today is 108, 3.2. TPR is 97.5, 75, 16, blood pressure is 117/58. HEENT: Negative. NECK: Supple. HEART: Regular rate and rhythm. LUNGS: Clear. ABDOMEN: Negative. SKIN: There is no skin breakdown in the right hip, but there is a potential for breakdown due to extreme weight loss. EXTREMITIES: Without peripheral edema. LABORATORY DATA: Liver function tests have significantly increased, ALT 290, AST 297, and alkaline phosphatase is 317. ASSESSMENT: Elevated liver function tests, TPN therapy for severe malnutrition, weakness, reactive hypoglycemia, acquired hypothyroidism. PLAN: 1. We will consult with Dietary and pharmacy in regard to TPN and lipids with increasing liver function tests. 2. Nurse to check CBC, CMP, phos, and BNP in a.m. 3. Nursing order written for nursing measures to prevent right hip skin breakdown, either egg shell mattress or aponte's wool padding, etc. Continue to measure oral intake at bedside, set goals. This seemed to help him get enough fluids and oral intake, and we will evaluate p.r.n. or in a.m. Kelly Parham PA-C /[id number]
[2018-10-28] MEDS: Atropine/Diphenoxylate 0.025-2.5 MG Tab PO PRN (13:29)
[2018-10-28] MEDS: Pantoprazole 40 MG Tab.CR PO SCH (16:18)
[2018-10-28] MEDS: 1: AA 5%/Calcium/D15W/Lytes 1,000 ML with MVI, Adult with Vitamin K 10 ML, Chromium/Copp IV SCH ×3 (16:19)
[2018-10-28] MEDS: atorvaSTATin 20 MG Tab PO SCH (21:34)
[2018-10-29] MEDS: Magnesium Sulfate/Water 2 GM in Premix Bag 1 BAG IV SCH (03:59)
[2018-10-29] MEDS: Loperamide 2 MG Cap PO SCH ×4 (05:49→22:07)
[2018-10-29] MEDS ORDERED: Central Total Parenteral Nutrition Bag SCH (07:00)
[2018-10-29] MEDS: Pantoprazole 40 MG Tab.CR PO SCH ×2 (08:31→15:36)
[2018-10-29] MEDS: Levothyroxine 100 MCG, Levothyroxine 25 MCG PO SCH ×2 (08:32)
[2018-10-29] MEDS: Lactobacillus Rhamnosus GG (Probiotic) Cap PO SCH ×2 (08:33→20:58)
[2018-10-29] MEDS: Aspirin 81 MG Tab.EC PO SCH (08:34)
[2018-10-29] MEDS: Tamsulosin 0.4 MG Cap.ER PO SCH (08:34)
[2018-10-29] MEDS: levETIRAcetam 250 MG Tab PO SCH ×2 (08:35→20:58)
[2018-10-29] MEDS: Atropine/Diphenoxylate 0.025-2.5 MG Tab PO SCH ×2 (08:36→20:58)
[2018-10-29] MEDS: Clopidogrel 75 MG Tab PO SCH (08:36)
[2018-10-29] MEDS: Finasteride 5 MG Tab PO SCH (08:37)
[2018-10-29] MEDS: Fluticasone Propionate Nasal Spray 16 GM Bottle NASBOTH SCH ×3 (09:45→20:58)
[2018-10-29] MEDS: 1: AA 5%/Calcium/D15W/Lytes 1,000 ML with MVI, Adult with Vitamin K 10 ML, Chromium/Copp IV SCH ×3 (11:30)
[2018-10-29] MEDS: Atropine/Diphenoxylate 0.025-2.5 MG Tab PO PRN (13:37)
[2018-10-29] MEDS ORDERED: Fat Emulsion 100 ML IV SCH (16:00)
[2018-10-29] MEDS: atorvaSTATin 20 MG Tab PO SCH (20:59)
[2018-10-30] MEDS: Loperamide 2 MG Cap PO SCH ×5 (06:00→21:20)
[2018-10-30] MEDS: Levothyroxine 100 MCG, Levothyroxine 25 MCG PO SCH ×2 (08:30)
[2018-10-30] MEDS: Pantoprazole 40 MG Tab.CR PO SCH ×2 (08:30→16:03)
[2018-10-30] MEDS: 1: AA 5%/Calcium/D15W/Lytes 1,000 ML with MVI, Adult with Vitamin K 10 ML, Chromium/Copp IV SCH ×6 (10:15→12:40)
[2018-10-30] MEDS: Lactobacillus Rhamnosus GG (Probiotic) Cap PO SCH ×2 (10:18→21:20)
[2018-10-30] MEDS: Fluticasone Propionate Nasal Spray 16 GM Bottle NASBOTH SCH ×2 (10:19→21:21)
[2018-10-30] MEDS: Tamsulosin 0.4 MG Cap.ER PO SCH (10:19)
[2018-10-30] MEDS: Clopidogrel 75 MG Tab PO SCH (10:20)
[2018-10-30] MEDS: levETIRAcetam 250 MG Tab PO SCH ×2 (10:20→21:21)
[2018-10-30] MEDS: Aspirin 81 MG Tab.EC PO SCH (10:20)
[2018-10-30] MEDS: Finasteride 5 MG Tab PO SCH (10:21)
[2018-10-30] MEDS: Atropine/Diphenoxylate 0.025-2.5 MG Tab PO SCH ×2 (10:24→21:20)
[2018-10-30] MEDS ORDERED: Furosemide 20 MG Tab PO ONE (13:00)
[2018-10-30] MEDS: Atropine/Diphenoxylate 0.025-2.5 MG Tab PO PRN (14:09)
[2018-10-30] MEDS: atorvaSTATin 20 MG Tab PO SCH (21:21)
[2018-10-31] MEDS ORDERED: 1: AA 5%/Calcium/D15W/Lytes 1,000 ML with MVI, Adult with Vitamin K 10 ML, Chromium/Copp IV SCH ×3 (04:00)
[2018-10-31] MEDS: Loperamide 2 MG Cap PO SCH ×4 (06:05→21:26)
[2018-10-31] MEDS ORDERED: Central Total Parenteral Nutrition Bag SCH (07:15)
[2018-10-31] MEDS: Pantoprazole 40 MG Tab.CR PO SCH ×2 (07:28→15:31)
[2018-10-31] MEDS: Levothyroxine 100 MCG, Levothyroxine 25 MCG PO SCH ×2 (07:28)
--- NOTE | 2018-10-31 08:11 | PN ---
DATE OF SERVICE: 10/29/2018 HISTORY OF PRESENT ILLNESS: Shun states he is feeling better, thinks he is ready to go home. Oral intake was 1430. Urine output was 850. He stated he had 3 bowel movements that were semi- solid. He ate 100%, 75%, and 100% of meals. Denies any pain, nausea, or vomiting. He has been ambulating and, per nursing report, getting stronger. LABORATORY DATA: Labs this morning, hemoglobin went from 9.1 to 8.5, BUN 27, creatinine 0.5, calcium is 8. Liver function tests decreased with holding the AST 290 to 120, ALT 297 to 189, alkaline phos 317 to 287. Total protein 5, albumin 2.2. REVIEW OF SYSTEMS: Remainder of all 12 systems are negative for any pertinent positives and negatives. The right hip pain he states is better. They put more air in the Gaymar mattress. He did have trace swelling in his lower extremities, he said, after sitting in the chair most of the day. OBJECTIVE: GENERAL: Shun Griffith is a 58-year-old male. He is alert and orientated. VITAL SIGNS: Weight is 111 pounds and 9.6 ounces. TPR is 97.1, 76, 16, blood pressure 102/57. HEENT: Negative. NECK: Supple. HEART: Regular rate and rhythm. LUNGS: Clear. ABDOMEN: Soft, nontender. EXTREMITIES: Reveal no peripheral edema this morning. NEUROLOGIC: Intact. ASSESSMENT: 1. Elevated liver function tests, most likely secondary to TPN and lipids. 2. TPN therapy for severe malnutrition. 3. Weakness. 4. Reactive hypoglycemia. 5. Acquired hypothyroidism. 6. Status post duodenal switch, weight loss surgery. 7. Vitamin D deficiency. 8. Vitamin B deficiency. 9. Unspecified surgical malabsorption. 10.Diarrhea secondary to malabsorption. PLAN: 1. New lipid orders to be implemented today. 2. Continue same TPN rate and content. 3. Check CBC, CMP, mag, phos, and BNP in a.m. 4. Continue accurate intake and output at bedside. 5. Continue ambulation. 6. We will evaluate p.r.n. or in a.m. Kelly Parham PA-C /[id number]
[2018-10-31] MEDS: Aspirin 81 MG Tab.EC PO SCH (08:29)
[2018-10-31] MEDS: Tamsulosin 0.4 MG Cap.ER PO SCH (08:29)
[2018-10-31] MEDS: Lactobacillus Rhamnosus GG (Probiotic) Cap PO SCH ×2 (08:29→21:27)
[2018-10-31] MEDS: Fluticasone Propionate Nasal Spray 16 GM Bottle NASBOTH SCH ×2 (08:29→21:27)
[2018-10-31] MEDS: Clopidogrel 75 MG Tab PO SCH (08:30)
[2018-10-31] MEDS: Finasteride 5 MG Tab PO SCH (08:30)
[2018-10-31] MEDS: Atropine/Diphenoxylate 0.025-2.5 MG Tab PO SCH ×2 (08:34→21:32)
[2018-10-31] MEDS: Magnesium Sulfate/Water 2 GM in Premix Bag 1 BAG IV SCH ×3 (08:34→21:26)
[2018-10-31] MEDS: levETIRAcetam 250 MG Tab PO SCH ×2 (08:34→21:26)
--- NOTE | 2018-10-31 08:44 | PN ---
DATE OF SERVICE: 10/30/2018 SUBJECTIVE: Shun had a good day with oral intake. All of it was not recorded, only the flake drier. He had 500 mL, but states he ate quite a bit. States he drank enough. He had 50% of breakfast, nothing was recorded for lunch and dinner. There were no bowel movements recorded. Vital signs were stable. Lab tests revealed a hemoglobin of 7.9, calcium of 8.2. Liver function tests remain to be elevated. REVIEW OF SYSTEMS: Remainder of review of systems negative for any pertinent positives and negatives. OBJECTIVE: GENERAL: Shun Griffith is a 58-year-old male. VITAL SIGNS: TPR 97.6, 76, 14, blood pressure 109/61. HEENT: Negative. NECK: Supple. HEART: Regular rate and rhythm. LUNGS: Clear. ABDOMEN: Soft, nontender. EXTREMITIES: Without peripheral edema. ASSESSMENT: 1. Elevated liver function tests. 2. TPN therapy for severe malnutrition. 3. Weakness. 4. Reactive hypoglycemia. 5. Acquired hypothyroidism. 6. Duodenal switch. 7. Unspecified surgical malabsorption. 8. Diarrhea secondary to malabsorption. 9. Vitamin B deficiency. 10.Vitamin D deficiency. PLAN: 1. Type and screen 2 units of packed red blood cells. 2. Give 1 unit of packed red blood cells. 3. Lasix 20 mg p.o. 1 hour after blood is infused. 4. Decrease TPN and lipids to 42 mL per hour. 5. Continue same content TPN and lipids. 6. Accurate intake and output. 7. Chart bowel movements. 8. Check CBC, CMP, magnesium, phos, and BNP in a.m. 9. We will evaluate p.r.n. or in a.m. Kelly Parham PA-C /[id number]
--- NOTE | 2018-10-31 09:47 | PN ---
DATE OF SERVICE: 10/31/2018 SUBJECTIVE: Galen's hemoglobin went up to 9.4. Vital signs were stable. Oral intake 656. He states everything was not recorded. Urine output was 3445. He had 100% of breakfast, 100% of lunch, and 100% of dinner, and 3 bowel movements. REVIEW OF SYSTEMS: Remainder review of systems negative for any pertinent positives and negatives. LABORATORY DATA: Labs were reviewed. Hemoglobin as stated was 9.4, magnesium 1.5. Liver function tests remained elevated. OBJECTIVE: GENERAL: Shun Griffith is a 58-year-old male. HEENT: Negative. NECK: Supple. HEART: Regular rate and rhythm. LUNGS: Clear. ABDOMEN: Negative. EXTREMITIES: Without peripheral edema. ASSESSMENT: 1. Elevated liver function tests. 2. TPN therapy for severe malnutrition. 3. Weakness. 4. Reactive hypoglycemia. 5. Acquired hypothyroidism. 6. Status post duodenal switch. 7. Unspecified surgical malabsorption. 8. Diarrhea secondary to malabsorption. 9. Vitamin B deficiency. 10.Vitamin D deficiency. PLAN: 1. Magnesium 2 g IV q.6 hours x72 hours. Continue TPN therapy at 42 mL per hour after this current bag is completed, then change to TPN same content with lipids every other day to 1 L per 12 hours. Check CBC, CMP, phos, and BNP in a.m. Discharge Planning consulted. 2. Discharge with home health care. Physical therapy and occupational therapy and TPN therapy 12 hours per day. Discharge date, 11/02/2018. 3. Thigh-high SUDARSHAN hose ordered, then we will evaluate p.r.n. or in a.m. Kelly Parham PA-C /[id number]
[2018-10-31] MEDS: Atropine/Diphenoxylate 0.025-2.5 MG Tab PO PRN (13:54)
[2018-10-31] MEDS ORDERED: MVI, Adult with Vitamin K 10 ML, Chromium/Copper/Mang/Selen/Zn 1 ML in AA 5%/Calcium/D1... IV SCH ×3 (19:00)
[2018-10-31] MEDS ORDERED: Fat Emulsion 100 ML IV SCH (19:00)
[2018-10-31] MEDS: atorvaSTATin 20 MG Tab PO SCH (21:26)
[2018-11-01] MEDS: Magnesium Sulfate/Water 2 GM in Premix Bag 1 BAG IV SCH ×4 (03:07→21:17)
[2018-11-01] MEDS: Loperamide 2 MG Cap PO SCH ×4 (06:01→21:18)
[2018-11-01] MEDS: Pantoprazole 40 MG Tab.CR PO SCH ×2 (07:52→18:33)
[2018-11-01] MEDS: Levothyroxine 100 MCG, Levothyroxine 25 MCG PO SCH ×2 (07:52)
[2018-11-01] MEDS: Aspirin 81 MG Tab.EC PO SCH (08:00)
[2018-11-01] MEDS: Finasteride 5 MG Tab PO SCH (08:00)
[2018-11-01] MEDS: Clopidogrel 75 MG Tab PO SCH (08:00)
[2018-11-01] MEDS: Lactobacillus Rhamnosus GG (Probiotic) Cap PO SCH ×2 (08:00→21:17)
[2018-11-01] MEDS: Tamsulosin 0.4 MG Cap.ER PO SCH (08:01)
[2018-11-01] MEDS: levETIRAcetam 250 MG Tab PO SCH ×2 (08:01→21:17)
[2018-11-01] MEDS: Atropine/Diphenoxylate 0.025-2.5 MG Tab PO SCH ×2 (08:08→21:16)
[2018-11-01] MEDS: Fluticasone Propionate Nasal Spray 16 GM Bottle NASBOTH SCH ×2 (08:09→21:17)
[2018-11-01] MEDS ORDERED: MVI, Adult with Vitamin K 10 ML, Chromium/Copper/Mang/Selen/Zn 1 ML in AA 5%/Calcium/D1... IV SCH ×3 (18:00)
--- NOTE | 2018-11-01 18:08 | PN ---
DATE OF SERVICE: 11/01/2018 The patient has been afebrile with stable vital signs. He is eating fairly well at this point and eating close to 100% of his meals. He does report some loose bowel movements that are quite greasy, and I think we will add some Creon, even though duodenal-switch patients may or may not get much improvement with that given the relatively short length of small bowel, where there is a common limb. Otherwise, we will run the TPN tonight, leaving at 6 p.m. and having it end at 6 a.m., and he may be ready for discharge home tomorrow with home TPN being set up. Manfred Nicolas MD /[id number]
[2018-11-01] MEDS ORDERED: Amylase/Lipase/Protease 12,000 Unit Cap.CR PO ONE (21:00)
[2018-11-01] MEDS: atorvaSTATin 20 MG Tab PO SCH (21:17)
[2018-11-02] MEDS: Magnesium Sulfate/Water 2 GM in Premix Bag 1 BAG IV SCH ×2 (02:00→09:57)
[2018-11-02] MEDS: Loperamide 2 MG Cap PO SCH ×2 (05:12→09:42)
[2018-11-02] MEDS ORDERED: Amylase/Lipase/Protease 12,000 Unit Cap.CR PO SCH (07:30)
[2018-11-02] MEDS: Levothyroxine 100 MCG, Levothyroxine 25 MCG PO SCH ×2 (07:39)
[2018-11-02] MEDS: Pantoprazole 40 MG Tab.CR PO SCH (07:39)
[2018-11-02 08:22] VITALS: BP 101/54
[2018-11-02] MEDS: Fluticasone Propionate Nasal Spray 16 GM Bottle NASBOTH SCH (09:38)
[2018-11-02] MEDS: Aspirin 81 MG Tab.EC PO SCH (09:41)
[2018-11-02] MEDS: Lactobacillus Rhamnosus GG (Probiotic) Cap PO SCH (09:41)
[2018-11-02] MEDS: Tamsulosin 0.4 MG Cap.ER PO SCH (09:41)
[2018-11-02] MEDS: levETIRAcetam 250 MG Tab PO SCH (09:42)
[2018-11-02] MEDS: Finasteride 5 MG Tab PO SCH (09:43)
[2018-11-02] MEDS: Clopidogrel 75 MG Tab PO SCH (09:43)
[2018-11-02] MEDS: Atropine/Diphenoxylate 0.025-2.5 MG Tab PO SCH (09:52)
--- NOTE | 2018-11-02 17:39 | DISCH ---
ADMISSION DIAGNOSES: 1. Severe malnutrition. 2. Anemia. 3. Weakness. 4. Acquired hypothyroidism. 5. SP seizure. 6. Recent cerebrovascular accident. 7. Recent acute respiratory distress syndrome. 8. Benign prostatic hypertension. 9. Reactive hypoglycemia. 10.Episodes of hypotension. 11.SP duodenal switch, unspecified surgical malabsorption. 12.B12 deficiency. 13.Vitamin D deficiency. 14.Low albumin. 15.Hypertension. 16.High cholesterol. 17.History of myocardial infarction with stent placement. 18.Coronary artery disease. 19.Chronic renal insufficiency. 20.Chronic back pain. 21.History of diabetes type 2, resolved after duodenal switch. DISCHARGE DIAGNOSES: 1. Improvement of malnutrition. 2. Anemia. 3. Weakness with TPN and lipid therapy. 4. Hypothyroidism. 5. SP seizure as late effect of cerebrovascular accident prior hospitalization. 6. Reactive hypoglycemia. 7. Hypotension, resolved. 8. SP duodenal switch, unspecified surgical malabsorption. 9. B12 deficiency. 10.Vitamin D deficiency. 11.Low albumin. 12.Hypertension. 13.Chronic renal insufficiency. 14.Chronic back pain. HISTORY: Shun Griffith is a 58-year-old male, who was admitted to [facility] on 10/25/2018 from [facility] for evaluation of possible jejunostomy tube for tube feeding. Shun was admitted. Lab tests were done and it was elected to continue with the same TPN contents and continue with lipids. Albumin 50 g IV was given daily. He received replacement of magnesium. Had dietary consult, Occupational Therapy, Physical Therapy and worked closely with the dietitian on oral intake. On 10/26/2018, labs were reevaluated; he was given oral vitamin D, advanced to a regular diet and he was scheduled to Imodium before each meal and Lomotil p.r.n. to slow down his bowel movements. On 10/27/2018, Gaymar mattress was given. Labs were rechecked. Continued to work with oral intake and recording at bedside. On 10/28/2018, liver function tests were elevated. TPN was adjusted. He is to continue with increasing oral intake. On 10/30/2018, hemoglobin was 7.9, he was given 1 unit of packed red blood cells with Lasix to follow. Magnesium was replaced on 10/31/2018 and on 11/01/2018, TPN was decreased to 42, trying to decrease it to 12 hours, 1 L and every other day of lipids. He tolerated that well and was able to be discharged to home with home health care. PHYSICAL EXAMINATION: GENERAL: Shun Griffith is a 58-year-old male, height is 5 feet 4.96 inches. Weight is 109 pounds 12.8 ounces, BMI 18.3. VITAL SIGNS: TPR is 97.4, 70, 12, blood pressure 101/54. HEENT: Negative. NECK: Supple. HEART: Regular rate and rhythm. LUNGS: Clear. ABDOMEN: Soft, nontender. EXTREMITIES: Without peripheral edema. SKIN: Without rash. NEURO: Intact. PSYCH: Mood and affect appropriate. DISPOSITION: Discharged to home. CONDITION: Stable and improving. FOLLOWUP: Followup appointment with Kelly Parham PA-C, on 11/09/2018 at 10:00 a.m. MEDICATIONS: 1. Tylenol 650 mg oral q.4 hours p.r.n. pain. 2. Creon 29452 units two capsules oral 3 times a day before meals, one month #185 refills. 3. Synthroid 125 mcg oral daily. 4. He is to resume aspirin 81 mg daily. 5. Lomotil 1 tab oral every 6 hours in addition to one daily as needed for constipation. 6. Calcium 1 tablet oral twice daily. 7. Vitamin D3 2000 international units oral daily. 8. Plavix 75 mg oral daily. 9. Vitamin B12 1000 mcg sublingual daily. 10.Proscar 5 mg oral daily. 11.Flonase 1 inhalation in each nostril twice daily. 12.Folic acid 1 mg oral daily. 13.Culturelle one capsule twice daily. 14.Imodium two tablets before each meal and at bedtime. 15.Melatonin 3 mg at bedtime. 16.Midodrine 5 mg oral twice daily. 17.Multivitamin one twice daily. 18.Nitrostat 0.4 mg sublingual as directed. 19.Protonix 40 mg oral daily. 20.Flomax 0.4 mg oral daily. 21.Testosterone cypionate 1.5 mL intramuscular every 14 days. 22.Thiamine (B1) 100 mg oral daily. 23.Zinc 50 mg daily. 24.Lipitor 20 mg oral at bedtime. 25.Keppra 500 mg oral twice daily. DIET: Usual diet as tolerated; drink 8 to 10 glasses of water a day. ACTIVITY: As tolerated. DISCHARGE INSTRUCTIONS: Follow instructions given by physical therapy. May shower. Notify provider if any fever, increased pain, nausea, or vomiting. Special instruction, TPN and lipid therapy as directed. Orders on separate order sheets. Keep a record of food and liquid intake and number bowel movements per day.
[2018-11-10] MEDS ORDERED: Testosterone Cypionate 200 MG/ML MDV IM SCH (11:00)
== END 2018-11-02 10:45 | disposition home health service (06) | DRG 641 ==
LOC: JP.SDS 10:25 → OBSVTOIN 11:00 → JP.MS 11:00
PROVIDERS: ADMIT Surgery; ATTEND Physician Assistant Medical
PROC: 30233N1 Transfusion of Nonautologous Red Blood Cells into Peripheral Vein, Percutaneous Approach (ICD-10-PCS; principal; 2018-10-30)
DX: E43 Unspecified severe protein-calorie malnutrition (principal); Z68.1 Body mass index [BMI] 19.9 or less, adult; K91.2 Postsurgical malabsorption, not elsewhere classified; I12.9 Hypertensive chronic kidney disease with stage 1 through stage 4 chronic kidney disease, or unspecified chronic kidney disease; N18.9 Chronic kidney disease, unspecified; D64.9 Anemia, unspecified; I69.998 Other sequelae following unspecified cerebrovascular disease; G40.909 Epilepsy, unspecified, not intractable, without status epilepticus; E03.9 Hypothyroidism, unspecified; Z98.84 Bariatric surgery status; E55.9 Vitamin D deficiency, unspecified; E53.8 Deficiency of other specified B group vitamins; E83.42 Hypomagnesemia; N40.1 Benign prostatic hyperplasia with lower urinary tract symptoms; R33.8 Other retention of urine; E88.09 Other disorders of plasma-protein metabolism, not elsewhere classified; Z86.39 Personal history of other endocrine, nutritional and metabolic disease; I25.2 Old myocardial infarction; I25.10 Atherosclerotic heart disease of native coronary artery without angina pectoris; Z95.5 Presence of coronary angioplasty implant and graft; E16.1 Other hypoglycemia; R19.7 Diarrhea, unspecified; R53.1 Weakness; M54.9 Dorsalgia, unspecified; G89.29 Other chronic pain; R79.89 Other specified abnormal findings of blood chemistry; M25.551 Pain in right hip; Z87.891 Personal history of nicotine dependence; Z90.49 Acquired absence of other specified parts of digestive tract; Z79.82 Long term (current) use of aspirin
CPT/HCPCS: 36415; 36430; 80053; 82306; 83735; 83880; 84100; 84590; 85027; 86850; 86900; 86901; 86920; 86922; 97035-GP; 97110-GO; 97110-GP; 97140-GP; 97161-GP; 97165-GO; 97530-GP; 97535-GP; A9270-GY; C9113; J1071; J1642; J3475; J3490; P9016; P9047

== ENCOUNTER 2019-06-22 08:09 | Day surgery (SDC) | payer OTHER, MEDICARE ==
[~2019-06-22 08:09] MED LIST: Bupivacaine 0.5% 50 ML MDV ONE; Lidocaine 1% with EPINEPHrine 1:100,000 50 ML MDV ONE
[2019-06-22] MEDS ORDERED: Dextrose 5%-Lactated Ringers 1,000 ML IV SCH (08:45)
[2019-06-22] MEDS ORDERED: ceFAZolin 2 GM in Sodium Chloride 0.9% 50 ML IV ONE (09:30)
[2019-06-22] MEDS ORDERED: fentaNYL 100 MCG/2 ML SDV ONE (11:35)
[2019-06-22] MEDS ORDERED: Propofol 200 MG/20 ML SDV ONE (11:36)
[2019-06-22] MEDS ORDERED: Midazolam 1 MG/ML 2 ML SDV ONE (11:39)
[2019-06-22 13:42] VITALS: BP 135/74; PULSE 60
--- NOTE | 2019-06-26 15:27 | OR ---
DATE OF PROCEDURE: 06/22/2019 SURGEON: Manfred Nicolas MD PREOPERATIVE DIAGNOSIS: Hematoma with overlying skin ulceration, left oliva. POSTOPERATIVE DIAGNOSIS: Hematoma with overlying skin ulceration, left oliva. OPERATIVE PROCEDURES: 1. Incision and drainage of hematoma, left oliva. 2. Placement of Unna boot to left lower leg. ANESTHESIA: Local plus IV sedation. INDICATION FOR PROCEDURE: This is a 58-year-old male presenting with a roughly 2-week history of a large hematoma located in the mid-aspect of his left oliva anteriorly. This was associated with some overlying skin ulceration, but not overt skin breakdown. The plan is to proceed with incision and drainage of this hematoma and then placement of an Unna boot. Potential risks of the procedure including bleeding and infection were reviewed, and the patient wishes to proceed. DETAILS OF PROCEDURE: The patient was taken to the operating room and placed in a supine position. IV sedation was administered, after which the left lower leg was prepped and draped. The medial aspect of the area of hematoma was then anesthetized with 1% lidocaine mixed with Marcaine. A vertical incision was made and carried down through the skin and subcutaneous tissue, and the underlying fascia. The hematoma was in a subfascial location, more or less up against the periosteum. There did not appear to be any breaks in the periosteum. The hematoma was then cultured and then evacuated. This was irrigated with Zyvox-containing saline solution until all of the fragments of the hematoma appeared to be evacuated. A 7-Israeli Yoan-Diego drain was then placed through stab wound superior to the main incision and placed in a hematoma cavity. The incision was then closed with some 4- 0 Vicryl stitch deep and a 4-0 Prolene skin stitch. Following this, the drain was fixed with 4-0 Vicryl stitch as well. Then, an Unna boot was placed from the base of the toes up to the upper calf to help provide some pressure over that area. The patient was taken to the recovery room in satisfactory condition. There were no evident complications. The patient will be seen in clinic next Wednesday for probable removal of the drain and reapplication of Unna boot. Manfred Nicolas MD /[id number]
== END 2019-06-22 14:02 | disposition home or self-care (01) ==
LOC: JP.SDS 08:09
PROVIDERS: ATTEND Surgery
DX: S80.12XA Contusion of left lower leg, initial encounter (principal); L97.829 Non-pressure chronic ulcer of other part of left lower leg with unspecified severity; I25.10 Atherosclerotic heart disease of native coronary artery without angina pectoris; I25.2 Old myocardial infarction; I13.0 Hypertensive heart and chronic kidney disease with heart failure and stage 1 through stage 4 chronic kidney disease, or unspecified chronic kidney disease; I50.9 Heart failure, unspecified; N18.9 Chronic kidney disease, unspecified; E78.5 Hyperlipidemia, unspecified; J44.9 Chronic obstructive pulmonary disease, unspecified; X58.XXXA Exposure to other specified factors, initial encounter; Z88.8 Allergy status to other drugs, medicaments and biological substances
CPT/HCPCS: 27603; 87070; 87075; 87205; J0690; J2020; J2250; J2704; J3010; J3490; J7042; J7050

== ENCOUNTER 2019-10-30 06:35 | Inpatient (IN) | payer OTHER, MEDICARE ==
[2019-10-30] MEDS ORDERED: Albuterol/Ipratropium 3.0-0.5 MG/3 ML Neb Soln NEB ONE (07:00)
[2019-10-30] MEDS ORDERED: ceFAZolin 2 GM in Premix Bag 1 BAG IV ONE ×2 (07:00→08:30)
[2019-10-30] MEDS ORDERED: Dextrose 5%-Lactated Ringers 1,000 ML IV SCH (07:00)
[2019-10-30] MEDS ORDERED: Midazolam 1 MG/ML 2 ML SDV ONE (07:12)
[2019-10-30] MEDS ORDERED: Propofol 200 MG/20 ML SDV ONE (07:12)
[2019-10-30] MEDS ORDERED: fentaNYL 100 MCG/2 ML SDV ONE (07:12)
[2019-10-30] MEDS ORDERED: Albuterol 8 GM Inhaler INH PRN (10:37)
[2019-10-30] MEDS ORDERED: Nitroglycerin 0.4 MG Tab.SL SL PRN (10:37)
[2019-10-30] MEDS: Magnesium Oxide 400 MG Tab PO SCH (11:34)
[2019-10-30] MEDS: atorvaSTATin 20 MG Tab PO SCH (11:34)
[2019-10-30] MEDS: Zinc (Zinc Gluconate) 50 MG Tab PO SCH (11:35)
[2019-10-30] MEDS: Loperamide 2 MG Cap PO SCH ×3 (11:35→22:59)
[2019-10-30] MEDS: Calcium Carbonate/Vitamin D3 1500 MG-400 Units Tab PO SCH ×2 (11:35→22:54)
[2019-10-30] MEDS: 1: AA 5%/Calcium/D15W/Lytes 1,000 ML with MVI, Adult with Vitamin K 10 ML, Chromium/Copp IV SCH ×6 (11:54→22:53)
[2019-10-30] MEDS ORDERED: Pantoprazole 40 MG Tab.CR PO SCH (12:00)
[2019-10-30] MEDS: Atropine/Diphenoxylate 0.025-2.5 MG Tab PO SCH ×3 (12:12→23:04)
[2019-10-30] MEDS: Aspirin 81 MG Tab.EC PO SCH (12:15)
--- NOTE | 2019-10-30 14:04 | PCM.CONS ---
H&P History of Present Illness - General Date of Service: 10/30/19 Admit Problem/Dx: Admission Diagnosis/Problem Admission Diagnosis/Problem Open insertion of Godfrey central venous catheter Source of Information: Patient, Old Records, Provider, RN Notes Reviewed History Limitations: Reports: No Limitations - History of Present Illness Initial Comments - Free Text/Narative: Mr. Griffith is a 59-year-old gentleman who I have been asked to see by Dr. Nicolas for further suggestions concerning evaluation and management of hypothyroidism. He was hospitalized at this facility last year for an extended period of time because of malnutrition and diarrhea. During that hospitalization was found to have hypothyroidism and was started on thyroid replacement medication. He improved following that hospitalization but now has had ongoing difficulty with malabsorption and poor nutrition. He was admitted for placement of a central line to initiate TPN to improve nutritional status. Plan is to proceed with a revision gastric bypass surgery this week. Recent evaluation showed a TSH that was mildly elevated at 8. He reports that he has been taking his levothyroxine on a daily basis, but has not taken it fasting. Dose of levothyroxine was recently increased. - Related Data Allergies/Adverse Reactions: Allergies Allergy/AdvReac Type Severity Reaction Status Date / Time amiodarone Allergy Burning Verified 10/30/19 06:59 insulin aspart [From Novolog] Allergy Rash Verified 10/30/19 06:59 amylase [From Creon] AdvReac Nausea and Verified 10/30/19 06:59 Vomiting lipase [From Creon] AdvReac Nausea and Verified 10/30/19 06:59 Vomiting protease [From Creon] AdvReac Nausea and Verified 10/30/19 06:59 Vomiting tape AdvReac Blisters Uncoded 10/30/19 06:59 Home Medications: Home Meds Nitroglycerin [Nitrostat] 0.4 mg SL ASDIRECTED 11/16/14 [History] Multivitamin [Multivitamins] 1 each PO BID #100 tab.chew 03/19/16 [Rx] Folic Acid 1 mg PO DAILY 09/26/18 [History] Loperamide [Imodium] 4 mg PO QID 09/26/18 [History] Pantoprazole Sodium [Protonix] 40 mg PO DAILY 09/26/18 [History] Thiamine HCl [B-1] 100 mg PO DAILY 09/26/18 [History] Zinc Gluconate [Zinc] 50 mg PO DAILY 09/26/18 [History] Aspirin [Halfprin] 81 mg PO DAILY tab.ec 10/19/18 [Rx] Cholecalciferol (Vitamin D3) [Vitamin D3] 5,000 unit PO DAILY 10/25/18 [History] Cyanocobalamin (Vitamin B12) [Vitamin B12] 1,000 mcg SL DAILY 10/25/18 [History] Albuterol Sulfate [Albuterol Sulfate Hfa] 1 - 2 puff INH Q4HR PRN 06/21/19 [ History] Levothyroxine [Synthroid] 325 mcg PO DAILY@0730 06/21/19 [History] Umeclidinium Brm/Vilanterol Tr [Anoro Ellipta 62.5-25 MCG] 1 puff INH DAILY [History] Calcium Citrate/Vitamin D3 [Calcium Citrate + D] 1 tab PO BID 06/30/19 [History] Cyclobenzaprine [Flexeril] 10 mg PO TID PRN 10/26/19 [History] Diphenoxylate HCl/Atropine [Lomotil Tablet] 1 each PO QID 10/26/19 [History] Magnesium Oxide 400 mg PO DAILY 10/26/19 [History] Testosterone Cypionate [Depo-Testosterone] 1.5 ml IM Q14D 10/26/19 [History] atorvaSTATin [Lipitor] 20 mg PO DAILY 10/26/19 [History] Past Medical History HEENT History: Reports: None Cardiovascular History: Reports: Angina, CAD, High Cholesterol, Hypertension, ID , Stents Respiratory History: Reports: COPD, Sleep Apnea, SOB Other Respiratory History: sleep apnea resolved with weight loss; SOB since aspiration Gastrointestinal History: Reports: GERD Other Gastrointestinal History: GERD resolved with bariatric surgery Genitourinary History: Reports: Acute Renal Failure, Chronic Renal Insuffiency, Renal Disease Musculoskeletal History: Reports: Back Pain, Chronic, Fracture Neurological History: Reports: CVA, Seizure Endocrine/Metabolic History: Reports: Diabetes, Type II, Hypothyroidism, IDDM Other Endocrine/Metabolic History: diabetes resloved with bariatric surgery Hematologic History: Reports: Blood Transfusion(s) Immunologic History: Reports: None Dermatologic History: Reports: Venous Stasis Dermatitis Other Dermatologic History: non--healing wound left shn - Infectious Disease History Infectious Disease History: Reports: Chicken Pox, Measles, Mumps - Past Surgical History HEENT Surgical History: Reports: Adenoidectomy, Tonsillectomy Cardiovascular Surgical History: Reports: Coronary Artery Stent Respiratory Surgical History: Reports: None GI Surgical History: Reports: Bariatric Procedure, Cholecystectomy, Colonoscopy , EGD, Hernia Repair/Other Other GI Surgeries/Procedures: gastrectomy and duodenal switch February 2016 Male Surgical History: Reports: Circumcision Endocrine Surgical History: Reports: None Neurological Surgical History: Reports: None Musculoskeletal Surgical History: Reports: Other (See Below) Other Musculoskeletal Surgeries/Procedures:: 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 Denies: Fever, Chills Pulmonary: Reports: No Symptoms Cardiovascular: Reports: No Symptoms Gastrointestinal: Reports: No Symptoms Musculoskeletal: Reports: No Symptoms Skin: Reports: No Symptoms Neurological: Reports: No Symptoms Exam - Exam Exam: See Below - Vital Signs Vital Signs: Last Vital Signs Temp 96.1 F L 10/30/19 09:45 Pulse 59 L 10/30/19 09:45 Resp 8 L 10/30/19 09:45 BP 99/69 10/30/19 09:35 Pulse Ox 99 10/30/19 09:45 Weight: 107 lb 6.4 oz - Exam Quality Assessment: DVT Prophylaxis General: Alert, Oriented, Cooperative, Mild Distress Neck: Supple, Trachea Midline, +2 Carotid Pulse wo Bruit Lungs: Clear to Auscultation, Normal Respiratory Effort Cardiovascular: Regular Rate, Regular Rhythm, Normal S1, Normal S2. No: Systolic Murmur, Diastolic Murmur GI/Abdominal Exam: Soft, Non-Tender, No Organomegaly, No Distention Extremities: Non-Tender, Pedal Edema Sepsis Event Note - Evaluation Sepsis Screening Result: No Definite Risk - Focused Exam Vital Signs: Vital Signs Temp Pulse Resp BP Pulse Ox 10/30/19 09:45 96.1 F L 59 L 8 L 99 10/30/19 09:41 95.9 F L 60 10/30/19 09:35 96.1 F L 63 10 L 99/69 100 10/30/19 09:30 61 8 L 94/62 100 10/30/19 09:25 95.7 F L 61 8 L 94/60 100 10/30/19 09:20 63 8 L 97/59 L 100 10/30/19 09:15 95.9 F L 65 8 L 97/54 L 100 10/30/19 07:06 96.1 F L 96 18 108/75 100 Date Exam was Performed: 10/30/19 Time Exam was Performed: 13:58 Consult PN Assessment/Plan Procedures: Procedures ALANINE AMINO (ALT) (SGPT) (02/27/19) ASSAY ALKALINE PHOSPHATASE (02/27/19) ASSAY GLUCOSE BLOOD QUANT (11/14/18) ASSAY OF CALCIUM (11/14/18) ASSAY OF CREATININE (11/14/18) ASSAY OF MAGNESIUM (02/27/19) ASSAY OF PHOSPHORUS (02/27/19) ASSAY OF PREALBUMIN (02/27/19) ASSAY OF SERUM ALBUMIN (02/27/19) ASSAY OF TRIGLYCERIDES (02/27/19) ASSAY OF UREA NITROGEN (11/14/18) ASSAY THYROID STIM HORMONE (11/14/18) BILIRUBIN TOTAL (02/27/19) BLOOD TYPING SEROLOGIC ABO (09/26/15) BLOOD TYPING SEROLOGIC RH(D) (09/26/15) C DIFF AMPLIFIED PROBE (09/23/18) CARDIOVASCULAR STRESS TEST (07/03/19) CHEST X-RAY 2VW FRONTAL&LATL (11/20/14) COMPLETE CBC AUTOMATED (11/20/14) COMPLETE CBC W/AUTO DIFF WBC (02/27/19) COMPREHEN METABOLIC PANEL (12/19/18) CT THORAX W/DYE (12/19/18) CULTR BACTERIA EXCEPT BLOOD (06/22/19) CULTURE OTHR SPECIMN AEROBIC (06/22/19) DRAIN LOWER LEG LESION (06/22/19) ELECTROLYTE PANEL (11/14/18) EMERGENCY DEPT VISIT (09/22/18) EXTRACRANIAL BILAT STUDY (12/21/18) GLUCOSE BLOOD TEST (11/20/14) HEPATIC FUNCTION PANEL (11/23/18) HT MUSCLE IMAGE SPECT MULT (07/03/19) HYDRATION IV INFUSION INIT (04/15/16) LAP VENT/ABD HERNIA REPAIR (11/20/14) LAPAROSCOPIC CHOLECYSTECTOMY (11/20/14) METABOLIC PANEL TOTAL CA (02/27/19) OVA AND PARASITES SMEARS (09/23/18) POLYSOM ANY AGE 1-3> GISELLA (02/03/16) RBC ANTIBODY SCREEN (09/26/15) ROUTINE VENIPUNCTURE (01/24/19) SMEAR COMPLEX STAIN (09/23/18) SMEAR GRAM STAIN (06/22/19) THER/PROPH/DIAG IV INF ADDON (04/15/16) THER/PROPH/DIAG IV INF INIT (04/15/16) TRANSFERASE (AST) (SGOT) (02/27/19) TTE W/DOPPLER COMPLETE (08/09/18) TX/PRO/DX INJ NEW DRUG ADDON (04/15/16) URINALYSIS AUTO W/SCOPE (09/22/18) US EXAM ABDOM COMPLETE (01/06/19) Problem List Initiated/Reviewed/Updated: Yes Plan: ASSESSMENT AND RECOMMENDATIONS HYPOTHYROIDISM-modest elevation in TSH despite ongoing thyroid replacement therapy with levothyroxine. Recent TSH elevated at 8 and dose of levothyroxine has been increased. Patient reports taking the medication daily but has not been taking it on an empty stomach. Given recent dose increase would continue, make sure the patient is taking medication on an empty stomach. -Continue current dose of levothyroxine dose daily on an empty stomach -Do not think there is need for use of IV levothyroxine at the present time -Recheck TSH in 1 month MALNUTRITION SECONDARY TO MALABSORPTION -Management per Dr. Nicolas Requesting Provider: NERY Date Consult Requested: 10/30/19 Reason for Consult: Hypothyroidism Patient History Reviewed: Yes
[2019-10-30] MEDS ORDERED: Fat Emulsion 250 ML IV ONE (16:00)
[2019-10-30] MEDS: Dextrose 5%-Lactated Ringers 1,000 ML IV SCH (22:53)
[2019-10-30] MEDS: Indacaterol/Glycopyrrolate 1 EA Cap.W.Dev Kit of 6 IH SCH (22:54)
[2019-10-31] MEDS: Loperamide 2 MG Cap PO SCH ×4 (06:52→21:58)
[2019-10-31] MEDS: Atropine/Diphenoxylate 0.025-2.5 MG Tab PO SCH ×4 (06:58→21:57)
[2019-10-31] MEDS: 1: AA 5%/Calcium/D15W/Lytes 1,000 ML with MVI, Adult with Vitamin K 10 ML, Chromium/Copp IV SCH ×6 (07:34→17:53)
[2019-10-31] MEDS: Indacaterol/Glycopyrrolate 1 EA Cap.W.Dev Kit of 6 IH SCH ×2 (08:29→21:59)
[2019-10-31] MEDS: Magnesium Sulfate/Water 2 GM in Premix Bag 1 BAG IV SCH ×3 (08:30→19:54)
[2019-10-31] MEDS: Calcium Carbonate/Vitamin D3 1500 MG-400 Units Tab PO SCH ×2 (08:31→21:57)
[2019-10-31] MEDS: Aspirin 81 MG Tab.EC PO SCH (08:32)
[2019-10-31] MEDS: Zinc (Zinc Gluconate) 50 MG Tab PO SCH (08:32)
[2019-10-31] MEDS: atorvaSTATin 20 MG Tab PO SCH (08:32)
[2019-10-31] MEDS: Magnesium Oxide 400 MG Tab PO SCH (08:32)
[2019-10-31] MEDS: Potassium Phosphates 20 MMOLE in Sodium Chloride 0.9% 100 ML IV SCH ×3 (09:46→16:31)
[2019-10-31] MEDS: Pantoprazole 40 MG Tab.CR PO SCH (17:44)
[2019-10-31] MEDS ORDERED: Fat Emulsion 250 ML IV SCH (18:00)
[2019-11-01] MEDS: Magnesium Sulfate/Water 2 GM in Premix Bag 1 BAG IV SCH ×4 (02:07→20:16)
[2019-11-01] MEDS: 1: AA 5%/Calcium/D15W/Lytes 1,000 ML with MVI, Adult with Vitamin K 10 ML, Chromium/Copp IV SCH ×6 (04:15→15:02)
[2019-11-01] MEDS: Atropine/Diphenoxylate 0.025-2.5 MG Tab PO SCH ×4 (05:54→22:08)
[2019-11-01] MEDS: Loperamide 2 MG Cap PO SCH ×4 (05:54→22:08)
[2019-11-01] MEDS ORDERED: Central Total Parenteral Nutrition Bag SCH (08:15)
[2019-11-01] MEDS: Indacaterol/Glycopyrrolate 1 EA Cap.W.Dev Kit of 6 IH SCH ×2 (08:26→22:08)
[2019-11-01] MEDS ORDERED: Ketamine 500 MG/5 ML MDV IV SCH ×2 (08:30)
[2019-11-01] MEDS: Aspirin 81 MG Tab.EC PO SCH (08:33)
[2019-11-01] MEDS: atorvaSTATin 20 MG Tab PO SCH (08:33)
[2019-11-01] MEDS: Calcium Carbonate/Vitamin D3 1500 MG-400 Units Tab PO SCH ×2 (08:33→22:08)
[2019-11-01] MEDS: Magnesium Oxide 400 MG Tab PO SCH (08:34)
[2019-11-01] MEDS: Zinc (Zinc Gluconate) 50 MG Tab PO SCH (08:35)
[2019-11-01] MEDS: Testosterone Cypionate 200 MG/ML MDV IM SCH (11:00)
[2019-11-01] MEDS: Pantoprazole 40 MG Tab.CR PO SCH (16:11)
--- NOTE | 2019-11-01 17:35 | PN ---
DATE OF SERVICE: 11/01/2019 SUBJECTIVE: Shun is having no difficulty with his TPN. He will be having surgery tomorrow. LABORATORY DATA: Labs were reviewed. REVIEW OF SYSTEMS: Negative for any other pertinent positives and negatives. OBJECTIVE: GENERAL: Shun Griffith is a 59-year-old male. He is alert and orientated. VITAL SIGNS: TPR from 0647, 97, 78, 14, blood pressure 105/71. HEENT: Negative. NECK: Supple. HEART: Regular rate and rhythm. LUNGS: Clear. ABDOMEN: Soft, nontender. EXTREMITIES: Without peripheral edema. ASSESSMENT: 1. Status post Godfrey catheter on 10/30/2019. Manfred Nicolas MD. 2. TPN nutritional therapy. 3. Malnutrition. 4. Status post duodenal switch. 5. Chronic kidney disease. 6. Unspecified surgical malabsorption B12 deficiency, vitamin D deficiency. PLAN: Schedule and have consent signed for exploratory laparotomy with revision of duodenal ileostomy. General anesthesia, TAP block. Ketamine bolus and ketamine drip. Magnesium bolus and magnesium drip. Cefoxitin 2 g IV on-call to OR. Continue same TPN rate and content. No lipids. Check CBC, CMP, magnesium, phosphorus in a.m. Good pulmonary toilet. We will evaluate p.r.n. or in a.m. Kelly Parham PA-C /[id number]
[2019-11-01] MEDS: Dextrose 5%-Lactated Ringers 1,000 ML IV SCH (20:16)
[2019-11-02] MEDS: Magnesium Sulfate/Water 2 GM in Premix Bag 1 BAG IV SCH ×4 (01:33→23:59)
[2019-11-02] MEDS: 1: AA 5%/Calcium/D15W/Lytes 1,000 ML with MVI, Adult with Vitamin K 10 ML, Chromium/Copp IV SCH ×9 (01:37→22:28)
[2019-11-02] MEDS: Atropine/Diphenoxylate 0.025-2.5 MG Tab PO SCH ×2 (06:01→09:19)
[2019-11-02] MEDS: Loperamide 2 MG Cap PO SCH ×2 (06:01→09:19)
[2019-11-02] MEDS ORDERED: Meropenem 500 MG SDV ONE (07:02)
[2019-11-02] MEDS ORDERED: Bupivacaine 0.5% 50 ML MDV ONE (07:02)
[2019-11-02] MEDS ORDERED: Lidocaine 1% with EPINEPHrine 1:100,000 50 ML MDV ONE (07:03)
[2019-11-02] MEDS ORDERED: Ropivacaine 30 ML, dexAMETHasone 8 MG, EPINEPHrine 0.4 MG, Sodium Chloride 0.9% 47.6 ML NERVRT SCH ×4 (08:00)
[2019-11-02] MEDS ORDERED: cefOXitin 2 GM in Sodium Chloride 0.9% 50 ML IV ONE (08:00)
[2019-11-02] MEDS ORDERED: Ketamine 500 MG/5 ML MDV IV ONE (08:00)
[2019-11-02] MEDS ORDERED: Ketamine 500 MG/5 ML MDV IV SCH ×2 (08:00)
[2019-11-02] MEDS ORDERED: Ketamine 50 MG in Sodium Chloride 0.9% 49.5 ML IV SCH (08:00)
--- NOTE | 2019-11-02 08:15 | PN ---
DATE OF SERVICE: 10/31/2019 The patient has been afebrile with stable vital signs. No major problems have been noted overnight, and he has been tolerating the TPN satisfactorily. Magnesium and phosphate are marginally low, and these will be supplemented. Otherwise, we will work on increasing his activity level and continue the replenishment nutritionally with the aim to proceed with revision of the duodenoileostomy to a more proximal level this coming . Manfred Nicolas MD /[id number]
--- NOTE | 2019-11-02 08:21 | PN ---
DATE OF SERVICE: 11/02/2019 SUBJECTIVE: Keshav is n.p.o. for surgery today. TPN is running at 100. He is tolerating that well. Vital signs have been stable. Oral intake over the past 24 hours 780 and urine output 1650. REVIEW OF SYSTEMS: Remainder of review of systems negative for any pertinent positives and negatives. OBJECTIVE: GENERAL: Keshav Griffith is a 59-year-old male. VITAL SIGNS: TPR at 0016, 96.3; 96; 16; blood pressure 122/67. HEENT: Negative. NECK: Supple. HEART: Regular rate and rhythm. LUNGS: Clear. ABDOMEN: Soft, nontender. EXTREMITIES: Without peripheral edema. ASSESSMENT: 1. TPN, nutritional therapy. 2. Status post Godfrey catheter placement on 10/30/2019. 3. Malnutrition. 4. Status post duodenal switch. 5. Chronic kidney disease. 6. Unspecified surgical malabsorption. 7. B12 deficiency. 8. Vitamin D deficiency. PLAN: 1. Remain n.p.o. Orders to be written postoperatively. 2. We will evaluate p.r.n. or in a.m. Kelly Parham PA-C /[id number]
[2019-11-02] MEDS ORDERED: Ondansetron 4 MG/2 ML SDV ONE (08:39)
[2019-11-02] MEDS ORDERED: Rocuronium 50 MG/5 ML Vial ONE (08:39)
[2019-11-02] MEDS ORDERED: Neostigmine Methylsulfate 1 MG/ML 5 ML Syringe ONE (08:39)
[2019-11-02] MEDS ORDERED: Glycopyrrolate 0.2 MG/ML 5 ML MDV ONE (08:39)
[2019-11-02] MEDS ORDERED: Propofol 200 MG/20 ML SDV ONE (08:39)
[2019-11-02] MEDS ORDERED: Succinylcholine 200 MG/10 ML MDV ONE (08:39)
[2019-11-02] MEDS ORDERED: Dexamethasone 4 MG/ML SDV ONE (08:39)
[2019-11-02] MEDS ORDERED: fentaNYL 250 MCG/5 ML SDV ONE (08:39)
[2019-11-02] MEDS: Indacaterol/Glycopyrrolate 1 EA Cap.W.Dev Kit of 6 IH SCH ×3 (08:54→21:09)
[2019-11-02] MEDS ORDERED: Magnesium Sulfate 2.4 GM in Sodium Chloride 0.9% 250 ML IV ONE (09:00)
[2019-11-02] MEDS ORDERED: Magnesium Sulfate 1.5 GM in Sodium Chloride 0.9% 100 ML IV SCH (09:00)
[2019-11-02] MEDS: Calcium Carbonate/Vitamin D3 1500 MG-400 Units Tab PO SCH (09:18)
[2019-11-02] MEDS: Zinc (Zinc Gluconate) 50 MG Tab PO SCH (09:19)
[2019-11-02] MEDS: atorvaSTATin 20 MG Tab PO SCH (09:19)
[2019-11-02] MEDS: Magnesium Oxide 400 MG Tab PO SCH (09:19)
[2019-11-02] MEDS: Aspirin 81 MG Tab.EC PO SCH (10:51)
[2019-11-02] MEDS ORDERED: Lactated Ringers 1,000 ML ONE (11:06)
[2019-11-02] MEDS ORDERED: Sodium Chloride 0.9% 250 ML ONE (14:36)
[2019-11-02] MEDS ORDERED: oxyCODONE 5 MG Tab PO PRN (15:57)
[2019-11-02] MEDS ORDERED: 50% Dextrose in Water 50 ML Syringe IVPUSH PRN (15:57)
[2019-11-02] MEDS ORDERED: HYDROmorphone 0.5 MG/0.5 ML Syringe IVPUSH PRN (15:57)
[2019-11-02] MEDS ORDERED: Cyclobenzaprine 10 MG Tab PO PRN (15:57)
[2019-11-02] MEDS ORDERED: diphenhydrAMINE 50 MG/ML SDV IVPUSH PRN (15:57)
[2019-11-02] MEDS ORDERED: HYDROmorphone 1 MG/ML Syringe IV PRN (15:57)
[2019-11-02] MEDS ORDERED: Metoclopramide 10 MG/2 ML SDV IVPUSH PRN (15:57)
[2019-11-02] MEDS ORDERED: Labetalol 20 MG/4 ML Syringe IVPUSH PRN (15:57)
[2019-11-02] MEDS ORDERED: Glucagon,Human Recombinant 1 MG Vial IM PRN (15:57)
[2019-11-02] MEDS ORDERED: Dextrose 5%-Lactated Ringers 1,000 ML IV SCH (16:00)
[2019-11-02] MEDS: Ondansetron 4 MG/2 ML SDV IVPUSH PRN (17:03)
[2019-11-02] MEDS: Pantoprazole 40 MG Vial IVPUSH SCH (17:26)
[2019-11-02] MEDS: cefOXitin 2 GM in Sodium Chloride 0.9% 50 ML IV SCH (17:27)
[2019-11-02] MEDS: Acetaminophen 500 MG Tab PO SCH (17:36)
[2019-11-02] MEDS: Heparin Sodium 5,000 Units/ML Vial SUBCUT SCH (20:58)
[2019-11-02] MEDS: Gabapentin 250 MG/5 ML Solution ML 470 ML Bottle PO SCH (20:58)
[2019-11-02] MEDS: Albuterol/Ipratropium 3.0-0.5 MG/3 ML Neb Soln INH SCH ×2 (20:58→21:09)
[2019-11-02] MEDS: Insulin Lispro 100 Unit/ML 3 ML KwikPen SUBCUT PRN (22:10)
[2019-11-03] MEDS: Acetaminophen 500 MG Tab PO SCH ×3 (02:00→18:13)
[2019-11-03] MEDS: Ondansetron 4 MG/2 ML SDV IVPUSH PRN (02:52)
[2019-11-03] MEDS: 1: AA 5%/Calcium/D15W/Lytes 1,000 ML with MVI, Adult with Vitamin K 10 ML, Chromium/Copp IV SCH ×12 (04:13→19:53)
[2019-11-03] MEDS: Insulin Lispro 100 Unit/ML 3 ML KwikPen SUBCUT PRN ×2 (04:19→10:20)
[2019-11-03] MEDS ORDERED: Iopamidol 612 MG/ML 50 ML SDV PO STA (04:20)
[2019-11-03] MEDS: Magnesium Sulfate/Water 2 GM in Premix Bag 1 BAG IV SCH (05:32)
[2019-11-03] MEDS: cefOXitin 2 GM in Sodium Chloride 0.9% 50 ML IV SCH ×3 (05:36)
[2019-11-03] MEDS: Albuterol/Ipratropium 3.0-0.5 MG/3 ML Neb Soln INH SCH ×4 (07:30→20:32)
[2019-11-03] MEDS: Indacaterol/Glycopyrrolate 1 EA Cap.W.Dev Kit of 6 IH SCH ×2 (07:30→20:21)
--- NOTE | 2019-11-03 07:35 | CRLCR ---
Indication: Otto-en-Y gastric bypass revision Technique: Upper GI 3 views Comparison: None Findings/Impression: Unremarkable exam. No sign of oral contrast extravasation to suggest leak. No signs of obstruction. Dictated by Brett Werner MD @ Nov 03 2019 7:25AM Signed by Dr. Brett Werner @ Nov 03 2019 7:33AM
[2019-11-03] MEDS: Heparin Sodium 5,000 Units/ML Vial SUBCUT SCH ×2 (07:42→20:18)
[2019-11-03] MEDS ORDERED: Dextrose 5%-Lactated Ringers 1,000 ML IV SCH (07:50)
[2019-11-03] MEDS ORDERED: Central Total Parenteral Nutrition Bag SCH (08:00)
[2019-11-03] MEDS: Gabapentin 250 MG/5 ML Solution ML 470 ML Bottle PO SCH ×4 (10:20→20:17)
[2019-11-03] MEDS: Aspirin 81 MG Tab.EC PO SCH (10:24)
[2019-11-03] MEDS: Zinc (Zinc Gluconate) 50 MG Tab PO SCH (10:24)
[2019-11-03] MEDS: atorvaSTATin 20 MG Tab PO SCH (10:25)
--- NOTE | 2019-11-03 14:53 | PN ---
DATE OF SERVICE: 11/03/2019 SUBJECTIVE: Keshav is postoperative day #1. He did receive 1 unit of packed red blood cells intraoperatively. Hemoglobin was 8.4, this morning it is 7.4. Pain has been controlled. He has been up ambulating. Vital signs have been stable. REVIEW OF SYSTEMS: Remainder of review of systems negative for any pertinent positives and negatives. OBJECTIVE: GENERAL: Shun Griffith is a 59-year-old male. VITAL SIGNS: TPR 97, 97, 18, blood pressure 118/70. HEENT: Negative. NECK: Supple. HEART: Regular rate and rhythm. LUNGS: Clear. ABDOMEN: Dressings dry and intact. Abdominal binder is on. EXTREMITIES: Without peripheral edema. Gibbons catheter output is 1450. TPN continues to run at 100 mL per hour. ASSESSMENT: Exploratory laparotomy with lysis of adhesions. 1. Revision of duodenal ileostomy. 2. Small bowel resection. 3. Placement of Interceed mesh for excessive weight loss, status post duodenal switch and stricture of small bowel, mid ileum. Date of surgery: 11/02/2019. Surgeon: Manfred Nicolas MD. PLAN: 1. Give 1 unit of packed red blood cells now. 2. . 3. Check CBC, CMP, phos, and BNP in a.m. 4. Discontinue Gibbons. 5. Continue same TPN rate and content. 6. No lipids. 7. Decrease IV to TKO. 8. Continue incentive spirometer and ambulation. 9. We will evaluate p.r.n. or in the a.m. Kelly Parham PA-C /[id number]
[2019-11-03] MEDS: Pantoprazole 40 MG Vial IVPUSH SCH (18:13)
[2019-11-04] MEDS: Acetaminophen 500 MG Tab PO SCH ×3 (02:18→19:10)
[2019-11-04] MEDS: 1: AA 5%/Calcium/D15W/Lytes 1,000 ML with MVI, Adult with Vitamin K 10 ML, Chromium/Copp IV SCH ×6 (06:09→15:36)
[2019-11-04] MEDS: Albuterol/Ipratropium 3.0-0.5 MG/3 ML Neb Soln INH SCH ×4 (07:10→21:49)
[2019-11-04] MEDS: Indacaterol/Glycopyrrolate 1 EA Cap.W.Dev Kit of 6 IH SCH ×2 (07:10→21:52)
[2019-11-04] MEDS: Gabapentin 250 MG/5 ML Solution ML 470 ML Bottle PO SCH ×3 (08:25→21:50)
[2019-11-04] MEDS: Heparin Sodium 5,000 Units/ML Vial SUBCUT SCH ×2 (08:26→21:52)
[2019-11-04] MEDS: Aspirin 81 MG Tab.EC PO SCH (08:26)
[2019-11-04] MEDS: atorvaSTATin 20 MG Tab PO SCH (08:27)
[2019-11-04] MEDS: Zinc (Zinc Gluconate) 50 MG Tab PO SCH (08:27)
[2019-11-04] MEDS: Pantoprazole 40 MG Vial IVPUSH SCH ×2 (08:51→20:02)
[2019-11-04] MEDS ORDERED: Cyanocobalamin (Vitamin B12) 1,000 MCG/ML SDV IM ONE (09:00)
[2019-11-04] MEDS ORDERED: Furosemide 20 MG/2 ML VIAL IV ONE ×2 (09:00→12:30)
[2019-11-04] MEDS ORDERED: Furosemide 20 MG/2 ML VIAL IVPUSH ONE (15:38)
[2019-11-04] MEDS: hydrOXYzine HCL 100 MG/2 ML SDV IM PRN (18:44)
[2019-11-04] MEDS: Acetaminophen 500 MG Tab PO PRN (19:51)
[2019-11-05] MEDS: 1: AA 5%/Calcium/D15W/Lytes 1,000 ML with MVI, Adult with Vitamin K 10 ML, Chromium/Copp IV SCH ×9 (01:54→23:17)
[2019-11-05] MEDS: Acetaminophen 500 MG Tab PO SCH ×3 (03:00→17:50)
[2019-11-05] MEDS: Albuterol/Ipratropium 3.0-0.5 MG/3 ML Neb Soln INH SCH ×4 (06:58→20:41)
[2019-11-05] MEDS: Indacaterol/Glycopyrrolate 1 EA Cap.W.Dev Kit of 6 IH SCH ×2 (07:02→20:42)
[2019-11-05] MEDS: Heparin Sodium 5,000 Units/ML Vial SUBCUT SCH ×2 (08:28→20:41)
[2019-11-05] MEDS: Aspirin 81 MG Tab.EC PO SCH (08:28)
[2019-11-05] MEDS: Pantoprazole 40 MG Vial IVPUSH SCH ×2 (08:29→20:42)
[2019-11-05] MEDS: Zinc (Zinc Gluconate) 50 MG Tab PO SCH (08:29)
[2019-11-05] MEDS: Gabapentin 250 MG/5 ML Solution ML 470 ML Bottle PO SCH ×2 (08:29→14:28)
[2019-11-05] MEDS: atorvaSTATin 20 MG Tab PO SCH (08:29)
[2019-11-05] MEDS: hydrOXYzine HCL 100 MG/2 ML SDV IM PRN ×2 (09:20→21:08)
[2019-11-05] MEDS ORDERED: Furosemide 20 MG/2 ML VIAL IV ONE (12:00)
[2019-11-05] MEDS: Acetaminophen 500 MG Tab PO PRN (13:24)
[2019-11-06] MEDS ORDERED: Iopamidol 612 MG/ML 50 ML SDV PO STA (04:00)
[2019-11-06] MEDS: Albuterol/Ipratropium 3.0-0.5 MG/3 ML Neb Soln INH SCH ×4 (07:28→20:06)
[2019-11-06] MEDS ORDERED: Central Total Parenteral Nutrition Bag SCH (07:30)
[2019-11-06] MEDS: Indacaterol/Glycopyrrolate 1 EA Cap.W.Dev Kit of 6 IH SCH ×2 (07:31→20:02)
--- NOTE | 2019-11-06 09:06 | PN ---
DATE OF SERVICE: 11/06/2019 SUBJECTIVE: Keshav had a bowel movement this morning. He said it was hard, then loose. Hemoglobin 10.4. He did receive a total of 4 units of packed red blood cells. Reports tongue feeling swollen and sore all the way down. Upper GI was normal this morning. He does feel a little bit stronger and is drinking clear liquids, requesting something more to eat. REVIEW OF SYSTEMS: Remainder of review of systems negative for any pertinent positives and negatives. OBJECTIVE: GENERAL: Keshav Griffith is a 59-year-old male. VITAL SIGNS: TPR at 07:48, 97.4, 101, 16, blood pressure 127/75. HEENT: Negative. NECK: Supple. HEART: Regular rate and rhythm. LUNGS: Clear. ABDOMEN: Dressings dry and intact. Abdominal binder is on. EXTREMITIES: Without peripheral edema. ASSESSMENT: 1. Exploratory laparotomy with lysis of adhesions. 2. Revision of duodenal ileostomy. 3. Small bowel resection. 4. Placement of Interceed mesh. 5. Postoperative diagnosis: Excessive weight loss status post duodenal switch and stricture of small bowel, mid ileum. 6. Date of surgery: 11/02/2019. Surgeon: Manfred Nicolas MD. 7. Thrush. 8. Anemia, requiring 1 unit of packed red blood cells. PLAN: 1. Decrease TPN to 80 mL per hour same content. 2. Nystatin swish and swallow q.i.d. 3. Senna Plus 2 b.i.d. p.r.n.. 4. Colace 100 mg p.o. b.i.d. 5. Bariatric step 2 diet with no cereal. 6. Check CBC, CMP, BNP, mag, and phos in a.m. Kelly Parham PA-C /[id number]
[2019-11-06] MEDS: Heparin Sodium 5,000 Units/ML Vial SUBCUT SCH ×2 (09:11→19:59)
[2019-11-06] MEDS: Docusate Sodium 100 MG Cap PO SCH ×2 (09:12→20:01)
[2019-11-06] MEDS: Aspirin 81 MG Tab.EC PO SCH (09:12)
[2019-11-06] MEDS: Pantoprazole 40 MG Vial IVPUSH SCH ×2 (09:13→20:09)
[2019-11-06] MEDS: atorvaSTATin 20 MG Tab PO SCH (09:13)
[2019-11-06] MEDS: Zinc (Zinc Gluconate) 50 MG Tab PO SCH (09:14)
[2019-11-06] MEDS: Nystatin Susp 100,000 Unit/ML 5 ML UD Cup PO SCH ×3 (09:14→21:36)
[2019-11-06] MEDS: 1: AA 5%/Calcium/D15W/Lytes 1,000 ML with MVI, Adult with Vitamin K 10 ML, Chromium/Copp IV SCH ×3 (09:20)
--- NOTE | 2019-11-06 10:18 | CR ---
[facility] HISTORY: Postbariatric surgery FINDINGS: Patient swallowed water-soluble contrast. Upright views of the abdomen show no evidence of extravasation or obstruction. IMPRESSION: Status post bariatric surgery No extravasation or obstruction seen
--- NOTE | 2019-11-06 14:36 | PN ---
DATE OF SERVICE: 11/04/2019 The patient has been afebrile with stable vital signs and not been very active. We will need to work on pulmonary toilet and increasing activity today. The hemoglobin remained somewhat low at 7.7. We will give him 1 additional unit of packed RBCs today. We will give him a little bit of Lasix this morning and then some Lasix after the transfusion as well. We continue TPN. He complained of some increased heartburn, we will move the Protonix up to 40 mg q.12 hours. Manfred Nicolas MD /[id number]
--- NOTE | 2019-11-06 15:06 | OR ---
DATE OF PROCEDURE: 10/30/2019 SURGEON: Manfred Nicolas MD PREOPERATIVE DIAGNOSIS: Indication for central venous access. POSTOPERATIVE DIAGNOSIS: Indication for central venous access. OPERATIVE PROCEDURE: Placement of double-lumen Godfrey catheter via right internal jugular vein approach ([id number]). ANESTHESIA: Local plus IV sedation. INDICATION FOR PROCEDURE: This is a 59-year-old status post duodenal switch, with ongoing problems with malnutrition. The plan is to proceed with a Godfrey catheter placement for TPN, followed by revision of his duodenal ileostomy to a more proximal location later in the week. Potential risks of the procedure including bleeding, infection, pneumohemothorax, or injury of the vasculature with the Godfrey catheter placement were all gone over, and the patient wishes to proceed. DETAILS OF PROCEDURE: The patient was taken to the operating room and placed in a supine position. After IV sedation was administered, the upper chest and neck areas were prepped and draped. The right subclavian area was then anesthetized with 1% lidocaine mixed with Marcaine. The subclavian vein was cannulated, and we ran into the same problem we had with previous Godfrey catheter, where the wire when entering the subclavian vein could not be passed beyond the innominate subclavian vein junction. Given this, attention was taken to the right internal jugular vein at the central approach. That area was marked with ultrasound and anesthetized with 1% lidocaine. The guidewire was then placed into that site and easily passed into the superior vena cava. Some additional local was injected over the right anterior chest wall and a stab wound placed roughly 4 fingerbreadths below the clavicle, and the Godfrey catheter tunneled between the chest incision and the neck incision site, and was cut such that the catheter tip would lie in the area of the superior vena cava and right atrial junction. Over the guidewire, the introducer and peel-away catheter were then placed, and the Godfrey catheter placed without difficulty. Good in and outflow was noted through the ports, which were then flushed with heparinized saline. The jugular vein site was then closed at the skin level with 4-0 Vicryl subcuticular stitch, and the catheter site then closed at the skin level with a 3-0 nylon stitch. Dressing was applied. The patient was taken to the recovery room in satisfactory condition. There were no evident complications. Manfred Nicolas MD /[id number]
--- NOTE | 2019-11-06 15:20 | PN ---
DATE OF SERVICE: 11/05/2019 The patient has been afebrile with stable vital signs. Hemoglobin did come up a little bit with what is felt around today. We will give him 1 unit of packed RBCs followed by some Lasix. Otherwise, continue the TPN and gradually maximize his activity and work with pulmonary toilet. Oral intake is gradually improving as well. Manfred Nicolas MD /[id number]
[2019-11-06] MEDS ORDERED: 1: AA 5%/Calcium/D15W/Lytes 1,000 ML with MVI, Adult with Vitamin K 10 ML, Chromium/Copp IV SCH ×3 (21:30)
[2019-11-07] MEDS: Nystatin Susp 100,000 Unit/ML 5 ML UD Cup PO SCH ×4 (07:10→21:01)
[2019-11-07] MEDS: Indacaterol/Glycopyrrolate 1 EA Cap.W.Dev Kit of 6 IH SCH ×2 (07:17→20:36)
[2019-11-07] MEDS: Albuterol/Ipratropium 3.0-0.5 MG/3 ML Neb Soln INH SCH ×4 (07:17→20:59)
[2019-11-07] MEDS ORDERED: Ondansetron 4 MG Tab.DIS PO PRN (07:42)
[2019-11-07] MEDS ORDERED: Central Total Parenteral Nutrition Bag SCH (07:45)
[2019-11-07] MEDS: Aspirin 81 MG Tab.EC PO SCH (08:42)
[2019-11-07] MEDS: Heparin Sodium 5,000 Units/ML Vial SUBCUT SCH ×2 (08:42→20:36)
[2019-11-07] MEDS: Zinc (Zinc Gluconate) 50 MG Tab PO SCH (08:43)
[2019-11-07] MEDS: Pantoprazole 40 MG Vial IVPUSH SCH (08:43)
[2019-11-07] MEDS: atorvaSTATin 20 MG Tab PO SCH (08:43)
[2019-11-07] MEDS: Magnesium Sulfate/Water 2 GM in Premix Bag 1 BAG IV SCH ×3 (09:00→21:00)
[2019-11-07] MEDS ORDERED: 1: AA 5%/Calcium/D15W/Lytes 1,000 ML with MVI, Adult with Vitamin K 10 ML, Chromium/Copp IV SCH ×3 (10:00)
--- NOTE | 2019-11-07 12:06 | PN ---
DATE OF SERVICE: 11/07/2019 SUBJECTIVE: Shun states he is feeling better. He has had 5 bowel movements. Up, ambulating. Oral intake 1300 and urine output 825. REVIEW OF SYSTEMS: Remainder of review of systems negative for any pertinent positives and negatives. LABORATORY DATA: Labs were done and magnesium was 1.7, hemoglobin 10.2, creatinine 0.6, mag 1.7, and glucose was 97. OBJECTIVE: GENERAL: Galen Griffith is a 59-year-old male. He is alert and orientated. VITAL SIGNS: TPR at 0700, no temp; pulse 102; respirations 18; and blood pressure 108/64. HEENT: Negative. NECK: Supple. HEART: Regular rate and rhythm. LUNGS: Clear. ABDOMEN: Dressings dry and intact. Abdominal binder is on. EXTREMITIES: Actually look quite good. There is very minimal peripheral edema. He has his supportive SUDARSHAN stockings on. ASSESSMENT: 1. Exploratory laparotomy with lysis of adhesions. 2. Revision of duodenal ileostomy. 3. Small bowel resection. 4. Placement of Interceed mesh. POSTOPERATIVE DIAGNOSES: 1. Excessive weight loss, status post duodenal switch and stricture of the small bowel. Date of surgery: 11/02/2019. Surgeon: Manfred Nicolas MD. 2. Thrush. 3. Anemia, requiring 1 unit of packed red blood cells. PLAN: 1. Magnesium 2 g IV q.6 hours x72 hours. 2. Decrease TPN to 40 mL per hour. 3. Discontinue Colace and Dulcolax tablets. 4. Bariatric step 3 gastric bypass diet. 5. Good pulmonary toilet. 6. We will evaluate p.r.n. or in a.m. Kelly Parham PA-C /[id number]
[2019-11-07] MEDS: Pantoprazole 40 MG Tab.CR PO SCH (17:21)
[2019-11-07] MEDS: Calcium Carbonate 500 MG Tab.Chew PO PRN (19:33)
[2019-11-07] MEDS: Acetaminophen 500 MG Tab PO PRN (20:59)
[2019-11-08] MEDS: Magnesium Sulfate/Water 2 GM in Premix Bag 1 BAG IV SCH ×4 (04:43→21:50)
[2019-11-08] MEDS: Nystatin Susp 100,000 Unit/ML 5 ML UD Cup PO SCH ×4 (06:10→21:50)
[2019-11-08] MEDS ORDERED: Furosemide 40 MG/4 ML VIAL IVPUSH ONE ×2 (06:51→23:26)
[2019-11-08] MEDS: Indacaterol/Glycopyrrolate 1 EA Cap.W.Dev Kit of 6 IH SCH ×2 (07:14→21:49)
[2019-11-08] MEDS: Albuterol/Ipratropium 3.0-0.5 MG/3 ML Neb Soln INH SCH ×4 (07:14→21:48)
[2019-11-08] MEDS: Heparin Sodium 5,000 Units/ML Vial SUBCUT SCH ×2 (07:38→20:06)
[2019-11-08] MEDS: Pantoprazole 40 MG Tab.CR PO SCH ×2 (07:38→17:25)
[2019-11-08] MEDS ORDERED: Central Total Parenteral Nutrition Bag SCH (08:15)
[2019-11-08] MEDS: Zinc (Zinc Gluconate) 50 MG Tab PO SCH (08:32)
[2019-11-08] MEDS: atorvaSTATin 20 MG Tab PO SCH (08:32)
[2019-11-08] MEDS: Aspirin 81 MG Tab.EC PO SCH (08:32)
[2019-11-08] MEDS: Calcium Carbonate 500 MG Tab.Chew PO PRN (09:29)
--- NOTE | 2019-11-08 10:56 | PN ---
DATE OF SERVICE: 11/08/2019 SUBJECTIVE: Shun states he does feel better. He continues to get the TPN 40 mL per hour. Blood sugar was 45. He was given juice and ordered his breakfast tray early and is eating that right now. He states his pain is controlled. He has been up, ambulating, feeling better. Oral intake 2079. Urine output is 500 recorded. REVIEW OF SYSTEMS: Remainder of review of systems negative for any pertinent positives and negatives. OBJECTIVE: GENERAL: Shun Griffith is a 59-year-old male. He is sitting up in the chair. VITAL SIGNS: TPR at 07:49, 97.5; 100; 20; blood pressure 101/60, O2 is 87% on 2 L. HEENT: Negative. NECK: Supple. HEART: Regular rate and rhythm. LUNGS: Reveal decreased breath sounds. He is little bit short of breath and there are scattered rales throughout lower bases of both lungs. ABDOMEN: Dressings dry and intact. Abdominal binder is on. EXTREMITIES: With 1+ peripheral edema. He does have his thigh-high SUDARSHAN stockings on. ASSESSMENT: 1. Hypoglycemia. 2. Exploratory laparotomy with lysis of adhesions. 3. Revision of duodenal ileostomy. 4. Small bowel resection. 5. Placement of Interceed mesh. POSTOPERATIVE DIAGNOSES: 1. Excessive weight loss status post duodenal switch and stricture of the small bowel. 2. Date of surgery: 11/02/2019. Surgeon: Manfred Nicolas MD. 3. Thrush. 4. Anemia, requiring 1 unit of packed red blood cells. PLAN: Albumin 50 g 1 dose today, repeat in a.m. at 0600. Plan discharge in a.m. Lasix 40 mg IV 1 time given. Discontinue TPN. Continue good pulmonary toilet. We will evaluate p.r.n. or in a.m. Kelly Parham PA-C /[id number]
[2019-11-08] MEDS: HYDROmorphone 2 MG Tab PO PRN (21:03)
[2019-11-08] MEDS: Piperacillin/Tazobactam 3.375 GM in Sodium Chloride 0.9% 50 ML IV SCH (23:59)
[2019-11-09] MEDS: Magnesium Sulfate/Water 2 GM in Premix Bag 1 BAG IV SCH ×2 (03:43→12:05)
[2019-11-09] MEDS: Piperacillin/Tazobactam 3.375 GM in Sodium Chloride 0.9% 50 ML IV SCH (05:49)
[2019-11-09] MEDS: Nystatin Susp 100,000 Unit/ML 5 ML UD Cup PO SCH ×4 (05:49→22:24)
[2019-11-09] MEDS: Albuterol/Ipratropium 3.0-0.5 MG/3 ML Neb Soln INH SCH ×4 (07:29→20:08)
[2019-11-09] MEDS ORDERED: Furosemide 40 MG/4 ML VIAL IVPUSH ONE ×2 (07:30→19:00)
[2019-11-09] MEDS: Indacaterol/Glycopyrrolate 1 EA Cap.W.Dev Kit of 6 IH SCH ×2 (07:33→20:14)
[2019-11-09] MEDS: Aspirin 81 MG Tab.EC PO SCH (08:42)
[2019-11-09] MEDS: Heparin Sodium 5,000 Units/ML Vial SUBCUT SCH ×2 (08:43→20:12)
[2019-11-09] MEDS: Potassium Chloride 20 MEQ Tab.ER PO SCH ×3 (08:43→20:16)
[2019-11-09] MEDS: Pantoprazole 40 MG Tab.CR PO SCH ×2 (08:44→16:48)
[2019-11-09] MEDS: atorvaSTATin 20 MG Tab PO SCH (08:44)
[2019-11-09] MEDS: Zinc (Zinc Gluconate) 50 MG Tab PO SCH (08:45)
[2019-11-09] MEDS: Albuterol/Ipratropium 3.0-0.5 MG/3 ML Neb Soln INH PRN (09:08)
[2019-11-09] MEDS ORDERED: Iopamidol 755 Mg/ML 100 ML Bottle IV ONE (09:09)
[2019-11-09] MEDS ORDERED: Sodium Chloride 0.9% 100 ML IV SCH (09:15)
--- NOTE | 2019-11-09 09:40 | PCM.CONS ---
H&P History of Present Illness - General Date of Service: 11/09/19 Admit Problem/Dx: Admission Diagnosis/Problem Admission Diagnosis/Problem Open insertion of Godfrey central venous catheter Source of Information: Patient, Family, Old Records, Provider, RN Notes Reviewed History Limitations: Reports: No Limitations - History of Present Illness Initial Comments - Free Text/Narative: Mr. Griffith is a 59-year-old gentleman who was admitted to this facility approximately 10 days ago with malnutrition. I am asked to see him at this time by Dr. Nicolas for recommendations concerning further evaluation and management of progressive hypoxia during the last 24 hours. After admission Godfrey catheter was placed for management of malnutrition with TPN. On 01 November he was taken to the operating room for revision of his duodenal ileostomy. Overall he is done well since surgery until the last 24 hours. Plan had been for discharged home today but during the last 24 hours he is developed progressive hypoxic respiratory failure. Chest x-ray shows evidence of bilateral infiltrates versus fluid. CT scan of the chest with PE protocol shows no evidence of pulmonary emboli but does show alveolar and interstitial fluid. Differential includes pulmonary edema secondary to CHF, ARDS, versus infection. He had a very identical episode of respiratory failure last year at this time during a prolonged hospitalization for management of malnutrition. Was felt that he had likely experienced ARDS causing much of his hypoxia at that time. Abdomen Pain Score (Numeric/FACES): 3 - Related Data Allergies/Adverse Reactions: Allergies Allergy/AdvReac Type Severity Reaction Status Date / Time amiodarone Allergy Burning Verified 10/30/19 06:59 insulin aspart [From Novolog] Allergy Rash Verified 10/30/19 06:59 amylase [From Creon] AdvReac Nausea and Verified 10/30/19 06:59 Vomiting lipase [From Creon] AdvReac Nausea and Verified 10/30/19 06:59 Vomiting protease [From Creon] AdvReac Nausea and Verified 10/30/19 06:59 Vomiting tape AdvReac Blisters Uncoded 10/30/19 06:59 Home Medications: Home Meds Nitroglycerin [Nitrostat] 0.4 mg SL ASDIRECTED 11/16/14 [History] Multivitamin [Multivitamins] 1 each PO BID #100 tab.chew 03/19/16 [Rx] Folic Acid 1 mg PO DAILY 09/26/18 [History] Loperamide [Imodium] 4 mg PO QID 09/26/18 [History] Pantoprazole Sodium [Protonix] 40 mg PO DAILY 09/26/18 [History] Thiamine HCl [B-1] 100 mg PO DAILY 09/26/18 [History] Zinc Gluconate [Zinc] 50 mg PO DAILY 09/26/18 [History] Aspirin [Halfprin] 81 mg PO DAILY tab.ec 10/19/18 [Rx] Cholecalciferol (Vitamin D3) [Vitamin D3] 5,000 unit PO DAILY 10/25/18 [History] Cyanocobalamin (Vitamin B12) [Vitamin B12] 1,000 mcg SL DAILY 10/25/18 [History] Albuterol Sulfate [Albuterol Sulfate Hfa] 1 - 2 puff INH Q4HR PRN 06/21/19 [ History] Levothyroxine [Synthroid] 325 mcg PO DAILY@0730 06/21/19 [History] Umeclidinium Brm/Vilanterol Tr [Anoro Ellipta 62.5-25 MCG] 1 puff INH DAILY [History] Calcium Citrate/Vitamin D3 [Calcium Citrate + D] 1 tab PO BID 06/30/19 [History] Cyclobenzaprine [Flexeril] 10 mg PO TID PRN 10/26/19 [History] Diphenoxylate HCl/Atropine [Lomotil Tablet] 1 each PO QID 10/26/19 [History] Magnesium Oxide 400 mg PO DAILY 10/26/19 [History] Testosterone Cypionate [Depo-Testosterone] 1.5 ml IM Q14D 10/26/19 [History] atorvaSTATin [Lipitor] 20 mg PO DAILY 10/26/19 [History] Past Medical History HEENT History: Reports: None Cardiovascular History: Reports: Angina, CAD, High Cholesterol, Hypertension, OR , Stents Respiratory History: Reports: COPD, Sleep Apnea, SOB Other Respiratory History: sleep apnea resolved with weight loss; SOB since aspiration Gastrointestinal History: Reports: GERD Other Gastrointestinal History: GERD resolved with bariatric surgery Genitourinary History: Reports: Acute Renal Failure, Chronic Renal Insuffiency, Renal Disease Musculoskeletal History: Reports: Back Pain, Chronic, Fracture Neurological History: Reports: CVA, Seizure Endocrine/Metabolic History: Reports: Diabetes, Type II, Hypothyroidism, IDDM Other Endocrine/Metabolic History: diabetes resloved with bariatric surgery Hematologic History: Reports: Blood Transfusion(s) Immunologic History: Reports: None Dermatologic History: Reports: Venous Stasis Dermatitis Other Dermatologic History: non--healing wound left shn - Infectious Disease History Infectious Disease History: Reports: Chicken Pox, Measles, Mumps - Past Surgical History HEENT Surgical History: Reports: Adenoidectomy, Tonsillectomy Cardiovascular Surgical History: Reports: Coronary Artery Stent Respiratory Surgical History: Reports: None GI Surgical History: Reports: Bariatric Procedure, Cholecystectomy, Colonoscopy , EGD, Hernia Repair/Other Other GI Surgeries/Procedures: gastrectomy and duodenal switch February 2016 Male Surgical History: Reports: Circumcision Endocrine Surgical History: Reports: None Neurological Surgical History: Reports: None Musculoskeletal Surgical History: Reports: Other (See Below) Other Musculoskeletal Surgeries/Procedures:: 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 Denies: Fever, Chills HEENT: Reports: No Symptoms Pulmonary: Reports: Shortness of Breath. Denies: Wheezing, Pleuritic Chest Pain , Cough, Sputum, Hemoptysis Cardiovascular: Reports: Dyspnea on Exertion. Denies: Chest Pain, Palpitations , Orthopnea, PND, Edema, Lightheadedness Gastrointestinal: Reports: Abdominal Pain. Denies: Diarrhea, Difficulty Swallowing, Distension, Hematemesis, Hematochezia, Melena, Nausea, Vomiting Genitourinary: Reports: No Symptoms Musculoskeletal: Reports: No Symptoms Skin: Reports: No Symptoms Psychiatric: Reports: No Symptoms Neurological: Reports: No Symptoms Hematologic/Lymphatic: Reports: No Symptoms Immunologic: Reports: No Symptoms Exam - Exam Exam: See Below - Vital Signs Vital Signs: Last Vital Signs Temp 99.7 F 11/09/19 07:00 Pulse 98 11/09/19 09:08 Resp 18 11/09/19 07:00 BP 106/57 L 11/09/19 07:00 Pulse Ox 88 L 11/09/19 08:56 Weight: 120 lb 8 oz - Exam Quality Assessment: Supplemental Oxygen, Central Line/PICC, DVT Prophylaxis General: Alert, Oriented, Cooperative, Moderate Distress Neck: Supple, Trachea Midline, +2 Carotid Pulse wo Bruit Lungs: Decreased Breath Sounds, Rales. No: Rhonchi, Rub, Wheezing Cardiovascular: Regular Rate, Regular Rhythm, Normal S1, Normal S2. No: Systolic Murmur, Diastolic Murmur GI/Abdominal Exam: Soft, No Organomegaly, Tender. No: Distended, Guarding, Rigid, Rebound Extremities: Non-Tender, No Pedal Edema - Patient Data Lab Results Last 24 hrs: Laboratory Results - last 24 hr 11/09/19 11/09/19 11/09/19 Range/Units 04:30 04:30 08:56 WBC 11.6 H (4.5-11.0) K/uL RBC 3.18 L (4.30-5.90) M/uL Hgb 9.9 L (12.0-15.0) g/dL Hct 31.4 L (40.0-54.0) % MCV 99 H (80-98) fL MCH 31 (27-31) pg MCHC 32 (32-36) % Plt Count 177 (150-400) K/uL Puncture Site Rt radial ABG pH 7.481 H (7.350-7.450) ABG pCO2 34.5 L (35.0-42.0) mmHg ABG pO2 53.4 L (75.0-100.0) mmHg ABG HCO3 25.5 (22.0-26.0) mmol/L ABG Total CO2 23.1 (23.0-27.0) mmol/L ABG O2 Saturation 87.0 L (95.0-98.0) % ABG O2 Content 12.8 L (15.0-23.0) %vol ABG Base Excess 2.6 mm/L ABG Hemoglobin 10.9 L (13.5-18.0) g/dL ABG Oxyhemoglobin 83.9 % ABG Carboxyhemoglobin 1.9 H (0.0-1.6) % ABG Methemoglobin 1.7 % Bob Test Passed O2 Delivery Device Nasal cannula Oxygen Flow Rate L Sodium 142 (140-148) mmol/L Potassium 3.6 (3.6-5.2) mmol/L Chloride 106 (100-108) mmol/L Carbon Dioxide 29 (21-32) mmol/L Anion Gap 7.1 (5.0-14.0) mmol/L BUN 29 H (7-18) mg/dL Creatinine 0.9 (0.8-1.3) mg/dL Est Cr Clr Drug Dosing 73.03 mL/min Estimated GFR (MDRD) > 60 (>60) Glucose 101 (74-106) mg/dL Calcium 7.6 L (8.5-10.1) mg/dL Phosphorus 3.3 (2.5-4.9) mg/dL Total Bilirubin 2.3 H D (0.2-1.0) mg/dL AST 36 (15-37) U/L ALT 76 (12-78) U/L Alkaline Phosphatase 89 (46-116) U/L NT-Pro-B Natriuret Pep 1036 H (5-125) pg/mL Total Protein 4.6 L (6.4-8.2) g/dL Albumin 2.4 L (3.4-5.0) g/dL Globulin 2.2 L (2.3-3.5) g/dL Albumin/Globulin Ratio 1.1 L (1.2-2.2) Result Diagrams: 11/09/19 04:30 11/09/19 04:30 Sepsis Event Note - Evaluation Sepsis Screening Result: No Definite Risk - Focused Exam Vital Signs: Vital Signs Temp Pulse Resp BP Pulse Ox Pulse Ox 11/09/19 09:08 98 11/09/19 08:56 88 L 11/09/19 07:33 88 11/09/19 07:00 99.7 F 86 18 106/57 L 87 L 11/09/19 03:00 98.6 F 97 18 108/63 90 L 11/08/19 23:00 97.0 F 93 18 98/56 L 88 L Date Exam was Performed: 11/09/19 Time Exam was Performed: 12:33 *Q Meaningful Use (ADM) - VTE Risk Assess *Q Each Risk Factor Represents 1 Point: History of prior major surgery less than 1 month, Serious lung disease including pneumonia Total Score 1 Point Risk Factors: 2 Each Risk Factor Represents 2 Points: None Total Score 2 Point Risk Factors: 0 Each Risk Factor Represents 3 Points: None Total Score 3 Point Risk Factors: 0 Each Risk Factor Represents 5 Points: None Total Score 5 Point Risk Factors: 0 Venous Thromboembolism Risk Factor Score *Q: 2 Consult PN Assessment/Plan Procedures: Procedures ALANINE AMINO (ALT) (SGPT) (02/27/19) ASSAY ALKALINE PHOSPHATASE (02/27/19) ASSAY GLUCOSE BLOOD QUANT (11/14/18) ASSAY OF CALCIUM (11/14/18) ASSAY OF CREATININE (11/14/18) ASSAY OF MAGNESIUM (02/27/19) ASSAY OF PHOSPHORUS (02/27/19) ASSAY OF PREALBUMIN (02/27/19) ASSAY OF SERUM ALBUMIN (02/27/19) ASSAY OF TRIGLYCERIDES (02/27/19) ASSAY OF UREA NITROGEN (11/14/18) ASSAY THYROID STIM HORMONE (11/14/18) BILIRUBIN TOTAL (02/27/19) BLOOD TYPING SEROLOGIC ABO (09/26/15) BLOOD TYPING SEROLOGIC RH(D) (09/26/15) C DIFF AMPLIFIED PROBE (09/23/18) CARDIOVASCULAR STRESS TEST (07/03/19) CHEST X-RAY 2VW FRONTAL&LATL (11/20/14) COMPLETE CBC AUTOMATED (11/20/14) COMPLETE CBC W/AUTO DIFF WBC (02/27/19) COMPREHEN METABOLIC PANEL (12/19/18) CT THORAX W/DYE (12/19/18) CULTR BACTERIA EXCEPT BLOOD (06/22/19) CULTURE OTHR SPECIMN AEROBIC (06/22/19) DRAIN LOWER LEG LESION (06/22/19) ELECTROLYTE PANEL (11/14/18) EMERGENCY DEPT VISIT (09/22/18) EXTRACRANIAL BILAT STUDY (12/21/18) GLUCOSE BLOOD TEST (11/20/14) HEPATIC FUNCTION PANEL (11/23/18) HT MUSCLE IMAGE SPECT MULT (07/03/19) HYDRATION IV INFUSION INIT (04/15/16) LAP VENT/ABD HERNIA REPAIR (11/20/14) LAPAROSCOPIC CHOLECYSTECTOMY (11/20/14) METABOLIC PANEL TOTAL CA (02/27/19) OVA AND PARASITES SMEARS (09/23/18) POLYSOM ANY AGE 1-3> GISELLA (02/03/16) RBC ANTIBODY SCREEN (09/26/15) ROUTINE VENIPUNCTURE (01/24/19) SMEAR COMPLEX STAIN (09/23/18) SMEAR GRAM STAIN (06/22/19) THER/PROPH/DIAG IV INF ADDON (04/15/16) THER/PROPH/DIAG IV INF INIT (04/15/16) TRANSFERASE (AST) (SGOT) (02/27/19) TTE W/DOPPLER COMPLETE (08/09/18) TX/PRO/DX INJ NEW DRUG ADDON (04/15/16) URINALYSIS AUTO W/SCOPE (09/22/18) US EXAM ABDOM COMPLETE (01/06/19) Problem List Initiated/Reviewed/Updated: Yes My Orders Last 24 Hours: My Active Orders 11/09/19 08:57 TROPONIN I [CHEM] Stat Plan: ASSESSMENT AND RECOMMENDATIONS HYPOXIC RESPIRATORY FAILURE-specific etiology not apparent on evaluation. Differential includes pulmonary edema secondary to fluid overload and CHF, ARDS , versus infection. This episode is very similar to what he experienced 1 year ago, requiring prolonged noninvasive positive pressure ventilation. The CT scan shows alveolar infiltrate versus fluid. -Noninvasive positive pressure ventilation -Consider intubation mechanical ventilation if no improvement with current management or if he has significant worsening -Furosemide 40 mg IV twice daily -Cultures pending -IV Zyvox, Zosyn, and azithromycin, pending culture results STATUS POST REVISION DUODENAL ILEOSTOMY-up until the last 24 hours had been doing well during the postoperative course -Management per Dr. Nicoals HYPOTHYROIDISM-modest elevation in TSH despite ongoing thyroid replacement therapy with levothyroxine. Recent TSH elevated at 8 and dose of levothyroxine has been increased. 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 Nicolas 1 hour of critical care time was spent in the direct management of this patient while on the medical surgical floor and after transfer to the intensive care unit. Requesting Provider: NERY Date Consult Requested: 11/09/19 Reason for Consult: Toxic respiratory failure Patient History Reviewed: Yes Notified Requestor: Yes
--- NOTE | 2019-11-09 10:20 | PN ---
DATE OF SERVICE: 11/09/2019 SUBJECTIVE: Galen had an episode when he was ambulating, his oximetry dropped to 88 while he was walking, but he did not have his oxygen on. His oxygen was put back on after he came back to his room. Chest x-ray was obtained and he was given extra Lasix and started on Zosyn prophylactically. This morning, he feels like he is less short of breath and has less fluid on board, but he is on O2 and he will take deep cleansing breaths. Dr. Manfred Nicolas, addressed his breathing this morning. He will go home on home O2. Bilirubin this morning was 2.3. BNP was 1036. Hemoglobin 9.9. At time of rounds, Galen was to get Lasix 40 mg IV, which he got. Oral potassium 40 mEq now and 20 before discharge, and to be evaluated for home O2. Nursing called, informed that Keshav was on a mask at 10 L because his oxygen decreased to 77 per pulse oximetry. Consult, Dr. Kentrell Merino, hospitalist for respiratory status. Immediately prior to calling Dr. Merino, a CT of lungs was ordered to rule out any pulmonary embolism. REVIEW OF SYSTEMS: Remainder of review of systems negative for any pertinent positives and negatives. OBJECTIVE: GENERAL: Galen was alert, orientated. VITAL SIGNS: TPR at 0700, 99.7; 86; 18; blood pressure 106/57; O2 at that time by pulse oximetry was 87% on 3 L. HEENT: Negative. NECK: Supple. HEART: Regular rate and rhythm. LUNGS: Clear. ABDOMEN: Dressings dry and intact. Abdominal binder is currently off. He feels like it is too constricting and hard to breathe. EXTREMITIES: Look much better. There is no peripheral edema in the lower extremities. He does have peripheral edema more in the hips and upper thighs. ASSESSMENT: 1. Acute respiratory distress. 2. Exploratory laparotomy with lysis of adhesion, revision of duodenal ileostomy, small bowel resection, placement of Interceed mesh for excessive weight loss, status post duodenal switch and stricture of small bowel. Date of surgery: 11/02/2019. Surgeon: Manfred Nicolas MD. 3. Thrush and anemia, requiring 1 unit of packed red blood cells. 4. Low albumin. PLAN: Hospitalist was consulted as stated above. Lasix 40 mg IV given, KCl to get 40 mEq now and 20 before discharge. Orders to be written per Remington Chou MD, hospitalist in regard to hypoxia/acute respiratory distress. We will evaluate niki Parham PA-C /[id number]
--- NOTE | 2019-11-09 10:44 | CT ---
Ang Chest CLINICAL HISTORY: Hypoxia TECHNIQUE: Thin section axial contiguous tomographic sections were taken through the chest after bolus IV iodinated contrast administration. Coronal and sagittal images were reconstructed. Auto dosage reduction and iterative reconstruction techniques employed. FINDINGS: Patient has diffuse bilateral pulmonary infiltrates superimposed over chronic interstitial disease. There are patchy areas of consolidation in both lower lobes This is most notable in the right upper lobe and left lower lobe. There are moderate bilateral pleural effusions. Pulmonary arteries are free of filling defects or definite vessel cut off. Aorta is free of aneurysm or dissection. There is atheromatous plaque in the proximal brachiocephalic vessels. IMPRESSION: Severe increasing bilateral alveolar infiltrates superimposed over moderate chronic nonspecific interstitial pneumonitis and fibrosis. Moderate bilateral pleural effusions new since prior study No evidence of pulmonary embolus
[2019-11-09] MEDS ORDERED: LORazepam 2 MG/ML SDV IVPUSH ONE (11:32)
[2019-11-09] MEDS ORDERED: LORazepam 2 MG/ML SDV ONE (11:34)
[2019-11-09] MEDS: Piperacillin/Tazobactam/Dext 3.375 GM in Premix Bag 1 BAG IV SCH ×3 (12:43→23:28)
[2019-11-09] MEDS ORDERED: LORazepam 2 MG/ML SDV IVPUSH PRN (13:10)
[2019-11-09] MEDS: Linezolid 600 MG in Premix Bag 1 BAG IV SCH ×2 (13:19→23:29)
[2019-11-09] MEDS: Azithromycin 500 MG in Sodium Chloride 0.9% 250 ML IV SCH (14:33)
--- NOTE | 2019-11-09 16:08 | CR ---
CHEST: 2 view CLINICAL HISTORY:Hypoxia COMPARISON:2019 FINDINGS: Patient has diffuse bilateral infiltrates which have increased since the prior study of 2019. Heart size is normal. Pulmonary vascular is obscured. There is some sparing of infiltrate in the right lower lobe. Impression: Diffuse increasing bilateral pulmonary infiltrates with both alveolar and interstitial pattern. Some of this is chronic
[2019-11-09] MEDS: HYDROmorphone 2 MG Tab PO PRN (21:15)
[2019-11-10] MEDS: Albuterol/Ipratropium 3.0-0.5 MG/3 ML Neb Soln INH PRN (03:49)
[2019-11-10] MEDS: HYDROmorphone 2 MG Tab PO PRN ×4 (04:03→22:25)
[2019-11-10] MEDS: Nystatin Susp 100,000 Unit/ML 5 ML UD Cup PO SCH ×5 (05:22→22:03)
[2019-11-10] MEDS: Piperacillin/Tazobactam/Dext 3.375 GM in Premix Bag 1 BAG IV SCH ×4 (05:42→23:43)
[2019-11-10] MEDS: Albuterol/Ipratropium 3.0-0.5 MG/3 ML Neb Soln INH SCH ×4 (07:05→21:00)
[2019-11-10] MEDS: Indacaterol/Glycopyrrolate 1 EA Cap.W.Dev Kit of 6 IH SCH ×2 (07:05→20:36)
[2019-11-10] MEDS: Zinc (Zinc Gluconate) 50 MG Tab PO SCH (08:11)
[2019-11-10] MEDS: Potassium Chloride 20 MEQ Tab.ER PO SCH ×3 (08:11→20:36)
[2019-11-10] MEDS: Heparin Sodium 5,000 Units/ML Vial SUBCUT SCH ×2 (08:12→20:36)
[2019-11-10] MEDS: Aspirin 81 MG Tab.EC PO SCH (08:12)
[2019-11-10] MEDS: atorvaSTATin 20 MG Tab PO SCH (08:12)
[2019-11-10] MEDS: Pantoprazole 40 MG Tab.CR PO SCH ×2 (08:12→17:22)
--- NOTE | 2019-11-10 09:23 | PCM.CONSN ---
- General Info Date of Service: 11/10/19 Subjective Update: There were no acute events overnight. Patient had tolerated the NIPPV fairly well. He does desaturate somewhat quickly when the mask is off but recovers fairly quickly. No complaints of abdominal pain unless he coughs. No nausea. Lower extremity edema is much better. Still feels bloated and full in the midsection. No fevers. Cultures negative so far. Good response to diuresis yesterday. Functional Status: Reports: Pain Controlled, Tolerating Diet - Review of Systems General: Reports: Weakness Pulmonary: Reports: Shortness of Breath - Patient Data Vitals - Most Recent: Last Vital Signs Temp 36.6 C 11/10/19 07:00 Pulse 94 11/10/19 09:00 Resp 18 11/10/19 09:00 BP 110/70 11/10/19 09:00 Pulse Ox 99 11/10/19 09:00 Weight - Most Recent: 54.658 kg I&O - Last 24 Hours: Intake & Output 11/09/19 11/10/19 11/10/19 22:59 06:59 14:59 Intake Total 590 450 Output Total 1000 700 Balance -410 -250 Lab Results Last 24 Hours: Laboratory Results - last 24 hr 11/09/19 11/09/19 11/10/19 Range/Units 08:57 12:30 03:55 WBC 11.6 H (4.5-11.0) K/uL RBC 3.22 L (4.30-5.90) M/uL Hgb 10.0 L (12.0-15.0) g/dL Hct 31.9 L (40.0-54.0) % MCV 99 H (80-98) fL MCH 31 (27-31) pg MCHC 31 L (32-36) % Plt Count 194 (150-400) K/uL Neut % (Auto) 87 H (36-66) % Lymph % (Auto) 6 L (24-44) % [place] % (Auto) 6 (2-6) % Eos % (Auto) 1 L (2-4) % Baso % (Auto) 0 (0-1) % Puncture Site Rt radial ABG pH 7.487 H (7.350-7.450) ABG pCO2 35.1 (35.0-42.0) mmHg ABG pO2 104.0 H (75.0-100.0) mmHg ABG HCO3 26.3 H (22.0-26.0) mmol/L ABG Total CO2 23.8 (23.0-27.0) mmol/L ABG O2 Saturation 97.0 (95.0-98.0) % ABG O2 Content 14.3 L (15.0-23.0) %vol ABG Base Excess 3.4 mm/L ABG Hemoglobin 10.8 L (13.5-18.0) g/dL ABG Oxyhemoglobin 93.2 % ABG Carboxyhemoglobin 1.9 H (0.0-1.6) % ABG Methemoglobin 2.0 % Bob Test Passed O2 Delivery Device Bipap Oxygen Flow Rate L Sodium (140-148) mmol/L Potassium (3.6-5.2) mmol/L Chloride (100-108) mmol/L Carbon Dioxide (21-32) mmol/L Anion Gap (5.0-14.0) mmol/L BUN (7-18) mg/dL Creatinine (0.8-1.3) mg/dL Est Cr Clr Drug Dosing mL/min Estimated GFR (MDRD) (>60) Glucose (74-106) mg/dL Calcium (8.5-10.1) mg/dL Magnesium (1.8-2.4) mg/dL Total Bilirubin (0.2-1.0) mg/dL AST (15-37) U/L ALT (12-78) U/L Alkaline Phosphatase (46-116) U/L Troponin I 0.041 (0.000-0.056) ng/mL Total Protein (6.4-8.2) g/dL Albumin (3.4-5.0) g/dL Globulin (2.3-3.5) g/dL Albumin/Globulin Ratio (1.2-2.2) 11/10/19 11/10/19 Range/Units 03:55 05:00 WBC (4.5-11.0) K/uL RBC (4.30-5.90) M/uL Hgb (12.0-15.0) g/dL Hct (40.0-54.0) % MCV (80-98) fL MCH (27-31) pg MCHC (32-36) % Plt Count (150-400) K/uL Neut % (Auto) (36-66) % Lymph % (Auto) (24-44) % [place] % (Auto) (2-6) % Eos % (Auto) (2-4) % Baso % (Auto) (0-1) % Puncture Site Rt radial ABG pH 7.434 (7.350-7.450) ABG pCO2 44.5 H (35.0-42.0) mmHg ABG pO2 100.0 (75.0-100.0) mmHg ABG HCO3 29.3 H (22.0-26.0) mmol/L ABG Total CO2 27.1 H (23.0-27.0) mmol/L ABG O2 Saturation 96.4 (95.0-98.0) % ABG O2 Content 13.3 L (15.0-23.0) %vol ABG Base Excess 5.0 mm/L ABG Hemoglobin 10.0 L (13.5-18.0) g/dL ABG Oxyhemoglobin 93.7 % ABG Carboxyhemoglobin 0.8 (0.0-1.6) % ABG Methemoglobin 2.0 % Bob Test Passed O2 Delivery Device Bipap Oxygen Flow Rate L Sodium 142 (140-148) mmol/L Potassium 3.6 (3.6-5.2) mmol/L Chloride 105 (100-108) mmol/L Carbon Dioxide 29 (21-32) mmol/L Anion Gap 7.9 (5.0-14.0) mmol/L BUN 24 H (7-18) mg/dL Creatinine 1.0 (0.8-1.3) mg/dL Est Cr Clr Drug Dosing 61.49 mL/min Estimated GFR (MDRD) > 60 (>60) Glucose 119 H (74-106) mg/dL Calcium 7.7 L (8.5-10.1) mg/dL Magnesium 2.0 (1.8-2.4) mg/dL Total Bilirubin 2.4 H (0.2-1.0) mg/dL AST 33 (15-37) U/L ALT 64 (12-78) U/L Alkaline Phosphatase 97 (46-116) U/L Troponin I (0.000-0.056) ng/mL Total Protein 4.5 L (6.4-8.2) g/dL Albumin 2.3 L (3.4-5.0) g/dL Globulin 2.2 L (2.3-3.5) g/dL Albumin/Globulin Ratio 1.1 L (1.2-2.2) Med Orders - Current: Current Medications Acetaminophen (Tylenol Extra Strength) 500 mg PO Q8H PRN PRN Reason: MILD PAIN Last Admin: 11/07/19 20:59 Dose: 500 mg Albuterol/Ipratropium (Duoneb 3.0-0.5 Mg/3 Ml) 3 ml INH QIDRT [facility] Last Admin: 11/10/19 07:05 Dose: 3 ml Albuterol/Ipratropium (Duoneb 3.0-0.5 Mg/3 Ml) 3 ml INH ASDIRECTED PRN PRN Reason: BREATHING Last Admin: 11/10/19 03:49 Dose: 3 ml Aspirin (Halfprin) 81 mg PO DAILY [facility] Last Admin: 11/10/19 08:12 Dose: 81 mg Atorvastatin Calcium (Lipitor) 20 mg PO DAILY [facility] Last Admin: 11/10/19 08:12 Dose: 20 mg Calcium Carbonate/Glycine (Tums) 1,000 mg PO Q2H PRN PRN Reason: Indigestion Last Admin: 11/08/19 09:29 Dose: 1,000 mg Cyclobenzaprine HCl (Flexeril) 10 mg PO Q8H PRN PRN Reason: Muscle Spasm Last Admin: 11/03/19 07:42 Dose: 10 mg Dextrose/Water (Dextrose 50% In Water) 50 ml IVPUSH ONETIME PRN PRN Reason: ACCUCHECK LESS THAN 70 Diphenhydramine HCl (Benadryl) 50 mg IVPUSH Q4H PRN PRN Reason: ITCHING Furosemide (Lasix) 40 mg IVPUSH Q12H [facility] Glucagon (Glucagen) 1 mg IM ONETIME PRN PRN Reason: ACCUCHECK LESS THAN 70 Glycopyrrolate/Indacaterol (Utibron Neohaler 27.5-15.6 Mcg) 0 each IH BIDRT [facility] Last Admin: 11/10/19 07:05 Dose: 1 puff Heparin Sodium (Porcine) (Heparin Lock Flush 100 Units/Ml) 500 units FLUSH ASDIRECTED PRN PRN Reason: IV Use Last Admin: 11/09/19 04:43 Dose: 500 units Heparin Sodium (Porcine) (Heparin Sodium) 5,000 units SUBCUT Q12H [facility] Last Admin: 11/10/19 08:12 Dose: 5,000 units Heparin Sodium (Porcine) (Heparin Lock Flush 100 Units/Ml) 500 units FLUSH ASDIRECTED PRN PRN Reason: line maint Hydromorphone HCl (Dilaudid) 2 - 4 mg PO Q4H PRN PRN Reason: Pain Last Admin: 11/10/19 04:03 Dose: 4 mg Hydroxyzine HCl (Vistaril) 100 mg IM Q4H PRN PRN Reason: pain Last Admin: 11/05/19 21:08 Dose: 100 mg Piperacillin/Tazobactam/ (Dextrose 3.375 gm/ Premix) 50 mls @ 100 mls/hr IV Q6H [facility] Last Admin: 11/10/19 05:42 Dose: 100 mls/hr Azithromycin 500 mg/ Sodium (Chloride) 250 mls @ 250 mls/hr IV Q24H [facility] Last Admin: 11/09/19 14:33 Dose: 250 mls/hr Linezolid 600 mg/ Premix 300 mls @ 300 mls/hr IV Q12H [facility] Last Admin: 11/09/19 23:29 Dose: 300 mls/hr Multivitamins/Minerals 10 ml/Chromium/Copper/Manganese/Seleni/Zn 1 ml/ Amino Ac/ Electrol/Dextrose/Calcium 1,011 mls @ 40 mls/hr IV .Q24H [facility] Insulin Human Lispro (Humalog) 0 unit SUBCUT Q6H PRN; Protocol PRN Reason: CORRECTIONAL DOSING Last Admin: 11/03/19 10:20 Dose: 5 units Levothyroxine Sodium 300 mcg/ (Levothyroxine Sodium 25 mcg) 325 mcg PO DAILY@ 0600 [facility] Last Admin: 11/10/19 05:42 Dose: 325 mcg Lorazepam (Ativan) 0.5 mg IVPUSH Q2H PRN PRN Reason: Anxiety Nitroglycerin (Nitrostat) 0.4 mg SL ASDIRECTED PRN PRN Reason: Chest Pain Nystatin (Mycostatin) 5 ml PO QID [facility] Last Admin: 11/10/19 05:22 Dose: Not Given Ondansetron HCl (Zofran) 4 mg IVPUSH Q4H PRN PRN Reason: Nausea/Vomiting Last Admin: 11/03/19 02:52 Dose: 4 mg Ondansetron HCl (Zofran Odt) 4 mg PO Q4H PRN PRN Reason: Nausea/Vomiting Pantoprazole Sodium (Protonix) 40 mg PO BIDAC [facility] Last Admin: 11/10/19 08:12 Dose: 40 mg Potassium Chloride (Klor-Con M20) 20 meq PO TID [facility] Last Admin: 11/10/19 08:11 Dose: 20 meq Testosterone Cypionate (Depo-Testosterone) 300 mg IM Q14D [facility] Last Admin: 11/01/19 11:00 Dose: 300 mg Zinc Gluconate (Zinc) 50 mg PO DAILY [facility] Last Admin: 11/10/19 08:11 Dose: 50 mg Discontinued Medications Acetaminophen (Tylenol Extra Strength) 1,000 mg PO Q8H [facility] Last Admin: 11/05/19 17:50 Dose: Not Given Albuterol (Ventolin Hfa) 0 gm INH Q4H PRN PRN Reason: * Albuterol/Ipratropium (Duoneb 3.0-0.5 Mg/3 Ml) 3 ml NEB ONETIME ONE Stop: 10/30/19 07:01 Last Admin: 10/30/19 07:28 Dose: 3 ml Bupivacaine HCl (Marcaine 0.5%) Confirm Administered Dose 50 ml .ROUTE .STK-MED ONE Stop: 10/30/19 06:34 Last Admin: 10/30/19 08:47 Dose: 5 ml Bupivacaine HCl (Marcaine 0.5%) Confirm Administered Dose 50 ml .ROUTE .STK-MED ONE Stop: 11/02/19 07:03 Calcium Carbonate (Caltrate 600+D 1500 Mg-400 Units) 1 tab PO BID [facility] Last Admin: 11/02/19 09:18 Dose: Not Given Ropivacaine 30 ml/Dexamethasone 8 mg/Epinephrine HCl 0.4 mg/ Sodium Chloride 47.6 ml 0 ml NERVRT ASDIRECTED [facility] Last Admin: 11/02/19 13:39 Dose: 80 syringe Cyanocobalamin (Vitamin B12) 1,000 mcg IM ONETIME ONE Stop: 11/04/19 09:01 Last Admin: 11/04/19 08:26 Dose: 1,000 mcg Dexamethasone (Dexamethasone) Confirm Administered Dose 4 mg .ROUTE .STK-MED ONE Stop: 11/02/19 08:40 Diphenoxylate HCl/Atropine (Lomotil 0.025-2.5 Mg) 1 tab PO QID [facility] Last Admin: 11/02/19 09:19 Dose: Not Given Docusate Sodium (Colace) 100 mg PO BID [facility] Last Admin: 11/06/19 20:01 Dose: Not Given Fentanyl (Sublimaze) Confirm Administered Dose 100 mcg .ROUTE .STK-MED ONE Stop: 10/30/19 07:13 Fentanyl (Sublimaze) Confirm Administered Dose 250 mcg .ROUTE .STK-MED ONE Stop: 11/02/19 08:40 Furosemide (Lasix) 10 mg IV ONETIME ONE Stop: 11/04/19 09:01 Last Admin: 11/04/19 08:51 Dose: 10 mg Furosemide (Lasix) 20 mg IV ONETIME ONE Stop: 11/04/19 12:31 Last Admin: 11/04/19 12:15 Dose: 20 mg Furosemide (Lasix) 20 mg IVPUSH ONETIME ONE Stop: 11/04/19 15:39 Last Admin: 11/04/19 15:49 Dose: 20 mg Furosemide (Lasix) 20 mg IV ONETIME ONE Stop: 11/05/19 12:01 Last Admin: 11/05/19 13:08 Dose: 20 mg Furosemide (Lasix) 40 mg IVPUSH ONETIME ONE Stop: 11/08/19 06:52 Last Admin: 11/08/19 07:18 Dose: 40 mg Furosemide (Lasix) 40 mg IVPUSH ONETIME ONE Stop: 11/08/19 23:27 Last Admin: 11/08/19 23:57 Dose: 40 mg Furosemide (Lasix) 40 mg IVPUSH ONETIME ONE Stop: 11/09/19 07:31 Last Admin: 11/09/19 08:35 Dose: 40 mg Furosemide (Lasix) 40 mg IVPUSH NOW ONE Stop: 11/09/19 19:01 Last Admin: 11/09/19 19:30 Dose: 40 mg Gabapentin (Neurontin) 300 mg PO TID [facility] Last Admin: 11/05/19 14:28 Dose: Not Given Glycopyrrolate (Robinul) Confirm Administered Dose 1 mg .ROUTE .STK-MED ONE Stop: 11/02/19 08:40 Heparin Sodium (Porcine) (Heparin Lock Flush 100 Units/Ml) Confirm Administered Dose 1,500 units .ROUTE .STK-MED ONE Stop: 10/30/19 06:34 Hydromorphone HCl (Dilaudid) 0.5 mg IVPUSH Q2H PRN PRN Reason: MODERATE PAIN Last Admin: 11/06/19 21:38 Dose: 0.5 mg Hydromorphone HCl (Dilaudid) 1 mg IV Q2H PRN PRN Reason: SEVERE PAIN Last Admin: 11/02/19 21:13 Dose: 1 mg Dextrose/Lactated Ringer's (Dextrose 5%-Lactated Ringers) 1,000 mls @ 100 mls/ hr IV ASDIRECTED [facility] Last Admin: 10/30/19 07:28 Dose: 100 mls/hr Cefazolin Sodium/Dextrose 2 gm (/ Premix) 50 mls @ 100 mls/hr IV ONETIME ONE Stop: 10/30/19 08:59 Last Admin: 10/30/19 08:14 Dose: 100 mls/hr Dextrose/Lactated Ringer's (Dextrose 5%-Lactated Ringers) 1,000 mls @ 0 mls/hr IV ASDIRECTED [facility] Last Admin: 11/01/19 20:16 Dose: 25 mls/hr Multivitamins/Minerals 10 ml/Chromium/Copper/Manganese/Seleni/Zn 1 ml/ Amino Ac/ Electrol/Dextrose/Calcium 1,011 mls @ 100 mls/hr IV .BY DURATION [facility] Stop: 10/31/19 17:00 Last Admin: 10/31/19 07:34 Dose: 100 mls/hr Amino Ac/Electrol/Dextrose/Calcium (Clinimix E 01/11) 1,000 mls @ 100 mls/hr IV .BY DURATION [facility] Stop: 10/31/19 17:00 Last Admin: 10/30/19 22:53 Dose: 100 mls/hr Fat Emulsion Intravenous (Intralipid 20%) 250 mls @ 21 mls/hr IV ONETIME ONE Stop: 10/31/19 03:54 Last Admin: 10/30/19 15:32 Dose: 21 mls/hr Albumin Human (Albumin 25%) 25 gm in 100 mls @ 25 mls/hr IV Q24H [facility] Stop: 11/02/19 14:59 Last Admin: 10/30/19 11:51 Dose: 25 mls/hr Albumin Human (Albumin 25%) 25 gm in 100 mls @ 25 mls/hr IV Q24H [facility] Stop: 11/02/19 18:59 Last Admin: 10/30/19 15:31 Dose: 25 mls/hr Magnesium Sulfate 2 gm/ Premix 50 mls @ 25 mls/hr IV Q6H [facility] Stop: 11/03/19 03:59 Last Admin: 11/02/19 09:15 Dose: 25 mls/hr Potassium Phosphate 20 mmole/ (Sodium Chloride) 106.6667 mls @ 35 mls/hr IV Q3H [facility] Stop: 10/31/19 18:59 Last Admin: 10/31/19 16:31 Dose: 35 mls/hr Albumin Human (Albumin 25%) 25 gm in 100 mls @ 25 mls/hr IV Q24H [facility] Stop: 11/02/19 23:59 Last Admin: 11/02/19 20:58 Dose: 25 mls/hr Albumin Human (Albumin 25%) 25 gm in 100 mls @ 25 mls/hr IV Q24H [facility] Stop: 11/03/19 03:59 Last Admin: 11/03/19 00:00 Dose: 25 mls/hr Fat Emulsion Intravenous (Intralipid 20%) 250 mls @ 21 mls/hr IV Q24H [facility] Last Admin: 10/31/19 17:52 Dose: 21 mls/hr Multivitamins/Minerals 10 ml/Chromium/Copper/Manganese/Seleni/Zn 1 ml/ Amino Ac/ Electrol/Dextrose/Calcium 1,011 mls @ 100 mls/hr IV .BY DURATION [facility] Last Admin: 11/02/19 01:37 Dose: 100 mls/hr Amino Ac/Electrol/Dextrose/Calcium (Clinimix E 5/15) 1,000 mls @ 100 mls/hr IV .BY DURATION [facility] Last Admin: 11/02/19 11:57 Dose: 100 mls/hr Cefoxitin Sodium 2 gm/ Sodium (Chloride) 50 mls @ 100 mls/hr IV ONETIME ONE Stop: 11/02/19 08:29 Last Admin: 11/02/19 12:27 Dose: 100 mls/hr Ketamine HCl 50 mg/ Sodium (Chloride) 50 mls @ 18 mls/hr IV ASDIRECTED [facility] Magnesium Sulfate 1.5 gm/ (Sodium Chloride) 103 mls @ 206 mls/hr IV ASDIRECTED [facility] Magnesium Sulfate 2.4 gm/ (Sodium Chloride) 254.8 mls @ 31.85 mls/hr IV ONETIME ONE Stop: 11/02/19 16:59 Lactated Ringer's (Ringers, Lactated) Confirm Administered Dose 1,000 mls @ as directed .ROUTE .[facility] ONE Stop: 11/02/19 11:07 Sodium Chloride (Normal Saline) Confirm Administered Dose 250 mls @ as directed .ROUTE .[facility] ONE Stop: 11/02/19 14:37 Dextrose/Lactated Ringer's (Dextrose 5%-Lactated Ringers) 1,000 mls @ 50 mls/ hr IV ASDIRECTED [facility] Last Admin: 11/03/19 02:38 Dose: 50 mls/hr Magnesium Sulfate 2 gm/ Premix 50 mls @ 25 mls/hr IV Q6H [facility] Stop: 11/03/19 07:59 Last Admin: 11/03/19 05:32 Dose: 25 mls/hr Cefoxitin Sodium 2 gm/ Sodium (Chloride) 50 mls @ 100 mls/hr IV Q6H [facility] Stop: 11/03/19 06:29 Last Admin: 11/03/19 05:36 Dose: 100 mls/hr Multivitamins/Minerals 10 ml/Chromium/Copper/Manganese/Seleni/Zn 1 ml/ Amino Ac/ Electrol/Dextrose/Calcium 1,011 mls @ 100 mls/hr IV .BY DURATION [facility] Stop: 11/03/19 18:30 Last Admin: 11/03/19 04:13 Dose: Not Given Amino Ac/Electrol/Dextrose/Calcium (Clinimix E 5/15) 1,000 mls @ 100 mls/hr IV .BY DURATION [facility] Stop: 11/03/19 18:30 Last Admin: 11/03/19 12:38 Dose: Not Given Dextrose/Lactated Ringer's (Dextrose 5%-Lactated Ringers) 1,000 mls @ 0 mls/hr IV ASDIRECTED [facility] Last Admin: 11/03/19 13:12 Dose: 25 mls/hr Multivitamins/Minerals 10 ml/Chromium/Copper/Manganese/Seleni/Zn 1 ml/ Amino Ac/ Electrol/Dextrose/Calcium 1,011 mls @ 100 mls/hr IV .BY DURATION [facility] Stop: 11/06/19 17:00 Last Admin: 11/06/19 09:20 Dose: 100 mls/hr Amino Ac/Electrol/Dextrose/Calcium (Clinimix E 5/15) 1,000 mls @ 100 mls/hr IV .BY DURATION [facility] Stop: 11/06/19 17:00 Last Admin: 11/05/19 23:17 Dose: 100 mls/hr Multivitamins/Minerals 10 ml/Chromium/Copper/Manganese/Seleni/Zn 1 ml/ Amino Ac/ Electrol/Dextrose/Calcium 1,011 mls @ 80 mls/hr IV .BY DURATION [facility] Stop: 11/07/19 09:45 Amino Ac/Electrol/Dextrose/Calcium (Clinimix E 5/15) 1,000 mls @ 80 mls/hr IV .BY DURATION [facility] Stop: 11/07/19 09:45 Last Admin: 11/06/19 21:42 Dose: 80 mls/hr Magnesium Sulfate 2 gm/ Premix 50 mls @ 25 mls/hr IV Q6H [facility] Stop: 11/10/19 05:59 Last Admin: 11/09/19 12:05 Dose: Not Given Multivitamins/Minerals 10 ml/Chromium/Copper/Manganese/Seleni/Zn 1 ml/ Amino Ac/ Electrol/Dextrose/Calcium 1,011 mls @ 40 mls/hr IV .BY DURATION [facility] Stop: 11/08/19 09:55 Last Admin: 11/07/19 10:47 Dose: 40 mls/hr Amino Ac/Electrol/Dextrose/Calcium (Clinimix E 5/15) 1,000 mls @ 40 mls/hr IV .BY DURATION [facility] Stop: 11/08/19 09:55 Albumin Human (Albumin 25%) 25 gm in 100 mls @ 25 mls/hr IV Q4H [facility] Stop: 11/08/19 16:29 Last Admin: 11/08/19 12:28 Dose: 25 mls/hr Albumin Human (Albumin 25%) 25 gm in 100 mls @ 25 mls/hr IV Q2H [facility] Stop: 11/09/19 09:59 Last Admin: 11/09/19 09:51 Dose: Not Given Piperacillin Sod/Tazobactam (Sod 3.375 gm/ Sodium Chloride) 50 mls @ 100 mls/ hr IV Q6H [facility] Last Admin: 11/09/19 05:49 Dose: 100 mls/hr Sodium Chloride (Normal Saline) 100 mls @ 4 mls/sec IV ASDIRECTED [facility] Stop: 11/09/19 11:00 Last Admin: 11/09/19 10:18 Dose: 4 mls/sec Iopamidol (Isovue-300 (61%)) 50 ml PO ASDIRECTED [facility] Stop: 11/03/19 04:21 Last Admin: 11/03/19 04:35 Dose: 50 ml Iopamidol (Isovue-300 (61%)) 50 ml PO ASDIRECTED [facility] Stop: 11/06/19 04:01 Last Admin: 11/06/19 04:33 Dose: 50 ml Iopamidol (Isovue-370 (76%)) 100 ml IV . DIRECTED ONE Stop: 11/09/19 09:10 Last Admin: 11/09/19 10:19 Dose: 100 ml Ketamine HCl (Ketalar) 0 mg IV BOLUS [facility] Ketamine HCl (Ketalar) 0 mg IV ASDIRECTED [facility] Ketamine HCl (Ketalar) 30 mg IV ASDIRECTED [facility] Labetalol HCl (Normodyne) 5 mg IVPUSH Q5M PRN PRN Reason: SBP over 160 OR DBP over 95 Lidocaine/Epinephrine (Xylocaine 1% With Epinephrine 1:100,000) Confirm Administered Dose 50 ml .ROUTE .STK-MED ONE Stop: 10/30/19 06:34 Last Admin: 10/30/19 08:47 Dose: 5 ml Lidocaine/Epinephrine (Xylocaine 1% With Epinephrine 1:100,000) Confirm Administered Dose 50 ml .ROUTE .STK-MED ONE Stop: 11/02/19 07:04 Loperamide HCl (Imodium) 4 mg PO QID [facility] Last Admin: 11/02/19 09:19 Dose: Not Given Lorazepam (Ativan) 0.5 mg IVPUSH ONETIME ONE Stop: 11/09/19 11:33 Last Admin: 11/09/19 11:53 Dose: 0.5 mg Lorazepam (Ativan) Confirm Administered Dose 2 mg .ROUTE .STK-MED ONE Stop: 11/09/19 11:35 Last Admin: 11/09/19 11:56 Dose: Not Given Magnesium Oxide (Magnesium Oxide) 400 mg PO DAILY [facility] Last Admin: 11/02/19 09:19 Dose: Not Given Meropenem (Merrem) Confirm Administered Dose 500 mg .ROUTE .STK-MED ONE Stop: 11/02/19 07:03 Last Admin: 11/02/19 13:27 Dose: 500 mg Metoclopramide HCl (Reglan) 10 mg IVPUSH Q6H PRN PRN Reason: NAUSEA NOT CONTROL BY ZOFRAN Last Admin: 11/02/19 19:00 Dose: 10 mg Midazolam HCl (Versed 1 Mg/Ml) Confirm Administered Dose 2 mg .ROUTE .STK-MED ONE Stop: 10/30/19 07:13 Neostigmine Methylsulfate (Neostigmine) Confirm Administered Dose 5 mg .ROUTE .STK-MED ONE Stop: 11/02/19 08:40 Non-Formulary Medication (Total Parenteral Nutrition, Central) 1,000 ml .XX .Continue Order [facility] Stop: 11/01/19 18:00 Non-Formulary Medication (Tap Block, Pharmacy To Dose) 0 ml NERVRT ONARRIVE [facility] Stop: 11/02/19 08:01 Non-Formulary Medication (Total Parenteral Nutrition, Central) 1,000 ml .XX .Continue Order [facility] Stop: 11/03/19 08:01 Non-Formulary Medication (Total Parenteral Nutrition, Central) 1,000 ml .XX .Continue Order [facility] Stop: 11/06/19 12:00 Non-Formulary Medication (Total Parenteral Nutrition, Central) 1,000 ml .XX .Continue Order [facility] Stop: 11/07/19 21:00 Non-Formulary Medication (Total Parenteral Nutrition, Central) 1,000 ml .XX .Continue Order [facility] Stop: 11/08/19 10:00 Ondansetron HCl (Zofran) Confirm Administered Dose 4 mg .ROUTE .STK-MED ONE Stop: 11/02/19 08:40 Oxycodone HCl (Oxycodone) 5 mg PO Q6H PRN PRN Reason: PAIN Pantoprazole Sodium (Protonix) 40 mg PO ACBREAKFAST [facility] Last Admin: 10/30/19 11:34 Dose: 40 mg Pantoprazole Sodium (Protonix) 40 mg PO QPM [facility] Last Admin: 11/01/19 16:11 Dose: 40 mg Pantoprazole Sodium (Protonix Iv) 40 mg IVPUSH Q24H [facility] Last Admin: 11/03/19 18:13 Dose: 40 mg Pantoprazole Sodium (Protonix Iv) 40 mg IVPUSH Q12H [facility] Last Admin: 11/07/19 08:43 Dose: 40 mg Propofol (Diprivan 20 Ml) Confirm Administered Dose 200 mg .ROUTE .STK-MED ONE Stop: 10/30/19 07:13 Propofol (Diprivan 20 Ml) Confirm Administered Dose 200 mg .ROUTE .STK-MED ONE Stop: 11/02/19 08:40 Rocuronium [place] (Zemuron) Confirm Administered Dose 50 mg .ROUTE .STK-MED ONE Stop: 11/02/19 08:40 Senna/Docusate Sodium (Senna Plus) 2 tab PO BID PRN PRN Reason: Constipation Succinylcholine Chloride (Quelicin) Confirm Administered Dose 200 mg .ROUTE .STK -MED ONE Stop: 11/02/19 08:40 - Exam Quality Assessment: Supplemental Oxygen General: Alert, Oriented, Cooperative, No Acute Distress Lungs: Crackles (both bases L>R and left mid lung ). No: Normal Respiratory Effort (increased work of breathing ), Wheezing Cardiovascular: Regular Rate, Regular Rhythm, No Murmurs GI/Abdominal Exam: Soft, No Distention Extremities: No Pedal Edema, Other (left arm edema ) Skin: Warm, Dry Wound/Incisions: Dressing Dry and Intact Psy/Mental Status: Alert, Normal Affect Sepsis Event Note - Evaluation Sepsis Screening Result: No Definite Risk - Focused Exam Vital Signs: Vital Signs Temp Pulse Resp BP Pulse Ox 11/10/19 09:00 94 18 110/70 99 11/10/19 07:07 92 11/10/19 07:00 36.6 C 98 12 104/67 99 11/10/19 05:00 96 14 113/69 99 11/10/19 03:00 36.3 C 89 18 107/82 98 11/10/19 01:00 36.2 C 93 19 115/66 99 11/09/19 23:00 36.6 C 96 18 105/70 96 Date Exam was Performed: 11/10/19 Time Exam was Performed: 12:03 Consult PN Assessment/Plan Procedures: Procedures ALANINE AMINO (ALT) (SGPT) (02/27/19) ASSAY ALKALINE PHOSPHATASE (02/27/19) ASSAY GLUCOSE BLOOD QUANT (11/14/18) ASSAY OF CALCIUM (11/14/18) ASSAY OF CREATININE (11/14/18) ASSAY OF MAGNESIUM (02/27/19) ASSAY OF PHOSPHORUS (02/27/19) ASSAY OF PREALBUMIN (02/27/19) ASSAY OF SERUM ALBUMIN (02/27/19) ASSAY OF TRIGLYCERIDES (02/27/19) ASSAY OF UREA NITROGEN (11/14/18) ASSAY THYROID STIM HORMONE (11/14/18) BILIRUBIN TOTAL (02/27/19) BLOOD TYPING SEROLOGIC ABO (09/26/15) BLOOD TYPING SEROLOGIC RH(D) (09/26/15) C DIFF AMPLIFIED PROBE (09/23/18) CARDIOVASCULAR STRESS TEST (07/03/19) CHEST X-RAY 2VW FRONTAL&LATL (11/20/14) COMPLETE CBC AUTOMATED (11/20/14) COMPLETE CBC W/AUTO DIFF WBC (02/27/19) COMPREHEN METABOLIC PANEL (12/19/18) CT THORAX W/DYE (12/19/18) CULTR BACTERIA EXCEPT BLOOD (06/22/19) CULTURE OTHR SPECIMN AEROBIC (06/22/19) DRAIN LOWER LEG LESION (06/22/19) ELECTROLYTE PANEL (11/14/18) EMERGENCY DEPT VISIT (09/22/18) EXTRACRANIAL BILAT STUDY (12/21/18) GLUCOSE BLOOD TEST (11/20/14) HEPATIC FUNCTION PANEL (11/23/18) HT MUSCLE IMAGE SPECT MULT (07/03/19) HYDRATION IV INFUSION INIT (04/15/16) LAP VENT/ABD HERNIA REPAIR (11/20/14) LAPAROSCOPIC CHOLECYSTECTOMY (11/20/14) METABOLIC PANEL TOTAL CA (02/27/19) OVA AND PARASITES SMEARS (09/23/18) POLYSOM ANY AGE 1-3> GISELLA (02/03/16) RBC ANTIBODY SCREEN (09/26/15) ROUTINE VENIPUNCTURE (01/24/19) SMEAR COMPLEX STAIN (09/23/18) SMEAR GRAM STAIN (06/22/19) THER/PROPH/DIAG IV INF ADDON (04/15/16) THER/PROPH/DIAG IV INF INIT (04/15/16) TRANSFERASE (AST) (SGOT) (02/27/19) TTE W/DOPPLER COMPLETE (08/09/18) TX/PRO/DX INJ NEW DRUG ADDON (04/15/16) URINALYSIS AUTO W/SCOPE (09/22/18) US EXAM ABDOM COMPLETE (01/06/19) Problem List Initiated/Reviewed/Updated: Yes My Orders Last 24 Hours: My Active Orders 11/10/19 09:30 Furosemide [Lasix] 40 mg IVPUSH Q12H Plan: ASSESSMENT AND RECOMMENDATIONS ACUTE HYPOXIC RESPIRATORY FAILURE-so far the picture seems to be most consistent with fluid overload and CHF and a component of ARDS, versus less likely infection. Responding well to diuretics. He has not had any fevers. FiO2 requirements have improved overnight. -Noninvasive positive pressure ventilation -Furosemide 40 mg IV twice daily -IV Zyvox, Zosyn, and azithromycin, start to de-escalate tomorrow if cultures are negative and no fevers -Follow-up cultures STATUS POST REVISION DUODENAL ILEOSTOMY-up until the last 24 hours had been doing well during the postoperative course -Management per Dr. Nicolas HYPOTHYROIDISM-modest elevation in TSH despite ongoing thyroid replacement therapy with levothyroxine. Recent TSH elevated at 8 and dose of levothyroxine has been increased. 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 Fidencio Merino MD
[2019-11-10] MEDS: Furosemide 40 MG/4 ML VIAL IVPUSH SCH ×2 (09:54→20:36)
[2019-11-10] MEDS: LYTES IV SCH ×3 (11:17)
[2019-11-10] MEDS: [UNRECOGNIZED DRUG - OTHER] IV SCH ×3 (11:17)
[2019-11-10] MEDS: VITAMIN K IV SCH ×3 (11:17)
[2019-11-10] MEDS: MVI IV SCH ×3 (11:17)
[2019-11-10] MEDS: CALCIUM IV SCH ×3 (11:17)
[2019-11-10] MEDS: Linezolid 600 MG in Premix Bag 1 BAG IV SCH ×2 (12:48→23:43)
[2019-11-10] MEDS: Azithromycin 500 MG in Sodium Chloride 0.9% 250 ML IV SCH (13:59)
[2019-11-11] MEDS: Nystatin Susp 100,000 Unit/ML 5 ML UD Cup PO SCH ×5 (05:04→22:11)
[2019-11-11] MEDS: Piperacillin/Tazobactam/Dext 3.375 GM in Premix Bag 1 BAG IV SCH ×3 (05:04→18:16)
[2019-11-11] MEDS: Albuterol/Ipratropium 3.0-0.5 MG/3 ML Neb Soln INH PRN (05:45)
[2019-11-11] MEDS: Pantoprazole 40 MG Tab.CR PO SCH ×2 (07:48→16:34)
[2019-11-11] MEDS: Heparin Sodium 5,000 Units/ML Vial SUBCUT SCH ×2 (07:48→20:52)
[2019-11-11] MEDS: Aspirin 81 MG Tab.EC PO SCH (08:00)
[2019-11-11] MEDS: Zinc (Zinc Gluconate) 50 MG Tab PO SCH (08:00)
[2019-11-11] MEDS: atorvaSTATin 20 MG Tab PO SCH (08:01)
[2019-11-11] MEDS: Potassium Chloride 20 MEQ Tab.ER PO SCH ×3 (08:01→20:52)
[2019-11-11] MEDS: Indacaterol/Glycopyrrolate 1 EA Cap.W.Dev Kit of 6 IH SCH ×3 (08:03→22:11)
[2019-11-11] MEDS: Albuterol/Ipratropium 3.0-0.5 MG/3 ML Neb Soln INH SCH ×4 (08:03→20:52)
--- NOTE | 2019-11-11 09:50 | PN ---
DATE OF SERVICE: 11/11/2019 SUBJECTIVE: Keshav was having difficult breathing for a few minutes early this a.m. He was able to talk. Reports pain is controlled. He has no other concerns or questions except he wants to go home. OBJECTIVE: GENERAL: Keshav Griffith is a 59-year-old male. VITAL SIGNS: TPR is 98.1, 101, 22, blood pressure is 108/76. HEART: Regular rate and rhythm. LUNGS: Decreased breath sounds bilaterally. ABDOMEN: Abdominal binder is on. Dressing dry and intact. EXTREMITIES: With trace peripheral edema, but actually looked very good for him. ASSESSMENT: 1. Acute respiratory distress. 2. 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 Date of surgery: 11/02/2019. Surgeon: Manfred Nicolas MD. 3. Anemia, requiring 1 unit of packed blood. 4. Low albumin. PLAN: To continue with management by hospitalist. Kelly Parham PA-C /[id number]
[2019-11-11] MEDS: Furosemide 40 MG/4 ML VIAL IVPUSH SCH ×2 (09:52→20:53)
--- NOTE | 2019-11-11 10:05 | PCM.CONSN ---
- General Info Date of Service: 11/11/19 Subjective Update: There were no acute events overnight. Patient has been tolerating the noninvasive ventilation quite well. He is down to 60% FiO2 this morning. He thinks her shortness of breath is a fair amount better but desaturates quickly without the noninvasive ventilation. Good response to diuresis yesterday. Tolerating TPN. No fevers. Cultures negative so far. Functional Status: Reports: Pain Controlled, Tolerating Diet - Review of Systems Pulmonary: Reports: Shortness of Breath - Patient Data Vitals - Most Recent: Last Vital Signs Temp 36.7 C 11/11/19 08:00 Pulse 113 H 11/11/19 06:00 Resp 20 11/11/19 10:00 BP 124/85 11/11/19 10:00 Pulse Ox 97 11/11/19 10:00 Weight - Most Recent: 54.658 kg I&O - Last 24 Hours: Intake & Output 11/10/19 11/11/19 11/11/19 22:59 06:59 14:59 Intake Total 641 1100 Output Total 1050 1300 Balance -409 -200 Lab Results Last 24 Hours: Laboratory Results - last 24 hr 11/11/19 11/11/19 11/11/19 Range/Units 04:45 04:45 05:00 WBC 11.1 H (4.5-11.0) K/uL RBC 3.24 L (4.30-5.90) M/uL Hgb 10.4 L (12.0-15.0) g/dL Hct 31.6 L (40.0-54.0) % MCV 98 (80-98) fL MCH 32 H (27-31) pg MCHC 33 (32-36) % Plt Count 197 (150-400) K/uL Puncture Site R radial ABG pH 7.468 H (7.350-7.450) ABG pCO2 45.6 H (35.0-42.0) mmHg ABG pO2 63.8 L (75.0-100.0) mmHg ABG HCO3 32.6 H (22.0-26.0) mmol/L ABG Total CO2 29.7 H (23.0-27.0) mmol/L ABG O2 Saturation 91.3 L (95.0-98.0) % ABG O2 Content 13.5 L (15.0-23.0) %vol ABG Base Excess 8.3 mm/L ABG Hemoglobin 10.8 L (13.5-18.0) g/dL ABG Oxyhemoglobin 88.7 % ABG Carboxyhemoglobin 1.1 (0.0-1.6) % ABG Methemoglobin 1.8 % Bob Test Ok O2 Delivery Device Bipap Oxygen Flow Rate L Sodium 140 (140-148) mmol/L Potassium 3.3 L (3.6-5.2) mmol/L Chloride 104 (100-108) mmol/L Carbon Dioxide 31 (21-32) mmol/L Anion Gap 8.3 (5.0-14.0) mmol/L BUN 24 H (7-18) mg/dL Creatinine 0.9 (0.8-1.3) mg/dL Est Cr Clr Drug Dosing 68.32 mL/min Estimated GFR (MDRD) > 60 (>60) Glucose 147 H (74-106) mg/dL Calcium 8.2 L (8.5-10.1) mg/dL Phosphorus 3.1 (2.5-4.9) mg/dL Magnesium 1.6 L (1.8-2.4) mg/dL Total Bilirubin 1.9 H (0.2-1.0) mg/dL AST 33 (15-37) U/L ALT 61 (12-78) U/L Alkaline Phosphatase 111 (46-116) U/L NT-Pro-B Natriuret Pep 1259 H (5-125) pg/mL Total Protein 4.5 L (6.4-8.2) g/dL Albumin 2.1 L (3.4-5.0) g/dL Globulin 2.4 (2.3-3.5) g/dL Albumin/Globulin Ratio 0.9 L (1.2-2.2) [facility] Results Last 24 Hours: Microbiology 11/09/19 12:15 Aerobic Blood Culture - Preliminary Blood - Central Line NO GROWTH AFTER 1 DAY Anaerobic Blood Culture - Preliminary NO GROWTH AFTER 1 DAY 11/09/19 12:20 Aerobic Blood Culture - Preliminary Blood - Arterial Line - Direct Stick NO GROWTH AFTER 1 DAY Anaerobic Blood Culture - Preliminary NO GROWTH AFTER 1 DAY Med Orders - Current: Current Medications Acetaminophen (Tylenol Extra Strength) 500 mg PO Q8H PRN PRN Reason: MILD PAIN Last Admin: 03/10/20 20:59 Dose: 500 mg Albuterol/Ipratropium (Duoneb 3.0-0.5 Mg/3 Ml) 3 ml INH QIDRT [facility] Last Admin: 11/11/19 08:03 Dose: Not Given Albuterol/Ipratropium (Duoneb 3.0-0.5 Mg/3 Ml) 3 ml INH ASDIRECTED PRN PRN Reason: BREATHING Last Admin: 11/11/19 05:45 Dose: 3 ml Aspirin (Halfprin) 81 mg PO DAILY [facility] Last Admin: 11/11/19 08:00 Dose: 81 mg Atorvastatin Calcium (Lipitor) 20 mg PO DAILY [facility] Last Admin: 11/11/19 08:01 Dose: 20 mg Calcium Carbonate/Glycine (Tums) 1,000 mg PO Q2H PRN PRN Reason: Indigestion Last Admin: 11/08/19 09:29 Dose: 1,000 mg Cyclobenzaprine HCl (Flexeril) 10 mg PO Q8H PRN PRN Reason: Muscle Spasm Last Admin: 11/03/19 07:42 Dose: 10 mg Dextrose/Water (Dextrose 50% In Water) 50 ml IVPUSH ONETIME PRN PRN Reason: ACCUCHECK LESS THAN 70 Diphenhydramine HCl (Benadryl) 50 mg IVPUSH Q4H PRN PRN Reason: ITCHING Furosemide (Lasix) 40 mg IVPUSH Q12H [facility] Last Admin: 11/11/19 09:52 Dose: 40 mg Glucagon (Glucagen) 1 mg IM ONETIME PRN PRN Reason: ACCUCHECK LESS THAN 70 Glycopyrrolate/Indacaterol (Utibron Neohaler 27.5-15.6 Mcg) 0 each IH BIDRT [facility] Last Admin: 11/11/19 08:03 Dose: 1 puff Heparin Sodium (Porcine) (Heparin Lock Flush 100 Units/Ml) 500 units FLUSH ASDIRECTED PRN PRN Reason: IV Use Last Admin: 11/09/19 04:43 Dose: 500 units Heparin Sodium (Porcine) (Heparin Sodium) 5,000 units SUBCUT Q12H [facility] Last Admin: 11/11/19 07:48 Dose: 5,000 units Heparin Sodium (Porcine) (Heparin Lock Flush 100 Units/Ml) 500 units FLUSH ASDIRECTED PRN PRN Reason: line maint Hydromorphone HCl (Dilaudid) 2 - 4 mg PO Q4H PRN PRN Reason: Pain Last Admin: 11/10/19 22:25 Dose: 4 mg Hydroxyzine HCl (Vistaril) 100 mg IM Q4H PRN PRN Reason: pain Last Admin: 11/05/19 21:08 Dose: 100 mg Piperacillin/Tazobactam/ (Dextrose 3.375 gm/ Premix) 50 mls @ 100 mls/hr IV Q6H [facility] Last Admin: 11/11/19 05:04 Dose: 100 mls/hr Azithromycin 500 mg/ Sodium (Chloride) 250 mls @ 250 mls/hr IV Q24H [facility] Last Admin: 11/10/19 13:59 Dose: 250 mls/hr Multivitamins/Minerals 10 ml/Chromium/Copper/Manganese/Seleni/Zn 1 ml/ Amino Ac/ Electrol/Dextrose/Calcium 1,011 mls @ 40 mls/hr IV .Q24H [facility] Last Admin: 11/10/19 11:17 Dose: 40 mls/hr Insulin Human Lispro (Humalog) 0 unit SUBCUT Q6H PRN; Protocol PRN Reason: CORRECTIONAL DOSING Last Admin: 11/03/19 10:20 Dose: 5 units Levothyroxine Sodium 300 mcg/ (Levothyroxine Sodium 25 mcg) 325 mcg PO DAILY@ 0600 [facility] Last Admin: 11/11/19 05:04 Dose: 325 mcg Lorazepam (Ativan) 0.5 mg IVPUSH Q2H PRN PRN Reason: Anxiety Nitroglycerin (Nitrostat) 0.4 mg SL ASDIRECTED PRN PRN Reason: Chest Pain Nystatin (Mycostatin) 5 ml PO QID [facility] Last Admin: 11/11/19 09:52 Dose: 5 ml Ondansetron HCl (Zofran) 4 mg IVPUSH Q4H PRN PRN Reason: Nausea/Vomiting Last Admin: 11/03/19 02:52 Dose: 4 mg Ondansetron HCl (Zofran Odt) 4 mg PO Q4H PRN PRN Reason: Nausea/Vomiting Pantoprazole Sodium (Protonix) 40 mg PO BIDAC [facility] Last Admin: 11/11/19 07:48 Dose: 40 mg Potassium Chloride (Klor-Con M20) 40 meq PO TID [facility] Testosterone Cypionate (Depo-Testosterone) 300 mg IM Q14D [facility] Last Admin: 11/01/19 11:00 Dose: 300 mg Zinc Gluconate (Zinc) 50 mg PO DAILY [facility] Last Admin: 11/11/19 08:00 Dose: 50 mg Discontinued Medications Acetaminophen (Tylenol Extra Strength) 1,000 mg PO Q8H [facility] Last Admin: 11/05/19 17:50 Dose: Not Given Albuterol (Ventolin Hfa) 0 gm INH Q4H PRN PRN Reason: * Albuterol/Ipratropium (Duoneb 3.0-0.5 Mg/3 Ml) 3 ml NEB ONETIME ONE Stop: 10/30/19 07:01 Last Admin: 10/30/19 07:28 Dose: 3 ml Bupivacaine HCl (Marcaine 0.5%) Confirm Administered Dose 50 ml .ROUTE .STK-MED ONE Stop: 10/30/19 06:34 Last Admin: 10/30/19 08:47 Dose: 5 ml Bupivacaine HCl (Marcaine 0.5%) Confirm Administered Dose 50 ml .ROUTE .STK-MED ONE Stop: 11/02/19 07:03 Calcium Carbonate (Caltrate 600+D 1500 Mg-400 Units) 1 tab PO BID [facility] Last Admin: 11/02/19 09:18 Dose: Not Given Ropivacaine 30 ml/Dexamethasone 8 mg/Epinephrine HCl 0.4 mg/ Sodium Chloride 47.6 ml 0 ml NERVRT ASDIRECTED [facility] Last Admin: 11/02/19 13:39 Dose: 80 syringe Cyanocobalamin (Vitamin B12) 1,000 mcg IM ONETIME ONE Stop: 11/04/19 09:01 Last Admin: 11/04/19 08:26 Dose: 1,000 mcg Dexamethasone (Dexamethasone) Confirm Administered Dose 4 mg .ROUTE .STK-MED ONE Stop: 11/02/19 08:40 Diphenoxylate HCl/Atropine (Lomotil 0.025-2.5 Mg) 1 tab PO QID [facility] Last Admin: 11/02/19 09:19 Dose: Not Given Docusate Sodium (Colace) 100 mg PO BID [facility] Last Admin: 11/06/19 20:01 Dose: Not Given Fentanyl (Sublimaze) Confirm Administered Dose 100 mcg .ROUTE .STK-MED ONE Stop: 10/30/19 07:13 Fentanyl (Sublimaze) Confirm Administered Dose 250 mcg .ROUTE .STK-MED ONE Stop: 11/02/19 08:40 Furosemide (Lasix) 10 mg IV ONETIME ONE Stop: 11/04/19 09:01 Last Admin: 11/04/19 08:51 Dose: 10 mg Furosemide (Lasix) 20 mg IV ONETIME ONE Stop: 11/04/19 12:31 Last Admin: 11/04/19 12:15 Dose: 20 mg Furosemide (Lasix) 20 mg IVPUSH ONETIME ONE Stop: 11/04/19 15:39 Last Admin: 11/04/19 15:49 Dose: 20 mg Furosemide (Lasix) 20 mg IV ONETIME ONE Stop: 11/05/19 12:01 Last Admin: 11/05/19 13:08 Dose: 20 mg Furosemide (Lasix) 40 mg IVPUSH ONETIME ONE Stop: 11/08/19 06:52 Last Admin: 11/08/19 07:18 Dose: 40 mg Furosemide (Lasix) 40 mg IVPUSH ONETIME ONE Stop: 11/08/19 23:27 Last Admin: 11/08/19 23:57 Dose: 40 mg Furosemide (Lasix) 40 mg IVPUSH ONETIME ONE Stop: 11/09/19 07:31 Last Admin: 11/09/19 08:35 Dose: 40 mg Furosemide (Lasix) 40 mg IVPUSH NOW ONE Stop: 11/09/19 19:01 Last Admin: 11/09/19 19:30 Dose: 40 mg Gabapentin (Neurontin) 300 mg PO TID [facility] Last Admin: 11/05/19 14:28 Dose: Not Given Glycopyrrolate (Robinul) Confirm Administered Dose 1 mg .ROUTE .STK-MED ONE Stop: 11/02/19 08:40 Heparin Sodium (Porcine) (Heparin Lock Flush 100 Units/Ml) Confirm Administered Dose 1,500 units .ROUTE .STK-MED ONE Stop: 10/30/19 06:34 Hydromorphone HCl (Dilaudid) 0.5 mg IVPUSH Q2H PRN PRN Reason: MODERATE PAIN Last Admin: 11/06/19 21:38 Dose: 0.5 mg Hydromorphone HCl (Dilaudid) 1 mg IV Q2H PRN PRN Reason: SEVERE PAIN Last Admin: 11/02/19 21:13 Dose: 1 mg Dextrose/Lactated Ringer's (Dextrose 5%-Lactated Ringers) 1,000 mls @ 100 mls/ hr IV ASDIRECTED [facility] Last Admin: 10/30/19 07:28 Dose: 100 mls/hr Cefazolin Sodium/Dextrose 2 gm (/ Premix) 50 mls @ 100 mls/hr IV ONETIME ONE Stop: 10/30/19 08:59 Last Admin: 10/30/19 08:14 Dose: 100 mls/hr Dextrose/Lactated Ringer's (Dextrose 5%-Lactated Ringers) 1,000 mls @ 0 mls/hr IV ASDIRECTED [facility] Last Admin: 11/01/19 20:16 Dose: 25 mls/hr Multivitamins/Minerals 10 ml/Chromium/Copper/Manganese/Seleni/Zn 1 ml/ Amino Ac/ Electrol/Dextrose/Calcium 1,011 mls @ 100 mls/hr IV .BY DURATION [facility] Stop: 10/31/19 17:00 Last Admin: 10/31/19 07:34 Dose: 100 mls/hr Amino Ac/Electrol/Dextrose/Calcium (Clinimix E 5/15) 1,000 mls @ 100 mls/hr IV .BY DURATION [facility] Stop: 10/31/19 17:00 Last Admin: 10/30/19 22:53 Dose: 100 mls/hr Fat Emulsion Intravenous (Intralipid 20%) 250 mls @ 21 mls/hr IV ONETIME ONE Stop: 10/31/19 03:54 Last Admin: 10/30/19 15:32 Dose: 21 mls/hr Albumin Human (Albumin 25%) 25 gm in 100 mls @ 25 mls/hr IV Q24H [facility] Stop: 11/02/19 14:59 Last Admin: 10/30/19 11:51 Dose: 25 mls/hr Albumin Human (Albumin 25%) 25 gm in 100 mls @ 25 mls/hr IV Q24H [facility] Stop: 11/02/19 18:59 Last Admin: 10/30/19 15:31 Dose: 25 mls/hr Magnesium Sulfate 2 gm/ Premix 50 mls @ 25 mls/hr IV Q6H [facility] Stop: 11/03/19 03:59 Last Admin: 11/02/19 09:15 Dose: 25 mls/hr Potassium Phosphate 20 mmole/ (Sodium Chloride) 106.6667 mls @ 35 mls/hr IV Q3H [facility] Stop: 10/31/19 18:59 Last Admin: 10/31/19 16:31 Dose: 35 mls/hr Albumin Human (Albumin 25%) 25 gm in 100 mls @ 25 mls/hr IV Q24H [facility] Stop: 11/02/19 23:59 Last Admin: 11/02/19 20:58 Dose: 25 mls/hr Albumin Human (Albumin 25%) 25 gm in 100 mls @ 25 mls/hr IV Q24H [facility] Stop: 11/03/19 03:59 Last Admin: 11/03/19 00:00 Dose: 25 mls/hr Fat Emulsion Intravenous (Intralipid 20%) 250 mls @ 21 mls/hr IV Q24H [facility] Last Admin: 10/31/19 17:52 Dose: 21 mls/hr Multivitamins/Minerals 10 ml/Chromium/Copper/Manganese/Seleni/Zn 1 ml/ Amino Ac/ Electrol/Dextrose/Calcium 1,011 mls @ 100 mls/hr IV .BY DURATION [facility] Last Admin: 11/02/19 01:37 Dose: 100 mls/hr Amino Ac/Electrol/Dextrose/Calcium (Clinimix E 5/15) 1,000 mls @ 100 mls/hr IV .BY DURATION [facility] Last Admin: 11/02/19 11:57 Dose: 100 mls/hr Cefoxitin Sodium 2 gm/ Sodium (Chloride) 50 mls @ 100 mls/hr IV ONETIME ONE Stop: 11/02/19 08:29 Last Admin: 11/02/19 12:27 Dose: 100 mls/hr Ketamine HCl 50 mg/ Sodium (Chloride) 50 mls @ 18 mls/hr IV ASDIRECTED [facility] Magnesium Sulfate 1.5 gm/ (Sodium Chloride) 103 mls @ 206 mls/hr IV ASDIRECTED [facility] Magnesium Sulfate 2.4 gm/ (Sodium Chloride) 254.8 mls @ 31.85 mls/hr IV ONETIME ONE Stop: 11/02/19 16:59 Lactated Ringer's (Ringers, Lactated) Confirm Administered Dose 1,000 mls @ as directed .ROUTE .STK-MED ONE Stop: 11/02/19 11:07 Sodium Chloride (Normal Saline) Confirm Administered Dose 250 mls @ as directed .ROUTE .[facility] ONE Stop: 11/02/19 14:37 Dextrose/Lactated Ringer's (Dextrose 5%-Lactated Ringers) 1,000 mls @ 50 mls/ hr IV ASDIRECTED [facility] Last Admin: 11/03/19 02:38 Dose: 50 mls/hr Magnesium Sulfate 2 gm/ Premix 50 mls @ 25 mls/hr IV Q6H [facility] Stop: 11/03/19 07:59 Last Admin: 11/03/19 05:32 Dose: 25 mls/hr Cefoxitin Sodium 2 gm/ Sodium (Chloride) 50 mls @ 100 mls/hr IV Q6H [facility] Stop: 11/03/19 06:29 Last Admin: 11/03/19 05:36 Dose: 100 mls/hr Multivitamins/Minerals 10 ml/Chromium/Copper/Manganese/Seleni/Zn 1 ml/ Amino Ac/ Electrol/Dextrose/Calcium 1,011 mls @ 100 mls/hr IV .BY DURATION [facility] Stop: 11/03/19 18:30 Last Admin: 11/03/19 04:13 Dose: Not Given Amino Ac/Electrol/Dextrose/Calcium (Clinimix E 5/15) 1,000 mls @ 100 mls/hr IV .BY DURATION [facility] Stop: 11/03/19 18:30 Last Admin: 11/03/19 12:38 Dose: Not Given Dextrose/Lactated Ringer's (Dextrose 5%-Lactated Ringers) 1,000 mls @ 0 mls/hr IV ASDIRECTED [facility] Last Admin: 11/03/19 13:12 Dose: 25 mls/hr Multivitamins/Minerals 10 ml/Chromium/Copper/Manganese/Seleni/Zn 1 ml/ Amino Ac/ Electrol/Dextrose/Calcium 1,011 mls @ 100 mls/hr IV .BY DURATION [facility] Stop: 11/06/19 17:00 Last Admin: 11/06/19 09:20 Dose: 100 mls/hr Amino Ac/Electrol/Dextrose/Calcium (Clinimix E 5/15) 1,000 mls @ 100 mls/hr IV .BY DURATION [facility] Stop: 11/06/19 17:00 Last Admin: 11/05/19 23:17 Dose: 100 mls/hr Multivitamins/Minerals 10 ml/Chromium/Copper/Manganese/Seleni/Zn 1 ml/ Amino Ac/ Electrol/Dextrose/Calcium 1,011 mls @ 80 mls/hr IV .BY DURATION [facility] Stop: 11/07/19 09:45 Amino Ac/Electrol/Dextrose/Calcium (Clinimix E 5/15) 1,000 mls @ 80 mls/hr IV .BY DURATION [facility] Stop: 11/07/19 09:45 Last Admin: 11/06/19 21:42 Dose: 80 mls/hr Magnesium Sulfate 2 gm/ Premix 50 mls @ 25 mls/hr IV Q6H [facility] Stop: 11/10/19 05:59 Last Admin: 11/09/19 12:05 Dose: Not Given Multivitamins/Minerals 10 ml/Chromium/Copper/Manganese/Seleni/Zn 1 ml/ Amino Ac/ Electrol/Dextrose/Calcium 1,011 mls @ 40 mls/hr IV .BY DURATION [facility] Stop: 11/08/19 09:55 Last Admin: 11/07/19 10:47 Dose: 40 mls/hr Amino Ac/Electrol/Dextrose/Calcium (Clinimix E 5/15) 1,000 mls @ 40 mls/hr IV .BY DURATION [facility] Stop: 11/08/19 09:55 Albumin Human (Albumin 25%) 25 gm in 100 mls @ 25 mls/hr IV Q4H [facility] Stop: 11/08/19 16:29 Last Admin: 11/08/19 12:28 Dose: 25 mls/hr Albumin Human (Albumin 25%) 25 gm in 100 mls @ 25 mls/hr IV Q2H [facility] Stop: 11/09/19 09:59 Last Admin: 11/09/19 09:51 Dose: Not Given Piperacillin Sod/Tazobactam (Sod 3.375 gm/ Sodium Chloride) 50 mls @ 100 mls/ hr IV Q6H [facility] Last Admin: 11/09/19 05:49 Dose: 100 mls/hr Sodium Chloride (Normal Saline) 100 mls @ 4 mls/sec IV ASDIRECTED [facility] Stop: 11/09/19 11:00 Last Admin: 11/09/19 10:18 Dose: 4 mls/sec Linezolid 600 mg/ Premix 300 mls @ 300 mls/hr IV Q12H [facility] Last Admin: 11/10/19 23:43 Dose: 300 mls/hr Iopamidol (Isovue-300 (61%)) 50 ml PO ASDIRECTED [facility] Stop: 11/03/19 04:21 Last Admin: 11/03/19 04:35 Dose: 50 ml Iopamidol (Isovue-300 (61%)) 50 ml PO ASDIRECTED [facility] Stop: 11/06/19 04:01 Last Admin: 11/06/19 04:33 Dose: 50 ml Iopamidol (Isovue-370 (76%)) 100 ml IV . DIRECTED ONE Stop: 11/09/19 09:10 Last Admin: 11/09/19 10:19 Dose: 100 ml Ketamine HCl (Ketalar) 0 mg IV BOLUS [facility] Ketamine HCl (Ketalar) 0 mg IV ASDIRECTED [facility] Ketamine HCl (Ketalar) 30 mg IV ASDIRECTED [facility] Labetalol HCl (Normodyne) 5 mg IVPUSH Q5M PRN PRN Reason: SBP over 160 OR DBP over 95 Lidocaine/Epinephrine (Xylocaine 1% With Epinephrine 1:100,000) Confirm Administered Dose 50 ml .ROUTE .STK-MED ONE Stop: 10/30/19 06:34 Last Admin: 10/30/19 08:47 Dose: 5 ml Lidocaine/Epinephrine (Xylocaine 1% With Epinephrine 1:100,000) Confirm Administered Dose 50 ml .ROUTE .STK-MED ONE Stop: 11/02/19 07:04 Loperamide HCl (Imodium) 4 mg PO QID [facility] Last Admin: 11/02/19 09:19 Dose: Not Given Lorazepam (Ativan) 0.5 mg IVPUSH ONETIME ONE Stop: 11/09/19 11:33 Last Admin: 11/09/19 11:53 Dose: 0.5 mg Lorazepam (Ativan) Confirm Administered Dose 2 mg .ROUTE .STK-MED ONE Stop: 11/09/19 11:35 Last Admin: 11/09/19 11:56 Dose: Not Given Magnesium Oxide (Magnesium Oxide) 400 mg PO DAILY [facility] Last Admin: 11/02/19 09:19 Dose: Not Given Meropenem (Merrem) Confirm Administered Dose 500 mg .ROUTE .STK-MED ONE Stop: 11/02/19 07:03 Last Admin: 11/02/19 13:27 Dose: 500 mg Metoclopramide HCl (Reglan) 10 mg IVPUSH Q6H PRN PRN Reason: NAUSEA NOT CONTROL BY ZOFRAN Last Admin: 11/02/19 19:00 Dose: 10 mg Midazolam HCl (Versed 1 Mg/Ml) Confirm Administered Dose 2 mg .ROUTE .[facility] ONE Stop: 10/30/19 07:13 Neostigmine Methylsulfate (Neostigmine) Confirm Administered Dose 5 mg .ROUTE .[facility] ONE Stop: 11/02/19 08:40 Non-Formulary Medication (Total Parenteral Nutrition, Central) 1,000 ml .XX .Continue Order [facility] Stop: 11/01/19 18:00 Non-Formulary Medication (Tap Block, Pharmacy To Dose) 0 ml NERVRT ONARRIVE [facility] Stop: 11/02/19 08:01 Non-Formulary Medication (Total Parenteral Nutrition, Central) 1,000 ml .XX .Continue Order [facility] Stop: 11/03/19 08:01 Non-Formulary Medication (Total Parenteral Nutrition, Central) 1,000 ml .XX .Continue Order [facility] Stop: 11/06/19 12:00 Non-Formulary Medication (Total Parenteral Nutrition, Central) 1,000 ml .XX .Continue Order [facility] Stop: 11/07/19 21:00 Non-Formulary Medication (Total Parenteral Nutrition, Central) 1,000 ml .XX .Continue Order [facility] Stop: 11/08/19 10:00 Ondansetron HCl (Zofran) Confirm Administered Dose 4 mg .ROUTE .[facility] ONE Stop: 11/02/19 08:40 Oxycodone HCl (Oxycodone) 5 mg PO Q6H PRN PRN Reason: PAIN Pantoprazole Sodium (Protonix) 40 mg PO ACBREAKFAST [facility] Last Admin: 10/30/19 11:34 Dose: 40 mg Pantoprazole Sodium (Protonix) 40 mg PO QPM [facility] Last Admin: 11/01/19 16:11 Dose: 40 mg Pantoprazole Sodium (Protonix Iv) 40 mg IVPUSH Q24H [facility] Last Admin: 11/03/19 18:13 Dose: 40 mg Pantoprazole Sodium (Protonix Iv) 40 mg IVPUSH Q12H [facility] Last Admin: 11/07/19 08:43 Dose: 40 mg Potassium Chloride (Klor-Con M20) 20 meq PO TID [facility] Last Admin: 11/11/19 08:01 Dose: 20 meq Propofol (Diprivan 20 Ml) Confirm Administered Dose 200 mg .ROUTE .STK-MED ONE Stop: 10/30/19 07:13 Propofol (Diprivan 20 Ml) Confirm Administered Dose 200 mg .ROUTE .STK-MED ONE Stop: 11/02/19 08:40 Rocuronium [place] (Zemuron) Confirm Administered Dose 50 mg .ROUTE .STK-MED ONE Stop: 11/02/19 08:40 Senna/Docusate Sodium (Senna Plus) 2 tab PO BID PRN PRN Reason: Constipation Succinylcholine Chloride (Quelicin) Confirm Administered Dose 200 mg .ROUTE .STK -MED ONE Stop: 11/02/19 08:40 - Exam Quality Assessment: Supplemental Oxygen General: Alert, Oriented, Cooperative, No Acute Distress Lungs: Crackles (mild diffuse ). No: Normal Respiratory Effort (increased work of breathing ) Cardiovascular: Regular Rhythm, Tachycardia GI/Abdominal Exam: Soft, No Distention Extremities: No Pedal Edema. No: Increased Warmth Skin: Warm, Dry Wound/Incisions: Dressing Dry and Intact Psy/Mental Status: Alert, Normal Affect Sepsis Event Note - Evaluation Sepsis Screening Result: Sepsis Risk - Focused Exam Vital Signs: Vital Signs Temp Pulse Resp BP Pulse Ox 11/11/19 10:00 20 124/85 97 11/11/19 08:00 36.7 C 22 H 108/76 93 L 11/11/19 06:00 36.6 C 113 H 20 118/73 94 L 11/11/19 04:00 36.6 C 94 18 125/80 93 L 11/11/19 02:00 92 17 118/76 96 11/11/19 00:00 36.9 C 93 12 107/76 96 Date Exam was Performed: 11/11/19 Time Exam was Performed: 13:21 Consult PN Assessment/Plan Procedures: Procedures ALANINE AMINO (ALT) (SGPT) (02/27/19) ASSAY ALKALINE PHOSPHATASE (02/27/19) ASSAY GLUCOSE BLOOD QUANT (11/14/18) ASSAY OF CALCIUM (11/14/18) ASSAY OF CREATININE (11/14/18) ASSAY OF MAGNESIUM (02/27/19) ASSAY OF PHOSPHORUS (02/27/19) ASSAY OF PREALBUMIN (02/27/19) ASSAY OF SERUM ALBUMIN (02/27/19) ASSAY OF TRIGLYCERIDES (02/27/19) ASSAY OF UREA NITROGEN (11/14/18) ASSAY THYROID STIM HORMONE (11/14/18) BILIRUBIN TOTAL (02/27/19) BLOOD TYPING SEROLOGIC ABO (09/26/15) BLOOD TYPING SEROLOGIC RH(D) (09/26/15) C DIFF AMPLIFIED PROBE (09/23/18) CARDIOVASCULAR STRESS TEST (07/03/19) CHEST X-RAY 2VW FRONTAL&LATL (11/20/14) COMPLETE CBC AUTOMATED (11/20/14) COMPLETE CBC W/AUTO DIFF WBC (02/27/19) COMPREHEN METABOLIC PANEL (12/19/18) CT THORAX W/DYE (12/19/18) CULTR BACTERIA EXCEPT BLOOD (06/22/19) CULTURE OTHR SPECIMN AEROBIC (06/22/19) DRAIN LOWER LEG LESION (06/22/19) ELECTROLYTE PANEL (11/14/18) EMERGENCY DEPT VISIT (09/22/18) EXTRACRANIAL BILAT STUDY (12/21/18) GLUCOSE BLOOD TEST (11/20/14) HEPATIC FUNCTION PANEL (11/23/18) HT MUSCLE IMAGE SPECT MULT (07/03/19) HYDRATION IV INFUSION INIT (04/15/16) LAP VENT/ABD HERNIA REPAIR (11/20/14) LAPAROSCOPIC CHOLECYSTECTOMY (11/20/14) METABOLIC PANEL TOTAL CA (02/27/19) OVA AND PARASITES SMEARS (09/23/18) POLYSOM ANY AGE 1-3> GISELLA (02/03/16) RBC ANTIBODY SCREEN (09/26/15) ROUTINE VENIPUNCTURE (01/24/19) SMEAR COMPLEX STAIN (09/23/18) SMEAR GRAM STAIN (06/22/19) THER/PROPH/DIAG IV INF ADDON (04/15/16) THER/PROPH/DIAG IV INF INIT (04/15/16) TRANSFERASE (AST) (SGOT) (02/27/19) TTE W/DOPPLER COMPLETE (08/09/18) TX/PRO/DX INJ NEW DRUG ADDON (04/15/16) URINALYSIS AUTO W/SCOPE (09/22/18) US EXAM ABDOM COMPLETE (01/06/19) Problem List Initiated/Reviewed/Updated: Yes My Orders Last 24 Hours: My Active Orders 11/10/19 09:30 Furosemide [Lasix] 40 mg IVPUSH Q12H 11/11/19 10:03 BIPAP Adult [RT BiPAP/CPAP] [RC] ASDIRECTED 11/11/19 14:00 Potassium Chloride [Klor-Con M20] 40 meq PO TID 11/12/19 05:00 BASIC METABOLIC PANEL,BMP [CHEM] Timed CBC W/O DIFF,HEMOGRAM [HEME] Timed (1) Plan: ASSESSMENT AND RECOMMENDATIONS ACUTE HYPOXIC RESPIRATORY FAILURE-so far the picture seems to be most consistent with fluid overload and CHF and a component of ARDS, versus less likely infection. He continues to improve with diuresis. Supplemental oxygen requirement decreasing. Cultures are negative. -Noninvasive positive pressure ventilation -Furosemide 40 mg IV twice daily -IV Pip/Tazo, and azithromycin -Discontinue linezolid -Follow-up cultures HYPOKALEMIA-mild at this time. Probably related to diuresis. -Increase supplementation to 40 mEq 3 times daily -Recheck in the morning STATUS POST REVISION DUODENAL ILEOSTOMY-stable. -Management per Dr. Nicolas HYPOTHYROIDISM-modest elevation in TSH despite ongoing thyroid replacement therapy with levothyroxine. Recent TSH elevated at 8 and dose of levothyroxine has been increased. 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 Fidencio Merino MD
[2019-11-11] MEDS: MVI IV SCH ×3 (12:22)
[2019-11-11] MEDS: Azithromycin 500 MG in Sodium Chloride 0.9% 250 ML IV SCH (12:22)
[2019-11-11] MEDS: CALCIUM IV SCH ×3 (12:22)
[2019-11-11] MEDS: [UNRECOGNIZED DRUG - OTHER] IV SCH ×3 (12:22)
[2019-11-11] MEDS: LYTES IV SCH ×3 (12:22)
[2019-11-11] MEDS: VITAMIN K IV SCH ×3 (12:22)
[2019-11-11] MEDS: HYDROmorphone 2 MG Tab PO PRN (22:00)
[2019-11-12] MEDS: Piperacillin/Tazobactam/Dext 3.375 GM in Premix Bag 1 BAG IV SCH ×4 (00:56→18:18)
[2019-11-12] MEDS: Albuterol/Ipratropium 3.0-0.5 MG/3 ML Neb Soln INH PRN (01:57)
[2019-11-12] MEDS: HYDROmorphone 2 MG Tab PO PRN ×4 (01:57→20:11)
[2019-11-12] MEDS: Nystatin Susp 100,000 Unit/ML 5 ML UD Cup PO SCH ×4 (06:00→21:34)
[2019-11-12] MEDS ORDERED: Central Total Parenteral Nutrition Bag SCH (07:15)
[2019-11-12] MEDS: Indacaterol/Glycopyrrolate 1 EA Cap.W.Dev Kit of 6 IH SCH ×2 (07:21→20:51)
[2019-11-12] MEDS: Albuterol/Ipratropium 3.0-0.5 MG/3 ML Neb Soln INH SCH ×4 (07:21→20:51)
[2019-11-12] MEDS: Zinc (Zinc Gluconate) 50 MG Tab PO SCH (08:14)
[2019-11-12] MEDS: Heparin Sodium 5,000 Units/ML Vial SUBCUT SCH ×2 (08:14→20:51)
[2019-11-12] MEDS: Pantoprazole 40 MG Tab.CR PO SCH ×2 (08:14→16:14)
[2019-11-12] MEDS: Aspirin 81 MG Tab.EC PO SCH (08:14)
[2019-11-12] MEDS: atorvaSTATin 20 MG Tab PO SCH (08:14)
[2019-11-12] MEDS: Potassium Chloride 20 MEQ Tab.ER PO SCH ×3 (08:15→20:51)
--- NOTE | 2019-11-12 08:24 | PN ---
DATE OF SERVICE: 11/12/2019 SUBJECTIVE: Keshav had a better night, slept better. O2 was in the low-to-mid 90s. He continues to be on the BiPAP, diuresing well. Any movement or with minimal exertion, his pulse oximetry will desat into the 80s. Pain is controlled. Afebrile. TPN continues to run at 100 mL per hour. REVIEW OF SYSTEMS: Remainder of review of systems negative for any pertinent positives and negatives. OBJECTIVE: GENERAL: Shun Griffith is a 59-year-old male. VITAL SIGNS: Pulse 91, blood pressure 110/70, respiration rate is 12. Exam deferred. He is sleeping soundly. ASSESSMENT: 1. Acute respiratory distress. 2. 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 Date of surgery: 11/02/2019. Surgeon: Manfred Nicolas MD. 3. Anemia, requiring 1 unit of packed red blood cells. 4. Low albumin. 5. Malnutrition, requiring TPN therapy. PLAN: 1. Continue same TPN rate and content. 2. CBC, CMP, mag, phos, BNP, and ABGs in a.m. 3. We will evaluate p.r.n. or in a.m. Kelly Parham PA-C /[id number]
--- NOTE | 2019-11-12 09:27 | PCM.PN ---
- General Info Date of Service: 11/12/19 Subjective Update: There were no acute events overnight. He has continued to use the NIPPV and has tolerated it well. He reports that his shortness of breath is better today. He reports that his anxiety has decreased from yesterday. Good response to diuresis again yesterday. Heart rate is slowly improving but remains in the 90s. He has not had any fevers. Cultures have all been negative. I did repeat a chest x-ray today with a slight increase in his PCO2 but this appears to be clearing as well. Functional Status: Reports: Pain Controlled, Tolerating Diet - Review of Systems General: Reports: Weakness Pulmonary: Reports: Shortness of Breath - Patient Data Vitals - Most Recent: Last Vital Signs Temp 36.8 C 11/12/19 08:00 Pulse 90 11/12/19 08:00 Resp 12 11/12/19 08:00 BP 111/72 11/12/19 08:00 Pulse Ox 93 L 11/12/19 08:00 Weight - Most Recent: 54.658 kg I&O - Last 24 Hours: Intake & Output 11/11/19 11/12/19 11/12/19 22:59 06:59 14:59 Intake Total 1183 Output Total 1075 900 Balance -1075 283 Lab Results Last 24 Hours: Laboratory Results - last 24 hr 11/12/19 11/12/19 11/12/19 Range/Units 04:00 04:00 05:40 WBC 10.0 (4.5-11.0) K/uL RBC 3.24 L (4.30-5.90) M/uL Hgb 10.2 L (12.0-15.0) g/dL Hct 32.4 L (40.0-54.0) % MCV 100 H (80-98) fL MCH 32 H (27-31) pg MCHC 32 (32-36) % Plt Count 223 (150-400) K/uL Puncture Site Rt radial ABG pH 7.441 (7.350-7.450) ABG pCO2 49.3 H (35.0-42.0) mmHg ABG pO2 71.7 L (75.0-100.0) mmHg ABG HCO3 33.0 H (22.0-26.0) mmol/L ABG Total CO2 30.1 H (23.0-27.0) mmol/L ABG O2 Saturation 93.0 L (95.0-98.0) % ABG O2 Content 13.9 L (15.0-23.0) %vol ABG Base Excess 8.1 mm/L ABG Hemoglobin 10.9 L (13.5-18.0) g/dL ABG Oxyhemoglobin 90.2 % ABG Carboxyhemoglobin 1.1 (0.0-1.6) % ABG Methemoglobin 1.9 % Bob Test Passed O2 Delivery Device Bipap Oxygen Flow Rate L Sodium 142 (140-148) mmol/L Potassium 3.6 (3.6-5.2) mmol/L Chloride 105 (100-108) mmol/L Carbon Dioxide 34 H (21-32) mmol/L Anion Gap 6.6 (5.0-14.0) mmol/L BUN 26 H (7-18) mg/dL Creatinine 0.9 (0.8-1.3) mg/dL Est Cr Clr Drug Dosing 68.32 mL/min Estimated GFR (MDRD) > 60 (>60) Glucose 151 H (74-106) mg/dL Calcium 7.9 L (8.5-10.1) mg/dL Phosphorus 2.7 (2.5-4.9) mg/dL Total Bilirubin 1.4 H (0.2-1.0) mg/dL AST 48 H (15-37) U/L ALT 69 (12-78) U/L Alkaline Phosphatase 118 H (46-116) U/L NT-Pro-B Natriuret Pep 949 H (5-125) pg/mL Total Protein 4.5 L (6.4-8.2) g/dL Albumin 1.9 L (3.4-5.0) g/dL Globulin 2.6 (2.3-3.5) g/dL Albumin/Globulin Ratio 0.7 L (1.2-2.2) [facility]ont Results Last 24 Hours: Microbiology 11/09/19 12:15 Aerobic Blood Culture - Preliminary Blood - Central Line NO GROWTH AFTER 2 DAYS Anaerobic Blood Culture - Preliminary NO GROWTH AFTER 2 DAYS 11/09/19 12:20 Aerobic Blood Culture - Preliminary Blood - Arterial Line - Direct Stick NO GROWTH AFTER 2 DAYS Anaerobic Blood Culture - Preliminary NO GROWTH AFTER 2 DAYS Med Orders - Current: Current Medications Acetaminophen (Tylenol Extra Strength) 500 mg PO Q8H PRN PRN Reason: MILD PAIN Last Admin: 11/07/19 20:59 Dose: 500 mg Albuterol/Ipratropium (Duoneb 3.0-0.5 Mg/3 Ml) 3 ml INH QIDRT [facility] Last Admin: 11/12/19 07:21 Dose: 3 ml Albuterol/Ipratropium (Duoneb 3.0-0.5 Mg/3 Ml) 3 ml INH ASDIRECTED PRN PRN Reason: BREATHING Last Admin: 11/12/19 01:57 Dose: 3 ml Aspirin (Halfprin) 81 mg PO DAILY [facility] Last Admin: 11/12/19 08:14 Dose: 81 mg Atorvastatin Calcium (Lipitor) 20 mg PO DAILY [facility] Last Admin: 11/12/19 08:14 Dose: 20 mg Calcium Carbonate/Glycine (Tums) 1,000 mg PO Q2H PRN PRN Reason: Indigestion Last Admin: 11/08/19 09:29 Dose: 1,000 mg Cyclobenzaprine HCl (Flexeril) 10 mg PO Q8H PRN PRN Reason: Muscle Spasm Last Admin: 11/03/19 07:42 Dose: 10 mg Dextrose/Water (Dextrose 50% In Water) 50 ml IVPUSH ONETIME PRN PRN Reason: ACCUCHECK LESS THAN 70 Diphenhydramine HCl (Benadryl) 50 mg IVPUSH Q4H PRN PRN Reason: ITCHING Furosemide (Lasix) 40 mg IVPUSH Q12H [facility] Last Admin: 11/11/19 20:53 Dose: 40 mg Glucagon (Glucagen) 1 mg IM ONETIME PRN PRN Reason: ACCUCHECK LESS THAN 70 Glycopyrrolate/Indacaterol (Utibron Neohaler 27.5-15.6 Mcg) 0 each IH BIDRT [facility] Last Admin: 11/12/19 07:21 Dose: 1 puff Heparin Sodium (Porcine) (Heparin Lock Flush 100 Units/Ml) 500 units FLUSH ASDIRECTED PRN PRN Reason: IV Use Last Admin: 11/09/19 04:43 Dose: 500 units Heparin Sodium (Porcine) (Heparin Sodium) 5,000 units SUBCUT Q12H [facility] Last Admin: 11/12/19 08:14 Dose: 5,000 units Heparin Sodium (Porcine) (Heparin Lock Flush 100 Units/Ml) 500 units FLUSH ASDIRECTED PRN PRN Reason: line maint Hydromorphone HCl (Dilaudid) 2 - 4 mg PO Q4H PRN PRN Reason: Pain Last Admin: 11/12/19 05:58 Dose: 4 mg Hydroxyzine HCl (Vistaril) 100 mg IM Q4H PRN PRN Reason: pain Last Admin: 11/05/19 21:08 Dose: 100 mg Piperacillin/Tazobactam/ (Dextrose 3.375 gm/ Premix) 50 mls @ 100 mls/hr IV Q6H [facility] Last Admin: 11/12/19 05:59 Dose: 100 mls/hr Azithromycin 500 mg/ Sodium (Chloride) 250 mls @ 250 mls/hr IV Q24H [facility] Last Admin: 11/11/19 12:22 Dose: 250 mls/hr Multivitamins/Minerals 10 ml/Chromium/Copper/Manganese/Seleni/Zn 1 ml/ Amino Ac/ Electrol/Dextrose/Calcium 1,011 mls @ 40 mls/hr IV .Q24H [facility] Last Admin: 11/11/19 12:22 Dose: 40 mls/hr Insulin Human Lispro (Humalog) 0 unit SUBCUT Q6H PRN; Protocol PRN Reason: CORRECTIONAL DOSING Last Admin: 11/03/19 10:20 Dose: 5 units Levothyroxine Sodium 300 mcg/ (Levothyroxine Sodium 25 mcg) 325 mcg PO DAILY@ 0600 [facility] Last Admin: 11/12/19 05:59 Dose: 325 mcg Lorazepam (Ativan) 0.5 mg IVPUSH Q2H PRN PRN Reason: Anxiety Last Admin: 11/11/19 10:33 Dose: 0.5 mg Nitroglycerin (Nitrostat) 0.4 mg SL ASDIRECTED PRN PRN Reason: Chest Pain Non-Formulary Medication (Total Parenteral Nutrition, Central) 1,000 ml .XX .Continue Order [facility] Stop: 11/12/19 10:00 Nystatin (Mycostatin) 5 ml PO QID [facility] Last Admin: 11/12/19 06:00 Dose: 5 ml Ondansetron HCl (Zofran) 4 mg IVPUSH Q4H PRN PRN Reason: Nausea/Vomiting Last Admin: 11/03/19 02:52 Dose: 4 mg Ondansetron HCl (Zofran Odt) 4 mg PO Q4H PRN PRN Reason: Nausea/Vomiting Pantoprazole Sodium (Protonix) 40 mg PO BIDAC [facility] Last Admin: 11/12/19 08:14 Dose: 40 mg Potassium Chloride (Klor-Con M20) 40 meq PO TID [facility] Last Admin: 11/12/19 08:15 Dose: 40 meq Testosterone Cypionate (Depo-Testosterone) 300 mg IM Q14D [facility] Last Admin: 11/01/19 11:00 Dose: 300 mg Zinc Gluconate (Zinc) 50 mg PO DAILY [facility] Last Admin: 11/12/19 08:14 Dose: 50 mg Discontinued Medications Acetaminophen (Tylenol Extra Strength) 1,000 mg PO Q8H [facility] Last Admin: 11/05/19 17:50 Dose: Not Given Albuterol (Ventolin Hfa) 0 gm INH Q4H PRN PRN Reason: * Albuterol/Ipratropium (Duoneb 3.0-0.5 Mg/3 Ml) 3 ml NEB ONETIME ONE Stop: 10/30/19 07:01 Last Admin: 10/30/19 07:28 Dose: 3 ml Bupivacaine HCl (Marcaine 0.5%) Confirm Administered Dose 50 ml .ROUTE .STK-MED ONE Stop: 10/30/19 06:34 Last Admin: 10/30/19 08:47 Dose: 5 ml Bupivacaine HCl (Marcaine 0.5%) Confirm Administered Dose 50 ml .ROUTE .STK-MED ONE Stop: 11/02/19 07:03 Calcium Carbonate (Caltrate 600+D 1500 Mg-400 Units) 1 tab PO BID [facility] Last Admin: 11/02/19 09:18 Dose: Not Given Ropivacaine 30 ml/Dexamethasone 8 mg/Epinephrine HCl 0.4 mg/ Sodium Chloride 47.6 ml 0 ml NERVRT ASDIRECTED [facility] Last Admin: 11/02/19 13:39 Dose: 80 syringe Cyanocobalamin (Vitamin B12) 1,000 mcg IM ONETIME ONE Stop: 11/04/19 09:01 Last Admin: 11/04/19 08:26 Dose: 1,000 mcg Dexamethasone (Dexamethasone) Confirm Administered Dose 4 mg .ROUTE .STK-MED ONE Stop: 11/02/19 08:40 Diphenoxylate HCl/Atropine (Lomotil 0.025-2.5 Mg) 1 tab PO QID [facility] Last Admin: 11/02/19 09:19 Dose: Not Given Docusate Sodium (Colace) 100 mg PO BID [facility] Last Admin: 11/06/19 20:01 Dose: Not Given Fentanyl (Sublimaze) Confirm Administered Dose 100 mcg .ROUTE .STK-MED ONE Stop: 10/30/19 07:13 Fentanyl (Sublimaze) Confirm Administered Dose 250 mcg .ROUTE .STK-MED ONE Stop: 11/02/19 08:40 Furosemide (Lasix) 10 mg IV ONETIME ONE Stop: 11/04/19 09:01 Last Admin: 11/04/19 08:51 Dose: 10 mg Furosemide (Lasix) 20 mg IV ONETIME ONE Stop: 11/04/19 12:31 Last Admin: 11/04/19 12:15 Dose: 20 mg Furosemide (Lasix) 20 mg IVPUSH ONETIME ONE Stop: 11/04/19 15:39 Last Admin: 11/04/19 15:49 Dose: 20 mg Furosemide (Lasix) 20 mg IV ONETIME ONE Stop: 11/05/19 12:01 Last Admin: 11/05/19 13:08 Dose: 20 mg Furosemide (Lasix) 40 mg IVPUSH ONETIME ONE Stop: 11/08/19 06:52 Last Admin: 11/08/19 07:18 Dose: 40 mg Furosemide (Lasix) 40 mg IVPUSH ONETIME ONE Stop: 11/08/19 23:27 Last Admin: 11/08/19 23:57 Dose: 40 mg Furosemide (Lasix) 40 mg IVPUSH ONETIME ONE Stop: 11/09/19 07:31 Last Admin: 11/09/19 08:35 Dose: 40 mg Furosemide (Lasix) 40 mg IVPUSH NOW ONE Stop: 11/09/19 19:01 Last Admin: 11/09/19 19:30 Dose: 40 mg Gabapentin (Neurontin) 300 mg PO TID [facility] Last Admin: 11/05/19 14:28 Dose: Not Given Glycopyrrolate (Robinul) Confirm Administered Dose 1 mg .ROUTE .STK-MED ONE Stop: 11/02/19 08:40 Heparin Sodium (Porcine) (Heparin Lock Flush 100 Units/Ml) Confirm Administered Dose 1,500 units .ROUTE .STK-MED ONE Stop: 10/30/19 06:34 Hydromorphone HCl (Dilaudid) 0.5 mg IVPUSH Q2H PRN PRN Reason: MODERATE PAIN Last Admin: 11/06/19 21:38 Dose: 0.5 mg Hydromorphone HCl (Dilaudid) 1 mg IV Q2H PRN PRN Reason: SEVERE PAIN Last Admin: 11/02/19 21:13 Dose: 1 mg Dextrose/Lactated Ringer's (Dextrose 5%-Lactated Ringers) 1,000 mls @ 100 mls/ hr IV ASDIRECTED [facility] Last Admin: 10/30/19 07:28 Dose: 100 mls/hr Cefazolin Sodium/Dextrose 2 gm (/ Premix) 50 mls @ 100 mls/hr IV ONETIME ONE Stop: 10/30/19 08:59 Last Admin: 10/30/19 08:14 Dose: 100 mls/hr Dextrose/Lactated Ringer's (Dextrose 5%-Lactated Ringers) 1,000 mls @ 0 mls/hr IV ASDIRECTED [facility] Last Admin: 11/01/19 20:16 Dose: 25 mls/hr Multivitamins/Minerals 10 ml/Chromium/Copper/Manganese/Seleni/Zn 1 ml/ Amino Ac/ Electrol/Dextrose/Calcium 1,011 mls @ 100 mls/hr IV .BY DURATION [facility] Stop: 10/31/19 17:00 Last Admin: 10/31/19 07:34 Dose: 100 mls/hr Amino Ac/Electrol/Dextrose/Calcium (Clinimix E 5/15) 1,000 mls @ 100 mls/hr IV .BY DURATION [facility] Stop: 10/31/19 17:00 Last Admin: 10/30/19 22:53 Dose: 100 mls/hr Fat Emulsion Intravenous (Intralipid 20%) 250 mls @ 21 mls/hr IV ONETIME ONE Stop: 10/31/19 03:54 Last Admin: 10/30/19 15:32 Dose: 21 mls/hr Albumin Human (Albumin 25%) 25 gm in 100 mls @ 25 mls/hr IV Q24H [facility] Stop: 11/02/19 14:59 Last Admin: 10/30/19 11:51 Dose: 25 mls/hr Albumin Human (Albumin 25%) 25 gm in 100 mls @ 25 mls/hr IV Q24H [facility] Stop: 11/02/19 18:59 Last Admin: 10/30/19 15:31 Dose: 25 mls/hr Magnesium Sulfate 2 gm/ Premix 50 mls @ 25 mls/hr IV Q6H [facility] Stop: 11/03/19 03:59 Last Admin: 11/02/19 09:15 Dose: 25 mls/hr Potassium Phosphate 20 mmole/ (Sodium Chloride) 106.6667 mls @ 35 mls/hr IV Q3H [facility] Stop: 10/31/19 18:59 Last Admin: 10/31/19 16:31 Dose: 35 mls/hr Albumin Human (Albumin 25%) 25 gm in 100 mls @ 25 mls/hr IV Q24H [facility] Stop: 11/02/19 23:59 Last Admin: 11/02/19 20:58 Dose: 25 mls/hr Albumin Human (Albumin 25%) 25 gm in 100 mls @ 25 mls/hr IV Q24H [facility] Stop: 11/03/19 03:59 Last Admin: 11/03/19 00:00 Dose: 25 mls/hr Fat Emulsion Intravenous (Intralipid 20%) 250 mls @ 21 mls/hr IV Q24H [facility] Last Admin: 10/31/19 17:52 Dose: 21 mls/hr Multivitamins/Minerals 10 ml/Chromium/Copper/Manganese/Seleni/Zn 1 ml/ Amino Ac/ Electrol/Dextrose/Calcium 1,011 mls @ 100 mls/hr IV .BY DURATION [facility] Last Admin: 11/02/19 01:37 Dose: 100 mls/hr Amino Ac/Electrol/Dextrose/Calcium (Clinimix E 5/15) 1,000 mls @ 100 mls/hr IV .BY DURATION [facility] Last Admin: 11/02/19 11:57 Dose: 100 mls/hr Cefoxitin Sodium 2 gm/ Sodium (Chloride) 50 mls @ 100 mls/hr IV ONETIME ONE Stop: 11/02/19 08:29 Last Admin: 11/02/19 12:27 Dose: 100 mls/hr Ketamine HCl 50 mg/ Sodium (Chloride) 50 mls @ 18 mls/hr IV ASDIRECTED [facility] Magnesium Sulfate 1.5 gm/ (Sodium Chloride) 103 mls @ 206 mls/hr IV ASDIRECTED [facility] Magnesium Sulfate 2.4 gm/ (Sodium Chloride) 254.8 mls @ 31.85 mls/hr IV ONETIME ONE Stop: 11/02/19 16:59 Lactated Ringer's (Ringers, Lactated) Confirm Administered Dose 1,000 mls @ as directed .ROUTE .[facility] ONE Stop: 11/02/19 11:07 Sodium Chloride (Normal Saline) Confirm Administered Dose 250 mls @ as directed .ROUTE .[facility] ONE Stop: 11/02/19 14:37 Dextrose/Lactated Ringer's (Dextrose 5%-Lactated Ringers) 1,000 mls @ 50 mls/ hr IV ASDIRECTED [facility] Last Admin: 11/03/19 02:38 Dose: 50 mls/hr Magnesium Sulfate 2 gm/ Premix 50 mls @ 25 mls/hr IV Q6H [facility] Stop: 11/03/19 07:59 Last Admin: 11/03/19 05:32 Dose: 25 mls/hr Cefoxitin Sodium 2 gm/ Sodium (Chloride) 50 mls @ 100 mls/hr IV Q6H [facility] Stop: 11/03/19 06:29 Last Admin: 11/03/19 05:36 Dose: 100 mls/hr Multivitamins/Minerals 10 ml/Chromium/Copper/Manganese/Seleni/Zn 1 ml/ Amino Ac/ Electrol/Dextrose/Calcium 1,011 mls @ 100 mls/hr IV .BY DURATION [facility] Stop: 11/03/19 18:30 Last Admin: 11/03/19 04:13 Dose: Not Given Amino Ac/Electrol/Dextrose/Calcium (Clinimix E 5/15) 1,000 mls @ 100 mls/hr IV .BY DURATION [facility] Stop: 11/03/19 18:30 Last Admin: 11/03/19 12:38 Dose: Not Given Dextrose/Lactated Ringer's (Dextrose 5%-Lactated Ringers) 1,000 mls @ 0 mls/hr IV ASDIRECTED [facility] Last Admin: 11/03/19 13:12 Dose: 25 mls/hr Multivitamins/Minerals 10 ml/Chromium/Copper/Manganese/Seleni/Zn 1 ml/ Amino Ac/ Electrol/Dextrose/Calcium 1,011 mls @ 100 mls/hr IV .BY DURATION [facility] Stop: 11/06/19 17:00 Last Admin: 11/06/19 09:20 Dose: 100 mls/hr Amino Ac/Electrol/Dextrose/Calcium (Clinimix E 5/15) 1,000 mls @ 100 mls/hr IV .BY DURATION [facility] Stop: 11/06/19 17:00 Last Admin: 11/05/19 23:17 Dose: 100 mls/hr Multivitamins/Minerals 10 ml/Chromium/Copper/Manganese/Seleni/Zn 1 ml/ Amino Ac/ Electrol/Dextrose/Calcium 1,011 mls @ 80 mls/hr IV .BY DURATION [facility] Stop: 11/07/19 09:45 Amino Ac/Electrol/Dextrose/Calcium (Clinimix E 5/15) 1,000 mls @ 80 mls/hr IV .BY DURATION [facility] Stop: 11/07/19 09:45 Last Admin: 11/06/19 21:42 Dose: 80 mls/hr Magnesium Sulfate 2 gm/ Premix 50 mls @ 25 mls/hr IV Q6H [facility] Stop: 11/10/19 05:59 Last Admin: 11/09/19 12:05 Dose: Not Given Multivitamins/Minerals 10 ml/Chromium/Copper/Manganese/Seleni/Zn 1 ml/ Amino Ac/ Electrol/Dextrose/Calcium 1,011 mls @ 40 mls/hr IV .BY DURATION [facility] Stop: 11/08/19 09:55 Last Admin: 11/07/19 10:47 Dose: 40 mls/hr Amino Ac/Electrol/Dextrose/Calcium (Clinimix E 5/15) 1,000 mls @ 40 mls/hr IV .BY DURATION [facility] Stop: 11/08/19 09:55 Albumin Human (Albumin 25%) 25 gm in 100 mls @ 25 mls/hr IV Q4H [facility] Stop: 11/08/19 16:29 Last Admin: 11/08/19 12:28 Dose: 25 mls/hr Albumin Human (Albumin 25%) 25 gm in 100 mls @ 25 mls/hr IV Q2H [facility] Stop: 11/09/19 09:59 Last Admin: 11/09/19 09:51 Dose: Not Given Piperacillin Sod/Tazobactam (Sod 3.375 gm/ Sodium Chloride) 50 mls @ 100 mls/ hr IV Q6H [facility] Last Admin: 11/09/19 05:49 Dose: 100 mls/hr Sodium Chloride (Normal Saline) 100 mls @ 4 mls/sec IV ASDIRECTED [facility] Stop: 11/09/19 11:00 Last Admin: 11/09/19 10:18 Dose: 4 mls/sec Linezolid 600 mg/ Premix 300 mls @ 300 mls/hr IV Q12H [facility] Last Admin: 11/10/19 23:43 Dose: 300 mls/hr Iopamidol (Isovue-300 (61%)) 50 ml PO ASDIRECTED [facility] Stop: 11/03/19 04:21 Last Admin: 11/03/19 04:35 Dose: 50 ml Iopamidol (Isovue-300 (61%)) 50 ml PO ASDIRECTED [facility] Stop: 11/06/19 04:01 Last Admin: 11/06/19 04:33 Dose: 50 ml Iopamidol (Isovue-370 (76%)) 100 ml IV . DIRECTED ONE Stop: 11/09/19 09:10 Last Admin: 11/09/19 10:19 Dose: 100 ml Ketamine HCl (Ketalar) 0 mg IV BOLUS [facility] Ketamine HCl (Ketalar) 0 mg IV ASDIRECTED [facility] Ketamine HCl (Ketalar) 30 mg IV ASDIRECTED [facility] Labetalol HCl (Normodyne) 5 mg IVPUSH Q5M PRN PRN Reason: SBP over 160 OR DBP over 95 Lidocaine/Epinephrine (Xylocaine 1% With Epinephrine 1:100,000) Confirm Administered Dose 50 ml .ROUTE .STK-MED ONE Stop: 10/30/19 06:34 Last Admin: 10/30/19 08:47 Dose: 5 ml Lidocaine/Epinephrine (Xylocaine 1% With Epinephrine 1:100,000) Confirm Administered Dose 50 ml .ROUTE .STK-MED ONE Stop: 11/02/19 07:04 Loperamide HCl (Imodium) 4 mg PO QID [facility] Last Admin: 11/02/19 09:19 Dose: Not Given Lorazepam (Ativan) 0.5 mg IVPUSH ONETIME ONE Stop: 11/09/19 11:33 Last Admin: 11/09/19 11:53 Dose: 0.5 mg Lorazepam (Ativan) Confirm Administered Dose 2 mg .ROUTE .STK-MED ONE Stop: 11/09/19 11:35 Last Admin: 11/09/19 11:56 Dose: Not Given Magnesium Oxide (Magnesium Oxide) 400 mg PO DAILY [facility] Last Admin: 11/02/19 09:19 Dose: Not Given Meropenem (Merrem) Confirm Administered Dose 500 mg .ROUTE .STK-MED ONE Stop: 11/02/19 07:03 Last Admin: 11/02/19 13:27 Dose: 500 mg Metoclopramide HCl (Reglan) 10 mg IVPUSH Q6H PRN PRN Reason: NAUSEA NOT CONTROL BY ZOFRAN Last Admin: 11/02/19 19:00 Dose: 10 mg Midazolam HCl (Versed 1 Mg/Ml) Confirm Administered Dose 2 mg .ROUTE .STK-MED ONE Stop: 10/30/19 07:13 Neostigmine Methylsulfate (Neostigmine) Confirm Administered Dose 5 mg .ROUTE .STK-MED ONE Stop: 11/02/19 08:40 Non-Formulary Medication (Total Parenteral Nutrition, Central) 1,000 ml .XX .Continue Order [facility] Stop: 11/01/19 18:00 Non-Formulary Medication (Tap Block, Pharmacy To Dose) 0 ml NERVRT ONARRIVE [facility] Stop: 11/02/19 08:01 Non-Formulary Medication (Total Parenteral Nutrition, Central) 1,000 ml .XX .Continue Order [facility] Stop: 11/03/19 08:01 Non-Formulary Medication (Total Parenteral Nutrition, Central) 1,000 ml .XX .Continue Order [facility] Stop: 11/06/19 12:00 Non-Formulary Medication (Total Parenteral Nutrition, Central) 1,000 ml .XX .Continue Order [facility] Stop: 11/07/19 21:00 Non-Formulary Medication (Total Parenteral Nutrition, Central) 1,000 ml .XX .Continue Order [facility] Stop: 11/08/19 10:00 Ondansetron HCl (Zofran) Confirm Administered Dose 4 mg .ROUTE .STK-MED ONE Stop: 11/02/19 08:40 Oxycodone HCl (Oxycodone) 5 mg PO Q6H PRN PRN Reason: PAIN Pantoprazole Sodium (Protonix) 40 mg PO ACBREAKFAST [facility] Last Admin: 03/02/20 11:34 Dose: 40 mg Pantoprazole Sodium (Protonix) 40 mg PO QPM [facility] Last Admin: 11/01/19 16:11 Dose: 40 mg Pantoprazole Sodium (Protonix Iv) 40 mg IVPUSH Q24H [facility] Last Admin: 11/03/19 18:13 Dose: 40 mg Pantoprazole Sodium (Protonix Iv) 40 mg IVPUSH Q12H [facility] Last Admin: 11/07/19 08:43 Dose: 40 mg Potassium Chloride (Klor-Con M20) 20 meq PO TID [facility] Last Admin: 11/11/19 08:01 Dose: 20 meq Propofol (Diprivan 20 Ml) Confirm Administered Dose 200 mg .ROUTE .STK-MED ONE Stop: 10/30/19 07:13 Propofol (Diprivan 20 Ml) Confirm Administered Dose 200 mg .ROUTE .STK-MED ONE Stop: 11/02/19 08:40 Rocuronium [place] (Zemuron) Confirm Administered Dose 50 mg .ROUTE .STK-MED ONE Stop: 11/02/19 08:40 Senna/Docusate Sodium (Senna Plus) 2 tab PO BID PRN PRN Reason: Constipation Succinylcholine Chloride (Quelicin) Confirm Administered Dose 200 mg .ROUTE .STK -MED ONE Stop: 11/02/19 08:40 - Exam Quality Assessment: Supplemental Oxygen General: Alert, Oriented, Cooperative, No Acute Distress Lungs: Crackles (mild upper chest anteriorly and a few posteriorly ). No: Normal Respiratory Effort (mild increase in work of breathing ), Wheezing Cardiovascular: Regular Rate, Regular Rhythm GI/Abdominal Exam: Soft, No Distention Extremities: No Pedal Edema. No: Increased Warmth Skin: Warm, Dry Wound/Incisions: Dressing Dry and Intact Psy/Mental Status: Alert, Normal Affect Sepsis Event Note - Evaluation Sepsis Screening Result: No Definite Risk - Focused Exam Vital Signs: Vital Signs Temp Pulse Resp BP Pulse Ox Pulse Ox 11/12/19 08:00 36.8 C 90 12 111/72 93 L 11/12/19 07:25 91 11/12/19 07:21 90 93 L 11/12/19 06:00 12 110/74 91 L 11/12/19 04:00 18 104/70 92 L 11/12/19 02:00 16 151/86 H 92 L 11/12/19 00:00 12 118/69 93 L 11/11/19 22:00 27 H 145/89 H 93 L Date Exam was Performed: 11/12/19 Time Exam was Performed: 12:36 - Problem List Review Problem List Initiated/Reviewed/Updated: Yes - My Orders Last 24 Hours: My Active Orders 11/11/19 10:03 BIPAP Adult [RT BiPAP/CPAP] [RC] ASDIRECTED 11/11/19 14:00 Potassium Chloride [Klor-Con M20] 40 meq PO TID 11/12/19 08:45 CXR [Chest 1V Frontal] [CR] Routine
[2019-11-12] MEDS: Furosemide 40 MG/4 ML VIAL IVPUSH SCH ×2 (09:46→20:52)
--- NOTE | 2019-11-12 12:38 | PCM.CONSN ---
- General Info Date of Service: 11/12/19 Subjective Update: There were no acute events overnight. He has continued to use the NIPPV and has tolerated it well. He reports that his shortness of breath is better today. He reports that his anxiety has decreased from yesterday. Good response to diuresis again yesterday. Heart rate is slowly improving but remains in the 90s. He has not had any fevers. Cultures have all been negative. I did repeat a chest x-ray today with a slight increase in his PCO2 but this appears to be clearing as well. - Review of Systems General: Denies: Fever - Patient Data Vitals - Most Recent: Last Vital Signs Temp 36.8 C 11/12/19 08:00 Pulse 94 11/12/19 10:52 Resp 22 H 11/12/19 10:00 BP 120/76 11/12/19 10:00 Pulse Ox 91 L 11/12/19 10:52 Weight - Most Recent: 54.658 kg I&O - Last 24 Hours: Intake & Output 11/11/19 11/12/19 11/12/19 22:59 06:59 14:59 Intake Total 1183 Output Total 1075 900 Balance -1075 283 Lab Results Last 24 Hours: Laboratory Results - last 24 hr 11/12/19 11/12/19 11/12/19 Range/Units 04:00 04:00 05:40 WBC 10.0 (4.5-11.0) K/uL RBC 3.24 L (4.30-5.90) M/uL Hgb 10.2 L (12.0-15.0) g/dL Hct 32.4 L (40.0-54.0) % MCV 100 H (80-98) fL MCH 32 H (27-31) pg MCHC 32 (32-36) % Plt Count 223 (150-400) K/uL Puncture Site Rt radial ABG pH 7.441 (7.350-7.450) ABG pCO2 49.3 H (35.0-42.0) mmHg ABG pO2 71.7 L (75.0-100.0) mmHg ABG HCO3 33.0 H (22.0-26.0) mmol/L ABG Total CO2 30.1 H (23.0-27.0) mmol/L ABG O2 Saturation 93.0 L (95.0-98.0) % ABG O2 Content 13.9 L (15.0-23.0) %vol ABG Base Excess 8.1 mm/L ABG Hemoglobin 10.9 L (13.5-18.0) g/dL ABG Oxyhemoglobin 90.2 % ABG Carboxyhemoglobin 1.1 (0.0-1.6) % ABG Methemoglobin 1.9 % Bob Test Passed O2 Delivery Device Bipap Oxygen Flow Rate L Sodium 142 (140-148) mmol/L Potassium 3.6 (3.6-5.2) mmol/L Chloride 105 (100-108) mmol/L Carbon Dioxide 34 H (21-32) mmol/L Anion Gap 6.6 (5.0-14.0) mmol/L BUN 26 H (7-18) mg/dL Creatinine 0.9 (0.8-1.3) mg/dL Est Cr Clr Drug Dosing 68.32 mL/min Estimated GFR (MDRD) > 60 (>60) Glucose 151 H (74-106) mg/dL Calcium 7.9 L (8.5-10.1) mg/dL Phosphorus 2.7 (2.5-4.9) mg/dL Total Bilirubin 1.4 H (0.2-1.0) mg/dL AST 48 H (15-37) U/L ALT 69 (12-78) U/L Alkaline Phosphatase 118 H (46-116) U/L NT-Pro-B Natriuret Pep 949 H (5-125) pg/mL Total Protein 4.5 L (6.4-8.2) g/dL Albumin 1.9 L (3.4-5.0) g/dL Globulin 2.6 (2.3-3.5) g/dL Albumin/Globulin Ratio 0.7 L (1.2-2.2) [place] Results Last 24 Hours: Microbiology 11/09/19 12:15 Aerobic Blood Culture - Preliminary Blood - Central Line NO GROWTH AFTER 3 DAYS Anaerobic Blood Culture - Preliminary NO GROWTH AFTER 3 DAYS 11/09/19 12:20 Aerobic Blood Culture - Preliminary Blood - Arterial Line - Direct Stick NO GROWTH AFTER 3 DAYS Anaerobic Blood Culture - Preliminary NO GROWTH AFTER 3 DAYS Med Orders - Current: Current Medications Acetaminophen (Tylenol Extra Strength) 500 mg PO Q8H PRN PRN Reason: MILD PAIN Last Admin: 11/07/19 20:59 Dose: 500 mg Albuterol/Ipratropium (Duoneb 3.0-0.5 Mg/3 Ml) 3 ml INH QIDRT [facility] Last Admin: 11/12/19 10:52 Dose: 3 ml Albuterol/Ipratropium (Duoneb 3.0-0.5 Mg/3 Ml) 3 ml INH ASDIRECTED PRN PRN Reason: BREATHING Last Admin: 11/12/19 01:57 Dose: 3 ml Aspirin (Halfprin) 81 mg PO DAILY [facility] Last Admin: 11/12/19 08:14 Dose: 81 mg Atorvastatin Calcium (Lipitor) 20 mg PO DAILY [facility] Last Admin: 11/12/19 08:14 Dose: 20 mg Calcium Carbonate/Glycine (Tums) 1,000 mg PO Q2H PRN PRN Reason: Indigestion Last Admin: 11/08/19 09:29 Dose: 1,000 mg Cyclobenzaprine HCl (Flexeril) 10 mg PO Q8H PRN PRN Reason: Muscle Spasm Last Admin: 11/03/19 07:42 Dose: 10 mg Dextrose/Water (Dextrose 50% In Water) 50 ml IVPUSH ONETIME PRN PRN Reason: ACCUCHECK LESS THAN 70 Diphenhydramine HCl (Benadryl) 50 mg IVPUSH Q4H PRN PRN Reason: ITCHING Furosemide (Lasix) 40 mg IVPUSH Q12H [facility] Last Admin: 11/12/19 09:46 Dose: 40 mg Glucagon (Glucagen) 1 mg IM ONETIME PRN PRN Reason: ACCUCHECK LESS THAN 70 Glycopyrrolate/Indacaterol (Utibron Neohaler 27.5-15.6 Mcg) 0 each IH BIDRT [facility] Last Admin: 11/12/19 07:21 Dose: 1 puff Heparin Sodium (Porcine) (Heparin Lock Flush 100 Units/Ml) 500 units FLUSH ASDIRECTED PRN PRN Reason: IV Use Last Admin: 11/09/19 04:43 Dose: 500 units Heparin Sodium (Porcine) (Heparin Sodium) 5,000 units SUBCUT Q12H [facility] Last Admin: 11/12/19 08:14 Dose: 5,000 units Heparin Sodium (Porcine) (Heparin Lock Flush 100 Units/Ml) 500 units FLUSH ASDIRECTED PRN PRN Reason: line maint Hydromorphone HCl (Dilaudid) 2 - 4 mg PO Q4H PRN PRN Reason: Pain Last Admin: 11/12/19 10:25 Dose: 4 mg Hydroxyzine HCl (Vistaril) 100 mg IM Q4H PRN PRN Reason: pain Last Admin: 11/05/19 21:08 Dose: 100 mg Piperacillin/Tazobactam/ (Dextrose 3.375 gm/ Premix) 50 mls @ 100 mls/hr IV Q6H [facility] Last Admin: 11/12/19 12:09 Dose: 100 mls/hr Azithromycin 500 mg/ Sodium (Chloride) 250 mls @ 250 mls/hr IV Q24H [facility] Last Admin: 11/11/19 12:22 Dose: 250 mls/hr Multivitamins/Minerals 10 ml/Chromium/Copper/Manganese/Seleni/Zn 1 ml/ Amino Ac/ Electrol/Dextrose/Calcium 1,011 mls @ 40 mls/hr IV .Q24H [facility] Last Admin: 11/11/19 12:22 Dose: 40 mls/hr Insulin Human Lispro (Humalog) 0 unit SUBCUT Q6H PRN; Protocol PRN Reason: CORRECTIONAL DOSING Last Admin: 11/03/19 10:20 Dose: 5 units Levothyroxine Sodium 300 mcg/ (Levothyroxine Sodium 25 mcg) 325 mcg PO DAILY@ 0600 [facility] Last Admin: 11/12/19 05:59 Dose: 325 mcg Lorazepam (Ativan) 0.5 mg IVPUSH Q2H PRN PRN Reason: Anxiety Last Admin: 11/11/19 10:33 Dose: 0.5 mg Nitroglycerin (Nitrostat) 0.4 mg SL ASDIRECTED PRN PRN Reason: Chest Pain Nystatin (Mycostatin) 5 ml PO QID [facility] Last Admin: 11/12/19 10:36 Dose: Not Given Ondansetron HCl (Zofran) 4 mg IVPUSH Q4H PRN PRN Reason: Nausea/Vomiting Last Admin: 11/03/19 02:52 Dose: 4 mg Ondansetron HCl (Zofran Odt) 4 mg PO Q4H PRN PRN Reason: Nausea/Vomiting Pantoprazole Sodium (Protonix) 40 mg PO BIDAC [facility] Last Admin: 11/12/19 08:14 Dose: 40 mg Potassium Chloride (Klor-Con M20) 40 meq PO TID [facility] Last Admin: 11/12/19 08:15 Dose: 40 meq Testosterone Cypionate (Depo-Testosterone) 300 mg IM Q14D [facility] Last Admin: 11/01/19 11:00 Dose: 300 mg Zinc Gluconate (Zinc) 50 mg PO DAILY [facility] Last Admin: 11/12/19 08:14 Dose: 50 mg Discontinued Medications Acetaminophen (Tylenol Extra Strength) 1,000 mg PO Q8H [facility] Last Admin: 11/05/19 17:50 Dose: Not Given Albuterol (Ventolin Hfa) 0 gm INH Q4H PRN PRN Reason: * Albuterol/Ipratropium (Duoneb 3.0-0.5 Mg/3 Ml) 3 ml NEB ONETIME ONE Stop: 10/30/19 07:01 Last Admin: 10/30/19 07:28 Dose: 3 ml Bupivacaine HCl (Marcaine 0.5%) Confirm Administered Dose 50 ml .ROUTE .STK-MED ONE Stop: 10/30/19 06:34 Last Admin: 10/30/19 08:47 Dose: 5 ml Bupivacaine HCl (Marcaine 0.5%) Confirm Administered Dose 50 ml .ROUTE .STK-MED ONE Stop: 11/02/19 07:03 Calcium Carbonate (Caltrate 600+D 1500 Mg-400 Units) 1 tab PO BID [facility] Last Admin: 11/02/19 09:18 Dose: Not Given Ropivacaine 30 ml/Dexamethasone 8 mg/Epinephrine HCl 0.4 mg/ Sodium Chloride 47.6 ml 0 ml NERVRT ASDIRECTED [facility] Last Admin: 11/02/19 13:39 Dose: 80 syringe Cyanocobalamin (Vitamin B12) 1,000 mcg IM ONETIME ONE Stop: 11/04/19 09:01 Last Admin: 11/04/19 08:26 Dose: 1,000 mcg Dexamethasone (Dexamethasone) Confirm Administered Dose 4 mg .ROUTE .STK-MED ONE Stop: 11/02/19 08:40 Diphenoxylate HCl/Atropine (Lomotil 0.025-2.5 Mg) 1 tab PO QID [facility] Last Admin: 11/02/19 09:19 Dose: Not Given Docusate Sodium (Colace) 100 mg PO BID [facility] Last Admin: 11/06/19 20:01 Dose: Not Given Fentanyl (Sublimaze) Confirm Administered Dose 100 mcg .ROUTE .STK-MED ONE Stop: 10/30/19 07:13 Fentanyl (Sublimaze) Confirm Administered Dose 250 mcg .ROUTE .STK-MED ONE Stop: 11/02/19 08:40 Furosemide (Lasix) 10 mg IV ONETIME ONE Stop: 11/04/19 09:01 Last Admin: 11/04/19 08:51 Dose: 10 mg Furosemide (Lasix) 20 mg IV ONETIME ONE Stop: 11/04/19 12:31 Last Admin: 11/04/19 12:15 Dose: 20 mg Furosemide (Lasix) 20 mg IVPUSH ONETIME ONE Stop: 11/04/19 15:39 Last Admin: 11/04/19 15:49 Dose: 20 mg Furosemide (Lasix) 20 mg IV ONETIME ONE Stop: 11/05/19 12:01 Last Admin: 11/05/19 13:08 Dose: 20 mg Furosemide (Lasix) 40 mg IVPUSH ONETIME ONE Stop: 11/08/19 06:52 Last Admin: 11/08/19 07:18 Dose: 40 mg Furosemide (Lasix) 40 mg IVPUSH ONETIME ONE Stop: 11/08/19 23:27 Last Admin: 11/08/19 23:57 Dose: 40 mg Furosemide (Lasix) 40 mg IVPUSH ONETIME ONE Stop: 11/09/19 07:31 Last Admin: 11/09/19 08:35 Dose: 40 mg Furosemide (Lasix) 40 mg IVPUSH NOW ONE Stop: 11/09/19 19:01 Last Admin: 11/09/19 19:30 Dose: 40 mg Gabapentin (Neurontin) 300 mg PO TID [facility] Last Admin: 11/05/19 14:28 Dose: Not Given Glycopyrrolate (Robinul) Confirm Administered Dose 1 mg .ROUTE .STK-MED ONE Stop: 11/02/19 08:40 Heparin Sodium (Porcine) (Heparin Lock Flush 100 Units/Ml) Confirm Administered Dose 1,500 units .ROUTE .STK-MED ONE Stop: 10/30/19 06:34 Hydromorphone HCl (Dilaudid) 0.5 mg IVPUSH Q2H PRN PRN Reason: MODERATE PAIN Last Admin: 11/06/19 21:38 Dose: 0.5 mg Hydromorphone HCl (Dilaudid) 1 mg IV Q2H PRN PRN Reason: SEVERE PAIN Last Admin: 11/02/19 21:13 Dose: 1 mg Dextrose/Lactated Ringer's (Dextrose 5%-Lactated Ringers) 1,000 mls @ 100 mls/ hr IV ASDIRECTED [facility] Last Admin: 10/30/19 07:28 Dose: 100 mls/hr Cefazolin Sodium/Dextrose 2 gm (/ Premix) 50 mls @ 100 mls/hr IV ONETIME ONE Stop: 10/30/19 08:59 Last Admin: 10/30/19 08:14 Dose: 100 mls/hr Dextrose/Lactated Ringer's (Dextrose 5%-Lactated Ringers) 1,000 mls @ 0 mls/hr IV ASDIRECTED [facility] Last Admin: 11/01/19 20:16 Dose: 25 mls/hr Multivitamins/Minerals 10 ml/Chromium/Copper/Manganese/Seleni/Zn 1 ml/ Amino Ac/ Electrol/Dextrose/Calcium 1,011 mls @ 100 mls/hr IV .BY DURATION [facility] Stop: 10/31/19 17:00 Last Admin: 10/31/19 07:34 Dose: 100 mls/hr Amino Ac/Electrol/Dextrose/Calcium (Clinimix E 5/15) 1,000 mls @ 100 mls/hr IV .BY DURATION [facility] Stop: 10/31/19 17:00 Last Admin: 10/30/19 22:53 Dose: 100 mls/hr Fat Emulsion Intravenous (Intralipid 20%) 250 mls @ 21 mls/hr IV ONETIME ONE Stop: 10/31/19 03:54 Last Admin: 10/30/19 15:32 Dose: 21 mls/hr Albumin Human (Albumin 25%) 25 gm in 100 mls @ 25 mls/hr IV Q24H [facility] Stop: 11/02/19 14:59 Last Admin: 10/30/19 11:51 Dose: 25 mls/hr Albumin Human (Albumin 25%) 25 gm in 100 mls @ 25 mls/hr IV Q24H [facility] Stop: 11/02/19 18:59 Last Admin: 10/30/19 15:31 Dose: 25 mls/hr Magnesium Sulfate 2 gm/ Premix 50 mls @ 25 mls/hr IV Q6H [facility] Stop: 11/03/19 03:59 Last Admin: 11/02/19 09:15 Dose: 25 mls/hr Potassium Phosphate 20 mmole/ (Sodium Chloride) 106.6667 mls @ 35 mls/hr IV Q3H [facility] Stop: 10/31/19 18:59 Last Admin: 10/31/19 16:31 Dose: 35 mls/hr Albumin Human (Albumin 25%) 25 gm in 100 mls @ 25 mls/hr IV Q24H [facility] Stop: 11/02/19 23:59 Last Admin: 11/02/19 20:58 Dose: 25 mls/hr Albumin Human (Albumin 25%) 25 gm in 100 mls @ 25 mls/hr IV Q24H [facility] Stop: 11/03/19 03:59 Last Admin: 11/03/19 00:00 Dose: 25 mls/hr Fat Emulsion Intravenous (Intralipid 20%) 250 mls @ 21 mls/hr IV Q24H [facility] Last Admin: 10/31/19 17:52 Dose: 21 mls/hr Multivitamins/Minerals 10 ml/Chromium/Copper/Manganese/Seleni/Zn 1 ml/ Amino Ac/ Electrol/Dextrose/Calcium 1,011 mls @ 100 mls/hr IV .BY DURATION [facility] Last Admin: 11/02/19 01:37 Dose: 100 mls/hr Amino Ac/Electrol/Dextrose/Calcium (Clinimix E 5/15) 1,000 mls @ 100 mls/hr IV .BY DURATION [facility] Last Admin: 11/02/19 11:57 Dose: 100 mls/hr Cefoxitin Sodium 2 gm/ Sodium (Chloride) 50 mls @ 100 mls/hr IV ONETIME ONE Stop: 11/02/19 08:29 Last Admin: 11/02/19 12:27 Dose: 100 mls/hr Ketamine HCl 50 mg/ Sodium (Chloride) 50 mls @ 18 mls/hr IV ASDIRECTED [facility] Magnesium Sulfate 1.5 gm/ (Sodium Chloride) 103 mls @ 206 mls/hr IV ASDIRECTED [facility] Magnesium Sulfate 2.4 gm/ (Sodium Chloride) 254.8 mls @ 31.85 mls/hr IV ONETIME ONE Stop: 11/02/19 16:59 Lactated Ringer's (Ringers, Lactated) Confirm Administered Dose 1,000 mls @ as directed .ROUTE .[facility] ONE Stop: 11/02/19 11:07 Sodium Chloride (Normal Saline) Confirm Administered Dose 250 mls @ as directed .ROUTE .[facility] ONE Stop: 11/02/19 14:37 Dextrose/Lactated Ringer's (Dextrose 5%-Lactated Ringers) 1,000 mls @ 50 mls/ hr IV ASDIRECTED [facility] Last Admin: 11/03/19 02:38 Dose: 50 mls/hr Magnesium Sulfate 2 gm/ Premix 50 mls @ 25 mls/hr IV Q6H [facility] Stop: 11/03/19 07:59 Last Admin: 11/03/19 05:32 Dose: 25 mls/hr Cefoxitin Sodium 2 gm/ Sodium (Chloride) 50 mls @ 100 mls/hr IV Q6H [facility] Stop: 11/03/19 06:29 Last Admin: 11/03/19 05:36 Dose: 100 mls/hr Multivitamins/Minerals 10 ml/Chromium/Copper/Manganese/Seleni/Zn 1 ml/ Amino Ac/ Electrol/Dextrose/Calcium 1,011 mls @ 100 mls/hr IV .BY DURATION [facility] Stop: 11/03/19 18:30 Last Admin: 11/03/19 04:13 Dose: Not Given Amino Ac/Electrol/Dextrose/Calcium (Clinimix E 5/15) 1,000 mls @ 100 mls/hr IV .BY DURATION [facility] Stop: 11/03/19 18:30 Last Admin: 11/03/19 12:38 Dose: Not Given Dextrose/Lactated Ringer's (Dextrose 5%-Lactated Ringers) 1,000 mls @ 0 mls/hr IV ASDIRECTED [facility] Last Admin: 11/03/19 13:12 Dose: 25 mls/hr Multivitamins/Minerals 10 ml/Chromium/Copper/Manganese/Seleni/Zn 1 ml/ Amino Ac/ Electrol/Dextrose/Calcium 1,011 mls @ 100 mls/hr IV .BY DURATION [facility] Stop: 11/06/19 17:00 Last Admin: 11/06/19 09:20 Dose: 100 mls/hr Amino Ac/Electrol/Dextrose/Calcium (Clinimix E 5/15) 1,000 mls @ 100 mls/hr IV .BY DURATION [facility] Stop: 11/06/19 17:00 Last Admin: 11/05/19 23:17 Dose: 100 mls/hr Multivitamins/Minerals 10 ml/Chromium/Copper/Manganese/Seleni/Zn 1 ml/ Amino Ac/ Electrol/Dextrose/Calcium 1,011 mls @ 80 mls/hr IV .BY DURATION [facility] Stop: 11/07/19 09:45 Amino Ac/Electrol/Dextrose/Calcium (Clinimix E 5/15) 1,000 mls @ 80 mls/hr IV .BY DURATION [facility] Stop: 11/07/19 09:45 Last Admin: 11/06/19 21:42 Dose: 80 mls/hr Magnesium Sulfate 2 gm/ Premix 50 mls @ 25 mls/hr IV Q6H [facility] Stop: 11/10/19 05:59 Last Admin: 11/09/19 12:05 Dose: Not Given Multivitamins/Minerals 10 ml/Chromium/Copper/Manganese/Seleni/Zn 1 ml/ Amino Ac/ Electrol/Dextrose/Calcium 1,011 mls @ 40 mls/hr IV .BY DURATION [facility] Stop: 11/08/19 09:55 Last Admin: 11/07/19 10:47 Dose: 40 mls/hr Amino Ac/Electrol/Dextrose/Calcium (Clinimix E 5/15) 1,000 mls @ 40 mls/hr IV .BY DURATION [facility] Stop: 11/08/19 09:55 Albumin Human (Albumin 25%) 25 gm in 100 mls @ 25 mls/hr IV Q4H [facility] Stop: 11/08/19 16:29 Last Admin: 11/08/19 12:28 Dose: 25 mls/hr Albumin Human (Albumin 25%) 25 gm in 100 mls @ 25 mls/hr IV Q2H [facility] Stop: 11/09/19 09:59 Last Admin: 11/09/19 09:51 Dose: Not Given Piperacillin Sod/Tazobactam (Sod 3.375 gm/ Sodium Chloride) 50 mls @ 100 mls/ hr IV Q6H [facility] Last Admin: 11/09/19 05:49 Dose: 100 mls/hr Sodium Chloride (Normal Saline) 100 mls @ 4 mls/sec IV ASDIRECTED [facility] Stop: 11/09/19 11:00 Last Admin: 11/09/19 10:18 Dose: 4 mls/sec Linezolid 600 mg/ Premix 300 mls @ 300 mls/hr IV Q12H [facility] Last Admin: 11/10/19 23:43 Dose: 300 mls/hr Iopamidol (Isovue-300 (61%)) 50 ml PO ASDIRECTED [facility] Stop: 11/03/19 04:21 Last Admin: 11/03/19 04:35 Dose: 50 ml Iopamidol (Isovue-300 (61%)) 50 ml PO ASDIRECTED [facility] Stop: 11/06/19 04:01 Last Admin: 11/06/19 04:33 Dose: 50 ml Iopamidol (Isovue-370 (76%)) 100 ml IV . DIRECTED ONE Stop: 11/09/19 09:10 Last Admin: 11/09/19 10:19 Dose: 100 ml Ketamine HCl (Ketalar) 0 mg IV BOLUS [facility] Ketamine HCl (Ketalar) 0 mg IV ASDIRECTED [facility] Ketamine HCl (Ketalar) 30 mg IV ASDIRECTED [facility] Labetalol HCl (Normodyne) 5 mg IVPUSH Q5M PRN PRN Reason: SBP over 160 OR DBP over 95 Lidocaine/Epinephrine (Xylocaine 1% With Epinephrine 1:100,000) Confirm Administered Dose 50 ml .ROUTE .STK-MED ONE Stop: 10/30/19 06:34 Last Admin: 10/30/19 08:47 Dose: 5 ml Lidocaine/Epinephrine (Xylocaine 1% With Epinephrine 1:100,000) Confirm Administered Dose 50 ml .ROUTE .STK-MED ONE Stop: 11/02/19 07:04 Loperamide HCl (Imodium) 4 mg PO QID [facility] Last Admin: 11/02/19 09:19 Dose: Not Given Lorazepam (Ativan) 0.5 mg IVPUSH ONETIME ONE Stop: 11/09/19 11:33 Last Admin: 11/09/19 11:53 Dose: 0.5 mg Lorazepam (Ativan) Confirm Administered Dose 2 mg .ROUTE .STK-MED ONE Stop: 11/09/19 11:35 Last Admin: 11/09/19 11:56 Dose: Not Given Magnesium Oxide (Magnesium Oxide) 400 mg PO DAILY [facility] Last Admin: 11/02/19 09:19 Dose: Not Given Meropenem (Merrem) Confirm Administered Dose 500 mg .ROUTE .STK-MED ONE Stop: 11/02/19 07:03 Last Admin: 11/02/19 13:27 Dose: 500 mg Metoclopramide HCl (Reglan) 10 mg IVPUSH Q6H PRN PRN Reason: NAUSEA NOT CONTROL BY ZOFRAN Last Admin: 11/02/19 19:00 Dose: 10 mg Midazolam HCl (Versed 1 Mg/Ml) Confirm Administered Dose 2 mg .ROUTE .STK-MED ONE Stop: 10/30/19 07:13 Neostigmine Methylsulfate (Neostigmine) Confirm Administered Dose 5 mg .ROUTE .K-MED ONE Stop: 11/02/19 08:40 Non-Formulary Medication (Total Parenteral Nutrition, Central) 1,000 ml .XX .Continue Order [facility] Stop: 11/01/19 18:00 Non-Formulary Medication (Tap Block, Pharmacy To Dose) 0 ml NERVRT ONARRIVE [facility] Stop: 11/02/19 08:01 Non-Formulary Medication (Total Parenteral Nutrition, Central) 1,000 ml .XX .Continue Order [facility] Stop: 11/03/19 08:01 Non-Formulary Medication (Total Parenteral Nutrition, Central) 1,000 ml .XX .Continue Order [facility] Stop: 11/06/19 12:00 Non-Formulary Medication (Total Parenteral Nutrition, Central) 1,000 ml .XX .Continue Order [facility] Stop: 11/07/19 21:00 Non-Formulary Medication (Total Parenteral Nutrition, Central) 1,000 ml .XX .Continue Order [facility] Stop: 11/08/19 10:00 Non-Formulary Medication (Total Parenteral Nutrition, Central) 1,000 ml .XX .Continue Order [facility] Stop: 11/12/19 10:00 Ondansetron HCl (Zofran) Confirm Administered Dose 4 mg .ROUTE .STK-MED ONE Stop: 11/02/19 08:40 Oxycodone HCl (Oxycodone) 5 mg PO Q6H PRN PRN Reason: PAIN Pantoprazole Sodium (Protonix) 40 mg PO ACBREAKFAST [facility] Last Admin: 10/30/19 11:34 Dose: 40 mg Pantoprazole Sodium (Protonix) 40 mg PO QPM [facility] Last Admin: 11/01/19 16:11 Dose: 40 mg Pantoprazole Sodium (Protonix Iv) 40 mg IVPUSH Q24H [facility] Last Admin: 11/03/19 18:13 Dose: 40 mg Pantoprazole Sodium (Protonix Iv) 40 mg IVPUSH Q12H [facility] Last Admin: 11/07/19 08:43 Dose: 40 mg Potassium Chloride (Klor-Con M20) 20 meq PO TID [facility] Last Admin: 11/11/19 08:01 Dose: 20 meq Propofol (Diprivan 20 Ml) Confirm Administered Dose 200 mg .ROUTE .STK-MED ONE Stop: 10/30/19 07:13 Propofol (Diprivan 20 Ml) Confirm Administered Dose 200 mg .ROUTE .STK-MED ONE Stop: 11/02/19 08:40 Rocuronium [place] (Zemuron) Confirm Administered Dose 50 mg .ROUTE .STK-MED ONE Stop: 11/02/19 08:40 Senna/Docusate Sodium (Senna Plus) 2 tab PO BID PRN PRN Reason: Constipation Succinylcholine Chloride (Quelicin) Confirm Administered Dose 200 mg .ROUTE .STK -MED ONE Stop: 11/02/19 08:40 - Exam Quality Assessment: Supplemental Oxygen General: Alert, Oriented, Cooperative, No Acute Distress Lungs: Normal Respiratory Effort, Crackles (Very mild diffuse, mostly anteriorly but much better than yesterday). No: Wheezing Cardiovascular: Regular Rhythm, Tachycardia GI/Abdominal Exam: Soft, No Distention Extremities: No Pedal Edema. No: Increased Warmth Skin: Warm, Dry Psy/Mental Status: Alert, Normal Affect Sepsis Event Note - Evaluation Sepsis Screening Result: No Definite Risk - Focused Exam Vital Signs: Vital Signs Temp Pulse Resp BP Pulse Ox Pulse Ox 11/12/19 10:52 94 91 L 11/12/19 10:00 22 H 120/76 95 11/12/19 08:00 36.8 C 90 12 111/72 93 L 11/12/19 07:25 91 11/12/19 07:21 90 93 L 11/12/19 06:00 12 110/74 91 L 11/12/19 04:00 18 104/70 92 L 11/12/19 02:00 16 151/86 H 92 L Date Exam was Performed: 11/12/19 Time Exam was Performed: 12:37 Consult PN Assessment/Plan Procedures: Procedures ALANINE AMINO (ALT) (SGPT) (02/27/19) ASSAY ALKALINE PHOSPHATASE (02/27/19) ASSAY GLUCOSE BLOOD QUANT (11/14/18) ASSAY OF CALCIUM (11/14/18) ASSAY OF CREATININE (11/14/18) ASSAY OF MAGNESIUM (02/27/19) ASSAY OF PHOSPHORUS (02/27/19) ASSAY OF PREALBUMIN (02/27/19) ASSAY OF SERUM ALBUMIN (02/27/19) ASSAY OF TRIGLYCERIDES (02/27/19) ASSAY OF UREA NITROGEN (11/14/18) ASSAY THYROID STIM HORMONE (11/14/18) BILIRUBIN TOTAL (02/27/19) BLOOD TYPING SEROLOGIC ABO (09/26/15) BLOOD TYPING SEROLOGIC RH(D) (09/26/15) C DIFF AMPLIFIED PROBE (09/23/18) CARDIOVASCULAR STRESS TEST (07/03/19) CHEST X-RAY 2VW FRONTAL&LATL (11/20/14) COMPLETE CBC AUTOMATED (11/20/14) COMPLETE CBC W/AUTO DIFF WBC (02/27/19) COMPREHEN METABOLIC PANEL (12/19/18) CT THORAX W/DYE (12/19/18) CULTR BACTERIA EXCEPT BLOOD (06/22/19) CULTURE OTHR SPECIMN AEROBIC (06/22/19) DRAIN LOWER LEG LESION (06/22/19) ELECTROLYTE PANEL (11/14/18) EMERGENCY DEPT VISIT (09/22/18) EXTRACRANIAL BILAT STUDY (12/21/18) GLUCOSE BLOOD TEST (11/20/14) HEPATIC FUNCTION PANEL (11/23/18) HT MUSCLE IMAGE SPECT MULT (07/03/19) HYDRATION IV INFUSION INIT (04/15/16) LAP VENT/ABD HERNIA REPAIR (11/20/14) LAPAROSCOPIC CHOLECYSTECTOMY (11/20/14) METABOLIC PANEL TOTAL CA (02/27/19) OVA AND PARASITES SMEARS (09/23/18) POLYSOM ANY AGE 1-3> GISELLA (02/03/16) RBC ANTIBODY SCREEN (09/26/15) ROUTINE VENIPUNCTURE (01/24/19) SMEAR COMPLEX STAIN (09/23/18) SMEAR GRAM STAIN (06/22/19) THER/PROPH/DIAG IV INF ADDON (04/15/16) THER/PROPH/DIAG IV INF INIT (04/15/16) TRANSFERASE (AST) (SGOT) (02/27/19) TTE W/DOPPLER COMPLETE (08/09/18) TX/PRO/DX INJ NEW DRUG ADDON (04/15/16) URINALYSIS AUTO W/SCOPE (09/22/18) US EXAM ABDOM COMPLETE (01/06/19) Problem List Initiated/Reviewed/Updated: Yes My Orders Last 24 Hours: My Active Orders 11/11/19 14:00 Potassium Chloride [Klor-Con M20] 40 meq PO TID 11/12/19 08:45 CXR [Chest 1V Frontal] [CR] Routine Plan: ASSESSMENT AND RECOMMENDATIONS ACUTE HYPOXIC RESPIRATORY FAILURE-so far the picture seems to be most consistent with fluid overload and CHF and a component of ARDS, versus less likely infection. Ongoing slow improvement and good response to diuresis. His PCO2 is slightly higher today but otherwise he looks well. Pulmonary examination is improving. Repeat chest x-ray shows some improvement in infiltrates and areas but also slight worsening in others. -Noninvasive positive pressure ventilation (increased pressures to 10/6) -Furosemide 40 mg IV twice daily -IV Pip/Tazo, and azithromycin -Follow-up cultures HYPOKALEMIA-mild at this time. Probably related to diuresis and has been improving with supplementation. -Increase supplementation to 40 mEq 3 times daily -Recheck in the morning STATUS POST REVISION DUODENAL ILEOSTOMY-stable. -Management per Dr. Nicolas HYPOTHYROIDISM-modest elevation in TSH despite ongoing thyroid replacement therapy with levothyroxine. Recent TSH elevated at 8 and dose of levothyroxine has been increased. 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 Fidencio Merino MD
[2019-11-12] MEDS: Azithromycin 500 MG in Sodium Chloride 0.9% 250 ML IV SCH (13:09)
[2019-11-12] MEDS: VITAMIN K IV SCH ×3 (13:11)
[2019-11-12] MEDS: [UNRECOGNIZED DRUG - OTHER] IV SCH ×3 (13:11)
[2019-11-12] MEDS: LYTES IV SCH ×3 (13:11)
[2019-11-12] MEDS: MVI IV SCH ×3 (13:11)
[2019-11-12] MEDS: CALCIUM IV SCH ×3 (13:11)
[2019-11-13] MEDS: HYDROmorphone 2 MG Tab PO PRN ×4 (00:14→23:55)
[2019-11-13] MEDS: Piperacillin/Tazobactam/Dext 3.375 GM in Premix Bag 1 BAG IV SCH ×5 (00:14→23:55)
[2019-11-13] MEDS: Nystatin Susp 100,000 Unit/ML 5 ML UD Cup PO SCH ×4 (05:01→21:11)
[2019-11-13] MEDS: Albuterol/Ipratropium 3.0-0.5 MG/3 ML Neb Soln INH SCH ×4 (07:00→20:19)
[2019-11-13] MEDS: Indacaterol/Glycopyrrolate 1 EA Cap.W.Dev Kit of 6 IH SCH ×2 (07:00→20:27)
[2019-11-13] MEDS: atorvaSTATin 20 MG Tab PO SCH (08:01)
[2019-11-13] MEDS: Aspirin 81 MG Tab.EC PO SCH (08:01)
[2019-11-13] MEDS: Potassium Chloride 20 MEQ Tab.ER PO SCH ×3 (08:01→20:21)
[2019-11-13] MEDS: Heparin Sodium 5,000 Units/ML Vial SUBCUT SCH ×2 (08:01→19:27)
[2019-11-13] MEDS: Zinc (Zinc Gluconate) 50 MG Tab PO SCH (08:03)
[2019-11-13] MEDS: Pantoprazole 40 MG Tab.CR PO SCH ×2 (08:06→16:46)
[2019-11-13] MEDS: Furosemide 40 MG/4 ML VIAL IVPUSH SCH ×3 (09:28→20:32)
--- NOTE | 2019-11-13 10:16 | PCM.CONSN ---
- General Info Date of Service: 11/13/19 Subjective Update: Mr. Griffith has been stable in his shown evidence of slow improvement in respiratory status. This morning he is tolerating nasal cannula, with adequate oxygenation. Remains afebrile and has been hemodynamically stable. Functional Status: Reports: Urinating - Review of Systems Pulmonary: Reports: Shortness of Breath. Denies: Cough, Sputum, Hemoptysis, Wheezing Cardiovascular: Reports: No Symptoms Gastrointestinal: Reports: No Symptoms - Patient Data Vitals - Most Recent: Last Vital Signs Temp 97.8 F 11/13/19 08:00 Pulse 90 11/13/19 08:00 Resp 17 11/13/19 08:00 BP 95/60 11/13/19 08:00 Pulse Ox 90 L 11/13/19 08:00 Weight - Most Recent: 120 lb 8 oz I&O - Last 24 Hours: Intake & Output 11/12/19 11/13/19 11/13/19 22:59 06:59 14:59 Intake Total 1110 Output Total 1400 825 Balance -1400 285 Lab Results Last 24 Hours: Laboratory Results - last 24 hr 11/13/19 11/13/19 11/13/19 Range/Units 05:12 05:12 05:12 WBC 9.3 (4.5-11.0) K/uL RBC 3.43 L (4.30-5.90) M/uL Hgb 10.6 L (12.0-15.0) g/dL Hct 34.6 L (40.0-54.0) % MCV 101 H (80-98) fL MCH 31 (27-31) pg MCHC 31 L (32-36) % Plt Count 260 (150-400) K/uL Puncture Site Rt radial ABG pH 7.451 H (7.350-7.450) ABG pCO2 48.4 H (35.0-42.0) mmHg ABG pO2 76.3 (75.0-100.0) mmHg ABG HCO3 33.2 H (22.0-26.0) mmol/L ABG Total CO2 30.1 H (23.0-27.0) mmol/L ABG O2 Saturation 94.3 L (95.0-98.0) % ABG O2 Content 14.4 L (15.0-23.0) %vol ABG Base Excess 8.4 mm/L ABG Hemoglobin 11.1 L (13.5-18.0) g/dL ABG Oxyhemoglobin 91.7 % ABG Carboxyhemoglobin 1.1 (0.0-1.6) % ABG Methemoglobin 1.7 % Bob Test Passed O2 Delivery Device Bipap Sodium 141 (140-148) mmol/L Potassium 4.2 (3.6-5.2) mmol/L Chloride 106 (100-108) mmol/L Carbon Dioxide 34 H (21-32) mmol/L Anion Gap 5.2 (5.0-14.0) mmol/L BUN 30 H (7-18) mg/dL Creatinine 1.0 (0.8-1.3) mg/dL Est Cr Clr Drug Dosing 61.49 mL/min Estimated GFR (MDRD) > 60 (>60) Glucose 137 H (74-106) mg/dL Calcium 8.0 L (8.5-10.1) mg/dL Phosphorus 3.1 (2.5-4.9) mg/dL Magnesium 1.8 (1.8-2.4) mg/dL Total Bilirubin 1.3 H (0.2-1.0) mg/dL AST 81 H (15-37) U/L ALT 108 H (12-78) U/L Alkaline Phosphatase 130 H (46-116) U/L NT-Pro-B Natriuret Pep 789 H (5-125) pg/mL Total Protein 4.8 L (6.4-8.2) g/dL Albumin 1.9 L (3.4-5.0) g/dL Globulin 2.9 (2.3-3.5) g/dL Albumin/Globulin Ratio 0.7 L (1.2-2.2) [place] Results Last 24 Hours: Microbiology 11/09/19 12:15 Aerobic Blood Culture - Preliminary Blood - Central Line NO GROWTH AFTER 3 DAYS Anaerobic Blood Culture - Preliminary NO GROWTH AFTER 3 DAYS 11/09/19 12:20 Aerobic Blood Culture - Preliminary Blood - Arterial Line - Direct Stick NO GROWTH AFTER 3 DAYS Anaerobic Blood Culture - Preliminary NO GROWTH AFTER 3 DAYS Med Orders - Current: Current Medications Acetaminophen (Tylenol Extra Strength) 500 mg PO Q8H PRN PRN Reason: MILD PAIN Last Admin: 11/07/19 20:59 Dose: 500 mg Albuterol/Ipratropium (Duoneb 3.0-0.5 Mg/3 Ml) 3 ml INH QIDRT [facility] Last Admin: 11/13/19 07:00 Dose: 3 ml Albuterol/Ipratropium (Duoneb 3.0-0.5 Mg/3 Ml) 3 ml INH ASDIRECTED PRN PRN Reason: BREATHING Last Admin: 11/12/19 01:57 Dose: 3 ml Aspirin (Halfprin) 81 mg PO DAILY [facility] Last Admin: 11/13/19 08:01 Dose: 81 mg Atorvastatin Calcium (Lipitor) 20 mg PO DAILY [facility] Last Admin: 11/13/19 08:01 Dose: 20 mg Calcium Carbonate/Glycine (Tums) 1,000 mg PO Q2H PRN PRN Reason: Indigestion Last Admin: 11/08/19 09:29 Dose: 1,000 mg Cyclobenzaprine HCl (Flexeril) 10 mg PO Q8H PRN PRN Reason: Muscle Spasm Last Admin: 11/03/19 07:42 Dose: 10 mg Dextrose/Water (Dextrose 50% In Water) 50 ml IVPUSH ONETIME PRN PRN Reason: ACCUCHECK LESS THAN 70 Diphenhydramine HCl (Benadryl) 50 mg IVPUSH Q4H PRN PRN Reason: ITCHING Furosemide (Lasix) 40 mg IVPUSH Q12H [facility] Last Admin: 11/13/19 09:28 Dose: 40 mg Glucagon (Glucagen) 1 mg IM ONETIME PRN PRN Reason: ACCUCHECK LESS THAN 70 Glycopyrrolate/Indacaterol (Utibron Neohaler 27.5-15.6 Mcg) 0 each IH BIDRT [facility] Last Admin: 11/13/19 07:00 Dose: 1 puff Heparin Sodium (Porcine) (Heparin Lock Flush 100 Units/Ml) 500 units FLUSH ASDIRECTED PRN PRN Reason: IV Use Last Admin: 11/09/19 04:43 Dose: 500 units Heparin Sodium (Porcine) (Heparin Sodium) 5,000 units SUBCUT Q12H [facility] Last Admin: 11/13/19 08:01 Dose: 5,000 units Heparin Sodium (Porcine) (Heparin Lock Flush 100 Units/Ml) 500 units FLUSH ASDIRECTED PRN PRN Reason: line maint Hydromorphone HCl (Dilaudid) 2 - 4 mg PO Q4H PRN PRN Reason: Pain Last Admin: 11/13/19 04:39 Dose: 4 mg Hydroxyzine HCl (Vistaril) 100 mg IM Q4H PRN PRN Reason: pain Last Admin: 11/05/19 21:08 Dose: 100 mg Piperacillin/Tazobactam/ (Dextrose 3.375 gm/ Premix) 50 mls @ 100 mls/hr IV Q6H [facility] Last Admin: 11/13/19 05:09 Dose: 100 mls/hr Azithromycin 500 mg/ Sodium (Chloride) 250 mls @ 250 mls/hr IV Q24H [facility] Last Admin: 11/12/19 13:09 Dose: 250 mls/hr Multivitamins/Minerals 10 ml/Chromium/Copper/Manganese/Seleni/Zn 1 ml/ Amino Ac/ Electrol/Dextrose/Calcium 1,011 mls @ 40 mls/hr IV .Q24H [facility] Last Admin: 11/12/19 13:11 Dose: 40 mls/hr Insulin Human Lispro (Humalog) 0 unit SUBCUT Q6H PRN; Protocol PRN Reason: CORRECTIONAL DOSING Last Admin: 11/03/19 10:20 Dose: 5 units Levothyroxine Sodium 300 mcg/ (Levothyroxine Sodium 25 mcg) 325 mcg PO DAILY@ 0600 [facility] Last Admin: 11/13/19 05:09 Dose: 325 mcg Lorazepam (Ativan) 0.5 mg IVPUSH Q2H PRN PRN Reason: Anxiety Last Admin: 11/11/19 10:33 Dose: 0.5 mg Nitroglycerin (Nitrostat) 0.4 mg SL ASDIRECTED PRN PRN Reason: Chest Pain Nystatin (Mycostatin) 5 ml PO QID [facility] Last Admin: 11/13/19 05:01 Dose: Not Given Ondansetron HCl (Zofran) 4 mg IVPUSH Q4H PRN PRN Reason: Nausea/Vomiting Last Admin: 11/03/19 02:52 Dose: 4 mg Ondansetron HCl (Zofran Odt) 4 mg PO Q4H PRN PRN Reason: Nausea/Vomiting Pantoprazole Sodium (Protonix) 40 mg PO BIDAC [facility] Last Admin: 11/13/19 08:06 Dose: 40 mg Potassium Chloride (Klor-Con M20) 40 meq PO TID [facility] Last Admin: 11/13/19 08:01 Dose: 40 meq Testosterone Cypionate (Depo-Testosterone) 300 mg IM Q14D [facility] Last Admin: 11/01/19 11:00 Dose: 300 mg Zinc Gluconate (Zinc) 50 mg PO DAILY [facility] Last Admin: 11/13/19 08:03 Dose: 50 mg Discontinued Medications Acetaminophen (Tylenol Extra Strength) 1,000 mg PO Q8H [facility] Last Admin: 11/05/19 17:50 Dose: Not Given Albuterol (Ventolin Hfa) 0 gm INH Q4H PRN PRN Reason: * Albuterol/Ipratropium (Duoneb 3.0-0.5 Mg/3 Ml) 3 ml NEB ONETIME ONE Stop: 10/30/19 07:01 Last Admin: 10/30/19 07:28 Dose: 3 ml Bupivacaine HCl (Marcaine 0.5%) Confirm Administered Dose 50 ml .ROUTE .STK-MED ONE Stop: 10/30/19 06:34 Last Admin: 10/30/19 08:47 Dose: 5 ml Bupivacaine HCl (Marcaine 0.5%) Confirm Administered Dose 50 ml .ROUTE .STK-MED ONE Stop: 11/02/19 07:03 Calcium Carbonate (Caltrate 600+D 1500 Mg-400 Units) 1 tab PO BID [facility] Last Admin: 11/02/19 09:18 Dose: Not Given Ropivacaine 30 ml/Dexamethasone 8 mg/Epinephrine HCl 0.4 mg/ Sodium Chloride 47.6 ml 0 ml NERVRT ASDIRECTED [facility] Last Admin: 11/02/19 13:39 Dose: 80 syringe Cyanocobalamin (Vitamin B12) 1,000 mcg IM ONETIME ONE Stop: 11/04/19 09:01 Last Admin: 11/04/19 08:26 Dose: 1,000 mcg Dexamethasone (Dexamethasone) Confirm Administered Dose 4 mg .ROUTE .STK-MED ONE Stop: 11/02/19 08:40 Diphenoxylate HCl/Atropine (Lomotil 0.025-2.5 Mg) 1 tab PO QID [facility] Last Admin: 11/02/19 09:19 Dose: Not Given Docusate Sodium (Colace) 100 mg PO BID [facility] Last Admin: 11/06/19 20:01 Dose: Not Given Fentanyl (Sublimaze) Confirm Administered Dose 100 mcg .ROUTE .STK-MED ONE Stop: 10/30/19 07:13 Fentanyl (Sublimaze) Confirm Administered Dose 250 mcg .ROUTE .STK-MED ONE Stop: 11/02/19 08:40 Furosemide (Lasix) 10 mg IV ONETIME ONE Stop: 11/04/19 09:01 Last Admin: 11/04/19 08:51 Dose: 10 mg Furosemide (Lasix) 20 mg IV ONETIME ONE Stop: 11/04/19 12:31 Last Admin: 11/04/19 12:15 Dose: 20 mg Furosemide (Lasix) 20 mg IVPUSH ONETIME ONE Stop: 11/04/19 15:39 Last Admin: 11/04/19 15:49 Dose: 20 mg Furosemide (Lasix) 20 mg IV ONETIME ONE Stop: 11/05/19 12:01 Last Admin: 11/05/19 13:08 Dose: 20 mg Furosemide (Lasix) 40 mg IVPUSH ONETIME ONE Stop: 11/08/19 06:52 Last Admin: 11/08/19 07:18 Dose: 40 mg Furosemide (Lasix) 40 mg IVPUSH ONETIME ONE Stop: 11/08/19 23:27 Last Admin: 11/08/19 23:57 Dose: 40 mg Furosemide (Lasix) 40 mg IVPUSH ONETIME ONE Stop: 11/09/19 07:31 Last Admin: 11/09/19 08:35 Dose: 40 mg Furosemide (Lasix) 40 mg IVPUSH NOW ONE Stop: 11/09/19 19:01 Last Admin: 11/09/19 19:30 Dose: 40 mg Gabapentin (Neurontin) 300 mg PO TID [facility] Last Admin: 11/05/19 14:28 Dose: Not Given Glycopyrrolate (Robinul) Confirm Administered Dose 1 mg .ROUTE .STK-MED ONE Stop: 11/02/19 08:40 Heparin Sodium (Porcine) (Heparin Lock Flush 100 Units/Ml) Confirm Administered Dose 1,500 units .ROUTE .STK-MED ONE Stop: 10/30/19 06:34 Hydromorphone HCl (Dilaudid) 0.5 mg IVPUSH Q2H PRN PRN Reason: MODERATE PAIN Last Admin: 11/06/19 21:38 Dose: 0.5 mg Hydromorphone HCl (Dilaudid) 1 mg IV Q2H PRN PRN Reason: SEVERE PAIN Last Admin: 11/02/19 21:13 Dose: 1 mg Dextrose/Lactated Ringer's (Dextrose 5%-Lactated Ringers) 1,000 mls @ 100 mls/ hr IV ASDIRECTED [facility] Last Admin: 10/30/19 07:28 Dose: 100 mls/hr Cefazolin Sodium/Dextrose 2 gm (/ Premix) 50 mls @ 100 mls/hr IV ONETIME ONE Stop: 10/30/19 08:59 Last Admin: 10/30/19 08:14 Dose: 100 mls/hr Dextrose/Lactated Ringer's (Dextrose 5%-Lactated Ringers) 1,000 mls @ 0 mls/hr IV ASDIRECTED [facility] Last Admin: 11/01/19 20:16 Dose: 25 mls/hr Multivitamins/Minerals 10 ml/Chromium/Copper/Manganese/Seleni/Zn 1 ml/ Amino Ac/ Electrol/Dextrose/Calcium 1,011 mls @ 100 mls/hr IV .BY DURATION [facility] Stop: 10/31/19 17:00 Last Admin: 10/31/19 07:34 Dose: 100 mls/hr Amino Ac/Electrol/Dextrose/Calcium (Clinimix E 5/15) 1,000 mls @ 100 mls/hr IV .BY DURATION [facility] Stop: 10/31/19 17:00 Last Admin: 10/30/19 22:53 Dose: 100 mls/hr Fat Emulsion Intravenous (Intralipid 20%) 250 mls @ 21 mls/hr IV ONETIME ONE Stop: 10/31/19 03:54 Last Admin: 10/30/19 15:32 Dose: 21 mls/hr Albumin Human (Albumin 25%) 25 gm in 100 mls @ 25 mls/hr IV Q24H [facility] Stop: 11/02/19 14:59 Last Admin: 10/30/19 11:51 Dose: 25 mls/hr Albumin Human (Albumin 25%) 25 gm in 100 mls @ 25 mls/hr IV Q24H [facility] Stop: 11/02/19 18:59 Last Admin: 10/30/19 15:31 Dose: 25 mls/hr Magnesium Sulfate 2 gm/ Premix 50 mls @ 25 mls/hr IV Q6H [facility] Stop: 11/03/19 03:59 Last Admin: 11/02/19 09:15 Dose: 25 mls/hr Potassium Phosphate 20 mmole/ (Sodium Chloride) 106.6667 mls @ 35 mls/hr IV Q3H [facility] Stop: 10/31/19 18:59 Last Admin: 10/31/19 16:31 Dose: 35 mls/hr Albumin Human (Albumin 25%) 25 gm in 100 mls @ 25 mls/hr IV Q24H [facility] Stop: 11/02/19 23:59 Last Admin: 11/02/19 20:58 Dose: 25 mls/hr Albumin Human (Albumin 25%) 25 gm in 100 mls @ 25 mls/hr IV Q24H [facility] Stop: 11/03/19 03:59 Last Admin: 11/03/19 00:00 Dose: 25 mls/hr Fat Emulsion Intravenous (Intralipid 20%) 250 mls @ 21 mls/hr IV Q24H [facility] Last Admin: 10/31/19 17:52 Dose: 21 mls/hr Multivitamins/Minerals 10 ml/Chromium/Copper/Manganese/Seleni/Zn 1 ml/ Amino Ac/ Electrol/Dextrose/Calcium 1,011 mls @ 100 mls/hr IV .BY DURATION [facility] Last Admin: 11/02/19 01:37 Dose: 100 mls/hr Amino Ac/Electrol/Dextrose/Calcium (Clinimix E 5/15) 1,000 mls @ 100 mls/hr IV .BY DURATION [facility] Last Admin: 11/02/19 11:57 Dose: 100 mls/hr Cefoxitin Sodium 2 gm/ Sodium (Chloride) 50 mls @ 100 mls/hr IV ONETIME ONE Stop: 11/02/19 08:29 Last Admin: 11/02/19 12:27 Dose: 100 mls/hr Ketamine HCl 50 mg/ Sodium (Chloride) 50 mls @ 18 mls/hr IV ASDIRECTED [facility] Magnesium Sulfate 1.5 gm/ (Sodium Chloride) 103 mls @ 206 mls/hr IV ASDIRECTED [facility] Magnesium Sulfate 2.4 gm/ (Sodium Chloride) 254.8 mls @ 31.85 mls/hr IV ONETIME ONE Stop: 11/02/19 16:59 Lactated Ringer's (Ringers, Lactated) Confirm Administered Dose 1,000 mls @ as directed .ROUTE .[facility] ONE Stop: 11/02/19 11:07 Sodium Chloride (Normal Saline) Confirm Administered Dose 250 mls @ as directed .ROUTE .[facility] ONE Stop: 11/02/19 14:37 Dextrose/Lactated Ringer's (Dextrose 5%-Lactated Ringers) 1,000 mls @ 50 mls/ hr IV ASDIRECTED [facility] Last Admin: 11/03/19 02:38 Dose: 50 mls/hr Magnesium Sulfate 2 gm/ Premix 50 mls @ 25 mls/hr IV Q6H [facility] Stop: 11/03/19 07:59 Last Admin: 11/03/19 05:32 Dose: 25 mls/hr Cefoxitin Sodium 2 gm/ Sodium (Chloride) 50 mls @ 100 mls/hr IV Q6H [facility] Stop: 11/03/19 06:29 Last Admin: 11/03/19 05:36 Dose: 100 mls/hr Multivitamins/Minerals 10 ml/Chromium/Copper/Manganese/Seleni/Zn 1 ml/ Amino Ac/ Electrol/Dextrose/Calcium 1,011 mls @ 100 mls/hr IV .BY DURATION [facility] Stop: 11/03/19 18:30 Last Admin: 11/03/19 04:13 Dose: Not Given Amino Ac/Electrol/Dextrose/Calcium (Clinimix E 5/15) 1,000 mls @ 100 mls/hr IV .BY DURATION [facility] Stop: 11/03/19 18:30 Last Admin: 11/03/19 12:38 Dose: Not Given Dextrose/Lactated Ringer's (Dextrose 5%-Lactated Ringers) 1,000 mls @ 0 mls/hr IV ASDIRECTED [facility] Last Admin: 11/03/19 13:12 Dose: 25 mls/hr Multivitamins/Minerals 10 ml/Chromium/Copper/Manganese/Seleni/Zn 1 ml/ Amino Ac/ Electrol/Dextrose/Calcium 1,011 mls @ 100 mls/hr IV .BY DURATION [facility] Stop: 11/06/19 17:00 Last Admin: 11/06/19 09:20 Dose: 100 mls/hr Amino Ac/Electrol/Dextrose/Calcium (Clinimix E 5/15) 1,000 mls @ 100 mls/hr IV .BY DURATION [facility] Stop: 11/06/19 17:00 Last Admin: 11/05/19 23:17 Dose: 100 mls/hr Multivitamins/Minerals 10 ml/Chromium/Copper/Manganese/Seleni/Zn 1 ml/ Amino Ac/ Electrol/Dextrose/Calcium 1,011 mls @ 80 mls/hr IV .BY DURATION [facility] Stop: 11/07/19 09:45 Amino Ac/Electrol/Dextrose/Calcium (Clinimix E 5/15) 1,000 mls @ 80 mls/hr IV .BY DURATION [facility] Stop: 11/07/19 09:45 Last Admin: 11/06/19 21:42 Dose: 80 mls/hr Magnesium Sulfate 2 gm/ Premix 50 mls @ 25 mls/hr IV Q6H [facility] Stop: 11/10/19 05:59 Last Admin: 11/09/19 12:05 Dose: Not Given Multivitamins/Minerals 10 ml/Chromium/Copper/Manganese/Seleni/Zn 1 ml/ Amino Ac/ Electrol/Dextrose/Calcium 1,011 mls @ 40 mls/hr IV .BY DURATION [facility] Stop: 11/08/19 09:55 Last Admin: 11/07/19 10:47 Dose: 40 mls/hr Amino Ac/Electrol/Dextrose/Calcium (Clinimix E 5/15) 1,000 mls @ 40 mls/hr IV .BY DURATION [facility] Stop: 11/08/19 09:55 Albumin Human (Albumin 25%) 25 gm in 100 mls @ 25 mls/hr IV Q4H [facility] Stop: 11/08/19 16:29 Last Admin: 11/08/19 12:28 Dose: 25 mls/hr Albumin Human (Albumin 25%) 25 gm in 100 mls @ 25 mls/hr IV Q2H [facility] Stop: 11/09/19 09:59 Last Admin: 11/09/19 09:51 Dose: Not Given Piperacillin Sod/Tazobactam (Sod 3.375 gm/ Sodium Chloride) 50 mls @ 100 mls/ hr IV Q6H [facility] Last Admin: 11/09/19 05:49 Dose: 100 mls/hr Sodium Chloride (Normal Saline) 100 mls @ 4 mls/sec IV ASDIRECTED [facility] Stop: 11/09/19 11:00 Last Admin: 11/09/19 10:18 Dose: 4 mls/sec Linezolid 600 mg/ Premix 300 mls @ 300 mls/hr IV Q12H [facility] Last Admin: 11/10/19 23:43 Dose: 300 mls/hr Iopamidol (Isovue-300 (61%)) 50 ml PO ASDIRECTED [facility] Stop: 11/03/19 04:21 Last Admin: 11/03/19 04:35 Dose: 50 ml Iopamidol (Isovue-300 (61%)) 50 ml PO ASDIRECTED [facility] Stop: 11/06/19 04:01 Last Admin: 11/06/19 04:33 Dose: 50 ml Iopamidol (Isovue-370 (76%)) 100 ml IV . DIRECTED ONE Stop: 11/09/19 09:10 Last Admin: 11/09/19 10:19 Dose: 100 ml Ketamine HCl (Ketalar) 0 mg IV BOLUS [facility] Ketamine HCl (Ketalar) 0 mg IV ASDIRECTED [facility] Ketamine HCl (Ketalar) 30 mg IV ASDIRECTED [facility] Labetalol HCl (Normodyne) 5 mg IVPUSH Q5M PRN PRN Reason: SBP over 160 OR DBP over 95 Lidocaine/Epinephrine (Xylocaine 1% With Epinephrine 1:100,000) Confirm Administered Dose 50 ml .ROUTE .STK-MED ONE Stop: 10/30/19 06:34 Last Admin: 10/30/19 08:47 Dose: 5 ml Lidocaine/Epinephrine (Xylocaine 1% With Epinephrine 1:100,000) Confirm Administered Dose 50 ml .ROUTE .STK-MED ONE Stop: 11/02/19 07:04 Loperamide HCl (Imodium) 4 mg PO QID [facility] Last Admin: 11/02/19 09:19 Dose: Not Given Lorazepam (Ativan) 0.5 mg IVPUSH ONETIME ONE Stop: 11/09/19 11:33 Last Admin: 11/09/19 11:53 Dose: 0.5 mg Lorazepam (Ativan) Confirm Administered Dose 2 mg .ROUTE .STK-MED ONE Stop: 11/09/19 11:35 Last Admin: 11/09/19 11:56 Dose: Not Given Magnesium Oxide (Magnesium Oxide) 400 mg PO DAILY [facility] Last Admin: 11/02/19 09:19 Dose: Not Given Meropenem (Merrem) Confirm Administered Dose 500 mg .ROUTE .STK-MED ONE Stop: 11/02/19 07:03 Last Admin: 11/02/19 13:27 Dose: 500 mg Metoclopramide HCl (Reglan) 10 mg IVPUSH Q6H PRN PRN Reason: NAUSEA NOT CONTROL BY ZOFRAN Last Admin: 11/02/19 19:00 Dose: 10 mg Midazolam HCl (Versed 1 Mg/Ml) Confirm Administered Dose 2 mg .ROUTE .STK-MED ONE Stop: 10/30/19 07:13 Neostigmine Methylsulfate (Neostigmine) Confirm Administered Dose 5 mg .ROUTE .STK-MED ONE Stop: 11/02/19 08:40 Non-Formulary Medication (Total Parenteral Nutrition, Central) 1,000 ml .XX .Continue Order [facility] Stop: 11/01/19 18:00 Non-Formulary Medication (Tap Block, Pharmacy To Dose) 0 ml NERVRT ONARRIVE [facility] Stop: 11/02/19 08:01 Non-Formulary Medication (Total Parenteral Nutrition, Central) 1,000 ml .XX .Continue Order [facility] Stop: 11/03/19 08:01 Non-Formulary Medication (Total Parenteral Nutrition, Central) 1,000 ml .XX .Continue Order [facility] Stop: 11/06/19 12:00 Non-Formulary Medication (Total Parenteral Nutrition, Central) 1,000 ml .XX .Continue Order [facility] Stop: 11/07/19 21:00 Non-Formulary Medication (Total Parenteral Nutrition, Central) 1,000 ml .XX .Continue Order [facility] Stop: 11/08/19 10:00 Non-Formulary Medication (Total Parenteral Nutrition, Central) 1,000 ml .XX .Continue Order [facility] Stop: 11/12/19 10:00 Ondansetron HCl (Zofran) Confirm Administered Dose 4 mg .ROUTE .STK-MED ONE Stop: 11/02/19 08:40 Oxycodone HCl (Oxycodone) 5 mg PO Q6H PRN PRN Reason: PAIN Pantoprazole Sodium (Protonix) 40 mg PO ACBREAKFAST [facility] Last Admin: 10/30/19 11:34 Dose: 40 mg Pantoprazole Sodium (Protonix) 40 mg PO QPM [facility] Last Admin: 11/01/19 16:11 Dose: 40 mg Pantoprazole Sodium (Protonix Iv) 40 mg IVPUSH Q24H [facility] Last Admin: 11/03/19 18:13 Dose: 40 mg Pantoprazole Sodium (Protonix Iv) 40 mg IVPUSH Q12H [facility] Last Admin: 11/07/19 08:43 Dose: 40 mg Potassium Chloride (Klor-Con M20) 20 meq PO TID [facility] Last Admin: 11/11/19 08:01 Dose: 20 meq Propofol (Diprivan 20 Ml) Confirm Administered Dose 200 mg .ROUTE .STK-MED ONE Stop: 10/30/19 07:13 Propofol (Diprivan 20 Ml) Confirm Administered Dose 200 mg .ROUTE .STK-MED ONE Stop: 11/02/19 08:40 Rocuronium [place] (Zemuron) Confirm Administered Dose 50 mg .ROUTE .STK-MED ONE Stop: 11/02/19 08:40 Senna/Docusate Sodium (Senna Plus) 2 tab PO BID PRN PRN Reason: Constipation Succinylcholine Chloride (Quelicin) Confirm Administered Dose 200 mg .ROUTE .STK -MED ONE Stop: 11/02/19 08:40 - Exam Quality Assessment: Supplemental Oxygen, Central Line/PICC, DVT Prophylaxis General: Alert, Oriented, Cooperative, Mild Distress Lungs: Clear to Auscultation, Normal Respiratory Effort Cardiovascular: Regular Rate, Regular Rhythm, No Murmurs GI/Abdominal Exam: Soft, Non-Tender, No Organomegaly, No Distention Extremities: Non-Tender, No Pedal Edema Sepsis Event Note - Evaluation Sepsis Screening Result: No Definite Risk - Focused Exam Vital Signs: Vital Signs Temp Pulse Resp BP Pulse Ox 11/13/19 08:00 97.8 F 90 17 95/60 90 L 11/13/19 07:01 92 11/13/19 06:00 84 14 113/69 96 11/13/19 04:00 82 9 L 102/69 96 11/13/19 02:00 83 11 L 110/71 95 11/13/19 00:00 96.9 F 85 17 111/70 95 11/12/19 22:48 14 93 L Date Exam was Performed: 11/13/19 Time Exam was Performed: 10:17 Consult PN Assessment/Plan Procedures: Procedures ALANINE AMINO (ALT) (SGPT) (02/27/19) ASSAY ALKALINE PHOSPHATASE (02/27/19) ASSAY GLUCOSE BLOOD QUANT (11/14/18) ASSAY OF CALCIUM (11/14/18) ASSAY OF CREATININE (11/14/18) ASSAY OF MAGNESIUM (02/27/19) ASSAY OF PHOSPHORUS (02/27/19) ASSAY OF PREALBUMIN (02/27/19) ASSAY OF SERUM ALBUMIN (02/27/19) ASSAY OF TRIGLYCERIDES (02/27/19) ASSAY OF UREA NITROGEN (11/14/18) ASSAY THYROID STIM HORMONE (11/14/18) BILIRUBIN TOTAL (02/27/19) BLOOD TYPING SEROLOGIC ABO (09/26/15) BLOOD TYPING SEROLOGIC RH(D) (09/26/15) C DIFF AMPLIFIED PROBE (09/23/18) CARDIOVASCULAR STRESS TEST (07/03/19) CHEST X-RAY 2VW FRONTAL&LATL (11/20/14) COMPLETE CBC AUTOMATED (11/20/14) COMPLETE CBC W/AUTO DIFF WBC (02/27/19) COMPREHEN METABOLIC PANEL (12/19/18) CT THORAX W/DYE (12/19/18) CULTR BACTERIA EXCEPT BLOOD (06/22/19) CULTURE OTHR SPECIMN AEROBIC (06/22/19) DRAIN LOWER LEG LESION (06/22/19) ELECTROLYTE PANEL (11/14/18) EMERGENCY DEPT VISIT (09/22/18) EXTRACRANIAL BILAT STUDY (12/21/18) GLUCOSE BLOOD TEST (11/20/14) HEPATIC FUNCTION PANEL (11/23/18) HT MUSCLE IMAGE SPECT MULT (07/03/19) HYDRATION IV INFUSION INIT (04/15/16) LAP VENT/ABD HERNIA REPAIR (11/20/14) LAPAROSCOPIC CHOLECYSTECTOMY (11/20/14) METABOLIC PANEL TOTAL CA (02/27/19) OVA AND PARASITES SMEARS (09/23/18) POLYSOM ANY AGE 1-3> GISELLA (02/03/16) RBC ANTIBODY SCREEN (09/26/15) ROUTINE VENIPUNCTURE (01/24/19) SMEAR COMPLEX STAIN (09/23/18) SMEAR GRAM STAIN (06/22/19) THER/PROPH/DIAG IV INF ADDON (04/15/16) THER/PROPH/DIAG IV INF INIT (04/15/16) TRANSFERASE (AST) (SGOT) (02/27/19) TTE W/DOPPLER COMPLETE (08/09/18) TX/PRO/DX INJ NEW DRUG ADDON (04/15/16) URINALYSIS AUTO W/SCOPE (09/22/18) US EXAM ABDOM COMPLETE (01/06/19) Problem List Initiated/Reviewed/Updated: Yes Plan: ASSESSMENT AND RECOMMENDATIONS ACUTE HYPOXIC RESPIRATORY FAILURE-so far the picture seems to be most consistent with fluid overload and CHF and a component of ARDS, versus less likely infection. Ongoing slow improvement and good response to diuresis. Tolerating supplemental oxygen with nasal cannula this morning. -Noninvasive positive pressure ventilation (increased pressures to 10/6) -Furosemide 40 mg IV twice daily -IV Pip/Tazo -Discontinue azithromycin -Follow-up cultures HYPOKALEMIA-mild at this time. Probably related to diuresis and has been improving with supplementation. -Increase supplementation to 40 mEq 3 times daily -Recheck in the morning STATUS POST REVISION DUODENAL ILEOSTOMY-stable. -Management per Dr. Nicolas HYPOTHYROIDISM-modest elevation in TSH despite ongoing thyroid replacement therapy with levothyroxine. Recent TSH elevated at 8 and dose of levothyroxine has been increased. 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 Nicolas
--- NOTE | 2019-11-13 10:33 | CR ---
CHEST: Portable 11/12/2019 at 0904 CLINICAL HISTORY:ARDS COMPARISON:11/08/2019 FINDINGS: Right jugular catheter remains in place. Patient has persistent diffuse bilateral pulmonary infiltrates. There may be a slight increase in density in the right upper lobe when compared to prior studies. Some of this difference may be technical. Impression: Diffuse bilateral pulmonary infiltrate superimposed over chronic interstitial disease. ARDS or pneumonia superimposed over chronic interstitial disease have a similar appearance.
--- NOTE | 2019-11-13 11:08 | OR ---
DATE OF PROCEDURE: 11/02/2019 SURGEON: Manfred Nicolas MD PREOPERATIVE DIAGNOSIS: Excessive weight loss, status post duodenal switch. POSTOPERATIVE DIAGNOSES: 1. Excessive weight loss, status post duodenal switch. 2. Extensive intraabdominal adhesions. 3. Focal stricture of mid ileum. OPERATIVE PROCEDURES: 1. Exploratory laparotomy with lysis of adhesions and;. a. Revision of duodenal ileostomy (59356). b. Small bowel resection (00213). c. Placement of Interceed mesh to limit recurrent adhesion formation (82122). ANESTHESIA: General. TRANSMISSION TECHNICIAN: Kelly Parham PA-C INDICATIONS FOR PROCEDURE: This is a 59-year-old presenting with excessive weight loss following previous duodenal switch. Plan is to proceed with revision of the duodenal ileostomy to provide more length to the common channel. Potential risks of the procedure including bleeding, infection, leaks from various GI tract closures that might be required as well as possibility of cardiopulmonary, septic, or hemorrhagic complications leading to were discussed, and the patient wishes to proceed. DETAILS OF PROCEDURE: The patient was taken to the operating room, placed in a supine position. After general endotracheal anesthesia was induced, Gibbons catheter was inserted, and the abdomen prepped and draped. An upper midline incision was made and carried down through the full-thickness abdominal wall. Some scattered adhesions through the omentum, small bowel, and transverse colon and the abdominal wall were taken down with a combination of cautery and blunt dissection. At that point, the patient was noted to have the duodenal ileostomy easily accessible. At this point, we mapped up the limb lengths. At this point, the common limb length was 250 cm and the patient had roughly 400 cm proximal to that up to the ligament of Treitz. At this point, we decided to more or less double the common limb by advancing the duodenal ileostomy roughly 200 cm more proximally to be quite certain that we would be setting the patient up for adequate ability to maintain nutrition. At this point, the duodenal ileostomy was encircled and divided medially at the level of the anastomosis in order to provide some continued length of duodenum from the 2nd anastomosis. The small bowel was then traced out 200 cm proximal to that and then initially the end-to- side duodenal ileostomy anastomosis was accomplished with a running 3-0 Vicryl seromuscular stitch. Enterotomies in both structures were then made and initially the posterior full- thickness layer of 3-0 Vicryl stitch was placed 1st posteriorly, then along the sides anteriorly, and we then finished this up with anterior seromuscular layer of 3-0 Vicryl stitch. Austin sump tube was easily passed through that area and the anastomosis was felt to be satisfactorily open. This was reinforced with some fibrin sealant. Leak test was accomplished with injection of air into the area of anastomosis with distention of the bowel and no leaks were evident. The patient did have a stricture in the mid ileum that was identified and this was divided proximally and distally with ODALIS keith and the [id number] enteroenterostomy was accomplished with internal firing of the Endo-ODALIS 60 mm stapler, common opening closed transversely with same stapler and the angles anastomosed and mesenteric defect approximated with some 3-0 Vicryl stitch. At this point, the abdomen was further irrigated with antibiotic-containing saline solution. Interceed mesh was placed underneath the incision and from there down towards the pelvis to limit recurrent adhesion formation between those surfaces and the underlying viscera. The midline fascia was then approximated with #2 Vicryl stitch. The subcutaneous tissue with 2 layers of 3-0 and 4-0 Vicryl stitch deep and the skin with keith. Prior to closure, bilateral transversus abdominis plane blocks were placed and the incision was also anesthetized with 0.5% Marcaine mixed with lidocaine. The patient was taken to the recovery room in satisfactory condition. There were no evident complications. Physician sales assistants and salespersons, Kelly Parham, played an essential role in assisting in this case, helping to position the patient, retract structures as needed, as well as suturing and cutting sutures as indicated. Her presence improved patient safety and decreased operative time. Manfred Nicolas MD /[id number]
[2019-11-13] MEDS: LYTES IV SCH ×3 (12:15)
[2019-11-13] MEDS: VITAMIN K IV SCH ×3 (12:15)
[2019-11-13] MEDS: CALCIUM IV SCH ×3 (12:15)
[2019-11-13] MEDS: MVI IV SCH ×3 (12:15)
[2019-11-13] MEDS: [UNRECOGNIZED DRUG - OTHER] IV SCH ×3 (12:15)
--- NOTE | 2019-11-13 13:32 | PN ---
DATE OF SERVICE: 11/10/2019 Overnight, the patient diuresed fairly well. He does have 100% pO2 on the BiPAP and good blood gases, but the lungs are somewhat clearer than they had been 24 hours ago. Otherwise, he has not been able to eat much of anything, and I think we will give him low dose TPN at 40 mL an hour, otherwise continuing on present antibiotics and diuretic efforts per Dr. Chou and Dr. Merino. Manfred Nicolas MD /[id number]
--- NOTE | 2019-11-13 13:38 | PN ---
DATE OF SERVICE: 11/13/2019 The patient has been afebrile with stable vital signs. He remains on noninvasive positive- pressure ventilation, but was off up to around 2 hours on secluded nasal cannula. Last night, he was eating supper, so he is generally feeling quite a bit better. Continue to augment the diuresis with assistance of Dr. Chou and Dr. Merino, and we will continue the TPN at 40 mL an hour rate. As he begins to eat more, we will likely be able to get him off that in the next day or 2. Manfred Nicolas MD /[id number]
[2019-11-13] MEDS: Insulin Lispro 100 Unit/ML 3 ML KwikPen SUBCUT PRN (13:43)
[2019-11-14] MEDS: Nystatin Susp 100,000 Unit/ML 5 ML UD Cup PO SCH ×4 (05:30→21:32)
[2019-11-14] MEDS: Piperacillin/Tazobactam/Dext 3.375 GM in Premix Bag 1 BAG IV SCH ×4 (05:31→23:31)
[2019-11-14] MEDS: Furosemide 40 MG/4 ML VIAL IVPUSH SCH (06:09)
[2019-11-14] MEDS: Albuterol/Ipratropium 3.0-0.5 MG/3 ML Neb Soln INH SCH ×4 (07:23→20:13)
[2019-11-14] MEDS: Indacaterol/Glycopyrrolate 1 EA Cap.W.Dev Kit of 6 IH SCH ×2 (07:24→20:18)
[2019-11-14] MEDS: Pantoprazole 40 MG Tab.CR PO SCH ×2 (07:45→16:09)
[2019-11-14] MEDS: Heparin Sodium 5,000 Units/ML Vial SUBCUT SCH ×2 (07:57→19:58)
[2019-11-14] MEDS: Potassium Chloride 20 MEQ Tab.ER PO SCH ×4 (08:01→20:18)
[2019-11-14] MEDS: Aspirin 81 MG Tab.EC PO SCH (08:01)
[2019-11-14] MEDS: atorvaSTATin 20 MG Tab PO SCH (08:01)
[2019-11-14] MEDS: Zinc (Zinc Gluconate) 50 MG Tab PO SCH (08:01)
[2019-11-14] MEDS: HYDROmorphone 2 MG Tab PO PRN ×2 (08:37→19:56)
[2019-11-14] MEDS: Insulin Lispro 100 Unit/ML 3 ML KwikPen SUBCUT PRN (12:10)
[2019-11-14] MEDS: Albuterol/Ipratropium 3.0-0.5 MG/3 ML Neb Soln INH PRN (13:40)
[2019-11-14] MEDS: [UNRECOGNIZED DRUG - OTHER] IV SCH ×3 (15:18)
[2019-11-14] MEDS: LYTES IV SCH ×3 (15:18)
[2019-11-14] MEDS: MVI IV SCH ×3 (15:18)
[2019-11-14] MEDS: CALCIUM IV SCH ×3 (15:18)
[2019-11-14] MEDS: VITAMIN K IV SCH ×3 (15:18)
[2019-11-14] MEDS: Carbamide Peroxide 6.5% Otic Soln 15 ML Bottle EARLF SCH ×2 (15:20→20:18)
--- NOTE | 2019-11-14 17:44 | PCM.CONSN ---
- General Info Date of Service: 11/14/19 Subjective Update: Mr. Griffith has continued to show slow progressive improvement in hypoxia and shortness of breath. This morning has tolerated supplemental oxygen at 2 L/min via nasal cannula. Continues to use noninvasive positive pressure ventilation while sleeping and at rest. Appetite has improved with increase in oral intake. Functional Status: Reports: Tolerating Diet, Urinating. Denies: Ambulating - Review of Systems General: Reports: Weakness. Denies: Fever, Chills Pulmonary: Reports: Shortness of Breath. Denies: Pleuritic Chest Pain, Cough, Sputum, Hemoptysis, Wheezing Cardiovascular: Reports: Dyspnea on Exertion. Denies: Chest Pain, Palpitations , Orthopnea, PND, Edema, Lightheadedness Gastrointestinal: Reports: No Symptoms - Patient Data Vitals - Most Recent: Last Vital Signs Temp 97.2 F 11/14/19 16:00 Pulse 90 11/14/19 14:47 Resp 12 11/14/19 16:00 BP 100/54 L 11/14/19 16:00 Pulse Ox 92 L 11/14/19 16:00 Weight - Most Recent: 100 lb 11.2 oz I&O - Last 24 Hours: Intake & Output 11/14/19 11/14/19 11/14/19 06:59 14:59 22:59 Intake Total 953 Output Total 975 1200 550 Balance -22 1200 -550 Lab Results Last 24 Hours: Laboratory Results - last 24 hr 11/14/19 11/14/19 11/14/19 Range/Units 04:52 04:52 04:52 WBC 9.1 (4.5-11.0) K/uL RBC 3.67 L (4.30-5.90) M/uL Hgb 11.4 L (12.0-15.0) g/dL Hct 36.9 L (40.0-54.0) % MCV 101 H (80-98) fL MCH 31 (27-31) pg MCHC 31 L (32-36) % Plt Count 310 (150-400) K/uL Puncture Site Rt radial ABG pH 7.415 (7.350-7.450) ABG pCO2 51.9 H (35.0-42.0) mmHg ABG pO2 77.8 (75.0-100.0) mmHg ABG HCO3 32.7 H (22.0-26.0) mmol/L ABG Total CO2 29.6 H (23.0-27.0) mmol/L ABG O2 Saturation 93.7 L (95.0-98.0) % ABG O2 Content 15.2 (15.0-23.0) %vol ABG Base Excess 7.2 mm/L ABG Hemoglobin 11.8 L (13.5-18.0) g/dL ABG Oxyhemoglobin 91.1 % ABG Carboxyhemoglobin 1.0 (0.0-1.6) % ABG Methemoglobin 1.8 % Bob Test Passed O2 Delivery Device Bipap Sodium 144 (140-148) mmol/L Potassium 4.4 (3.6-5.2) mmol/L Chloride 105 (100-108) mmol/L Carbon Dioxide 34 H (21-32) mmol/L Anion Gap 9.4 (5.0-14.0) mmol/L BUN 35 H (7-18) mg/dL Creatinine 1.1 (0.8-1.3) mg/dL Est Cr Clr Drug Dosing 55.90 mL/min Estimated GFR (MDRD) > 60 (>60) Glucose 137 H (74-106) mg/dL Calcium 8.1 L (8.5-10.1) mg/dL Phosphorus 3.7 (2.5-4.9) mg/dL Magnesium 1.9 (1.8-2.4) mg/dL Total Bilirubin 1.2 H (0.2-1.0) mg/dL AST 124 H (15-37) U/L ALT 172 H (12-78) U/L Alkaline Phosphatase 154 H (46-116) U/L NT-Pro-B Natriuret Pep 542 H (5-125) pg/mL Total Protein 5.1 L (6.4-8.2) g/dL Albumin 2.0 L (3.4-5.0) g/dL Globulin 3.1 (2.3-3.5) g/dL Albumin/Globulin Ratio 0.7 L (1.2-2.2) [facility] Results Last 24 Hours: Microbiology 11/09/19 12:15 Aerobic Blood Culture - Final Blood - Central Line NO GROWTH AFTER 5 DAYS Anaerobic Blood Culture - Final NO GROWTH AFTER 5 DAYS 11/09/19 12:20 Aerobic Blood Culture - Final Blood - Arterial Line - Direct Stick NO GROWTH AFTER 5 DAYS Anaerobic Blood Culture - Final NO GROWTH AFTER 5 DAYS Med Orders - Current: Current Medications Acetaminophen (Tylenol Extra Strength) 500 mg PO Q8H PRN PRN Reason: MILD PAIN Last Admin: 11/07/19 20:59 Dose: 500 mg Albuterol/Ipratropium (Duoneb 3.0-0.5 Mg/3 Ml) 3 ml INH QIDRT [facility] Last Admin: 11/14/19 14:47 Dose: 3 ml Albuterol/Ipratropium (Duoneb 3.0-0.5 Mg/3 Ml) 3 ml INH ASDIRECTED PRN PRN Reason: BREATHING Last Admin: 11/14/19 13:40 Dose: 3 ml Aspirin (Halfprin) 81 mg PO DAILY [facility] Last Admin: 11/14/19 08:01 Dose: 81 mg Atorvastatin Calcium (Lipitor) 20 mg PO DAILY [facility] Last Admin: 11/14/19 08:01 Dose: 20 mg Calcium Carbonate/Glycine (Tums) 1,000 mg PO Q2H PRN PRN Reason: Indigestion Last Admin: 11/08/19 09:29 Dose: 1,000 mg Carbamide Perox/Anhydrous Glycerin (Debrox 6.5% Otic Soln) 0 ml EARLF BID [facility] Last Admin: 11/14/19 15:20 Dose: 2 drop Cyclobenzaprine HCl (Flexeril) 10 mg PO Q8H PRN PRN Reason: Muscle Spasm Last Admin: 11/03/19 07:42 Dose: 10 mg Dextrose/Water (Dextrose 50% In Water) 50 ml IVPUSH ONETIME PRN PRN Reason: ACCUCHECK LESS THAN 70 Diphenhydramine HCl (Benadryl) 50 mg IVPUSH Q4H PRN PRN Reason: ITCHING Furosemide (Lasix) 40 mg IVPUSH Q12H [facility] Last Admin: 11/14/19 17:36 Dose: 40 mg Glucagon (Glucagen) 1 mg IM ONETIME PRN PRN Reason: ACCUCHECK LESS THAN 70 Glycopyrrolate/Indacaterol (Utibron Neohaler 27.5-15.6 Mcg) 0 each IH BIDRT [facility] Last Admin: 11/14/19 07:24 Dose: 1 puff Heparin Sodium (Porcine) (Heparin Sodium) 5,000 units SUBCUT Q12H [facility] Last Admin: 11/14/19 07:57 Dose: 5,000 units Heparin Sodium (Porcine) (Heparin Lock Flush 100 Units/Ml) 500 units FLUSH ASDIRECTED PRN PRN Reason: line maint Hydromorphone HCl (Dilaudid) 2 - 4 mg PO Q4H PRN PRN Reason: Pain Last Admin: 11/14/19 08:37 Dose: 4 mg Hydroxyzine HCl (Vistaril) 100 mg IM Q4H PRN PRN Reason: pain Last Admin: 11/05/19 21:08 Dose: 100 mg Piperacillin/Tazobactam/ (Dextrose 3.375 gm/ Premix) 50 mls @ 100 mls/hr IV Q6H [facility] Last Admin: 11/14/19 12:00 Dose: 100 mls/hr Multivitamins/Minerals 10 ml/Chromium/Copper/Manganese/Seleni/Zn 1 ml/ Amino Ac/ Electrol/Dextrose/Calcium 1,011 mls @ 40 mls/hr IV .Q24H [facility] Last Admin: 11/14/19 15:18 Dose: 40 mls/hr Insulin Human Lispro (Humalog) 0 unit SUBCUT Q6H PRN; Protocol PRN Reason: CORRECTIONAL DOSING Last Admin: 11/14/19 12:10 Dose: 5 units Levothyroxine Sodium 300 mcg/ (Levothyroxine Sodium 25 mcg) 325 mcg PO DAILY@ 0600 [facility] Last Admin: 11/14/19 05:30 Dose: 325 mcg Lorazepam (Ativan) 0.5 mg IVPUSH Q2H PRN PRN Reason: Anxiety Last Admin: 11/11/19 10:33 Dose: 0.5 mg Nitroglycerin (Nitrostat) 0.4 mg SL ASDIRECTED PRN PRN Reason: Chest Pain Nystatin (Mycostatin) 5 ml PO QID [facility] Last Admin: 11/14/19 15:20 Dose: Not Given Ondansetron HCl (Zofran) 4 mg IVPUSH Q4H PRN PRN Reason: Nausea/Vomiting Last Admin: 11/03/19 02:52 Dose: 4 mg Ondansetron HCl (Zofran Odt) 4 mg PO Q4H PRN PRN Reason: Nausea/Vomiting Pantoprazole Sodium (Protonix) 40 mg PO BIDAC [facility] Last Admin: 11/14/19 16:09 Dose: 40 mg Potassium Chloride (Klor-Con M20) 40 meq PO TID [facility] Last Admin: 11/14/19 15:00 Dose: 40 meq Testosterone Cypionate (Depo-Testosterone) 300 mg IM Q14D [facility] Last Admin: 11/01/19 11:00 Dose: 300 mg Zinc Gluconate (Zinc) 50 mg PO DAILY [facility] Last Admin: 11/14/19 08:01 Dose: 50 mg Discontinued Medications Acetaminophen (Tylenol Extra Strength) 1,000 mg PO Q8H [facility] Last Admin: 11/05/19 17:50 Dose: Not Given Albuterol (Ventolin Hfa) 0 gm INH Q4H PRN PRN Reason: * Albuterol/Ipratropium (Duoneb 3.0-0.5 Mg/3 Ml) 3 ml NEB ONETIME ONE Stop: 10/30/19 07:01 Last Admin: 10/30/19 07:28 Dose: 3 ml Bupivacaine HCl (Marcaine 0.5%) Confirm Administered Dose 50 ml .ROUTE .STK-MED ONE Stop: 10/30/19 06:34 Last Admin: 10/30/19 08:47 Dose: 5 ml Bupivacaine HCl (Marcaine 0.5%) Confirm Administered Dose 50 ml .ROUTE .STK-MED ONE Stop: 11/02/19 07:03 Calcium Carbonate (Caltrate 600+D 1500 Mg-400 Units) 1 tab PO BID [facility] Last Admin: 11/02/19 09:18 Dose: Not Given Ropivacaine 30 ml/Dexamethasone 8 mg/Epinephrine HCl 0.4 mg/ Sodium Chloride 47.6 ml 0 ml NERVRT ASDIRECTED [facility] Last Admin: 11/02/19 13:39 Dose: 80 syringe Cyanocobalamin (Vitamin B12) 1,000 mcg IM ONETIME ONE Stop: 11/04/19 09:01 Last Admin: 11/04/19 08:26 Dose: 1,000 mcg Dexamethasone (Dexamethasone) Confirm Administered Dose 4 mg .ROUTE .STK-MED ONE Stop: 11/02/19 08:40 Diphenoxylate HCl/Atropine (Lomotil 0.025-2.5 Mg) 1 tab PO QID [facility] Last Admin: 11/02/19 09:19 Dose: Not Given Docusate Sodium (Colace) 100 mg PO BID [facility] Last Admin: 11/06/19 20:01 Dose: Not Given Fentanyl (Sublimaze) Confirm Administered Dose 100 mcg .ROUTE .STK-MED ONE Stop: 10/30/19 07:13 Fentanyl (Sublimaze) Confirm Administered Dose 250 mcg .ROUTE .STK-MED ONE Stop: 11/02/19 08:40 Furosemide (Lasix) 10 mg IV ONETIME ONE Stop: 11/04/19 09:01 Last Admin: 11/04/19 08:51 Dose: 10 mg Furosemide (Lasix) 20 mg IV ONETIME ONE Stop: 11/04/19 12:31 Last Admin: 11/04/19 12:15 Dose: 20 mg Furosemide (Lasix) 20 mg IVPUSH ONETIME ONE Stop: 11/04/19 15:39 Last Admin: 11/04/19 15:49 Dose: 20 mg Furosemide (Lasix) 20 mg IV ONETIME ONE Stop: 11/05/19 12:01 Last Admin: 11/05/19 13:08 Dose: 20 mg Furosemide (Lasix) 40 mg IVPUSH ONETIME ONE Stop: 11/08/19 06:52 Last Admin: 11/08/19 07:18 Dose: 40 mg Furosemide (Lasix) 40 mg IVPUSH ONETIME ONE Stop: 11/08/19 23:27 Last Admin: 11/08/19 23:57 Dose: 40 mg Furosemide (Lasix) 40 mg IVPUSH ONETIME ONE Stop: 11/09/19 07:31 Last Admin: 11/09/19 08:35 Dose: 40 mg Furosemide (Lasix) 40 mg IVPUSH NOW ONE Stop: 11/09/19 19:01 Last Admin: 11/09/19 19:30 Dose: 40 mg Furosemide (Lasix) 40 mg IVPUSH Q12H [facility] Last Admin: 11/14/19 06:09 Dose: 40 mg Gabapentin (Neurontin) 300 mg PO TID [facility] Last Admin: 11/05/19 14:28 Dose: Not Given Glycopyrrolate (Robinul) Confirm Administered Dose 1 mg .ROUTE .STK-MED ONE Stop: 11/02/19 08:40 Heparin Sodium (Porcine) (Heparin Lock Flush 100 Units/Ml) Confirm Administered Dose 1,500 units .ROUTE .STK-MED ONE Stop: 10/30/19 06:34 Heparin Sodium (Porcine) (Heparin Lock Flush 100 Units/Ml) 500 units FLUSH ASDIRECTED PRN PRN Reason: IV Use Last Admin: 11/09/19 04:43 Dose: 500 units Hydromorphone HCl (Dilaudid) 0.5 mg IVPUSH Q2H PRN PRN Reason: MODERATE PAIN Last Admin: 11/06/19 21:38 Dose: 0.5 mg Hydromorphone HCl (Dilaudid) 1 mg IV Q2H PRN PRN Reason: SEVERE PAIN Last Admin: 11/02/19 21:13 Dose: 1 mg Dextrose/Lactated Ringer's (Dextrose 5%-Lactated Ringers) 1,000 mls @ 100 mls/ hr IV ASDIRECTED [facility] Last Admin: 10/30/19 07:28 Dose: 100 mls/hr Cefazolin Sodium/Dextrose 2 gm (/ Premix) 50 mls @ 100 mls/hr IV ONETIME ONE Stop: 10/30/19 08:59 Last Admin: 10/30/19 08:14 Dose: 100 mls/hr Dextrose/Lactated Ringer's (Dextrose 5%-Lactated Ringers) 1,000 mls @ 0 mls/hr IV ASDIRECTED [facility] Last Admin: 11/01/19 20:16 Dose: 25 mls/hr Multivitamins/Minerals 10 ml/Chromium/Copper/Manganese/Seleni/Zn 1 ml/ Amino Ac/ Electrol/Dextrose/Calcium 1,011 mls @ 100 mls/hr IV .BY DURATION [facility] Stop: 10/31/19 17:00 Last Admin: 10/31/19 07:34 Dose: 100 mls/hr Amino Ac/Electrol/Dextrose/Calcium (Clinimix E 5/15) 1,000 mls @ 100 mls/hr IV .BY DURATION [facility] Stop: 10/31/19 17:00 Last Admin: 10/30/19 22:53 Dose: 100 mls/hr Fat Emulsion Intravenous (Intralipid 20%) 250 mls @ 21 mls/hr IV ONETIME ONE Stop: 10/31/19 03:54 Last Admin: 10/30/19 15:32 Dose: 21 mls/hr Albumin Human (Albumin 25%) 25 gm in 100 mls @ 25 mls/hr IV Q24H [facility] Stop: 11/02/19 14:59 Last Admin: 10/30/19 11:51 Dose: 25 mls/hr Albumin Human (Albumin 25%) 25 gm in 100 mls @ 25 mls/hr IV Q24H [facility] Stop: 11/02/19 18:59 Last Admin: 10/30/19 15:31 Dose: 25 mls/hr Magnesium Sulfate 2 gm/ Premix 50 mls @ 25 mls/hr IV Q6H [facility] Stop: 11/03/19 03:59 Last Admin: 11/02/19 09:15 Dose: 25 mls/hr Potassium Phosphate 20 mmole/ (Sodium Chloride) 106.6667 mls @ 35 mls/hr IV Q3H [facility] Stop: 10/31/19 18:59 Last Admin: 10/31/19 16:31 Dose: 35 mls/hr Albumin Human (Albumin 25%) 25 gm in 100 mls @ 25 mls/hr IV Q24H [facility] Stop: 11/02/19 23:59 Last Admin: 11/02/19 20:58 Dose: 25 mls/hr Albumin Human (Albumin 25%) 25 gm in 100 mls @ 25 mls/hr IV Q24H [facility] Stop: 11/03/19 03:59 Last Admin: 11/03/19 00:00 Dose: 25 mls/hr Fat Emulsion Intravenous (Intralipid 20%) 250 mls @ 21 mls/hr IV Q24H [facility] Last Admin: 10/31/19 17:52 Dose: 21 mls/hr Multivitamins/Minerals 10 ml/Chromium/Copper/Manganese/Seleni/Zn 1 ml/ Amino Ac/ Electrol/Dextrose/Calcium 1,011 mls @ 100 mls/hr IV .BY DURATION [facility] Last Admin: 11/02/19 01:37 Dose: 100 mls/hr Amino Ac/Electrol/Dextrose/Calcium (Clinimix E 01/11) 1,000 mls @ 100 mls/hr IV .BY DURATION [facility] Last Admin: 11/02/19 11:57 Dose: 100 mls/hr Cefoxitin Sodium 2 gm/ Sodium (Chloride) 50 mls @ 100 mls/hr IV ONETIME ONE Stop: 11/02/19 08:29 Last Admin: 11/02/19 12:27 Dose: 100 mls/hr Ketamine HCl 50 mg/ Sodium (Chloride) 50 mls @ 18 mls/hr IV ASDIRECTED [facility] Magnesium Sulfate 1.5 gm/ (Sodium Chloride) 103 mls @ 206 mls/hr IV ASDIRECTED [facility] Magnesium Sulfate 2.4 gm/ (Sodium Chloride) 254.8 mls @ 31.85 mls/hr IV ONETIME ONE Stop: 11/02/19 16:59 Lactated Ringer's (Ringers, Lactated) Confirm Administered Dose 1,000 mls @ as directed .ROUTE .[facility] ONE Stop: 11/02/19 11:07 Sodium Chloride (Normal Saline) Confirm Administered Dose 250 mls @ as directed .ROUTE .[facility] ONE Stop: 11/02/19 14:37 Dextrose/Lactated Ringer's (Dextrose 5%-Lactated Ringers) 1,000 mls @ 50 mls/ hr IV ASDIRECTED [facility] Last Admin: 11/03/19 02:38 Dose: 50 mls/hr Magnesium Sulfate 2 gm/ Premix 50 mls @ 25 mls/hr IV Q6H [facility] Stop: 11/03/19 07:59 Last Admin: 11/03/19 05:32 Dose: 25 mls/hr Cefoxitin Sodium 2 gm/ Sodium (Chloride) 50 mls @ 100 mls/hr IV Q6H [facility] Stop: 11/03/19 06:29 Last Admin: 11/03/19 05:36 Dose: 100 mls/hr Multivitamins/Minerals 10 ml/Chromium/Copper/Manganese/Seleni/Zn 1 ml/ Amino Ac/ Electrol/Dextrose/Calcium 1,011 mls @ 100 mls/hr IV .BY DURATION [facility] Stop: 11/03/19 18:30 Last Admin: 11/03/19 04:13 Dose: Not Given Amino Ac/Electrol/Dextrose/Calcium (Clinimix E 5/15) 1,000 mls @ 100 mls/hr IV .BY DURATION [facility] Stop: 11/03/19 18:30 Last Admin: 11/03/19 12:38 Dose: Not Given Dextrose/Lactated Ringer's (Dextrose 5%-Lactated Ringers) 1,000 mls @ 0 mls/hr IV ASDIRECTED [facility] Last Admin: 11/03/19 13:12 Dose: 25 mls/hr Multivitamins/Minerals 10 ml/Chromium/Copper/Manganese/Seleni/Zn 1 ml/ Amino Ac/ Electrol/Dextrose/Calcium 1,011 mls @ 100 mls/hr IV .BY DURATION [facility] Stop: 11/06/19 17:00 Last Admin: 11/06/19 09:20 Dose: 100 mls/hr Amino Ac/Electrol/Dextrose/Calcium (Clinimix E 5/15) 1,000 mls @ 100 mls/hr IV .BY DURATION [facility] Stop: 11/06/19 17:00 Last Admin: 11/05/19 23:17 Dose: 100 mls/hr Multivitamins/Minerals 10 ml/Chromium/Copper/Manganese/Seleni/Zn 1 ml/ Amino Ac/ Electrol/Dextrose/Calcium 1,011 mls @ 80 mls/hr IV .BY DURATION [facility] Stop: 11/07/19 09:45 Amino Ac/Electrol/Dextrose/Calcium (Clinimix E 5/15) 1,000 mls @ 80 mls/hr IV .BY DURATION [facility] Stop: 11/07/19 09:45 Last Admin: 11/06/19 21:42 Dose: 80 mls/hr Magnesium Sulfate 2 gm/ Premix 50 mls @ 25 mls/hr IV Q6H [facility] Stop: 11/10/19 05:59 Last Admin: 11/09/19 12:05 Dose: Not Given Multivitamins/Minerals 10 ml/Chromium/Copper/Manganese/Seleni/Zn 1 ml/ Amino Ac/ Electrol/Dextrose/Calcium 1,011 mls @ 40 mls/hr IV .BY DURATION [facility] Stop: 11/08/19 09:55 Last Admin: 11/07/19 10:47 Dose: 40 mls/hr Amino Ac/Electrol/Dextrose/Calcium (Clinimix E 5/15) 1,000 mls @ 40 mls/hr IV .BY DURATION [facility] Stop: 11/08/19 09:55 Albumin Human (Albumin 25%) 25 gm in 100 mls @ 25 mls/hr IV Q4H [facility] Stop: 11/08/19 16:29 Last Admin: 11/08/19 12:28 Dose: 25 mls/hr Albumin Human (Albumin 25%) 25 gm in 100 mls @ 25 mls/hr IV Q2H [facility] Stop: 11/09/19 09:59 Last Admin: 11/09/19 09:51 Dose: Not Given Piperacillin Sod/Tazobactam (Sod 3.375 gm/ Sodium Chloride) 50 mls @ 100 mls/ hr IV Q6H [facility] Last Admin: 11/09/19 05:49 Dose: 100 mls/hr Sodium Chloride (Normal Saline) 100 mls @ 4 mls/sec IV ASDIRECTED [facility] Stop: 11/09/19 11:00 Last Admin: 11/09/19 10:18 Dose: 4 mls/sec Azithromycin 500 mg/ Sodium (Chloride) 250 mls @ 250 mls/hr IV Q24H [facility] Last Admin: 11/12/19 13:09 Dose: 250 mls/hr Linezolid 600 mg/ Premix 300 mls @ 300 mls/hr IV Q12H [facility] Last Admin: 11/10/19 23:43 Dose: 300 mls/hr Iopamidol (Isovue-300 (61%)) 50 ml PO ASDIRECTED [facility] Stop: 11/03/19 04:21 Last Admin: 11/03/19 04:35 Dose: 50 ml Iopamidol (Isovue-300 (61%)) 50 ml PO ASDIRECTED [facility] Stop: 11/06/19 04:01 Last Admin: 11/06/19 04:33 Dose: 50 ml Iopamidol (Isovue-370 (76%)) 100 ml IV . DIRECTED ONE Stop: 11/09/19 09:10 Last Admin: 11/09/19 10:19 Dose: 100 ml Ketamine HCl (Ketalar) 0 mg IV BOLUS [facility] Ketamine HCl (Ketalar) 0 mg IV ASDIRECTED [facility] Ketamine HCl (Ketalar) 30 mg IV ASDIRECTED [facility] Labetalol HCl (Normodyne) 5 mg IVPUSH Q5M PRN PRN Reason: SBP over 160 OR DBP over 95 Lidocaine/Epinephrine (Xylocaine 1% With Epinephrine 1:100,000) Confirm Administered Dose 50 ml .ROUTE .STK-MED ONE Stop: 10/30/19 06:34 Last Admin: 10/30/19 08:47 Dose: 5 ml Lidocaine/Epinephrine (Xylocaine 1% With Epinephrine 1:100,000) Confirm Administered Dose 50 ml .ROUTE .STK-MED ONE Stop: 11/02/19 07:04 Loperamide HCl (Imodium) 4 mg PO QID [facility] Last Admin: 11/02/19 09:19 Dose: Not Given Lorazepam (Ativan) 0.5 mg IVPUSH ONETIME ONE Stop: 11/09/19 11:33 Last Admin: 11/09/19 11:53 Dose: 0.5 mg Lorazepam (Ativan) Confirm Administered Dose 2 mg .ROUTE .STK-MED ONE Stop: 11/09/19 11:35 Last Admin: 11/09/19 11:56 Dose: Not Given Magnesium Oxide (Magnesium Oxide) 400 mg PO DAILY [facility] Last Admin: 11/02/19 09:19 Dose: Not Given Meropenem (Merrem) Confirm Administered Dose 500 mg .ROUTE .STK-MED ONE Stop: 11/02/19 07:03 Last Admin: 11/02/19 13:27 Dose: 500 mg Metoclopramide HCl (Reglan) 10 mg IVPUSH Q6H PRN PRN Reason: NAUSEA NOT CONTROL BY ZOFRAN Last Admin: 11/02/19 19:00 Dose: 10 mg Midazolam HCl (Versed 1 Mg/Ml) Confirm Administered Dose 2 mg .ROUTE .STK-MED ONE Stop: 10/30/19 07:13 Neostigmine Methylsulfate (Neostigmine) Confirm Administered Dose 5 mg .ROUTE .STK-MED ONE Stop: 11/02/19 08:40 Non-Formulary Medication (Total Parenteral Nutrition, Central) 1,000 ml .XX .Continue Order [facility] Stop: 11/01/19 18:00 Non-Formulary Medication (Tap Block, Pharmacy To Dose) 0 ml NERVRT ONARRIVE [facility] Stop: 11/02/19 08:01 Non-Formulary Medication (Total Parenteral Nutrition, Central) 1,000 ml .XX .Continue Order [facility] Stop: 11/03/19 08:01 Non-Formulary Medication (Total Parenteral Nutrition, Central) 1,000 ml .XX .Continue Order [facility] Stop: 11/06/19 12:00 Non-Formulary Medication (Total Parenteral Nutrition, Central) 1,000 ml .XX .Continue Order [facility] Stop: 11/07/19 21:00 Non-Formulary Medication (Total Parenteral Nutrition, Central) 1,000 ml .XX .Continue Order [facility] Stop: 11/08/19 10:00 Non-Formulary Medication (Total Parenteral Nutrition, Central) 1,000 ml .XX .Continue Order [facility] Stop: 11/12/19 10:00 Ondansetron HCl (Zofran) Confirm Administered Dose 4 mg .ROUTE .STK-MED ONE Stop: 11/02/19 08:40 Oxycodone HCl (Oxycodone) 5 mg PO Q6H PRN PRN Reason: PAIN Pantoprazole Sodium (Protonix) 40 mg PO ACBREAKFAST [facility] Last Admin: 10/30/19 11:34 Dose: 40 mg Pantoprazole Sodium (Protonix) 40 mg PO QPM [facility] Last Admin: 11/01/19 16:11 Dose: 40 mg Pantoprazole Sodium (Protonix Iv) 40 mg IVPUSH Q24H [facility] Last Admin: 11/03/19 18:13 Dose: 40 mg Pantoprazole Sodium (Protonix Iv) 40 mg IVPUSH Q12H [facility] Last Admin: 11/07/19 08:43 Dose: 40 mg Potassium Chloride (Klor-Con M20) 20 meq PO TID [facility] Last Admin: 11/11/19 08:01 Dose: 20 meq Propofol (Diprivan 20 Ml) Confirm Administered Dose 200 mg .ROUTE .STK-MED ONE Stop: 10/30/19 07:13 Propofol (Diprivan 20 Ml) Confirm Administered Dose 200 mg .ROUTE .STK-MED ONE Stop: 11/02/19 08:40 Rocuronium Souris (Zemuron) Confirm Administered Dose 50 mg .ROUTE .STK-MED ONE Stop: 11/02/19 08:40 Senna/Docusate Sodium (Senna Plus) 2 tab PO BID PRN PRN Reason: Constipation Succinylcholine Chloride (Quelicin) Confirm Administered Dose 200 mg .ROUTE .STK -MED ONE Stop: 11/02/19 08:40 - Exam Quality Assessment: Supplemental Oxygen, Central Line/PICC, DVT Prophylaxis General: Alert, Oriented, Cooperative, Mild Distress Lungs: Clear to Auscultation, Normal Respiratory Effort, Decreased Breath Sounds Cardiovascular: Regular Rate, Regular Rhythm, No Murmurs GI/Abdominal Exam: Soft, Non-Tender, No Organomegaly, No Distention Extremities: Non-Tender, No Pedal Edema Sepsis Event Note - Evaluation Sepsis Screening Result: No Definite Risk - Focused Exam Vital Signs: Vital Signs Temp Pulse Resp BP Pulse Ox 11/14/19 16:00 97.2 F 12 100/54 L 92 L 11/14/19 14:47 90 11/14/19 14:00 14 95/58 L 98 11/14/19 11:56 97 F 12 101/63 92 L 11/14/19 10:42 89 11/14/19 10:00 12 107/72 94 L 11/14/19 07:54 96 F L 20 108/70 93 L 11/14/19 07:24 84 11/14/19 06:00 80 15 125/69 96 Date Exam was Performed: 11/14/19 Time Exam was Performed: 17:41 Consult PN Assessment/Plan Procedures: Procedures ALANINE AMINO (ALT) (SGPT) (02/27/19) ASSAY ALKALINE PHOSPHATASE (02/27/19) ASSAY GLUCOSE BLOOD QUANT (11/14/18) ASSAY OF CALCIUM (11/14/18) ASSAY OF CREATININE (11/14/18) ASSAY OF MAGNESIUM (02/27/19) ASSAY OF PHOSPHORUS (02/27/19) ASSAY OF PREALBUMIN (02/27/19) ASSAY OF SERUM ALBUMIN (02/27/19) ASSAY OF TRIGLYCERIDES (02/27/19) ASSAY OF UREA NITROGEN (11/14/18) ASSAY THYROID STIM HORMONE (11/14/18) BILIRUBIN TOTAL (02/27/19) BLOOD TYPING SEROLOGIC ABO (09/26/15) BLOOD TYPING SEROLOGIC RH(D) (09/26/15) C DIFF AMPLIFIED PROBE (09/23/18) CARDIOVASCULAR STRESS TEST (07/03/19) CHEST X-RAY 2VW FRONTAL&LATL (11/20/14) COMPLETE CBC AUTOMATED (11/20/14) COMPLETE CBC W/AUTO DIFF WBC (02/27/19) COMPREHEN METABOLIC PANEL (12/19/18) CT THORAX W/DYE (12/19/18) CULTR BACTERIA EXCEPT BLOOD (06/22/19) CULTURE OTHR SPECIMN AEROBIC (06/22/19) DRAIN LOWER LEG LESION (06/22/19) ELECTROLYTE PANEL (11/14/18) EMERGENCY DEPT VISIT (09/22/18) EXTRACRANIAL BILAT STUDY (12/21/18) GLUCOSE BLOOD TEST (11/20/14) HEPATIC FUNCTION PANEL (11/23/18) HT MUSCLE IMAGE SPECT MULT (07/03/19) HYDRATION IV INFUSION INIT (04/15/16) LAP VENT/ABD HERNIA REPAIR (11/20/14) LAPAROSCOPIC CHOLECYSTECTOMY (11/20/14) METABOLIC PANEL TOTAL CA (02/27/19) OVA AND PARASITES SMEARS (09/23/18) POLYSOM ANY AGE 1-3> GISELLA (02/03/16) RBC ANTIBODY SCREEN (09/26/15) ROUTINE VENIPUNCTURE (01/24/19) SMEAR COMPLEX STAIN (09/23/18) SMEAR GRAM STAIN (06/22/19) THER/PROPH/DIAG IV INF ADDON (04/15/16) THER/PROPH/DIAG IV INF INIT (04/15/16) TRANSFERASE (AST) (SGOT) (02/27/19) TTE W/DOPPLER COMPLETE (08/09/18) TX/PRO/DX INJ NEW DRUG ADDON (04/15/16) URINALYSIS AUTO W/SCOPE (09/22/18) US EXAM ABDOM COMPLETE (01/06/19) Problem List Initiated/Reviewed/Updated: Yes My Orders Last 24 Hours: My Active Orders 11/14/19 14:30 Carbamide Peroxide [Debrox 6.5% Otic Soln] See Dose Instructions EARLF BID Plan: ASSESSMENT AND RECOMMENDATIONS ACUTE HYPOXIC RESPIRATORY FAILURE-so far the picture seems to be most consistent with fluid overload and CHF and a component of ARDS, versus less likely infection. Ongoing slow improvement and good response to diuresis. Tolerating supplemental oxygen with nasal cannula this morning. -Noninvasive positive pressure ventilation -Furosemide 40 mg IV twice daily -IV Pip/Tazo -Discontinue azithromycin -Follow-up cultures HYPOKALEMIA-resolved STATUS POST REVISION DUODENAL ILEOSTOMY-stable. -Management per Dr. Nicolas HYPOTHYROIDISM-modest elevation in TSH despite ongoing thyroid replacement therapy with levothyroxine. Recent TSH elevated at 8 and dose of levothyroxine has been increased. 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 Nicolas
[2019-11-14] MEDS ORDERED: Furosemide 40 MG/4 ML VIAL IVPUSH SCH (18:00)
[2019-11-15] MEDS: HYDROmorphone 2 MG Tab PO PRN ×2 (00:01→16:53)
[2019-11-15] MEDS: Piperacillin/Tazobactam/Dext 3.375 GM in Premix Bag 1 BAG IV SCH (05:47)
[2019-11-15] MEDS: Nystatin Susp 100,000 Unit/ML 5 ML UD Cup PO SCH ×4 (05:52→21:11)
[2019-11-15] MEDS: Pantoprazole 40 MG Tab.CR PO SCH ×2 (07:43→15:40)
[2019-11-15] MEDS: Albuterol/Ipratropium 3.0-0.5 MG/3 ML Neb Soln INH SCH ×4 (07:49→21:09)
[2019-11-15] MEDS: Indacaterol/Glycopyrrolate 1 EA Cap.W.Dev Kit of 6 IH SCH ×2 (07:50→21:13)
[2019-11-15] MEDS: Potassium Chloride 20 MEQ Tab.ER PO SCH ×3 (08:20→21:12)
[2019-11-15] MEDS: Zinc (Zinc Gluconate) 50 MG Tab PO SCH (08:20)
[2019-11-15] MEDS: Aspirin 81 MG Tab.EC PO SCH (08:20)
[2019-11-15] MEDS: Carbamide Peroxide 6.5% Otic Soln 15 ML Bottle EARLF SCH ×2 (08:20→21:13)
[2019-11-15] MEDS: atorvaSTATin 20 MG Tab PO SCH (08:20)
[2019-11-15] MEDS ORDERED: Furosemide 40 MG/4 ML VIAL IVPUSH SCH (09:00)
--- NOTE | 2019-11-15 09:45 | PCM.CONSN ---
- General Info Date of Service: 11/15/19 Subjective Update: Mr. Griffith is improved over the last 24 hours, has required only minimal use of noninvasive positive pressure ventilation. Vital signs have been stable and he has been afebrile. Oxygenation is improved and he has been able to be more active. Good oral intake over the past 24 hours. - Review of Systems General: Reports: Weakness. Denies: Fever, Chills Pulmonary: Reports: Shortness of Breath. Denies: Pleuritic Chest Pain, Cough, Sputum, Hemoptysis, Wheezing Cardiovascular: Reports: Dyspnea on Exertion. Denies: Chest Pain, Palpitations , Orthopnea, PND, Edema, Lightheadedness Gastrointestinal: Reports: No Symptoms - Patient Data Vitals - Most Recent: Last Vital Signs Temp 96 F L 11/15/19 08:00 Pulse 76 11/15/19 07:51 Resp 12 11/15/19 08:00 BP 123/77 11/15/19 08:00 Pulse Ox 98 11/15/19 08:00 Weight - Most Recent: 100 lb 11.2 oz I&O - Last 24 Hours: Intake & Output 11/14/19 11/15/19 11/15/19 22:59 06:59 14:59 Intake Total 583 1433 400 Output Total 1325 300 600 Balance -742 1133 -200 Lab Results Last 24 Hours: Laboratory Results - last 24 hr 11/15/19 11/15/19 11/15/19 Range/Units 04:00 04:15 04:15 WBC 9.1 (4.5-11.0) K/uL RBC 3.65 L (4.30-5.90) M/uL Hgb 11.4 L (12.0-15.0) g/dL Hct 36.4 L (40.0-54.0) % MCV 100 H (80-98) fL MCH 31 (27-31) pg MCHC 31 L (32-36) % Plt Count 340 (150-400) K/uL Puncture Site Rt brachial ABG pH 7.440 (7.350-7.450) ABG pCO2 46.0 H (35.0-42.0) mmHg ABG pO2 61.8 L (75.0-100.0) mmHg ABG HCO3 30.7 H (22.0-26.0) mmol/L ABG Total CO2 27.5 H (23.0-27.0) mmol/L ABG O2 Saturation 89.2 L (95.0-98.0) % ABG O2 Content 15.1 (15.0-23.0) %vol ABG Base Excess 6.1 mm/L ABG Hemoglobin 12.4 L (13.5-18.0) g/dL ABG Oxyhemoglobin 86.6 % ABG Carboxyhemoglobin 1.2 (0.0-1.6) % ABG Methemoglobin 1.7 % Bob Test Not performed O2 Delivery Device Bipap Oxygen Flow Rate 3.5 L Sodium 141 (140-148) mmol/L Potassium 4.2 (3.6-5.2) mmol/L Chloride 104 (100-108) mmol/L Carbon Dioxide 34 H (21-32) mmol/L Anion Gap 7.2 (5.0-14.0) mmol/L BUN 39 H (7-18) mg/dL Creatinine 1.1 (0.8-1.3) mg/dL Est Cr Clr Drug Dosing 46.71 mL/min Estimated GFR (MDRD) > 60 (>60) Glucose 138 H (74-106) mg/dL Calcium 7.9 L (8.5-10.1) mg/dL Phosphorus 3.5 (2.5-4.9) mg/dL Magnesium 1.9 (1.8-2.4) mg/dL Total Bilirubin 1.2 H (0.2-1.0) mg/dL AST 100 H (15-37) U/L ALT 172 H (12-78) U/L Alkaline Phosphatase 144 H (46-116) U/L NT-Pro-B Natriuret Pep 336 H (5-125) pg/mL Total Protein 5.2 L (6.4-8.2) g/dL Albumin 2.0 L (3.4-5.0) g/dL Globulin 3.2 (2.3-3.5) g/dL Albumin/Globulin Ratio 0.6 L (1.2-2.2) [facility] Results Last 24 Hours: Microbiology 11/09/19 12:15 Aerobic Blood Culture - Final Blood - Central Line NO GROWTH AFTER 5 DAYS Anaerobic Blood Culture - Final NO GROWTH AFTER 5 DAYS 11/09/19 12:20 Aerobic Blood Culture - Final Blood - Arterial Line - Direct Stick NO GROWTH AFTER 5 DAYS Anaerobic Blood Culture - Final NO GROWTH AFTER 5 DAYS Med Orders - Current: Current Medications Acetaminophen (Tylenol Extra Strength) 500 mg PO Q8H PRN PRN Reason: MILD PAIN Last Admin: 11/07/19 20:59 Dose: 500 mg Albuterol/Ipratropium (Duoneb 3.0-0.5 Mg/3 Ml) 3 ml INH QIDRT [facility] Last Admin: 11/15/19 07:49 Dose: 3 ml Albuterol/Ipratropium (Duoneb 3.0-0.5 Mg/3 Ml) 3 ml INH ASDIRECTED PRN PRN Reason: BREATHING Last Admin: 11/14/19 13:40 Dose: 3 ml Aspirin (Halfprin) 81 mg PO DAILY [facility] Last Admin: 11/15/19 08:20 Dose: 81 mg Atorvastatin Calcium (Lipitor) 20 mg PO DAILY [facility] Last Admin: 11/15/19 08:20 Dose: 20 mg Calcium Carbonate/Glycine (Tums) 1,000 mg PO Q2H PRN PRN Reason: Indigestion Last Admin: 11/08/19 09:29 Dose: 1,000 mg Carbamide Perox/Anhydrous Glycerin (Debrox 6.5% Otic Soln) 0 ml EARLF BID [facility] Last Admin: 11/15/19 08:20 Dose: 2 drop Cyclobenzaprine HCl (Flexeril) 10 mg PO Q8H PRN PRN Reason: Muscle Spasm Last Admin: 11/03/19 07:42 Dose: 10 mg Dextrose/Water (Dextrose 50% In Water) 50 ml IVPUSH ONETIME PRN PRN Reason: ACCUCHECK LESS THAN 70 Diphenhydramine HCl (Benadryl) 50 mg IVPUSH Q4H PRN PRN Reason: ITCHING Furosemide (Lasix) 40 mg PO DAILY [facility] Glucagon (Glucagen) 1 mg IM ONETIME PRN PRN Reason: ACCUCHECK LESS THAN 70 Glycopyrrolate/Indacaterol (Utibron Neohaler 27.5-15.6 Mcg) 0 each IH BIDRT [facility] Last Admin: 11/15/19 07:50 Dose: 1 puff Heparin Sodium (Porcine) (Heparin Sodium) 5,000 units SUBCUT Q12H [facility] Last Admin: 11/14/19 19:58 Dose: 5,000 units Heparin Sodium (Porcine) (Heparin Lock Flush 100 Units/Ml) 500 units FLUSH ASDIRECTED PRN PRN Reason: line maint Hydromorphone HCl (Dilaudid) 2 - 4 mg PO Q4H PRN PRN Reason: Pain Last Admin: 11/15/19 00:01 Dose: 4 mg Hydroxyzine HCl (Vistaril) 100 mg IM Q4H PRN PRN Reason: pain Last Admin: 11/05/19 21:08 Dose: 100 mg Multivitamins/Minerals 10 ml/Chromium/Copper/Manganese/Seleni/Zn 1 ml/ Amino Ac/ Electrol/Dextrose/Calcium 1,011 mls @ 40 mls/hr IV .Q24H [facility] Last Admin: 11/14/19 15:18 Dose: 40 mls/hr Insulin Human Lispro (Humalog) 0 unit SUBCUT Q6H PRN; Protocol PRN Reason: CORRECTIONAL DOSING Last Admin: 11/14/19 12:10 Dose: 5 units Levothyroxine Sodium 300 mcg/ (Levothyroxine Sodium 25 mcg) 325 mcg PO DAILY@ 0600 [facility] Last Admin: 11/15/19 05:51 Dose: 325 mcg Lorazepam (Ativan) 0.5 mg IVPUSH Q2H PRN PRN Reason: Anxiety Last Admin: 11/11/19 10:33 Dose: 0.5 mg Nitroglycerin (Nitrostat) 0.4 mg SL ASDIRECTED PRN PRN Reason: Chest Pain Nystatin (Mycostatin) 5 ml PO QID [facility] Last Admin: 11/15/19 05:52 Dose: Not Given Ondansetron HCl (Zofran) 4 mg IVPUSH Q4H PRN PRN Reason: Nausea/Vomiting Last Admin: 11/03/19 02:52 Dose: 4 mg Ondansetron HCl (Zofran Odt) 4 mg PO Q4H PRN PRN Reason: Nausea/Vomiting Pantoprazole Sodium (Protonix) 40 mg PO BIDAC [facility] Last Admin: 11/15/19 07:43 Dose: 40 mg Potassium Chloride (Klor-Con M20) 40 meq PO TID [facility] Last Admin: 11/15/19 08:20 Dose: 40 meq Testosterone Cypionate (Depo-Testosterone) 300 mg IM Q14D [facility] Last Admin: 11/01/19 11:00 Dose: 300 mg Zinc Gluconate (Zinc) 50 mg PO DAILY [facility] Last Admin: 11/15/19 08:20 Dose: 50 mg Discontinued Medications Acetaminophen (Tylenol Extra Strength) 1,000 mg PO Q8H [facility] Last Admin: 11/05/19 17:50 Dose: Not Given Albuterol (Ventolin Hfa) 0 gm INH Q4H PRN PRN Reason: * Albuterol/Ipratropium (Duoneb 3.0-0.5 Mg/3 Ml) 3 ml NEB ONETIME ONE Stop: 10/30/19 07:01 Last Admin: 10/30/19 07:28 Dose: 3 ml Bupivacaine HCl (Marcaine 0.5%) Confirm Administered Dose 50 ml .ROUTE .STK-MED ONE Stop: 10/30/19 06:34 Last Admin: 10/30/19 08:47 Dose: 5 ml Bupivacaine HCl (Marcaine 0.5%) Confirm Administered Dose 50 ml .ROUTE .STK-MED ONE Stop: 11/02/19 07:03 Calcium Carbonate (Caltrate 600+D 1500 Mg-400 Units) 1 tab PO BID [facility] Last Admin: 11/02/19 09:18 Dose: Not Given Ropivacaine 30 ml/Dexamethasone 8 mg/Epinephrine HCl 0.4 mg/ Sodium Chloride 47.6 ml 0 ml NERVRT ASDIRECTED [facility] Last Admin: 11/02/19 13:39 Dose: 80 syringe Cyanocobalamin (Vitamin B12) 1,000 mcg IM ONETIME ONE Stop: 11/04/19 09:01 Last Admin: 11/04/19 08:26 Dose: 1,000 mcg Dexamethasone (Dexamethasone) Confirm Administered Dose 4 mg .ROUTE .STK-MED ONE Stop: 11/02/19 08:40 Diphenoxylate HCl/Atropine (Lomotil 0.025-2.5 Mg) 1 tab PO QID [facility] Last Admin: 11/02/19 09:19 Dose: Not Given Docusate Sodium (Colace) 100 mg PO BID [facility] Last Admin: 11/06/19 20:01 Dose: Not Given Fentanyl (Sublimaze) Confirm Administered Dose 100 mcg .ROUTE .STK-MED ONE Stop: 10/30/19 07:13 Fentanyl (Sublimaze) Confirm Administered Dose 250 mcg .ROUTE .STK-MED ONE Stop: 11/02/19 08:40 Furosemide (Lasix) 10 mg IV ONETIME ONE Stop: 11/04/19 09:01 Last Admin: 11/04/19 08:51 Dose: 10 mg Furosemide (Lasix) 20 mg IV ONETIME ONE Stop: 11/04/19 12:31 Last Admin: 11/04/19 12:15 Dose: 20 mg Furosemide (Lasix) 20 mg IVPUSH ONETIME ONE Stop: 11/04/19 15:39 Last Admin: 11/04/19 15:49 Dose: 20 mg Furosemide (Lasix) 20 mg IV ONETIME ONE Stop: 11/05/19 12:01 Last Admin: 11/05/19 13:08 Dose: 20 mg Furosemide (Lasix) 40 mg IVPUSH ONETIME ONE Stop: 11/08/19 06:52 Last Admin: 11/08/19 07:18 Dose: 40 mg Furosemide (Lasix) 40 mg IVPUSH ONETIME ONE Stop: 11/08/19 23:27 Last Admin: 11/08/19 23:57 Dose: 40 mg Furosemide (Lasix) 40 mg IVPUSH ONETIME ONE Stop: 11/09/19 07:31 Last Admin: 11/09/19 08:35 Dose: 40 mg Furosemide (Lasix) 40 mg IVPUSH NOW ONE Stop: 11/09/19 19:01 Last Admin: 11/09/19 19:30 Dose: 40 mg Furosemide (Lasix) 40 mg IVPUSH Q12H [facility] Last Admin: 11/14/19 06:09 Dose: 40 mg Furosemide (Lasix) 40 mg IVPUSH Q12H [facility] Last Admin: 11/14/19 17:36 Dose: 40 mg Furosemide (Lasix) 40 mg IVPUSH DAILY [facility] Last Admin: 11/15/19 08:21 Dose: 40 mg Gabapentin (Neurontin) 300 mg PO TID [facility] Last Admin: 11/05/19 14:28 Dose: Not Given Glycopyrrolate (Robinul) Confirm Administered Dose 1 mg .ROUTE .STK-MED ONE Stop: 11/02/19 08:40 Heparin Sodium (Porcine) (Heparin Lock Flush 100 Units/Ml) Confirm Administered Dose 1,500 units .ROUTE .STK-MED ONE Stop: 10/30/19 06:34 Heparin Sodium (Porcine) (Heparin Lock Flush 100 Units/Ml) 500 units FLUSH ASDIRECTED PRN PRN Reason: IV Use Last Admin: 11/09/19 04:43 Dose: 500 units Hydromorphone HCl (Dilaudid) 0.5 mg IVPUSH Q2H PRN PRN Reason: MODERATE PAIN Last Admin: 11/06/19 21:38 Dose: 0.5 mg Hydromorphone HCl (Dilaudid) 1 mg IV Q2H PRN PRN Reason: SEVERE PAIN Last Admin: 11/02/19 21:13 Dose: 1 mg Dextrose/Lactated Ringer's (Dextrose 5%-Lactated Ringers) 1,000 mls @ 100 mls/ hr IV ASDIRECTED [facility] Last Admin: 10/30/19 07:28 Dose: 100 mls/hr Cefazolin Sodium/Dextrose 2 gm (/ Premix) 50 mls @ 100 mls/hr IV ONETIME ONE Stop: 10/30/19 08:59 Last Admin: 10/30/19 08:14 Dose: 100 mls/hr Dextrose/Lactated Ringer's (Dextrose 5%-Lactated Ringers) 1,000 mls @ 0 mls/hr IV ASDIRECTED [facility] Last Admin: 11/01/19 20:16 Dose: 25 mls/hr Multivitamins/Minerals 10 ml/Chromium/Copper/Manganese/Seleni/Zn 1 ml/ Amino Ac/ Electrol/Dextrose/Calcium 1,011 mls @ 100 mls/hr IV .BY DURATION [facility] Stop: 10/31/19 17:00 Last Admin: 10/31/19 07:34 Dose: 100 mls/hr Amino Ac/Electrol/Dextrose/Calcium (Clinimix E 5/15) 1,000 mls @ 100 mls/hr IV .BY DURATION [facility] Stop: 10/31/19 17:00 Last Admin: 10/30/19 22:53 Dose: 100 mls/hr Fat Emulsion Intravenous (Intralipid 20%) 250 mls @ 21 mls/hr IV ONETIME ONE Stop: 10/31/19 03:54 Last Admin: 10/30/19 15:32 Dose: 21 mls/hr Albumin Human (Albumin 25%) 25 gm in 100 mls @ 25 mls/hr IV Q24H [facility] Stop: 11/02/19 14:59 Last Admin: 10/30/19 11:51 Dose: 25 mls/hr Albumin Human (Albumin 25%) 25 gm in 100 mls @ 25 mls/hr IV Q24H [facility] Stop: 11/02/19 18:59 Last Admin: 10/30/19 15:31 Dose: 25 mls/hr Magnesium Sulfate 2 gm/ Premix 50 mls @ 25 mls/hr IV Q6H [facility] Stop: 11/03/19 03:59 Last Admin: 11/02/19 09:15 Dose: 25 mls/hr Potassium Phosphate 20 mmole/ (Sodium Chloride) 106.6667 mls @ 35 mls/hr IV Q3H [facility] Stop: 10/31/19 18:59 Last Admin: 10/31/19 16:31 Dose: 35 mls/hr Albumin Human (Albumin 25%) 25 gm in 100 mls @ 25 mls/hr IV Q24H [facility] Stop: 11/02/19 23:59 Last Admin: 11/02/19 20:58 Dose: 25 mls/hr Albumin Human (Albumin 25%) 25 gm in 100 mls @ 25 mls/hr IV Q24H [facility] Stop: 11/03/19 03:59 Last Admin: 11/03/19 00:00 Dose: 25 mls/hr Fat Emulsion Intravenous (Intralipid 20%) 250 mls @ 21 mls/hr IV Q24H [facility] Last Admin: 10/31/19 17:52 Dose: 21 mls/hr Multivitamins/Minerals 10 ml/Chromium/Copper/Manganese/Seleni/Zn 1 ml/ Amino Ac/ Electrol/Dextrose/Calcium 1,011 mls @ 100 mls/hr IV .BY DURATION [facility] Last Admin: 11/02/19 01:37 Dose: 100 mls/hr Amino Ac/Electrol/Dextrose/Calcium (Clinimix E 15) 1,000 mls @ 100 mls/hr IV .BY DURATION [facility] Last Admin: 11/02/19 11:57 Dose: 100 mls/hr Cefoxitin Sodium 2 gm/ Sodium (Chloride) 50 mls @ 100 mls/hr IV ONETIME ONE Stop: 11/02/19 08:29 Last Admin: 11/02/19 12:27 Dose: 100 mls/hr Ketamine HCl 50 mg/ Sodium (Chloride) 50 mls @ 18 mls/hr IV ASDIRECTED [facility] Magnesium Sulfate 1.5 gm/ (Sodium Chloride) 103 mls @ 206 mls/hr IV ASDIRECTED [facility] Magnesium Sulfate 2.4 gm/ (Sodium Chloride) 254.8 mls @ 31.85 mls/hr IV ONETIME ONE Stop: 11/02/19 16:59 Lactated Ringer's (Ringers, Lactated) Confirm Administered Dose 1,000 mls @ as directed .ROUTE .[facility] ONE Stop: 11/02/19 11:07 Sodium Chloride (Normal Saline) Confirm Administered Dose 250 mls @ as directed .ROUTE .[facility] ONE Stop: 11/02/19 14:37 Dextrose/Lactated Ringer's (Dextrose 5%-Lactated Ringers) 1,000 mls @ 50 mls/ hr IV ASDIRECTED [facility] Last Admin: 11/03/19 02:38 Dose: 50 mls/hr Magnesium Sulfate 2 gm/ Premix 50 mls @ 25 mls/hr IV Q6H [facility] Stop: 11/03/19 07:59 Last Admin: 11/03/19 05:32 Dose: 25 mls/hr Cefoxitin Sodium 2 gm/ Sodium (Chloride) 50 mls @ 100 mls/hr IV Q6H [facility] Stop: 11/03/19 06:29 Last Admin: 11/03/19 05:36 Dose: 100 mls/hr Multivitamins/Minerals 10 ml/Chromium/Copper/Manganese/Seleni/Zn 1 ml/ Amino Ac/ Electrol/Dextrose/Calcium 1,011 mls @ 100 mls/hr IV .BY DURATION [facility] Stop: 11/03/19 18:30 Last Admin: 11/03/19 04:13 Dose: Not Given Amino Ac/Electrol/Dextrose/Calcium (Clinimix E 5/15) 1,000 mls @ 100 mls/hr IV .BY DURATION [facility] Stop: 11/03/19 18:30 Last Admin: 11/03/19 12:38 Dose: Not Given Dextrose/Lactated Ringer's (Dextrose 5%-Lactated Ringers) 1,000 mls @ 0 mls/hr IV ASDIRECTED [facility] Last Admin: 11/03/19 13:12 Dose: 25 mls/hr Multivitamins/Minerals 10 ml/Chromium/Copper/Manganese/Seleni/Zn 1 ml/ Amino Ac/ Electrol/Dextrose/Calcium 1,011 mls @ 100 mls/hr IV .BY DURATION [facility] Stop: 11/06/19 17:00 Last Admin: 11/06/19 09:20 Dose: 100 mls/hr Amino Ac/Electrol/Dextrose/Calcium (Clinimix E 5/15) 1,000 mls @ 100 mls/hr IV .BY DURATION [facility] Stop: 11/06/19 17:00 Last Admin: 11/05/19 23:17 Dose: 100 mls/hr Multivitamins/Minerals 10 ml/Chromium/Copper/Manganese/Seleni/Zn 1 ml/ Amino Ac/ Electrol/Dextrose/Calcium 1,011 mls @ 80 mls/hr IV .BY DURATION [facility] Stop: 11/07/19 09:45 Amino Ac/Electrol/Dextrose/Calcium (Clinimix E 5/15) 1,000 mls @ 80 mls/hr IV .BY DURATION [facility] Stop: 11/07/19 09:45 Last Admin: 11/06/19 21:42 Dose: 80 mls/hr Magnesium Sulfate 2 gm/ Premix 50 mls @ 25 mls/hr IV Q6H [facility] Stop: 11/10/19 05:59 Last Admin: 11/09/19 12:05 Dose: Not Given Multivitamins/Minerals 10 ml/Chromium/Copper/Manganese/Seleni/Zn 1 ml/ Amino Ac/ Electrol/Dextrose/Calcium 1,011 mls @ 40 mls/hr IV .BY DURATION [facility] Stop: 11/08/19 09:55 Last Admin: 11/07/19 10:47 Dose: 40 mls/hr Amino Ac/Electrol/Dextrose/Calcium (Clinimix E 5/15) 1,000 mls @ 40 mls/hr IV .BY DURATION [facility] Stop: 11/08/19 09:55 Albumin Human (Albumin 25%) 25 gm in 100 mls @ 25 mls/hr IV Q4H [facility] Stop: 11/08/19 16:29 Last Admin: 11/08/19 12:28 Dose: 25 mls/hr Albumin Human (Albumin 25%) 25 gm in 100 mls @ 25 mls/hr IV Q2H [facility] Stop: 11/09/19 09:59 Last Admin: 11/09/19 09:51 Dose: Not Given Piperacillin Sod/Tazobactam (Sod 3.375 gm/ Sodium Chloride) 50 mls @ 100 mls/ hr IV Q6H [facility] Last Admin: 11/09/19 05:49 Dose: 100 mls/hr Piperacillin/Tazobactam/ (Dextrose 3.375 gm/ Premix) 50 mls @ 100 mls/hr IV Q6H [facility] Last Admin: 11/15/19 05:47 Dose: 100 mls/hr Sodium Chloride (Normal Saline) 100 mls @ 4 mls/sec IV ASDIRECTED [facility] Stop: 11/09/19 11:00 Last Admin: 11/09/19 10:18 Dose: 4 mls/sec Azithromycin 500 mg/ Sodium (Chloride) 250 mls @ 250 mls/hr IV Q24H [facility] Last Admin: 11/12/19 13:09 Dose: 250 mls/hr Linezolid 600 mg/ Premix 300 mls @ 300 mls/hr IV Q12H [facility] Last Admin: 11/10/19 23:43 Dose: 300 mls/hr Iopamidol (Isovue-300 (61%)) 50 ml PO ASDIRECTED [facility] Stop: 11/03/19 04:21 Last Admin: 11/03/19 04:35 Dose: 50 ml Iopamidol (Isovue-300 (61%)) 50 ml PO ASDIRECTED [facility] Stop: 11/06/19 04:01 Last Admin: 11/06/19 04:33 Dose: 50 ml Iopamidol (Isovue-370 (76%)) 100 ml IV . DIRECTED ONE Stop: 11/09/19 09:10 Last Admin: 11/09/19 10:19 Dose: 100 ml Ketamine HCl (Ketalar) 0 mg IV BOLUS [facility] Ketamine HCl (Ketalar) 0 mg IV ASDIRECTED [facility] Ketamine HCl (Ketalar) 30 mg IV ASDIRECTED [facility] Labetalol HCl (Normodyne) 5 mg IVPUSH Q5M PRN PRN Reason: SBP over 160 OR DBP over 95 Lidocaine/Epinephrine (Xylocaine 1% With Epinephrine 1:100,000) Confirm Administered Dose 50 ml .ROUTE .STK-MED ONE Stop: 10/30/19 06:34 Last Admin: 10/30/19 08:47 Dose: 5 ml Lidocaine/Epinephrine (Xylocaine 1% With Epinephrine 1:100,000) Confirm Administered Dose 50 ml .ROUTE .STK-MED ONE Stop: 11/02/19 07:04 Loperamide HCl (Imodium) 4 mg PO QID [facility] Last Admin: 11/02/19 09:19 Dose: Not Given Lorazepam (Ativan) 0.5 mg IVPUSH ONETIME ONE Stop: 11/09/19 11:33 Last Admin: 11/09/19 11:53 Dose: 0.5 mg Lorazepam (Ativan) Confirm Administered Dose 2 mg .ROUTE .STK-MED ONE Stop: 11/09/19 11:35 Last Admin: 11/09/19 11:56 Dose: Not Given Magnesium Oxide (Magnesium Oxide) 400 mg PO DAILY [facility] Last Admin: 11/02/19 09:19 Dose: Not Given Meropenem (Merrem) Confirm Administered Dose 500 mg .ROUTE .STK-MED ONE Stop: 11/02/19 07:03 Last Admin: 11/02/19 13:27 Dose: 500 mg Metoclopramide HCl (Reglan) 10 mg IVPUSH Q6H PRN PRN Reason: NAUSEA NOT CONTROL BY ZOFRAN Last Admin: 11/02/19 19:00 Dose: 10 mg Midazolam HCl (Versed 1 Mg/Ml) Confirm Administered Dose 2 mg .ROUTE .STK-MED ONE Stop: 10/30/19 07:13 Neostigmine Methylsulfate (Neostigmine) Confirm Administered Dose 5 mg .ROUTE .STK-MED ONE Stop: 11/02/19 08:40 Non-Formulary Medication (Total Parenteral Nutrition, Central) 1,000 ml .XX .Continue Order [facility] Stop: 11/01/19 18:00 Non-Formulary Medication (Tap Block, Pharmacy To Dose) 0 ml NERVRT ONARRIVE [facility] Stop: 11/02/19 08:01 Non-Formulary Medication (Total Parenteral Nutrition, Central) 1,000 ml .XX .Continue Order [facility] Stop: 11/03/19 08:01 Non-Formulary Medication (Total Parenteral Nutrition, Central) 1,000 ml .XX .Continue Order [facility] Stop: 11/06/19 12:00 Non-Formulary Medication (Total Parenteral Nutrition, Central) 1,000 ml .XX .Continue Order [facility] Stop: 11/07/19 21:00 Non-Formulary Medication (Total Parenteral Nutrition, Central) 1,000 ml .XX .Continue Order [facility] Stop: 11/08/19 10:00 Non-Formulary Medication (Total Parenteral Nutrition, Central) 1,000 ml .XX .Continue Order [facility] Stop: 11/12/19 10:00 Ondansetron HCl (Zofran) Confirm Administered Dose 4 mg .ROUTE .STK-MED ONE Stop: 11/02/19 08:40 Oxycodone HCl (Oxycodone) 5 mg PO Q6H PRN PRN Reason: PAIN Pantoprazole Sodium (Protonix) 40 mg PO ACBREAKFAST [facility] Last Admin: 10/30/19 11:34 Dose: 40 mg Pantoprazole Sodium (Protonix) 40 mg PO QPM [facility] Last Admin: 11/01/19 16:11 Dose: 40 mg Pantoprazole Sodium (Protonix Iv) 40 mg IVPUSH Q24H [facility] Last Admin: 11/03/19 18:13 Dose: 40 mg Pantoprazole Sodium (Protonix Iv) 40 mg IVPUSH Q12H [facility] Last Admin: 11/07/19 08:43 Dose: 40 mg Potassium Chloride (Klor-Con M20) 20 meq PO TID [facility] Last Admin: 11/11/19 08:01 Dose: 20 meq Propofol (Diprivan 20 Ml) Confirm Administered Dose 200 mg .ROUTE .STK-MED ONE Stop: 10/30/19 07:13 Propofol (Diprivan 20 Ml) Confirm Administered Dose 200 mg .ROUTE .STK-MED ONE Stop: 11/02/19 08:40 Rocuronium Andrews (Zemuron) Confirm Administered Dose 50 mg .ROUTE .STK-MED ONE Stop: 11/02/19 08:40 Senna/Docusate Sodium (Senna Plus) 2 tab PO BID PRN PRN Reason: Constipation Succinylcholine Chloride (Quelicin) Confirm Administered Dose 200 mg .ROUTE .STK -MED ONE Stop: 11/02/19 08:40 - Exam Quality Assessment: Supplemental Oxygen, DVT Prophylaxis General: Alert, Oriented, Cooperative, Mild Distress Lungs: Clear to Auscultation, Normal Respiratory Effort, Decreased Breath Sounds Cardiovascular: Regular Rate, Regular Rhythm, No Murmurs GI/Abdominal Exam: Soft, Non-Tender, No Organomegaly, No Distention Extremities: Non-Tender, No Pedal Edema Sepsis Event Note - Evaluation Sepsis Screening Result: No Definite Risk - Focused Exam Vital Signs: Vital Signs Temp Temp Pulse Resp BP Pulse Ox Pulse Ox 11/15/19 08:00 96 F L 12 123/77 98 11/15/19 07:51 76 100 11/15/19 06:00 97.1 F 75 19 126/73 100 11/15/19 04:00 74 12 120/74 99 11/15/19 02:00 73 10 L 151/76 H 94 L 11/15/19 00:00 97.7 F 84 13 116/74 93 L 11/14/19 22:00 98 F 81 18 105/69 99 Date Exam was Performed: 11/15/19 Time Exam was Performed: 09:42 Consult PN Assessment/Plan Procedures: Procedures ALANINE AMINO (ALT) (SGPT) (02/27/19) ASSAY ALKALINE PHOSPHATASE (02/27/19) ASSAY GLUCOSE BLOOD QUANT (11/14/18) ASSAY OF CALCIUM (11/14/18) ASSAY OF CREATININE (11/14/18) ASSAY OF MAGNESIUM (02/27/19) ASSAY OF PHOSPHORUS (02/27/19) ASSAY OF PREALBUMIN (02/27/19) ASSAY OF SERUM ALBUMIN (02/27/19) ASSAY OF TRIGLYCERIDES (02/27/19) ASSAY OF UREA NITROGEN (11/14/18) ASSAY THYROID STIM HORMONE (11/14/18) BILIRUBIN TOTAL (02/27/19) BLOOD TYPING SEROLOGIC ABO (09/26/15) BLOOD TYPING SEROLOGIC RH(D) (09/26/15) C DIFF AMPLIFIED PROBE (09/23/18) CARDIOVASCULAR STRESS TEST (07/03/19) CHEST X-RAY 2VW FRONTAL&LATL (11/20/14) COMPLETE CBC AUTOMATED (11/20/14) COMPLETE CBC W/AUTO DIFF WBC (02/27/19) COMPREHEN METABOLIC PANEL (12/19/18) CT THORAX W/DYE (12/19/18) CULTR BACTERIA EXCEPT BLOOD (06/22/19) CULTURE OTHR SPECIMN AEROBIC (06/22/19) DRAIN LOWER LEG LESION (06/22/19) ELECTROLYTE PANEL (11/14/18) EMERGENCY DEPT VISIT (09/22/18) EXTRACRANIAL BILAT STUDY (12/21/18) GLUCOSE BLOOD TEST (11/20/14) HEPATIC FUNCTION PANEL (11/23/18) HT MUSCLE IMAGE SPECT MULT (07/03/19) HYDRATION IV INFUSION INIT (04/15/16) LAP VENT/ABD HERNIA REPAIR (11/20/14) LAPAROSCOPIC CHOLECYSTECTOMY (11/20/14) METABOLIC PANEL TOTAL CA (02/27/19) OVA AND PARASITES SMEARS (09/23/18) POLYSOM ANY AGE 1-3> GISELLA (02/03/16) RBC ANTIBODY SCREEN (09/26/15) ROUTINE VENIPUNCTURE (01/24/19) SMEAR COMPLEX STAIN (09/23/18) SMEAR GRAM STAIN (06/22/19) THER/PROPH/DIAG IV INF ADDON (04/15/16) THER/PROPH/DIAG IV INF INIT (04/15/16) TRANSFERASE (AST) (SGOT) (02/27/19) TTE W/DOPPLER COMPLETE (08/09/18) TX/PRO/DX INJ NEW DRUG ADDON (04/15/16) URINALYSIS AUTO W/SCOPE (09/22/18) US EXAM ABDOM COMPLETE (01/06/19) Problem List Initiated/Reviewed/Updated: Yes My Orders Last 24 Hours: My Active Orders 11/14/19 14:30 Carbamide Peroxide [Debrox 6.5% Otic Soln] See Dose Instructions EARLF BID 11/15/19 09:35 Discontinue Telemetry Monitoring [Cardiac Monitoring Discontinue] [RC] Click to Edit 11/16/19 09:00 Furosemide [Lasix] 40 mg PO DAILY Plan: ASSESSMENT AND RECOMMENDATIONS ACUTE HYPOXIC RESPIRATORY FAILURE-so far the picture seems to be most consistent with fluid overload and CHF and a component of ARDS, versus less likely infection. Good improvement in oxygenation and shortness of breath over the last 24 hours. -Noninvasive positive pressure ventilation -Furosemide 40 mg p.o. daily -Discontinue IV Pip/Tazo -Follow-up cultures HYPOKALEMIA-resolved STATUS POST REVISION DUODENAL ILEOSTOMY-stable. -Management per Dr. Nicolas HYPOTHYROIDISM-modest elevation in TSH despite ongoing thyroid replacement therapy with levothyroxine. Recent TSH elevated at 8 and dose of levothyroxine has been increased. 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 Nicolas
[2019-11-15] MEDS: Heparin Sodium 5,000 Units/ML Vial SUBCUT SCH (10:52)
[2019-11-15] MEDS: Testosterone Cypionate 200 MG/ML MDV IM SCH (10:52)
[2019-11-15] MEDS: VITAMIN K IV SCH ×3 (13:40)
[2019-11-15] MEDS: [UNRECOGNIZED DRUG - OTHER] IV SCH ×3 (13:40)
[2019-11-15] MEDS: MVI IV SCH ×3 (13:40)
[2019-11-15] MEDS: CALCIUM IV SCH ×3 (13:40)
[2019-11-15] MEDS: LYTES IV SCH ×3 (13:40)
--- NOTE | 2019-11-15 15:48 | PN ---
DATE OF SERVICE: 11/14/2019 The patient has been afebrile with stable vital signs. He is now tolerating long periods off the BiPAP. Labs are good this morning, and we will continue the TPN at a low rate. He is eating more, and he is basically on a Step-4 regular diet. He is encouraged not to eat a lot of bulky items, as the duodenoileostomy is probably still somewhat edematous. Otherwise, at this point, we will need to work on rehab with him up and walking as much as possible. Manfred Nicolas MD /[id number]
--- NOTE | 2019-11-15 15:54 | PN ---
DATE OF SERVICE: 11/15/2019 The patient has been afebrile with stable vital signs. No major problems were noted. Still using some BiPAP at night. Does desaturate quite a bit when he is walking and probably still needs a little bit more in the way of diuresis and rehabilitation. We will continue the TPN at a low rate. He is eating quite well at this point as well, and once he is able to be off the BiPAP for 24 hours and not desaturating so much with activity, at that point he would be then ready for discharge. We will allow Dr. Chou's team to manage the pulmonary status. Manfred Nicolas MD /[id number]
[2019-11-16] MEDS: Nystatin Susp 100,000 Unit/ML 5 ML UD Cup PO SCH ×4 (06:14→21:12)
[2019-11-16] MEDS: Albuterol/Ipratropium 3.0-0.5 MG/3 ML Neb Soln INH SCH ×4 (07:02→21:18)
[2019-11-16] MEDS: Indacaterol/Glycopyrrolate 1 EA Cap.W.Dev Kit of 6 IH SCH ×2 (07:02→21:14)
[2019-11-16] MEDS: Aspirin 81 MG Tab.EC PO SCH (08:24)
[2019-11-16] MEDS: Carbamide Peroxide 6.5% Otic Soln 15 ML Bottle EARLF SCH ×2 (08:24→21:13)
[2019-11-16] MEDS: Pantoprazole 40 MG Tab.CR PO SCH ×2 (08:24→15:53)
[2019-11-16] MEDS: Potassium Chloride 20 MEQ Tab.ER PO SCH ×4 (08:24→21:12)
[2019-11-16] MEDS: Enoxaparin 40 MG/0.4 ML Syringe SUBCUT SCH (08:25)
[2019-11-16] MEDS: Zinc (Zinc Gluconate) 50 MG Tab PO SCH (08:25)
[2019-11-16] MEDS: atorvaSTATin 20 MG Tab PO SCH (08:26)
[2019-11-16] MEDS ORDERED: Furosemide 40 MG Tab PO SCH (09:00)
--- NOTE | 2019-11-16 10:24 | PCM.CONSN ---
- General Info Date of Service: 11/16/19 Subjective Update: Mr. Griffith is somewhat more weak and tired this morning, compared to yesterday. Continues to require supplemental oxygen, rarely using noninvasive positive pressure ventilation at the present time. Appetite remains good and oral intake significantly improved over the past few days. Functional Status: Reports: Tolerating Diet, Ambulating, Urinating - Review of Systems General: Reports: Weakness. Denies: Fever, Chills Pulmonary: Reports: Shortness of Breath. Denies: Pleuritic Chest Pain, Cough, Sputum, Hemoptysis, Wheezing Cardiovascular: Reports: Dyspnea on Exertion. Denies: Chest Pain, Palpitations , Orthopnea, PND, Edema, Lightheadedness Gastrointestinal: Reports: No Symptoms - Patient Data Vitals - Most Recent: Last Vital Signs Temp 97.1 F 11/16/19 07:31 Pulse 74 11/16/19 07:31 Resp 18 11/16/19 07:31 BP 117/70 11/16/19 07:31 Pulse Ox 97 11/16/19 07:31 Weight - Most Recent: 96 lb 1.6 oz I&O - Last 24 Hours: Intake & Output 11/15/19 11/16/19 11/16/19 22:59 06:59 14:59 Intake Total 1020 675 Output Total 600 Balance 1020 75 Med Orders - Current: Current Medications Acetaminophen (Tylenol Extra Strength) 500 mg PO Q8H PRN PRN Reason: MILD PAIN Last Admin: 11/07/19 20:59 Dose: 500 mg Albuterol/Ipratropium (Duoneb 3.0-0.5 Mg/3 Ml) 3 ml INH QIDRT [facility] [place] Last Admin: 11/16/19 07:02 Dose: 3 ml Albuterol/Ipratropium (Duoneb 3.0-0.5 Mg/3 Ml) 3 ml INH ASDIRECTED PRN PRN Reason: BREATHING Last Admin: 11/14/19 13:40 Dose: 3 ml Aspirin (Halfprin) 81 mg PO DAILY [facility] [place] Last Admin: 11/16/19 08:24 Dose: 81 mg Atorvastatin Calcium (Lipitor) 20 mg PO DAILY [facility] [place] Last Admin: 11/16/19 08:26 Dose: 20 mg Calcium Carbonate/Glycine (Tums) 1,000 mg PO Q2H PRN PRN Reason: Indigestion Last Admin: 11/08/19 09:29 Dose: 1,000 mg Carbamide Perox/Anhydrous Glycerin (Debrox 6.5% Otic Soln) 0 ml EARLF BID [facility] [place] Last Admin: 11/16/19 08:24 Dose: 2 drop Cyclobenzaprine HCl (Flexeril) 10 mg PO Q8H PRN PRN Reason: Muscle Spasm Last Admin: 11/03/19 07:42 Dose: 10 mg Dextrose/Water (Dextrose 50% In Water) 50 ml IVPUSH ONETIME PRN PRN Reason: ACCUCHECK LESS THAN 70 Diphenhydramine HCl (Benadryl) 50 mg IVPUSH Q4H PRN PRN Reason: ITCHING Enoxaparin Sodium (Lovenox) 40 mg SUBCUT DAILY [facility] [place] Last Admin: 11/16/19 08:25 Dose: 40 mg Glucagon (Glucagen) 1 mg IM ONETIME PRN PRN Reason: ACCUCHECK LESS THAN 70 Glycopyrrolate/Indacaterol (Utibron Neohaler 27.5-15.6 Mcg) 0 each IH BIDRT [facility] [place] Last Admin: 11/16/19 07:02 Dose: 1 puff Heparin Sodium (Porcine) (Heparin Lock Flush 100 Units/Ml) 500 units FLUSH ASDIRECTED PRN PRN Reason: line maint Last Admin: 11/15/19 10:53 Dose: 500 units Hydromorphone HCl (Dilaudid) 2 - 4 mg PO Q4H PRN PRN Reason: Pain Last Admin: 11/15/19 16:53 Dose: 4 mg Hydroxyzine HCl (Vistaril) 100 mg IM Q4H PRN PRN Reason: pain Last Admin: 11/05/19 21:08 Dose: 100 mg Insulin Human Lispro (Humalog) 0 unit SUBCUT Q6H PRN; Protocol PRN Reason: CORRECTIONAL DOSING Last Admin: 11/14/19 12:10 Dose: 5 units Levothyroxine Sodium 300 mcg/ (Levothyroxine Sodium 25 mcg) 325 mcg PO DAILY@ 0600 [facility] [place] Last Admin: 11/16/19 05:52 Dose: 325 mcg Lorazepam (Ativan) 0.5 mg IVPUSH Q2H PRN PRN Reason: Anxiety Last Admin: 11/11/19 10:33 Dose: 0.5 mg Nitroglycerin (Nitrostat) 0.4 mg SL ASDIRECTED PRN PRN Reason: Chest Pain Nystatin (Mycostatin) 5 ml PO QID [facility] [place] Last Admin: 11/16/19 06:14 Dose: Not Given Ondansetron HCl (Zofran) 4 mg IVPUSH Q4H PRN PRN Reason: Nausea/Vomiting Last Admin: 11/03/19 02:52 Dose: 4 mg Ondansetron HCl (Zofran Odt) 4 mg PO Q4H PRN PRN Reason: Nausea/Vomiting Pantoprazole Sodium (Protonix) 40 mg PO BIDAC [facility] [place] Last Admin: 11/16/19 08:24 Dose: 40 mg Potassium Chloride (Klor-Con M20) 40 meq PO TID [facility] [place] Last Admin: 11/16/19 08:24 Dose: 40 meq Testosterone Cypionate (Depo-Testosterone) 300 mg IM Q14D [facility] [place] Last Admin: 11/15/19 10:52 Dose: 300 mg Zinc Gluconate (Zinc) 50 mg PO DAILY [facility] [place] Last Admin: 11/16/19 08:25 Dose: 50 mg Discontinued Medications Acetaminophen (Tylenol Extra Strength) 1,000 mg PO Q8H [facility] [place] Last Admin: 11/05/19 17:50 Dose: Not Given Albuterol (Ventolin Hfa) 0 gm INH Q4H PRN PRN Reason: * Albuterol/Ipratropium (Duoneb 3.0-0.5 Mg/3 Ml) 3 ml NEB ONETIME ONE Stop: 10/30/19 07:01 Last Admin: 10/30/19 07:28 Dose: 3 ml Bupivacaine HCl (Marcaine 0.5%) Confirm Administered Dose 50 ml .ROUTE .STK-MED ONE Stop: 10/30/19 06:34 Last Admin: 10/30/19 08:47 Dose: 5 ml Bupivacaine HCl (Marcaine 0.5%) Confirm Administered Dose 50 ml .ROUTE .STK-MED ONE Stop: 11/02/19 07:03 Calcium Carbonate (Caltrate 600+D 1500 Mg-400 Units) 1 tab PO BID [facility] [place] Last Admin: 11/02/19 09:18 Dose: Not Given Ropivacaine 30 ml/Dexamethasone 8 mg/Epinephrine HCl 0.4 mg/ Sodium Chloride 47.6 ml 0 ml NERVRT ASDIRECTED [facility] [place] Last Admin: 11/02/19 13:39 Dose: 80 syringe Cyanocobalamin (Vitamin B12) 1,000 mcg IM ONETIME ONE Stop: 11/04/19 09:01 Last Admin: 11/04/19 08:26 Dose: 1,000 mcg Dexamethasone (Dexamethasone) Confirm Administered Dose 4 mg .ROUTE .STK-MED ONE Stop: 11/02/19 08:40 Diphenoxylate HCl/Atropine (Lomotil 0.025-2.5 Mg) 1 tab PO QID [facility] [place] Last Admin: 11/02/19 09:19 Dose: Not Given Docusate Sodium (Colace) 100 mg PO BID [facility] [place] Last Admin: 11/06/19 20:01 Dose: Not Given Fentanyl (Sublimaze) Confirm Administered Dose 100 mcg .ROUTE .STK-MED ONE Stop: 10/30/19 07:13 Fentanyl (Sublimaze) Confirm Administered Dose 250 mcg .ROUTE .STK-MED ONE Stop: 11/02/19 08:40 Furosemide (Lasix) 10 mg IV ONETIME ONE Stop: 11/04/19 09:01 Last Admin: 11/04/19 08:51 Dose: 10 mg Furosemide (Lasix) 20 mg IV ONETIME ONE Stop: 11/04/19 12:31 Last Admin: 11/04/19 12:15 Dose: 20 mg Furosemide (Lasix) 20 mg IVPUSH ONETIME ONE Stop: 11/04/19 15:39 Last Admin: 11/04/19 15:49 Dose: 20 mg Furosemide (Lasix) 20 mg IV ONETIME ONE Stop: 11/05/19 12:01 Last Admin: 11/05/19 13:08 Dose: 20 mg Furosemide (Lasix) 40 mg IVPUSH ONETIME ONE Stop: 11/08/19 06:52 Last Admin: 11/08/19 07:18 Dose: 40 mg Furosemide (Lasix) 40 mg IVPUSH ONETIME ONE Stop: 11/08/19 23:27 Last Admin: 11/08/19 23:57 Dose: 40 mg Furosemide (Lasix) 40 mg IVPUSH ONETIME ONE Stop: 11/09/19 07:31 Last Admin: 11/09/19 08:35 Dose: 40 mg Furosemide (Lasix) 40 mg IVPUSH NOW ONE Stop: 11/09/19 19:01 Last Admin: 11/09/19 19:30 Dose: 40 mg Furosemide (Lasix) 40 mg IVPUSH Q12H [facility] [place] Last Admin: 11/14/19 06:09 Dose: 40 mg Furosemide (Lasix) 40 mg IVPUSH Q12H [facility] [place] Last Admin: 11/14/19 17:36 Dose: 40 mg Furosemide (Lasix) 40 mg IVPUSH DAILY [facility] [place] Last Admin: 11/15/19 08:21 Dose: 40 mg Furosemide (Lasix) 40 mg PO DAILY [facility] [place] Last Admin: 11/16/19 08:26 Dose: 40 mg Gabapentin (Neurontin) 300 mg PO TID [facility] [place] Last Admin: 11/05/19 14:28 Dose: Not Given Glycopyrrolate (Robinul) Confirm Administered Dose 1 mg .ROUTE .STK-MED ONE Stop: 11/02/19 08:40 Heparin Sodium (Porcine) (Heparin Lock Flush 100 Units/Ml) Confirm Administered Dose 1,500 units .ROUTE .STK-MED ONE Stop: 10/30/19 06:34 Heparin Sodium (Porcine) (Heparin Lock Flush 100 Units/Ml) 500 units FLUSH ASDIRECTED PRN PRN Reason: IV Use Last Admin: 11/09/19 04:43 Dose: 500 units Heparin Sodium (Porcine) (Heparin Sodium) 5,000 units SUBCUT Q12H [facility] [place] Last Admin: 11/15/19 10:52 Dose: 5,000 units Hydromorphone HCl (Dilaudid) 0.5 mg IVPUSH Q2H PRN PRN Reason: MODERATE PAIN Last Admin: 11/06/19 21:38 Dose: 0.5 mg Hydromorphone HCl (Dilaudid) 1 mg IV Q2H PRN PRN Reason: SEVERE PAIN Last Admin: 11/02/19 21:13 Dose: 1 mg Dextrose/Lactated Ringer's (Dextrose 5%-Lactated Ringers) 1,000 mls @ 100 mls/ hr IV ASDIRECTED [facility] [place] Last Admin: 10/30/19 07:28 Dose: 100 mls/hr Cefazolin Sodium/Dextrose 2 gm (/ Premix) 50 mls @ 100 mls/hr IV ONETIME ONE Stop: 10/30/19 08:59 Last Admin: 10/30/19 08:14 Dose: 100 mls/hr Dextrose/Lactated Ringer's (Dextrose 5%-Lactated Ringers) 1,000 mls @ 0 mls/hr IV ASDIRECTED [facility] [place] Last Admin: 11/01/19 20:16 Dose: 25 mls/hr Multivitamins/Minerals 10 ml/Chromium/Copper/Manganese/Seleni/Zn 1 ml/ Amino Ac/ Electrol/Dextrose/Calcium 1,011 mls @ 100 mls/hr IV .BY DURATION [facility] [place] Stop: 10/31/19 17:00 Last Admin: 10/31/19 07:34 Dose: 100 mls/hr Amino Ac/Electrol/Dextrose/Calcium (Clinimix E 01/11) 1,000 mls @ 100 mls/hr IV .BY DURATION [facility] [place] Stop: 10/31/19 17:00 Last Admin: 10/30/19 22:53 Dose: 100 mls/hr Fat Emulsion Intravenous (Intralipid 20%) 250 mls @ 21 mls/hr IV ONETIME ONE Stop: 10/31/19 03:54 Last Admin: 10/30/19 15:32 Dose: 21 mls/hr Albumin Human (Albumin 25%) 25 gm in 100 mls @ 25 mls/hr IV Q24H [facility] [place] Stop: 11/02/19 14:59 Last Admin: 10/30/19 11:51 Dose: 25 mls/hr Albumin Human (Albumin 25%) 25 gm in 100 mls @ 25 mls/hr IV Q24H [facility] [place] Stop: 11/02/19 18:59 Last Admin: 10/30/19 15:31 Dose: 25 mls/hr Magnesium Sulfate 2 gm/ Premix 50 mls @ 25 mls/hr IV Q6H [facility] [place] Stop: 11/03/19 03:59 Last Admin: 11/02/19 09:15 Dose: 25 mls/hr Potassium Phosphate 20 mmole/ (Sodium Chloride) 106.6667 mls @ 35 mls/hr IV Q3H [facility] [place] Stop: 10/31/19 18:59 Last Admin: 10/31/19 16:31 Dose: 35 mls/hr Albumin Human (Albumin 25%) 25 gm in 100 mls @ 25 mls/hr IV Q24H [facility] [place] Stop: 11/02/19 23:59 Last Admin: 11/02/19 20:58 Dose: 25 mls/hr Albumin Human (Albumin 25%) 25 gm in 100 mls @ 25 mls/hr IV Q24H [facility] [place] Stop: 11/03/19 03:59 Last Admin: 11/03/19 00:00 Dose: 25 mls/hr Fat Emulsion Intravenous (Intralipid 20%) 250 mls @ 21 mls/hr IV Q24H [facility] [place] Last Admin: 10/31/19 17:52 Dose: 21 mls/hr Multivitamins/Minerals 10 ml/Chromium/Copper/Manganese/Seleni/Zn 1 ml/ Amino Ac/ Electrol/Dextrose/Calcium 1,011 mls @ 100 mls/hr IV .BY DURATION [facility] [place] Last Admin: 11/02/19 01:37 Dose: 100 mls/hr Amino Ac/Electrol/Dextrose/Calcium (Clinimix E 15) 1,000 mls @ 100 mls/hr IV .BY DURATION [facility] [place] Last Admin: 11/02/19 11:57 Dose: 100 mls/hr Cefoxitin Sodium 2 gm/ Sodium (Chloride) 50 mls @ 100 mls/hr IV ONETIME ONE Stop: 11/02/19 08:29 Last Admin: 11/02/19 12:27 Dose: 100 mls/hr Ketamine HCl 50 mg/ Sodium (Chloride) 50 mls @ 18 mls/hr IV ASDIRECTED [facility] [place] Magnesium Sulfate 1.5 gm/ (Sodium Chloride) 103 mls @ 206 mls/hr IV ASDIRECTED [facility] [place] Magnesium Sulfate 2.4 gm/ (Sodium Chloride) 254.8 mls @ 31.85 mls/hr IV ONETIME ONE Stop: 11/02/19 16:59 Lactated Ringer's (Ringers, Lactated) Confirm Administered Dose 1,000 mls @ as directed .ROUTE .STK-MED ONE Stop: 11/02/19 11:07 Sodium Chloride (Normal Saline) Confirm Administered Dose 250 mls @ as directed .ROUTE .STK-MED ONE Stop: 11/02/19 14:37 Dextrose/Lactated Ringer's (Dextrose 5%-Lactated Ringers) 1,000 mls @ 50 mls/ hr IV ASDIRECTED [facility] [place] Last Admin: 11/03/19 02:38 Dose: 50 mls/hr Magnesium Sulfate 2 gm/ Premix 50 mls @ 25 mls/hr IV Q6H [facility] [place] Stop: 11/03/19 07:59 Last Admin: 11/03/19 05:32 Dose: 25 mls/hr Cefoxitin Sodium 2 gm/ Sodium (Chloride) 50 mls @ 100 mls/hr IV Q6H [facility] [place] Stop: 11/03/19 06:29 Last Admin: 11/03/19 05:36 Dose: 100 mls/hr Multivitamins/Minerals 10 ml/Chromium/Copper/Manganese/Seleni/Zn 1 ml/ Amino Ac/ Electrol/Dextrose/Calcium 1,011 mls @ 100 mls/hr IV .BY DURATION [facility] [place] Stop: 11/03/19 18:30 Last Admin: 11/03/19 04:13 Dose: Not Given Amino Ac/Electrol/Dextrose/Calcium (Clinimix E 5/15) 1,000 mls @ 100 mls/hr IV .BY DURATION [facility] [place] Stop: 11/03/19 18:30 Last Admin: 11/03/19 12:38 Dose: Not Given Dextrose/Lactated Ringer's (Dextrose 5%-Lactated Ringers) 1,000 mls @ 0 mls/hr IV ASDIRECTED [facility] [place] Last Admin: 11/03/19 13:12 Dose: 25 mls/hr Multivitamins/Minerals 10 ml/Chromium/Copper/Manganese/Seleni/Zn 1 ml/ Amino Ac/ Electrol/Dextrose/Calcium 1,011 mls @ 100 mls/hr IV .BY DURATION [facility] [place] Stop: 11/06/19 17:00 Last Admin: 11/06/19 09:20 Dose: 100 mls/hr Amino Ac/Electrol/Dextrose/Calcium (Clinimix E 5/15) 1,000 mls @ 100 mls/hr IV .BY DURATION [facility] [place] Stop: 11/06/19 17:00 Last Admin: 11/05/19 23:17 Dose: 100 mls/hr Multivitamins/Minerals 10 ml/Chromium/Copper/Manganese/Seleni/Zn 1 ml/ Amino Ac/ Electrol/Dextrose/Calcium 1,011 mls @ 80 mls/hr IV .BY DURATION [facility] [place] Stop: 11/07/19 09:45 Amino Ac/Electrol/Dextrose/Calcium (Clinimix E 5/15) 1,000 mls @ 80 mls/hr IV .BY DURATION [facility] [place] Stop: 11/07/19 09:45 Last Admin: 11/06/19 21:42 Dose: 80 mls/hr Magnesium Sulfate 2 gm/ Premix 50 mls @ 25 mls/hr IV Q6H [facility] [place] Stop: 11/10/19 05:59 Last Admin: 11/09/19 12:05 Dose: Not Given Multivitamins/Minerals 10 ml/Chromium/Copper/Manganese/Seleni/Zn 1 ml/ Amino Ac/ Electrol/Dextrose/Calcium 1,011 mls @ 40 mls/hr IV .BY DURATION [facility] [place] Stop: 11/08/19 09:55 Last Admin: 11/07/19 10:47 Dose: 40 mls/hr Amino Ac/Electrol/Dextrose/Calcium (Clinimix E 01/11) 1,000 mls @ 40 mls/hr IV .BY DURATION [facility] [place] Stop: 11/08/19 09:55 Albumin Human (Albumin 25%) 25 gm in 100 mls @ 25 mls/hr IV Q4H [facility] [place] Stop: 11/08/19 16:29 Last Admin: 11/08/19 12:28 Dose: 25 mls/hr Albumin Human (Albumin 25%) 25 gm in 100 mls @ 25 mls/hr IV Q2H [facility] [place] Stop: 11/09/19 09:59 Last Admin: 11/09/19 09:51 Dose: Not Given Piperacillin Sod/Tazobactam (Sod 3.375 gm/ Sodium Chloride) 50 mls @ 100 mls/ hr IV Q6H [facility] [place] Last Admin: 11/09/19 05:49 Dose: 100 mls/hr Piperacillin/Tazobactam/ (Dextrose 3.375 gm/ Premix) 50 mls @ 100 mls/hr IV Q6H [facility] [place] Last Admin: 11/15/19 05:47 Dose: 100 mls/hr Sodium Chloride (Normal Saline) 100 mls @ 4 mls/sec IV ASDIRECTED [facility] [place] Stop: 11/09/19 11:00 Last Admin: 11/09/19 10:18 Dose: 4 mls/sec Azithromycin 500 mg/ Sodium (Chloride) 250 mls @ 250 mls/hr IV Q24H [facility] [place] Last Admin: 11/12/19 13:09 Dose: 250 mls/hr Linezolid 600 mg/ Premix 300 mls @ 300 mls/hr IV Q12H [facility] [place] Last Admin: 11/10/19 23:43 Dose: 300 mls/hr Multivitamins/Minerals 10 ml/Chromium/Copper/Manganese/Seleni/Zn 1 ml/ Amino Ac/ Electrol/Dextrose/Calcium 1,011 mls @ 40 mls/hr IV .Q24H [facility] [place] Last Admin: 11/15/19 13:40 Dose: Not Given Iopamidol (Isovue-300 (61%)) 50 ml PO ASDIRECTED [facility] Stop: 11/03/19 04:21 Last Admin: 11/03/19 04:35 Dose: 50 ml Iopamidol (Isovue-300 (61%)) 50 ml PO ASDIRECTED [facility] Stop: 11/06/19 04:01 Last Admin: 11/06/19 04:33 Dose: 50 ml Iopamidol (Isovue-370 (76%)) 100 ml IV . DIRECTED ONE Stop: 11/09/19 09:10 Last Admin: 11/09/19 10:19 Dose: 100 ml Ketamine HCl (Ketalar) 0 mg IV BOLUS [facility] [place] Ketamine HCl (Ketalar) 0 mg IV ASDIRECTED [facility] Ketamine HCl (Ketalar) 30 mg IV ASDIRECTED [facility] [place] Labetalol HCl (Normodyne) 5 mg IVPUSH Q5M PRN PRN Reason: SBP over 160 OR DBP over 95 Lidocaine/Epinephrine (Xylocaine 1% With Epinephrine 1:100,000) Confirm Administered Dose 50 ml .ROUTE .STK-MED ONE Stop: 10/30/19 06:34 Last Admin: 10/30/19 08:47 Dose: 5 ml Lidocaine/Epinephrine (Xylocaine 1% With Epinephrine 1:100,000) Confirm Administered Dose 50 ml .ROUTE .STK-MED ONE Stop: 11/02/19 07:04 Loperamide HCl (Imodium) 4 mg PO QID [facility] [place] Last Admin: 11/02/19 09:19 Dose: Not Given Lorazepam (Ativan) 0.5 mg IVPUSH ONETIME ONE Stop: 11/09/19 11:33 Last Admin: 11/09/19 11:53 Dose: 0.5 mg Lorazepam (Ativan) Confirm Administered Dose 2 mg .ROUTE .STK-MED ONE Stop: 11/09/19 11:35 Last Admin: 11/09/19 11:56 Dose: Not Given Magnesium Oxide (Magnesium Oxide) 400 mg PO DAILY [facility] [place] Last Admin: 11/02/19 09:19 Dose: Not Given Meropenem (Merrem) Confirm Administered Dose 500 mg .ROUTE .STK-MED ONE Stop: 11/02/19 07:03 Last Admin: 11/02/19 13:27 Dose: 500 mg Metoclopramide HCl (Reglan) 10 mg IVPUSH Q6H PRN PRN Reason: NAUSEA NOT CONTROL BY ZOFRAN Last Admin: 11/02/19 19:00 Dose: 10 mg Midazolam HCl (Versed 1 Mg/Ml) Confirm Administered Dose 2 mg .ROUTE .STK-MED ONE Stop: 10/30/19 07:13 Neostigmine Methylsulfate (Neostigmine) Confirm Administered Dose 5 mg .ROUTE .STK-MED ONE Stop: 11/02/19 08:40 Non-Formulary Medication (Total Parenteral Nutrition, Central) 1,000 ml .XX .Continue Order [facility]YSE Stop: 11/01/19 18:00 Non-Formulary Medication (Tap Block, Pharmacy To Dose) 0 ml NERVRT ONARRIVE [facility]YSE Stop: 11/02/19 08:01 Non-Formulary Medication (Total Parenteral Nutrition, Central) 1,000 ml .XX .Continue Order ELYSE Stop: 11/03/19 08:01 Non-Formulary Medication (Total Parenteral Nutrition, Central) 1,000 ml .XX .Continue Order ELYSE Stop: 11/06/19 12:00 Non-Formulary Medication (Total Parenteral Nutrition, Central) 1,000 ml .XX .Continue Order ELYSE Stop: 11/07/19 21:00 Non-Formulary Medication (Total Parenteral Nutrition, Central) 1,000 ml .XX .Continue Order ELYES Stop: 11/08/19 10:00 Non-Formulary Medication (Total Parenteral Nutrition, Central) 1,000 ml .XX .Continue Order ELYSE Stop: 11/12/19 10:00 Ondansetron HCl (Zofran) Confirm Administered Dose 4 mg .ROUTE .STK-MED ONE Stop: 11/02/19 08:40 Oxycodone HCl (Oxycodone) 5 mg PO Q6H PRN PRN Reason: PAIN Pantoprazole Sodium (Protonix) 40 mg PO ACBREAKFAST [facility] [place] Last Admin: 10/30/19 11:34 Dose: 40 mg Pantoprazole Sodium (Protonix) 40 mg PO QPM [facility] [place] Last Admin: 11/01/19 16:11 Dose: 40 mg Pantoprazole Sodium (Protonix Iv) 40 mg IVPUSH Q24H [facility] [place] Last Admin: 11/03/19 18:13 Dose: 40 mg Pantoprazole Sodium (Protonix Iv) 40 mg IVPUSH Q12H [facility] [place] Last Admin: 11/07/19 08:43 Dose: 40 mg Potassium Chloride (Klor-Con M20) 20 meq PO TID [facility] [place] Last Admin: 11/11/19 08:01 Dose: 20 meq Propofol (Diprivan 20 Ml) Confirm Administered Dose 200 mg .ROUTE .STK-MED ONE Stop: 10/30/19 07:13 Propofol (Diprivan 20 Ml) Confirm Administered Dose 200 mg .ROUTE .STK-MED ONE Stop: 11/02/19 08:40 Rocuronium [place] (Zemuron) Confirm Administered Dose 50 mg .ROUTE .STK-MED ONE Stop: 11/02/19 08:40 Senna/Docusate Sodium (Senna Plus) 2 tab PO BID PRN PRN Reason: Constipation Succinylcholine Chloride (Quelicin) Confirm Administered Dose 200 mg .ROUTE .STK -MED ONE Stop: 11/02/19 08:40 - Exam Quality Assessment: Supplemental Oxygen, DVT Prophylaxis General: Alert, Oriented, Cooperative, Mild Distress Lungs: Clear to Auscultation, Normal Respiratory Effort Cardiovascular: Regular Rate, Regular Rhythm, No Murmurs GI/Abdominal Exam: Soft, Non-Tender, No Organomegaly, No Distention Extremities: Non-Tender, No Pedal Edema Sepsis Event Note - Evaluation Sepsis Screening Result: No Definite Risk - Focused Exam Vital Signs: Vital Signs Temp Pulse Resp BP Pulse Ox 11/16/19 07:31 97.1 F 74 18 117/70 97 11/16/19 07:03 86 11/16/19 05:00 96.7 F L 68 18 119/71 97 Date Exam was Performed: 11/16/19 Time Exam was Performed: 10:22 Consult PN Assessment/Plan Procedures: Procedures ALANINE AMINO (ALT) (SGPT) (02/27/19) ASSAY ALKALINE PHOSPHATASE (02/27/19) ASSAY GLUCOSE BLOOD QUANT (11/14/18) ASSAY OF CALCIUM (11/14/18) ASSAY OF CREATININE (11/14/18) ASSAY OF MAGNESIUM (02/27/19) ASSAY OF PHOSPHORUS (02/27/19) ASSAY OF PREALBUMIN (02/27/19) ASSAY OF SERUM ALBUMIN (02/27/19) ASSAY OF TRIGLYCERIDES (02/27/19) ASSAY OF UREA NITROGEN (11/14/18) ASSAY THYROID STIM HORMONE (11/14/18) BILIRUBIN TOTAL (02/27/19) BLOOD TYPING SEROLOGIC ABO (09/26/15) BLOOD TYPING SEROLOGIC RH(D) (09/26/15) C DIFF AMPLIFIED PROBE (09/23/18) CARDIOVASCULAR STRESS TEST (07/03/19) CHEST X-RAY 2VW FRONTAL&LATL (11/20/14) COMPLETE CBC AUTOMATED (11/20/14) COMPLETE CBC W/AUTO DIFF WBC (02/27/19) COMPREHEN METABOLIC PANEL (12/19/18) CT THORAX W/DYE (12/19/18) CULTR BACTERIA EXCEPT BLOOD (06/22/19) CULTURE OTHR SPECIMN AEROBIC (06/22/19) DRAIN LOWER LEG LESION (06/22/19) ELECTROLYTE PANEL (11/14/18) EMERGENCY DEPT VISIT (09/22/18) EXTRACRANIAL BILAT STUDY (12/21/18) GLUCOSE BLOOD TEST (11/20/14) HEPATIC FUNCTION PANEL (11/23/18) HT MUSCLE IMAGE SPECT MULT (07/03/19) HYDRATION IV INFUSION INIT (04/15/16) LAP VENT/ABD HERNIA REPAIR (11/20/14) LAPAROSCOPIC CHOLECYSTECTOMY (11/20/14) METABOLIC PANEL TOTAL CA (02/27/19) OVA AND PARASITES SMEARS (09/23/18) POLYSOM ANY AGE 1-3> GISELLA (02/03/16) RBC ANTIBODY SCREEN (09/26/15) ROUTINE VENIPUNCTURE (01/24/19) SMEAR COMPLEX STAIN (09/23/18) SMEAR GRAM STAIN (06/22/19) THER/PROPH/DIAG IV INF ADDON (04/15/16) THER/PROPH/DIAG IV INF INIT (04/15/16) TRANSFERASE (AST) (SGOT) (02/27/19) TTE W/DOPPLER COMPLETE (08/09/18) TX/PRO/DX INJ NEW DRUG ADDON (04/15/16) URINALYSIS AUTO W/SCOPE (09/22/18) US EXAM ABDOM COMPLETE (01/06/19) Problem List Initiated/Reviewed/Updated: Yes My Orders Last 24 Hours: My Active Orders 11/15/19 12:31 Patient Status [ADT] Routine PT Evaluation and Treatment [CONS] Routine 11/16/19 09:00 Enoxaparin [Lovenox] 40 mg SUBCUT DAILY Plan: ASSESSMENT AND RECOMMENDATIONS ACUTE HYPOXIC RESPIRATORY FAILURE-so far the picture seems to be most consistent with fluid overload and CHF and a component of ARDS, versus less likely infection. Good improvement in oxygenation and shortness of breath over the last few days. -Noninvasive positive pressure ventilation as needed HYPOKALEMIA-resolved STATUS POST REVISION DUODENAL ILEOSTOMY-stable. -Management per Dr. Nicolas HYPOTHYROIDISM-modest elevation in TSH despite ongoing thyroid replacement therapy with levothyroxine. Recent TSH elevated at 8 and dose of levothyroxine has been increased. 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 Nicolas
--- NOTE | 2019-11-16 12:00 | PN ---
DATE OF SERVICE: 11/16/2019 SUBJECTIVE: Keshav was transferred from ICU to room 204 yesterday. He states he did use his BiPAP and was able to take a nap and felt better. He did put it on during the night. He states just because he started to feel short of breath and after he used the BiPAP for a few minutes, he felt better and then took it off. Vital signs have been stable. He has been up ambulating. Oral intake 400. Urine output is 2375. He did have 1 bowel movement. REVIEW OF SYSTEMS: Remainder of review of systems negative for any pertinent positives and negatives. OBJECTIVE: GENERAL: Keshav Griffith is a pleasant 59-year-old male, alert and orientated. VITAL SIGNS: TPR 97.1, 74, 18, blood pressure 117/70, O2 sats by pulse oximetry 97% on 3 L of O2 per nasal cannula. HEENT: Negative. NECK: Supple. HEART: Regular rate and rhythm. LUNGS: Reveal decreased breath sounds bilaterally. ABDOMEN: [place] intact. Incision looks good. EXTREMITIES: Without peripheral edema. PLAN: Remove keith and apply benzoin with Steri-Strips. We will evaluate p.r.n. or in a.m. Kelly Parham PA-C /[id number]
[2019-11-17] MEDS: Nystatin Susp 100,000 Unit/ML 5 ML UD Cup PO SCH ×2 (06:05→09:12)
[2019-11-17] MEDS: Indacaterol/Glycopyrrolate 1 EA Cap.W.Dev Kit of 6 IH SCH (07:02)
[2019-11-17] MEDS: Albuterol/Ipratropium 3.0-0.5 MG/3 ML Neb Soln INH SCH ×2 (07:02→11:09)
[2019-11-17 07:29] VITALS: BP 93/52
[2019-11-17] MEDS: Pantoprazole 40 MG Tab.CR PO SCH (07:29)
[2019-11-17] MEDS: Potassium Chloride 20 MEQ Tab.ER PO SCH (08:32)
[2019-11-17] MEDS: atorvaSTATin 20 MG Tab PO SCH (08:32)
[2019-11-17] MEDS: Aspirin 81 MG Tab.EC PO SCH (08:32)
[2019-11-17] MEDS: Zinc (Zinc Gluconate) 50 MG Tab PO SCH (08:33)
[2019-11-17] MEDS: Carbamide Peroxide 6.5% Otic Soln 15 ML Bottle EARLF SCH (08:33)
[2019-11-17] MEDS: Enoxaparin 40 MG/0.4 ML Syringe SUBCUT SCH (08:33)
[2019-11-17 11:15] VITALS: PULSE 80
--- NOTE | 2019-11-17 11:52 | PCM.SN ---
- Free Text/Narrative Note: Mr. Griffith will be discharged to home with home oxygen. Diagnosis for use of home oxygen include recent ARDS with underlying COPD. During his hospitalization he has had ARDS complicating his COPD and requires ongoing use of supplemental oxygen at the time of discharge. Oxygen saturation on room air at rest on the day of discharge was 86%.
[2019-11-17] MEDS ORDERED: Clotrimazole 10 MG Troche PO SCH (14:00)
== END 2019-11-17 12:24 | disposition home health service (06) | DRG 329 ==
LOC: JP.SDSSCHI 06:35 → JP.SDS 06:35 → JP.2SS 09:15 → EDSTATUS 10:15 → JP.ICU 11-09 10:54 → JP.MS 11-15 13:42
PROVIDERS: ADMIT Surgery; ATTEND Surgery
PROC: 3E0436Z Introduction of Nutritional Substance into Central Vein, Percutaneous Approach (ICD-10-PCS; 2019-10-30)
PROC: 02HV33Z Insertion of Infusion Device into Superior Vena Cava, Percutaneous Approach (ICD-10-PCS; 2019-10-30)
PROC: 0D1B0Z4 Bypass Ileum to Cutaneous, Open Approach (ICD-10-PCS; principal; 2019-11-02)
PROC: 0DNW0ZZ Release Peritoneum, Open Approach (ICD-10-PCS; 2019-11-02)
PROC: 0DBB0ZZ Excision of Ileum, Open Approach (ICD-10-PCS; 2019-11-02)
PROC: 30233N1 Transfusion of Nonautologous Red Blood Cells into Peripheral Vein, Percutaneous Approach (ICD-10-PCS; 2019-11-03)
PROC: 5A09457 Assistance with Respiratory Ventilation, 24-96 Consecutive Hours, Continuous Positive Airway Pressure (ICD-10-PCS; 2019-11-09)
DX: K90.9 Intestinal malabsorption, unspecified (principal); J96.01 Acute respiratory failure with hypoxia; E53.8 Deficiency of other specified B group vitamins; E53.9 Vitamin B deficiency, unspecified; E61.0 Copper deficiency; E55.9 Vitamin D deficiency, unspecified; D64.9 Anemia, unspecified; E03.9 Hypothyroidism, unspecified; I25.10 Atherosclerotic heart disease of native coronary artery without angina pectoris; E78.00 Pure hypercholesterolemia, unspecified; I25.2 Old myocardial infarction; J44.9 Chronic obstructive pulmonary disease, unspecified; G47.30 Sleep apnea, unspecified; K21.9 Gastro-esophageal reflux disease without esophagitis; E11.9 Type 2 diabetes mellitus without complications; N18.9 Chronic kidney disease, unspecified; G89.29 Other chronic pain; E87.6 Hypokalemia; I12.9 Hypertensive chronic kidney disease with stage 1 through stage 4 chronic kidney disease, or unspecified chronic kidney disease; M54.9 Dorsalgia, unspecified; I87.2 Venous insufficiency (chronic) (peripheral); Z90.89 Acquired absence of other organs; Z90.49 Acquired absence of other specified parts of digestive tract; Z98.84 Bariatric surgery status; Z79.4 Long term (current) use of insulin; Z79.899 Other long term (current) drug therapy; Z79.890 Hormone replacement therapy; Z95.5 Presence of coronary angioplasty implant and graft; Z86.73 Personal history of transient ischemic attack (TIA), and cerebral infarction without residual deficits; Z87.891 Personal history of nicotine dependence
CPT/HCPCS: 36415; 36430; 36600; 71045; 71045-26; 71046; 71046-26; 71275; 71275-26; 74240; 74240-26; 80053; 82803; 82962; 83735; 83880; 84100; 84484; 85025; 85027; 86850; 86900; 86901; 86920; 86922; 87040; 88307; 94640; 94660; 94762; 97110-GP; 97162-GP; 97164-GP; 97530-GP; A9270-GY; C9113; J0171; J0330; J0456; J0690; J0694; J1071; J1100; J1170; J1642; J1644; J1650; J1815; J1940; J2020; J2060; J2185; J2250; J2405; J2543; J2704; J2710; J2765; J2795; J3010; J3410; J3420; J3475; J3490; J7050; J7120; J7121; J7620-GY; P9016; P9047; Q9967

== ENCOUNTER 2020-11-08 13:46 | Emergency (ER) | payer OTHER, MEDICARE ==
[2020-11-08 14:03] VITALS: BP 153/90; PULSE 75
--- NOTE | 2020-11-08 14:21 | EDM.PDOC ---
ED HPI GENERAL MEDICAL PROBLEM - General Chief Complaint: Lower Extremity Injury/Pain Stated Complaint: LEFT LEG PAIN Time Seen by Provider: 11/08/20 14:11 Source of Information: Reports: Patient, Family, RN Notes Reviewed History Limitations: Reports: No Limitations - History of Present Illness INITIAL COMMENTS - FREE TEXT/NARRATIVE: 60-year-old gentleman presents emergency department today with a large bruise to his left leg he is starting to develop a hematoma he does have a history of hematoma status post resection in that leg from trauma before. Left Lower Leg Pain Score (Numeric/FACES): 2 - Related Data Allergies Allergy/AdvReac Type Severity Reaction Status Date / Time amiodarone Allergy Burning Verified 10/30/19 06:59 insulin aspart [From Novolog] Allergy Rash Verified 10/30/19 06:59 amylase [From Creon] AdvReac Nausea and Verified 10/30/19 06:59 Vomiting lipase [From Creon] AdvReac Nausea and Verified 10/30/19 06:59 Vomiting protease [From Creon] AdvReac Nausea and Verified 10/30/19 06:59 Vomiting tape AdvReac Blisters Uncoded 10/30/19 06:59 Home Meds: Home Meds Nitroglycerin [Nitrostat] 0.4 mg SL ASDIRECTED 11/16/14 [History] Multivitamin [Multivitamins] 1 each PO BID #100 tab.chew 03/19/16 [Rx] Folic Acid 1 mg PO DAILY 09/26/18 [History] Loperamide [Imodium] 4 mg PO QID 09/26/18 [History] Pantoprazole Sodium [Protonix] 40 mg PO DAILY 09/26/18 [History] Thiamine HCl [B-1] 100 mg PO DAILY 09/26/18 [History] Zinc Gluconate [Zinc] 50 mg PO DAILY 09/26/18 [History] Aspirin [Halfprin] 81 mg PO DAILY tab.ec 10/19/18 [Rx] Cholecalciferol (Vitamin D3) [Vitamin D3] 5,000 unit PO DAILY 10/25/18 [History] Cyanocobalamin (Vitamin B12) [Vitamin B12] 1,000 mcg SL DAILY 10/25/18 [History] Albuterol Sulfate [Albuterol Sulfate Hfa] 1 - 2 puff INH Q4HR PRN 06/21/19 [History] Levothyroxine [Synthroid] 325 mcg PO DAILY@0730 06/21/19 [History] Umeclidinium Brm/Vilanterol Tr [Anoro Ellipta 62.5-25 MCG] 1 puff INH DAILY 06/21/19 [History] Calcium Citrate/Vitamin D3 [Calcium Citrate + D] 1 tab PO BID 06/30/19 [History] Cyclobenzaprine [Flexeril] 10 mg PO TID PRN 10/26/19 [History] Diphenoxylate HCl/Atropine [Lomotil] 1 each PO QID 10/26/19 [History] Magnesium Oxide 400 mg PO DAILY 10/26/19 [History] Testosterone Cypionate [Depo-Testosterone] 1.5 ml IM Q14D 10/26/19 [History] atorvaSTATin [Lipitor] 20 mg PO DAILY 10/26/19 [History] Clotrimazole [Mycelex] 10 mg PO 5XDAY #35 tj 11/17/19 [Rx] Past Medical History HEENT History: Reports: None Cardiovascular History: Reports: Angina, CAD, High Cholesterol, Hypertension, ID, Stents Respiratory History: Reports: COPD, Sleep Apnea, SOB Other Respiratory History: sleep apnea resolved with weight loss; SOB since aspiration Gastrointestinal History: Reports: GERD Other Gastrointestinal History: GERD resolved with bariatric surgery Genitourinary History: Reports: Acute Renal Failure, Chronic Renal Insuffiency, Renal Disease Musculoskeletal History: Reports: Back Pain, Chronic, Fracture Neurological History: Reports: CVA, Seizure Endocrine/Metabolic History: Reports: Diabetes, Type II, Hypothyroidism, IDDM Other Endocrine/Metabolic History: diabetes resloved with bariatric surgery Hematologic History: Reports: Blood Transfusion(s) Immunologic History: Reports: None Dermatologic History: Reports: Venous Stasis Dermatitis Other Dermatologic History: non--healing wound left shn - Infectious Disease History Infectious Disease History: Reports: Chicken Pox, Measles, Mumps - Past Surgical History HEENT Surgical History: Reports: Adenoidectomy, Tonsillectomy Cardiovascular Surgical History: Reports: Coronary Artery Stent Respiratory Surgical History: Reports: None GI Surgical History: Reports: Bariatric Procedure, Cholecystectomy, Colonoscopy, EGD, Hernia Repair/Other Other GI Surgeries/Procedures: gastrectomy and duodenal switch February 2016 Male Surgical History: Reports: Circumcision Other Male Surgeries/Procedures: bilat orcectomy Endocrine Surgical History: Reports: None Neurological Surgical History: Reports: None Musculoskeletal Surgical History: Reports: Other (See Below) Other Musculoskeletal Surgeries/Procedures:: 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 Dermatological Surgical History: Reports: None Social & Family History - Family History Family Medical History: No Pertinent Family History - Tobacco Use Tobacco Use Status *Q: Former Tobacco User Used Tobacco, but Quit: Yes Month/Year Tobacco Last Used: 2 years ago - Caffeine Use Caffeine Use: Reports: Coffee Review of Systems - Review of Systems Review Of Systems: See Below Constitutional: Reports: No Symptoms Respiratory: Reports: No Symptoms Cardiovascular: Reports: No Symptoms Skin: Reports: Bruising ED EXAM, GENERAL - Physical Exam Exam: See Below Free Text/Narrative:: Examination of the wound there is a hematoma about mid calf medial aspect left leg it is about 2 to 3 cm in diameter it is tender to the touch it is about 3 hours old Exam Limited By: No Limitations General Appearance: Alert, WD/WN, No Apparent Distress Respiratory/Chest: No Respiratory Distress Course - Vital Signs Last Recorded V/S: Last Vital Signs Temp 98.0 F 11/08/20 14:04 Pulse 75 11/08/20 14:04 Resp 18 11/08/20 14:04 BP 153/90 H 11/08/20 14:04 Pulse Ox 95 11/08/20 14:04 Departure - Departure Time of Disposition: 14:20 Disposition: Home, Self-Care 01 Condition: Fair Clinical Impression: Hematoma of left lower leg - Discharge Information Referrals: Sammy Vallejo MD [Primary Care Provider] - Additional Instructions: Continue with your compression wrap use Tylenol as needed for pain control, follow-up with general surgery next week if no improvement return [facility] department worsening of symptoms Sepsis Event Note (ED) - Evaluation Sepsis Screening Result: No Definite Risk - Focused Exam Vital Signs: Vital Signs Temp Pulse Resp BP Pulse Ox 11/08/20 14:04 98.0 F 75 18 153/90 H 95 11/08/20 13:57 98.0 F 75 18 153/90 H 95 - Assessment/Plan Plan: Assessment Acuity = acute Site and laterality = hematoma left leg Etiology = trauma Manifestations = none Location of injury = Home Lab values = none Plan We did discuss options including surgical intervention he elected to do watchful waiting at this time he is going to do a compression wrap with an Miki bandage and then follow-up with general surgery next week with any worsening of condition This note was dictated using [employer] voice recognition software please call with any questions on syntax or grammar.
== END 2020-11-08 14:30 | disposition home or self-care (01) ==
LOC: JP.ED 13:46
DX: S80.12XA Contusion of left lower leg, initial encounter (principal); I25.10 Atherosclerotic heart disease of native coronary artery without angina pectoris; E78.00 Pure hypercholesterolemia, unspecified; I25.2 Old myocardial infarction; J44.9 Chronic obstructive pulmonary disease, unspecified; K21.9 Gastro-esophageal reflux disease without esophagitis; E03.9 Hypothyroidism, unspecified; I12.9 Hypertensive chronic kidney disease with stage 1 through stage 4 chronic kidney disease, or unspecified chronic kidney disease; N18.9 Chronic kidney disease, unspecified; E11.22 Type 2 diabetes mellitus with diabetic chronic kidney disease; Z88.8 Allergy status to other drugs, medicaments and biological substances; Z91.048 Other nonmedicinal substance allergy status; Z79.82 Long term (current) use of aspirin; Z79.899 Other long term (current) drug therapy; Z95.5 Presence of coronary angioplasty implant and graft; Z86.73 Personal history of transient ischemic attack (TIA), and cerebral infarction without residual deficits; Z87.891 Personal history of nicotine dependence; X58.XXXA Exposure to other specified factors, initial encounter
CPT/HCPCS: 99282; 99283

== ENCOUNTER 2025-08-18 16:56 | Emergency (ER) | payer BC, MEDICARE ==
[2025-08-18 17:34] LABS: BASOPHILS ABSOLUTE AUTO 0.03 K/uL (0.00-0.10); BASOPHILS PERCENT AUTO 0.2 % (0.1-1.3); EOSINOPHILS ABSOLUTE AUTO 0.05 K/uL (0.00-0.40); EOSINOPHILS PERCENT AUTO 0.3 % (0.0-5.4); IMMATURE GRAN ABSOLUTE AUTO 0.15 K/uL (0.00-0.23); IMMATURE GRAN PERCENT AUTO 0.8 % (0.0-0.7); LYMPHOCYTES ABSOLUTE AUTO 0.89 K/uL (0.8-3.3); LYMPHOCYTES PERCENT AUTO 4.8 % (11.4-47.7); MONOCYTES ABSOLUTE AUTO 1.72 K/uL (0.20-0.90); MONOCYTES PERCENT AUTO 9.2 % (3.3-12.6); NEUTROPHILS ABSOLUTE AUTO 15.86 K/uL (1.0-7.6); NEUTROPHILS PERCENT AUTO 84.7 % (40.0-78.1); PLATELET COUNT,PLT 217 K/uL (130-375); RED BLOOD CELL COUNT 4.95 M/uL (4.14-5.76); WHITE BLOOD CELL COUNT,WBC 18.7 K/uL (3.2-11.0)
[2025-08-18 17:35] LABS: BASE EXCESS VENOUS -3.1 mm/L; BICARBONATE,VENOUS 20.7 mmol/L; O2 SATURATION VENOUS 66.1; OXYHEMOGLOBIN 63.2 %; PCO2 VENOUS 35.0 mm/Hg; PH,VENOUS 7.389 (7.350-7.450); TOTAL HEMOGLOBIN 15.6 g/dL (13.5-18.0)
[2025-08-18 17:36] LABS: PO2 VENOUS 36.1 mm/Hg
[2025-08-18 17:41] LABS: APPEARANCE,URINE CLOUDY (CLEAR); GLUCOSE,URINE NEGATIVE (NEGATIVE); OCCULT BLOOD,URINE LARGE (NEGATIVE)
[2025-08-18 17:50] LABS: SQUAMOUS EPITHELIAL CELLS,UR FEW /HPF; UROTHELIAL CELLS,URINE NOT SEEN /HPF
[2025-08-18 17:56] LABS: INR 1.1
[2025-08-18 18:00] LABS: A/G RATIO 0.8 (1.2-2.2); ALANINE AMINOTRANSFERASE,ALT 82 U/L (12-78); ASPARTATE AMNIOTRANSFERASE,AST 40 U/L (15-37); BILIRUBIN TOTAL 1.7 mg/dL (0.2-1.0); BLOOD UREA NITROGEN,BUN 41 mg/dL (7-18); CARBON DIOXIDE,CO2 22 mmol/L (21-32); CHLORIDE,CL 104 mmol/L (100-108); CREATININE 2.1 mg/dL (0.8-1.3); EST CRCL DRUG DOSING (CG) 27.22 mL/min; ESTIMATED GFR 34 mL/min (>60); GLUCOSE RANDOM 120 mg/dL (74-106); POTASSIUM,K 5.2 mmol/L (3.6-5.2); PROTEIN TOTAL,TP 6.8 g/dL (6.4-8.2); SODIUM,NA 135 mmol/L (140-148)
[2025-08-18 18:04] LABS: TROPONIN I HIGH SENSITIVITY 14.2 pg/mL (<=60.3)
[2025-08-18 18:11] LABS: CORONAVIRUS COVID-19 NAA NEGATIVE (NEGATIVE); INFLUENZA A NAA NEGATIVE (NEGATIVE); INFLUENZA B NAA NEGATIVE (NEGATIVE); RESPIRATORY SYNCYTIAL VIR NAA NEGATIVE (NEGATIVE)
[2025-08-18] MEDS ORDERED: Iopamidol 755 Mg/ML 100 ML Bottle IV SCH (18:45)
[2025-08-18] MEDS: Sodium Chloride 0.9% 10 ML Syringe FLUSH ONE (20:20)
[2025-08-18 20:45] VITALS: BP 134/71; PULSE 85
== END 2025-08-18 21:07 | disposition home or self-care (01) ==
LOC: JP.ED 16:56
DX: J18.9 Pneumonia, unspecified organism (principal); N39.0 Urinary tract infection, site not specified; I25.10 Atherosclerotic heart disease of native coronary artery without angina pectoris; E78.00 Pure hypercholesterolemia, unspecified; E03.9 Hypothyroidism, unspecified; E11.22 Type 2 diabetes mellitus with diabetic chronic kidney disease; N18.9 Chronic kidney disease, unspecified; I10 Essential (primary) hypertension; Z79.890 Hormone replacement therapy; Z88.8 Allergy status to other drugs, medicaments and biological substances; Z79.82 Long term (current) use of aspirin; Z79.899 Other long term (current) drug therapy; Z90.49 Acquired absence of other specified parts of digestive tract; Z87.891 Personal history of nicotine dependence
CPT/HCPCS: 36415; 71275; 80053; 81001; 82803; 83605; 83735; 83880; 84484; 85025; 85379; 85610; 86140; 87040; 87086; 87637; 93005; 93010; 94640; 96361; 96365; 99284; 99285-25; A9270-GY; J0696; J7030